=== PATIENT | male | born 1975 | race Caucasian/White ===

== ENCOUNTER 2017-05-13 05:49 | Inpatient (IN) | payer MEDICAID ==
[~2017-05-13] VITALS: Ht 182.9 cm; Wt 110.7 kg
[2017-05-13] VITALS (7 sets, daily range): BP systolic 138–159; BP diastolic 71–87
[~2017-05-13 05:49] MED LIST: BENTYL GENERIC10 MG PO; CARVEDILOL 1212.5 MG PO; CORGARD 40MG TA40 MG PO; DILAUDID2 MG PO; FLEXERIL10 MG PO; FUROSEMIDE 20MG20 MG PO; HUMALOG MIX75/253 ML SC; INSULIN GL100 UNITS/ SC; JANUVIA50 MG PO; KEFLEX 500MG.500 MG PO; LACTULOSE10 GM/15 M PO; LEVAQUIN500 MG PO; METFORMIN HCL1000 MG PO; NYSTATIN SU60 ML/BOT PO; PANTOPRAZOLE SO40 MG PO; SPIRONOLACTONE50 MG PO; TIZANIDINE HCL 44 MG PO; XIFAXAN550 MG PO
--- NOTE | 2017-05-13 06:03 | Emergency Room Report ---
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 N Clinical Suspician of Infection? N Mental Status: 3 - Acutely Altered Sepsis Risk:Low Sepsis Risk Have you (or family members/close friends) recently traveled outside the [place]? N If Yes, where/when: Have you had exposure to infectious disease within the past month? N TB? Other? Specify: Source patient, RN notes reviewed, family, old records Exam Limitations no limitations Comment pt with known liver disease and with recent uk admit - pt with change in mental status with not responding to commands - no fever/rash or trauma Cardiac Chest Pain Chest pain indicative of cardiac No Timing/Duration this evening Severity moderate ALLERGIES Coded Allergies: codeine (11/08/16) cyclobenzaprine (From FLEXERIL) (11/08/16) Home Medications Reported Medications TIZANIDINE HCL (Tizanidine Hcl 4 Mg Tablet) 2 MG PO 1900 Furosemide (Furosemide) 20 MG PO DAILY PRN DIURETIC #30 TAB Rifaximin (Xifaxan) 550 MG PO BID METFORMIN HCL (Metformin 1000MG) 1,000 MG PO BID Pantoprazole Sodium (Pantoprazole 40MG) 40 MG PO BID Lactulose (Lactulose) 20 GM PO TID INSULIN NPL/INSULIN LISPRO (Humalog Mix 75-25 Kwikpen) 30 UNITS SC BID #30 Carvedilol (Carvedilol 12.5MG) 12.5 MG PO BID #60 Spironolactone (Spironolactone) 50 MG PO DAILY PRN DIURETIC #30 History Medical History General CAD? No Angina: No [place]: No Hypertension? Yes Hyperlipidemia? No CHF? No DVT? No PE? No COPD? No Asthma? No Anemia? No GERD? Yes Gastric ulcers? No GI Bleed? No Hernia? No Thyroid Problems? No Hypothyroidism? No CVA? No Seizures? No Diabetes? Yes Insulin Dependent: Yes Insulin Pump: No Home FSBS? Yes Renal Insuffiency? No End Stage Renal Disease? No UTI? No Stones? Yes BPH? Yes GB Disease: No Nephritic Syndrome? No Asplenia? No Hepatitis? No Sickle Cell Disease? No Arthritis? No Migraines? No Cataracts? No Glaucoma? No MRSA? No HIV? No TB? No Anxiety? Yes Depression? No Cancer? No More? Yes Additional hx: 1. NON ALCOHOLIC CIRRHOSIS OF LIVER 2. GUILLAUME 3. GILBERTS SYNDROME Immunization Hx DT/Tetanus 1-4 Years Ago Flu 2016-17FSN Pneumonia Received In Past Surgical Hx Previous Surgery?Y ESOPHAGIAL BANDING Family History Family Hx Diabetes Yes CAD No Hypertension Yes Hyperlipidemia No Cancer Yes TB No Social History Smoking Hx Smoker: Never Smoker Tobacco: No Type Cigarettes Packs/day N/A Alcohol Alcohol: No Drugs none Review of Systems All Other Systems Reviewed and Negative Constitutional see HPI, denies fever, weakness Eyes denies drainage ENT denies: ear discharge, epistaxis, throat pain. Respiratory denies cough, denies shortness of breath, denies wheezing Cardiovascular denies chest pain, denies palpitations, denies syncope Gastrointestinal denies abdominal pain, denies diarrhea, denies vomiting Genitourinary denies: dysuria, frequency, hesitancy, hematuria. Musculoskeletal denies back pain, denies joint pain, denies joint swelling, denies neck pain Skin denies rash Psychiatric/Neurological see HPI, denies headache, seizure, other Physical Exam Vital Signs Vital Signs Date Time Temp Pulse Resp B/P Pulse O2 O2 Flow FiO2 Ox Delivery Rate 05/13 0741 82 24 147/74 97 05/13 0648 80 24 143/66 97 05/13 0551 98.6 86 12 159/75 98 - WBC >12,000 or <4,000 or 10% bands? 2 or more SIRS Criteria Met? B/P:147/74 MAP:103 Creatinine >2.0? UA output<0.5ml/kg/hr for 2 hrs? Platelet count >100,000? Lactate >2.0mmol/1? INR >1.2 or PTT > than 60 sec? Evidence of Organ Dysfunction? Provider documented clinical suspician of infection? N Sepsis Criteria Count: 1 Sepsis Risk: Low Sepsis Risk General Appearance no apparent distress Eye Exam - bilateral eye PERRL, bilateral eye EOMI, bilateral eye icterus Ear, Nose, Throat dry mm and no evid of tongue biting Neck supple Respiratory Status No: respiratory distress. Lung Sounds bilateral: decreased breath sounds. Cardiovascular regular rate/rhythm, systolic murmur Peripheral Pulses Pulses normal Yes Gastrointestinal soft, no guarding, no rebound Extremities no calf tenderness, swelling Neurologic awake with no focal changes and no posturing. sl tremor Reflexes Reflexes normal No Mental status altered mental status Skin intact Medical Decision Making LABS/Meds/Orders Pt receiving controlled substance in ED? No Results/Orders Laboratory Tests 05/13/17 0640: Lactic Acid 3.2 H 05/13/17 0640: Ammonia 222 H 05/13/17 0555: Sodium 142, Potassium 4.1, Chloride 105, Carbon Dioxide 24, BUN 34 H, Creatinine 2.1 H, Estimated Creat Clear 69, Estimated GFR (MDRD) 35, Glucose 237 H, Calcium 9.3, Total Bilirubin 5.1 H, AST 61 H, ALT 33, Alkaline Phosphatase 166 H, Creatine Kinase 97, CK-MB (CK-2) Rel Index 0.5, CK and CKMB Interp < 0.5, Troponin I < 0.02, Total Protein 7.2, Albumin 3.3 L, Globulin 3.9 H, Albumin/Globulin Ratio 0.8 L, PT 13.0 H, INR 1.20 H, APTT 29.1, WBC 4.4 L, RBC 2.77 L, Hgb 10.4 L, Hct 30.6 L, MCV 110.2 H, RDW 17.7 H, Plt Count 125 L, MPV 8.4, Gran % 66.3, Gran # 2.9, Lymphocytes % 23.9, Monocytes % 6.4, Eosinophils % 3.1, Basophils % 0.4, Lymphocytes # 1.0, Monocytes # 0.3, Eosinophils # 0.1, Basophils # 0.0, PUBS MCHC 34.0, MCH 37.4 H Current Medication Orders Sig/Jarett Start time Last Medication Dose Route Stop Time Status Admin Sodium Chloride 1,000 ML .STK-MED ONE 05/13 731 DC IV Lactulose 60 GM ONCE ONE 05/13 730 DC 05/13 KS 05/13 07 0748 Sodium Chloride 1,000 ML .Q10H 05/13 715 AC IV 05/13 190 Sodium Chloride 10 ML PRN PRN 05/13 0715 AC IV 05/14 703 Sodium Chloride 1,000 ML .STK-MED ONE 05/13 707 DC IV Sodium Chloride 10 ML PRN PRN 05/13 06 AC IV 05/14 558 Orders Procedure Date/time Status DIET-NOTHING BY MOUTH 05/13 B Active Decision to admit 05/13 735 Active LACTIC ACID FOLLOW UP 05/13 720 Active CULTURE, BLOOD 05/13 702 Active LACTIC ACID 05/13 702 Complete FSBS REQUEST BY CARE AREA 05/13 605 Active ELECTROCARDIOGRAM REQUEST 05/[address] SCAN REQ 05/13 558 Active IV SALINE LOCK 05/13 558 Active PARTIAL THROMBOPLASTIN TIME 05/13 558 Complete PROTHROMBIN TIME 05/13 558 Complete COMPLETE METABOLIC PANEL 05/13 558 Complete CBC WITH AUTO DIFF 05/13 558 Complete CARDIAC ENZYMES 05/13 558 Complete AMMONIA 05/13 558 Complete CM/EKG 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 ST/Twave chgs XRAY/CT/US XRAY/CT/US 1 XRAY chest XR interpretation by reviewed by me Xray Results abnormal (cm) CT head CT interpretation by discussed w/radiologist Time results known: 623 CT Results normal/NAD XRAY/CT/US [address] interpretation by discussed w/radiologist Time results known: 811 CT Results normal/NAD Departure Departure Time of Disposition 08 Disposition DC/XFER from ER to [facility] Clinical Impression Primary Impression: Hepatic encephalopathy Secondary Impressions: Renal insufficiency Condition STABLE Referrals JOEY ARNDT (Family) discussed with dr costello ED Critical Care Critical Care Yes Time spent 75-104 min Vital system(s) involved: Metabolic Failure I was present at bedside for Coordinating pt's care, Interpreting EKGs/Strips , Reviewing lab results, Reviewing old records, Discussing pt condition, For re- examinations, Examining radiographs at 0813
[2017-05-13 06:12] LABS: LYMPH % 23.9 % (10-50)
[2017-05-13 06:18] LABS: HEMOGLOBIN 10.4 g/dL (14.1-18.0)
[2017-05-13 06:42] LABS: BUN 34 mg/dL (7-18); GFR (ESTIMATED) 35 ML/MIN (>60)
--- NOTE | 2017-05-13 07:27 | RADIOLOGY REPORT PS360 ---
CHEST-AP VIEW ONLY HISTORY: Shortness of breath sob ORDERING PHYSICIAN: Jamila Monreal MD PATIENT AGE: 42 years COMPARISON: 11/06/2016 FINDINGS: There are low lung volume with mild cardiomegaly. Mediastinum is also prominent but could be related to the supine AP technique no lobar consolidation or collapse is evident. IMPRESSION: Cardiomegaly with mild prominence of the mediastinum.
--- NOTE | 2017-05-13 07:29 | RADIOLOGY REPORT PS360 ---
CT HEAD W/O CONTRAST HISTORY: Unresponsive, altered mental status/memory loss/confusion or disorientation STROKE PROTOCOL ORDERING PHYSICIAN: Jamila Monreal MD PATIENT AGE: 42 years COMPARISON: None TECHNIQUE: Axial images obtained without contrast. Brain and bone windows reviewed. FINDINGS: No midline shift, mass effect, intracranial hemorrhage, hydrocephalus, or extra-axial fluid collection is evident. The calvarium has an unremarkable appearance. No mastoid effusion. The visualized paranasal sinuses are unremarkable. IMPRESSION: Negative CT head without contrast. No acute finding. There is no evidence of intracranial hemorrhage, focal mass, or acute territorial infarction. A negative CT does not exclude an acute CVA. A follow-up head CT or MRI is recommended if neurological symptoms persist
--- NOTE | 2017-05-13 13:09 | ACUTE CARE PROGRESS NOTE (QUA) ---
Progress Notes Subjective Date 05/13/17 Time 1258 Note 42 y.o. WM with liver failure, due to GUILLAUME. Patient of [facility]. No beds at , so admitted here. Treated with fluids and lactulose in ER with improvement in ammonia level. Patient is seen in ICU. He is responsive, but not really cogent. No family present. Objective Findings Laboratory Tests 05/13/17 1025: Lactic Acid 4.3 H 05/13/17 1025: Ammonia 130 H 05/13/17 1025: Sodium 145, Potassium 4.1, Chloride 107, Carbon Dioxide 22, BUN 32 H, Creatinine 1.9 H, Estimated Creat Clear 76, Estimated GFR (MDRD) 39, Glucose 176 H, Calcium 9.3, Total Bilirubin 6.6 H, AST 55 H, ALT 30, Alkaline Phosphatase 161 H, Total Protein 7.4, Albumin 3.4, Globulin 4.0 H, Albumin/ Globulin Ratio 0.9 L 05/13/17 0640: Lactic Acid 3.2 H 05/13/17 0640: Ammonia 222 H 05/13/17 0555: Sodium 142, Potassium 4.1, Chloride 105, Carbon Dioxide 24, BUN 34 H, Creatinine 2.1 H, Estimated Creat Clear 69, Estimated GFR (MDRD) 35, Glucose 237 H, Calcium 9.3, Total Bilirubin 5.1 H, AST 61 H, ALT 33, Alkaline Phosphatase 166 H, Creatine Kinase 97, CK-MB (CK-2) Rel Index 0.5, CK and CKMB Interp < 0.5, Troponin I < 0.02, Total Protein 7.2, Albumin 3.3 L, Globulin 3.9 H, Albumin/Globulin Ratio 0.8 L, PT 13.0 H, INR 1.20 H, APTT 29.1, WBC 4.4 L, RBC 2.77 L, Hgb 10.4 L, Hct 30.6 L, MCV 110.2 H, RDW 17.7 H, Plt Count 125 L, MPV 8.4, Gran % 66.3, Gran # 2.9, Lymphocytes % 23.9, Monocytes % 6.4, Eosinophils % 3.1, Basophils % 0.4, Lymphocytes # 1.0, Monocytes # 0.3, Eosinophils # 0.1, Basophils # 0.0, PUBS MCHC 34.0, MCH 37.4 H Microbiology 05/13 640 BLOOD: Anaerobic Blood Culture - RECD 05/13 640 BLOOD: Aerobic Blood Culture - RECD 05/13 640 BLOOD: Anaerobic Blood Culture - RECD 05/13 640 BLOOD: Aerobic Blood Culture - RECD Last VS-Temp:98.6 B/P:142/83 Pulse:91 Resp:20 SaO2:97 Last weight lbs:237 oz:0 K.503 Method:Floor Scales Exam General appearance: awake, no acute distress Eyes: scleral icterus ENT: mucous membranes moist Cardiovascular: regular rate & rhythm Respiratory: clear to auscultation ABD: soft, no tenderness (ascites is likely) Extremities: edema (trace) Assessment/Plan Problem List 1. Cirrhosis 2. Diabetes mellitus Status: Chronic 3. GUILLAUME (nonalcoholic steatohepatitis) Status: Chronic 4. Chronic liver failure Status: Chronic 5. Hepatic encephalopathy 6. Ascites Patient condition Guarded Plan: see orders. GI consult. Transfer when possible. This inpt stay is expected to cross 2 MNs from start of care No at 1308
--- NOTE | 2017-05-13 18:00 | HISTORY AND PHYSICAL REPORT ---
History and Physical (FCA) Date of admission: 05/13/17 Chief complaint: Altered mental status History: History of Present Illness: Mr Washington is a 42 y.o. WM with liver failure, due to GUILLAUME. Patient of [facility] and is on the transplant list. Is follwed by the clinic q 4-6 weeks. No beds were available at , so he was admitted here. Family MD is Dr. Zaldivar in [place]. Patient was discharged from [facility] about 3 days ago. He was doing well. Last night he became poorly responsive and was picking at the air. She checked his BS which was in the 200's and then called EMS who brought him to [facility] ER. He was treated with fluids and lactulose in ER with improvement in ammonia level. At time of this exam patient is coherent and answers all questions appropritely. and son are at bedside. He is hungry. He denies pain and SOB. He stated several times during the exam that he will not go to . His last admission was a bad experience. His bowels are moving in response to the lactulose. His states he normally takes 40mg qid. Past Medical History: Medical History: CAD? No Angina: No [place]: No Hypertension? Yes Hyperlipidemia? No CHF? No DVT? No PE? No COPD? No Asthma? No Anemia? No GERD? Yes Gastric ulcers? No GI Bleed? No Hernia? No Thyroid Problems? No Hypothyroidism? No CVA? No Seizures? No Diabetes? Yes Insulin Dependent: Yes Insulin Pump: No Home FSBS? Yes Renal Insuffiency? No UTI? No Stones? Yes BPH? Yes GB Disease: No Nephritic Syndrome? No Asplenia? No Hepatitis? No Sickle Cell Disease? No Arthritis? No Migraines? No Cataracts? No Glaucoma? No MRSA? No HIV? No TB? No Anxiety? Yes Depression? No Cancer? No More? Yes Additional hx: 1. NON ALCOHOLIC CIRRHOSIS OF LIVER 2. GUILLAUME 3. GILBERTS SYNDROME Surgical history: Previous Surgery?Y ESOPHAGIAL BANDING Medications: Reported Medications TIZANIDINE HCL (Tizanidine Hcl 4 Mg Tablet) 2 MG PO 1900 Furosemide (Furosemide) 20 MG PO DAILY PRN DIURETIC #30 TAB Rifaximin (Xifaxan) 550 MG PO BID METFORMIN HCL (Metformin 1000MG) 1,000 MG PO BID Pantoprazole Sodium (Pantoprazole 40MG) 40 MG PO BID Lactulose (Lactulose) 20 GM PO TID INSULIN NPL/INSULIN LISPRO (Humalog Mix 75-25 Kwikpen) 30 UNITS SC BID #30 Carvedilol (Carvedilol 12.5MG) 12.5 MG PO BID #60 Spironolactone (Spironolactone) 50 MG PO DAILY PRN DIURETIC #30 Allergies: Coded Allergies: codeine (11/08/16) cyclobenzaprine (From FLEXERIL) (11/08/16) Family History: Family history: Postive for: DM, HTN, cancer. Social History: Smoking Hx Tobacco: No Smoker: Never Smoker Type: N/A Packs/day: N/A Are you exposed to second hand No Alcohol: Alcohol: No Hx of Drug Use: Drug Use? No Patien't marital status is: Patient's support system is: excellent Review of Systems: ENT No: ear ache, mouth pain, sore throat. Cardiovascular No: chest pain, edema, palpitations. Respiratory No: shortness of air, hemoptysis, non-productive, productive cough (sputum), wheezing. GI No: GERD, abdominal pain, constipation, diarrhea, hematemeis, hematochezia, melena, nausea, vomitting. (male) No: frequency, hematuria. Neurological Positive for: confusion. No: headache, seizure, syncope. Musculoskeletal No: extremity pain, joint pain. Additional information: leg weakness at times Physical Exam: Vital signs: 1ST Vital Signs Result Date Time Pulse Ox 98 05/13 551 B/P 159/75 05/13 551 Temp 98.6 05/13 551 Pulse 86 05/13 551 Resp 12 05/13 551 O2 Delivery ROOM AIR 05/13 1308 Exam: General appearance: alert, no acute distress, shakes when in sitting position Eyes: anicteric, pupils reactive to light ENT: mucous membranes moist, pharynx normal Neck: non-tender, carotid bruit (versus radiating murmur), lymphadenopathy ( absent), thyroid (normal) Cardiovascular: regular rate & rhythm, murmur Respiratory: clear to auscultation (bilat anterior and posterior) ABD: non-distended, soft, bowel sounds present Extremities: no peripheral edema, pedal pulses (present), no calf tenderness Neuro: alert, oriented, speech is slow Lab data: Labs: Laboratory Tests 05/13/17 1025: Lactic Acid 4.3 H 05/13/17 1025: Ammonia 130 H 05/13/17 1025: Sodium 145, Potassium 4.1, Chloride 107, Carbon Dioxide 22, BUN 32 H, Creatinine 1.9 H, Estimated Creat Clear 76, Estimated GFR (MDRD) 39, Glucose 176 H, Calcium 9.3, Total Bilirubin 6.6 H, AST 55 H, ALT 30, Alkaline Phosphatase 161 H, Total Protein 7.4, Albumin 3.4, Globulin 4.0 H, Albumin/ Globulin Ratio 0.9 L 05/13/17 06: Lactic Acid 3.2 H 05/13/1740: Ammonia 222 H 05/13/17 0555: Sodium 142, Potassium 4.1, Chloride 105, Carbon Dioxide 24, BUN 34 H, Creatinine 2.1 H, Estimated Creat Clear 69, Estimated GFR (MDRD) 35, Glucose 237 H, Calcium 9.3, Total Bilirubin 5.1 H, AST 61 H, ALT 33, Alkaline Phosphatase 166 H, Creatine Kinase 97, CK-MB (CK-2) Rel Index 0.5, CK and CKMB Interp < 0.5, Troponin I < 0.02, Total Protein 7.2, Albumin 3.3 L, Globulin 3.9 H, Albumin/Globulin Ratio 0.8 L, PT 13.0 H, INR 1.20 H, APTT 29.1, WBC 4.4 L, RBC 2.77 L, Hgb 10.4 L, Hct 30.6 L, MCV 110.2 H, RDW 17.7 H, Plt Count 125 L, MPV 8.4, Gran % 66.3, Gran # 2.9, Lymphocytes % 23.9, Monocytes % 6.4, Eosinophils % 3.1, Basophils % 0.4, Lymphocytes # 1.0, Monocytes # 0.3, Eosinophils # 0.1, Basophils # 0.0, PUBS MCHC 34.0, MCH 37.4 H Microbiology 05/13 640 BLOOD: Anaerobic Blood Culture - RECD 05/13 640 BLOOD: Aerobic Blood Culture - RECD 05/13 640 BLOOD: Anaerobic Blood Culture - RECD 05/13 640 BLOOD: Aerobic Blood Culture - RECD Radiology results: Results: 05/13/17 CXR IMPRESSION: Cardiomegaly with mild prominence of the mediastinum. 05/13/17 CT of head IMPRESSION: Negative CT head without contrast. No acute finding. There is no evidence of intracranial hemorrhage, focal mass, or acute territorial infarction. A negative CT does not exclude an acute CVA. A follow-up head CT or MRI is recommended if neurological symptoms persist Diagnosis(es): 1. Cirrhosis 2. Diabetes mellitus Status: Chronic 3. GUILLAUME (nonalcoholic steatohepatitis) Status: Chronic 4. Chronic liver failure Status: Chronic 5. Hepatic encephalopathy 6. Ascites Plan: lactulose and monitor ammonia level at 1800
[2017-05-13] MEDS ORDERED: GABAPENTIN 600600 MG PO (18:56)
--- NOTE | 2017-05-13 22:28 | RADIOLOGY REPORT PS360 ---
PROCEDURE: 2-D M-mode and color Doppler study INDICATIONS FOR THE TEST: Chest pain COPD Heart Murmur Tobacco Smoking Palpitations Fatigue Syncope Edema Hypertension Diabetes Mellitus Rheumatic Fever SOB BERRIOS Obesity Hyperlipidemia Family History HD Additional History CARDIOMEGALY, LIVER FAILURE PATIENT INFORMATION HEIGHT: 72 WEIGHT:246 GENDER: Male B/P:142/83 2-D/M-MODE INTERPRETATION: 2-D MEASUREMENTS OBSERVED VALUES IN CMS Right Ventricular Dimension (RVDd) 3.1 Interventricular Septum (Thickness)(IVsd) 1.0 Left Ventricular Internal Dimensions(LVIDd) 5.6 Left Ventricular Posterior Wall (Thickness)(LVPWd) 1.2 Aortic Root 3.1 Aortic Cusp Separation 1.7 Left Atrial Dimensions (LAD) 4.4 2D 1. Left atrium is mildly enlarged, left ventricle is normal size, the left ventricle wall thickness is upper limit of the normal, there is preserved left ventricular systolic function, visually estimated ejection fraction 55% with no obvious regional wall motion abnormality. There is abnormal septal motion. 2. The right atrium and right ventricle are moderately enlarged, contractility of the right ventricle is mildly reduced. 3. The aortic valve is minimally thickened and fibrosed. 4. The mitral and tricuspid valve are grossly normal. 5. The pulmonic valve is poorly visualized. 6. No significant pericardial effusion noted. DOPPLER INTERROGATION: Doppler interrogation of the aortic mitral and tricuspid valvular presence of mild mitral and tricuspid regurgitation, calculated right ventricular systolic pressure is 64 mmHg consistent with moderate pulmonary hypertension. Diastolic parameters are inconclusive. CONCLUSION: 1. Biatrial enlargement, normal left ventricular size, visually estimated ejection fraction 55%, with no obvious regional wall motion abnormality, there is abnormal septal motion. 2. Moderately enlarged right atrium and right ventricle, contractility of the right ventricle is mildly reduced. 3. Mild mitral and tricuspid regurgitation, calculated right ventricular systolic pressure 64 mmHg consistent with moderate pulmonary hypertension. 4. No significant pericardial effusion noted.
[2017-05-14] VITALS (7 sets, daily range): BP systolic 132–159; BP diastolic 72–92
[2017-05-14 07:00] LABS: HEMOGLOBIN 9.5 g/dL (14.1-18.0); LYMPH # 1.2 K/mm3 (0.7-4.5); LYMPH % 29.9 % (10-50)
--- NOTE | 2017-05-14 07:16 | PHARMACY CLINIC NOTE ---
Patient Demographics Patient Demographics Admission date: 05/13/17 Date: 05/14/17 Time: 0716 Allergies Coded Allergies: codeine (11/08/16) cyclobenzaprine (From FLEXERIL) (11/08/16) HEIGHT- FT: 6 IN: 0.00 K.699 VTE General Information Labs: Laboratory Tests 05/14 630 Hematology Hgb (14.1 - 18.0 g/dL) 9.5 L Hct (42.0 - 52.0 %) 27.3 L Plt Count (142 - 424 K/mm3) 128 L Disclaimer The following section includes nursing documentation that has been pulled in for pharmacy review. Patient's VTE score: 2 Patient's VTE Risk: VERY LOW RISK Clinical trial participant? No VTE prophylaxis NQF [id number] VTE prophylaxis ordered? Yes Type of prophylaxis/treatment: DANE at 0716
--- NOTE | 2017-05-14 08:03 | ACUTE CARE PROGRESS NOTE (QUA) ---
See Addendum Progress Notes Subjective Date 05/14/17 Time 0801 Note Doing well this AM; has been eating and drinking without problems; has been up to the bathroom and was steady on his feet; + stools; voiding QS; denies CP and SOB Objective Findings Laboratory Tests 05/14/17 0630: Ammonia 99 H 05/14/17 0630: Sodium 145, Potassium 3.8, Chloride 111 H, Carbon Dioxide 25, BUN 24 H, Creatinine 1.8 H, Estimated Creat Clear 84, Estimated GFR (MDRD) 41, Glucose 254 H, Calcium 8.6, Total Bilirubin 6.1 H, AST 42 H, ALT 24, Alkaline Phosphatase 138 H, Total Protein 6.5, Albumin 2.9 L, Globulin 3.6 H, Albumin/ Globulin Ratio 0.8 L, WBC 4.2 L, RBC 2.45 L, Hgb 9.5 L, Hct 27.3 L, MCV 111.1 H, RDW 17.6 H, Plt Count 128 L, MPV 8.0, Gran % 57.3, Gran # 2.4, Lymphocytes % 29.9, Monocytes % 8.7, Eosinophils % 3.9, Basophils % 0.3, Lymphocytes # 1.2, Monocytes # 0.4, Eosinophils # 0.2, Basophils # 0.0, PUBS MCHC 35.0, MCH 38.9 H 05/14/17 0612: POC Glucose 249 H 05/13/173: POC Glucose 373 *H 05/13/17 1815: Ammonia 122 H 05/13/17 1629: POC Glucose 326 *H 05/13/17 1025: Lactic Acid 4.3 H 05/13/17 1025: Ammonia 130 H 05/13/17 1025: Sodium 145, Potassium 4.1, Chloride 107, Carbon Dioxide 22, BUN 32 H, Creatinine 1.9 H, Estimated Creat Clear 76, Estimated GFR (MDRD) 39, Glucose 176 H, Calcium 9.3, Total Bilirubin 6.6 H, AST 55 H, ALT 30, Alkaline Phosphatase 161 H, Total Protein 7.4, Albumin 3.4, Globulin 4.0 H, Albumin/ Globulin Ratio 0.9 L Vital Signs Date Time Temp Pulse Resp B/P Pulse O2 O2 Flow FiO2 Ox Delivery Rate 05/14 0403 99.0 80 20 132/81 93 ROOM AIR 05/13 2355 98.8 93 18 138/77 95 ROOM AIR 05/13 2005 98.6 92 16 156/87 95 / 1954 98.6 92 16 156/87 95 ROOM AIR 05/13 1548 98.5 93 18 148/74 97 ROOM AIR / 1413 84 / 1413 98.5 84 18 148/71 09/ 1413 96 ROOM AIR / 1308 98.5 84 18 148/71 96 ROOM AIR 05/13 1223 98.6 91 20 142/83 97 / 0950 91 20 139/85 97 / 0832 91 24 123/98 97 Current Medications Insulin Human [rDNA origin] 0 .STK-MED ONE SC (DC) Insulin Human [rDNA origin] 0 .STK-MED ONE SC (DC) Sodium Chloride 1,000 ML .STK-MED ONE IV (DC) Carvedilol 12.5 MG BID PO Gabapentin 600 MG TID PO Lactulose 30 GM TID WY (CAN) Lactulose 30 GM TID PO Patient Own Medication 1 UNIT BID PO Gabapentin 0 .STK-MED ONE .ROUTE (DC) Diagnostic Test (Pha) 1 EACH W/MEALS&HS FS Insulin Human [rDNA origin] SEE ADMIN CRITERIA FOR LOW INTENSITY SS W/MEALS&HS SC Insulin Human [rDNA origin] 0 .STK-MED ONE SC (DC) Spironolactone 50 MG DAILY PO Sodium Chloride 1,000 ML .Q8H IV Lactulose 60 GM ONCE ONE W[place] (DC) Sodium Chloride 1,000 ML .Q10H IV (DC) Sodium Chloride 10 ML PRN PRN IV (DC) Sodium Chloride 10 ML PRN PRN IV (DC) 05/13 1500 05/13 2300 05/14 0700 Intake Total 1410 Output Total 450 Balance -450 1410 Intake, IV 1410 Output, Stool Output, Urine 450 Patient 246 lb Weight Last VS-Temp:99.0 B/P:132/81 Pulse:80 Resp:20 SaO2:93 ROOM AIR Last weight lbs:246 oz:4 K.699 Method:Bed Scales Exam General appearance: alert, active, no acute distress, well-developed, well- nourished, sits up in the bed without tremors this AM Cardiovascular: regular rate & rhythm Respiratory: clear to auscultation (bilat anterior and posterior) ABD: soft, no tenderness, bowel sounds present Extremities: no peripheral edema Neuro: alert, oriented Assessment/Plan Problem List 1. Cirrhosis 2. Diabetes mellitus Status: Chronic 3. GUILLAUME (nonalcoholic steatohepatitis) Status: Chronic 4. Chronic liver failure Status: Chronic 5. Hepatic encephalopathy 6. Ascites 7. Heart murmur 8. Renal insufficiency 9. Anemia Patient condition Improved Plan: home today This inpt stay is expected to cross 2 MNs from start of care No at 0835 at [phone]
[2017-05-15 00:03] VITALS: BP 183/95
[2017-05-15 03:05] VITALS: BP 156/90
[2017-05-15 04:00] VITALS: BP 163/76
[2017-05-15 06:46] LABS: LYMPH # 0.5 K/mm3 (0.7-4.5); LYMPH % 11.2 % (10-50)
[2017-05-15 07:13] LABS: HEMOGLOBIN 11.1 g/dL (14.1-18.0)
[2017-05-15 07:59] VITALS: BP 180/98
[2017-05-15 08:25] VITALS: BP 180/98
--- NOTE | 2017-05-15 08:34 | ACUTE CARE PROGRESS NOTE (QUA) ---
See Addendum Progress Notes Subjective Date 05/15/17 Time 0735 Note Pt sitting up in bed watching tv with family at bedside. He denies any pain and notes that he has been feeling great since diuresing after lasix dose yesterday, states "ready to go home." Eating well, voiding well, bowels moving normally. Objective Findings Last VS-Temp:97.9 B/P:180/98 Pulse:86 Resp:18 SaO2:95 ROOM AIR Last weight lbs:244 oz:1 K.706 Method:Bed Scales Laboratory Tests 05/15/17 0625: Ammonia 50 05/15/17 0625: Sodium 138, Potassium 5.1, Chloride 101, Carbon Dioxide 29, BUN 21 H, Creatinine 1.8 H, Estimated Creat Clear 83, Estimated GFR (MDRD) 41, Glucose 446 H, Calcium 9.6, Total Bilirubin 8.0 H, AST 50 H, ALT 26, Alkaline Phosphatase 165 H, Total Protein 7.2, Albumin 3.2 L, Globulin 4.0 H, Albumin/ Globulin Ratio 0.8 L, WBC 4.8, RBC 3.02 L, Hgb 11.1 L, Hct 32.9 L, MCV 109.0 H, RDW 16.4, Plt Count 141 L, MPV 9.0, Gran % 81.2 H, Gran # 3.9, Lymphocytes % 11.2, Monocytes % 6.9, Eosinophils % 0.5, Basophils % 0.1, Lymphocytes # 0.5 L, Monocytes # 0.3, Eosinophils # 0.0, Basophils # 0.0, PUBS MCHC 33.3, MCH 36.3 H 05/14/17 2117: POC Glucose 317 *H 05/14/17 1642: POC Glucose 389 *H 05/14/17 1120: POC Glucose 326 *H 05/13/17 Blood cultures: Preliminary: no growth. Exam General appearance: alert, awake, no acute distress Cardiovascular: regular rate & rhythm, normal peripheral pulses Respiratory: CTAB A&P ABD: non-distended, no rebound, soft, no tenderness, no guarding, no organomegaly, no palpable mass, bowel sounds present Extremities: moves all, warm, no calf tenderness, trace bilateral pedal ankle edema Neuro: alert, oriented, speech clear Reviewed: medications, vital signs, lab results, radiology report, nursing notes Assessment/Plan Problem List 1. Cirrhosis 2. Diabetes mellitus Status: Chronic 3. GUILLAUME (nonalcoholic steatohepatitis) Status: Chronic 4. Chronic liver failure Status: Chronic 5. Hepatic encephalopathy 6. Ascites 7. Heart murmur 8. Renal insufficiency 9. Anemia Patient condition Stable Plan: Hgb and BUN improved. Bilirubin increased. Further per Dr. Boyer. This inpt stay is expected to cross 2 MNs from start of care Yes at 0834 at 0961
[2017-05-15 10:18] VITALS: BP 180/98
--- NOTE | 2017-05-15 22:12 | DISCHARGE SUMMARY STANDARD ---
Discharge Summary (FCA2) Date of admission: 05/13/17 Date of discharge: 05/15/17 Problem List: 1. Cirrhosis 2. Diabetes mellitus 3. GUILLAUME (nonalcoholic steatohepatitis) 4. Chronic liver failure 5. Hepatic encephalopathy 6. Ascites 7. Heart murmur 8. Renal insufficiency 9. Anemia 10. CHF (congestive heart failure) History of present illness: Mr Washington is a 42 y.o. WM with liver failure, due to GUILLAUME. He is a patient of [facility] and is on the transplant list; he is follwed by the clinic q 4-6 weeks. No beds were available at , so he was admitted to [facility]; his family MD is Dr. Zaldivar in [place]. Patient was discharged from [facility] about 3 days ago. He was doing well. The night prior to admission he became poorly responsive and was picking at the air. She checked his BS which was in the 200's and then called EMS who brought him to [facility] ER. With evaluation the ammonium level was 222. He was treated with fluids and lactulose in the ER with improvement in ammonia level. At time of exam he was coherent and answered all questions appropritely. and son were at bedside. He was hungry. He denied pain and SOB. He stated several times during the exam that he would not go to . His bowels were moving in response to the lactulose. Exam on admission: Vital signs: 1ST Vital Signs Result Date Time Pulse Ox 98 05/13 0551 B/P 159/75 05/13 0551 Temp 98.6 05/13 0551 Pulse 86 05/13 0551 Resp 12 05/13 0551 O2 Delivery ROOM AIR 05/13 1308 Exam: General appearance: alert, no acute distress, shakes when in sitting position Eyes: anicteric, pupils reactive to light ENT: mucous membranes moist, pharynx normal Neck: non-tender, carotid bruit (versus radiating murmur), lymphadenopathy ( absent), thyroid (normal) Cardiovascular: regular rate & rhythm, murmur Respiratory: clear to auscultation (bilat anterior and posterior) ABD: non-distended, soft, bowel sounds present Extremities: no peripheral edema, pedal pulses (present), no calf tenderness Neuro: alert, oriented, speech is slow Hospital Course: With decreasing ammonia levels patient became alert and began to eat. He was able to ambulate. His bowels continued to move with the lactulose. LFT remained elevated. He developed peripheral edema which responded to IV Lasix. By 05/15/17 he was ready for discharge. Laboratory data this visit: 05/13/17 1025: Lactic Acid 4.3 H 05/13/17 1025: Ammonia 130 H 05/13/17 1025: Sodium 145, Potassium 4.1, Chloride 107, Carbon Dioxide 22, BUN 32 H, Creatinine 1.9 H, Estimated Creat Clear 76, Estimated GFR (MDRD) 39, Glucose 176 H, Calcium 9.3, Total Bilirubin 6.6 H, AST 55 H, ALT 30, Alkaline Phosphatase 161 H, Total Protein 7.4, Albumin 3.4, Globulin 4.0 H, Albumin/ Globulin Ratio 0.9 L 05/13/17 0640: Lactic Acid 3.2 H 05/13/17 0640: Ammonia 222 H 05/13/17 0555: Sodium 142, Potassium 4.1, Chloride 105, Carbon Dioxide 24, BUN 34 H, Creatinine 2.1 H, Estimated Creat Clear 69, Estimated GFR (MDRD) 35, Glucose 237 H, Calcium 9.3, Total Bilirubin 5.1 H, AST 61 H, ALT 33, Alkaline Phosphatase 166 H, Creatine Kinase 97, CK-MB (CK-2) Rel Index 0.5, CK and CKMB Interp < 0.5, Troponin I < 0.02, Total Protein 7.2, Albumin 3.3 L, Globulin 3.9 H, Albumin/Globulin Ratio 0.8 L, PT 13.0 H, INR 1.20 H, APTT 29.1, WBC 4.4 L, RBC 2.77 L, Hgb 10.4 L, Hct 30.6 L, MCV 110.2 H, RDW 17.7 H, Plt Count 125 L, MPV 8.4, Gran % 66.3, Gran # 2.9, Lymphocytes % 23.9, Monocytes % 6.4, Eosinophils % 3.1, Basophils % 0.4, Lymphocytes # 1.0, Monocytes # 0.3, Eosinophils # 0.1, Basophils # 0.0, PUBS MCHC 34.0, MCH 37.4 H 05/14/17 0630: Ammonia 99 H 05/14/17 0630: Sodium 145, Potassium 3.8, Chloride 111 H, Carbon Dioxide 25, BUN 24 H, Creatinine 1.8 H, Estimated Creat Clear 84, Estimated GFR (MDRD) 41, Glucose 254 H, Calcium 8.6, Total Bilirubin 6.1 H, AST 42 H, ALT 24, Alkaline Phosphatase 138 H, Total Protein 6.5, Albumin 2.9 L, Globulin 3.6 H, Albumin/ Globulin Ratio 0.8 L, WBC 4.2 L, RBC 2.45 L, Hgb 9.5 L, Hct 27.3 L, MCV 111.1 H, RDW 17.6 H, Plt Count 128 L, MPV 8.0, Gran % 57.3, Gran # 2.4, Lymphocytes % 29.9, Monocytes % 8.7, Eosinophils % 3.9, Basophils % 0.3, Lymphocytes # 1.2, Monocytes # 0.4, Eosinophils # 0.2, Basophils # 0.0, PUBS MCHC 35.0, MCH 38.9 H 05/14/17 0612: POC Glucose 249 H 05/13/17 2023: POC Glucose 373 *H 05/13/17 1815: Ammonia 122 H 05/13/17 1629: POC Glucose 326 *H 05/13/17 1025: Lactic Acid 4.3 H 05/13/17 1025: Ammonia 130 H 05/13/17 1025: Sodium 145, Potassium 4.1, Chloride 107, Carbon Dioxide 22, BUN 32 H, Creatinine 1.9 H, Estimated Creat Clear 76, Estimated GFR (MDRD) 39, Glucose 176 H, Calcium 9.3, Total Bilirubin 6.6 H, AST 55 H, ALT 30, Alkaline Phosphatase 161 H, Total Protein 7.4, Albumin 3.4, Globulin 4.0 H, Albumin/ Globulin Ratio 0.9 L 05/15/17 0625: Ammonia 50 05/15/17 0625: Sodium 138, Potassium 5.1, Chloride 101, Carbon Dioxide 29, BUN 21 H, Creatinine 1.8 H, Estimated Creat Clear 83, Estimated GFR (MDRD) 41, Glucose 446 H, Calcium 9.6, Total Bilirubin 8.0 H, AST 50 H, ALT 26, Alkaline Phosphatase 165 H, Total Protein 7.2, Albumin 3.2 L, Globulin 4.0 H, Albumin/ Globulin Ratio 0.8 L, WBC 4.8, RBC 3.02 L, Hgb 11.1 L, Hct 32.9 L, MCV 109.0 H, RDW 16.4, Plt Count 141 L, MPV 9.0, Gran % 81.2 H, Gran # 3.9, Lymphocytes % 11.2, Monocytes % 6.9, Eosinophils % 0.5, Basophils % 0.1, Lymphocytes # 0.5 L, Monocytes # 0.3, Eosinophils # 0.0, Basophils # 0.0, PUBS MCHC 33.3, MCH 36.3 H 05/14/17 2117: POC Glucose 317 *H 05/14/17 1642: POC Glucose 389 *H 05/14/17 1120: POC Glucose 326 *H Imagin05/13/17 CXR IMPRESSION: Cardiomegaly with mild prominence of the mediastinum. 05/13/17 CT of head IMPRESSION: Negative CT head without contrast. No acute finding. There is no evidence of intracranial hemorrhage, focal mass, or acute territorial infarction. A negative CT does not exclude an acute CVA. A follow-up head CT or MRI is recommended if neurological symptoms persist ECHO 05/13/17 CONCLUSION: 1. Biatrial enlargement, normal left ventricular size, visually estimated ejection fraction 55%, with no obvious regional wall motion abnormality, there is abnormal septal motion. 2. Moderately enlarged right atrium and right ventricle, contractility of the right ventricle is mildly reduced. 3. Mild mitral and tricuspid regurgitation, calculated right ventricular systolic pressure 64 mmHg consistent with moderate pulmonary hypertension. 4. No significant pericardial effusion noted. Discharge medications: Continue taking these medications: METFORMIN HCL (Metformin 1000MG) 1,000 MG TABLET 1,000 MILLIGRAM ORAL TWICE A DAY Pantoprazole Sodium (Pantoprazole 40MG) 40 MG TABLET.DR 40 MILLIGRAM ORAL TWICE A DAY Lactulose (Lactulose) 10 GM/15 ML SOLUTION 40 GRAM ORAL THREE TIMES A DAY Rifaximin (Xifaxan) 550 MG TABLET 550 MILLIGRAM ORAL TWICE A DAY INSULIN NPL/INSULIN LISPRO (Humalog Mix 75-25 Kwikpen) 100 UNIT/1 ML INSULN.PEN 30 UNITS Subcutaneous Injection TWICE A DAY Qty = 30 Carvedilol (Carvedilol 12.5MG) 12.5 MG TABLET 12.5 MILLIGRAM ORAL TWICE A DAY Qty = 60 Spironolactone (Spironolactone) 50 MG TABLET 50 MILLIGRAM ORAL DAILY as needed for DIURETIC Qty = 30 Furosemide (Furosemide) 20 MG TABLET 20 MILLIGRAM ORAL DAILY as needed for DIURETIC Qty = 30 TIZANIDINE HCL (Tizanidine Hcl 4 Mg Tablet) 4 MG TABLET 2 MILLIGRAM ORAL 1900 Instructions: PATIENT TAKE 1/2 TABLET OF 4 MG 2 HOURS BEFORE BEDTIME AND REMAINDER AT BEDTIME. Gabapentin (Gabapentin 600MG) 600 MG TABLET 600 MILLIGRAM ORAL THREE TIMES A DAY Disposition: Patient was discharged to home in stable and fair condition. Meds as per reconciliation sheet. Diet was to be low fat/cholesterol. Activity was to be limited. Follow-Up with Suzette Garay at [facility]. at [phone]
--- OUTSIDE RECORDS SUMMARY | 2017-06-14 12:18 | External Medical Summary Rpt | Continuity of Care Document ---
Author Author Organization Address Unknown Phone Unavailable Care Team Providers Care Gang Saw Operator Name Role Phone , Unavailable Unavailable EMS Current Medications Section EMS Allergies and Adverse Reactions EMS Past Medical History Medications Administered Section EMS Procedures Performed EMS Vital Signs EMS Patient Care Report Narrative EC-2 responded to [facility] for a transfer to [facility]. Upon arrival the nursing staff gave report on patient that he was on transplant list for liver transplant due to cirrhosis of the liver. Nursing staff stated patient asked to go to [facility]. Nursing staff stated patient had a 20 gauge IV in left wrist with saline running at 75 ml/hr. Nursing staff also stated patient did not need IV fluids but for patient to qualify for transfer they needed to run. Patient was assisted to the stretcher where he was placed, and secured for transport. Patient was taken to the ambulance and vital signs were obtained, monitored, and charted while in care of EMS crew. IV fluids were discontinued due to hypertension. Patient was transported non-emergency due to stable condition. Patient arrived at [facility] with no notable changes in condition. Patient was placed in bed and report was given to nursing staff. All signatures were obtained. EC-2 cleared the hospital and returned to service.
--- OUTSIDE RECORDS SUMMARY | 2017-06-14 12:18 | External Medical Summary Rpt | Continuity of Care Document ---
Author Author Organization Address Unknown Phone Unavailable Care Team Providers Care Attache Name Role Phone , Unavailable Unavailable EMS Current Medications Section EMS Allergies and Adverse Reactions EMS Past Medical History Medications Administered Section EMS Procedures Performed EMS Vital Signs EMS Patient Care Report Narrative EC-2 responded to [facility] for a transfer to [facility]. Upon arrival the nursing staff gave report on patient that he was on transplant list for liver transplant due to cirrhosis of the liver. Nursing staff stated patient asked to go to [facility]. Nursing staff stated patient had a 20 [...] due to stable condition. Patient arrived at [facility] with no notable changes in condition. Patient was placed in bed and report was given to nursing staff. All signatures were obtained. EC-2 cleared the hospital and returned to service.
--- OUTSIDE RECORDS SUMMARY | 2017-06-14 12:26 | External Medical Summary Rpt ---
Author Author , UNIQUE CALHOUN Address Unknown Phone [email or web address] Care Team Providers Care Coke Crane Operator Name Role Phone SIMONE CHICHI, SIMONE CHICHI Unavailable Unavailable ARNOLD, ARNOLD Unavailable Unavailable ARNOLD LAST, ARNOLD Unavailable Unavailable LAST EDUARDO LES, EDUARDO Unavailable Unavailable LES LAYTON, LAYTON Unavailable Unavailable AVALLONE, AVALLONE Unavailable Unavailable BEINEKE, BEINEKE Unavailable Unavailable PULIDO, PULIDO Unavailable Unavailable [facility] Unavailable Unavailable [facility], [facility] PH[facility]IAN Unavailable Unavailable PRACTICE L, [facility] Un[facility] Unavailable [facility] Unavailable Unavailable SERVICE, [facility] BRIAN, Unavailable Unavailable BRIAN MICHAEL EDGAR, MICHAEL Unavailable Unavailable EDGAR MICHAEL EDGAR IGN, Unavailable Unavailable MICHAEL EDGAR IGN [facility] Unavailable Unavailable INC, [facility] Unavailable Unavailable INC, [facility] CHANDEL, CHANDEL Unavailable Unavailable CHANDEL COLLINS, CHANDEL Unavailable Unavailable COLLINS CHESTNUT, CHESTNUT Unavailable Unavailable [facility] Unavailable Unavailable PHYSICIAN PRA, [facility], Unavailable Unavailable [facility] JOSE ANTONIO LUISA, JOSE ANTONIO LUISA Unavailable Unavailable GALLO LINDA, GALLO LINDA Unavailable Unavailable DAXA II THO, DAXA II Unavailable Unavailable THO ROBERTH, ROBERTH Unavailable Unavailable ANGELA DECALVO, Unavailable Unavailable ANGELA DECALVO DEPA RAY, DEPA RAY Unavailable Unavailable MEI, MEI Unavailable Unavailable ALONDRA, ALONDRA Unavailable Unavailable PAMELA, PAMELA Unavailable Unavailable BEARDEN, BEARDEN Unavailable Unavailable FREEMAN SET, FREEMAN SET Unavailable Unavailable GREEN, GREEN Unavailable Unavailable GREEN JAMIE, GREEN JAMIE Unavailable Unavailable LAYNE RHO, LAYNE Unavailable Unavailable RHO GUNDUMALLA, Unavailable Unavailable GUNDUMALLA G[facility]DUM[facility]A GOP, Unavailable Unavailable [facility] DIAZ ISIDRA, DIAZ Unavailable Unavailable ISIDRA ONEAL, ONEAL Unavailable Unavailable DAMIAN, DAMIAN Unavailable Unavailable DAMIAN LASHAWN, DAMIAN LASHAWN Un[facility] Un[facility], [facility] RELOCATION COUNSELOR, RELOCATION COUNSELOR Unavailable Unavailable SHAY III, SHAY Unavailable Unavailable III SHAY III MARY KATE, Unavailable Unavailable SHAY III MARY KATE [facility] Unavailable [facility], [facility], [facility] MATTHEW, MATTHEW Unavailable Unavailable [facility] NURSE Unavailable Unavailable PRACTITIONER GR, [facility] NURSE PRACTITIONER GR GOOD JERR[facility], Unavailable Unavailable [facility] BRANDAN PET, BRANDAN PET Unavailable Unavailable BENSON, BENSON Unavailable Unavailable [facility] Un[facility], [facility], Unavailable Unavailable [facility] JESSICA, JESSICA Unavailable Unavailable [facility] Un[facility] Unavailable [facility], [facility] DL, DL Unavailable Unavailable [facility], Unavailable Unavailable [facility] TREVON, TREVON Unavailable Unavailable LUBBERS WAL, LUBBERS Unavailable Unavailable WAL MARDINI, MARDINI Unavailable Unavailable MERHAR, MERHAR Unavailable Unavailable RHONDA, RHONDA Unavailable Unavailable MANCUSO, MANCUSO Unavailable Unavailable BURGOS, BURGOS Unavailable Unavailable BURGOS JENNIFER, BURGOS JENNIFER Unavailable Unavailable RONAN, RONAN Unavailable Unavailable LINDA CLEO PETERSON Unavailable Unavailable CONSULTING SRV, LINDA GALLO MD CONSULTING SRV [facility] Unavailable Unavailable EMS, [facility] Unavailable Unavailable EMS, [facility] EMS [facility] Unavailable Unavailable PHYSICIANS PLL[facility], [facility], Unavailable Unavailable PLLC, [facility], Unavailable Unavailable [facility], Unavailable Unavailable [facility] RICCI DUNN, Unavailable Unavailable RICCI DUNN MATIAS, MATIAS Unavailable Unavailable MATIAS MUH, MATIAS Unavailable Unavailable MUH BHANU, BHANU Unavailable Unavailable DARA, DARA Unavailable Unavailable DARA INA, DARA INA Unavailable Unavailable TURNER GRE, Unavailable Unavailable TURNER GRE BRASHER, BRASHER Unavailable Unavailable ROSENAU BELLA, ROSENAU Unavailable Unavailable BELLA NIESHA, NIESHA Unavailable Unavailable SCALF, SCALF Unavailable Unavailable SCALF MARILIN, SCALF MARILIN Unavailable Unavailable SHEDLOFSKY, Unavailable Unavailable [facility]LO[facility]KY WELLER KATHY, WELLER Unavailable Unavailable KATHY SOKAN, SOKAN Unavailable Unavailable SOKAN BAB, SOKAN BAB Unavailable Unavailable SOTINGEANU, Unavailable Unavailable [facility], [facility] Unavailable Unavailable PHYSICIAN SERVI, [facility] WEBBER, WEBBER Unavailable Unavailable WEBBER RAY, WEBBER Unavailable Unavailable RAY SWINEY PAT, SWINEY Unavailable Unavailable PAT FLORENCIO TER, FLORENCIO TER Unavailable Unavailable [facility] Unavailable Unavailable HOSPITALS, [facility], Unavailable Unavailable [facility] Unavailable [facility] BRENNAN MARY KATE, BRENNAN Unavailable Unavailable MARY KATE JIM REGINALD, JIM Unavailable Unavailable REGINALD ALANIS, ALANIS Unavailable Unavailable [facility] Unavailable Unavailable DEPT [facility], [facility] DE[facility] Unavailable Unavailable DEPT [facility], [facility] NICOLAS VALENZUELA Unavailable Unavailable ZAGUROVSKAYA, Unavailable Unavailable ZAGUROVSKAYA OLGA, OLGA Unavailable Unavailable Purpose Continuity of Care Document - 06-16-2014 through 2016 Problems Code Diagnosis DOS Provider Status K70.30 ALCOHOLIC 05-15-2017 CIRRHOSIS OF LIVER WITHOUT ASCITES K76.6 PORTAL 05-15-2017 HYPERTENSIO N R50.9 FEVER, 05-15-2017 UNSPECIFIED E11.9 TYPE 2 05-15-2017 DIABETES MELLITUS WITHOUT COMPLICATIO NS E80.4 GILBERT 05-15-2017 SYNDROME I10 ESSENTIAL 05-15-2017 (PRIMARY) HYPERTENSIO N R10.31 RIGHT LOWER 05-15-2017 [facility] PAIN 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 05-15-2017 (CURRENT) USE OF INSULIN Z79.84 RESIDENTIAL 05-15-2017 (CURRENT) USE OF ORAL HYPOGLYCEMI C DRUGS Z79.899 OTHER LONG 05-15-2017 TERM (CURRENT) DRUG THERAPY K37 UNSPECIFIED 05-09-2017 APPENDICITI S D539 NUTRITIONAL 05-08-2017 [facility] ANEMIA SERV UNSPECIFIED FOUNDATION D696 THROMBOCYTO 05-08-2017 [facility] PEN[place] [facility] UNSPECIFIED FOUNDATION R109 UNSPECIFIED 05-08-2017 [facility] ABDOMIN[facility] PAIN [facility] R140 ABDOMINAL 05-08-2017 [facility] DISTENSION [facility] GASEOUS [facility] K7581 NONALCOHOLI 05-06-2017 [facility] C N EMERG[facility]Y STEATOHEPAT PHYS ITIS E11.65 TYPE 2 05-05-2017 DIABETES MELLITUS WITH HYPERGLYCEM IA G89.29 OTHER 05-05-2017 CHRONIC PAIN K74.60 UNSPECIFIED 08-28-2017 CIRRHOSIS OF LIVER R10.2 PELVIC AND 05-05-2017 PERINEAL PAIN R10.9 UNSPECIFIED 05-05-2017 ABDOMINAL PAIN Z88.8 ALLERGY 05-05-2017 STATUS TO OTHER DRUGS, MEDICAMENTS AND BIOLOGICAL SUBSTANCES STATUS R1031 RIGHT LOWER 04-30-2017 [facility] N EMERGENCY PAIN PHYS D63.1 ANEMIA IN 03-31-2017 CHRONIC KIDNEY DISEASE E11.22 TYPE 2 03-31-2017 DIABETES MELLITUS WITH DIABETIC CHRONIC KIDNEY DISEASE G89.4 CHRONIC 03-31-2017 PAIN SYNDROME I12.9 HYPERTENSIV 03-31-2017 E CHRONIC KIDNEY DISEASE WITH STAGE 1 THROUGH STAGE 4 CHRONIC KIDNEY DISEASE, OR UNSPECIFIED CHRONIC KIDNEY DISEASE N18.9 CHRONIC 03-31-2017 KIDNEY DISEASE, UNSPECIFIED R10.13 EPIGASTRIC 03-31-2017 PAIN Z88.6 ALLERGY 03-31-2017 STATUS TO ANALGESIC AGENT STATUS D63.8 ANEMIA IN 03-31-2017 OTHER CHRONIC DISEASES CLASSIFIED ELSEWHERE K76.0 FATTY 03-31-2017 (CHANGE OF) LIVER, NOT ELSEWHERE CLASSIFIED K80.20 CALCULUS OF 03-31-2017 GALLBLADDER WITHOUT CHOLECYSTIT IS WITHOUT OBSTRUCTION M89.9 DISORDER OF 03-31-2017 BONE, UNSPECIFIED R10.819 ABDOMINAL 03-31-2017 TENDERNESS, UNSPECIFIED SITE E119 TYPE 2 03-31-2017 [facility] DIABETES N PHYSICIAN MELLITUS SERVI WITHOUT COMPLICATIO NS E804 GILBERT 03-31-2017 [facility] SYNDROME N PHYSICIAN SERVI K7290 HEPATIC 03-31-2017 [facility] FAILURE N PHYSICIAN UNSPECIFIED SERVI WITHOUT COMA G8929 OTHER 03-28-2017 [facility] N400 BENIGN 03-28-2017 [facility] HYPERPLASIA [facility]ALS WO LW URIN TRACT SX E1140 TYPE 2 DM 03-06-2017 [facility] INC NEUROPATHY UNSPECIFIED E118 TYPE 2 03-06-2017 [facility] DIABETES BRACE MELLITUS PROSTH INC W/UNS COMPLICATIO NS K74.69 OTHER 03-04-2017 CIRRHOSIS OF LIVER M54.5 LOW BACK 03-04-2017 PAIN R79.89 OTHER 03-04-2017 SPECIFIED ABNORMAL FINDINGS OF BLOOD CHEMISTRY K8590 ACUTE 03-02-2017 [facility] PANCREATITI N EMERGENCY S WO PHYS NECROSIS/IN FECTION UNSPEC R1011 RIGHT UPPER 03-02-2017 [facility] [place] [facility] PAIN K72.90 HEPATIC 06-12-2017 FAILURE, UNSPECIFIED WITHOUT COMA K75.81 NONALCOHOLI 02-17-2017 C STEATOHEPAT ITIS (GUILLAUME) R51 HEADACHE 02-17-2017 Z91.19 PATIENT'S 02-17-2017 NONCOMPLIAN CE WITH OTHER MEDICAL TREATMENT AND REGIMEN I10 ESSENTIAL 02-14-2017 HOSPITAL PRIMARY MEDICINE HYPERTENSIO SERVICES O N K7200 ACUTE AND 02-14-2017 HOSPITAL SUBACUTE MEDICINE HEPATIC SERVICES O FAILURE WITHOUT COMA R51 HEADACHE 02-14-2017 [facility] Z794 BOTTOM CRANE OPERATOR 02-14-2017 [facility] CURRENT USE [facility] Z7984 RESIDENTIAL 02-14-2017 [place] USE OF ORAL [facility] HYPOGLYCEMI C DRUGS Z9119 PATIENTS 02-14-2017 [place] NONCOMPLIAN [facility] CE W/OTH HOSPITAL MED TX & REGIMEN E11.40 Type 2 02-06-2017 diabetes mellitus with diabetic neuropathy, unspecified E66.9 Obesity, 02-06-2017 unspecified E87.6 Hypokalemia 02-06-2017 K92.0 Hematemesis 02-06-2017 K92.1 Melena 02-06-2017 N17.9 Acute 02-06-2017 kidney failure, unspecified N40.0 Benign 02-06-2017 prostatic hyperplasia without lower urinary tract symptoms Z76.82 Awaiting 02-06-2017 organ transplant status I11.9 HYPERTENSIV 01-31-2017 E HEART DISEASE WITHOUT HEART FAILURE D649 ANEMIA 01-31-2017 [facility] UNSPECIFIED SERV FOUNDATION K92.2 Gastrointes 01-30-2017 tinal hemorrhage, unspecified K922 GASTROINTES 01-30-2017 [facility] TINAL SERV HEMORRHAGE FOUNDATION UNSPECIFIED E1165 TYPE 2 01-29-2017 [place] DIABETES FAMILY MELLITUS [facility] HYPERGLYCEM [place] I66246 PAIN IN 01-29-2017 [facility] RIGHT FOOT [facility] [id number] PAIN IN 01-29-2017 [facility] LEFT FOOT [facility] M79.671 PAIN IN 01-28-2017 RIGHT FOOT M79.672 PAIN IN 01-28-2017 LEFT FOOT R60.0 LOCALIZED 01-28-2017 [facility] R600 LOCALIZED 01-26-2017 [facility] EDEMA N EMERGENCY PHYS R739 HYPERGLYCEM 01-26-2017 [facility] IA N EMERGENCY UNSPECIFIED PHYS D62 Acute 01-21-2017 posthemorrh agic anemia I16.0 Hypertensiv 01-21-2017 e urgency K21.0 Gastro-esop 01-21-2017 hageal reflux disease with esophagitis R40.2143 Coma scale, 01-21-2017 eyes open, spontaneous , at hospital admission R40.2253 Coma scale, 01-21-2017 best verbal response, oriented, at hospital admission R40.2363 Coma scale, 01-21-2017 best motor response, obeys commands, at hospital admission Z68.34 Body mass 01-21-2017 index (BMI) 34.0-34.9, adult D62 ACUTE 01-15-2017 [facility] POSTHEMORRH SERVICES AGIC ANEMIA K209 ESOPHAGITIS 01-15-2017 [facility] UNSPECIFIED K921 MELENA 01-15-2017 [facility] D509 IRON 01-12-2017 [facility] DEFICIENCY N PHYSICIAN ANEMIA SERVI UNSPECIFIED I160 HYPERTENSIV 01-12-2017 [facility] E URGENCY N PHYSICIAN SERVI K219 GASTRO-ESOP 01-12-2017 [facility] H REFLUX N PHYSICIAN DISEASE SERVI WITHOUT ESOPHAGITIS N179 ACUTE 01-12-2017 [facility] UNSPECIFIED Z7682 AWAITING 01-12-2017 [facility] STATUS Z79.2 RESIDENTIAL 12-31-2016 (CURRENT) USE OF ANTIBIOTICS X31987 EFFUSION 12-27-2016 [facility] RIGHT ANKLE N EMERGENCY PHYS T82302 EFFUSION 12-27-2016 [facility] LEFT ANKLE N EMERGENCY PHYS R06.00 DYSPNEA, 12-26-2016 UNSPECIFIED D64.9 Anemia, 12-23-2016 unspecified E87.1 Hypo-osmola 12-23-2016 lity and hyponatremi a N39.0 Urinary 12-23-2016 tract infection, site not specified N390 URINARY 12-20-2016 [facility] TRACT N EMERGENCY INFECTION PHYS SITE NOT SPECIFIED R0609 OTHER FORMS 12-20-2016 [facility] [place] OF [facility] RADIOLOGY R110 NAUSEA 12-20-2016 [facility] N EMERGENCY PHYS E80.6 Other 12-17-2016 disorders of bilirubin metabolism R11.0 Nausea 12-16-2016 R079 CHEST PAIN 12-16-2016 [facility] UNSPECIFIED SERV FOUNDATION R1084 GENERALIZED 12-16-2016 [facility] ABDOMINAL SERV PAIN FOUNDATION R9431 ABNORMAL 12-16-2016 [facility] ELECTROCARD SERV IOGRAM FOUNDATION D68.9 Coagulation 11-26-2016 defect, unspecified E83.39 Other 11-26-2016 disorders of phosphorus metabolism E83.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 11-26-2016 a E87.0 Hyperosmola 11-26-2016 lity and hypernatrem ia E87.4 Mixed 11-26-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 E87.5 Hyperkalemi 11-26-2016 a E87.70 Fluid 11-26-2016 overload, unspecified I45.81 Long QT 11-26-2016 syndrome I85.11 Secondary 11-26-2016 esophageal varices with bleeding J96.01 Acute 11-26-2016 respiratory failure with hypoxia J96.02 Acute 11-26-2016 respiratory failure with hypercapnia K31.89 Other 11-26-2016 diseases of stomach and duodenum R13.10 Dysphagia, 11-26-2016 unspecified R18.8 Other 11-26-2016 ascites R40.2110 Coma scale, 11-26-2016 eyes open, never, unspecified time R40.2113 Coma scale, 11-26-2016 eyes open, never, at hospital admission R40.2210 Coma scale, 11-26-2016 best verbal response, none, unspecified time R40.2213 Coma scale, 11-26-2016 best verbal response, none, at hospital admission R40.2310 Coma scale, 11-26-2016 best motor response, none, unspecified time R40.2353 Coma scale, 11-26-2016 best motor response, localizes pain, at hospital admission R49.0 Dysphonia 11-26-2016 R57.1 Hypovolemic 11-26-2016 shock Z68.41 Body mass 11-26-2016 index (BMI) 40.0-44.9, adult 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 I8501 ESOPHAGEAL 11-22-2016 [facility] VARICES [facility] WITH [facility]ATION BLEEDING R1310 DYSPHAGIA 11-22-2016 [facility] UNSPECIFIED SERV [facility] Z0189 ENCOUNTER 11-22-2016 [facility] OTHER SERV SPECIFIED [facility] SPECIAL EXAMINATION S K228 OTHER 11-21-2016 [facility] SPECIFIED SERV DISEASES OF FOUNDATION ESOPHAGUS R490 DYSPHONIA 11-21-2016 [facility] D95653H OTH FORGEN 11-20-2016 [facility] OBJ RESP SERV TRACT UNS FOUNDATION PART ASPHX INT ENC G9340 ENCEPHALOPA 11-18-2016 [facility] THY SERV UNSPECIFIED FOUNDATION I4581 LONG QT 11-18-2016 [facility] SYNDROME SERV [facility] I8500 ESOPHAGEAL 11-18-2016 [facility] VAR[facility] WITHOUT [facility] BLEEDING J90 PLEURAL 11-18-2016 [facility] EFFUSION [facility] NOT FOUNDATION ELSEWHERE CLASSIFIED J9601 ACUTE 11-18-2016 [facility] RESPIRATORY SERV FAILURE [facility] WITH HYPOXIA R918 OTHER 11-18-2016 [facility] NONSPECIFIC SERV ABNORMAL [facility] FINDING OF LUNG FIELD Z4682 ENCOUNTER 11-17-2016 [facility] FITTING & SERV ADJUST FOUNDATION NON-VASCULA R CATHETER I2119 ST 11-16-2016 [facility] ELEV[facility] MT INVOLV [facility]OUNDATION OTH CORONARY ART INF WALL R000 TACHYCARDIA 11-16-2016 [facility] UNSPECIFIED F[facility]ATION K2210 ULCER OF 11-14-2016 [facility] ESOPHAGUS SERV WITHOUT [facility]ATION BLEEDING E1169 TYPE 2 11-13-2016 S NURSE DIABETES PRACTITIONE MELLITUS R GR W/OTH SPEC COMPLICATIO N E8770 FLUID 11-13-2016 [facility] OVERLOAD SERV UNSPECIFIED FOUNDATION J9602 ACUTE 11-13-2016 [facility] RESPIRATORY SERV FAILURE FOUNDATION WITH HYPERCAPNIA J9811 ATELECTASIS 11-13-2016 [facility] D3337NO OTHER 11-13-2016 [facility] POSTPROCEDU SERV RAL SHOCK FOUNDATION SUBSEQUENT ENCOUNTER R0989 OTH SPEC SX 11-12-2016 [facility] & SIGNS SERV INVLV THE FOUNDATION CIRC & RESP SYS E806 OTHER 11-11-2016 [facility] DISORDERS SERV OF FOUNDATION BILIRUBIN METABOLISM E872 ACIDOSIS 11-11-2016 [facility] E876 HYPOKALEMIA 11-11-2016 [facility] I4891 UNSPECIFIED 11-11-2016 [facility] ATRIAL SERV FIBRILLATIO FOUNDATION N I959 HYPOTENSION 11-11-2016 S NURSE DIONICIOE UNSPECIFIED R GR J849 INTERSTITIA 11-11-2016 [facility] L PULMONARY SERV DISEASE FOUNDATION UNSPECIFIED J984 OTHER 11-11-2016 [place] [facility] DISORDERS [facility] OF LUNG FOUNDATION Z452 ENCOUNTER 11-09-2016 [facility] ADJUSTMENT& SERV MGMT FOUNDATION VASCULAR ACCESS DEVICE E875 HYPERKALEMI 11-08-2016 [facility] NURSE Javy CARLOS R GR I459 CONDUCTION 11-08-2016 [facility] DISORDER SERV UNSPECIFIED FOUNDATION K920 HEMATEMESIS 11-08-2016 [facility] K8020 CALCULUS GB 11-07-2016 [facility] W/O SERV CHOLECYSTIT FOUNDATION IS W/O OBSTRUCTION R188 OTHER 11-07-2016 [facility] ASCITES SERV FOUNDATION Z8719 PERSONAL 11-07-2016 [facility] HISTORY SERV OTHER FOUNDATION DISEASES DIGESTIVE SYSTEM R0602 SHORTNESS 11-06-2016 [place] [facility] R531 WEAKNESS 11-06-2016 [facility] M542 CERVICALGIA 10-21-2016 [facility] SERV [facility] M6281 MUSCLE 10-21-2016 [facility] WEAKNESS [facility] EMS R1030 LOWER 10-21-2016 [facility] ABDOMINAL SERV PAIN FOUNDATION UNSPECIFIED R05 COUGH 10-09-2016 [facility] J189 PNEUMONIA 09-22-2016 [place] UNSPECIFIED MEDICAL ORGANISM IMAGING ASS Z09 ENC F/U 09-22-2016 [place] EXAM AFTR MEDICAL CMPL TX OTH IMAGING ASS THAN MALIG NEOPLSM R509 FEVER 09-19-2016 [place] UNSPECIFIED [facility]ICAL IMAGING ASS H1133 CONJUNCTIVA 07-28-2016 [facility] L N EMERGENCY HEMORRHAGE PHYS BILATERAL R030 ELEVATED 07-28-2016 [facility] BLOOD-PRESS N EMERGENCY URE READING PHYS WITHOUT DX HTN R0789 OTHER CHEST 07-28-2016 [facility] PAIN N EMERGENCY PHYS M691WOK OTHER 07-28-2016 [facility] SPECIFIED RADIOLOGY INJURIES THORAX INITIAL ENC H1032 UNSPECIFIED 07-24-2016 [place] ACUTE FAMILY CONJUNCTIVI PHYSICIANS TIS LEFT [facility] EYE H1132 CONJUNCTIVA 07-22-2016 [facility] L N EMERGENCY HEMORRHAGE PHYS LEFT EYE S129WRM CONTUSION 07-22-2016 [facility] OF N EMERGENCY ABDOMINAL PHYS WALL INITIAL ENCOUNTER E8342 HYPOMAGNESE 07-01-2016 [facility] TONI N EMERGENCY PHYS G0430 ACUTE 07-01-2016 [facility] NECROTIZING N EMERGENCY PHYS HEMORRHAGIC ENCEPHALOPA THY UNS R1110 VOMITING 06-28-2016 [facility] UNSPECIFIED SERV FOUNDATION G4710 HYPERSOMNIA 06-11-2016 LINDA GALLO MD UNSPECIFIED CONSULTING SRV D490 NEOPLASM OF 06-07-2016 [facility] UNS SERV BEHAVIOR FOUNDATION DIGESTIVE SYSTEM K766 PORTAL 06-07-2016 [facility] HYPERTENSIO SERV N FOUNDATION R161 SPLENOMEGAL 06-07-2016 [facility] Y NOT SERV ELSEWHERE FOUNDATION CLASSIFIED G479 SLEEP 06-03-2016 [place] DISORDER [facility] R0683 SNORING 06-03-2016 [facility] R5383 OTHER 06-03-2016 [facility] F37293 PAIN IN 05-20-2016 [place] UNSPECIFIED FOOT & LIMB ANKLE CE R072 PRECORDIAL 05-16-2016 LINDA GALLO PAIN CONSULTING SRV G4733 OBSTRUCTIVE 05-02-2016 [place] SLEEP FAMILY APNEA ADULT PHYSICIANS PEDIATRIC [facility] [id number] TOX EFF OTH 04-08-2016 [facility] GASES N EMERGENCY FUMES & PHYS VAPORS ACC INITIAL ENC M545 LOW BACK 03-04-2016 [place] PAIN [facility] R112 NAUSEA WITH 03-04-2016 [facility] UNSPECIFIED R1033 PERIUMBILIC 02-28-2016 [facility] AL PAIN N EMERGENCY PHYS R5381 OTHER 01-29-2016 [facility] MALAISE N EMERGENCY PHYS R17 UNSPECIFIED 01-26-2016 [facility] L0390 CELLULITIS 01-08-2016 [facility] UNSPECIFIED [facility] PHYSICIANS [facility] M546 PAIN IN 11-10-2015 [facility] THORACIC N EMERGENCY SPINE PHYS B22472 MUSCLE 11-10-2015 [facility] SPASM OF N EMERGENCY BACK PHYS K6389 OTHER 09-05-2015 [facility] [place] SPECIFIED RADIOLOGY DISEASES OF INTESTINE B370 CANDIDAL 08-15-2015 [facility] STOMATITIS [facility] K222 ESOPHAGEAL 07-26-2015 [facility] OBSTRUCTION REGIONAL PHYSICIAN PRA K319 DISEASE OF 07-26-2015 [facility] DUODENUM GROUP PS UNSPECIFIED K449 DIAPHRAGMAT 07-26-2015 [facility] IC HERNIA ANESTHESIA W/O GROUP PS OBSTRUCTION OR GANGRENE 4660 ACUTE 06-07-2015 [facility] BRONCHITIS [facility] 42050 ABDOMINAL 06-07-2015 [facility] PAIN, FAMILY GENERALIZED PHYSICIANS [facility] 7242 LUMBAGO 06-01-2015 [facility] [place] [facility] 7862 COUGH 06-01-2015 [facility] [place] [facility] 17311 ABDOMINAL 06-01-2015 [facility] [place] PAIN RIGHT RADIOLOGY LOWER [facility] 40478 DIAB W/O 05-31-2015 [facility] COMP TYPE N EMERGENCY II/UNS NOT PHYS STATED [facility] 4019 UNSPECIFIED 05-31-2015 [place] ESSENTIAL [facility] HYPERTENSIO [facility]OSPITAL N 4549 ASYMPTOMATI 05-31-[facility] 5715 CIRRHOSIS 05-31-2015 [facility] WITHOUT HOSPITAL MENTION OF ALCOHOL 85113 OSTEOARTHRO 05-31-2015 [place] S UNSPEC COMM[facility]ITY WHETHER HOSPITAL GEN/LOC UNSPEC SITE 7213 LUMBOSACRAL 05-31-2015 [facility] N EMERGENCY SPONDYLOSIS PHYS WITHOUT MYELOPATHY 06788 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 [facility] 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 79751 OTHER 05-31-2015 [place] ASCITES [facility] V5867 LONG-TERM 05-31-2015 [facility] V5869 LONG-TERM 05-31-2015 [facility] (CURRENT) [facility] USE OF HOSPITAL OTHER MEDICATIONS 00757 NAUSEA WITH 05-26-2015 [place] VOMITING [facility] 03257 ABDOMINAL 05-26-2015 [facility] PAIN RIGHT N EMERGENCY UPPER PHYS [facility] 47056 ABDOMINAL 05-26-2015 [facility] PAIN, LEFT N EMERGENCY LOWER PHYS [facility] 76839 ABDOMINAL 05-26-2015 [facility] PAIN, N EMERGENCY EPIGASTRIC PHYS V145 PERSONAL 05-26-2015 [facility] HISTORY OF COMMUNITY ALLERGY TO HOSPITAL NARCOTIC AGENT 04679 ABDOMINAL 05-04-2015 [facility] UNSPECIFIED SITE 5718 OTHER 04-12-2015 [place] CHRONIC [facility] LIVER DISE[facility] 01915 UNSPEC 04-12-2015 [facility] IN[facility]UR[facility] LIVR N EMERGENCY W/O PHYS MENTION OPN WOUND IN CAV 78843 DIAB W/O 03-27-2015 [facility] MENTION FAMILY COMP TYPE PHYSICIANS II/UNS TYPE PLLC UNCNTRL 68264 DIVERTICULI 03-27-2015 [facility] TIS OF FAMILY COLON PHYSICIANS PLLC 5589 OTH&UNSPEC 03-20-2015 [facility] NONINFECTIO N PHYSICIAN US SERVI GASTROENTER ITIS&COLITI S 5723 PORTAL 03-16-2015 [facility] [place] HYPERTENSIO RADIOLOGY N 43343 ABDOMINAL 03-16-2015 [facility], N EMERGENCY PERIUMBILIC PHYS V146 PERSONAL 03-16-2015 [place] [facility] ANALGESIC AGENT 5289 OTHER&UNSPE 02-14-2015 [facility] CIFIED N EMERGENCY DISEASES PHYS THE ORAL SOFT TISSUES 5290 GLOSSITIS 02-14-2015 [facility] N EMERGENCY PHYS 2382 NEOPLASM OF 01-24-2015 [place] [facility] OF PHYSICIANS SKIN PLLC 4871 INFLUENZA 10-31-2014 [facility] WITH OTHER N PHYSICIAN RESPIRATORY SERVI MANIFESTATI ONS 40645 FEVER 10-31-2014 [facility] UNSPECIFIED N PHYSICIAN SERVI 486 PNEUMONIA, 10-30-2014 [facility] ORGANISM N EMERGENCY UNSPECIFIED PHYS 92410 OBESITY, 08-24-2014 [facility] NURSE UNSPECIFIED PRACTITIONE R GR V069 NEED PROPH 07-28-2014 [facility] W/UNSPEC [facility] DEPT COMB RESHMA VACCINE 78725 DISORDER OF 07-05-2014 [facility] [place] BONE AND RADIOLOGY CARTILAGE UNSPECIFIED 7948 NONSPECIFIC 07-05-2014 [facility] [place] ABNORMAL RADIOLOGY RESULTS LIVR FUNCTION STUDY 64991 DYSFUNCTION 06-29-2014 [facility]UBE 91525 SUBJECTIVE 06-29-2014 [place] TINNITUS PHYSICIAN PRACTICE L 34408 SENSORINEUR 06-29-2014 [facility] BILATERAL [id number] DIZZINESS 06-29-2014 [facility] L [id number] ESOPHAGEAL 06-27-2014 [facility] MENTION OF BLEEDING 3899 UNSPECIFIED 06-21-2014 [facility] L L03.90 CELLULITIS, UNSPECIFIED N28.9 DISORDER OF KIDNEY AND URETER, UNSPECIFIED Allergies, Adverse Reactions, Alerts Clinical Alert Notifications Alert Diabetes: no A1C in the last 6 months Diabetes: no eye exam in the last 365 days Diabetes: no influenza vaccine in the last 365 days Diabetes: no lipid panel in the last 365 days Member has >/= 10 ED visits within the past 365 days Member has >/= 3 hosp admit & >/= 1 ED visit in 365 days Medications Na ND Rx Da Fi Fi Am Da Di Ph RX Ph St me C No te ll ll ou ys ag ar # ys at rm s nt no ma ic us Or Da si cy ia de te s n re d WV 65 08 09 12 2 00 KE Ac OM 16 -2 -2 .0 00 NT ti ET 20 8- 9- 00 01 UC ve THOMPSON 52 20 20 05 [place] ZI 11 17 17 45 NE 0 86 CV S 25 PH AR MG MA CY TA BL LL ET C, DB A CV S PH AR MA CY #3 01 6 CA 00 09 09 60 30 00 KE Ac RV 37 -0 -2 .0 00 NT ti ED 83 1- 9- 00 01 UC ve IL 63 20 20 02 [place] OL 40 17 17 79 5 50 CV 25 S PH MG AR MA TA CY BL ET LL C, DB A CV S PH AR MA CY #3 01 6 ES 00 09 09 30 30 00 KE Ac OM 37 -0 -2 .0 00 NT ti EP 82 1- 9- 00 00 UC ve RA 35 20 20 98 [place] ZO 19 17 17 98 LE 3 26 CV S MA PH G AR DR [place] CY 40 LL MG C, CA DB P A CV S PH AR MA CY #3 01 6 NI 24 09 09 30 30 00 KE Ac FE 97 -0 -2 .0 05 NT ti DI 90 2- 9- 00 26 UC ve PI 01 20 20 29 [place] NE 00 17 17 71 1 72 CL ER IN IC 60 PH MG AR MA TA CY BL ET AM 68 09 09 30 30 00 KE Ac LO 18 -0 -2 .0 05 NT ti DI 00 1- 9- 00 26 UC ve PI 75 20 20 29 [place] NE 20 17 17 69 3 86 CL BE IN SY IC LA TE PH AR 10 MA CY MG TA B 69 08 09 4. 28 00 KE Ac T 45 -1 -0 00 00 NT ti D2 20 1- 1- 0 01 UC ve 15 20 20 05 [place] 1. 12 17 17 00 25 0 82 CV S MG PH AR (5 MA 0, CY 00 0 LL UN C, IT ) DB A CV S PH AR MA CY #3 01 6 HU 00 08 09 15 30 00 KE Ac MA 00 -0 -0 .0 00 NT ti LO 28 9- 1- 00 01 UC ve G 79 20 20 04 [place] MT 75 17 17 96 X 9 17 CV 75 S -2 PH 5 AR KW MA IK CY PE N LL C, DB A CV S PH AR MA CY #3 01 6 GA 69 08 09 18 30 00 KE Ac BA 09 -0 -0 0. 00 NT ti PE 70 2- 1- 00 01 UC ve NT 81 20 20 0 04 [place] IN 31 17 17 11 2 40 CV 10 S 0 PH MG AR MA CA CY PS UL LL E C, DB A CV S PH AR MA CY #3 01 6 BD 08 08 09 10 20 00 KE Ac 29 -0 -0 0. 00 NT ti UL 03 6- 1- 00 01 UC ve TR 20 20 20 0 04 [place] A- 10 17 17 14 FI 9 25 CV NE S PH PE AR N MA ND CY L 8M LL MX C, 31 G DB A CV S PH AR MA CY #3 01 6 FU 00 08 09 30 30 00 KE Ac RO 37 -0 -0 .0 00 NT ti SE 80 2- 1- 00 01 UC ve MT 21 20 20 03 [place] DE 61 17 17 15 0 39 CV 40 S PH MG AR MA TA CY BL ET LL C, DB A CV S PH AR MA CY #3 01 6 ES 00 08 09 30 30 00 KE Ac OM 37 -0 -0 .0 00 NT ti EP 82 1- 1- 00 00 UC ve RA 35 20 20 98 [place] ZO 19 17 17 98 LE 3 26 CV S MA PH G AR DR MA CY 40 LL MG C, CA DB P A CV S PH AR MA CY #3 01 6 AP 00 08 09 15 30 00 KE Ac ID 08 -0 -0 .0 00 NT ti RA 82 3- 1- 00 01 UC ve 50 20 20 03 [place] SO 20 17 17 30 LO [address] S AR PH AR 10 MA 0 CY UN IT LL S/ C, ML DB A CV S PH AR MA CY #3 01 6 CA 00 08 09 60 30 00 KE Ac RV 37 -0 -0 .0 00 NT ti ED 83 1- 1- 00 01 UC ve IL 63 20 20 02 [place] OL 40 17 17 79 5 50 CV 25 S PH MG AR MA TA CY BL ET LL C, DB A CV S PH AR MA CY #3 01 6 LA 00 07 08 40 [address] 60 -2 -2 00 05 NT ti UL 31 6- 5- .0 56 UC ve OS 37 20 20 00 06 KY E 85 17 17 04 10 9 44 CL IN GM IC /1 5 PH ML AR MA SO CY SHRAVAN TI ON ON 65 07 08 12 4 00 CV Ac DA 86 -2 -1 .0 00 S ti NS 20 3- 8- 00 00 PH ve ET 39 20 20 91 AR RO 01 17 17 48 MA N 0 68 CY OD T #6 4 33 MG 7 TA BL ET OX 68 07 08 16 2 00 CV Ac YC 46 -2 -1 .0 00 S ti OD 20 3- 8- 00 00 PH ve ON 20 20 20 91 AR E 40 17 17 48 MA HC 1 67 CY L 5 #6 MG 33 7 CA PS UL E XI 65 07 08 60 30 00 KE Ac FA 64 -1 -0 .0 00 NT ti XA 90 5- 4- 00 00 UC ve N 30 20 20 97 [place] 55 30 17 17 13 0 2 99 CV MG S PH TA AR BL MA ET CY LL C, DB A CV S PH AR MA CY #3 01 6 ME 68 07 08 60 30 00 KE Ac TF 38 -1 -0 .0 00 NT ti OR 20 5- 4- 00 01 UC ve MT 76 20 20 02 KY N 01 17 17 43 HC 0 90 CV L S 1, PH 00 AR 0 MA MG CY TA LL BL C, ET DB A CV S PH AR MA CY #3 01 6 69 07 08 4. 28 00 KE Ac T 45 -1 -0 00 00 NT ti D2 20 4- 4- 0 00 UC ve 15 20 20 99 [place] 1. 12 17 17 39 25 0 83 CV S MG PH AR (5 MA 0, CY 00 0 LL UN C, IT ) DB A CV S PH AR MA CY #3 01 6 CA 00 07 08 60 30 00 KE Ac RV 37 -0 -0 .0 00 NT ti ED 83 3- 4- 00 01 UC ve IL 63 20 20 02 [place] OL 40 17 17 79 5 50 CV 25 S PH MG AR MA TA CY BL ET LL C, DB A CV S PH AR MA CY #3 01 6 BD 08 07 08 10 20 00 KE Ac 29 -0 -0 0. 00 NT ti UL 03 7- 4- 00 01 UC ve TR 20 20 20 0 04 [place] A- 10 17 17 14 FI 9 25 CV NE S PH PE AR N MA ND CY L 8M LL MX C, 31 G DB A CV S PH AR MA CY #3 01 6 GA 69 07 08 18 30 00 KE Ac BA 09 -0 -0 0. 00 NT ti PE 70 5- 4- 00 01 UC ve NT 81 20 20 0 04 [place] IN 31 17 17 11 2 40 CV 10 S 0 PH MG AR MA CA CY PS UL LL E C, DB A CV S PH AR MA CY #3 01 6 TI 00 07 08 20 7 00 KE Ac ZA 37 -0 -0 .0 00 NT ti NI 80 5- 4- 00 00 UC ve DI 72 20 20 99 [place] NE 41 17 17 12 9 74 CV HC S L PH 4 AR MG MA CY TA BL LL ET C, DB A CV S PH AR MA CY #3 01 6 AP 00 07 08 15 30 00 KE Ac ID 08 -0 -0 .0 00 NT ti RA 82 5- 4- 00 01 UC ve 50 20 20 03 [place] SO 20 17 17 30 LO [address] S AR PH AR 10 MA 0 CY UN IT LL S/ C, ML DB A CV S PH AR MA CY #3 01 6 ES 00 07 08 30 30 00 KE Ac OM 37 -0 -0 .0 00 NT ti EP 82 3- 4- 00 00 UC ve RA 35 20 20 98 KY ZO 19 17 17 98 LE 3 26 CV S MA PH G AR DR MA CY 40 LL MG C, CA DB P A CV S PH AR JUANY CY #3 01 6 FU 00 06 07 30 30 00 KE Ac RO 37 -2 -2 .0 00 NT ti SE 80 9- 8- 00 01 UC ve MT 21 20 20 03 [place] DE 61 17 17 15 0 39 CV 40 S PH MG AR MA TA CY BL ET LL C, DB A CV S PH AR JUANY CY #3 01 6 BD 08 06 07 10 20 00 KE Ac 29 -2 -2 0. 00 NT ti UL 03 2- 1- 00 01 UC ve TR 20 20 20 0 03 [place] A- 11 17 17 83 FI 9 30 CV NE S PH PE AR N JUANY ND CY L 5M LL MX C, 31 G DB A CV S PH AR JUANY CY #3 01 6 ME 68 06 07 60 30 00 KE Ac TF 38 -1 -2 .0 00 NT ti OR 20 9- 1- 00 01 UC ve MT 76 20 20 02 KY N 01 17 17 43 HC 0 90 CV L S 1, PH 00 AR 0 MA MG CY TA LL BL C, ET DB A CV S PH AR JUANY CY #3 01 6 XI 65 06 07 60 30 00 KE Ac FA 64 -1 -0 .0 00 NT ti XA 90 8- 7- 00 00 UC ve N 30 20 20 97 [place] 55 30 17 17 13 0 2 99 CV MG S PH TA AR BL MA ET CY LL C, DB A CV S PH AR JUANY CY #3 01 6 ES 00 06 07 30 30 00 KE Ac OM 37 -0 -0 .0 00 NT ti EP 82 6- 7- 00 00 UC ve RA 35 20 20 98 [place] ZO 19 17 17 98 LE 3 26 CV S MA PH G AR DR JUANY CY 40 LL MG C, CA DB P A CV S PH AR JUANY CY #3 01 6 BD 08 06 07 10 20 00 KE Ac 29 -0 -0 0. 00 NT ti UL 03 6- 7- 00 01 UC ve TR 20 20 20 0 03 [place] A- 10 17 17 46 FI 9 44 CV NE S PH PE AR N JUANY ND CY L 8M LL MX C, 31 G DB A CV S PH AR JUANY CY #3 01 6 CA 00 06 07 60 30 00 KE Ac RV 37 -0 -0 .0 00 NT ti ED 83 6- 7- 00 01 UC ve IL 63 20 20 02 [place] OL 40 17 17 79 5 50 CV 25 S PH MG AR MA TA CY BL ET LL C, DB A CV S PH AR MA CY #3 01 6 69 06 07 4. 28 00 KE Ac T 45 -1 -0 00 00 NT ti D2 20 6- 7- 0 00 UC ve 15 20 20 99 [place] 1. 12 17 17 39 25 0 83 CV S MG PH AR (5 MA 0, CY 00 0 LL UN C, IT ) DB A CV S PH AR MA CY #3 01 6 TR 50 06 07 30 30 00 KE Ac AZ 11 -1 -0 .0 00 NT ti OD 10 8- 7- 00 01 UC ve ON 43 20 20 01 [place] E 30 17 17 67 50 1 54 CV S MG PH AR TA MA BL CY ET LL C, DB A CV S PH AR MA CY #3 01 6 AP 00 06 06 15 30 00 KE Ac ID 08 -0 -3 .0 00 NT ti RA 82 1- 0- 00 01 UC ve 50 20 20 03 [place] SO 20 17 17 30 LO [address] S AR PH AR 10 MA 0 CY UN IT LL S/ C, ML DB A CV S PH AR MA CY #3 01 6 GA 69 05 06 18 30 00 KE Ac BA 09 -2 -2 0. 00 NT ti PE 70 4- 3- 00 01 UC ve NT 81 20 20 0 03 [place] IN 31 17 17 15 2 38 CV 10 S 0 PH MG AR MA CA CY PS UL LL E C, DB A CV S PH AR MA CY #3 01 6 HU 00 05 06 30 30 00 KE Ac MA 00 -0 -2 .0 00 NT ti LO 28 4- 3- 00 00 UC ve G 79 20 20 97 [place] MT 75 17 17 10 X 9 96 CV 75 S -2 PH 5 AR KW MA IK CY PE N LL C, DB A CV S PH AR MA CY #3 01 6 FU 00 05 06 30 30 00 KE Ac RO 37 -2 -2 .0 00 NT ti SE 80 4- 3- 00 01 UC ve MT 21 20 20 03 [place] DE 61 17 17 15 0 39 CV 40 S PH MG AR MA TA CY BL ET LL C, DB A CV S PH AR MA CY #3 01 6 TI 00 05 06 20 7 00 KE Ac ZA 37 -2 -2 .0 00 NT ti NI 80 3- 3- 00 00 UC ve DI 72 20 20 99 [place] NE 41 17 17 12 9 74 CV HC S L PH 4 AR MG MA CY TA BL LL ET C, DB A CV S PH AR MA CY #3 01 6 ME 68 05 06 60 30 00 KE Ac TF 38 -2 -2 .0 00 NT ti OR 20 3- 3- 00 01 UC ve MT 76 20 20 02 [place] N 01 17 17 43 HC 0 90 CV L S 1, PH 00 AR 0 MA MG CY TA LL BL C, ET DB A CV S PH AR MA CY #3 01 6 MT 57 05 06 30 30 00 KE Ac RT 66 -1 -0 .0 00 NT ti AZ 40 9- 9- 00 01 UC ve AP 51 20 20 00 [place] IN 08 17 17 11 E 3 64 CV 7. S 5 PH MG AR MA TA CY BL ET LL C, DB A CV S PH AR MA CY #3 01 6 PE 10 05 06 40 1 00 KE Ac G 57 -1 -0 00 00 NT ti 33 20 7- 9- .0 01 UC ve 50 30 20 20 00 02 [place] -E 20 17 17 [address] S RO PH LY AR TE MA CY SO SHRAVAN LL TI C, ON DB A CV S PH AR MA CY #3 01 6 XI 65 05 06 60 30 00 KE Ac FA 64 -2 -0 .0 00 NT ti XA 90 0- 9- 00 00 UC ve N 30 20 20 97 [place] 55 30 17 17 13 0 2 99 CV MG S PH TA AR BL MA ET CY LL C, DB A CV S PH AR MA CY #3 01 6 69 05 06 4. 28 00 KE Ac T 45 -1 -0 00 00 NT ti D2 20 8- 9- 0 00 UC ve 15 20 20 99 [place] 1. 12 17 17 39 25 0 83 CV S MG PH AR (5 MA 0, CY 00 0 LL UN C, IT ) DB A CV S PH AR MA CY #3 01 6 TR 50 05 06 30 30 00 KE Ac AZ 11 -1 -0 .0 00 NT ti OD 10 9- 9- 00 01 UC ve ON 43 20 20 01 KY E 30 17 17 67 50 1 54 CV S MG PH AR TA MA BL CY ET LL C, DB A CV S PH AR MA CY #3 01 6 ES 00 05 06 30 30 00 KE Ac OM 37 -0 -0 .0 00 NT ti EP 82 8- 2- 00 00 UC ve RA 35 20 20 98 KY ZO 19 17 17 98 LE 3 26 CV S MA PH G AR DR MA CY 40 LL MG C, CA DB P A CV S PH AR MA CY #3 01 6 GA 69 05 06 90 30 00 KE Ac BA 09 -1 -0 .0 00 NT ti PE 70 1- 2- 00 01 UC ve NT 81 20 20 02 [place] IN 31 17 17 81 2 93 CV 10 S 0 PH MG AR MA CA CY PS UL LL E C, DB A CV S PH AR MA CY #3 01 6 CA 00 05 06 60 30 00 KE Ac RV 37 -1 -0 .0 00 NT ti ED 83 0- 2- 00 01 UC ve IL 63 20 20 02 [place] OL 40 17 17 79 5 50 CV 25 S PH MG AR MA TA CY BL ET LL C, DB A CV S PH AR MA CY #3 01 6 LA 50 05 06 27 [address] 38 -0 -0 00 00 NT ti UL 30 1- 2- .0 01 UC ve OS 77 20 20 00 02 [place] E 91 17 17 53 10 6 48 CV S GM PH /1 AR 5 MA ML CY SO LL SHRAVAN C, TI ON DB A CV S PH AR MA CY #3 01 6 ME 65 05 06 60 30 00 KE Ac TA 16 -0 -0 .0 00 NT ti XA 20 5- 2- 00 01 UC ve LO 55 20 20 02 [place] NE 31 17 17 55 0 77 CV 80 S 0 PH MG AR MA TA CY BL ET LL C, DB A CV S PH AR MA CY #3 01 6 XI 65 04 05 60 30 00 KE Ac FA 64 -2 -1 .0 00 NT ti XA 90 4- 9- 00 00 UC ve N 30 20 20 97 [place] 55 30 17 17 13 0 2 99 CV MG S PH TA AR BL MA ET CY LL C, DB A CV S PH AR MA CY #3 01 6 TI 00 04 05 20 7 00 KE Ac ZA 37 -2 -1 .0 00 NT ti NI 80 6- 9- 00 00 UC ve DI 72 20 20 99 [place] NE 41 17 17 12 9 74 CV HC S L PH 4 AR MG MA CY TA BL LL ET C, DB A CV S PH AR MA CY #3 01 6 TR 50 04 05 30 30 00 KE Ac AZ 11 -2 -1 .0 00 NT ti OD 10 3- 2- 00 01 UC ve ON 43 20 20 01 [place] E 30 17 17 67 50 1 54 CV S MG PH AR TA MA BL CY ET LL C, DB A CV S PH AR MA CY #3 01 6 DI 16 04 05 10 10 00 KE Ac CL 57 -2 -1 .0 00 NT ti OF 10 1- 2- 00 01 UC ve EN 20 20 20 02 KY AC 10 17 17 30 6 07 CV SO S D PH EC AR MA 75 CY MG LL C, TA B DB A CV S PH AR MA CY #3 01 6 MT 57 04 05 30 30 00 KE Ac RT 66 -2 -1 .0 00 NT ti AZ 40 3- 2- 00 01 UC ve AP 51 20 20 00 [place] IN 08 17 17 11 E 3 64 CV 7. S 5 PH MG AR MA TA CY BL ET LL C, DB A CV S PH AR MA CY #3 01 6 ME 68 04 05 60 30 00 KE Ac TF 38 -2 -1 .0 00 NT ti OR 20 3- 2- 00 00 UC ve MT 76 20 20 99 [place] N 01 17 17 49 HC 0 47 CV L S 1, PH 00 AR 0 MA MG CY TA LL BL C, ET DB A CV S PH AR MA CY #3 01 6 69 04 05 4. 28 00 KE Ac T 45 -2 -1 00 00 NT ti D2 20 1- 2- 0 00 UC ve 15 20 20 99 [place] 1. 12 17 17 39 25 0 83 CV S MG PH AR (5 MA 0, CY 00 0 LL UN C, IT ) DB A CV S PH AR MA CY #3 01 6 ES 00 04 05 30 30 00 KE Ac OM 37 -1 -0 .0 00 NT ti EP 82 2- 5- 00 00 UC ve RA 35 20 20 98 KY ZO 19 17 17 98 LE 3 26 CV S MA PH G AR DR MA CY 40 LL MG C, CA DB P A CV S PH AR MA CY #3 01 6 KILLIAN 53 04 05 20 10 00 KE Ac LF 74 -1 -0 .0 05 NT ti AM 60 1- 5- 00 26 UC ve ET 27 20 20 25 [place] HO 20 17 17 82 XA 1 30 CL ZO IN LE IC -T MP PH AR DS MA CY TA BL ET HY 00 04 04 30 [address] 55 -0 -2 .0 00 NT ti OX 50 4- 8- 00 01 UC ve YZ 30 20 20 00 [place] IN 20 17 17 28 E 2 83 CV PA S M PH 50 AR MA MG CY CA LL P C, DB A CV S PH AR MA CY #3 01 6 TI 00 04 04 20 7 00 KE Ac ZA 37 -0 -2 .0 00 NT ti NI 80 1- 1- 00 00 UC ve DI 72 20 20 99 [place] NE 41 17 17 12 9 74 CV HC S L PH 4 AR MG MA CY TA BL LL ET C, DB A CV S PH AR MA CY #3 01 6 TR 50 03 04 30 30 00 KE Ac AZ 11 -2 -2 .0 00 NT ti OD 10 8- 1- 00 01 UC ve ON 43 20 20 01 [place] E 30 17 17 67 50 1 54 CV S MG PH AR TA MA BL CY ET LL C, DB A CV S PH AR MA CY #3 01 6 HU 00 04 04 30 30 00 KE Ac MA 00 -0 -2 .0 00 NT ti LO 28 1- 1- 00 00 UC ve G 79 20 20 97 [place] MT 75 17 17 10 X 9 96 CV 75 S -2 PH 5 AR KW MA IK CY PE N LL C, DB A CV S PH AR MA CY #3 01 6 69 03 04 4. 28 00 KE Ac T 45 -2 -1 00 00 NT ti D2 20 6- 4- 0 00 UC ve 15 20 20 99 [place] 1. 12 17 17 39 25 0 83 CV S MG PH AR (5 MA 0, CY 00 0 LL UN C, IT ) DB A CV S PH AR MA CY #3 01 6 XI 65 03 04 60 30 00 KE Ac FA 64 -2 -1 .0 00 NT ti XA 90 2- 4- 00 00 UC ve N 30 20 20 97 [place] 55 30 17 17 13 0 2 99 CV MG S PH TA AR BL MA ET CY LL C, DB A CV S PH AR MA CY #3 01 6 MT 57 03 04 30 30 00 KE Ac RT 66 -2 -1 .0 00 NT ti AZ 40 6- 4- 00 01 UC ve AP 51 20 20 00 [place] IN 08 17 17 11 E 3 64 CV 7. S 5 PH MG AR MA TA CY BL ET LL C, DB A CV S PH AR MA CY #3 01 6 ME 68 03 04 60 30 00 KE Ac TF 38 -1 -0 .0 00 NT ti OR 20 7- 7- 00 00 UC ve MT 76 20 20 99 [place] N 01 17 17 49 HC 0 47 CV L S 1, PH 00 AR 0 MA MG CY TA LL BL C, ET DB A CV S PH AR MA CY #3 01 6 ES 00 03 04 60 30 00 KE Ac OM 09 -1 -0 .0 05 NT ti EP 36 7- 7- 00 26 UC ve RA 45 20 20 25 KY ZO 15 17 17 17 LE 6 09 CL IN MA IC G DR PH AR 40 MA CY MG CA P FU 00 03 04 30 30 00 KE Ac RO 05 -1 -0 .0 05 NT ti SE 44 7- 7- 00 26 UC ve MT 29 20 20 25 [place] DE 93 17 17 17 1 12 CL 40 IN IC MG PH TA AR BL MA ET CY SP 00 03 04 30 30 00 KE Ac IR 60 -1 -0 .0 05 NT ti ON 35 7- 7- 00 26 UC ve OL 76 20 20 25 KY AC 42 17 17 17 TO 1 11 CL NE IN IC 50 PH MG AR MA TA CY BL ET HY 00 02 03 30 [address] 55 -0 -1 .0 00 NT ti OX 50 7- 0- 00 01 UC ve YZ 30 20 20 00 [place] IN 20 17 17 28 E 2 83 CV PA S M PH 50 AR MA MG CY CA LL P C, DB A CV S PH AR MA CY #3 01 6 FU 00 02 03 30 30 00 KE Ac RO 37 -1 -1 .0 00 NT ti SE 80 1- 0- 00 00 UC ve MT 20 20 20 97 [place] DE 81 17 17 66 0 62 CV 20 S PH MG AR MA TA CY BL ET LL C, DB A CV S PH AR MA CY #3 01 6 SP 53 02 03 30 30 00 KE Ac IR 74 -1 -1 .0 00 NT ti ON 60 1- 0- 00 00 UC ve OL 51 20 20 97 [place] AC 40 17 17 66 TO 1 63 CV NE S PH 50 AR MA MG CY TA LL BL C, ET DB A CV S PH AR MA CY #3 01 6 ES 00 02 02 30 30 00 KE Ac OM 37 -0 -2 .0 00 NT ti EP 82 1- 4- 00 00 UC ve RA 35 20 20 98 [place] ZO 19 17 17 98 LE 3 26 CV S MA PH G AR DR MA CY 40 LL MG C, CA DB P A CV S PH AR MA CY #3 01 6 ME 00 02 02 45 15 00 KE Ac TO 09 0 -2 .0 00 NT ti CL 32 1- 4- 00 01 UC ve OP 20 20 20 00 [place] RA 30 17 17 11 MT 5 65 CV DE S PH 10 AR MA MG CY TA LL BL C, ET DB A CV S PH AR MA CY #3 01 6 MT 57 02 02 30 30 00 KE Ac RT 66 -0 -2 .0 00 NT ti AZ 40 1- 4- 00 01 UC ve AP 51 20 20 00 [place] IN 08 17 17 11 E 3 64 CV 7. S 5 PH MG AR MA TA CY BL ET LL C, DB A CV S PH AR MA CY #3 01 6 XI 65 01 02 60 30 00 KE Ac FA 64 -2 -1 .0 00 NT ti XA 90 3- 7- 00 00 UC ve N 30 20 20 97 [place] 55 30 17 17 13 0 2 99 CV MG S PH TA AR BL MA ET CY LL C, DB A CV S PH AR MA CY #3 01 6 SP 53 01 02 30 30 00 KE Ac IR 74 -1 -1 .0 00 NT ti ON 60 1- 0- 00 00 UC ve OL 51 20 20 97 [place] AC 40 17 17 66 TO 1 63 CV NE S PH 50 AR MA MG CY TA LL BL C, ET DB A CV S PH AR MA CY #3 01 6 FU 00 01 02 30 30 00 KE Ac RO 37 -1 -1 .0 00 NT ti SE 80 1- 0- 00 00 UC ve MT 20 20 20 97 [place] DE 81 17 17 66 0 62 CV 20 S PH MG AR MA TA CY BL ET LL C, DB A CV S PH AR MA CY #3 01 6 ME 68 01 02 60 30 00 KE Ac TF 38 -1 -1 .0 00 NT ti OR 20 0- 0- 00 00 UC ve MT 76 20 20 99 [place] N 01 17 17 49 HC 0 47 CV L S 1, PH 00 AR 0 MA MG CY TA LL BL C, ET DB A CV S PH AR MA CY #3 01 6 LE 65 01 02 5. 5 00 KE Ac VO 86 -1 -1 00 00 NT ti FL 20 5- 0- 0 00 UC ve OX 53 20 20 99 [place] AC 75 17 17 63 IN 0 91 CV S 50 PH 0 AR MG MA CY TA BL LL ET C, DB A CV S PH AR MA CY #3 01 6 69 01 02 4. 28 00 KE Ac T 45 -0 -0 00 00 NT ti D2 20 6- 3- 0 00 UC ve 15 20 20 99 [place] 1. 12 17 17 39 25 0 83 CV S MG PH AR (5 MA 0, CY 00 0 LL UN C, IT ) DB A CV S PH AR MA CY #3 01 6 TI 00 12 01 20 7 00 KE Ac ZA 37 -2 -2 .0 00 NT ti NI 80 7- 0- 00 00 UC ve DI 72 20 20 99 [place] NE 41 16 17 12 9 74 CV HC S L PH 4 AR MG MA CY TA BL LL ET C, DB A CV S PH AR MA CY #3 01 6 XI 65 12 01 60 30 00 KE Ac FA 64 -2 -2 .0 00 NT ti XA 90 6- 0- 00 00 UC ve N 30 20 20 97 [place] 55 30 16 17 13 0 2 99 CV MG S PH TA AR BL MA ET CY LL C, DB A CV S PH AR MA CY #3 01 6 HU 00 12 01 30 30 00 KE Ac MA 00 -2 -1 .0 00 NT ti LO 28 1- 3- 00 00 UC ve G 79 20 20 97 [place] MT 75 16 17 10 X 9 96 CV 75 S -2 PH 5 AR KW MA IK CY PE N LL C, DB A CV S PH AR MA CY #3 01 6 ES 00 12 01 30 30 00 KE Ac OM 37 -2 -1 .0 00 NT ti EP 82 1- 3- 00 00 UC ve RA 35 20 20 98 [place] ZO 19 16 17 98 LE 3 26 CV S MA PH G AR DR MA CY 40 LL MG C, CA DB P A CV S PH AR MA CY #3 01 6 LE 65 12 01 7. 7 00 KE Ac VO 86 -1 -1 00 00 NT ti FL 20 9- 3- 0 00 UC ve OX 53 20 20 98 [place] AC 75 16 17 92 IN 0 02 CV S 50 PH 0 AR MG MA CY TA BL LL ET C, DB A CV S PH AR MA CY #3 01 6 TI 00 12 01 20 7 00 KE Ac ZA 37 -1 -0 .0 00 NT ti NI 80 2- 9- 00 00 UC ve DI 72 20 20 96 [place] NE 41 16 17 05 9 40 CV HC S L PH 4 AR MG MA CY TA BL LL ET C, DB A CV S PH AR MA CY #3 01 6 Immunization Name Date Rout CVX Reac Dose Comm Prov Is Faci e tion ent ider Refu lity Give sed n HEPA 11-2 52 [facility] No [facility] 0-20 O O VACC 14 DIST DIST INE RICT RICT ADUL T [facility] DOSE FOR DEPT DEPT RESHMA RESHMA INTR AMUS CULA R USE HEPB 11-2 43 [facility] No [facility] 0-20 O O VACC 14 DIST DIST INE RICT RICT ADUL T 3 [facility] DOSE DEPT DEPT SCHE RESHMA RESHMA DULE FOR IM USE Vital Signs 11-08-2016 05:05 Name Value Interpretat Reference Comment ion Range Glucose 456 mg/dL 74-99 Bld-mCnc 11-08-2016 02:53 Name Value Interpretat Reference Comment ion Range Glucose 419 mg/dL 74-99 Bld-mCnc Results Labs Lab Lab Date Result Refere Interp Status Commen Order Detail nces retati t Range on Hgb A1c MFr Bld (05-08-2017 05:53) Hgb A1c 6.7 % 4.7-6.0 complet MFr 017 ed Bld 05:53 Path Rev Bld -Imp (05-08-2017 02:25) Path [id number] complet Rev Bld 017 04 ed -Imp 02:25 refer to patholo gy laborat ory SCT COPATH COPATH report to follow L Bacteria Ur Cult (05-08-2017 01:09) Bacteri [id number] complet a XXX 017 06 No ed Anaerob 01:09 growth e+Aerob (qualif e Cult ier value) SCT NG1 NO GROWTH DAY 1. L CC XXX NOTAP complet VC-aCnc 017 NOT ed 01:09 APPLICA BLE L Bacteria XXX Anaerobe+Aerobe Cult (05-07-2017 23:23) Bacteri [id number] complet a XXX 017 06 No ed Anaerob 23:23 growth e+Aerob (qualif e Cult ier value) SCT NGB6 NO GROWTH DAY 5. L Phosphate SerPl-mCnc (05-07-2017 23:23) Phospha 3.8 2.5-4.5 complet te 017 mg/dL ed SerPl-m 23:23 Cnc Magnesium SerPl-mCnc (05-07-2017 23:23) Magnesi 08-30-2 2.2 1.9-2.4 complet um 017 mg/dL ed SerPl-m 23:23 Cnc Lactate Bld-sCnc (05-07-2017 23:23) Lactate 2.2 complet 017 mmol/L ed Bld-sCn 23:23 c Hgb A1c MFr Bld (05-07-2017 23:23) Hgb A1c 6.8 % 4.7-6.0 complet MFr 017 ed Bld 23:23 Hgb A1c MFr Bld (04-29-2017 07:19) Hgb A1c 6.0 % 4.7-6.0 complet MFr 017 ed Bld 07:19 Lactate Bld-sCnc (04-02-2017 05:54) Lactate 1.9 complet 017 mmol/L ed Bld-sCn 05:54 c Magnesium SerPl-mCnc (04-02-2017 05:54) Magnesi 1.7 1.9-2.4 complet um 017 mg/dL ed SerPl-m 05:54 Cnc Magnesium SerPl-mCnc (04-01-2017 04:12) Magnesi 1.6 1.9-2.4 complet um 017 mg/dL ed SerPl-m 04:12 Cnc Lactate Bld-sCnc (04-01-2017 04:12) Lactate 2.8 complet 017 mmol/L ed Bld-sCn 04:12 c Lactate Bld-sCnc (03-31-2017 23:10) Lactate 4.1 complet 017 mmol/L ed Bld-sCn 23:10 c Lipase SerPl-cCnc (03-31-2017 20:02) Lipase 37 U/L 19-63 complet SerPl-c 017 ed Cnc 20:02 Lactate Bld-sCnc (03-31-2017 20:02) Lactate 8.1 complet 017 mmol/L ed Bld-sCn 20:02 c Lipase SerPl-cCnc (03-28-2017 17:12) Lipase 45 U/L -63 complet SerPl-c 017 ed Cnc 17:12 Phosphate SerPl-mCnc (01-14-2017 02:39) Phospha 3.9 2.5-4.5 complet te 017 mg/dL ed SerPl-m 02:39 Cnc Magnesium SerPl-mCnc (01-14-2017 02:39) Magnesi 1.8 1.9-2.4 complet um 017 mg/dL ed SerPl-m 02:39 Cnc MDRO Wnd (01-12-2017 03:50) Bacteri [id number] complet a XXX 017 00 not ed Anaerob 03:50 isolate e+Aerob d e Cult (qualif ier value) SCT NMDR NO MULTI DRUG RESISTA NT ORGANIS MS ISOLATE D L CC XXX NOTAP complet VC-aCnc 017 NOT ed 03:50 APPLICA BLE L Lipase SerPl-cCnc (01-12-2017 00:13) Lipase 56 U/L 19-63 complet SerPl-c 017 ed Cnc 00:13 Lactate Bld-sCnc (01-12-2017 00:13) Lactate 4.2 complet 017 mmol/L ed Bld-sCn 00:13 c Osmolality SerPl (12-17-2016 05:18) Osmolal 300 275-295 complet ity 017 mOsm/kg ed SerPl 05:18 Bacteria Ur Cult (12-16-2016 23:56) Bacteri [id number] complet a XXX 017 1 ed Anaerob 23:56 Staphyl e+Aerob ococcus e Cult epiderm idis (organi sm) SCT SEPI STAPHYL OCOCCUS EPIDERM IDIS L CC XXX NOTAP complet VC-aCnc 017 NOT ed 23:56 APPLICA BLE L Phosphate SerPl-mCnc (11-20-2016 03:42) Phospha 2.8 2.5-4.5 complet te 017 mg/dL ed SerPl-m 03:42 Cnc Magnesium SerPl-mCnc (11-20-2016 03:42) Magnesi 1.5 1.9-2.4 complet um 017 mg/dL ed SerPl-m 03:42 Cnc MDRO Wnd (11-18-2016 10:50) CC XXX NOTAP complet VC-aCnc 017 NOT ed 10:50 APPLICA BLE L Bacteri [id number] complet a XXX 017 06 No ed Anaerob 10:50 growth e+Aerob (qualif e Cult ier value) SCT NG1 NO GROWTH DAY 1. L Phosphate SerPl-mCnc (11-18-2016 04:00) Phospha 3.3 2.5-4.5 complet te 017 mg/dL ed SerPl-m 04:00 Cnc Magnesium SerPl-mCnc (11-18-2016 04:00) Magnesi 1.9 1.9-2.4 complet um 017 mg/dL ed SerPl-m 04:00 Cnc Ca-I SerPl ISE-sCnc (11-18-2016 04:00) Ca-I 4.7 4.6-5.1 complet SerPl 017 mg/dL ed ISE-sCn 04:00 c Phosphate SerPl-mCnc (11-17-2016 03:15) Phospha 4.0 2.5-4.5 complet te 017 mg/dL ed SerPl-m 03:15 Cnc Magnesium SerPl-mCnc (11-17-2016 03:15) Magnesi 1.8 1.9-2.4 complet um 017 mg/dL ed SerPl-m 03:15 Cnc Phosphate SerPl-mCnc (11-16-2016 16:06) Phospha 3.6 2.5-4.5 complet te 017 mg/dL ed SerPl-m 16:06 Cnc Magnesium SerPl-mCnc (11-16-2016 16:06) Magnesi 1.8 1.9-2.4 complet um 017 mg/dL ed SerPl-m 16:06 Cnc Ca-I SerPl ISE-sCnc (11-16-2016 16:06) Ca-I 4.6 4.6-5.1 complet SerPl 017 mg/dL ed ISE-sCn 16:06 c Phosphate SerPl-mCnc (11-16-2016 02:24) Phospha 2.4 2.5-4.5 complet te 017 mg/dL ed SerPl-m 02:24 Cnc Magnesium SerPl-mCnc (11-16-2016 02:24) Magnesi 1.8 1.9-2.4 complet um 017 mg/dL ed SerPl-m 02:24 Cnc Phosphate SerPl-mCnc (11-14-2016 02:11) Phospha 3.2 2.5-4.5 complet te 017 mg/dL ed SerPl-m 02:11 Cnc Magnesium SerPl-mCnc (11-14-2016 02:11) Magnesi 1.8 1.9-2.4 complet um 017 mg/dL ed SerPl-m 02:11 Cnc Phosphate SerPl-mCnc (11-13-2016 02:12) Phospha 3.1 2.5-4.5 complet te 017 mg/dL ed SerPl-m 02:12 Cnc Magnesium SerPl-mCnc (11-13-2016 02:12) Magnesi 1.7 1.9-2.4 complet um 017 mg/dL ed SerPl-m 02:12 Cnc Phosphate SerPl-mCnc (11-12-2016 10:15) Phospha 3.3 2.5-4.5 complet te 017 mg/dL ed SerPl-m 10:15 Cnc Magnesium SerPl-mCnc (11-12-2016 10:15) Magnesi 1.9 1.9-2.4 complet um 017 mg/dL ed SerPl-m 10:15 Cnc Ca-I SerPl ISE-sCnc (11-12-2016 02:09) Ca-I 4.2 4.6-5.1 complet SerPl 017 mg/dL ed ISE-sCn 02:09 c Lactate Bld-sCnc (11-12-2016 02:09) Lactate 2.3 complet 017 mmol/L ed Bld-sCn 02:09 c Phosphate SerPl-mCnc (11-12-2016 02:09) Phospha 3.7 2.5-4.5 complet te 017 mg/dL ed SerPl-m 02:09 Cnc Magnesium SerPl-mCnc (11-12-2016 02:09) Magnesi 1.5 1.9-2.4 complet um 017 mg/dL ed SerPl-m 02:09 Cnc MDRO Wnd (11-11-2016 17:16) Bacteri [id number] complet a XXX 017 00 not ed Anaerob 17:16 isolate e+Aerob d e Cult (qualif ier value) SCT NMDR NO MULTI DRUG RESISTA NT ORGANIS MS ISOLATE D L CC XXX NOTAP complet VC-aCnc 017 NOT ed 17:16 APPLICA BLE L Lactate Bld-sCnc (11-11-2016 15:50) Lactate 3.5 complet 017 mmol/L ed Bld-sCn 15:50 c Ca-I SerPl ISE-sCnc (11-11-2016 11:21) Ca-I 4.2 4.6-5.1 complet SerPl 017 mg/dL ed ISE-sCn 11:21 c Bilirub Direct SerPl-mCnc (11-11-2016 02:16) Bilirub 2.9 0.0-0.2 complet Direct 017 mg/dL ed 02:16 SerPl-m Cnc Lactate Bld-sCnc (11-10-2016 10:28) Lactate 1.5 complet 017 mmol/L ed Bld-sCn 10:28 c Lactate Bld-sCnc (11-10-2016 05:43) Lactate 1.7 complet 017 mmol/L ed Bld-sCn 05:43 c Magnesium SerPl-mCnc (11-10-2016 02:04) Magnesi 1.6 1.9-2.4 complet um 017 mg/dL ed SerPl-m 02:04 Cnc Lactate Bld-sCnc (11-10-2016 02:04) Lactate 1.6 complet 017 mmol/L ed Bld-sCn 02:04 c Phosphate SerPl-mCnc (11-10-2016 02:04) Phospha 2.6 2.5-4.5 complet te 017 mg/dL ed SerPl-m 02:04 Cnc Lactate Bld-sCnc (11-10-2016 01:41) Lactate TCON complet 017 Multipl ed Bld-sCn 01:41 e SCM c orders. Tests consoli dated. L mmol/L Lactate Bld-sCnc (11-09-2016 21:24) Lactate 03-04-2 1.8 complet 017 mmol/L ed Bld-sCn 21:24 c Lactate Bld-sCnc (11-09-2016 18:05) Lactate -04-2 2.1 complet 017 mmol/L ed Bld-sCn 18:05 c Lactate Bld-sCnc (11-09-2016 13:59) Lactate -04-2 2.2 complet 017 mmol/L ed Bld-sCn 13:59 c Lactate Bld-sCnc (11-09-2016 10:36) Lactate -04-2 2.3 complet 017 mmol/L ed Bld-sCn 10:36 c Lactate Bld-sCnc (11-09-2016 10:36) Lactate 11-09- TCON complet 017 Multipl ed Bld-sCn 10:36 e SCM c orders. Tests consoli dated. L mmol/L Lactate Bld-sCnc (11-09-2016 06:35) Lactate -04-2 2.6 complet 017 mmol/L ed Bld-sCn 06:35 c Lactate Bld-sCnc (11-09-2016 01:58) Lactate 03-04-2 2.4 complet 017 mmol/L ed Bld-sCn 01:58 c Lactate Bld-sCnc (11-08-2016 22:53) Lactate 11-08-2 4.0 complet 017 mmol/L ed Bld-sCn 22:53 c Lactate Bld-sCnc (11-08-2016 18:52) Lactate 11-08-2 6.1 complet 017 mmol/L ed Bld-sCn 18:52 c Lactate Bld-sCnc (11-08-2016 14:07) Lactate 8.2 complet 017 mmol/L ed Bld-sCn 14:07 c Ketones SerPl-mCnc (11-08-2016 14:07) Ketones NEG NEGATIV complet 017 NEGATIV E ed SerPl-m 14:07 E L Cnc MDRO Wnd (11-08-2016 13:15) Bacteri [id number] complet a XXX 017 00 not ed Anaerob 13:15 isolate e+Aerob d e Cult (qualif ier value) SCT NMDR NO MULTI DRUG RESISTA NT ORGANIS MS ISOLATE D L CC XXX NOTAP complet VC-aCnc 017 NOT ed 13:15 APPLICA BLE L CK SerPl-cCnc (11-08-2016 12:21) CK 113 U/L 49-320 complet SerPl-c 017 ed Cnc 12:21 Phosphate SerPl-mCnc (11-08-2016 09:20) Phospha 4.6 2.5-4.5 complet te 017 mg/dL ed SerPl-m 09:20 Cnc Magnesium SerPl-mCnc (11-08-2016 09:20) Magnesi 1.9 1.9-2.4 complet um 017 mg/dL ed SerPl-m 09:20 Cnc Lactate Bld-sCnc (11-08-2016 07:33) Lactate 9.5 complet 017 mmol/L ed Bld-sCn 07:33 c Ca-I SerPl ISE-sCnc (11-08-2016 07:33) Ca-I 4.6 4.6-5.1 complet SerPl 017 mg/dL ed ISE-sCn 07:33 c Bacteria Ur Cult (11-08-2016 05:05) Bacteri [id number] complet a XXX 017 06 No ed Anaerob 05:05 growth e+Aerob (qualif e Cult ier value) SCT NG1 NO GROWTH DAY 1. L CC XXX NOTAP complet VC-aCnc 017 NOT ed 05:05 APPLICA BLE L Bilirub SerPl-mCnc (11-08-2016 05:05) Bilirub 6.9 0.2-1.1 complet 017 mg/dL ed SerPl-m 05:05 Cnc Phosphate SerPl-mCnc (11-08-2016 05:05) Phospha 3.9 2.5-4.5 complet te 017 mg/dL ed SerPl-m 05:05 Cnc Magnesium SerPl-mCnc (11-08-2016 05:05) Magnesi 2.0 1.9-2.4 complet um 017 mg/dL ed SerPl-m 05:05 Cnc Sodium BldA-sCnc (11-08-2016 05:05) Sodium 134 136-145 complet BldA-sC 017 mmol/L ed nc 05:05 Potassium Bld-sCnc (11-08-2016 05:05) Potassi 7.0 3.7-4.8 complet um 017 mmol/L ed Bld-sCn 05:05 c Ca-I Bld-mCnc (11-08-2016 05:05) Ca-I 4.5 4.6-5.1 complet Bld-mCn 017 mg/dL ed c 05:05 Hct VFr Bld (11-08-2016 05:05) Hct VFr 33.5 % 40-51 complet Bld 017 ed 05:05 Bacteria XXX Anaerobe+Aerobe Cult (11-08-2016 05:05) Bacteri [id number] complet a XXX 017 06 No ed Anaerob 05:05 growth e+Aerob (qualif e Cult ier value) SCT NGB6 NO GROWTH DAY 5. L Bacteria Bro [place] Aerobe Cult (11-08-2016 04:42) Bacteri [id number] complet a XXX 017 06 No ed Anaerob 04:42 growth e+Aerob (qualif e Cult ier value) SCT NG2 NO GROWTH DAY 2. L Potassium Bld-sCnc (11-08-2016 02:53) Potassi 7.3 3.7-4.8 complet um 017 mmol/L ed Bld-sCn 02:53 c Sodium BldA-sCnc (11-08-2016 02:53) Sodium 135 136-145 complet BldA-sC 017 mmol/L ed nc 02:53 Lactate Bld-sCnc (11-08-2016 02:53) Lactate 10.7 complet 017 mmol/L ed Bld-sCn 02:53 c Ca-I Bld-mCnc (11-08-2016 02:53) Ca-I 3.0 4.6-5.1 complet Bld-mCn 017 mg/dL ed c 02:53 Hct VFr Bld (11-08-2016 02:53) Hct VFr 29.7 % 40-51 complet Bld 017 ed 02:53 Lactate Bld-sCnc (11-08-2016 02:50) Lactate [facility] LAB complet 017 ERROR ed Bld-sCn 02:50 L c mmol/L Magnesium SerPl-mCnc (11-08-2016 01:51) Magnesi 1.3 1.9-2.4 complet um 017 mg/dL ed SerPl-m 01:51 Cnc Bacteria Fld Aerobe Cult (11-06-2016 15:10) Bacteri [id number] complet a XXX 017 06 No ed Anaerob 15:10 growth e+Aerob (qualif e Cult ier value) SCT NG4 NO GROWTH DAY 4. L CC XXX NOTAP complet VC-aCnc 017 NOT ed 15:10 APPLICA BLE L Procedures Procedure DOS Code Location Performer Comment RADEX 63568 [place] ABDOMEN 1 7 MEDICAL SERV ANTEROPOS FOUNDATIO TERIOR N VIEW BLOOD 97342 [place] MATTHEW SMEAR 7 MEDICAL PERIPHERA SERV L INTERP FOUNDATIO PHYS N W/WRIT REPORT INITIAL 43319 [place] [address] CLARISSA [facility] CARE/DAY PHYSICIAN ELADIO 70 SERVI MINUTES THERAPEUT 46208 [place] [facility] IC 7 [facility] PROPHYLAC E E TIC/DX [facility] INJECTION SUBQ/IM COMPREHEN 03551 [facility] SIVE 7 [facility] METABOLIC E E PANEL [facility] URNLS DIP 66357 [facility] 7 [facility]CAR HEALTHCAR STICK/TAB E E LET RGNT [facility] AUTO W/O MICROSCOP Y ONDANSETR Q0162 [facility] ON 1 MG 7 [facility] ORL NOT E E EXCEED 48 [facility] HR DOSE REG BLOOD 44606 [facility] COUNT 7 [facility] HEALTHCAR COMPLETE E [place] [address] [facility] LIPASE 7 HEALTHCAR HEALTHCAR E E [facility] DIAB ONLY A5500 [facility] FIT CSTM 7 [facility]ACE PREP&SPL PROSTH PROSTH SHOE MX INC INC DNSITY INSRT FOR DIAB A5513 [facility] ONLY MX 7 BRACE BRACE DNSITY PROSTH PROSTH INSRT INC INC CSTM MOLD CSTM EA OBSERVATI 46052 [facility] ON/INPATI 7 MEDICINE [facility] ENT SERVICES HOSPITAL O [place] [address] [place] [address] [place] ABDOMEN & 7 RADIOLOGY III PELVIS W/O CONTRAST MATERIAL COMPREHEN 19912 DILEEP SORTOON SIVE [address] [place] [address] HOSPITAL PANEL BLOOD 14055 [facility] [place] COUNT [address] [place] [address] HOSPITAL AUTOMATED PROTHROMB 54486 [facility] IN TIME 7 [facility] [place] [address] DILEEP SORTOON AMMONIA [address] [place] [address] PROTHROMB 65470 DILE[facility] [place] IN TIME 7 [facility] OBSERVATI 09549 [facility] ON CARE 7 MEDICINE DISCHARGE SERVICES O MANAGEMEN T GLUC BLD 07867 DILE[facility] S[place] GLUC MNTR [address] [place] [address] CLEARED FDA SPEC HOME USE GLUC BLD 73646 DILE[facility] GLUC MNTR [address] [place] [address] HOSPITAL CLEARED FDA SPEC HOME USE COMPREHEN 56969 DI[facility] [address] [address] H[facility]PITAL PANEL PROTHROMB 90798 [facility]LE[facility] [place] IN TIME 7 [facility] BLOOD 34865 MAC[place]IO[place] COUNT [address] [place] [address] HOSPITAL AUTO&AUTO DIFRNTL WBC THROMBOPL 12133 DILEEP SORTO[place] ASTIN [address] [place] [address] HOSPITAL PARTIAL PLASMA/[place] [address] DILEEP SORTOON AMMONIA [address] [place] [address] [place] [address] DILEEP SORTOON AMMONIA [address] [place] [address] [place] [address] DILEEP FALK LIPASE [address] [place] [address] BLOOD 88192 MACARIOON MACARIOON COUNT [address] [place] [address] HOSPITAL AUTO&AUTO DIFRNTL WBC PROTHROMB 04143 DILEEP FALK IN TIME 7 [facility] COMPREHEN [address] HOSPITAL PANEL URNLS DIP 09996 DILEEP FALK [address] [place] [address] HOSPITAL LET REAGENT AUTO MICROSCOP Y INITIAL 34340 [facility] 7 MEDICINE ON SERVICES CARE/DAY O 70 MINUTES BLD BANK 87794 [place] PHYS SVCS 7 MEDICAL DIFFC SERV CROSS FOUNDATIO MATCH&/EV N AL REP ANES 71475 [place] UPPER GI 7 MEDICAL ENDOSCOPY SERVICES PROXIMAL TO DUODENUM ESOPHAGOG 94094 [place] SUZAN KEMPODMIKED 7 MEDICAL ENOSCOPY SERV TRANSORAL FOUNDATIO N DIAGNOSTI C INITIAL [address]147 [place] [address] CLARISSA ADRIAN CARE/DAY PHYSICIAN DECALVO 70 SERVI MINUTES BLD BANK 40317 [place] PHYS SVCS 7 MEDICAL DIFFC SERV CROSS FOUNDATIO MATCH&/EV N AL REP BLOOD 03570 DI[facility]EP FALK [address] HOSPITAL AUTOMATED COMPREHEN [address] [address] HOSPITAL PANEL RADIOLOGI 63464 [place] OLGA C EXAM 7 RADIOLOGY CHEST 2 VIEWS FRONTAL&L ATERAL DUP-SCAN 87605 [place] ROBERTH ARTL TIMOTHY 7 MEDICAL ABDL/PEL/ SERV SCROT&/RP FOUNDATIO R ORGN N COM RADIOLOGI 14894 [place] MERHAR C EXAM 7 MEDICAL CHEST 2 SERV VIEWS FOUNDATIO FRONTAL&L N ATERAL ECG 73812 [place] NIESHA ROUTINE 7 MEDICAL ECG SERV W/LEAST FOUNDATIO 12 LDS N I&R ONLY DUP-SCAN 45125 [place] LAWANDA ARTL TIMOTHY 7 MEDICAL ABDL/PEL/ SERV SCROT&/RP FOUNDATIO R ORGN N [facility] 90279 [place] DISCHARGE 7 MEDICAL DAY SERV MANAGEMEN FOUNDATIO T > 30 N MIN SBSQ 30953 [place] [facility] 7 MEDICAL CARE/DAY SERV 35 FOUNDATIO MINUTES N SWALLOWIN 58705 [place] DL G FUNCJ 7 MEDICAL W/CINERAD SERV IOGRAPY/V FOUNDATIO IDRADIOG N SBSQ 38412 [place] [facility] 7 MEDICAL CARE/DAY SERV 25 FOUNDATIO MINUTES N SBSQ 52480 [facility] 7 MEDICAL CARE/DAY SERV 25 FOUNDATIO MINUTES N RADIOLOGI 53239 [place] LAYLA C 7 MEDICAL AYA EXAMINATI SERV ON CHEST FOUNDATIO SINGLE N VIEW FRONTAL ECG 68558 [place] BENSON ROUTINE 7 MEDICAL ECG SERV W/LEAST FOUNDATIO 12 LDS N I&R ONLY RADIOLOGI 16164 [place] ALANIS C 7 MEDICAL EXAMINATI SERV ON CHEST FOUNDATIO SINGLE N VIEW FRONTAL RADIOLOGI 60897 [place] ALANIS C 7 MEDICAL EXAMINATI SERV ON CHEST FOUNDATIO SINGLE N VIEW FRONTAL ECG 34995 [place] DAMIAN ROUTINE 7 MEDICAL ECG SERV W/LEAST FOUNDATIO 12 LDS N I&R ONLY CRITICAL 55588 [place] ALONDRA CARE 7 MEDICAL ILL/INJUR SERV ED FOUNDATIO PATIENT N INIT 30-74 MIN CRITICAL 83668 [place] AL[place] CARE 7 MEDICAL ILL/INJUR SERV ED FOUNDATIO PATIENT N INIT 30-74 MIN RADIOLOGI 66175 [place] TREVON C 7 MEDICAL EXAMINATI SERV ON CHEST FOUNDATIO SINGLE N VIEW FRONTAL RADIOLOGI 76960 [place] ONEAL C 7 MEDICAL EXAMINATI SERV ON CHEST FOUNDATIO SINGLE N VIEW FRONTAL ESOPHAGOG 54251 [place] ESTHERMAGED ASTRODUOD 7 MEDICAL Y ENOSCOPY SERV TRANSORAL FOUNDATIO N DIAGNOSTI C RADEX 27990 [place] DL ABDOMEN 1 7 MEDICAL SERV ANTEROPOS FOUNDATIO TERIOR N VIEW COLONOSCO 65559 [place] ESTHERLOFSAj PY FLX DX 7 MEDICAL Y W/COLLJ SERV SPEC WHEN FOUNDATIO PFRMD N CRITICAL 85167 [place] ALONDRA CARE 7 MEDICAL ILL/INJUR SERV ED FOUNDATIO PATIENT N INIT 30-74 MIN CRITICAL 81744 [place] ALONDRA CARE 7 MEDICAL ILL/INJUR SERV ED FOUNDATIO PATIENT N INIT 30-74 MIN SBSQ 74564 [facility] 7 NURSE CARE/DAY PRACTITIO 25 NER GR MINUTES DUP-SCAN 02654 [place] JESSICA ARTL TIMOTHY 7 MEDICAL ABDL/PEL/ SERV SCROT&/RP FOUNDATIO R ORGN N COM RADEX 64910 [place] DL ABDOMEN 1 7 MEDICAL SERV ANTEROPOS FOUNDATIO TERIOR N VIEW RADIOLOGI 15083 [place] TREVON C 7 MEDICAL EXAMINATI SERV ON CHEST FOUNDATIO SINGLE N VIEW FRONTAL RADIOLOGI 46131 [place] TREVON C 7 MEDICAL EXAMINATI SERV ON CHEST FOUNDATIO SINGLE N VIEW FRONTAL CRITICAL 70533 [place] ALONDRA CARE 7 MEDICAL ILL/INJUR SERV ED FOUNDATIO PATIENT N INIT 30-74 MIN CRITICAL 18201 [place] ALONDRA CARE 7 MEDICAL ILL/INJUR SERV ED FOUNDATIO PATIENT N INIT 30-74 MIN RADIOLOGI 08823 [place] ONEAL C 7 MEDICAL EXAMINATI SERV ON CHEST FOUNDATIO SINGLE N VIEW FRONTAL ECG 30709 [place] BENSON ROUTINE 7 MEDICAL ECG SERV W/LEAST FOUNDATIO 12 LDS N I&R ONLY SBSQ 16257 [facility] 7 NURSE CARE/DAY PRACTITIO 35 NER GR MINUTES RADIOLOGI 37697 [place] RONAN C 7 MEDICAL EXAMINATI SERV ON CHEST FOUNDATIO SINGLE N VIEW FRONTAL RADIOLOGI 36190 [place] RONAN C 7 MEDICAL EXAMINATI SERV ON CHEST FOUNDATIO SINGLE N VIEW FRONTAL RADEX 72267 [place] JESSICA ABDOMEN 1 7 MEDICAL SERV ANTEROPOS FOUNDATIO TERIOR N VIEW ECG 84556 [place] BENSON ROUTINE 7 MEDICAL ECG SERV W/LEAST FOUNDATIO 12 LDS N I&R ONLY RADIOLOGI 95801 [place] WYNNE C 7 MEDICAL MONA EXAMINATI SERV ON CHEST FOUNDATIO SINGLE N VIEW FRONTAL SERVICES 02801 AC QUINTERO PROVIDED 7 PHYSICIAN U BTW 10 S, PLLC PM&8 AM AT 24-HR FACI BLD BANK 97786 [place] PHYS SVCS 7 MEDICAL AUTHJ SERV DEVIJ FOUNDATIO STANDARD N REPRT GROUND A0425 [facility] MILEAGE 7 AMBULANCE AMBULANCE PER SERVICE SERVICE STATUTE MILE INITIAL 89196 [facility] INPATIENT 7 NURSE CONSULT PRACTITBRIELLE ARROYO/MATTIE VALDOVINOS GR PT 80 MIN AMB A0427 [facility] SERVICE 7 AMBULANCE AMBULANCE ALS SERVICE SERVICE EMERGENCY TRANSPORT LEVEL 1 AMB A0427 [facility] SERVICE 7 AMBULANCE AMBULANCE ALS SERVICE SERVICE EMERGENCY TRANSPORT LEVEL 1 [facility]25 [facility] PER SERVICE SERVICE STATUTE MILE AMBULANCE A0429 [facility] SERVICE 7 AMBULANCE AMBULANCE BLS SERVICE SERVICE EMERGENCY TRANSPORT GROUND A0425 [facility]ANCE [facility]UL[facility] PER SERVICE SERVICE STATUTE MILE SERVICES 29877 [facility] PROVIDED 7 PHYSICIAN U BTW 10 S, PLLC PM&8 AM AT 24-HR FACI RADIOLOGI 71296 [place] EXAM 7 MEDICAL CHEST 2 IMAGING VIEWS ASS FRONTAL&L ATERAL CRITICAL 48437 [facility] CARE 7 PHYSICIAN U ILL/INJUR S, PLLC ED PATIENT INIT 30-74 MIN GROUND A0425 [facility] MILEAGE 7 [facility] PER [facility] STATUTE EMS EMS MILE OBSERVATI 54050 [facility] ON CARE 7 MEDICINE A DISCHARGE SERVICES O MANAGEMEN T INITIAL 24429 [facility] OBSERVATI 7 MEDICINE A ON SERVICES CARE/DAY O 70 MINUTES RADIOLOGI 97528 [facility] SCALF C EXAM 7 RADIOLOGY CHEST 2 VIEWS FRONTAL&L ATERAL RADIOLOGI 16242 YUNIOR FIGUEROA C EXAM 7 MEDICAL CHEST 2 IMAGING VIEWS ASS FRONTAL&L ATERAL RADIOLOGI 55988 [place] C EXAM 7 MEDICAL CHEST 2 IMAGING VIEWS ASS FRONTAL&L ATERAL GROUND A0425 [facility] PER SERVICE SERVICE STATUTE MILE AMB A0427 [facility] SERVICE 7 AMBULANCE AMBULANCE ALS SERVICE SERVICE EMERGENCY TRANSPORT LEVEL 1 RADEX 10619 [place] SCALF MARILIN RIBS 6 RADIOLOGY UNILATERA L 2 VIEWS COLLECTIO 79337 DILE[facility] FALK N VENOUS 6 [facility] VENIPUNCT URE COMPREHEN 17235 DILEEP FALK SIVE [address] [facility] PANEL PROTHROMB 91711 DILEEP FALK IN TIME 6 [facility] BLOOD 43980 DILEEP FALK COUNT 6 [facility] AUTOMATED RADEX 67223 [place] RIBS UNI 6 RADIOLOGY RHO W/POSTERO ANT [place] MIN[address] [place] [address] [place] ABDOMEN & 6 RADIOLOGY RHO PELVIS W/O CONTRAST MATERIAL RADEX 02208 [facility] MATIAS RIBS 6 CLARISSA UNILATERA EMERGENCY L 2 VIEWS PHYS RADIOLOGI 72163 [facility] MATIAS C 6 CLARISSA EXAMINATI EMERGENCY ON CHEST PHYS SINGLE VIEW FRONTAL RADIOLOGI 64411 [place] C 6 RADIOLOGY RHO EXAMINATI ON CHEST SINGLE VIEW FRONTAL ECG 08209 [facility] ARNOLD ROUTINE 6 CLARISSA LAST ECG EMERGENCY W/LEAST PHYS 12 LDS I&R ONLY ECG 66930 MD DAMIAN LASHAWN ROUTINE 6 MEDICAL ECG SERV W/LEAST FOUNDATIO 12 LDS N I&R ONLY RADIOLOGI 28509 [place] DAGO HOGAN C EXAM 6 MEDICAL MARY KATE CHEST 2 SERV VIEWS FOUNDATIO FRONTAL&L N ATERAL HEMOGLOBI 60241 [facility] JIM N 6 NURSE REGINALD GLYCOSYLA PRACTITIO DANE A1C NER GR POLYSOM 68638 LINDA GALLO GALLO LINDA 6/>YRS 6 MD SLEEP 4/> CONSULTIN ADDL G SRV SYBIL ATTND MRI 34601 [place] JENNIFER ABDOMEN 6 MEDICAL W/O & SERV W/CONTRAS FOUNDATIO T N MATERIAL POLYSOM 49556 DILEEP SORTOON 6/>YRS 6 [facility] SLE[facility] 4/> HOSPITAL HOSPITAL ADDL SYBIL ATTND COMPREHEN [address] F[address] [facility] PANEL COLLECTIO 04249 [facility] FALK N VENOUS 6 [facility] VENIPUNCT URE BLOOD 76614 [facility] COUNT 6 [facility] AUTOMATED PROTHROMB 14242 DILEEP FALK IN TIME 6 [facility] ECHO 27346 LINDA GALLO GALLO LINDA TTHRC R-T 6 2D CONSULTIN W/WOM-MOD G SRV E COMPL SPEC&COLR D COLLECTIO 55073 MANUEL ARNDT JAMIE N VENOUS 6 FAMILY BLOOD PHYSICIAN VENIPUNCT S PLLC URE COMPREHEN [address] SIVE 6 [facility] PANEL INITIAL 12954 [facility] OBSERVATI 6 CLARISSA ISIDRA ON PHYSICIAN CARE/DAY SERVI 30 MINUTES RADIOLOGI 85759 [facility]AY C 6 RADIOLOGY III MARY KATE EXAMINATI ON CHEST SINGLE VIEW FRONTAL RADIOLOGI 11550 [facility] C 6 CLARISSA PAT EXAMINATI EMERGENCY ON CHEST PHYS SINGLE VIEW FRONTAL RADIOLOGI 61835 [facility] SCALF MARILIN C EXAM 6 RADIOLOGY CHEST 2 VIEWS FRONTAL&L ATERAL ECG 97898 [facility] ROUTINE 6 CLARISSA PAT ECG EMERGENCY W/LEAST PHYS 12 LDS I&R ONLY COLLECTIO 80316 [facility] N VENOUS 6 Y Y BLOOD [facility] VENIPUNCT URE HEPATITIS 05440 [facility] B SURF 6 [facility] 45194 [facility] HEALTH 6 Y Y PANEL [facility] BLOOD 73942 [facility] COUNT 6 Y Y RETICULOC [facility] YTES AUTO 1/> CELL ISACC ANTINUCLE 45606 [facility] AR 6 Y Y ANTIBODIE [facility] [place] [address] [facility] IRON 6 [place] [address] [facility] FREE 6 Y [place] [facility] [place] [address] [facility] HAPTOGLOB 6 Y Y IN [facility] QUANTITAT NAIF CERULOPLA 38948 [facility] SMIN 6 [place] [address] [facility] FOLIC 6 Y Y ACID RBC [facility] [place] [address] [facility] FERRITIN 6 Y Y [facility] IMMUNOASS 21675 [facility] AY 6 Y Y ANALYTE [facility] QUAL/SEMI QUAL MULTIPLE STEP COLD 76679 [facility] AGGLUTINI 6 Y Y N TITER [facility] HEPATITIS 45451 [facility] A 6 Y Y ANTIBODY [facility] [place] [address] [facility] GAMMAGLOB 6 Y Y ULIN IGA [facility] IGD IGG IGM EACH LACTATE 93069 [facility] DEHYDROGE 6 Y Y NASE [place] [facility] [address] [place] SCALF MARILIN ABDOMEN & 5 RADIOLOGY PELVIS W/CONTRAS T MATERIAL ESOPHAGOG 04172 DAYNA TURNER ASTRODUOD [address] [place] [address] GRE ENOSCOPY PHYSICIAN TRANSORAL PRA DIAGNOSTI C ANES 93260 [place] UPPER GI 5 ANESTHESI ENDOSCOPY A GROUP PROXIMAL PS TO DUODENUM GLUC BLD 37919 [facility] GLUC MNTR [address] [place] [address] CLEARED FDA SPEC HOME USE HI OSM Q9963 DILEEP FALK CONTRST [address] [place] [address] 350-399 MG/ML IODINE CONC ML URNLS DIP 97843 [facility] [address] STICK/TAB HOSPITAL HOSPITAL LET REAGENT AUTO MICROSCOP Y COMPREHEN 18944 [facility] F[facility] SIVE [address] [place] [address] HOSPITAL PANEL ONDANSETR Q0162 [facility] ON [address] [place] [address] OR NOT HOSPITAL HOSPITAL EXCEED 48 HR DOSE REG RADEX 26422 [place] SPINE 5 RADIOLOGY RHO LUMBOSACR AL 2/[address] [place] [address] [place] ABDOMEN & 5 RADIOLOGY RHO PELVIS W/O CONTRAST MATERIAL RADIOLOGI 88283 [place] C 5 RADIOLOGY RHO EXAMINATI ON CHEST SINGLE VIEW FRONTAL IAADIADOO 14320 DILEEP SORTOON 5 [facility] [address] DILEEP FALK AMYLASE 5 [facility] [place] [address] DILEEP FALK LIPASE 5 [facility] BLOOD 96908 DILEEP FALK COUNT [address] [place] [address] HOSPITAL AUTO&AUTO DIFRNTL WBC COLLECTIO 83663 DILEEP FALK N VENOUS 5 [facility] VENIPUNCT URE COLLECTIO 92719 DILEEP FALK N VENOUS 5 [facility] VENIPUNCT URE COMPREHEN 50954 DILEEP FALK SIVE [address] [place] [address] HOSPITAL PANEL URNLS DIP 24044 DILEEP FALK [address] [place] [address] STICK/TAB HOSPITAL HOSPITAL LET REAGENT AUTO MICROSCOP Y INJECTION J1885 DILEEP FALK [address] [place] [address] [facility] TROMETHAM INE PER 15 [place] BLOOD 80004 DILEEP FALK COUNT [address] [place] [address] HOSPITAL AUTO&[place] [address] DILEEP FALK LIPASE [address] [place] [address] [place] [address] [facility] LIPASE 5 Y Y HOSPITAL HOSPITAL INJECTION J2405 [facility] 5 Y Y [facility] HOSPITAL ON HCL PER 1 [place] [address] [facility] LACTATE 5 Y Y HOSPITAL HOSPITAL BLOOD 38122 UNIVERS UNIVERSIT COUNT 5 Y Y [facility] HOSPITAL AUTO&[place] [address] UN[facility] UN[facility] ABDOMINAL 5 Y Y [facility]PITAL TIME W/IMAGE DOCUMENTA TION COMPREHEN 47360 [facility] PANEL THER 22293 UN[facility] PROPH/DX 5 Y Y NJX IV HOSPITAL HOSPITAL PUSH SINGLE/1S T SBST/[place] [address] DILEEP FALK ABDOMINAL [address] [place] [address] REAL [facility] HOSPITAL TIME W/[place] [address] [facility] [place] ABDOMINAL 5 RADIOLOGY RHO REAL TIME W/IMAGE LIMITED INJECTION J1170 [facility] [address] JEANNINE UP TO 4 MG INJECTION J2405 [facility] [address]ALO[address] ON HCL PER 1 MG HOSPITAL [address] [facility] DISCHARGE 5 CLARISSA EDGAR IGN DAY PHYSICIAN MANAGEMEN SERVI T 30 MIN/< SBSQ 20198 [facility] 5 CL[place]ISSA HUG CARE/DAY PHYSICIAN 25 SERVI MINUTES SBSQ [address] [place] [address] CL[place]IS[place] HUG CARE/DAY PHYSICIAN 35 SERVI MINUTES INITIAL 75878 [facility] 5 CLARISSA A GOP CARE/DAY PHYSIC[place] [address] [place] [address] [facility] [place] ABDOMEN & 5 RADIOLOGY RAY PELVIS W/O CONTRAST MATERIAL COLLECTIO 66037 MANUEL GREEN JAMIE N VENOUS 5 FAMILY BLOOD PHYSICIAN VENIPUNCT S PLLC URE COMPREHEN [address] SIVE 5 GROUP GROUP METABOLIC [facility] PANEL HEMOGLOBI [address] N 5 GROUP GROUP GLYCOSYLA LABS [facility] DANE A1C CYANOCOBA [address] NAHOMI 5 GROUP GROUP VITAMIN LABS [facility] B-12 BLOOD [address] COUNT 5 GROUP GROUP COMPLETE LABS [facility] AUTO&[place] [address] DILEEP FALK LIPASE [address] [place] [address] GLUC BLD 83669 DILEEP FALK GLUC MNTR 5 [facility] CLEARED FDA SPEC HOME USE COMPREHEN 79477 DILEEP FALK SIVE [address] [place] [address] PANEL COLLECTIO 50657 DILEEP FALK N VENOUS [address] [place] [address] VENIPUNCT URE PRESSURIZ 08272 DILEEP FALK ED/NONPRE [address] [place] [address] HOSPITAL INHALATIO N TREATMENT INITIAL 59060 [facility] OBSERVATI 5 CLARISSA EDGAR IGN ON PHYSICIAN CARE/DAY SERVI 70 MINUTES COMPREHEN 18735 [facility] SIVE 5 [facility] PANEL GLUC BLD 61227 [facility] GLUC MNTR 5 [facility] CLEARED FDA SPEC HOME USE BLOOD 11186 [place] [facility] PET COUNT 5 [facility] [id number] [facility] OBSERVATI [address] [place] [address] ON HOSPITAL HOSPITAL SERVICE PER HOUR NATRIURET 10632 [facility] IC [address] [place] [address] PEPTIDE [facility] [place] [address] [facility]IPASE [address] [place] [address] [place] [address] [facility] AMYLASE [address] [place] [address] HOSPITAL IAADIADOO [address] [facility] GLUC BLD [address] [facility] GLUC MNTR 5 [facility]PITAL CLEARED FDA SPEC HOME USE CULTURE 92571 [facility] BACTERIAL [address] [place] [address] BLOOD [facility] AEROBIC W/ID ISOLATES IAADIADOO [id number] [facility] CCUS GROUP A GENERAL [address] HOSPITAL URNLS DIP [address] [facility] HOSPITAL LET REAGENT AUTO MICROSCOP Y NONINVASI 25940 [facility] VE [address] [place] [address] [facility] HOSPITAL OXIMETRY SINGLE DETER RADIOLOGI 42782 [facility] C EXAM [address] [place] [address] CHEST 2 HOSPITAL HOSPITAL VIEWS FRONTAL&L ATERAL HEMOGLOBI 64688 [facility] JOSE ANTONIO LUISA N 4 NURSE PETER VELA A1C NER GR IM ADM 34345 [facility] PRQ ID 4 DISTRICT DISTRICT SUBQ/IM HLTH DEPT HLTH DEPT NJXS EA RESHMA RESHMA VACCINE HEPA 80763 [facility] VACCINE 4 [facility] DISTRICT ADULT HLTH DEPT HLTH DEPT DOSE FOR RESHMA RESHMA INTRAMUSC ULAR USE IM ADM 48898 [facility] PRQ ID 4 DISTRICT DISTRICT SUBQ/IM HLTH DEPT HLTH DEPT NJXS 1 RESHMA RESHMA VACCINE HEPB 70145 [facility] VACCINE 4 DISTRICT DISTRICT ADULT 3 HLTH DEPT HLTH DEPT DOSE RESHMA RESHMA SCHEDULE FOR IM USE RADEX 485[address] [facility] [place] ABDOMEN 4 RADIOLOGY RHO COMPL W/DCBTS&/ ERC VIEWS DXA BONE 04289 [place] DENSITY 4 [facility] STUDY 1/> HOSPITAL [place] [address] [place] ABDOMINAL 4 [facility]PITAL TIME W/IMAGE DOCUMENTA TION COMPRE 98367 [place] [facility] SET AUDIOMETR 4 PHYSICIAN Y PRACTICE THRESHOLD L EVAL SP RECOGNIJ TYMPANOME 76624 [place] [facility] TRY 4 PHYSICIAN PRACTICE L HEPATITIS 84975 [facility] B SURF 4 Y Y ANTIBODY [facility] HBSAB PROTHROMB 90563 [facility] IN TIME Y Y [facility] HEPATITIS 24207 [facility] A 4 Y Y ANTIBODY [facility] HAAB Encounters Encounter Start End Date Code Location Performer Type Date EMERGENCY 98505 [facility] [place] [facility] 7 7 [place] VISIT EMERGENCY HIGH PHYS SEVERITY& THREAT FUN EMERGENCY 78645 [facility] 7 7 [place] DEPARTMEN EMERGENCY T VISIT PHYS HIGH/URGE NT SEVERITY EMERGENCY 43038 [facility] DARA DEPT 7 7 MEDICAL VISIT SERV HIGH FOUNDATIO SEVERITY& N THREAT [facility] 7 7 [facility] EMERGENCY 89433 MD KERRIE 7 7 MEDICAL M DEPARTMEN SERV T VISIT FOUNDATIO HIGH/URGE N NT SEVERITY EMERGENCY 26280 [facility] 7 7 [place] VISIT EMERGENCY HIGH PHYS SEVERITY& THREAT [facility] [place] 16796 [facility] [place] [facility] 7 7 [facility] EMERGENCY 40183 [place] [facility] 7 7 [facility] VISIT HOSPITAL HIGH SEVERITY& THREAT FUNJ EMERGENCY 82983 [facility] 7 7 MEDICAL VISIT SERV HIGH FOUNDATIO SEVERITY& N THREAT FUNJ OFFICE 61701 [facility] 7 7 FAMILY T VISIT PHYSICIAN 15 S PLLC MINUTES EMERGENCY 78996 [facility] 7 7 [place] DEPARTMEN EMERGENCY T VISIT PHYS HIGH/URGE NT SEVERITY HOSPITAL - 7 7 [facility] EMERGENCY 31682 [facility] 7 7 MEDICAL VISIT SERV HIGH FOUNDATIO SEVERITY& N THREAT [facility] [place] [facility] 15511 [facility] 7 7 [place] DEPARTMEN EMERGENCY T VISIT PHYS HIGH/URGE NT SEVERITY EMERGENCY 26427 [facility] 7 7 [place] VISIT EMERGENCY HIGH PHYS SEVERITY& THREAT FUNJ EMERGENCY 00561 [facility] PHYSICIAN U VISIT S, PLLC HIGH SEVERITY& THREAT FUNJ OFFICE 14006 [facility] 7 7 MEDICAL ION SERV NEW/ESTAB FOUNDATIO PATIENT N 80 MIN EMERGENCY 11053 [facility] ROSEN[facility] 7 7 MEDICAL DEPARTMEN SERV T VISIT FOUNDATIO MODERATE N SEVERITY EMERGENCY 89591 [facility] 7 7 [place] VISIT EMERGENCY HIGH PHYS SEVERITY& THREAT FUNJ EMERGENCY 58320 [facility] 6 6 [place] DEPARTMEN EMERGENCY T VISIT PHYS HIGH/URGE NT SEVERITY EMERGENCY 90413 [facility] 6 6 [place] PAT DEPARTMEN EMERGENCY T VISIT PHYS HIGH/URGE NT SEVERITY [facility] [place] [facility] 6 6 [facility] 64014 MANUEL AYALA [facility] 6 6 FAMILY T VISIT PHYSICIAN 15 S PLLC MINUTES EMERGENCY 87843 [facility] DEPT 6 6 [place] VISIT EMERGENCY HIGH PHYS SEVERITY& THREAT FUNCJ EMERGENCY 35643 [facility] DEPT 6 6 [place] LAST VISIT EMERGENCY HIGH PHYS SEVERITY& THREAT FUNCJ EMERGENCY [address] 6 6 MEDICAL DEPARTMEN SERV T VISIT FOUNDATIO LOW/MODER N SEVERITY OFFICE 69891 [facility] 6 6 NURSE REGINALD T VISIT PRACTITIO 25 NER GR MINUTES EMERGENCY 23706 [facility] 6 6 [place] PAT DEPARTMEN EMERGENCY T VISIT PHYS HIGH/URGE NT SEVERITY [facility] [place] [facility] 6 6 [facility] 52239 [facility] 6 6 FOOT & T NEW 30 ANKLE CE MINUTES OFFICE 25114 [facility] 6 6 FAMILY T VISIT PHYSICIAN 15 S PLLC MINUTES EMERGENCY 41437 [facility] IDAMOND [facility] 6 6 MEDICAL DEPARTMEN SERV T VISIT FOUNDATIO MODERATE N SEVERITY EMERGENCY 96667 [facility] DE[facility] 6 6 [place] KATHY VISIT EMERGENCY HIGH PHYS SEVERITY& THREAT FUNCJ OFFICE 57087 [facility] 6 6 FAMILY T VISIT PHYSICIAN 25 S PLLC MINUTES EMERGENCY 84174 [facility] DEPT 6 6 [place] PAT VISIT EMERGENCY HIGH PHYS SEVERITY& THREAT FUNCJ EMERGENCY 46120 [facility] DE[facility] 6 6 [place] KATHY VISIT EMERGENCY HIGH PHYS SEVERITY& THREAT FUNCJ OFFICE 76553 [facility] 6 6 Y OF RTHY JERRY T VISIT MCFARLANUCK 15 HOSPI MINUTES OFFICE 58889 MANUEL ARNDT JAMIE [facility] 6 6 FAMILY T VISIT PHYSICIAN 15 S PLLC MINUTES EMERGENCY 97921 [facility] 6 6 [place] PAT DEPARTMEN EMERGENCY T VISIT PHYS HIGH/URGE NT SEVERITY [facility]PITAL [facility] - 6 6 Y [facility] T OFFICE 91274 [facility] 5 5 FAMILY T VISIT PHYSICIAN 15 S PLLC MINUTES OFFICE 83308 MANUEL AYALA [facility] 5 5 FAMILY T VISIT PHYSICIAN 25 S PLLC MINUTES OFFICE 49422 MANUEL AYALA [facility] 5 5 FAMILY T VISIT PHYSICIAN 15 S PLLC MINUTES [facility] 5 [facility] EMERGENC[facility] 81299 [place] 5 5 [facility] T VISIT HIGH/URGE NT SEVERITY EMERGENCY 15464 [facility] 5 [place] COLLINS VISIT EMERGENCY HIGH PHYS SEVERITY& THREAT FUNCJ EMERGENCY 50864 [place] 5 5 [facility] T VISIT HIGH/URGE NT SEVERITY [facility] 5 5 [facility] - 5 5 [facility] T EMERGENCY 03035 [facility] 5 5 [facility] SERV T VISIT FOUNDATIO MODERATE N SEVERITY EMERGENCY 53289 [facility] 5 5 [facility] T VISIT HIGH/URGE NT SEVERITY [facility] 5 5 [facility] 64008 MANUEL YRIS AYALA [facility] 5 5 FAMILY T VISIT PHYSICIAN 25 S PLLC MINUTES EMERGENCY 39397 [place] 5 5 [facility] T VISIT MODERATE SEVERITY [facility] [place] - 5 5 [facility] T EMERGENCY 00494 [facility] 5 5 [place] DEPARTMEN EMERGENCY T VISIT PHYS HIGH/URGE NT SEVERITY OFFICE 36497 MANUEL GREEN JAMIE OUTPATIEN 5 5 FAMILY T VISIT PHYSICIAN 15 S PLLC MINUTES [facility]OSP[facility] [place] - 5 5 [facility] INPATIENT [facility]OSPITAL EMERGENCY 41292 [facility] DEPT 5 5 [place] COLLINS VISIT EMERGENCY HIGH PHYS SEVERITY& THREAT FUN OFFICE 71445 [facility] GREEN [facility] OUTPATI[facility] 5 5 FAMILY T VISIT PHYSICIAN 15 S PLLC MINUTES EMERGENCY 72954 [facility] 5 5 [place] PAT DEPARTMEN EMERGENCY T VISIT PHYS HIGH/URGE NT SEVERITY EMERGENCY 30097 [place] 5 5 [facility] T VISIT MODERATE SEVERITY [facility] [place] - 5 5 [facility] 63814 MANUEL RODRIGUEZF OUTPATIEN 5 5 FAMILY T VISIT PHYSICIAN 15 S PLLC MINUTES EMERGENCY 01418 [facility] DEPT 5 5 [place] THO VISIT EMERGENCY HIGH PHYS SEVERITY& THREAT [facility] [place] - 5 5 [facility] 32084 [facility] JOSE ANTONIO LUISA OUTPATIEN 4 4 NURSE T NEW 45 PRACTITIO MINUTES NER GR OFFICE 35688 [facility] GREEN JAMIE OUTPATI[facility] 4 4 FAMILY T VISIT PHYSICIAN 15 S PLLC MINUTES OFFICE 16818 MAN[facility] GREEN JAMIE OUTPATI[facility] 4 4 FAMILY T VISIT PHYSICIAN 25 S PLLC MINUTES EMERGENCY 63738 [facility] DE[facility] 4 4 [place] MUH VISIT EMERGENCY HIGH PHYSI SEVERITY& THREAT [facility] DILEEP - 4 4 [facility] 58872 [facility] 4 PHYSICIAN LES T VISIT PRACTICE 15 L MINUTES OFFICE 18366 [facility] 4 4 MEDICAL BELLA T VISIT SERV 25 FOUNDATIO MINUTES [facility] UNIVERS[facility] - 4 4 [facility] T OFFICE 95591 DILEEP CL[facility] 4 4 PHYSICIAN KALI ION PRACTICE NEW/ESTAB L PATIENT 40 MIN OFFICE 08420 MANUEL AYALA OUTPATI 4 4 FAMILY T VISIT PHYSICIAN 15 S PLLC MINUTES
--- OUTSIDE RECORDS SUMMARY | 2017-06-14 12:26 | External Medical Summary Rpt ---
Author Author , UNIQUE CALHOUN Address Unknown Phone [email or web address] Team Providers Care Pattern Cleaner Name Role Phone SIMONE CHICHI, SIMONE CHICHI Unavailable Unavailable ARNOLD, ARNOLD Unavailable Unavailable ARNOLD LAST, ARNOLD Unavailable Unavailable LAST EDUARDO LES, EDUARDO Unavailable Unavailable LES LAYTON, LAYTON Unavailable Unavailable AVALLONE, AVALLONE Unavailable Unavailable BEINEKE, BEINEKE Unavailable Unavailable PULIDO, PULIDO Unavailable Unavailable [facility] Unavailable Unavailable HOSP[facility], [facility] PH[facility]IAN Unavailable Unavailable PRACTICE L, [place] [facility], [facility] Unavailable Unavailable [facility] Unavailable Unavailable SERVICE, [facility] BRIAN, Unavailable Unavailable BRIAN MICHAEL EDGAR, MICHAEL Unavailable Unavailable EDGAR MICHAEL EDGAR IGN, Unavailable Unavailable MICHAEL EDGAR IGN [facility] Unavailable Unavailable INC, [facility] Unavailable Unavailable INC, [facility] CHANDEL, CHANDEL Unavailable Unavailable CHANDEL COLLINS, CHANDEL Unavailable Unavailable COLLINS CHESTNUT, CHESTNUT Unavailable Unavailable [facility] Unavailable Unavailable PHYSICIAN PRA, [facility], Unavailable Unavailable [...] Unavailable SERVICES O, [facility] O CLAIMS COORDINATOR, CLAIMS COORDINATOR Unavailable Unavailable SHAY III, SHAY Unavailable Unavailable III SHAY III MARY KATE, Unavailable Unavailable SHAY III MARY KATE [facility] Unavailable GROUP PS, [facility] Un[facility] Unavailable [facility], [facility] MATTHEW, MATTHEW Unavailable Unavailable [facility] N[facility] Unavailable Unavailable PRACTITIONER GR, [facility] PRACTITIONER GR GOOD JERRY, Unavailable Unavailable [facility] BRANDAN PET, BRANDAN PET Unavailable Unavailable BENSON, BENSON Unavailable Unavailable [facility] Unavailable [facility], [facility], Unavailable Unavailable [facility] JESSICA, JESSICA Unavailable Unavailable [place] [...] CONSULTING SRV, LINDA GALLO MD CONSULTING SRV [facility] Unavailable Unavailable EMS, [facility] Unavailable [facility]available EMS[facility] Unavailable Unavailable [facility], [facility], Unavailable Unavailable PLLC, [facility], Unavailable Unavailable [facility] [...] Unavailable [facility] Unavailable Unavailable [facility], [facility] Unavailable Unavailable PHYSICIAN SERVI, [facility] WEBBER, WEBBER Unavailable Unavailable WEBBER RAY, WEBBER Unavailable Unavailable RAY SWINEY PAT, SWINEY Unavailable Unavailable PAT FLORENCIO TER, FLORENCIO TER Unavailable Unavailable [facility] Unavailable Unavailable HOSPITALS, [facility], Unavailable Un[facility] BRENNAN MARY KATE, BRENNAN Unavailable Unavailable MARY KATE JIM REGINALD, JIM Unavailable Unavailable REGINALD ALANIS, ALANIS Unavailable Unavailable [facility] Unavailable Unavailable DEPT [facility], [facility] DEPT [facility] Unavailable Unavailable DEPT RESHMA, [facility] DEPT [facility] NICOLAS VALENZUELA Unavailable Unavailable ZAGUROVSKAYA, [...] R10.31 RIGHT LOWER 05-15-2017 [facility] PAIN 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 (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) 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 OF INSULIN Z79.84 [facility] 05-15-2017 (CURRENT) USE OF ORAL HYPOGLYCEMI C DRUGS Z79.899 OTHER LONG 05-15-2017 TERM (CURRENT) DRUG THERAPY K37 UNSPECIFIED 05-09-2017 APPENDICITI S D539 NUTRITIONAL 05-08-2017 [facility] U[facility]PECIFIED [facility] D696 THROMBOCYTO [...] O FAILURE WITHOUT COMA R51 HEADACHE 02-14-2017 [facility] Z794 ASTRONAUT MISSION SPECIALIST 02-14-2017 [place] CURRENT USE [facility] Z7984 CHCF 02-14-2017 [place] USE OF ORAL [facility] HYPOGLYCEMI C DRUGS Z9119 PATIENTS 02-14-2017 [place] NONCOMPLIAN [facility] CE W/OTH HOSPITAL MED TX & REGIMEN [...] DISEASE WITHOUT HEART FAILURE D649 ANEMIA 01-31-2017 [facility] UNSPECIFIED SERV [facility] K92.2 Gastrointes 01-30-2017 tinal hemorrhage, unspecified K922 GASTROINTES 01-30-2017 [facility] TINAL [facility] HEMORRHAGE [facility] UNSPECIFIED E1165 TYPE 2 01-29-2017 [place] DIABETES FAMILY MELLITUS PHYSICIANS WITH [facility] HYPERGLYCEM [place] I38241 PAIN IN 01-29-2017 [place] RIGHT FOOT FAMILY PHYSICIANS [facility] W33656 PAIN IN 01-29-2017 [place] LEFT FOOT FAMILY PHYSICIANS [facility] M79.671 PAIN IN 01-28-2017 RIGHT FOOT M79.672 [...] index (BMI) 34.0-34.9, adult D62 ACUTE 01-15-2017 [facility] POSTHEMORRH SERVICES AGIC ANEMIA K209 ESOPHAGITIS 01-15-2017 [facility] UNSPECIFIED K921 MELENA 01-15-2017 [facility] D509 IRON 01-12-2017 [facility] DEFICIENCY N PHYSICIAN ANEMIA SERVI UNSPECIFIED I160 HYPERTENSIV 01-12-2017 [facility] E URGENCY N PHYSICIAN SERVI K219 GASTRO-ESOP 01-12-2017 [facility] H REFLUX N PHYSICIAN DISEASE SERVI WITHOUT ESOPHAGITIS N179 ACUTE 01-12-2017 [facility] UNSPECIFIED Z7682 AWAITING 01-12-2017 [facility] STATUS Z79.2 [facility] 12-31-2016 (CURRENT) USE OF ANTIBIOTICS Q39299 EFFUSION 12-27-2016 [facility] RIGHT ANKLE N EMERGENCY PHYS Q38864 EFFUSION 12-27-2016 [facility] LEFT ANKLE N EMERGENCY [...] R11.0 Nausea 12-16-2016 R079 CHEST PAIN 12-16-2016 [facility] UNSPECIFIED [facility] R1084 GENERALIZED 12-16-2016 [facility] ABDOMINAL SERV PAIN [facility] R9431 ABNORMAL 12-16-2016 [facility] ELECTROCARD SERV IOGRAM [facility] D68.9 Coagulation [...] R490 DYSPHONIA 11-21-2016 [facility] [id number] OTH FORGEN 11-20-2016 [facility] OBJ RESP SERV TRACT UNS [facility]OUND[facility] PART ASPHX INT ENC G9340 ENCEPHALOPA 11-18-2016 [facility] THY SERV UNSPECIFIED F[facility]ATION I4581 LONG QT 11-18-2016 [facility] SYNDROME [facility] I8500 ESOPHAGEAL 11-18-2016 [facility] VARICES [facility] WITHOUT [facility] BLEEDING J90 PLEURAL 11-18-2016 [facility] EFFUSION [facility] NOT [facility] ELSEWHERE CLASSIFIED J9601 ACUTE 11-18-2016 [facility]PIRATORY SERV FAILURE [facility] WITH HYPOXIA R918 OTHER 11-18-2016 [place] [facility] NONSPECIFIC SERV ABNORMAL [facility] FINDING OF LUNG FIELD Z4682 ENCOUNTER 11-17-2016 [facility] FITTING & SERV ADJUST [facility] NON-VASCULA R CATHETER I2119 ST 11-16-2016 [place] [facility] E[facility] SERV AL INVOLV [facility]ATION OTH CORONARY ART INF WALL R000 TACHYCARDIA 11-16-2016 [facility] UNSPECIFIED [facility]ATION K2210 ULCER OF 11-14-2016 [place] [facility] ESOPHAGUS SERV WITHOUT [facility] BLEEDING E1169 TYPE 2 11-13-2016 S NURSE DIABETES PRACTITIONE MELLITUS R GR W/OTH SPEC COMPLICATIO N E8770 FLUID 11-13-2016 [place] [facility] OVERLOAD [facility] UNSPECIFIED FOUNDATION J9602 ACUTE 11-13-2016 [facility] RESPIRATORY SERV FAILURE [facility]OUND[facility] WITH HYPERCAPNIA J9811 ATELECTASIS 11-13-2016 [facility] A1286IQ OTHER 11-13-2016 [facility] POSTPROCEDU SERV RAL SHOCK FOUNDATION SUBSEQUENT ENCOUNTER R0989 OTH SPEC SX 11-12-2016 [facility] & SIGNS SERV INVLV THE FOUNDATION CIRC & RESP SYS E806 OTHER 11-11-2016 [facility] DISORDERS SERV OF [facility]OUND[facility] BILIRUBIN METABOLISM E872 ACIDOSIS 11-11-2016 [facility] E876 HYPOKALEMIA 11-11-2016 [facility] I4891 UNSPECIFIED 11-11-2016 [facility] ATRIAL SERV FIBRILLATIO FOUNDATION N I959 HYPOTENSION 11-11-2016 S NURSE DIONICIOE UNSPECIFIED R GR J849 INTERSTITIA 11-11-2016 [facility] L PULMONARY SERV DISEASE FOUNDATION UNSPECIFIED J984 OTHER 11-11-2016 [place] [facility] DISORDERS [facility] OF LUNG FOUNDATION Z452 ENCOUNTER 11-09-2016 [facility] ADJUSTMENT& SERV MGMT [facility] VASCULAR ACCESS DEVICE E875 HYPERKALEMI 11-08-2016 [facility] Javy CARLOS R GR I459 CONDUCTION 11-08-2016 [facility] DISORDER SERV UNSPECIFIED FOUNDATION K920 HEMATEMESIS 11-08-2016 [facility]ANS, [facility] K8020 CALCULUS GB 11-07-2016 [facility] W/O SERV CHOLECYSTIT FOUNDATION IS W/O OBSTRUCTION R188 OTHER 11-07-2016 [facility] ASCITES SERV [facility] Z8719 PERSONAL 11-07-2016 [facility] HISTORY SERV OTHER FOUNDATION DISEASES DIGESTIVE SYSTEM R0602 SHORTNESS 11-06-2016 [place] [facility] R531 WEAKNESS 11-06-2016 [facility], [facility] M542 CERVICALGIA 10-21-2016 [facility] M6281 MUSCLE 10-21-2016 [facility] WEAKNESS [facility] EMS R1030 LOWER 10-21-2016 [facility] ABDOMINAL SERV PAIN [facility]OUNDATION UNSPECIFIED R05 COUGH 10-09-2016 [facility] J189 PNEUMONIA 09-22-2016 [place] UNSPECIFIED MEDICAL ORGANISM IMAGING ASS Z09 ENC F/U 09-22-2016 [place] EXAM AFTR MEDICAL CMPL TX OTH IMAGING ASS THAN MALIG NEOPLSM R509 FEVER 09-19-2016 [place] UNSPECIFIED [facility]ICAL IMAGING ASS H1133 CONJUNCTIVA 07-28-2016 [facility] L N EMERGENCY HEMORRHAGE PHYS BILATERAL R030 ELEVATED 07-28-2016 [facility] BLOOD-PRESS N EMERGENCY URE READING PHYS WITHOUT DX HTN R0789 OTHER CHEST 07-28-2016 [facility] PAIN N EMERGENCY PHYS O631BVE OTHER 07-28-2016 [facility] SPECIFIED RADIOLOGY INJURIES THORAX INITIAL ENC H1032 UNSPECIFIED 07-24-2016 [place] ACUTE FAMILY CONJUNCTIVI PHYSICIANS TIS LEFT [facility] EYE H1132 CONJUNCTIVA 07-22-2016 [facility] L N EMERGENCY HEMORRHAGE PHYS LEFT EYE W259PNW CONTUSION 07-22-2016 [facility] OF N EMERGENCY ABDOMINAL PHYS WALL INITIAL ENCOUNTER E8342 HYPOMAGNESE 07-01-2016 [facility] TONI N EMERGENCY PHYS G0430 ACUTE 07-01-2016 [facility] NECROTIZING N EMERGENCY PHYS HEMORRHAGIC ENCEPHALOPA THY UNS R1110 VOMITING 06-28-2016 [facility] UNSPECIFIED SERV F[facility]ATION G4710 HYPERSOMNIA 06-11-2016 LINDA GALLO MD UNSPECIFIED CONSULTING SRV D490 NEOPLASM OF 06-07-2016 [facility] UNS SERV BEHAVIOR FOUNDATION DIGESTIVE SYSTEM K766 PORTAL 06-07-2016 [facility] HYPERTENSIO SERV N FOUNDATION R161 SPLENOMEGAL 06-07-2016 [facility] Y NOT SERV ELSEWHERE FOUNDATION CLASSIFIED G479 SLEEP 06-03-2016 [place] DISORDER [facility] R0683 SNORING 06-03-2016 [facility] R5383 OTHER 06-03-2016 [facility] J87781 PAIN IN 05-20-2016 [place] UNSPECIFIED FOOT & LIMB ANKLE CE R072 PRECORDIAL 05-16-2016 LINDA GALLO PAIN CONSULTING SRV G4733 OBSTRUCTIVE 05-02-2016 [place] SLEEP FAMILY APNEA ADULT PHYSICIANS PEDIATRIC [facility] [id number] TOX EFF OTH 04-08-2016 [facility] GASES N EMERGENCY FUMES & PHYS VAPORS ACC INITIAL ENC M545 LOW BACK 03-04-2016 [place] PAIN FAMILY PHYSICIANS [facility] R112 NAUSEA WITH 03-04-2016 [facility] UNSPECIFIED R1033 PERIUMBILIC 02-28-2016 [facility] AL PAIN N EMERGENCY PHYS R5381 OTHER 01-29-2016 [facility] MALAISE N EMERGENCY PHYS R17 UNSPECIFIED 01-26-2016 [facility] L0390 CELLULITIS 01-08-2016 [place] UNSPECIFIED FAMILY PHYSICIANS [facility] M546 PAIN IN 11-10-2015 [facility] THORACIC N EMERGENCY SPINE PHYS Q25686 MUSCLE 11-10-2015 [facility] SPASM OF N EMERGENCY BACK PHYS K6389 OTHER 09-05-2015 [facility] [place] SPECIFIED RADIOLOGY DISEASES OF INTESTINE B370 CANDIDAL 08-15-2015 [place] STOMATITIS FAMILY PHYSICIANS [facility] K222 ESOPHAGEAL 07-26-2015 [facility] OBSTRUCTION REGIONAL PHYSICIAN PRA K319 DISEASE OF 07-26-2015 [facility] STOMACH AND ANESTHESIA DUODENUM GROUP PS UNSPECIFIED K449 DIAPHRAGMAT 07-26-2015 [facility] IC HERNIA ANESTHESIA W/O GROUP PS OBSTRUCTION OR GANGRENE 4660 ACUTE 06-07-2015 [place] BRONCHITIS FAMILY PHYSICIANS [facility] 94639 ABDOMINAL 06-07-2015 [place] PAIN, FAMILY GENERALIZED PHYSICIANS [facility] 7242 LUMBAGO 06-01-2015 [facility] 7862 COUGH 06-01-2015 [facility] 97423 ABDOMINAL 06-01-2015 [facility] [place] PAIN RIGHT RADIOLOGY LOWER QUADRANT 45832 DIAB W/O 05-31-2015 [facility] COMP TYPE N EMERGENCY II/UNS NOT PHYS STATED UNCNTRL 4019 UNSPECIFIED 05-31-2015 [place] ESSENTIAL [facility] HYPERTENSIO HOSPITAL N 4549 ASYMPTOMATI 05-31-2015 [facility] 5715 CIRRHOSIS 05-31-2015 [facility]IVER [facility] WITHOUT HOSPITAL MENTION OF ALCOHOL 37134 OSTEOARTHRO 05-31-2015 [place] S UNSPEC COMMUNITY WHETHER HOSPITAL GEN/LOC UNSPEC SITE 7213 LUMBOSACRAL 05-31-2015 [facility] N EMERGENCY SPONDYLOSIS PHYS WITHOUT MYELOPATHY 12334 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 [facility] 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 31065 OTHER 05-31-2015 [place] ASCITES [facility] V5867 LONG-TERM 05-31-2015 [place] USE OF COMMUNITY INSULIN HOSPITAL V5869 LONG-TERM 05-31-2015 [place] (CURRENT) COMMUNITY USE OF HOSPITAL OTHER MEDICATIONS 34007 NAUSEA WITH 05-26-2015 [place] VOMITING [facility] 94372 ABDOMINAL 05-26-2015 [facility] PAIN RIGHT N EMERGENCY UPPER PHYS QUAD[facility]ANT 54114 ABDOMINAL 05-26-2015 [facility] PAIN, LEFT N EMERGENCY LOWER PHYS QUADRANT 79151 ABDOMINAL 05-26-2015 [facility] PAIN, N EMERGENCY EPIGASTRIC PHYS V145 PERSONAL 05-26-2015 [place] HISTORY OF COMMUNITY ALLERGY TO HOSPITAL NARCOTIC AGENT 88924 ABDOMINAL 05-04-2015 [facility] UNSPECIFIED SITE 5718 OTHER 04-12-2015 [place] CHRONIC [facility] C LIVER DISEASE 87468 UNSPEC 04-12-2015 [facility] INJURY LIVR N EMERGENCY W/O PHYS MENTION OPN WOUND IN CAV 16121 DIAB W/O 03-27-2015 [place] MENTION FAMILY COMP TYPE PHYSICIANS II/UNS TYPE PLLC UNCN[facility]L 50311 DIVERTICULI 03-27-2015 [place] TIS OF FAMILY COLON PHYSICIANS PLLC 5589 OTH&UNSPEC 03-20-2015 [facility] NONINFECTIO N PHYSICIAN US SERVI GASTROENTER ITIS&COLITI S 5723 PORTAL 03-16-2015 [facility] [place] HYPERTENSIO RADIOLOGY N 12878 ABDOMINAL 03-16-2015 [facility] PAIN, N EMERGENCY PERIUMBILIC PHYS V146 PERSONAL 03-16-2015 [place] HISTORY OF COMMUNITY ALLERGY TO HOSPITAL ANALGESIC AGENT 5289 OTHER&UNSPE 02-14-2015 [facility] CIFIED N EMERGENCY DISEASES PHYS THE ORAL SOFT TISSUES 5290 GLOSSITIS 02-14-2015 [facility] N EMERGENCY PHYS 2382 NEOPLASM OF 01-24-2015 [place] UNCERTAIN FAMILY BEHAVIOR OF PHYSICIANS SKIN PLLC 4871 INFLUENZA 10-31-2014 [facility] WITH OTHER N PHYSICIAN RESPIRATORY SERVI MANIFESTATI ONS 17387 FEVER 10-31-2014 [facility] UNSPECIFIED N PHYSICIAN SERVI 486 PNEUMONIA, 10-30-2014 [facility] ORGANISM N EMERGENCY UNSPECIFIED PHYS 53862 OBESITY, 08-24-2014 [facility] NURSE UNSPECIFIED PRACTITIONE R GR V069 NEED PROPH 07-28-2014 [facility] W/UNSPEC [facility] DEPT COMB RESHMA VACCINE 93053 DISORDER OF 07-05-2014 [facility] [place] BONE AND RADIOLOGY CARTILAGE UNSPECIFIED 7948 NONSPECIFIC 07-05-2014 [facility] [place] ABNORMAL RADIOLOGY RESULTS LIVR FUNCTION STUDY 94688 DYSFUNCTION 06-29-2014 [facility] EUSTACHIAN PRACT[facility] L TUBE 74380 SUBJECTIVE 06-29-2014 [place] TINNITUS PHYSICIAN PRACTICE L 35534 SENSORINEUR 06-29-2014 [facility] AL HEARING PHYSICIAN LOSS PRACTICE L BILATERAL 7804 DIZZINESS 06-29-2014 [facility] AND PHYS[facility]IAN GIDDINESS PRACTICE L 4561 ESOPHAGEAL 06-27-2014 [place] [facility] VARICES SERV WITHOUT FOUNDATION MENTION OF BLEEDING 3899 UNSPECIFIED 06-21-2014 [facility] HEARING PHYSICIAN LOSS PRACTICE L L03.90 CELLULITIS, [...] ia de te s n re d [place] 65 08 09 12 2 00 KE [...] ve G 79 20 20 04 [place] AL 75 17 17 96 X 9 17 [...] 80 2- 1- 00 01 UC ve AL 21 20 20 03 [place] DE 61 [...] 20 5- 4- 00 01 UC ve AL 76 20 20 02 [place] N 01 [...] 80 9- 8- 00 01 UC ve AL 21 20 20 03 [place] DE 61 [...] 20 9- 1- 00 01 UC ve AL 76 20 20 02 [place] N 01 [...] ve G 79 20 20 97 [place] AL 75 17 17 10 X 9 96 CV 75 S -2 PH 5 AR KW MA IK CY PE N LL C, DB A CV S PH AR MA CY #3 01 6 FU 00 05 06 30 30 00 KE Ac RO 37 -2 -2 .0 00 NT ti SE 80 4- 3- 00 01 UC ve AL 21 20 20 03 [place] DE 61 [...] 20 3- 3- 00 01 UC ve AL 76 20 20 02 [place] N 01 17 17 43 HC 0 90 CV L S 1, PH 00 AR 0 MA MG CY TA LL BL C, ET DB A CV S PH AR MA CY #3 01 6 AL 57 05 06 30 30 00 KE [...] PH AR MA CY #3 01 6 AL 57 04 05 30 30 00 KE [...] 20 3- 2- 00 00 UC ve AL 76 20 20 99 [place] N 01 [...] ve G 79 20 20 97 [place] AL 75 17 17 10 X 9 96 [...] PH AR MA CY #3 01 6 AL 57 03 04 30 30 00 KE [...] 20 7- 7- 00 00 UC ve AL 76 20 20 99 [place] N 01 [...] 44 7- 7- 00 26 UC ve AL 29 20 20 25 [place] DE 93 [...] 80 1- 0- 00 00 UC ve AL 20 20 20 97 [place] DE 81 [...] 00 [place] RA 30 17 17 11 AL 5 65 CV DE S PH 10 AR MA MG CY TA LL BL C, ET DB A CV S PH AR MA CY #3 01 6 AL 57 02 02 30 30 00 KE [...] 80 1- 0- 00 00 UC ve AL 20 20 20 97 [place] DE 81 17 17 66 0 62 CV 20 S PH MG AR MA TA CY BL ET LL C, DB A CV S PH AR MA CY #3 01 6 ME 68 01 02 60 30 00 KE Ac TF 38 -1 -1 .0 00 NT ti OR 20 0- 0- 00 00 UC ve AL 76 20 20 99 [place] N 01 [...] ve G 79 20 20 97 [place] AL 75 16 17 10 X 9 96 [...] Path Rev Bld -Imp (05-08-2017 02:25) Path [id number] complet Rev Bld 017 04 ed -Imp 02:25 refer to patholo gy laborat ory SCT COPATH COPATH report to follow L Bacteria Ur Cult (05-08-2017 01:09) Bacteri [id number] complet a XXX 017 06 No ed Anaerob 01:09 growth e+Aerob (qualif e Cult ier value) SCT NG1 NO GROWTH DAY 1. L CC XXX NOTAP complet VC-aCnc 017 NOT ed 01:09 APPLICA BLE L Bacteria XXX Anaerobe+Aerobe Cult (05-07-2017 23:23) Bacteri [id number] complet a XXX 017 06 No ed [...] 02:39 Cnc MDRO Wnd (01-12-2017 03:50) Bacteri [id number] complet a XXX 017 00 not ed [...] 05:18 Bacteria Ur Cult (12-16-2016 23:56) Bacteri [id number] complet a XXX 017 1 ed Anaerob [...] NOT ed 10:50 APPLICA BLE L Bacteri [id number] complet a XXX 017 06 No ed [...] 02:09 Cnc MDRO Wnd (11-11-2016 17:16) Bacteri [id number] complet a XXX 017 00 not ed [...] L Cnc MDRO Wnd (11-08-2016 13:15) Bacteri [id number] complet a XXX 017 00 not ed [...] c Bacteria Ur Cult (11-08-2016 05:05) Bacteri [id number] complet a XXX 017 06 No ed [...] Bacteria XXX Anaerobe+Aerobe Cult (11-08-2016 05:05) Bacteri [id number] complet a XXX 017 06 No ed Anaerob 05:05 growth e+Aerob (qualif e Cult ier value) SCT NGB6 NO GROWTH DAY 5. L Bacteria Bro [place] Aerobe Cult (11-08-2016 04:42) Bacteri [id number] complet a XXX 017 06 No ed [...] Bacteria Fld Aerobe Cult (11-06-2016 15:10) Bacteri [id number] complet a XXX 017 06 No ed Anaerob 15:10 growth e+Aerob (qualif e Cult ier value) SCT NG4 NO GROWTH DAY 4. L CC XXX NOTAP complet VC-aCnc 017 NOT ed 15:10 APPLICA BLE L Procedures Procedure DOS Code Location Performer Comment RADEX 93634 [place] B[place] ABDOMEN 1 7 MEDICAL SERV ANTEROPOS FOUNDATIO TERIOR N VIEW BLOOD 47749 [place] MATTHEW SMEAR 7 MEDICAL PERIPHERA SERV L INTERP FOUNDATIO PHYS N W/WRIT REPORT INITIAL [address] [place] [address] [facility] CARE/DAY PHYSICIAN ELADIO 70 SERVI MINUTES THERAPEUT 59458 [facility] IC 7 HEALTHCAR HEALTHCAR PROPHYLAC E E TIC/DX [facility] INJECTION SUBQ/IM COMPREHEN 84202 [facility] SIVE 7 [facility]ALTHCAR HEALTHCAR METABOLIC E E PANEL [facility] URNLS DIP 87059 [facility] UK 7 HEALTHCAR HEALTHCAR STICK/TAB E E LET RGNT [facility] AUTO W/O MICROSCOP Y ONDANSETR Q0162 [facility] ON 1 MG 7 HEALTHCAR HEALTHCAR ORL NOT E E EXCEED 48 [facility] HR DOSE REG BLOOD 16160 [facility] COUNT 7 HEALTHCAR HEALTHCAR COMPLETE E E AUTOMATED [facility] [place] [address] [facility] LIPASE 7 HEALTHCAR HEALTHCAR E E [facility] DIAB ONLY A5500 [facility] CENTRAL FIT CSTM 7 BRACE BRACE PREP&SPL PROSTH PROSTH SHOE MX INC INC DNSITY INSRT FOR DIAB A5513 [facility] CENTRAL ONLY MX 7 [facility]ACE DNSITY PROSTH PROSTH INSRT INC INC CSTM MOLD CSTM EA OBSERVATI 66299 [facility] ON/INPATI 7 MEDICINE [facility] E[facility] SERVICES HOSPITAL O [place] [address] [place] [address] [facility] [place] SHAY ABDOMEN & 7 RADIOLOGY III PELVIS W/O CONTRAST MATERIAL COMPREHEN 96130 [facility]LEEP [facility] SIVE [address] [place] [address] HOSPITAL PANEL BLOOD 47816 [facility]LE[facility] COUNT [address] [place] [address] HOSPITAL AUTOMATED PROTHROMB 22676 [facility] IN TIME 7 [facility] [address] DILEEP [facility] AMMONIA [address] [place] [address] PROTHROMB 52022 DILEEP [facility] IN TIME 7 [facility] OBSERVATI 42628 [facility] ON CARE 7 MEDICINE DISCHARGE SERVICES O MANAGEMEN T GLUC BLD 88528 DILEEP [facility] GLUC MNTR [address] [place] [address] CLEARED FDA SPEC HOME USE GLUC BLD 51110 DILEEP [facility] GLUC MNTR [address] [place] [address] HOSPITAL CLEARED FDA SPEC HOME USE COMPREHEN 83733 [address] [address] HOSPITAL PANEL PROTHROMB 45674 DILEEP [facility] IN TIME 7 [facility] BLOOD 13394 [place] COUNT [address] [place] [address] HOSPITAL AUTO&AUTO DIFRNTL WBC THROMBOPL 96289 DILEEP SORTOON ASTIN [address] [place] [address] HOSPITAL PARTIAL PLASMA/[place] [address] DILEEP SORTOON AMMONIA [address] [place] [address] [place] [address] DILEEP SORTOON AMMONIA [address] [place] [address] [place] [address] DILEEP FALK LIPASE [address] [place] [address] BLOOD 23724 [facility] COUNT [address] [place] [address] HOSPITAL AUTO&AUTO DIFRNTL WBC PROTHROMB 25051 DILEEP FALK IN TIME 7 [facility] COMPREHEN [address] [facility] PANEL URNLS DIP 72754 DILEEP FALK [address] [place] [address] HOSPITAL LET REAGENT AUTO MICROSCOP Y INITIAL 25976 [facility] 7 MEDICINE ON SERVICES CARE/DAY O 70 MINUTES BLD BANK 81386 [place] [facility] 7 MEDICAL DIFFC SERV CROSS FOUNDATIO MATCH&/EV N AL REP ANES 57116 [place] UPPER GI 7 MEDICAL ENDOSCOPY SERVICES PROXIMAL TO DUODENUM ESOPHAGOG 23432 [place] KEMPODMIKED 7 MEDICAL ENOSCOPY SERV TRANSORAL FOUNDATIO N DIAGNOSTI C INITIAL [address]254 [place] [address] [facility] ADRIAN CARE/DAY PHYSICIAN DECALVO 70 SERVI MINUTES BLD BANK 75084 [place] [facility] 7 MEDICAL DIFFC SERV CROSS FOUNDATIO MATCH&/EV N AL REP BLOOD [address] [address]ALK [address] [facility] AUTOMATED COMPREHEN [address] [address] [facility]PITAL PANEL RADIOLOGI 313[address] CNTR[place] C EXAM 7 RADIOLOGY CHEST 2 VIEWS FRONTAL&L ATERAL DUP-SCAN 61122 [place] [facility]ER[facility] ARTL TIMOTHY 7 MEDICAL ABDL/PEL/ SERV SCROT&/RP FOUNDATIO R ORGN N COM RADIOLOGI 28395 [place] MERHAR C EXAM 7 MEDICAL CHEST 2 SERV VIEWS FOUNDATIO FRONTAL&L N ATERAL ECG 73399 [place] NIESHA ROUTINE 7 MEDICAL ECG SERV W/LEAST FOUNDATIO 12 LDS N I&R ONLY DUP-SCAN 40627 [place] LAWANDA ARTL TIMOTHY 7 MEDICAL ABDL/PEL/ SERV SCROT&/RP FOUNDATIO R ORGN N [facility] [address] [place] DISCHARGE 7 MEDICAL DAY SERV MANAGEMEN FOUNDATIO T > 30 N MIN SBSQ 78353 [place] [facility] 7 MEDICAL CARE/DAY SERV 35 FOUNDATIO MINUTES N SWALLOWIN 16996 [place] DL G FUNCJ 7 MEDICAL W/CINERAD SERV IOGRAPY/V FOUNDATIO IDRADIOG N SBSQ 78426 [place] [facility] 7 MEDICAL CARE/DAY SERV 25 FOUNDATIO MINUTES N SBSQ 43672 [place] [facility] 7 MEDICAL CARE/DAY SERV 25 FOUNDATIO MINUTES N RADIOLOGI 66022 [place] LAYLA C 7 MEDICAL AYA EXAMINATI SERV ON CHEST FOUNDATIO SINGLE N VIEW FRONTAL ECG 96157 [place] BENSON ROUTINE 7 MEDICAL ECG SERV W/LEAST FOUNDATIO 12 LDS N I&R ONLY RADIOLOGI 93981 [place] ALANIS C 7 MEDICAL EXAMINATI SERV ON CHEST FOUNDATIO SINGLE N VIEW FRONTAL RADIOLOGI 68178 [place] ALANIS C 7 MEDICAL EXAMINATI SERV ON CHEST FOUNDATIO SINGLE N VIEW FRONTAL ECG 12289 [place] DAMIAN ROUTINE 7 MEDICAL ECG SERV W/LEAST FOUNDATIO 12 LDS N I&R ONLY CRITICAL 07590 [place] ALONDRA CARE 7 MEDICAL ILL/INJUR SERV ED FOUNDATIO PATIENT N INIT 30-74 MIN CRITICAL 86535 [place] ALONDRA CARE 7 MEDICAL ILL/INJUR SERV ED FOUNDATIO PATIENT N INIT 30-74 MIN RADIOLOGI 66562 [place] TREVON C 7 MEDICAL EXAMINATI SERV ON CHEST FOUNDATIO SINGLE N VIEW FRONTAL RADIOLOGI 48093 [place] ONEAL C 7 MEDICAL EXAMINATI SERV ON CHEST FOUNDATIO SINGLE N VIEW FRONTAL ESOPHAGOG 53781 [place] ESTHERMAGED ASTRODUOD 7 MEDICAL Y ENOSCOPY SERV TRANSORAL FOUNDATIO N DIAGNOSTI C RADEX 50344 [place] DL ABDOMEN 1 7 MEDICAL SERV ANTEROPOS FOUNDATIO TERIOR N VIEW COLONOSCO 41175 [place] ESTHERLOFSAj PY FLX DX 7 MEDICAL Y W/COLLJ SERV SPEC WHEN FOUNDATIO PFRMD N CRITICAL 13497 [place] ALONDRA CARE 7 MEDICAL ILL/INJUR SERV ED FOUNDATIO PATIENT N INIT 30-74 MIN CRITICAL 83695 [place] ALONDRA CARE 7 MEDICAL ILL/INJUR SERV ED FOUNDATIO PATIENT N INIT 30-74 MIN SBSQ [address] [facility] 7 NURSE CARE/DAY PRACTITIO 25 NER GR MINUTES DUP-SCAN 91768 [place] JESSICA ARTL TIMOTHY 7 MEDICAL ABDL/PEL/ SERV SCROT&/RP FOUNDATIO R ORGN N COM RADEX 63948 [place] DL ABDOMEN 1 7 MEDICAL SERV ANTEROPOS FOUNDATIO TERIOR N VIEW RADIOLOGI 49450 [place] TREVON C 7 MEDICAL EXAMINATI SERV ON CHEST FOUNDATIO SINGLE N VIEW FRONTAL RADIOLOGI 20102 [place] TREVON C 7 MEDICAL EXAMINATI SERV ON CHEST FOUNDATIO SINGLE N VIEW FRONTAL CRITICAL 72690 [place] ALONDRA CARE 7 MEDICAL ILL/INJUR SERV ED FOUNDATIO PATIENT N INIT 30-74 MIN CRITICAL 76787 [place] ALONDRA CARE 7 MEDICAL ILL/INJUR SERV ED FOUNDATIO PATIENT N INIT 30-74 MIN RADIOLOGI 63222 [place] ONEAL C 7 MEDICAL EXAMINATI SERV ON CHEST FOUNDATIO SINGLE N VIEW FRONTAL ECG 21246 [place] BENSON ROUTINE 7 MEDICAL ECG SERV W/LEAST FOUNDATIO 12 LDS N I&R ONLY SBSQ 96050 [facility] 7 NURSE CARE/DAY PRACTITIO 35 NER GR MINUTES RADIOLOGI 52188 [place] RONAN C 7 MEDICAL EXAMINATI SERV ON CHEST FOUNDATIO SINGLE N VIEW FRONTAL RADIOLOGI 55021 [place] RONAN C 7 MEDICAL EXAMINATI SERV ON CHEST FOUNDATIO SINGLE N VIEW FRONTAL RADEX 79938 [place] JESSICA ABDOMEN 1 7 MEDICAL SERV ANTEROPOS FOUNDATIO TERIOR N VIEW ECG 03211 [place] BENSON ROUTINE 7 MEDICAL ECG SERV W/LEAST FOUNDATIO 12 LDS N I&R ONLY RADIOLOGI 89814 [place] WYNNE C 7 MEDICAL MONA EXAMINATI SERV ON CHEST FOUNDATIO SINGLE N VIEW FRONTAL SERVICES 89736 AC QUINTERO PROVIDED 7 PHYSICIAN U BTW 10 S, PLLC PM&8 AM AT 24-HR FACI BLD BANK 49558 [place] NICOLAS PHYS SVCS 7 MEDICAL AUTHJ SERV DEVIJ FOUNDATIO STANDARD N REPRT GROUND A0425 [facility] MILEAGE 7 AMBULANCE AMBULANCE PER SERVICE SERVICE STATUTE MILE INITIAL 73119 [facility] BHANU INPATIENT 7 NURSE CONSULT PRACTITBRIELLE ARROYO/MATTIE VALDOVINOS GR PT 80 MIN AMB A0427 [facility] SERVICE 7 AMBULANCE AMBULANCE ALS SERVICE SERVICE EMERGENCY TRANSPORT LEVEL 1 AMB A0427 [facility] SERVICE 7 AMBULANCE AMBULANCE ALS SERVICE SERVICE EMERGENCY TRANSPORT LEVEL 1 GROUND A0425 [facility] AM[facility]ULANCE PER SERVICE SERVICE STATUTE MILE AMBULANCE A0429 [facility] SERVICE 7 AMBULANCE AMBULANCE BLS SERVICE SERVICE EMERGENCY TRANSPORT GROUND A0425 [facility] 7 AMBULANCE AMBULANCE PER SERVICE SERVICE STATUTE MILE SERVICES 89331 [facility] PROVIDED 7 PHYSICIAN U BTW 10 S, PLLC PM&8 AM AT 24-HR FACI RADIOLOGI 99216 [place] [facility] EXAM 7 MEDICAL CHEST 2 IMAGING VIEWS ASS FRONTAL&L ATERAL CRITICAL 13194 [facility] CARE 7 PHYSICIAN U ILL/INJUR S, PLLC ED PATIENT INIT 30-74 MIN GROUND A0425 [facility] MILEAGE 7 [facility] PER [facility] STAT[facility] EMS EMS MILE OBSERVATI 18784 [facility] ON CARE 7 MEDICINE A DISCHARGE SERVICES O MANAGEMEN T INITIAL 42304 [facility] OBSERVATI 7 MEDICINE A ON SERVICES CARE/DAY O 70 MINUTES RADIOLOGI 87410 [facility] [place] SCALF C EXAM 7 RADIOLOGY CHEST 2 VIEWS FRONTAL&L ATERAL RADIOLOGI 10320 YUNIOR FIGUEROA C EXAM 7 MEDICAL CHEST 2 IMAGING VIEWS ASS FRONTAL&L ATERAL RADIOLOGI 47457 [place] [facility] C EXAM 7 MEDICAL CHEST 2 IMAGING VIEWS ASS FRONTAL&L ATERAL GROUND A0425 [facility] AMBULANCE AMBULANCE PER SERVICE SERVICE STATUTE MILE AMB A0427 [facility] SERVICE 7 AMBULANCE AMBULANCE ALS SERVICE SERVICE EMERGENCY TRANSPORT LEVEL 1 RADEX 72653 [facility] [place] SCALF MARILIN RIBS 6 RADIOLOGY UNILATERA L 2 VIEWS COLLECTIO 33604 DILEEP FALK N VENOUS 6 [facility] VENIPUNCT URE COMPREHEN 84189 DILEEP FALK SIVE 6 [facility] PANEL PROTHROMB 30511 DILEEP FALK IN TIME 6 [facility] BLOOD 45102 DILEEP FALK COUNT 6 [facility] AUTOMATED RADEX 47458 [facility] [place] RIBS UNI 6 RADIOLOGY RHO W/POSTERO ANT [place] MINIMUM [address] [place] [address] [facility] [place] ABDOMEN & 6 RADIOLOGY RHO PELVIS W/O CONTRAST MATERIAL RADEX 69338 [facility] MATIAS RIBS 6 CLARISSA UNILATERA EMERGENCY L 2 VIEWS PHYS RADIOLOGI 65261 [facility] MATIAS C 6 CLARISSA EXAMINATI EMERGENCY ON CHEST PHYS SINGLE VIEW FRONTAL RADIOLOGI 22788 [facility] [place] LAYNE C 6 RADIOLOGY RHO EXAMINATI ON CHEST SINGLE VIEW FRONTAL ECG 96825 [facility] ARNOLD ROUTINE 6 CLARISSA LAST ECG EMERGENCY W/LEAST PHYS 12 LDS I&R ONLY ECG 71298 RI DAMIAN LASHAWN ROUTINE 6 MEDICAL ECG SERV W/LEAST FOUNDATIO 12 LDS N I&R ONLY RADIOLOGI 88144 [place] DAGO HOGAN C EXAM 6 MEDICAL MARY KATE CHEST 2 SERV VIEWS FOUNDATIO FRONTAL&L N ATERAL HEMOGLOBI 91390 KMS[facility] JIM N 6 NURSE REGINALD GLYCOSYLA PRACTITIO DANE A1C NER GR POLYSOM 31310 LINDA GALLO GALLO LINDA 6/>YRS 6 MD SLEEP 4/> CONSULTIN ADDL G SRV SYBIL ATTND MRI 16077 [place] BURGOS JENNIFER ABDOMEN 6 MEDICAL W/O & SERV W/CONTRAS FOUNDATIO T N MATERIAL POLYSOM 41846 DILEEP SORTOON 6/>YRS 6 [facility] SLEEP 4/> HOSPITAL HOSPITAL ADDL SYBIL ATTND COMPREHEN 83315 DILEEP FALK SIVE 6 [facility] PANEL COLLECTIO 02403 [facility] FALK N VENOUS 6 [facility] VENIPUNCT URE BLOOD 32918 [facility] 6 [facility] AUTOMATED PROTHROMB 29492 DILEEP FALK IN TIME 6 [facility] ECHO 23273 LINDA GALLO GALLO LINDA TTHRC R-T 6 2D CONSULTIN W/WOM-MOD G SRV E COMPL SPEC&COLR D COLLECTIO 06230 MANUEL ARNDT JAMIE N VENOUS 6 FAMILY BLOOD PHYSICIAN VENIPUNCT S PLLC URE COMPREHEN [address] SIVE 6 [facility] PANEL INITIAL 62095 [facility] OBSERVATI 6 CL[place]ISSA ISIDRA ON PHYSICIAN CARE/DAY SERVI 30 MINUTES RADIOLOGI 72195 [facility] [place] SHAY C 6 RADIOLOGY III MARY KATE EXAMINATI ON CHEST SINGLE VIEW FRONTAL RADIOLOGI 34116 [facility] SW[facility] C 6 CLARIS[place] PAT EXAMINATI EMERGENCY ON CHEST PHYS SINGLE VIEW FRONTAL RADIOLOGI 11279 [facility] [place] SCALF MARILIN C EXAM 6 RADIOLOGY CHEST 2 VIEWS FRONTAL&L ATERAL ECG 47794 [facility] SWINE[facility] ROUTINE 6 CLARISSA PAT ECG EMERGENCY W/LEAST PHYS 12 LDS I&R ONLY COLLECTIO 92121 [facility] UNIVERS N VENOUS 6 Y Y BLOOD [facility] VENIPUNCT URE HEPATITIS 27954 [facility] B SURF 6 [facility] HBSAB GENERAL 51695 [facility] HEALTH 6 Y Y PANEL [facility] BLOOD 69403 [facility] COUNT 6 Y Y RETICULOC [facility] YTES AUTO 1/> CELL ISACC ANTINUCLE 69836 [facility] AR 6 Y Y ANTIBODIE [facility] [place] [address] [facility] IRON 6 [place] [address] [facility] FREE 6 Y Y [facility] [place] [address] [facility] HAPTOGLOB 6 Y Y IN [facility] QUANTITAT NAIF CERULOPLA 08760 [facility] SMIN 6 [place] [address] [facility] FOLIC 6 Y Y ACID RBC [facility] [place] [address] [facility] FERRITIN 6 Y Y [facility] IMMUNOASS 61382 [facility] AY 6 Y Y ANALYTE [facility] QUAL/SEMI QUAL MULTIPLE STEP COLD 71741 [facility] AGGLUTINI 6 Y Y N TITER [facility] HEPATITIS 53904 [facility] A 6 Y Y ANTIBODY [facility] [place] [address] [facility] GAMMAGLOB 6 Y Y ULIN IGA [facility] IGD IGG IGM EACH LACTATE 59194 [facility] DEHYDROGE 6 Y Y [place] [address] [facility] SCALF MARILIN ABDOMEN & 5 RADIOLOGY PELVIS W/CONTRAS T MATERIAL ESOPHAGOG 26741 DAYNA TURENR ASTRODUOD [address] [place] [address] GRE ENOSCOPY PHYSICIAN TRANSORAL PRA DIAGNOSTI C ANES 75493 [place] UPPER GI 5 ANESTHESI ENDOSCOPY A GROUP PROXIMAL PS TO DUODENUM GLUC BLD 46492 [facility] GALOMETROPOLITAN [facility] CENTERJOCELYNN GLUC MNTR [address] [place] [address] CLEARED FDA SPEC HOME USE HI OSM Q9963 DILEEP FALK CONTRST [address] [place] [address] 350-399 MG/ML IODINE CONC ML URNLS DIP 23357 [facility]NN [address]ALO[address] [facility] HOSPITAL LET REAGENT AUTO MICROSCOP Y COMPREHEN 85133 [facility] FALK SIVE [address] [place] [address] HOSPITAL PANEL ONDANSETR Q0162 [facility]OM[facility]ROPOL[facility] CENTERJOCELYNN ON [address] [place] [address] OR NOT HOSPITAL HOSPITAL EXCEED 48 HR DOSE REG RADEX 62306 [facility] [place] SPINE 5 RADIOLOGY RHO LUMBOSACR AL 2/[address] [place] [address] [facility] [place] ABDOMEN & 5 RADIOLOGY RHO PELVIS W/O CONTRAST MATERIAL RADIOLOGI 56686 [facility] [place]AY[place] C 5 RADIOLOGY RHO EXAMINATI ON CHEST SINGLE VIEW FRONTAL IAADIADOO 65742 DILEEP SORTOON 5 [facility] [address] DILEEP FALK AMYLASE 5 [facility] [place] [address] DILEEP FALK LIPASE 5 [facility] BLOOD 27399 DILEEP FALK COUNT [address] [place] [address] HOSPITAL AUTO&AUTO DIFRNTL WBC COLLECTIO 72606 DILEEP FALK N VENOUS 5 [facility] VENIPUNCT URE COLLECTIO 35552 DILEEP FALK N VENOUS 5 [facility] VENIPUNCT URE COMPREHEN 92344 DILEEP FALK SIVE [address] [place] [address] HOSPITAL PANEL URNLS DIP 66752 DILEEP FALK [address] [place] [address] [facility] HOSPITAL LET REAGENT AUTO MICROSCOP Y INJECTION J1885 DILEEP FALK [address] [place] [address] [facility] TROMETHAM INE PER 15 MG BLOOD 93588 DILEEP FALK COUNT [address] [place] [address] HOSPITAL AUTO&[place] [address] DILEEP FALK LIPASE [address] [place] [address] [place] [address] [facility] LIPASE 5 Y Y HOSPITAL HOSPITAL INJECTION J2405 [facility] 5 Y Y [facility] ON HCL PER 1 [place] [address] [facility] LACTATE 5 Y Y HOSPITAL HOSPITAL BLOOD 93555 [facility] COUNT 5 Y Y COMPLETE HOSPITAL HOSPITAL AUTO&[place] [address] [facility] ABDOMINAL 5 Y Y REAL HOSPITAL HOSPITAL TIME W/IMAGE DOCUMENTA TION COMPREHEN 33250 [facility] PANEL THER 31085 [facility] PROPH/DX 5 Y Y NJX IV HOSPITAL HOSPITAL PUSH SINGLE/1S T SBST/[place] [address] DILEEP FALK ABDOMINAL [address] [place] [address] REAL [facility]PITAL HOSPITAL TIME W/[place] [address] [facility] [place] ABDOMINAL 5 RADIOLOGY RHO REAL TIME W/IMAGE LIMITED INJECTION J1170 [facility] [address]ALO[address] JEANNINE UP TO 4 MG INJECTION J2405 [facility] GALO[address] ON HCL PER 1 MG HOSPITAL 90879 [facility] DISCHARGE 5 CLARISSA EDGAR IGN DAY PHYSICIAN MANAGEMEN SERVI T 30 MIN/< SBSQ 27353 [facility] 5 CLARISSA HUG CARE/DAY PHYSICIAN 25 SERVI MINUTES SBSQ 73151 [place] [address] CL[place] HUG CARE/DAY PHYSICIAN 35 SERVI MINUTES INITIAL 01649 [facility] 5 CLARISSA A GOP CARE/DAY PHYSICIAN [address] [place] [address] [facility] [place] WEBBER ABDOMEN & 5 RADIOLOGY RAY PELVIS W/O CONTRAST MATERIAL COLLECTIO 32145 MANUEL GREEN JAMIE N VENOUS 5 FAMILY BLOOD PHYSICIAN VENIPUNCT S PLLC URE COMPREHEN [address] SIVE 5 [facility] [place] [facility] PANEL HEMOGLOBI [address] N 5 GROUP GROUP GLYCOSYLA [facility] [place] [facility] [place] DANE A1C CYANOCOBA [address]124 [address] NAHOMI 5 GROUP GROUP VITAMIN [facility] [place] [facility] [place] B-12 BLOOD 68606 [address] COUNT 5 GROUP GROUP COMPLETE [facility] [place] [facility] AUTO&[place] [address] DILEEP FALK LIPASE [address] [place] [address] GLUC BLD 03231 DILEEP FALK GLUC MNTR 5 [facility] CLEARED FDA SPEC HOME USE COMPREHEN 98344 DILEPE FALK SIVE [address] [place] [address] PANEL COLLECTIO 26928 DILEEP FALK N VENOUS [address] [place] [address] VENIPUNCT URE PRESSURIZ 70856 DILEEP FALK ED/NONPRE [address] [place] [address] HOSPITAL INHALATIO N TREATMENT INITIAL 47609 [facility] OBSERVATI 5 CLARISSA EDGAR IGN ON PHYSICIAN CARE/DAY SERVI 70 MINUTES COMPREHEN 94705 [facility] SIVE 5 [facility] PANEL GLUC BLD 55350 [facility] GLUC MNTR 5 [facility] CLEARED FDA SPEC HOME USE BLOOD 94917 [place] [facility] PET COUNT 5 [facility] [id number] [facility] OBSERVATI [address] [place] [address] ON HOSPITAL HOSPITAL SERVICE PER HOUR NATRIURET 90906 [facility] IC [address] [place] [address] [facility] [place] [address] [facility] LIPASE [address] [place] [address] [place] [address] [facility] AMYLASE [address] [place] [address] HOSPITAL IAADIADOO [address] [facility] GLUC BLD 76048 [facility] GLUC MNTR 5 [facility] CLEARED FDA SPEC HOME USE CULTURE 13766 [facility] BACTERIAL [address] [place] [address] BLOOD [facility] HOSPITAL AEROBIC W/ID ISOLATES IAADIADOO [address] [facility] CCUS GROUP A GENERAL [address] HOSPITAL URNLS DIP [address] [facility] HOSPITAL LET REAGENT AUTO MICROSCOP Y NONINVASI 76540 [facility] VE [address] [place] [address] E[facility]ULSE [facility] HOSPITAL OXIMETRY SINGLE DETER RADIOLOGI 56594 [facility] C EXAM [address] [place] [address] CHEST 2 HOSPITAL HOSPITAL VIEWS FRONTAL&L ATERAL HEMOGLOBI 63808 [facility] JOSE ANTONIO LUISA N 4 NURSE PETER VELA A1C NER GR IM ADM 59745 [facility] PRQ ID 4 [facility] DISTRICT SUBQ/IM HLTH DEPT HLTH DEPT NJXS EA RESHMA RESHMA VACCINE HEPA 82105 [facility] VACCINE 4 [facility] DISTRICT ADULT HLTH DEPT HLTH DEPT DOSE FOR RESHMA RESHMA INTRAMUSC ULAR USE IM ADM 59072 [facility] PRQ ID 4 DISTRICT DISTRICT SUBQ/IM HLTH DEPT HLTH DEPT NJXS 1 RESHMA RESHMA VACCINE HEPB 60817 [facility] VACCINE 4 [facility] DISTRICT ADULT 3 HLTH DEPT HLTH DEPT DOSE RESHMA RESHMA SCHEDULE FOR IM USE RADEX 49370 [facility] [place] ABDOMEN 4 RADIOLOGY RHO COMPL W/DCBTS&/ ERC VIEWS DXA BONE 01802 [facility] DENSITY 4 [facility] STUDY 1/> [place]OSP[place] [address] [facility] [facility] ABDOMINAL 4 [facility] HOSPITAL TIME W/IMAGE DOCUMENTA TION COMPRE 01580 [facility] SET AUDIOMETR 4 PHYSICIAN Y PRACTICE THRESHOLD L EVAL SP RECOGNIJ TYMPANOME 27208 [facility] SET TRY 4 PHYSICIAN PRACTICE L HEPATITIS 78833 [facility] B SURF 4 Y Y ANTIBODY [facility] HBSAB PROTHROMB 36215 [facility] IN TIME Y Y [facility]OSPITAL [facility] HEPATITIS 57004 [facility] A 4 Y Y ANTIBODY [facility] HAAB Encounters Encounter Start End Date Code Location Performer Type Date EMERGENCY 18540 [facility] DEPT 7 7 CL[place] VISIT EMERGENCY HIGH PHYS SEVERITY& THREAT FUN EMERGENCY 10426 [facility] 7 7 CLARISSA DEPARTMEN EMERGENCY T VISIT PHYS HIGH/URGE NT SEVERITY EMERGENCY 04305 [facility] DEPT 7 7 MEDICAL VISIT SERV HIGH FOUNDATIO SEVERITY& N THREAT [facility] - 7 7 [facility] EMERG[facility] 95235 [facility] KERRIE 7 7 MEDICAL M DEPARTMEN SERV T VISIT FOUNDATIO HIGH/URGE N NT SEVERITY EMERGENCY 27064 [facility] DEPT 7 7 CL[place]IS[place] VISIT EMERGENCY HIGH PHYS SEVERITY& THREAT [facility] [place] [address] 7 [facility] [place] - 7 7 [facility] T EMERGENCY 47649 [place] DEPT 7 7 [facility]ITY VISIT HOSPITAL HIGH SEVERITY& THREAT FUNJ EMERGENCY 99436 [facility] 7 7 MEDICAL VISIT SERV HIGH FOUNDATIO SEVERITY& N THREAT FUNJ OFFICE 82541 [facility] 7 7 FAMILY T VISIT PHYSICIAN 15 S PLLC MINUTES EMERGENCY 48623 [facility] 7 7 CLARISSA DEPARTMEN EMERGENCY T VISIT PHYS HIGH/URGE NT SEVERITY HOSPITAL - 7 7 [facility] EMERGENCY 63461 [facility] 7 7 MEDICAL VISIT SERV HIGH FOUNDATIO SEVERITY& N THREAT [facility] [place] - 7 7 [facility] EMERGENCY 87332 [facility] 7 7 CLARISSA DEPARTMEN EMERGENCY T VISIT PHYS HIGH/URGE NT SEVERITY EMERGENCY 30699 [facility] 7 7 CLARISSA VISIT EMERGENCY HIGH PHYS SEVERITY& THREAT FUNJ EMERGENCY 68194 [facility] 7 PHYSICIAN U VISIT S, PLLC HIGH SEVERITY& THREAT FUNJ OFFICE 63905 [facility] CLAIMS COORDINATOR CONSULTAT 7 7 MEDICAL ION SERV NEW/ESTAB FOUNDATIO PATIENT N 80 MIN EMERGENCY 36391 [facility] ROSENBAUM 7 7 MEDICAL DEPARTMEN SERV T VISIT FOUNDATIO MODERATE N SEVERITY EMERGENCY 85546 [facility] JOSEFAKAN DEPT 7 7 [place] VISIT EMERGENCY HIGH PHYS SEVERITY& THREAT FUNJ EMERGENCY 20925 [facility] 6 6 CLARISSA DEPARTMEN EMERGENCY T VISIT PHYS HIGH/URGE NT SEVERITY EMERGENCY 20265 [facility] 6 6 CLARISSA PAT DEPARTMEN EMERGENCY T VISIT PHYS HIGH/URGE NT SEVERITY [facility]OSPITAL [place] - 6 6 [facility] T OFFICE [address] [facility] 6 6 FAMILY T VISIT PHYSICIAN 15 S PLLC MINUTES EMERGENCY 31422 [facility] MATIAS DEPT 6 6 CL[place]ISSA VISIT EMERGENCY HIGH PHYS SEVERITY& THREAT FUNCJ EMERGENCY 05537 [facility] ARNOLD DEPT 6 6 CLARISSA LAST VISIT EMERGENCY HIGH PHYS SEVERITY& THREAT FUNCJ EMERGENCY [address] 6 6 MEDICAL DEPARTMEN SERV T VISIT FOUNDATIO LOW/MODER N SEVERITY OFFICE 14030 [facility] 6 6 NURSE REGINALD T VISIT PRACTITIO 25 NER GR MINUTES EMERGENCY 17430 [facility] 6 6 CLARISSA PAT DEPARTMEN EMERGENCY T VISIT PHYS HIGH/URGE NT SEVERITY [facility]OSPITAL [facility] 6 6 [facility] T HOSPITAL [place] - 6 6 [facility] T OFFICE 90287 [facility] 6 6 FOOT & T NEW 30 ANKLE CE MINUTES OFFICE 56573 MANUEL ARNDT [facility] [place] [facility] 6 6 FAMILY T VISIT PHYSICIAN 15 S PLLC MINUTES EMERGENCY 12441 [facility] DIAMOND INA 6 6 MEDICAL DEPARTMEN SERV T VISIT FOUNDATIO MODERATE N SEVERITY EMERGENCY 67869 [facility] DEPT 6 6 CLARISSA KATHY VISIT EMERGENCY HIGH PHYS SEVERITY& THREAT FUNCJ OFFICE 97156 [facility]EL [facility] DEPARTMENT 6 6 FAMILY T VISIT PHYSICIAN 25 S PLLC MINUTES EMERGENCY 60522 [facility] DEPT 6 6 CLARISSA PAT VISIT EMERGENCY HIGH PHYS SEVERITY& THREAT FUNCJ EMERGENCY 51314 [facility] DEPT 6 6 CLARISSA KATHY VISIT EMERGENCY HIGH PHYS SEVERITY& THREAT FUNCJ OFFICE 23342 [facility] 6 6 Y OF RTHY JERRY T VISIT MATH[place] 15 HOSPI MINUTES OFFICE [address] [facility] 6 6 FAMILY T VISIT PHYSICIAN 15 S PLLC MINUTES EMERGENCY 28721 [facility] 6 6 CLARISSA PAT DEPARTMEN EMERGENCY T VISIT PHYS HIGH/URGE NT SEVERITY HOSPITAL [facility] - 6 6 [facility] 30025 [facility] FAMILY T VISIT PHYSICIAN 15 S PLLC MINUTES OFFICE [address] [facility] 5 5 FAMILY T VISIT PHYSICIAN 25 S PLLC MINUTES OFFICE [address] [facility] 5 5 FAMILY T VISIT PHYSICIAN 15 S PLLC MINUTES [facility] 5 [facility] T EMERGENCY 18336 [place] 5 5 [facility] T VISIT HIGH/URGE NT SEVERITY EMERGENCY 04441 [facility] 5 5 CLARISSA COLLINS VISIT EMERGENCY HIGH PHYS SEVERITY& THREAT FUNCJ EMERGENCY 33744 [place] 5 5 [facility] T VISIT HIGH/URGE NT SEVERITY [facility] 5 5 [facility] T HOSPITAL UNIVERSIT [facility] 5 5 [facility] T EMERGENCY 61428 [facility] 5 5 [facility] SERV T VISIT FOUNDATIO MODERATE N SEVERITY EMERGENCY 89686 [facility] 5 5 [facility] T VISIT [facility]IGH/URGE NT SEVERITY [facility] - 5 5 [facility] T OFFICE [address] [facility] 5 5 FAMILY T VISIT PHYSICIAN 25 S PLLC MINUTES EMERGENCY 09986 [place] 5 5 [facility] HOSPITAL T VISIT MODERATE SEVERITY [facility] [place] - 5 5 [facility] T EMERGENCY 16296 [facility] B[facility] 5 5 CLARISSA DEPARTMEN EMERGENCY T VISIT PHYS HIGH/URGE NT SEVERITY OFFICE 64093 MANUEL GREEN JAMIE OUTPATIEN 5 5 FAMILY T VISIT PHYSICIAN 15 S PLLC MINUTES HOSPITAL [place] - 5 5 [facility] EMERGENCY 07132 [facility] 5 5 CLARISSA COLLINS VISIT EMERGENCY HIGH PHYS SEVERITY& THREAT FUN OFFICE 14864 MANUEL GREEN JAMIE OUTPATIEN 5 5 FAMILY T VISIT PHYSICIAN 15 S PLLC MINUTES EMERGENCY 59075 [facility] 5 5 CLARISSA PAT DEPARTMEN EMERGENCY T VISIT PHYS HIGH/URGE NT SEVERITY EMERGENCY 67848 [place] 5 5 [facility] HOSPITAL T VISIT MODERATE SEVERITY [facility] [place] - 5 5 [facility] T OFFICE 83500 MANUEL RODRIGUEZF OUTPATIEN 5 5 FAMILY T VISIT PHYSICIAN 15 S PLLC MINUTES EMERGENCY 99117 [facility] DEPT 5 5 CLARISSA THO VISIT EMERGENCY HIGH PHYS SEVERITY& THREAT [facility] [place] - 5 5 [facility] T OFFICE 68411 [facility] JOSE ANTONIO LUISA OUTPATIEN 4 4 NURSE T NEW 45 PRACTITIO MINUTES NER GR OFFICE 86951 MANUEL GREEN JAMIE OUTPATIEN 4 4 FAMILY T VISIT PHYSICIAN 15 S PLLC MINUTES OFFICE 31796 MANUEL GREEN JAMIE OUTPATIEN 4 4 FAMILY T VISIT PHYSICIAN 25 S PLLC MINUTES EMERGENCY 95924 [facility] DEPT 4 4 CLARISSA MUH VISIT EMERGENCY HIGH PHYSI SEVERITY& THREAT [facility] DILEEP - 4 4 [facility] T OFFICE [id number] [facility] PHYSICIAN LES T VISIT PRACTICE 15 L MINUTES OFFICE [id number] [facility] [place] 4 4 MEDICAL BELLA T VISIT SERV 25 FOUNDATIO MINUTES [facility] - 4 4 [facility] T OFFICE [id number] DILEEP [facility] CONSULTAT 4 4 PHYSICIAN KALI ION PRACTICE NEW/ESTAB L PATIENT 40 MIN OFFICE [id number] MANUEL AYALA OUTPATI 4 4 FAMILY T VISIT PHYSICIAN 15 S PLLC MINUTES
--- OUTSIDE RECORDS SUMMARY | 2017-06-14 12:34 | External Medical Summary Rpt ---
Author Author , UNIQUE CALHOUN Address Unknown Phone [email or web address] Providers Care Buckle Attaching Machine Operator Name Role Phone SIMONE CADET, SIMONE CHICHI Unavailable Unavailable ARNOLD, ARNOLD Unavailable Unavailable ARNOLD LAST, ARNOLD Unavailable Unavailable LAST EDUARDO LES, EDUARDO Unavailable Unavailable LES LAYTON, LAYTON Unavailable Unavailable AVALLONE, AVALLONE Unavailable Unavailable BEINEKE, BEINEKE Unavailable Unavailable PULIDO, PULIDO Unavailable Unavailable [facility] Unavailable Unavailable [facility], [facility] PHYSICIAN Unavailable Unavailable PRACTICE L, [facility], [facility] Unavailable Unavailable [facility] Unavailable Unavailable SERVICE, [facility] MICHAEL EDGAR, MICHAEL Unavailable Unavailable EDGAR MICHAEL EDGAR IGN, Unavailable Unavailable MICHAEL EDGAR IGN CELLAROSI - YORBA Unavailable Unavailable PAT, CELLAROSI - YORBA PAT [facility] Unavailable Unavailable INC, [facility] Unavailable Unavailable INC, [facility] CHANDEL, CHANDEL Unavailable Unavailable CHANDEL COLLINS, CHANDEL Unavailable Unavailable COLLINS CHESTNUT, CHESTNUT Unavailable Unavailable [facility] Unavailable Unavailable PHYSICIAN PRA, [facility], Unavailable [...] Unavailable SERVICES O, [facility] BANKING OFFICER, BANKING OFFICER Unavailable Unavailable SHAY III, SHAY Unavailable Unavailable III SHAY III MARY KATE, Unavailable Unavailable SHAY III MARY KATE [facility] Un[facility] Unavailable GROUP PS, [facility] Unavailable Unavailable [facility], [facility] MATTHEW, MATTHEW Unavailable Unavailable [facility] N[facility]SE Unavailable Unavailable PRACTITIONER GR, [facility] PRACTITIONER GR [facility], Unavailable Unavailable [facility] BRANDAN PET, BRANDAN PET Unavailable Unavailable BENSON, BENSON Unavailable Unavailable [facility], Unavailable [facility]available [facility] JESSICA, JESSICA Unavailable Unavailable [place] [...] CONSULTING SRV, LINDA GALLO MD CONSULTING SRV [facility] Unavailable Unavailable EMS, [facility] Unavailable [facility]available EMS, [facility] EMS [facility] Unavailable [facility]available PH[facility]IC[facility]ANS PLL[facility], [facility]ANS [facility], Unavailable Unavailable PLLC, [facility], [facility], Unavailable Unavailable [facility] [...] Unavailable [facility] Un[facility] Unavailable Unavailable PHYSICIAN SERVI, [facility] WEBBER, WEBBER Unavailable Unavailable WEBBER RAY, WEBBER Unavailable Unavailable RAY SWINEY PAT, SWINEY Unavailable Unavailable PAT FLORENCIO TER, FLORENCIO TER Unavailable Unavailable [facility] Unavailable Unavailable HOSPITALS, [facility], Unavailable Unavailable [facility] Unavailable [facility], [facility] BRENNAN MARY KATE, BRENNAN Unavailable Unavailable MARY KATE JIM REGINALD, JIM Unavailable Unavailable REGINALD ALANIS, ALANIS Unavailable Unavailable [facility] Unavailable Unavailable DEPT RES[facility], [facility] Unavailable Unavailable [facility], [facility] NICOLAS VALENZUELA Unavailable Unavailable INDUINDU GIMENEZ Unavailable Unavailable ZAGUROVSKAYA, Unavailable Unavailable ZAGUROVSKAYA OLGA, OLGA Unavailable Unavailable Purpose Continuity of Care Document - 06-16-2014 through 2016 Problems Code Diagnosis DOS Provider Status D539 NUTRITIONAL 05-08-2017 [facility]PEC[facility] D696 THROMBOCYTO 05-08-2017 [facility] PENIA [facility] UNSPECIFIED FOUNDATION R109 UNSPECIFIED 05-08-2017 [facility] ABDOM[facility]AL SERV PAIN [facility] R140 ABDOMINAL 05-08-2017 [facility] DISTENSION SERV GASEOUS F[facility]ATION K7581 NONALCOHOLI 05-06-2017 [facility] C N EMERGENCY STEATOHEPAT PHYS ITIS R1031 RIGHT LOWER 04-30-2017 [facility] QUADRANT N EMERGENCY PAIN PHYS E119 TYPE 2 03-31-2017 [facility] DIABETES N [...] BRACE MELLITUS PROSTH INC W/UNS COMPLICATIO NS K8590 ACUTE 03-02-2017 [facility] PANCREATITI N EMERGENCY S WO PHYS NECROSIS/IN FECTION UNSPEC R1011 RIGHT UPPER 03-02-2017 [facility] PAIN I10 ESSENTIAL 02-14-2017 [facility] PRIMARY MEDICINE HYPERTENSIO SERVICES O N K7200 ACUTE AND 02-14-2017 [facility]OSPITAL SUBACUTE MEDICINE HEPATIC SERVICES O FAILURE WITHOUT COMA R51 HEADACHE 02-14-2017 [facility] Z794 FPC 02-14-2017 [facility] CURRENT USE [facility] Z7984 FPC 02-14-2017 [facility] USE OF ORAL [facility] HYPOGLYCEMI C DRUGS Z9119 PATIENTS 02-14-2017 [facility] NONCOMPLIAN [facility] CE W/OTH HOSPITAL MED TX & REGIMEN D649 ANEMIA 01-31-2017 [facility] UNSPECIFIED SERV [facility]OUNDATION K922 GASTROINTES 01-30-2017 [facility] TINAL SERV HEMORRHAGE FOUNDATION UNSPECIFIED E1165 TYPE 2 01-29-2017 [facility] DIABETES FAMILY MELLITUS PHYSICIANS WITH PLLC HYPERGLYCEM IA G98427 PAIN IN 01-29-2017 [facility] RIGHT FOOT [facility]ILY PH[facility] PLL[facility] U56408 PAIN IN 01-29-2017 [facility] LEFT FOOT [facility] PH[facility]IC[facility]ANS PLLC R600 LOCALIZED 01-26-2017 [facility] EDEMA N EMERGENCY PHYS R739 HYPERGLYCEM 01-26-2017 [facility] IA N EMERGENCY UNSPECIFIED PHYS D62 ACUTE 01-15-2017 [facility] POSTHEMORRH SERVICES AGIC ANEMIA K209 ESOPHAGITIS 01-15-2017 [facility] UNSPECIFIED K921 MELENA 01-15-2017 [facility] D509 IRON 01-12-2017 [facility] DEFICIENCY N PHYSICIAN ANEMIA SERVI UNSPECIFIED I160 HYPERTENSIV 01-12-2017 [facility] E URGENCY N PHYSICIAN SERVI K219 GASTRO-ESOP 01-12-2017 [facility] H REFLUX N PHYSICIAN DISEASE SERVI WITHOUT ESOPHAGITIS N179 ACUTE 01-12-2017 [facility] UNSPECIFIED Z7682 AWAITING 01-12-2017 [facility] STATUS R61931 EFFUSION 12-27-2016 [facility] RIGHT ANKLE N EMERGENCY PHYS I52571 EFFUSION 12-27-2016 [facility] LEFT ANKLE N EMERGENCY PHYS N390 URINARY 12-20-2016 [facility] TRACT N EMERGENCY INFECTION PHYS SITE NOT SPECIFIED R0609 OTHER FORMS 12-20-2016 [facility] [place] OF DYSPNEA RADIOLOGY R110 NAUSEA 12-20-2016 [facility] N EMERGENCY PHYS R079 CHEST PAIN 12-16-2016 [facility] U[facility]PECIF[facility] SERV [facility] R1084 GENERALIZED 12-16-2016 [facility] ABDOMINAL SERV PAIN [facility] R9431 ABNORMAL 12-16-2016 [facility] ELECTROCARD SERV IOGRAM FOUNDATION I8501 ESOPHAGEAL 11-22-2016 [facility] VARICES [facility] WITH [facility]ATION BLEEDING R1310 DYSPHAGIA 11-22-2016 [facility] UNSPEC[facility] SERV [facility] Z0189 ENCOUNTER 11-22-2016 [facility] OTHER SERV SPECIFIED [facility] SPECIAL EXAMINATION S K228 OTHER 11-21-2016 [facility] SPECIFIED SERV DISEASES OF FOUNDATION ESOPHAGUS R490 DYSPHONIA 11-21-2016 [facility] Q84637V OTH FORGEN 11-20-2016 [facility] OBJ RESP SERV TRACT UNS [facility] PART ASPHX INT ENC G9340 ENCEPHALOPA 11-18-2016 [facility] THY SERV UNSPECIFIED FOUNDATION I4581 LONG QT 11-18-2016 [facility] SYNDROME SERV [facility] I8500 ESOPHAGEAL 11-18-2016 [facility] WITHOUT [facility] BLEEDING J90 PLEURAL 11-18-2016 [facility] EFFUSION [facility] NOT FOUNDATION ELSEWHERE CLASSIFIED J9601 ACUTE 11-18-2016 [facility]PIRAT[facility] SERV FAILURE [facility] WITH HYPOXIA R918 OTHER 11-18-2016 [facility] NONSPECIFIC SERV ABNORMAL [facility] FINDING OF LUNG FIELD Z4682 ENCOUNTER 11-17-2016 [facility] FITTING & SERV ADJUST FOUNDATION NON-VASCULA R CATHETER I2119 ST 11-16-2016 [facility] ELEVATION SERV NV INVOLV [facility]OUNDATION OTH CORONARY ART INF WALL R000 TACHYCARDIA 11-16-2016 [facility] UNSPECIFIED [facility] K2210 ULCER OF 11-14-2016 [facility] ESOPHAGUS SERV WITHOUT FOUNDATION BLEEDING E1169 TYPE 2 11-13-2016 S NURSE DIABETES PRACTITIONE MELLITUS R GR W/OTH SPEC COMPLICATIO N E8770 FLUID 11-13-2016 [facility] OVERLOAD SERV UNSPECIFIED FOUNDATION J9602 ACUTE 11-13-2016 [facility]AT[facility] SERV FAILURE [facility] WITH HYPERCAPNIA J9811 ATELECTASIS 11-13-2016 [facility] R6120BQ OTHER 11-13-2016 [facility] POSTPROCEDU SERV RAL SHOCK FOUNDATION SUBSEQUENT ENCOUNTER R0989 OTH SPEC SX 11-12-2016 [facility] & SIGNS SERV INVLV THE FOUNDATION CIRC & RESP SYS E806 OTHER 11-11-2016 [facility] DISORDERS SERV OF [facility] BILIRUBIN METABOLISM E872 ACIDOSIS 11-11-2016 [facility] E876 HYPOKALEMIA 11-11-2016 [facility] I4891 UNSPECIFIED 11-11-2016 [facility] ATRIAL [facility] FIBRILLATIO FOUNDATION N I959 HYPOTENSION 11-11-2016 [facility] NURSE PRACTITIONE UNSPECIFIED R GR J849 INTERSTITIA 11-11-2016 [facility] L PULMONARY SERV DISEASE FOUNDATION UNSPECIFIED J984 OTHER 11-11-2016 [facility] DISORDERS SERV OF LUNG FOUNDATION Z452 ENCOUNTER 11-09-2016 [facility] ADJUSTMENT& SERV MGMT FOUNDATION VASCULAR ACCESS DEVICE E875 HYPERKALEMI 11-08-2016 S NURSE Javy Whitney GR I459 CONDUCTION 11-08-2016 [facility] DISORDER SERV UNSPECIFIED FOUNDATION K920 HEMATEMESIS 11-08-2016 [facility] K8020 CALCULUS GB 11-07-2016 [facility] W/O SERV CHOLECYSTIT FOUNDATION IS W/O OBSTRUCTION R188 OTHER 11-07-2016 [facility] ASCITES SERV [facility] Z8719 PERSONAL 11-07-2016 [facility] HISTORY SERV OTHER FOUNDATION DISEASES DIGESTIVE SYSTEM R0602 SHORTNESS 11-06-2016 [facility] R531 WEAKNESS 11-06-2016 [facility] M542 CERVICALGIA 10-21-2016 [facility] M6281 MUSCLE 10-21-2016 [facility] R1030 LOWER 10-21-2016 [facility] ABDOMINAL SERV PAIN FOUNDATION UNSPECIFIED R05 COUGH 10-09-2016 [facility] J189 PNEUMONIA 09-22-2016 [place] U[facility]PEC[facility]IED MED[facility] ORGANISM IMAGING ASS Z09 ENC F/U 09-22-2016 [place] EXAM AFTR MEDICAL CMPL TX OTH IMAGING ASS THAN MALIG NEOPLSM R509 FEVER 09-19-2016 [place] [facility]PEC[facility]ING ASS H1133 CONJUNCTIVA 07-28-2016 [facility] HEM[facility]RHAGE PHYS BILATERAL R030 ELEVATED 07-28-2016 [facility] BLOOD-PRESS N EMERGENCY URE READING PHYS WITHOUT DX HTN R0789 OTHER CHEST 07-28-2016 [facility] N EMERGENCY PHYS A075DCV OTHER 07-28-2016 [facility] SPECIFIED RADIOLOGY INJURIES THORAX INITIAL ENC H1032 UNSPECIFIED 07-24-2016 [facility] FAMILY CONJUNCTIVI PHYSICIANS TIS LEFT [facility] EYE H1132 CONJUNCTIVA 07-22-2016 [facility] L N EMERGENCY HEMORRHAGE PHYS LEFT EYE A883OMH CONTUSION 07-22-2016 [facility] OF N EMERGENCY ABDOMINAL PHYS WALL INITIAL ENCOUNTER E8342 HYPOMAGNESE 07-01-2016 [facility] TONI N EMERGENCY PHYS G0430 ACUTE 07-01-2016 [facility] NECROTIZING N EMERGENCY PHYS HEMORRHAGIC ENCEPHALOPA THY UNS R1110 VOMITING 06-28-2016 [facility] UNSPECIFIED SERV FOUNDATION G4710 HYPERSOMNIA 06-11-2016 LINDA GALLO MD UNSPECIFIED CONSULTING SRV D490 NEOPLASM OF 06-07-2016 [facility] UNS SERV BEHAVIOR FOUNDATION DIGESTIVE SYSTEM K766 PORTAL 06-07-2016 [facility] HYPERTENSIO SERV N FOUNDATION R161 SPLENOMEGAL 06-07-2016 [place] [facility] Y NOT SERV ELSEWHERE [facility]OUNDATION CLASSIFIED G479 SLEEP 06-03-[address] [facility] DISORDER [facility] R0683 SNORING 06-03-2016 [facility] R5383 OTHER 06-03-2016 [facility] Y97882 PAIN IN 05-20-2016 [place] UNSPECIFIED FOOT & LIMB ANKLE CE R072 PRECORDIAL 05-16-2016 LINDA JOSHI MD CONSULTING SRV G4733 OBSTRUCTIVE 05-02-2016 [facility] SLEEP FAMILY APNEA ADULT PHYSICIANS PEDIATRIC PLL V34747F TOX EFF OTH 04-08-2016 [facility] GASES N EMERGENCY FUMES & PHYS VAPORS ACC INITIAL ENC M545 LOW BACK 03-04-2016 [facility] PAIN FAMILY PHYSICIANS PLL R112 NAUSEA WITH 03-04-2016 [facility] UNSPECIFIED R1033 PERIUMBILIC 02-28-2016 [facility] AL PAIN N EMERGENCY PHYS R5381 OTHER 01-29-2016 [facility] MALAISE N EMERGENCY PHYS R17 UNSPECIFIED 01-26-2016 [facility] HOSPI L0390 CELLULITIS 01-08-2016 [facility] UNSPECIFIED FAMILY PHYSICIANS PLLC M546 PAIN IN 11-10-2015 [facility] THORACIC N EMERGENCY SPINE PHYS O24446 MUSCLE 11-10-2015 [facility] SPASM OF N EMERGENCY BACK PHYS K6389 OTHER 09-05-2015 [facility] [place] SPECIFIED RADIOLOGY DISEASES OF INTESTINE B370 CANDIDAL 08-15-2015 [facility] STOMATITIS FAMILY PHYSICIANS PLL K222 ESOPHAGEAL 07-26-2015 [facility] OBSTRUCTION REGIONAL PHYSICIAN PRA K319 DISEASE OF 07-26-2015 [place] [facility] PS UNSPECIFIED K449 DIAPHRAGMAT 07-26-2015 [place] [facility] HERNIA ANESTHESIA W/O GROUP PS OBSTRUCTION OR GANGRENE 4660 ACUTE 06-07-2015 [facility] BRONCHITIS [facility] 67158 ABDOMINAL 06-07-2015 [facility] PAIN, FAMILY GENERALIZED PHYSICIANS PLLC 7242 LUMBAGO 06-01-2015 [facility] 7862 COUGH 06-01-2015 [facility] 29872 ABDOMINAL 06-01-2015 [facility] [place] PAIN RIGHT RADIOLOGY LOWER [facility] 65020 DIAB W/O 05-31-2015 [facility] COMP TYPE N EMERGENCY II/UNS NOT PHYS STATED [facility] 4019 UNSPECIFIED 05-31-2015 [facility] N 4549 ASYMPTOMATI 05-31-2015 [facility] C VARICOSE [facility] 5715 CIRRHOSIS 05-31-[address] 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 86852 OTHER 05-31-2015 [facility] ASCITES [facility] V5867 LONG-TERM 05-31-2015 [facility] USE [facility] V5869 LONG-TERM 05-31-2015 [facility] (CURRENT) [facility] USE OF HOSPITAL OTHER MEDICATIONS 78648 NAUSEA WITH 05-26-2015 [facility] VOMITING [facility] 46058 ABDOMINAL 05-26-2015 [facility] PA[facility] RIGHT N EMERGENCY UPPER PHYS [facility] 70108 ABDOMINAL 05-26-2015 [facility] PA[facility], LEFT N EMERGENCY LOWER PHYS [facility] 16529 ABDOMINAL 05-26-2015 [facility] PA[facility], N EMERGENCY EPIGASTRIC PHYS V145 PERSONAL 05-26-2015 [place] HISTORY OF COMMUNITY ALLERGY TO HOSPITAL NARCOTIC AGENT 28525 ABDOMINAL 05-04-2015 [facility] UNSPECIFIED SITE 5718 OTHER 04-12-2015 [facility] CHRONIC [facility] NONALCOHOLI HOSPITAL C LIVER DISEASE 72840 UNSPEC 04-12-2015 [facility] INJURY LIVR N EMERGENCY W/O PHYS MENTION OPN WOUND IN CAV 25862 DIAB W/O 03-27-2015 [facility] MENTION FAMILY COMP TYPE PHYSICIANS II/UNS TYPE PLLC [facility] 30907 DIVERTICULI 03-27-2015 [facility] TIS OF FAMILY COLON PHYSICIANS PLLC 5589 OTH&UNSPEC 03-20-2015 [facility] NONINFECTIO N PHYSICIAN US SERVI GASTROENTER ITIS&COLITI S 5723 PORTAL 03-16-2015 [facility] [place] HYPERTENSIO RADIOLOGY N 43315 ABDOMINAL 03-16-2015 [facility] PAIN, N EMERGENCY PERIUMBILIC PHYS V146 PERSONAL 03-16-2015 [place] [facility]ISTORY OF COMM[facility]ITY ALLERGY TO HOSPITAL ANALGESIC AGENT 5289 OTHER&UNSPE 02-14-2015 [facility] CIFIED N EMERGENCY DISEASES PHYS THE ORAL SOFT TISSUES 5290 GLOSSITIS 02-14-2015 [facility] N EMERGENCY PHYS 2382 NEOPLASM OF 01-24-2015 [facility] UNCERTAIN FAMILY BEHAVIOR OF PHYSICIANS SKIN PLLC 4871 INFLUENZA 10-31-2014 [facility] WITH OTHER N PHYSICIAN RESPIRATORY SERVI MANIFESTATI ONS 10200 FEVER 10-31-2014 [facility] UNSPECIFIED N PHYSICIAN SERVI 486 PNEUMONIA, 10-30-2014 [facility] ORGANISM N EMERGENCY UNSPECIFIED PHYS 57355 OBESITY, 08-24-2014 [facility] NURSE UNSPECIFIED PRACTITIONE R GR V069 NEED PROPH 07-28-2014 [facility] W/UNSPEC [facility] DEPT COMB RESHMA VACCINE 07934 DISORDER OF 07-05-2014 [facility] [place] BONE AND RADIOLOGY CARTILAGE UNSPECIFIED 7948 NONSPECIFIC 07-05-2014 [facility] [place] ABNORMAL RADIOLOGY RESULTS LIVR FUNCTION STUDY 37526 DYSFUNCTION 06-29-2014 [place] OF PHYSICIAN EUSTACHIAN PRACTICE L TUBE 81384 SUBJECTIVE 06-29-2014 [place] TINNITUS PHYSICIAN PRACTICE L 60392 SENSORINEUR 06-29-2014 [place] AL HEARING PHYSICIAN LOSS PRACTICE L BILATERAL 7804 DIZZINESS 06-29-2014 [place] AND PHYSICIAN GIDDINESS PRACTICE L 4561 ESOPHAGEAL 06-27-2014 [place] [facility] VARICES SERV WITHOUT FOUNDATION MENTION OF BLEEDING 3899 UNSPECIFIED 06-21-2014 [place] HEARING PHYSICIAN LOSS PRACTICE L Medications Na ND Rx Da Fi Fi Am Da Di Ph RX Ph St me C No te ll ll ou ys ag ar # ys at rm s nt no ma ic us Or Da si cy ia de te s n re d ES 00 09 09 30 30 00 [...] PH AR MA CY #3 01 6 MN 65 08 09 12 2 00 KE [...] AR 10 MA CY MG TA B ES 00 08 09 30 30 00 [...] PH AR JUANY CY #3 01 6 AP 00 08 [...] ML DB A CV S PH AR JUANY CY #3 01 6 69 08 09 4. 28 00 KE [...] ve G 79 20 20 04 [place] NV 75 17 17 96 X 9 17 [...] 80 2- 1- 00 01 UC ve NV 21 20 20 03 [place] DE 61 [...] MG 33 7 CA PS UL E CA 00 07 08 60 30 00 [...] MA CY #3 01 6 XI 65 07 08 60 30 00 [...] 20 5- 4- 00 01 UC ve NV 76 20 20 02 [place] N 01 [...] MA CY #3 01 6 FU 00 06 07 30 30 00 KE Ac RO 37 -2 -2 .0 00 NT ti SE 80 9- 8- 00 01 UC ve NV 21 20 20 03 [place] DE 61 17 17 15 0 39 CV 40 S PH MG AR MA TA CY BL ET LL C, DB A CV S PH AR MA CY #3 01 6 BD 08 06 07 10 20 00 KE Ac 29 -2 -2 0. 00 NT ti UL 03 2- 1- 00 01 UC ve TR 20 20 20 0 03 [place] A- 11 17 17 83 FI 9 30 CV NE S PH PE AR N MA ND CY L 5M LL MX C, 31 G DB A CV S PH AR JUANY CY #3 01 6 ME 68 06 07 60 30 00 KE Ac TF 38 -1 -2 .0 00 NT ti OR 20 9- 1- 01 UC ve NV 76 20 20 02 [place] N 01 17 17 43 HC 0 90 CV L S 1, PH 00 AR 0 MA MG CY TA LL BL C, ET DB A CV S PH AR MA CY #3 01 6 ES 00 06 [...] MA CY #3 01 6 BD 08 06 [...] MA CY #3 01 6 CA 00 06 [...] MA CY #3 01 6 XI 65 06 [...] 20 3- 3- 00 01 UC ve NV 76 20 20 02 [place] N 01 [...] ve G 79 20 20 97 [place] NV 75 17 17 10 X 9 96 CV 75 S -2 PH 5 AR KW MA IK CY PE N LL C, DB A CV S PH AR MA CY #3 01 6 FU 00 05 06 30 30 00 KE Ac RO 37 -2 -2 .0 00 NT ti SE 80 4- 3- 00 01 UC ve NV 21 20 20 03 [place] DE 61 [...] PH AR MA CY #3 01 6 NV 57 05 06 30 30 00 KE [...] PH AR JUANY CY #3 01 6 DI 16 04 [...] PH AR MA CY #3 01 6 NV 57 04 05 30 30 00 KE [...] JUANY CY #3 01 6 ME 68 04 05 60 30 00 KE Ac TF 38 -2 -1 .0 00 NT ti OR 20 3- 2- 00 00 UC ve NV 76 20 20 99 [place] N 01 17 17 49 HC 0 47 CV L S 1, PH 00 AR 0 MA MG CY TA LL BL C, ET DB A CV S PH AR JUANY CY #3 01 6 69 04 05 4. 28 00 KE Ac T 45 -2 -1 00 00 NT ti D2 20 1- 2- 0 00 UC ve 15 20 20 99 [place] 1. 12 17 17 39 25 0 83 CV S MG PH AR (5 MA 0, CY 00 0 LL UN C, IT ) DB A CV S PH AR JUANY CY #3 01 6 ES 00 04 [...] ve G 79 20 20 97 [place] NV 75 17 17 10 X 9 96 [...] PH AR MA CY #3 01 6 NV 57 03 04 30 30 00 KE [...] 20 7- 7- 00 00 UC ve NV 76 20 20 99 [place] N 01 17 17 49 HC 0 47 CV L S 1, PH 00 AR 0 MA MG CY TA LL BL C, ET DB A CV S PH AR MA CY #3 01 6 ES 00 03 04 60 30 00 KE Ac OM 09 -1 -0 .0 05 NT ti EP 36 7- 7- 26 UC ve RA 45 20 20 25 KY ZO 15 17 17 17 LE 6 09 CL IN MA IC G DR PH AR 40 MA CY MG CA P FU 00 03 04 30 30 00 KE Ac RO 05 -1 -0 .0 05 NT ti SE 44 7- 7- 26 UC ve NV 29 20 20 25 [place] DE 93 17 17 17 1 12 CL 40 IN IC MG PH TA AR BL MA ET CY SP 00 03 04 30 30 00 KE Ac IR 60 -1 -0 .0 05 NT ti ON 35 26 UC ve OL 76 20 20 [...] 80 1- 0- 00 00 UC ve NV 20 20 20 97 [place] DE 81 17 17 66 0 62 CV 20 S PH MG AR MA TA CY BL ET LL C, DB A CV S PH AR MA CY #3 01 6 SP 53 02 03 30 30 00 KE Ac IR 74 -1 -1 .0 00 NT ti ON 60 1- 0- 00 UC ve OL 51 20 20 [...] 45 15 00 KE Ac TO 09 -0 -2 .0 00 NT ti CL 32 1- 4- 00 01 UC ve OP 20 20 20 00 [place] RA 30 17 17 11 NV 5 65 CV DE S PH 10 AR MA MG CY TA LL BL C, ET DB A CV S PH AR MA CY #3 01 6 NV 57 02 02 30 30 00 KE [...] 80 1- 0- 00 00 UC ve NV 20 20 20 97 [place] DE 81 17 17 66 0 62 CV 20 S PH MG AR MA TA CY BL ET LL C, DB A CV S PH AR MA CY #3 01 6 ME 68 01 02 60 30 00 KE Ac TF 38 -1 -1 .0 00 NT ti OR 20 0- 0- 00 00 UC ve NV 76 20 20 99 [place] N 01 [...] ) DB A CV S PH AR JUANY CY #3 01 6 TI 00 12 [...] PH AR JUANY CY #3 01 6 HU 00 12 01 30 30 00 KE Ac MA 00 -2 -1 .0 00 NT ti LO 28 1- 3- 00 00 UC ve G 79 20 20 97 [place] NV 75 16 17 10 X 9 96 CV 75 S -2 PH 5 AR KW MA IK CY PE N LL C, DB A CV S PH AR JUANY CY #3 01 6 ES 00 12 [...] PH AR JUANY CY #3 01 6 TI 00 12 [...] ent ider Refu lity Give sed n HEPB 11-2 43 [facility] 0-20 O O VACC 14 DIST DIST INE RICT RICT ADUL T 3 [facility] DOSE DEPT DEPT SCHE RESHMA RESHMA DULE FOR IM USE HEPA 11-2 52 [facility] 0-20 O O VACC 14 DIST DIST INE RICT RICT ADUL T HLTH HLTH DOSE FOR DEPT DEPT RESHMA RESHMA INTR AMUS CULA R USE Procedures Procedure DOS Code Location Performer Comment RADEX 18308 [place] BURGOS ABDOMEN 1 7 MEDICAL SERV ANTEROPOS FOUNDATIO TERIOR N VIEW BLOOD 07032 [place] MATTHEW SMEAR 7 MEDICAL PERIPHERA SERV L INTERP FOUNDATIO PHYS N W/WRIT REPORT INITIAL [address] CARE/DAY PHYSICIAN CIARAALAL 70 SERVI MINUTES ONDANSETR Q0162 [facility] ON 1 MG 7 [facility]ALTHCAR HEALTHCAR ORL NOT E E EXCEED 48 [facility] HR DOSE REG THERAPEUT 55285 [facility] IC 7 HE[facility] HEALTH[facility] PROPHYLAC E E TIC/DX [facility] INJECTION SUBQ/IM COMPREHEN 32651 [facility] SIVE 7 [facility] METABOLIC E E PANEL [facility] URNLS DIP 51513 [facility] 7 [facility]ALTHCAR HEALTHCAR STICK/TAB E E LET RGNT [facility] AUTO W/O MICROSCOP Y BLOOD 45526 [facility] COUNT 7 HEALTHCAR HEALTHCAR COMPLETE E E AUTOMATED [facility] [place] [address] [facility] LIPASE 7 HEALTHCAR HEALTHCAR E E [facility] FOR DIAB A5513 [facility] ONLY MX 7 BRACE BRACE DNSITY PROSTH PROSTH INSRT INC INC CSTM MOLD CSTM EA DIAB ONLY A5500 [facility] FIT CSTM 7 [facility]ACE BRACE PREP&SPL PROSTH PROSTH SHOE MX INC INC DNSITY INSRT OBSERVATI [address] [facility] ON/INPATI 7 MEDICINE [facility] O [place] [address] [place] [address] [place] ABDOMEN & 7 RADIOLOGY III PELVIS W/O CONTRAST MATERIAL PROTHROMB 40703 DILEEP FALK IN TIME 7 [facility] BLOOD 74722 DILEEP FALK COUNT [address] [place] [address] HOSPITAL AUTOMATED COMPREHEN [address]1540 DI[address] FALK [address] HOSPITAL PANEL PROTHROMB 00991 DILEEP FALK IN TIME 7 [facility] [place] [address] DILEEP SORTOON AMMONIA 7 [facility] GLUC BLD 26970 DILEEP SORTOON GLUC MNTR 7 [facility] CLEARED FDA SPEC HOME USE OBSERVATI 33051 [facility] ON CARE 7 MEDICINE DISCHARGE SERVICES O MANAGEMEN T GLUC BLD 43035 DILEEP FALK GLUC MNTR 7 [facility] CLEARED FDA SPEC HOME USE THROMBOPL 94545 DILEEP FALK ASTIN [address] [place] [address] HOSPITAL PARTIAL PLASMA/[place] [address] DILEEP FALK AMMONIA [address] [place] [address] HOSPITAL PROTHROMB 58846 DILEEP FALK IN TIME 7 [facility] COMPREHEN [address] [address] HOSPITAL PANEL BLOOD [address] [address] HOSPITAL AUTO&AUTO DIFRNTL WBC BLOOD 46403 DILEEP FALK COUNT [address] [place] [address] HOSPITAL AUTO&AUTO DIFRNTL WBC COMPREHEN [address] [address]ALK [address] HOSPITAL PANEL PROTHROMB 79335 DILEEP FALK IN TIME [address] [place] [address] [place] [address] DILEEP FALK LIPASE [address] [place] [address] INITIAL 51989 [facility] OBSERVATI 7 MEDICINE ON SERVICES CARE/DAY O [address] [place] [address] DILEEP FALK AMMONIA [address] [place] [address] URNLS DIP [address] [place] [address] STICK/TAB HOSPITAL HOSPITAL LET REAGENT AUTO MICROSCOP Y BLD BANK [address] [facility] PHYS SVCS 7 MEDICAL DIFFC SERV CROSS FOUNDATIO MATCH&/EV N AL REP ESOPHAGOG 41077 [place] SUZAN KEMPBULMAROUOD 7 MEDICAL ENOSCOPY SERV TRANSORAL FOUNDATIO N DIAGNOSTI C ANES 79293 [place] UPPER GI 7 MEDICAL ENDOSCOPY SERVICES PROXIMAL TO DUODENUM INITIAL 83406 [place] [address] CLARISSA ADRIAN CARE/DAY PHYSICIAN CIARAALAL 70 SERVI MINUTES BLD BANK 73556 [place] NICOLAS PHYS SVCS 7 MEDICAL DIFFC SERV CROSS FOUNDATIO MATCH&/EV N AL REP COMPREHEN 28557 [facility] SIVE [address] [place] [address] PANEL BLOOD 59077 [facility] COUNT [address] [place] [address] AUTOMATED RADIOLOGI 88159 [facility] [place] OLGA C EXAM 7 RADIOLOGY CHEST 2 VIEWS FRONTAL&L ATERAL DUP-SCAN 06132 [place] ROBERTH ARTL TIMOTHY 7 MEDICAL ABDL/PEL/ SERV SCROT&/RP FOUNDATIO R ORGN N COM RADIOLOGI 49172 [place] MERHAR C EXAM 7 MEDICAL CHEST 2 SERV VIEWS FOUNDATIO FRONTAL&L N ATERAL ECG 26803 [place] NIESHA ROUTINE 7 MEDICAL ECG SERV W/LEAST FOUNDATIO 12 LDS N I&R ONLY HOSPITAL 79112 [place] AV[place] DISCHARGE 7 MEDICAL DAY SERV MANAGEMEN FOUNDATIO T > 30 N MIN DUP-SCAN 28265 [place] WEBBER ARTL TIMOTHY 7 MEDICAL ABDL/PEL/ SERV SCROT&/RP FOUNDATIO R ORGN N COM SBSQ 24678 [place] [facility] 7 MEDICAL CARE/DAY SERV 35 FOUNDATIO MINUTES N SWALLOWIN 36559 [place] DL Moon FUNCJ 7 MEDICAL W/CINERAD SERV IOGRAPY/V FOUNDATIO IDRADIOG N SBSQ 31668 [place] [address] MEDICAL CARE/DAY SERV 25 FOUNDATIO MINUTES N SBSQ 71986 [facility] 7 MEDICAL CARE/DAY SERV 25 FOUNDATIO MINUTES N ECG 81656 [place] [facility] ROUTINE 7 MEDICAL ECG SERV W/LEAST FOUNDATIO 12 LDS N I&R ONLY RADIOLOGI 06943 [place] LAYLA C 7 MEDICAL AYA EXAMINATI SERV ON CHEST FOUNDATIO SINGLE N VIEW FRONTAL RADIOLOGI 91463 [place] ALANIS C 7 MEDICAL EXAMINATI SERV ON CHEST FOUNDATIO SINGLE N VIEW FRONTAL CRITICAL 16119 [place] ALONDRA CARE 7 MEDICAL ILL/INJUR SERV ED FOUNDATIO PATIENT N INIT 30-74 MIN ECG 12763 [place] DAMIAN ROUTINE 7 MEDICAL ECG SERV W/LEAST FOUNDATIO 12 LDS N I&R ONLY RADIOLOGI 12973 [place] ALANIS C 7 MEDICAL EXAMINATI SERV ON CHEST FOUNDATIO SINGLE N VIEW FRONTAL CRITICAL 62988 [place] [facility]ARE 7 MEDICAL ILL/INJUR SERV ED FOUNDATIO PATIENT N INIT 30-74 MIN RADIOLOGI 61964 [place] TREVON C 7 MEDICAL EXAMINATI SERV ON CHEST FOUNDATIO SINGLE N VIEW FRONTAL RADIOLOGI 59213 [place] ONEAL C 7 MEDICAL EXAMINATI SERV ON CHEST FOUNDATIO SINGLE N VIEW FRONTAL CRITICAL 17514 [place] ALONDRA CARE 7 MEDICAL ILL/INJUR SERV ED FOUNDATIO PATIENT N INIT 30-74 MIN COLONOSCO 31018 [place] ANNELIESE PY FLX DX 7 MEDICAL Y W/COLLJ SERV SPEC WHEN FOUNDATIO PFRMD N ESOPHAGOG 14485 [place] ANNELIESE ASTRODUOD 7 MEDICAL Y ENOSCOPY SERV TRANSORAL FOUNDATIO N DIAGNOSTI C RADEX 83901 [place] DL ABDOMEN 1 7 MEDICAL SERV ANTEROPOS FOUNDATIO TERIOR N VIEW RADEX 03817 [place] DL ABDOMEN 1 7 MEDICAL SERV ANTEROPOS FOUNDATIO TERIOR N VIEW DUP-SCAN 17030 [place] JESSICA ARTL TIMOTHY 7 MEDICAL ABDL/PEL/ SERV SCROT&/RP FOUNDATIO R ORGN N COM SBSQ 82406 [facility] 7 NURSE CARE/DAY PRACTITIO 25 NER GR MINUTES CRITICAL 92783 [place] ALONDRA CARE 7 MEDICAL ILL/INJUR SERV ED FOUNDATIO PATIENT N INIT 30-74 MIN RADIOLOGI 53884 [place] TREVON C 7 MEDICAL EXAMINATI SERV ON CHEST FOUNDATIO SINGLE N VIEW FRONTAL CRITICAL 64881 [place] AL[facility]DR[facility]ARE 7 MEDICAL ILL/INJUR SERV ED FOUNDATIO PATIENT N INIT 30-74 MIN RADIOLOGI 26414 [place] INDU C 7 MEDICAL EXAMINATI SERV ON CHEST FOUNDATIO SINGLE N VIEW FRONTAL RADIOLOGI 19679 [place] ONEAL C 7 MEDICAL EXAMINATI SERV ON CHEST FOUNDATIO SINGLE N VIEW FRONTAL CRITICAL 06530 [place] ALONDR[facility] CARE 7 MEDICAL ILL/INJUR SERV ED FOUNDATIO PATIENT N INIT 30-74 MIN ECG 42735 [place] BENSON ROUTINE 7 MEDICAL ECG SERV W/LEAST FOUNDATIO 12 LDS N I&R ONLY SBSQ 76483 [facility] 7 NURSE CARE/DAY PRACTITIO 35 NER GR MINUTES RADIOLOGI 34977 [place] RONAN C 7 MEDICAL EXAMINATI SERV ON CHEST FOUNDATIO SINGLE N VIEW FRONTAL RADIOLOGI 66421 [place] RONAN C 7 MEDICAL EXAMINATI SERV ON CHEST FOUNDATIO SINGLE N VIEW FRONTAL RADEX 12334 [place] JESSICA ABDOMEN 1 7 MEDICAL SERV ANTEROPOS FOUNDATIO TERIOR N VIEW BLD BANK 51854 [place] NICOLAS PHYS SVCS 7 MEDICAL AUTHJ SERV DEVIJ FOUNDATIO STANDARD N REPRT SERVICES 49468 [facility] 7 PHYSICIAN U BTW 10 S, PLLC PM&8 AM AT 24-HR FACI ECG 72990 [place] BENSON ROUTINE 7 MEDICAL ECG SERV W/LEAST FOUNDATIO 12 LDS N I&R ONLY RADIOLOGI 34991 [place] WYNNE C 7 MEDICAL MONA EXAMINATI SERV ON CHEST FOUNDATIO SINGLE N VIEW FRONTAL AMB A0427 [facility] SERVICE 7 AMBULANCE AMBULANCE ALS SERVICE SERVICE EMERGENCY TRANSPORT LEVEL 1 GROUND A0425 [facility] MILEAGE 7 AMBULANCE AMBULANCE PER SERVICE SERVICE STATUTE MILE INITIAL 68150 [facility] BHANU INPATIENT 7 NURSE CONSULT PRACTITIO NEW/ESTAB NER GR PT 80 MIN GROUND A0425 [facility] MILEAGE 7 AMBULANCE AMBULANCE PER SERVICE SERVICE STATUTE MILE AMB A0427 [facility] SERVICE 7 AMBULANCE AMBULANCE ALS SERVICE SERVICE EMERGENCY TRANSPORT LEVEL 1 CRITICAL 32985 [facility] CARE 7 PHYSICIAN U ILL/INJUR S, PLLC ED PATIENT INIT 30-74 MIN GROUND A0425 [facility]ULANCE AMBULANCE PER SERVICE SERVICE STATUTE MILE AMBULANCE A0429 [facility] SERVICE 7 AMBULANCE AMBULANCE BLS SERVICE SERVICE EMERGENCY TRANSPORT RADIOLOGI 49865 [place] [facility] C EXAM 7 MEDICAL CHEST 2 IMAGING VIEWS ASS FRONTAL&L ATERAL SERVICES 94281 [facility] PROVIDED 7 PHYSICIAN U BTW 10 S, PLLC PM&8 AM AT 24-HR FACI GROUND A0425 [facility] MILEAGE 7 [facility] PER [facility] STATUTE EMS EMS MILE OBSERVATI 59110 [facility] ON CARE 7 MEDICINE A DISCHARGE SERVICES O MANAGEMEN T INITIAL 89425 [facility] OBSERVATI 7 MEDICINE A ON SERVICES CARE/DAY O 70 MINUTES RADIOLOGI 60283 [facility] [place] SCALF C EXAM 7 RADIOLOGY CHEST 2 VIEWS FRONTAL&L ATERAL RADIOLOGI 42273 [facility] FIG[facility] C EXAM 7 MEDICAL CHEST 2 IMAGING VIEWS ASS FRONTAL&L ATERAL AMB A0427 [facility] SERVICE 7 AMBULANCE AMBULANCE ALS SERVICE SERVICE EMERGENCY TRANSPORT LEVEL 1 RADIOLOGI 58468 [place] [facility] EXAM 7 MEDICAL CHEST 2 IMAGING VIEWS ASS FRONTAL&L ATERAL GROUND A0425 [facility] MILEAGE 7 AMBULANCE AMBULANCE PER SERVICE SERVICE STATUTE MILE RADEX 89416 [facility] [place] SCALF MARILIN RIBS 6 RADIOLOGY UNILATERA L 2 VIEWS COLLECTIO 59769 DILEEP SORTOON N VENOUS 6 [facility] VENIPUNCT URE PROTHROMB 63306 DILEEP MACARIOJOCELYNN IN TIME 6 [facility] BLOOD 73630 DILEEP FALK COUNT 6 [facility] AUTOMATED COMPREHEN 72920 DILEEP FALK SIVE 6 [facility] PANEL RADEX 95336 [facility] [place] RIBS UNI 6 RADIOLOGY RHO W/POSTERO ANT CH MINIMUM [address] [place] [address] [place] [place] ABDOMEN & 6 RADIOLOGY RHO PELVIS W/O CONTRAST MATERIAL RADIOLOGI 70619 [facility] MATIAS C 6 CLARISSA EXAMINATI EMERGENCY ON CHEST PHYS SINGLE VIEW FRONTAL RADEX 23368 [facility] MATIAS RIBS 6 CLARISSA UNILATERA EMERGENCY L 2 VIEWS PHYS RADIOLOGI 28097 [facility] [place]AY[place] C 6 RADIOLOGY RHO EXAMINATI ON CHEST SINGLE VIEW FRONTAL ECG 23108 [facility] ARNOLD ROUTINE 6 CLARISSA LAST ECG EMERGENCY W/LEAST PHYS 12 LDS I&R ONLY ECG 87281 [place] DAMIAN LASHAWN ROUTINE 6 MEDICAL ECG SERV W/LEAST FOUNDATIO 12 LDS N I&R ONLY RADIOLOGI 55061 [place] BRENNAN C EXAM 6 MEDICAL MARY KATE CHEST 2 SERV VIEWS FOUNDATIO FRONTAL&L N ATERAL HEMOGLOBI 04366 [facility]MS[facility] JIM N 6 N[address] REGINALD TERAA PRACTITIO DANE A1C NER GR POLYSOM 19266 LINDA GALLO GALLO LINDA 6/>YRS 6 MD SLEEP 4/> CONSULTIN ADDL G SRV SYBIL ATTND MRI 59420 [place] JENNIFER ABDOMEN 6 MEDICAL W/O & SERV W/CONTRAS FOUNDATIO T N MATERIAL POLYSOM 63731 DILEEP FALK 6/>YRS 6 [facility] SLEEP 4/> HOSPITAL HOSPITAL ADDL SYBIL ATTND COLLECTIO 38476 DILEEP FALK N VENOUS 6 [facility] HOSPITAL VENIPUNCT URE PROTHROMB 38602 DILEEP FALK IN TIME 6 [facility] COMPREHEN 90249 DILEEP FALK SIVE 6 [facility] PANEL BLOOD 82489 DILEEP FALK COUNT 6 [facility] AUTOMATED ECHO 13340 LINDA GALLO GALLO LINDA TTHRC R-T 6 2D CONSULTIN W/WOM-MOD G SRV E COMPL SPEC&COLR D COMPREHEN [address] SIVE 6 GROUP GROUP [facility] PANEL COLLECTIO 22787 MANUEL GREEN JAMIE N VENOUS 6 FAMILY BLOOD PHYSICIAN VENIPUNCT S PLLC URE INITIAL 48663 [facility] DIAZ OBSERVATI 6 CLARISSA ISIRDA ON PHYSICIAN CARE/DAY SERVI 30 MINUTES RADIOLOGI 27285 [facility] [place] SHAY C 6 RADIOLOGY III MARY KATE EXAMINATI ON CHEST SINGLE VIEW FRONTAL RADIOLOGI 94817 [facility] SWINEY C 6 CLARISSA PAT EXAMINATI EMERGENCY ON CHEST PHYS SINGLE VIEW FRONTAL ECG 72135 [facility] SWINEY ROUTINE 6 CLARISSA PAT ECG EMERGENCY W/LEAST PHYS 12 LDS I&R ONLY RADIOLOGI 17142 [facility] [place] SCALF MARILIN C EXAM 6 RADIOLOGY CHEST 2 VIEWS FRONTAL&L ATERAL GENERAL [address] [facility] 6 Y [place] [address] [facility] GAMMAGLOB 6 Y Y ULIN [facility] IGD IGG IGM EACH ANTINUCLE 34204 [facility] 6 Y Y ANTIBODIE [facility] S COLLINS LACTATE 79537 [facility] DEHYDROGE 6 Y Y NASE [facility] HEPATITIS 30119 [facility] B SURF 6 Y Y ANT[place] [address] [facility] HAPTOGLOB 6 Y Y IN [facility] QUANTITAT NAIF COLLECTIO 25854 [facility] N VENOUS 6 Y Y BLOOD [facility] VENIPUNCT URE COLD 54633 [facility] AGGLUTINI 6 Y Y N TITER [facility] BLOOD 54337 [facility] COUNT 6 Y Y RETICULOC [facility] YTES AUTO 1/> [place] [address] [facility] FERRITIN 6 Y Y [facility] IMMUNOASS 54825 [facility] AY 6 Y Y ANALYTE [facility] QUAL/SEMI QUAL MULTIPLE STEP HEPATITIS 95000 [facility] A 6 Y Y [facility] HAAB CERULOPLA 54716 [facility] SMIN 6 [place] [address] [facility] FOLIC 6 Y [place] [address] [facility] IRON 6 [place] [address] [facility] FREE [address] [place] [address] [place] SCAL[place] MARILIN ABDOMEN & 5 RADIOLOGY PELVIS W/CONTRAS T MATERIAL ESOPHAGOG 23825 DAYNA TURNER ASTRODUOD [address] [place] [address] ENOSCOPY PHYSICIAN TRANSORAL PRA DIAGNOSTI C ANES 50317 [place] DEPA RAY UPPER GI 5 ANESTHESI ENDOSCOPY A GROUP PROXIMAL PS TO DUODENUM ONDANSETR Q0162 MACARIOJOCELYNN DILEEP ON 1 MG 5 [facility] ORSA[facility]TE [facility] EXCEED 48 HR DOSE REG GLUC BLD [address] [facility] DILEEP GLUC MNTR [address] [place] [address] CLEARED FDA SPEC HOME USE HI OSM Q[address] [facility] DILEEP CONTRST [address] [place] [address] HOSPITAL 350-399 MG/[place] [address] [facility]'S[facility]NN [facility] A[facility] & 5 [facility] PELVIS [facility]PITAL W/O CONTRAST MATERIAL URNLS DIP [address] [facility] IRAJ[address] [facility] HOSPITAL LET REAGENT AUTO MICROSCOP Y RADIOLOGI [address] [facility]'S[facility]NN FALK C [address] [place] [address] EXAMINATI [facility] HOSPITAL [place] [address] [facility] [facility]OCELYNN AMYLASE [address] [place] [address] HOSPITAL IAADIADOO [address] [facility] [address] [facility]'S[facility] DILEEP LIPASE [address] [place] [address] BLOOD [address] [facility] IRAJFABBY COUNT [address] [place] [address] AUTO&AUTO DIFRNTL WBC COMPREHEN [address] [facility] MACARIOJOCELYNN SIVE [address] [place] [address] METABOLIC [facility] HOSPITAL PANEL RADEX 05369 TRACY DILEEP SPINE 5 [facility] HOSPITAL AL 2/3 VIEWS COLLECTIO 62427 DILEEP FALK N VENOUS 5 [facility] HOSPITAL VENIPUNCT URE COLLECTIO [address] [facility]NN FALK N VENOUS 5 [facility] HOSPITAL VENIPUNCT URE COMPREHEN 03172 DILEEP FALK SIVE 5 [facility] PANEL BLOOD 79737 [facility] FALK COUNT 5 [facility] H[facility] AUTO&[place] [address] [facility] LIPASE [address] [place] [address] HOSPITAL INJECTION [id number] [address] KETOROLAC [facility] HOSPITAL TROMETHAM INE PER 15 MG URNLS DIP [address] [facility] [place] [address] [facility] ABDOMINAL 5 Y Y [facility] HOSPITAL TIME W/[place] [address] [facility] LIPASE 5 Y Y [facility] HOSPITAL BLOOD 45316 [facility] COUNT 5 Y Y [facility] HOSPITAL AUTO&AUTO DIFRNTL WBC COMPREHEN 21670 [facility] SIVE 5 Y Y [facility] HOSPITAL PANEL INJECTION J2405 [facility] 5 Y Y [place] DISPENSARY ON HCL PER 1 [place] [address] [facility] LACTATE 5 Y Y HOSPITAL HOSPITAL THER 28091 [facility] PROPH/DX 5 Y Y NJX IV [facility] HOSPITAL PUSH SINGLE/1S T SBST/[place] [address] [place] [place] ABDOMINAL 5 RADIOLOGY RHO REAL TIME W/[place] [address] [facility] TRACY ABDOMINAL 5 [facility] TIME W/IMAGE DOCUMENTA TION INJECTION J[address] HOSPITAL JEANNINE UP TO 4 MG INJECTION J2405 [address] ON HCL PER 1 MG HOSPITAL [address] [facility] DISCHARGE 5 CLARISSA EDGAR IGN DAY PHYSICIAN MANAGEMEN SERVI T 30 MIN/< SBSQ 84042 [facility] 5 CLARISSA HUG CARE/DAY PHYSICIAN 25 SERVI MINUTES SBSQ 37658 [facility] 5 CLARISSA HUG CARE/DAY PHYSICIAN 35 SERVI MINUTES INITIAL 41169 [facility] 5 CLARISSA A GOP CARE/DAY PHYSIC[place] [address] [place] [address] [facility] [place] ABDOMEN & 5 RADIOLOGY RAY PELVIS W/O CONTRAST MATERIAL HEMOGLOBI [address] N 5 GROUP GROUP GLYCOSYLA [facility] DANE A1C CYANOCOBA [address] NAHOMI 5 GROUP GROUP VITAMIN [facility]S [facility] B-12 COMPREHEN [address]17 [address] SIVE 5 GROUP GROUP MET[facility] PANEL COLLECTIO 62664 MANUEL GREEN JAMIE N VENOUS 5 FAMILY BLOOD PHYSICIAN VENIPUNCT S PLLC URE BLOOD 89225 PATH PATH COUNT 5 GROUP GROUP COMPLETE LAB[facility] AUTO&[place] [address] DILEEP FALK LIPASE [address] [place] [address] COLLECTIO 65359 DILEEP DILEEP N VENOUS [address] [place] [address] VENIPUNCT URE COMPREHEN [address] [facility]'SJ[facility]NN [address] PANEL GLUC BLD 28548 DILEEP SORTOON GLUC MNTR [address] [place] [address] CLEARED FDA SPEC HOME USE GLUC BLD [address] [facility] MACARIOON GLUC MNTR [address] [place] [address] CLEARED FDA SPEC HOME USE PRESSURIZ 55266 IRAJFABBY DILEEP ED/NONPRE [address] [place] [address] HOSPITAL INHALATIO N TREATMENT INITIAL 42967 [facility] OBSERVATI 5 CLARISSA EDGAR IGN ON PHYSICIAN CARE/DAY SERVI 70 MINUTES BLOOD 23614 DILEEP GIPSON PET COUNT [address] [place] [address] AUTOMATED COMPREHEN 69576 [facility] GALO[address] [place] [address] [facility] LIPASE [address] [place] [address] HOSPITAL IAADIADOO [address] [facility] [address] [facility] AMYLASE [address] [place] [address] HOSPITAL [id number] [facility] OBSERVATI [address] [place] [address] ON HOSPITAL HOSPITAL SERVICE PER HOUR NONINVASI 89520 [facility] VE [address] [place] [address] [facility] HOSPITAL OXIMETRY SINGLE DETER CULTURE 90974 [facility] BACTERIAL [address] [place] [address] BLOOD [facility] HOSPITAL AEROBIC W/ID ISOLATES IAADIADOO [address] [facility] CCUS GROUP A GLUC BLD 73828 [facility] GLUC MNTR [address] [place] [address] HOSPITAL CLEARED FDA SPEC HOME USE NATRIURET 66135 [facility] IC [address] [place] [address] HOSPITAL GENERAL [address] HOSPITAL URNLS DIP [address] [facility] HOSPITAL LET REAGENT AUTO MICROSCOP Y RADIOLOGI 47232 [facility] [place] C EXAM 5 RADIOLOGY RHO CHEST 2 VIEWS FRONTAL&L ATERAL HEMOGLOBI 36706 [facility] JOSE ANTONIO LUISA N 4 NURSE PETER VELA A1C NER GR IM ADM 77939 [facility] PRQ ID 4 DISTRICT DISTRICT SUBQ/IM HLTH DEPT HLTH DEPT NJXS EA RESHMA RESHMA VACCINE HEPB 80441 [facility] VACCINE 4 [facility] DISTRICT ADULT 3 HLTH DEPT HLTH DEPT DOSE RESHMA RESHMA SCHEDULE FOR IM USE HEPA 50400 [facility] VACCINE 4 [facility] DISTRICT ADULT HLTH DEPT HLTH DEPT DOSE FOR RESHMA RESHMA INTRAMUSC ULAR USE IM ADM 98865 [facility] PRQ ID 4 DISTRICT DISTRICT SUBQ/IM HLTH DEPT HLTH DEPT NJXS 1 RESHMA RESHMA VACCINE RADEX 53376 [facility] [place] ABDOMEN 4 RADIOLOGY RHO COMPL W/DCBTS&/ ERC VIEWS DXA BONE 58433 [facility] [place] DENSITY 4 RADIOLOGY RHO STUDY 1/> [place] [address] [facility] [place] ABDOMINAL 4 RADIOLOGY RHO REAL TIME W/IMAGE DOCUMENTA TION COMPRE 72009 [facility] AUDIOMETR 4 PHYSICIAN Y PRACTICE THRESHOLD L EVAL SP RECOGNIJ TYMPANOME 30542 [facility] TRY 4 PHYSICIAN PRACTICE L HEPATITIS 73798 [facility] SURF Y Y [facility] HBSAB PROTHROMB 34083 [facility] IN TIME Y Y [facility] HEPATITIS 86811 [facility] Y [facility] HAAB Encounters Encounter Start End Date Code Location Performer Type Date EMERGENCY [address] [facility] DEPT 7 7 CLARISSA VISIT EMERGENCY HIGH PHYS SEVERITY& THREAT [facility] EMERGENCY [address] [facility] 7 7 CLARISSA DEPARTMEN EMERGENCY T VISIT PHYS HIGH/URGE NT SEVERITY EMERGENCY 94791 [facility] DEPT 7 7 MEDICAL VISIT SERV HIGH FOUNDATIO SEVERITY& N THREAT [facility] - 7 7 [facility] OUTPATIEN E T HOSPITALS EMERGENCY 87350 7 7 [facility]ALTHCAR DEPARTMEN E T VISIT HOSPITALS HIGH/URGE NT SEVERITY EMERGENCY 57233 [facility] DEPT 7 7 CLARISSA VISIT EMERGENCY HIGH PHYS SEVERITY& THREAT [facility] EMERGENCY 83700 [facility] DEPT 7 7 COMMUNITY VISIT HOSPITAL HIGH SEVERITY& THREAT [facility] 7 [facility] T EMERGENCY 20358 [facility] DE[facility] 7 7 MEDICAL VISIT SERV HIGH FOUNDATIO SEVERITY& N THREAT FUNCJ OFFICE 34771 [facility] OUT[facility] 7 7 FAMILY T VISIT PHYSICIAN 15 S PLLC MINUTES EMERGENCY 11896 [facility] 7 7 CLARISSA DEPARTMEN EMERGENCY T VISIT PHYS HIGH/URGE NT SEVERITY [facility] - 7 7 [facility] INPATIENT E HOSPITALS EMERGENCY 96245 [facility] DEPT 7 7 MEDICAL VISIT SERV HIGH FOUNDATIO SEVERITY& N THREAT [facility] [address] [facility] T EMERGENCY [address] [facility] 7 7 CLARISSA DEPARTMEN EMERGENCY T VISIT PHYS HIGH/URGE NT SEVERITY EMERGENCY 83064 [facility] 7 [place] VISIT EMERGENCY HIGH PHYS SEVERITY& THREAT FUNJ EMERGENCY 41433 [facility] 7 7 PHYSICIAN U VISIT S, PLLC HIGH SEVERITY& THREAT FUNCJ OFFICE 76813 [facility] OFFICER CONSULTAT 7 7 MEDICAL ION SERV NEW/ESTAB FOUNDATIO PATIENT N 80 MIN EMERGENCY 28078 [facility] 7 7 MEDICAL DEPARTMEN SERV T VISIT FOUNDATIO MODERATE N SEVERITY EMERGENCY 58250 [facility] DEPT 7 7 [place] VISIT EMERGENCY HIGH PHYS SEVERITY& THREAT FUNJ EMERGENCY 76662 [facility] 6 6 [place] DEPARTMEN EMERGENCY T VISIT PHYS HIGH/URGE NT SEVERITY EMERGENCY 16204 [facility] 6 6 [place] PAT DEPARTMEN EMERGENCY T VISIT PHYS HIGH/URGE NT SEVERITY [facility] [address] [facility] T OFFICE 71393 [facility] 6 6 FAMILY T VISIT PHYSICIAN 15 S PLLC MINUTES EMERGENCY 86301 [facility] MATIAS DEPT 6 6 [place] VISIT EMERGENCY HIGH PHYS SEVERITY& THREAT FUNJ EMERGENCY 30075 [facility] DEPT 6 6 [place] LAST VISIT EMERGENCY HIGH PHYS SEVERITY& THREAT FUNCJ EMERGENCY [address] [place] [address] 6 6 MEDICAL DEPARTMEN SERV T VISIT FOUNDATIO LOW/MODER N SEVERITY OFFICE 81860 [facility] 6 6 NURSE REGINALD T VISIT PRACTITIO 25 NER GR MINUTES EMERGENCY 96483 [facility] 6 6 [place] PAT DEPARTMEN EMERGENCY T VISIT PHYS HIGH/URGE NT SEVERITY [facility] 6 [facility] - [address] [facility] T OFFICE 78529 [facility] 6 6 FOOT & T NEW 30 ANKLE CE MINUTES OFFICE 89172 [facility] ARNDT [facility] 6 6 FAMILY T VISIT PHYSICIAN 15 S PLLC MINUTES EMERGENCY 27318 [facility] 6 6 MEDICAL DEPARTMEN SERV T VISIT FOUNDATIO MODERATE N SEVERITY EMERGENCY 07480 [facility] DEPT 6 6 [place] KATHY VISIT EMERGENCY HIGH PHYS SEVERITY& THREAT FUNCJ OFFICE 48374 [facility]EL GREEN JAMIE OUTPATIEN 6 6 FAMILY T VISIT PHYSICIAN 25 S PLLC MINUTES EMERGENCY 94465 [facility] DEPT 6 6 [place] PAT VISIT EMERGENCY HIGH PHYS SEVERITY& THREAT FUNCJ EMERGENCY 14538 [facility] DEPT 6 6 [place] KATHY VISIT EMERGENCY HIGH PHYS SEVERITY& THREAT FUNCJ OFFICE 82078 [facility] 6 6 Y OF RTHY JERRY T VISIT [place] 15 HOSPI MINUTES OFFICE 83187 MANUEL ARNDT JAMIE OUTPATIEN 6 6 FAMILY T VISIT PHYSICIAN 15 S PLLC MINUTES EMERGENCY 29775 [facility] 6 6 [place] PAT DEPARTMEN EMERGENCY T VISIT PHYS HIGH/URGE NT SEVERITY [facility]OSPITAL [facility] - 6 6 [facility] T OFFICE 44878 [facility] 5 FAMILY T VISIT PHYSICIAN 15 S PLLC MINUTES OFFICE 63293 [facility] 5 5 FAMILY T VISIT PHYSICIAN 25 S PLLC MINUTES OFFICE 67282 [facility] 5 5 FAMILY T VISIT PHYSICIAN 15 S PLLC MINUTES [facility] [place] [facility] [address] [facility] T EMERGENCY [address] [facility] DEPT 5 5 CLARISSA COLLINS VISIT EMERGENCY HIGH PHYS SEVERITY& THREAT FUNCJ EMERGENCY 58514 [place] 5 5 [facility] T VISIT HIGH/URGE NT SEVERITY EMERGENCY 81418 [facility] 5 5 CLARISSA - YORBA DEPARTMEN EMERGENCY PAT T VISIT PHYS HIGH/URGE NT SEVERITY [facility] [place] [facility] [address] [facility] T EMERGENCY 28537 [facility] 5 [facility] FOUNDATIO MODERATE N SEVERITY [facility] - 5 5 [facility] T EMERGENCY 55157 [facility] 5 5 [facility] T VISIT HIGH/URGE NT SEVERITY [facility] [place] [facility] [address] [facility] T OFFICE 27624 [facility] [place] [facility] FAMILY T VISIT PHYSICIAN 25 S PLLC MINUTES EMERGENCY [id number] [place] 5 5 [facility] T VISIT MODERATE SEVERITY EMERGENCY 23843 [facility] 5 5 CLARISSA DEPARTMEN EMERGENCY T VISIT PHYS HIGH/URGE NT SEVERITY [facility] [place] [facility] [address] [facility] T OFFICE 90733 MANUEL AYALA OUTPATIEN 5 5 FAMILY T VISIT PHYSICIAN 15 S PLLC MINUTES [facility] [place] - 5 5 [facility] EMERGENCY [address] [facility] DEPT 5 5 CLARISSA COLLINS VISIT EMERGENCY HIGH PHYS SEVERITY& THREAT FUNCJ OFFICE 23340 MANUEL AYALA OUTPATIEN 5 5 FAMILY T VISIT PHYSICIAN 15 S PLLC MINUTES [facility] [place] [facility] [address] [facility] T EMERGENCY 45649 [facility] 5 5 CLARISSA PAT DEPARTMEN EMERGENCY T VISIT PHYS HIGH/URGE NT SEVERITY EMERGENCY [address] [facility] 5 5 [facility] T VISIT MODERATE SEVERITY OFFICE 41140 MANUEL AYALA OUTPATIEN 5 5 FAMILY T VISIT PHYSICIAN 15 S PLLC MINUTES EMERGENCY 89980 [facility] II DEPT 5 5 CL[place]IS[place] THO VISIT EMERGENCY HIGH PHYS SEVERITY& THREAT [facility] [place] [facility] [address] [facility] T OFFICE 27492 [facility] 4 NURSE T NEW 45 PRACTITIO MINUTES [facility] GR OFFICE 97761 MANUEL AYALA OUTPATIEN 4 4 FAMILY T VISIT PHYSICIAN 15 S PLLC MINUTES OFFICE 17506 MANUEL AYALA OUTPATIEN 4 4 FAMILY T VISIT PHYSICIAN 25 S PLLC MINUTES EMERGENCY 91570 [facility] DEPT 4 4 CLARIS[place] MUH VISIT EMERGENCY HIGH PHYSI SEVERITY& THREAT [facility] [place] - [address] [facility] T OFFICE [id number] DILEEP [facility] 4 4 PHYSICIAN LES T VISIT PRACTICE 15 L MINUTES [facility]OSP[facility] - 4 4 [facility] T OFFICE 00114 [facility] OUTPATIEN 4 4 [facility] T VISIT SERV 25 FOUNDATIO MINUTES N OFFICE 29545 DILEEP [facility] CONS[facility]AT 4 4 PHYSICIAN LES ION PRACTICE NEW/ESTAB L PATIENT 40 MIN OFFICE 10074 MANUEL AYALA OUTPATIEN 4 4 FAMILY T VISIT PHYSICIAN 15 S PLLC MINUTES
--- OUTSIDE RECORDS SUMMARY | 2017-06-14 12:34 | External Medical Summary Rpt ---
Author Author , UNIQUE CALHOUN Address Unknown Phone [email or web address] Decor Care Team Providers Care Community Board Member Name Role Phone SIMONE CADET, SIMONE CHICHI Unavailable Unavailable ARNOLD, ARNOLD Unavailable Unavailable ARNOLD LAST, ARNOLD Unavailable Unavailable LAST EDUARDO LES, EDUARDO Unavailable Unavailable LES LAYTON, LAYTON Unavailable Unavailable AVALLONE, AVALLONE Unavailable Unavailable BEINEKE, BEINEKE Unavailable Unavailable PULIDO, PULIDO Unavailable Unavailable [facility] Unavailable Unavailable [facility], [facility] PHYSICIAN Unavailable Unavailable PRACTICE L, [facility], [facility] Unavailable Unavailable [facility] Unavailable Unavailable SERVICE, [facility] MICHAEL EDGAR, MICHAEL Unavailable Unavailable [...] Unavailable [facility] Unavailable Unavailable PHYSICIAN PRA, [facility] PHYSICIAN PRA [facility], Unavailable Unavailable [...] Unavailable SERVICES O, [facility]IC[facility] O IC DESIGNER GATE ARRAYS, IC DESIGNER GATE ARRAYS Unavailable Unavailable SHAY III, SHAY Unavailable Unavailable III SHAY III MARY KATE, Unavailable Unavailable SHAY III MARY KATE [facility] Un[facility] Unavailable GROUP PS, [facility] Unavailable Unavailable [facility], [facility] MATTHEW, MATTHEW Unavailable Unavailable [facility] N[facility] Unavailable Unavailable PRACTITIONER GR, [facility] N[facility] PRACTITIONER GR GOOD JERRY, Unavailable Unavailable GOOD JERRY BRANDAN PET, BRANDAN PET Unavailable Unavailable BENSON, BENSON Unavailable Unavailable [facility] Unavailable [facility], [facility], Unavailable Unavailable [facility] JESSICA, JESSICA Unavailable Unavailable [place] [...] CONSULTING SRV, LINDA GALLO MD CONSULTING SRV [facility] Unavailable Unavailable EMS, [facility] EMS [facility] Unavailable Unavailable EMS, [facility] EMS [facility] Unavailable Unavailable PHYSICIANS PLL[facility], [facility]ICIANS [facility], Unavailable Unavailable PLLC, [facility], Unavailable Unavailable [facility] [...] [facility] Unavailable Unavailable PHYSICIAN SERVI, REPLAC[facility] BY [facility] WEBBER, WEBBER Unavailable Unavailable WEBBER RAY, WEBBER Unavailable Unavailable RAY SWINEY PAT, SWINEY Unavailable Unavailable PAT FLORENCIO TER, FLORENCIO TER Unavailable Unavailable [facility] Unavailable Unavailable HOSPITALS, [facility], Unavailable Unavailable [facility] Unavailable [facility], [facility] BRENNAN MARY KATE, BRENNAN Unavailable Unavailable MARY KATE JIM REGINALD, JIM Unavailable Unavailable REGINALD ALANIS, ALANIS Unavailable Unavailable [facility] Unavailable Unavailable DEPT RESHMA, [facility] Unavailable Unavailable [facility], [facility] NICOLAS VALENZUELA Unavailable Unavailable INUDINDU GIMENEZ Unavailable Unavailable ZAGUROVSKAYA, Unavailable Unavailable ZAGUROVSKAYA OLGA, OLGA Unavailable Unavailable Purpose Continuity of Care Document - 06-16-2014 through 2016 Problems Code Diagnosis DOS Provider Status D539 NUTRITIONAL 05-08-2017 [facility]PEC[facility]IED [facility] D696 THROMBOCYTO 05-08-2017 [facility] PENIA [facility] UNSPECIFIED [facility]ATION R109 UNSPECIFIED 05-08-2017 [facility] ABDOMINAL SERV PAIN [facility] R140 ABDOMINAL 05-08-2017 [facility] DISTENSION SERV GASEOUS [facility] K7581 NONALCOHOLI [...] O FAILURE WITHOUT COMA R51 HEADACHE 02-14-2017 [facility] Z794 LONG-TERM 02-14-2017 [facility] CURRENT USE [facility] Z7984 LONG-TERM 02-14-2017 [facility] USE OF ORAL [facility] HYPOGLYCEMI C DRUGS Z9119 PATIENTS 02-14-2017 [facility]IAN [facility] CE W/OTH HOSPITAL MED TX & REGIMEN D649 ANEMIA 01-31-2017 [facility] UNSPECIFIED SERV [facility] K922 GASTROINTES 01-30-2017 [facility] TINAL SERV HEMORRHAGE FOUNDATION UNSPECIFIED E1165 TYPE 2 01-29-2017 [place] DIABETES [facility]ILY MELLITUS PHYSICIANS WITH PLLC HYPERGLYCEM [place] N94198 PAIN IN 01-29-2017 [facility] RIGHT FOOT [facility]ILY [facility]C B71086 PAIN IN 01-29-2017 [facility] LEFT FOOT [facility] PLLC R600 LOCALIZED 01-26-2017 [facility] EDEMA N EMERGENCY PHYS R739 HYPERGLYCEM 01-26-2017 [facility] IA N EMERGENCY UNSPECIFIED PHYS D62 ACUTE 01-15-2017 [facility] POSTHEMORRH SERVICES AGIC ANEMIA K209 ESOPHAGITIS [...] AWAITING 01-12-2017 [facility] STATUS V57360 EFFUSION 12-27-2016 [facility] RIGHT ANKLE N EMERGENCY PHYS Q80907 EFFUSION 12-27-2016 [facility] LEFT ANKLE N EMERGENCY PHYS N390 URINARY 12-20-2016 [facility] TRACT N EMERGENCY INFECTION PHYS SITE NOT SPECIFIED R0609 OTHER FORMS 12-20-2016 [facility] [place] OF DYSPNEA RADIOLOGY R110 NAUSEA 12-20-2016 [facility] N EMERGENCY PHYS R079 CHEST PAIN 12-16-2016 [facility] U[facility]PECIF[facility] SERV [facility] R1084 GENERALIZED 12-16-2016 [facility] ABDOMINAL SERV PAIN [facility] R9431 ABNORMAL 12-16-2016 [facility] ELECTROCARD SERV IOGRAM FOUNDATION I8501 ESOPHAGEAL 11-22-2016 [facility] VARICES [facility] WITH [facility] BLEEDING R1310 DYSPHAGIA 11-22-2016 [facility] UNSPECIFIED SERV [facility] Z0189 ENCOUNTER 11-22-2016 [facility] OTHER SERV SPECIFIED [facility]OUND[facility] SPECIAL EXAMINATION S K228 OTHER 11-21-2016 [facility] SPECIFIED SERV DISEASES OF FOUNDATION ESOPHAGUS R490 DYSPHONIA 11-21-2016 [facility] K50948W OTH FORGEN 11-20-2016 [place] [facility] OBJ RESP [...] FINDING OF LUNG FIELD Z4682 ENCOUNTER 11-17-2016 [facility] FITTING & SERV ADJUST [facility] NON-VASCULA R CATHETER I2119 ST 11-16-2016 [place] [facility] E[facility] SERV WI INVOLV [facility]OUNDATION OTH CORONARY ART INF WALL [...] J9811 ATELECTASIS 11-13-2016 [facility] B1306XT OTHER 11-13-2016 [place] [facility] POSTPROCEDU SERV RAL [...] PRACTITIONE UNSPECIFIED R GR J849 INTERSTITIA 11-11-2016 [facility] L PULMONARY SERV DISEASE FOUNDATION UNSPECIFIED J984 OTHER 11-11-2016 [facility] DISORDERS SERV OF LUNG FOUNDATION Z452 ENCOUNTER 11-09-2016 [facility] ADJUSTMENT& SERV MGMT [facility] VASCULAR ACCESS DEVICE E875 HYPERKALEMI 11-08-2016 S NURSE Javy Whitney GR I459 CONDUCTION 11-08-2016 [facility] DISORDER SERV UNSPECIFIED FOUNDATION K920 HEMATEMESIS 11-08-2016 AC LOPEZ, [facility] K8020 CALCULUS GB 11-07-2016 [facility] W/O SERV CHOLECYSTIT FOUNDATION IS W/O OBSTRUCTION R188 OTHER 11-07-2016 [facility] ASCITES SERV [facility] Z8719 PERSONAL 11-07-2016 [facility] HISTORY SERV OTHER FOUNDATION DISEASES DIGESTIVE SYSTEM R0602 SHORTNESS 11-06-2016 [facility] R531 WEAKNESS 11-06-2016 AC LOPEZ, [facility] M542 CERVICALGIA 10-21-2016 [facility] M6281 MUSCLE 10-21-2016 [place] WE[facility] R1030 LOWER 10-21-2016 [facility] ABDOMINAL SERV PAIN [facility]OUND[facility] UNSPECIFIED R05 COUGH 10-09-2016 [facility] J189 PNEUMONIA 09-22-2016 [place] U[facility]PECIFIED MEDICAL ORGANISM IMAGING ASS Z09 ENC F/U 09-22-2016 [facility] EXAM AFTR MEDICAL CMPL TX OTH IMAGING ASS THAN MALIG NEOPLSM R509 FEVER 09-19-2016 [place] [facility]PEC[facility]IED [facility] IM[facility]ING ASS H1133 CONJUNCTIVA 07-28-2016 [facility] HEMORRHAGE PHYS BILATERAL R030 ELEVATED 07-28-2016 [facility] BLOOD-PRESS N EMERGENCY URE READING PHYS WITHOUT DX HTN R0789 OTHER CHEST 07-28-2016 [facility] N EMERGENCY PHYS E974QJB OTHER 07-28-2016 [facility] SPECIFIED RADIOLOGY INJURIES THORAX INITIAL ENC H1032 UNSPECIFIED 07-24-2016 [facility] FAMILY CONJUNCTIVI PHYSICIANS TIS LEFT [facility] EYE H1132 CONJUNCTIVA 07-22-2016 [facility] L N EMERGENCY HEMORRHAGE PHYS LEFT EYE U920DGB CONTUSION 07-22-2016 [facility] OF N EMERGENCY ABDOMINAL PHYS WALL INITIAL ENCOUNTER E8342 HYPOMAGNESE 07-01-2016 [facility] TONI N EMERGENCY PHYS G0430 ACUTE 07-01-2016 [facility] NECROTIZING N EMERGENCY PHYS HEMORRHAGIC ENCEPHALOPA THY UNS R1110 VOMITING 06-28-2016 [facility] UNSPECIFIED SERV FOUNDATION G4710 HYPERSOMNIA 06-11-2016 LINDA GALLO MD UNSPECIFIED CONSULTING SRV D490 NEOPLASM OF 06-07-2016 [place] [facility] UNS SERV BEHAVIOR FOUNDATION DIGESTIVE SYSTEM K766 PORTAL 06-07-2016 [place] [facility] HYPERTENSIO SERV N FOUNDATION R161 SPLENOMEGAL 06-07-2016 [place] [facility] Y NOT SERV ELSEWHERE FOUNDATION CLASSIFIED G479 SLEEP 06-03-2016 [facility] R0683 SNORING 06-03-2016 [facility] R5383 OTHER 06-03-2016 [facility] O60724 PAIN IN 05-20-2016 [place] UNSPECIFIED FOOT & LIMB ANKLE CE R072 PRECORDIAL 05-16-2016 LINDA JOSHI MD CONSULTING SRV G4733 OBSTRUCTIVE 05-02-2016 [facility] SLEEP [facility]ILY [facility]ULT [facility]IC[facility]ANS PEDIATRIC PLL Q04852H TOX EFF OTH 04-08-2016 [facility] GASES N EMERGENCY FUMES & PHYS VAPORS ACC INITIAL ENC M545 LOW BACK 03-04-2016 [facility] PAIN FAMILY PHYSICIANS PLL R112 NAUSEA WITH 03-04-2016 [facility] UNSPECIFIED R1033 PERIUMBILIC 02-28-2016 [facility] AL PAIN N EMERGENCY PHYS R5381 OTHER 01-29-2016 [facility] MALAISE N EMERGENCY PHYS R17 UNSPECIFIED 01-26-2016 [facility] HOSPI L0390 CELLULITIS 01-08-2016 [facility] UNSPECIFIED FAMILY PHYSICIANS PLLC M546 PAIN IN 11-10-2015 [facility] THORACIC N EMERGENCY SPINE PHYS X81485 MUSCLE 11-10-2015 [facility] SPASM OF N EMERGENCY BACK PHYS K6389 OTHER 09-05-2015 [facility] [place] SPECIFIED RADIOLOGY DISEASES OF INTESTINE B370 CANDIDAL 08-15-2015 [facility] STOMATITIS FAMILY PHYSICIANS PLL K222 ESOPHAGEAL 07-26-2015 [facility] OBSTRUCTION REGIONAL PHYSICIAN PRA K319 DISEASE OF 07-26-2015 [facility] DUODENUM GROUP PS UNSPECIFIED K449 DIAPHRAGMAT 07-26-2015 [facility] HERNIA ANESTHESIA W/O GROUP PS OBSTRUCTION OR GANGRENE 4660 ACUTE 06-07-2015 [facility] BRONCHITIS [facility] 68591 ABDOMINAL 06-07-2015 [facility] PAIN, FAMILY GENERALIZED PHYSICIANS PLLC 7242 LUMBAGO 06-01-2015 [facility] [place] [facility] 7862 COUGH 06-01-2015 [facility] 58497 ABDOMINAL 06-01-2015 [facility] [place] PAIN RIGHT RADIOLOGY LOWER QUADRANT 58532 DIAB W/O 05-31-2015 [facility] COMP TYPE N EMERGENCY II/UNS NOT PHYS STATED UN[facility]L 4019 UNSPECIFIED 05-31-2015 [facility] N 4549 ASYMPTOMATI 05-31-2015 [facility] C [facility] 5715 CIRRHOSIS 05-31-2015 [facility] WITHOUT [facility]OSPITAL MENTION OF ALCOHOL 41783 OSTEOARTHRO 05-31-2015 [facility] S UNSPEC COMMUNITY WHETHER HOSPITAL GEN/LOC UNSPEC SITE 7213 LUMBOSACRAL 05-31-2015 [facility] N EMERGENCY SPONDYLOSIS PHYS WITHOUT MYELOPATHY 31753 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 [facility] 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 25593 OTHER 05-31-2015 [facility] ASCITES [facility] V5867 LONG-TERM 05-31-2015 [facility] V5869 LONG-TERM 05-31-2015 [facility] (CURRENT[facility] CRITICAL ACCESS [facility]OSPITAL USE OF HOSPITAL OTHER MEDICATIONS 54570 NAUSEA WITH 05-26-2015 [facility] VOMITING [facility] 09469 ABDOMINAL 05-26-2015 [facility] PA[facility] RIGHT N EMERGENCY UPPER PHYS QUADRANT 11025 ABDOMINAL 05-26-2015 [facility] PAIN, LEFT N EMERGENCY LOWER PHYS QUADRANT 69969 ABDOMINAL 05-26-2015 [facility] PAIN, N EMERGENCY EPIGASTRIC PHYS V145 PERSONAL 05-26-2015 [facility]ISTORY OF COMMUNITY ALLERGY TO HOSPITAL NARCOTIC AGENT 85308 ABDOMINAL 05-04-2015 [facility] UNSPECIFIED SITE 5718 OTHER 04-12-2015 [facility] C LIVER DISEASE 44072 UNSPEC 04-12-2015 [facility] INJURY LIVR N EMERGENCY W/O PHYS MENTION OPN WOUND IN CAV 01183 DIAB W/O 03-27-2015 [facility] MENTION FAMILY COMP TYPE PHYSICIANS II/UNS TYPE PLLC UNCN[facility]L 17390 DIVERTICULI 03-27-2015 [facility] TIS OF FAMILY COLON PHYSICIANS PLLC 5589 OTH&UNSPEC 03-20-2015 [facility] NONINFECTIO N PHYSICIAN US SERVI GASTROENTER ITIS&COLITI S 5723 PORTAL 03-16-2015 [facility] [place] HYPERTENSIO RADIOLOGY N 64584 ABDOMINAL 03-16-2015 [facility] PAIN, N EMERGENCY PERIUMBILIC PHYS V146 PERSONAL 03-16-2015 [facility] [facility]ITY ALLERGY TO [facility]OSPITAL ANALGESIC AGENT 5289 OTHER&UNSPE 02-14-2015 [facility] CIFIED N EMERGENCY DISEASES PHYS THE ORAL SOFT TISSUES 5290 GLOSSITIS 02-14-2015 [facility] N EMERGENCY PHYS 2382 NEOPLASM OF 01-24-2015 [place] UNCERTAIN FAMILY BEHAVIOR OF PHYSICIANS SKIN PLLC 4871 INFLUENZA 10-31-2014 [facility] WITH OTHER N PHYSICIAN RESPIRATORY SERVI MANIFESTATI ONS 31824 FEVER 10-31-2014 [facility] UNSPECIFIED N PHYSICIAN SERVI 486 PNEUMONIA, 10-30-2014 [facility] ORGANISM N EMERGENCY UNSPECIFIED PHYS 88952 OBESITY, 08-24-2014 [facility] NURSE UNSPECIFIED PRACTITIONE R GR V069 NEED PROPH 07-28-2014 [facility] W/UNSPEC [facility] DE[facility] COMB RESHMA VACCINE 20957 DISORDER OF 07-05-2014 [facility] [place] BONE AND RADIOLOGY CARTILAGE UNSPECIFIED 7948 NONSPECIFIC 07-05-2014 [facility] [place] ABNORMAL RADIOLOGY RESULTS LIVR FUNCTION STUDY 04267 DYSFUNCTION 06-29-2014 [place] OF PHYSICIAN EUSTACHIAN PRACTICE L TUBE 17104 SUBJECTIVE 06-29-2014 [facility] TINNITUS PHYSICIAN PRACTICE L 89006 SENSORINEUR 06-29-2014 [place] AL HEARING PHYSICIAN LOSS [...] PH AR MA CY #3 01 6 TN 65 08 09 12 2 00 KE [...] ve G 79 20 20 04 [place] WI 75 17 17 96 X 9 17 [...] 80 2- 1- 00 01 UC ve WI 21 20 20 03 [place] DE 61 [...] 20 5- 4- 00 01 UC ve WI 76 20 20 02 [place] N 01 [...] 80 9- 8- 00 01 UC ve [place] 21 20 20 03 [place] DE 61 [...] OR 20 9- 1- 01 UC ve WI 76 20 20 02 [place] N 01 [...] 20 3- 3- 00 01 UC ve WI 76 20 20 02 [place] N 01 [...] ve G 79 20 20 97 [place] WI 75 17 17 10 X 9 96 CV 75 S -2 PH 5 AR KW MA IK CY PE N LL C, DB A CV S PH AR MA CY #3 01 6 FU 00 05 06 30 30 00 KE Ac RO 37 -2 -2 .0 00 NT ti SE 80 4- 3- 00 01 UC ve WI 21 20 20 03 [place] DE 61 [...] PH AR MA CY #3 01 6 WI 57 05 06 30 30 00 KE [...] PH AR MA CY #3 01 6 WI 57 04 05 30 30 00 KE [...] 20 3- 2- 00 00 UC ve WI 76 20 20 99 KY N 01 [...] ve G 79 20 20 97 [place] WI 75 17 17 10 X 9 96 [...] PH AR MA CY #3 01 6 WI 57 03 04 30 30 00 KE [...] 20 7- 7- 00 00 UC ve WI 76 20 20 99 [place] N 01 [...] SE 44 7- 7- 26 UC ve WI 29 20 20 25 [place] DE 93 [...] 80 1- 0- 00 00 UC ve WI 20 20 20 97 [place] DE 81 [...] 00 [place] RA 30 17 17 11 WI 5 65 CV DE S PH 10 AR MA MG CY TA LL BL C, ET DB A CV S PH AR MA CY #3 01 6 WI 57 02 02 30 30 00 KE [...] 80 1- 0- 00 00 UC ve WI 20 20 20 97 [place] DE 81 17 17 66 0 62 CV 20 S PH MG AR MA TA CY BL ET LL C, DB A CV S PH AR MA CY #3 01 6 ME 68 01 02 60 30 00 KE Ac TF 38 -1 -1 .0 00 NT ti OR 20 0- 0- 00 00 UC ve WI 76 20 20 99 [place] N 01 [...] ve G 79 20 20 97 [place] WI 75 16 17 10 X 9 96 [...] Procedure DOS Code Location Performer Comment RADEX 21416 [place] ABDOMEN 1 7 MEDICAL SERV ANTEROPOS FOUNDATIO TERIOR N VIEW BLOOD 49171 [place] MATTHEW SMEAR 7 MEDICAL PERIPHERA SERV L INTERP FOUNDATIO PHYS N W/WRIT REPORT INITIAL [address] CARE/DAY PHYSICIAN CIARAALAL 70 SERVI MINUTES ONDANSETR Q0162 [place] [facility] ON 1 MG 7 HEALTHCAR HEALTHCAR ORL NOT E E EXCEED 48 [facility] HR DOSE REG THERAPEUT 68597 UK IC 7 HEALTHCAR HEALTHCAR PROPHYLAC E E TIC/DX [facility] INJECTION SUBQ/IM COMPREHEN 39778 [facility] UK SIVE 7 HEALTHCAR HEALTHCAR METABOLIC E E PANEL [facility] URNLS DIP 14579 UK 7 HEALTHCAR HEALTHCAR STICK/TAB E E LET RGNT [facility] AUTO W/O MICROSCOP Y BLOOD 88164 [facility] COUNT 7 HEALTHCAR HEALTHCAR COMPLETE E E AUTOMATED [place] [address] UK UK LIPASE 7 HEALTHCAR HEALTHCAR E E [facility] FOR DIAB A5513 [facility] CENTRAL ONLY MX 7 BRACE BRACE DNSITY PROSTH PROSTH INSRT INC INC CSTM MOLD CSTM EA DIAB ONLY A5500 [facility] CENTRAL FIT CSTM 7 BRACE BRACE PREP&SPL PROSTH PROSTH SHOE MX INC INC DNSITY INSRT OBSERVATI 03728 [facility] ON/INPATI 7 MEDICINE [facility] O [place] [address] [place] [address] [facility] [place] SHAY ABDOMEN & 7 RADIOLOGY III PELVIS W/O CONTRAST MATERIAL PROTHROMB 83022 DILEEP FALK IN TIME 7 [facility] HOSPITAL BLOOD 61954 DILEEP FALK COUNT [address] [place] [address] HOSPITAL AUTOMATED COMPREHEN [address]96 [address]EP [address]ALK [address] HOSPITAL PANEL PROTHROMB 19263 DILEEP FALK IN TIME 7 [facility] [place] [address] DILEEP SORTOON AMMONIA 7 [facility] H[facility]PITAL GLUC BLD 15498 DILEEP SORTOON GLUC MNTR 7 [facility] CLEARED FDA SPEC HOME USE OBSERVATI 33743 [facility] ON CARE 7 MEDICINE DISCHARGE SERVICES O MANAGEMEN T GLUC BLD 90094 DILEEP FALK GLUC MNTR 7 [facility] CLEARED FDA SPEC HOME USE THROMBOPL 61092 DILEEP FALK ASTIN [address] [place] [address] HOSPITAL PARTIAL PLASMA/[place] [address] DILEEP FALK AMMONIA [address] [place] [address] HOSPITAL PROTHROMB 23355 DILEEP FALK IN TIME 7 [facility] HOSPITAL COMPREHEN [address] HOSPITAL PANEL BLOOD [address] HOSPITAL AUTO&AUTO DIFRNTL WBC BLOOD 14535 DILEEP FALK COUNT [address] [place] [address] HOSPITAL AUTO&AUTO DIFRNTL WBC COMPREHEN [address]16 [address] HOSPITAL PANEL PROTHROMB 96758 DILEEP FALK IN TIME [address] [place] [address] [place] [address] DILEEP FALK LIPASE [address] [place] [address] INITIAL 85861 [facility] OBSERVATI 7 MEDICINE ON SERVICES CARE/DAY O [address] [place] [address] DILEEP FALK AMMONIA [address] [place] [address] URNLS DIP 24876 DILEEP FALK [address] [place] [address] STICK/TAB HOSPITAL HOSPITAL LET REAGENT AUTO MICROSCOP Y BLD BANK 44300 [facility] VALENZUELA PHYS SVCS 7 MEDICAL DIFFC SERV CROSS FOUNDATIO MATCH&/EV N AL REP ESOPHAGOG 23418 [place] SUZAN KEMPBULMAROUOD 7 MEDICAL ENOSCOPY SERV TRANSORAL FOUNDATIO N DIAGNOSTI C ANES 28927 [place] UPPER GI 7 MEDICAL ENDOSCOPY SERVICES PROXIMAL TO DUODENUM INITIAL [address] [place] [address] CLARISSA ADRIAN CARE/DAY PHYSICIAN CIARAALAL 70 SERVI MINUTES BLD BANK 82684 [place] NICOLAS PHYS SVCS 7 MEDICAL DIFFC SERV CROSS FOUNDATIO MATCH&/EV N AL REP COMPREHEN 49024 [facility] SIVE [address] [place] [address] PANEL BLOOD 21003 [facility] COUNT [address] [place] [address] AUTOMATED RADIOLOGI 81081 [facility] [place] OLGA C EXAM 7 RADIOLOGY CHEST 2 VIEWS FRONTAL&L ATERAL DUP-SCAN 71019 [place] ROBERTH ARTL TIMOTHY 7 MEDICAL ABDL/PEL/ SERV SCROT&/RP FOUNDATIO R ORGN N COM RADIOLOGI 40974 [place] MERHAR C EXAM 7 MEDICAL CHEST 2 SERV VIEWS FOUNDATIO FRONTAL&L N ATERAL ECG 37007 [place] NIESHA ROUTINE 7 MEDICAL ECG SERV W/LEAST FOUNDATIO 12 LDS N I&R ONLY HOSPITAL 82560 [place] AVALLONE DISCHARGE 7 MEDICAL DAY SERV MANAGEMEN FOUNDATIO T > 30 N MIN DUP-SCAN 56039 [place] WEBBER ARTL TIMOTHY 7 MEDICAL ABDL/PEL/ SERV SCROT&/RP FOUNDATIO R ORGN N COM SBSQ 09330 [place] [facility] 7 MEDICAL CARE/DAY SERV 35 FOUNDATIO MINUTES N SWALLOWIN 62232 [place] DL Moon FUNCJ 7 MEDICAL W/CINERAD SERV IOGRAPY/V FOUNDATIO IDRADIOG N SBSQ 25360 [place] [address] MEDICAL CARE/DAY SERV 25 FOUNDATIO MINUTES N SBSQ 49943 [facility] 7 MEDICAL CARE/DAY SERV 25 FOUNDATIO MINUTES N ECG 07069 [place] BENSON ROUTINE 7 MEDICAL ECG SERV W/LEAST FOUNDATIO 12 LDS N I&R ONLY RADIOLOGI 95595 [place] LAYLA C 7 MEDICAL AYA EXAMINATI SERV ON CHEST FOUNDATIO SINGLE N VIEW FRONTAL RADIOLOGI 29676 [place] ALANIS C 7 MEDICAL EXAMINATI SERV ON CHEST FOUNDATIO SINGLE N VIEW FRONTAL CRITICAL 31721 [place] ALONDRA CARE 7 MEDICAL ILL/INJUR SERV ED FOUNDATIO PATIENT N INIT 30-74 MIN ECG 91395 [place] DAMIAN ROUTINE 7 MEDICAL ECG SERV W/LEAST FOUNDATIO 12 LDS N I&R ONLY RADIOLOGI 00256 [place] ALANIS C 7 MEDICAL EXAMINATI SERV ON CHEST FOUNDATIO SINGLE N VIEW FRONTAL CRITICAL 43297 [place] ALONDRA CARE 7 MEDICAL ILL/INJUR SERV ED FOUNDATIO PATIENT N INIT 30-74 MIN RADIOLOGI 56253 [place] TREVON C 7 MEDICAL EXAMINATI SERV ON CHEST FOUNDATIO SINGLE N VIEW FRONTAL RADIOLOGI 58637 [place] ONEAL C 7 MEDICAL EXAMINATI SERV ON CHEST FOUNDATIO SINGLE N VIEW FRONTAL CRITICAL 26228 [place] AL[facility]DR[facility] CARE 7 MEDICAL ILL/INJUR SERV ED FOUNDATIO PATIENT N INIT 30-74 MIN COLONOSCO 77320 [place] ANNELIESE PY FLX DX 7 MEDICAL Y W/COLLJ SERV SPEC WHEN FOUNDATIO PFRMD N ESOPHAGOG 72267 [place] ANNELIESE ASTRODUOD 7 MEDICAL Y ENOSCOPY SERV TRANSORAL FOUNDATIO N DIAGNOSTI C RADEX 30100 [place] DL ABDOMEN 1 7 MEDICAL SERV ANTEROPOS FOUNDATIO TERIOR N VIEW RADEX 96151 [place] DL ABDOMEN 1 7 MEDICAL SERV ANTEROPOS FOUNDATIO TERIOR N VIEW DUP-SCAN 74215 [place] JESSICA ARTL TIMOTHY 7 MEDICAL ABDL/PEL/ SERV SCROT&/RP FOUNDATIO R ORGN N COM SBSQ 64598 [facility] 7 NURSE CARE/DAY PRACTITIO 25 NER GR MINUTES CRITICAL 70860 [place] ALONDRA CARE 7 MEDICAL ILL/INJUR SERV ED FOUNDATIO PATIENT N INIT 30-74 MIN RADIOLOGI 29127 [place] TREVON C 7 MEDICAL EXAMINATI SERV ON CHEST FOUNDATIO SINGLE N VIEW FRONTAL CRITICAL 17249 [place] [facility] 7 MEDICAL ILL/INJUR SERV ED FOUNDATIO PATIENT N INIT 30-74 MIN RADIOLOGI 48158 [place] INDU C 7 MEDICAL EXAMINATI SERV ON CHEST FOUNDATIO SINGLE N VIEW FRONTAL RADIOLOGI 11061 [place] ONEAL C 7 MEDICAL EXAMINATI SERV ON CHEST FOUNDATIO SINGLE N VIEW FRONTAL CRITICAL 51520 [place] [facility] 7 MEDICAL ILL/INJUR SERV ED FOUNDATIO PATIENT N INIT 30-74 MIN ECG 94159 [place] [facility] 7 MEDICAL ECG SERV W/LEAST FOUNDATIO 12 LDS N I&R ONLY SBSQ 64809 [facility] 7 NURSE CARE/DAY PRACTITIO 35 NER GR MINUTES RADIOLOGI 14587 [place] C 7 MEDICAL EXAMINATI SERV ON CHEST FOUNDATIO SINGLE N VIEW FRONTAL RADIOLOGI 14908 [place] 7 MEDICAL EXAMINATI SERV ON CHEST FOUNDATIO SINGLE N VIEW FRONTAL RADEX 53134 [place] JESSICA ABDOMEN 1 7 MEDICAL SERV ANTEROPOS FOUNDATIO TERIOR N VIEW BLD BANK 82813 [place] [facility] 7 MEDICAL AUTHJ SERV DEVIJ FOUNDATIO STANDARD N REPRT SERVICES 85534 [facility] 7 PHYSICIAN U BTW 10 S, PLLC PM&8 AM AT 24-HR FACI ECG 83055 [place] [facility] 7 MEDICAL ECG SERV W/LEAST FOUNDATIO 12 LDS N I&R ONLY RADIOLOGI 90263 [place] WYNNE C 7 MEDICAL MONA EXAMINATI SERV ON CHEST FOUNDATIO SINGLE N VIEW FRONTAL AMB A0427 [facility] 7 AMBULANCE AMBULANCE ALS SERVICE SERVICE EMERGENCY TRANSPORT LEVEL 1 GROUND A0425 [facility] 7 AMBULANCE AMBULANCE PER SERVICE SERVICE STATUTE MILE INITIAL 03451 [facility] INPATIENT 7 NURSE CONSULT PRACTITIO NEW/ESTAB NER GR PT 80 MIN GROUND A0425 [facility] 7 AMBULANCE AMBULANCE PER SERVICE SERVICE STATUTE MILE AMB A0427 [facility] 7 AMBULANCE AMBULANCE ALS SERVICE SERVICE EMERGENCY TRANSPORT LEVEL 1 CRITICAL 92456 [facility] CARE 7 PHYSICIAN U ILL/INJUR S, PLLC ED PATIENT INIT 30-74 MIN GROUND A0425 [facility] PER SERVICE SERVICE STATUTE MILE AMBULANCE A0429 [facility] 7 AMBULANCE AMBULANCE BLS SERVICE SERVICE EMERGENCY TRANSPORT RADIOLOGI 47726 [facility] EXAM 7 MEDICAL CHEST 2 IMAGING VIEWS ASS FRONTAL&L ATERAL SERVICES 22820 [facility] PROVIDED 7 PHYSICIAN U BTW 10 S, PLLC PM&8 AM AT 24-HR FACI GROUND A0425 [facility]LE[facility] 7 [facility] STATUTE EMS EMS MILE OBSERVATI 69881 [facility] ON CARE 7 MEDICINE A DISCHARGE SERVICES O MANAGEMEN T INITIAL 39615 [facility] OBSERVATI 7 MEDICINE A ON SERVICES CARE/DAY O 70 MINUTES RADIOLOGI 81841 [facility] [place] SCALF C EXAM 7 RADIOLOGY CHEST 2 VIEWS FRONTAL&L ATERAL RADIOLOGI 57314 [facility] EXAM 7 MEDICAL CHEST 2 IMAGING VIEWS ASS FRONTAL&L ATERAL AMB A0427 [facility]ICE 7 AMBULANCE AMBULANCE ALS SERVICE SERVICE EMERGENCY TRANSPORT LEVEL 1 RADIOLOGI 03918 [facility] C EXAM 7 MEDICAL CHEST 2 IMAGING VIEWS ASS FRONTAL&L ATERAL GROUND A0425 [facility] MILEAGE 7 AMBULANCE AMBULANCE PER SERVICE SERVICE STATUTE MILE RADEX 44657 [facility] [place] SCALF MARILIN RIBS 6 RADIOLOGY UNILATERA L 2 VIEWS COLLECTIO 64789 DILEEP SORTOON N VENOUS 6 [facility] VENIPUNCT URE PROTHROMB 94342 DILEEP MACARIOJOCELYNN IN TIME 6 [facility] BLOOD 47912 DILEEP FALK COUNT [address] [facility] AUTOMATED COMPREHEN 88521 DILEEP FALK SIVE 6 [facility] PANEL RADEX 35737 [facility] [place] RIBS UNI 6 RADIOLOGY RHO W/POSTERO ANT [place] MINIM[address] [place] [address] [facility] [place] ABDOMEN & 6 RADIOLOGY RHO PELVIS W/O CONTRAST MATERIAL RADIOLOGI 04774 [facility] MATIAS C 6 CL[place]ISSA EXAMINATI EMERGENCY ON CHEST PHYS SINGLE VIEW FRONTAL RADEX 05246 [facility] MATIAS RIBS 6 [place] UNILATERA EMERGENCY L 2 VIEWS PHYS RADIOLOGI 49172 [facility] [place] C 6 RADIOLOGY RHO EXAMINATI ON CHEST SINGLE VIEW FRONTAL ECG 23798 [facility] ARNOLD ROUTINE 6 CLARISSA LAST ECG EMERGENCY W/LEAST PHYS 12 LDS I&R ONLY ECG 68587 [place] DAMIAN LASHAWN ROUTINE 6 MEDICAL ECG SERV W/LEAST FOUNDATIO 12 LDS N I&R ONLY RADIOLOGI 06144 [place] BRENNAN C EXAM 6 MEDICAL MARY KATE CHEST 2 SERV VIEWS FOUNDATIO FRONTAL&L N ATERAL HEMOGLOBI 57807 KMSF JIM N [address] PRACTITIO D[address] A1C NER GR POLYSOM 60437 LINDA GALLO GALLO LINDA 6/>YRS 6 MD SLEEP 4/> CONSULTIN ADDL G SRV SYBIL ATTND MRI 36210 [place] BURG[facility] JENNIFER ABDOMEN 6 MEDICAL W/O & SERV W/CONTRAS FOUNDATIO T N MATERIAL POLYSOM 91882 DILEEP FALK 6/>YRS 6 [facility] SLEEP 4/> HOSPITAL HOSPITAL ADDL SYBIL ATTND COLLECTIO 35210 DILEEP FALK N VENOUS 6 [facility] HOSPITAL VENIPUNCT URE PROTHROMB 48275 DILEEP FALK IN TIME 6 [facility] COMPREHEN 56526 DILEEP FALK SIVE 6 [facility] PANEL BLOOD [address]61 DILEEP FALK COUNT [address] [facility] AUTOMATED ECHO 65682 LINDA GALLO GALLO LINDA TTHRC R-T 6 2D CONSULTIN W/WOM-MOD G SRV E COMPL SPEC&COLR D COMPREHEN [address] SIVE 6 GROUP [facility] PANEL COLLECTIO 85235 MANUEL GREEN JAMIE N VENOUS 6 FAMILY BLOOD PHYSICIAN VENIPUNCT S PLLC URE INITIAL 91001 [facility] DIAZ OBSERVATI 6 CLARISSA ISIDRA ON PHYSICIAN CARE/DAY SERVI 30 MINUTES RADIOLOGI 37097 [facility] [place] SHAY C 6 RADIOLOGY III MARY KATE EXAMINATI ON CHEST SINGLE VIEW FRONTAL RADIOLOGI 81171 [facility] SWINEY C 6 CL[place]IS[place] PAT EXAMINATI EMERGENCY ON CHEST PHYS SINGLE VIEW FRONTAL ECG 61646 [facility] SWINEY ROUTINE 6 CLARISSA PAT ECG EMERGENCY W/LEAST PHYS 12 LDS I&R ONLY RADIOLOGI 10394 [facility] [place] SCALF MARILIN C EXAM 6 RADIOLOGY CHEST 2 VIEWS FRONTAL&L ATERAL GENERAL 52187 [facility] 6 Y Y PANEL [facility] [place] [address] [facility] GAMMAGLOB [address] [facility] IGD IGG IGM EACH ANTINUCLE 31949 [facility] 6 Y Y ANTIBODIE [facility] S COLLINS LACTATE 73631 [facility] DEHYDROGE 6 Y Y NASE [facility] HEPATITIS 23287 [facility] B SURF 6 Y Y ANTIBODY [facility] [place] [address] [facility] HAPTOGLOB 6 Y Y IN [facility] QUANTITAT NAIF COLLECTIO 76214 [facility] N VENOUS 6 Y Y BLOOD [facility] VENIPUNCT URE COLD 01045 [facility] AGGLUTINI 6 Y Y N TITER [facility] BLOOD 68772 [facility] COUNT 6 Y Y RETICULOC [facility] YTES AUTO 1/> [place] [address] [facility] FERRITIN 6 Y Y [facility] IMMUNOASS 99765 [facility] AY 6 Y Y ANALYTE [facility] QUAL/SEMI QUAL MULTIPLE STEP HEPATITIS 59258 [facility] A 6 Y [facility] HAAB CERULOPLA 38892 [facility] UNIVERS SMIN 6 [place] [address] [facility] FOLIC 6 Y Y [place] [address] [facility] IRON 6 [place] [address] [facility] FREE 6 [place] [address] [facility] [place] MARILIN ABDOMEN & 5 RADIOLOGY PELVIS W/CONTRAS T MATERIAL ESOPHAGOG 56333 DAYNA TURNER ASTRODUOD [address] [place] [address] ENOSCOPY PHYSICIAN TRANSORAL PRA DIAGNOSTI C ANES 80360 [place] DEPA RAY UPPER GI 5 ANESTHESI ENDOSCOPY A GROUP PROXIMAL PS TO DUODENUM ONDANSETR Q0162 MACARIOJOCELYNN DILEEP ON [address] [facility] ORGENERAL [facility] HOSPITAL EXCEED 48 HR DOSE REG GLUC BLD 29012 [facility] DILEEP GLUC MNTR [address] [place] [address] CLEARED FDA SPEC HOME USE HI OSM Q9963 [facility] DILEEP CONTRST [address] [place] [address] HOSPITAL [phone] MG/[place] [address] [facility]ITAL[facility] ABDOMEN & 5 [facility] PELVIS [facility] W/O CONTRAST MATERIAL URNLS DIP 34628 [facility] IRAJ[address] [facility] HOSPITAL LET REAGENT AUTO MICROSCOP Y RADIOLOGI 57827 [facility] FALK C [address] [place] [address] EXAMINATI [facility] HOSPITAL [place] [address] [facility] AMYLASE [address] [place] [address] HOSPITAL IAADIADOO [address] [facility] [address] [facility] DILEEP LIPASE [address] [place] [address] BLOOD 69500 [facility] IRAJFABBY COUNT [address] [place] [address] AUTO&AUTO DIFRNTL WBC COMPREHEN 13938 [facility] MACARIOJOCELYNN SIVE [address] [place] [address] METABOLIC [facility] PANEL RADEX 80376 [facility] DILEEP SPINE 5 [facility] AL 2/3 VIEWS COLLECTIO 27798 DILEEP FALK N VENOUS 5 [facility] HOSPITAL VENIPUNCT URE COLLECTIO 19009 [facility] FALK N VENOUS 5 [facility] HOSPITAL VENIPUNCT URE COMPREHEN 55479 DILEEP FALK SIVE 5 [facility] PANEL BLOOD 27873 [facility] FALK COUNT 5 [facility] AUTO&[place] [address] [facility] LIPASE [address] [place] [address] HOSPITAL INJECTION [id number] [address] KETOROLAC [facility]PITAL TROMETHAM INE PER 15 MG URNLS DIP [address] [facility] [address] [facility] ABDOMINAL 5 Y Y [facility] TIME W/[place] [address] [facility] LIPASE 5 Y Y [facility]PITAL BLOOD 50117 [facility] COUNT 5 Y Y [facility] AUTO&AUTO DIFRNTL WBC COMPREHEN 51939 [facility] UNIVERS SIVE 5 Y Y [facility]OSPITAL PANEL INJECTION J2405 [facility] 5 Y Y [facility] ON HCL PER 1 [place] [address] [facility] LACTATE 5 Y Y HOSPITAL HOSPITAL THER 13471 [facility] PROPH/DX 5 Y Y NJX IV [facility] PUSH SINGLE/1S T SBST/[place] [address] [facility] [place] ABDOMINAL 5 RADIOLOGY RHO REAL TIME W/[place] [address] [facility] [place] ABDOMINAL 5 [facility] HOSPITAL TIME W/IMAGE DOCUMENTA TION INJECTION J[address] HOSPITAL JEANNINE UP TO 4 MG INJECTION J2405 [address] ON HCL PER 1 MG HOSPITAL [address] [facility] DISCHARGE 5 CLARISSA EDGAR IGN DAY PHYSICIAN MANAGEMEN SERVI T 30 MIN/< SBSQ 39935 [facility] 5 CLARISSA HUG CARE/DAY PHYSICIAN 25 SERVI MINUTES SBSQ 29003 [facility] 5 CL[place]ISSA HUG CARE/DAY PHYSICIAN 35 SERVI MINUTES INITIAL 14839 [facility] 5 CLARISSA A GOP CARE/DAY PHYSIC[place] [address] [place] [address] [facility] [place] WE[place] ABDOMEN & 5 RADIOLOGY RAY PELVIS W/O CONTRAST MATERIAL HEMOGLOBI [address] N 5 GROUP GROUP GLYCOSYLA [facility] DANE A1C CYANOCOBA [address] NAHOMI 5 GROUP GROUP VITAMIN [facility]S [facility] B-12 COMPREHEN [address] SIVE 5 GROUP GROUP [facility] PANEL COLLECTIO 72526 MANUEL GREEN JAMIE N VENOUS 5 FAMILY BLOOD PHYSICIAN VENIPUNCT S PLLC URE BLOOD 96219 PATH PATH COUNT 5 GROUP GROUP COMPLETE LABS [facility] AUTO&[place] [address] DILEEP FALK LIPASE [address] [place] [address] COLLECTIO 34214 DILEEP DILEEP N VENOUS [address] [place] [address] VENIPUNCT URE COMPREHEN 65931 [facility] [address] PANEL GLUC BLD 94071 DILEEP SORTOON GLUC MNTR [address] [place] [address] CLEARED FDA SPEC HOME USE GLUC BLD 35492 [facility] MACARIOON GLUC MNTR [address] [place] [address] CLEARED FDA SPEC HOME USE PRESSURIZ 08105 IRAJFABBY DILEEP ED/NONPRE [address] [place] [address] HOSPITAL INHALATIO N TREATMENT INITIAL 95044 [facility] OBSERVATI 5 CLARISSA EDGAR IGN ON PHYSICIAN CARE/DAY SERVI 70 MINUTES BLOOD 72745 DILEEP GIPSON PET COUNT [address] [place] [address] AUTOMATED COMPREHEN 89690 [facility] G[address] [place] [address] [facility] LIPASE [address] [place] [address] HOSPITAL IAADIADOO [address] [facility] [address] [facility] AMYLASE [address] [place] [address] HOSPITAL [id number] [facility] OBSERVATI [address] [place] [address] ON HOSPITAL HOSPITAL SERVICE PER HOUR NONINVASI 56517 [facility] VE [address] [place] [address] EAR[facility]PULSE HOSPITAL HOSPITAL OXIMETRY SINGLE DETER CULTURE 99574 [facility] BACTERIAL [address] [place] [address] BLOOD [facility]PITAL AEROBIC W/ID ISOLATES IAADIADOO [address] [facility] CCUS GROUP A GLUC BLD 31140 [facility] GLUC MNTR [address] [place] [address] HOSPITAL CLEARED FDA SPEC HOME USE NATRIURET 76202 [facility] IC [address] [place] [address] HOSPITAL GENERAL [address] HOSPITAL URNLS DIP [address] [facility] HOSPITAL LET REAGENT AUTO MICROSCOP Y RADIOLOGI 85261 [facility] [place] C EXAM 5 RADIOLOGY RHO CHEST 2 VIEWS FRONTAL&L ATERAL HEMOGLOBI 31251 KMS[facility] JOSE ANTONIO LUISA N 4 NURSE PETER VELA A1C NER GR IM ADM 39002 [facility] PRQ ID 4 [facility] DISTRICT SUBQ/IM HLTH DEPT HLTH DEPT NJXS EA RESHMA RESHMA VACCINE HEPB 28469 [facility] VACCINE 4 [facility] ADULT 3 HLTH DEPT HLTH DEPT DOSE RESHMA RESHMA SCHEDULE FOR IM USE HEPA 09041 [facility] VACCINE 4 [facility] DISTRICT ADULT HLTH DEPT HLTH DEPT DOSE FOR RESHMA RESHMA INTRAMUSC ULAR USE IM ADM 34923 [facility] PRQ ID 4 DISTRICT DISTRICT SUBQ/IM HLTH DEPT HLTH DEPT NJXS 1 RESHMA RESHMA VACCINE RADEX 85636 [facility] [place] ABDOMEN 4 RADIOLOGY RHO COMPL W/DCBTS&/ ERC VIEWS DXA BONE 04927 [facility] [place] DENSITY 4 RADIOLOGY RHO STUDY 1/> [place] [address] [facility] [place] ABDOMINAL 4 RADIOLOGY RHO REAL TIME W/IMAGE DOCUMENTA TION COMPRE 11461 [facility] AUDIOMETR 4 PHYSICIAN Y PRACTICE THRESHOLD L EVAL SP RECOGNIJ TYMPANOME 33502 [place] [facility] TRY 4 PHYSICIAN PRACTICE L HEPATITIS 19495 [facility] SURF Y Y ANTIBODY [facility] HBSAB PROTHROMB 24119 [facility] IN TIME Y Y [facility] HEPATITIS 03564 [facility] Y Y ANTIBODY [facility] HAAB Encounters Encounter Start End Date Code Location Performer Type Date EMERGENCY 44648 [facility] 7 7 CL[place] VISIT EMERGENCY HIGH PHYS SEVERITY& THREAT [facility] EMERGENCY 49951 [facility] 7 7 CLARISSA DEPARTMEN EMERGENCY T VISIT PHYS HIGH/URGE NT SEVERITY EMERGENCY 09654 [facility]PT 7 7 MEDICAL VISIT SERV HIGH FOUNDATIO SEVERITY& N THREAT [facility] - 7 7 [facility] OUTPATIEN E T HOSPITALS EMERGENCY 36956 7 7 [facility] DEPARTMEN E T VISIT HOSPITALS HIGH/URGE NT SEVERITY EMERGENCY 83617 [facility] DEPT 7 7 CLARISSA VISIT EMERGENCY HIGH PHYS SEVERITY& THREAT [facility] 7 [facility] T EMERGENCY 03773 [facility] 7 7 COMMUNITY VISIT HOSPITAL HIGH SEVERITY& THREAT [facility] 7 [facility] T EMERGENCY 81383 [facility] DE[facility] 7 7 MEDICAL VISIT SERV HIGH FOUNDATIO SEVERITY& N THREAT FUNCJ OFFICE 77234 [facility] OUT[facility] 7 7 FAMILY T VISIT PHYSICIAN 15 S PLLC MINUTES EMERGENCY 89564 [facility] 7 7 CLARISSA DEPARTMEN EMERGENCY T VISIT PHYS HIGH/URGE NT SEVERITY [facility]OS[facility] - 7 7 [facility] INPATIENT E HOSPITALS EMERGENCY 58431 [facility] DIAM[facility] DEPT 7 7 MEDICAL VISIT SERV HIGH FOUNDATIO SEVERITY& N THREAT [facility] [address] [facility] T EMERGENCY 40786 [facility] 7 7 CLARISSA DEPARTMEN EMERGENCY T VISIT PHYS HIGH/URGE NT SEVERITY EMERGENCY 17122 [facility] 7 7 CL[place]ISSA VISIT EMERGENCY HIGH PHYS SEVERITY& THREAT FUNJ EMERGENCY 16132 [facility] 7 7 PHYSICIAN U VISIT S, PLLC HIGH SEVERITY& THREAT FUNCJ OFFICE 63714 [facility] IC [facility] 7 7 MEDICAL ION SERV NEW/ESTAB FOUNDATIO PATIENT N 80 MIN EMERGENCY 53965 [facility] ROSENBAUM 7 7 MEDICAL DEPARTMEN SERV T VISIT FOUNDATIO MODERATE N SEVERITY EMERGENCY 65097 [facility] GEREMIAS DEPT 7 7 CLARISSA VISIT EMERGENCY HIGH PHYS SEVERITY& THREAT FUNJ EMERGENCY 84591 [facility] 6 6 CLARISSA DEPARTMEN EMERGENCY T VISIT PHYS HIGH/URGE NT SEVERITY EMERGENCY 59377 [facility] 6 6 CLARISSA PAT DEPARTMEN EMERGENCY T VISIT PHYS HIGH/URGE NT SEVERITY HOSPITAL [facility] [address] [facility] T OFFICE 52663 [facility] 6 6 FAMILY T VISIT PHYSICIAN 15 S PLLC MINUTES EMERGENCY 24618 [facility] MATIAS DEPT 6 6 CLARISSA VISIT EMERGENCY HIGH PHYS SEVERITY& THREAT FUNJ EMERGENCY 03290 [facility] DEPT 6 6 CLARISSA LAST VISIT EMERGENCY HIGH PHYS SEVERITY& THREAT FUNCJ EMERGENCY [address] 6 6 MEDICAL DEPARTMEN SERV T VISIT FOUNDATIO LOW/MODER N SEVERITY OFFICE 33460 KMSAndria FERNANDEZ [facility] 6 6 NURSE REGINALD T VISIT PRACTITIO 25 NER GR MINUTES EMERGENCY 08365 [facility] 6 6 CLARISSA PAT DEPARTMEN EMERGENCY T VISIT PHYS HIGH/URGE NT SEVERITY [facility]OS[facility]ITAL [facility] 6 [facility] [address] [facility] T OFFICE 90536 [facility] 6 6 FOOT & T NEW 30 ANKLE CE MINUTES OFFICE 20374 MANUEL ARNDT JAMIE [facility] 6 6 FAMILY T VISIT PHYSICIAN 15 S PLLC MINUTES EMERGENCY 81702 [facility] D[facility] INA 6 6 MEDICAL DEPARTMEN SERV T VISIT FOUNDATIO MODERATE N SEVERITY EMERGENCY 22443 [facility] DEPT 6 6 CLARISSA KATHY VISIT EMERGENCY HIGH PHYS SEVERITY& THREAT FUNCJ OFFICE 31845 MANUEL GREEN JAMIE OUTPATIEN 6 6 FAMILY T VISIT PHYSICIAN 25 S PLLC MINUTES EMERGENCY 37246 [facility] DEPT 6 6 CLARISSA PAT VISIT EMERGENCY HIGH PHYS SEVERITY& THREAT FUNCJ EMERGENCY 99179 [facility] DEPT 6 6 CLARISSA KATHY VISIT EMERGENCY HIGH PHYS SEVERITY& THREAT FUNCJ OFFICE 30991 [facility] 6 6 Y OF RTHY JERRY T VISIT [place] 15 HOSPI MINUTES OFFICE 98121 MANUEL ARNDT JAMIE OUTPATIEN 6 6 FAMILY T VISIT PHYSICIAN 15 S PLLC MINUTES EMERGENCY 46219 [facility] 6 6 CLARISSA PAT DEPARTMEN EMERGENCY T VISIT PHYS HIGH/URGE NT SEVERITY HOSPITAL [facility] - [address] [facility] T OFFICE 82352 [facility]EL [facility]A [facility] 5 5 FAMILY T VISIT PHYSICIAN 15 S PLLC MINUTES OFFICE 50686 [facility] 5 5 FAMILY T VISIT PHYSICIAN 25 S PLLC MINUTES OFFICE 39939 [facility] 5 5 FAMILY T VISIT PHYSICIAN 15 S PLLC MINUTES [facility]OSP[facility] [place] [facility] [address] [facility] T EMERGENCY 07975 [facility] DEPT 5 5 CLARISSA COLLINS VISIT EMERGENCY HIGH PHYS SEVERITY& THREAT FUNCJ EMERGENCY 71691 [place] 5 5 [facility] T VISIT HIGH/URGE NT SEVERITY EMERGENCY 04983 [facility] 5 5 CLARISSA - YORBA DEPARTMEN EMERGENCY PAT T VISIT PHYS HIGH/URGE NT SEVERITY [facility] [place] [facility] [address] [facility] T EMERGENCY 85401 [facility] 5 5 [facility] T VISIT FOUNDATIO MODERATE N SEVERITY [facility]OSPITAL [facility] - [address] [facility] T EMERGENCY 59155 [facility] 5 5 [facility] T VISIT HIGH/URGE NT SEVERITY [facility] [place] [facility] [address] [facility] T OFFICE 34426 MANUEL RODRIGUEZF [facility] 5 5 FAMILY T VISIT PHYSICIAN 25 S PLLC MINUTES EMERGENCY 97853 [place] 5 5 [facility] T VISIT MODERATE SEVERITY EMERGENCY 44821 [facility] 5 5 CLARISSA DEPARTMEN EMERGENCY T VISIT PHYS HIGH/URGE NT SEVERITY [facility] [place] [facility] [address] [facility] T OFFICE 06983 MANUEL AYALA OUTPATIEN 5 5 FAMILY T VISIT PHYSICIAN 15 S PLLC MINUTES [facility] [place] - 5 5 [facility] INPATIENT HOSPITAL EMERGENCY 84183 [facility] DEPT 5 5 CLARISSA COLLINS VISIT EMERGENCY HIGH PHYS SEVERITY& THREAT FUNCJ OFFICE 91176 MANUEL AYALA OUTPATIEN 5 5 FAMILY T VISIT PHYSICIAN 15 S PLLC MINUTES [facility]OS[facility] [place] [facility] [address] [facility] T EMERGENCY 74425 [facility] 5 5 CLARISSA PAT DEPARTMEN EMERGENCY T VISIT PHYS HIGH/URGE NT SEVERITY EMERGENCY 05006 [facility] 5 5 [facility] T VISIT MODERATE SEVERITY OFFICE 47933 MANUEL AYALA OUTPATIEN 5 5 FAMILY T VISIT PHYSICIAN 15 S PLLC MINUTES EMERGENCY 51438 [facility] II DEPT 5 5 CLARISSA THO VISIT EMERGENCY HIGH PHYS SEVERITY& THREAT [facility] [place] - [address] [facility] T OFFICE 16058 KMS JOSE ANTONIO MORAN [facility] 4 4 NURSE T NEW 45 PRACTITIO MINUTES [facility] GR OFF[facility] 58195 MANUEL AYALA OUTPATIEN 4 4 FAMILY T VISIT PHYSICIAN 15 S PLLC MINUTES OFFICE 96528 MANUEL AYALA OUTPATIEN 4 4 FAMILY T VISIT PHYSICIAN 25 S PLLC MINUTES EMERGENCY 90075 [facility] MATIAS DEPT 4 4 CLARISSA MUH VISIT EMERGENCY HIGH PHYSI SEVERITY& THREAT [facility] [place] - [address] [facility] T OFFICE [id number] [facility] [place] 4 4 PHYSICIAN LES T VISIT PRACTICE 15 L MINUTES [facility]OSPITAL [facility] - [address] [facility] T OFFICE 13582 [facility] OUTPATIEN 4 4 MEDICAL [facility]LL[facility] T VISIT SERV 25 FOUNDATIO MINUTES N OFFICE [id number] DILEEP [facility] 4 4 PHYSICIAN LES ION PRACTICE NEW/ESTAB L PATIENT 40 MIN OFFICE [id number] MANUEL AYALA OUTPATIEN 4 4 FAMILY T VISIT PHYSICIAN 15 S PLLC MINUTES
--- OUTSIDE RECORDS SUMMARY | 2017-06-14 12:36 | External Medical Summary Rpt ---
Author Author , UNIQUE CALHOUN Address Unknown Phone [email or web address] Immunization Name Date Rout CVX Reac Dose Comm Prov Is Faci e tion ent ider Refu lity Give sed n Hep 11-2 52 999 Hist H149 No H149 A, 0-20 oric adul 14 al t Info rmat ion - Sour ce Unsp ecif ied Hep 11-2 43 999 Hist H149 No H149 B, 0-20 oric adul 14 al t Info rmat ion - Sour ce Unsp ecif ied Hep 05-1 43 999 Hist H109 No H109 B, 9-20 oric adul 00 al t Info rmat ion - Sour ce Unsp ecif ied Hep 12-1 42 999 Hist H109 No H109 B, 3-19 oric adol 99 al Info High rmat Ris ion - Sour ce Unsp ecif ied Hep 10-2 43 999 Hist H109 No H109 B, 2-19 oric adul 99 al t Info rmat ion - Sour ce Unsp ecif ied
--- OUTSIDE RECORDS SUMMARY | 2017-06-14 12:36 | External Medical Summary Rpt ---
Author Author , UNIQUE CALHOUN Address Unknown Phone Immunization Name Date Rout CVX Reac Dose [...]
--- OUTSIDE RECORDS SUMMARY | 2017-06-14 12:48 | External Medical Summary Rpt ---
Author Author , UNIQUE CALHOUN Address Unknown Phone [email or web address] Care Team Providers Care Cell Cleaner Name Role Phone SIMONE CHICHI, SIMONE CHICHI Unavailable Unavailable ARNOLD, ARNOLD Unavailable Unavailable ARNOLD LAST, ARNOLD Unavailable Unavailable LAST EDUARDO LES, EDUARDO Unavailable Unavailable LES LAYTON, LAYTON Unavailable Unavailable AVALLONE, AVALLONE Unavailable Unavailable BEINEKE, BEINEKE Unavailable Unavailable PULIDO, PULIDO Unavailable Unavailable [facility] Unavailable Unavailable HOSPITAL, [facility] PHYSICIAN Unavailable Unavailable PRACTICE L, [facility], [facility] Unavailable Unavailable [facility] Unavailable Unavailable SERVICE, [facility] MICHAEL EDGAR, MICHAEL Unavailable [...] Unavailable [facility] Unavailable Unavailable PHYSICIAN PRA, [facility], Unavailable Unavailable [facility] JOSE ANTONIO LUISA, JOSE ANTONIO LUISA Unavailable Unavailable GALLO LINDA, GALLO LINDA Unavailable Unavailable DAXA II THO, DAXA II Unavailable Unavailable THO ROBERTH, ROBERTH Unavailable Unavailable ANGELA DECALVO, Unavailable Unavailable ANGELA DECALVO DEPA RAY, DEPA RAY Unavailable Unavailable MEI, MEI Unavailable Unavailable ALONDRA, ALONDRA Unavailable Unavailable PAMELA, PAMELA Unavailable Unavailable BEARDEN, BEARDEN Unavailable Unavailable FREEMAN SET, RFEEMAN SET Unavailable Unavailable GREEN, GREEN Unavailable Unavailable GREEN JAMIE, GREEN JAMIE Unavailable Unavailable LAYNE RHO, LAYNE Unavailable Unavailable RHO GUNDUMALLA, Unavailable Unavailable G[facility]DUM[facility]A G[facility]UM[facility] GOP, Unavailable Unavailable [facility] DIAZ ISIDRA, DIAZ Unavailable Unavailable ISIDRA ONEAL, ONEAL Unavailable Unavailable DAMIAN, DAMIAN Unavailable Unavailable DAMIAN LASHAWN, DAMIAN LASHAWN Un[facility] Un[facility] SERVICES O, [facility] EXTRUSION DIE COORDINATOR, EXTRUSION DIE COORDINATOR Unavailable Unavailable SHAY III, SHAY Unavailable Unavailable III SHAY III MARY KATE, Unavailable Unavailable SHAY III MARY KATE [facility] Un[facility] Unavailable [facility], [facility] MATTHEW, MATTHEW Unavailable Unavailable [facility] N[facility] Unavailable Unavailable PRACTITIONER GR, [facility] N[facility] PRACTITIONER GR GOOD JERRY, Unavailable Unavailable [facility] BRANDAN PET, BRANDAN PET Unavailable Unavailable BENSON, BENSON Unavailable Unavailable [facility] Un[facility], Unavailable Unavailable [facility] JESSICA, JESSICA Unavailable Unavailable [place] [...] Unavailable Unavailable RONAN, RONAN Unavailable Unavailable LINDA GALLO MD Unavailable Unavailable CONSULTING SRV, LINDA GALLO MD CONSULTING SRV [facility] Unavailable Unavailable EMS, [facility] Unavailable Unavailable EMS, [facility] Unavailable [facility]available PH[facility]ANS PLL[facility], [facility], Unavailable Unavailable PLLC, [facility], Unavailable Unavailable [facility], Unavailable Unavailable [facility] RICCI DUNN, Unavailable Unavailable RICCI DUNN [...] SOKAN BAB Unavailable Unavailable SOTINGEANU, Unavailable [facility]available [facility] Unavailable Unavailable EMERGENCY PHYS, [facility] EMERGENCY PHYS [facility] Unavailable Unavailable PHYSICIAN SERVI, [facility] PHYSICIAN SERVI WEBBER, WEBBER Unavailable Unavailable WEBBER RAY, WEBBER Unavailable Unavailable RAY SWINEY PAT, SWINEY Unavailable Unavailable PAT FLORENCIO TER, FLORENCIO TER Unavailable Unavailable [facility] Unavailable Unavailable HOSPITALS, [facility], Unavailable Unavailable [facility] Unavailable Un[facility] BRENNAN MARY KATE, BRENNAN Unavailable Unavailable MARY KATE JIM REGINALD, JIM Unavailable Unavailable REGINALD ALANIS, ALANIS Unavailable Unavailable [facility] Unavailable Unavailable DEPT RES[facility], [facility] Unavailable Unavailable DEPT RES[facility]MA, [facility] NICOLAS NICOLAS Unavailable Unavailable INDU, INDU Unavailable Unavailable ZAGUROVSKAYA, Unavailable Unavailable ZAGUROVSKAYA OLGA, OLGA Unavailable Unavailable Purpose Continuity of Care Document - 06-16-2014 through 2016 Problems Code Diagnosis DOS Provider Status K76.6 PORTAL 05-15-2017 HYPERTENSIO N R10.31 RIGHT LOWER 05-15-2017 [facility] PAIN R50.9 FEVER, 05-15-2017 UNSPECIFIED Z79.4 CORRECTION 05-15-2017 (CURRENT) USE OF INSULIN E80.4 GILBERT 05-15-2017 SYNDROME K70.30 ALCOHOLIC 05-15-2017 CIRRHOSIS OF LIVER WITHOUT ASCITES Z79.899 OTHER LONG 05-15-2017 TERM (CURRENT) DRUG THERAPY E11.9 TYPE 2 05-15-2017 DIABETES MELLITUS WITHOUT COMPLICATIO NS I10 ESSENTIAL 05-15-2017 (PRIMARY) HYPERTENSIO N Z79.84 CORRECTION 05-15-2017 (CURRENT) USE OF ORAL HYPOGLYCEMI C DRUGS K37 UNSPECIFIED 05-09-2017 APPENDICITI S D539 NUTRITIONAL 05-08-2017 [facility] UNSPEC[facility]IED [facility] D696 THROMBOCYTO 05-08-2017 [facility] PEN[place] [facility] UNSPECIFIED [facility]ATION R109 UNSPECIFIED 05-08-2017 [facility]BDOM[facility] PAIN [facility] R140 ABDOMINAL 05-08-2017 [facility] GASEOUS [facility] K7581 NONALCOHOLI 05-06-2017 [facility] C N EMERGENCY STEATOHEPAT PHYS ITIS E11.65 TYPE 2 05-05-2017 DIABETES MELLITUS WITH HYPERGLYCEM IA G89.29 OTHER 05-05-2017 CHRONIC PAIN K74.60 UNSPECIFIED 05-05-2017 CIRRHOSIS OF LIVER R10.2 PELVIC AND 05-05-2017 [...] KIDNEY DISEASE, OR UNSPECIFIED CHRONIC KIDNEY DISEASE K76.0 FATTY 03-31-2017 (CHANGE OF) LIVER, NOT ELSEWHERE CLASSIFIED N18.9 CHRONIC 03-31-2017 KIDNEY DISEASE, UNSPECIFIED R10.13 EPIGASTRIC 03-31-2017 PAIN D63.8 ANEMIA IN 03-31-2017 OTHER CHRONIC DISEASES CLASSIFIED ELSEWHERE K80.20 CALCULUS OF 03-31-2017 GALLBLADDER WITHOUT CHOLECYSTIT IS WITHOUT OBSTRUCTION M89.9 DISORDER OF 03-31-2017 BONE, UNSPECIFIED R10.819 ABDOMINAL 03-31-2017 TENDERNESS, UNSPECIFIED SITE Z88.6 ALLERGY 03-31-2017 STATUS TO ANALGESIC AGENT STATUS E119 TYPE 2 03-31-2017 [facility] DIABETES N PHYSICIAN MELLITUS SERVI WITHOUT COMPLICATIO NS E804 RAKESHBERT 03-31-2017 [facility] SYNDROME N PHYSICIAN SERVI K7290 [...] [facility] PAIN K72.90 HEPATIC 02-17-2017 FAILURE, UNSPECIFIED WITHOUT COMA K75.81 NONALCOHOLI 02-17-2017 C STEATOHEPAT ITIS (GUILLAUME) R51 HEADACHE 02-17-2017 Z91.19 PATIENT'S 02-17-2017 NONCOMPLIAN CE WITH OTHER MEDICAL TREATMENT AND REGIMEN I10 ESSENTIAL 02-14-2017 HOSPITAL PRIMARY MEDICINE HYPERTENSIO SERVICES O N K7200 ACUTE AND 02-14-2017 HOSPITAL SUBACUTE MEDICINE HEPATIC SERVICES O FAILURE WITHOUT COMA R51 HEADACHE 02-14-2017 [facility] 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 [facility] 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 USE [facility] INSULIN [facility] Z7984 CORRECTION 02-14-2017 [facility] USE OF [facility] HYPOGLYCEMI C DRUGS Z9119 PATIENTS 02-14-2017 [facility] NONCOMPLIAN [facility] CE W/OTH HOSPITAL MED TX & REGIMEN I11.9 HYPERTENSIV 01-31-2017 E HEART DISEASE WITHOUT HEART FAILURE K92.0 HEMATEMESIS 01-31-2017 D649 ANEMIA 01-31-2017 [place] [facility] K922 GASTROINTES 01-30-2017 [facility] TINAL [facility] HEMORRHAGE [facility] UNSPECIFIED E1165 TYPE 2 01-29-2017 [facility] DIABETES [facility]ILY MELLITUS PHYSICIANS WITH [facility] [place]GLYC[place] O69017 PAIN IN 01-29-2017 [facility] RIGHT FOOT FAMILY PHYSICIANS [facility] H46689 PAIN IN 01-29-2017 [facility] LEFT FOOT FAMILY PHYSICIANS [facility] M79.671 PAIN IN 01-28-2017 RIGHT FOOT M79.672 PAIN IN 01-28-2017 LEFT FOOT R60.0 LOCALIZED 01-28-2017 [facility] R600 LOCALIZED 01-26-2017 [facility] EDEMA N EMERGENCY PHYS R739 HYPERGLYCEM 01-26-2017 [facility] IA N EMERGENCY UNSPECIFIED PHYS D62 ACUTE 01-15-2017 [facility] AGIC ANEMIA K209 ESOPHAGITIS 01-15-2017 [facility] UNSPECIFIED K921 MELENA 01-15-2017 [facility] D509 IRON 01-12-2017 [facility] DEFICIENCY N PHYSICIAN ANEMIA SERVI UNSPECIFIED I160 HYPERTENSIV 01-12-2017 [facility] E URGENCY N PHYSICIAN SERVI K219 GASTRO-ESOP 01-12-2017 [facility] H REFLUX N PHYSICIAN DISEASE SERVI WITHOUT ESOPHAGITIS N179 ACUTE 01-12-2017 [facility] UNSPECIFIED Z7682 AWAITING 01-12-2017 [facility] STATUS Z79.2 CORRECTION 12-31-2016 (CURRENT) USE OF ANTIBIOTICS T19718 EFFUSION 12-27-2016 [facility] RIGHT ANKLE N EMERGENCY PHYS Z35009 EFFUSION 12-27-2016 [facility] LEFT ANKLE N EMERGENCY PHYS R06.00 DYSPNEA, 12-26-2016 UNSPECIFIED N390 URINARY 12-20-2016 [facility] TRACT N EMERGENCY INFECTION PHYS SITE NOT SPECIFIED R0609 OTHER FORMS 12-20-2016 [facility] [place] [facility] [place] RADIOLOGY R110 NAUSEA 12-20-2016 [facility] N EMERGENCY PHYS R079 CHEST PAIN 12-16-2016 [facility] R1084 GENERALIZED 12-16-2016 [facility] ABDOMINAL SERV PAIN [facility] R9431 ABNORMAL 12-16-2016 [facility] ELECTROCARD SERV IOGRAM [facility] I8501 ESOPHAGEAL 11-22-2016 [facility] VARICES [facility] WITH [facility] BLEEDING R1310 DYSPHAGIA 11-22-2016 [facility]PEC[facility] Z0189 ENCOUNTER 11-22-2016 [facility] OTHER SERV SPECIFIED [facility] SPECIAL EXAMINATION S K228 OTHER 11-21-2016 [facility] SPECIFIED SERV DISEASES OF FOUNDATION ESOPHAGUS R490 DYSPHONIA 11-21-2016 [facility] R03311A OTH FORGEN 11-20-2016 [place] [facility] OBJ RESP [...] FINDING OF LUNG FIELD Z4682 ENCOUNTER 11-17-2016 [facility] SERV ADJUST [facility] NON-VASCULA R CATHETER I2119 ST 11-16-2016 [facility] ELEV[place] [facility] SC INVOLV [facility]ATION OTH CORONARY ART INF WALL R000 TACHYCARDIA 11-16-2016 [facility] UNSPECIFIED [facility] K2210 ULCER OF 11-14-2016 [place] [facility] ESOPHAGUS SERV WITHOUT [facility] BLEEDING E1169 TYPE 2 11-13-2016 [facility] NURSE DIABETES PRACTITIONE MELLITUS R GR W/OTH SPEC COMPLICATIO N E8770 FLUID 11-13-2016 [facility] OVERLOAD [facility] UNSPECIFIED [facility]ATION J9602 ACUTE 11-13-2016 [facility]AT[facility] FAILURE [facility] WITH HYPERCAPNIA J9811 ATELECTASIS 11-13-2016 [facility] L7059KW OTHER 11-13-2016 [facility] POSTPROCEDU SERV RAL SHOCK [facility] SUBSEQUENT ENCOUNTER R0989 OTH SPEC SX 11-12-2016 [facility] & SIGNS SERV INVLV THE [facility]OUND[facility] CIRC & RESP SYS E806 OTHER 11-11-2016 [place] [facility] DISORDERS [facility] OF [facility] BILIRUBIN METABOLISM E872 ACIDOSIS 11-11-2016 [facility] E876 HYPOKALEMIA 11-11-2016 [facility] I4891 UNSPECIFIED 11-11-2016 [facility] ATRIAL [facility] FIBRILLATIO FOUNDATION N I959 HYPOTENSION 11-11-2016 S NURSE PRACTITIONCorrie UNSPECIFIED R GR J849 INTERSTITIA 11-11-2016 [facility] L PULMONARY SERV DISEASE [facility] UNSPECIFIED J984 OTHER 11-11-2016 [facility] DISORDERS [facility] OF LUNG [facility] Z452 ENCOUNTER 11-09-2016 [facility] ADJUSTMENT& SERV MGMT [facility] VASCULAR ACCESS DEVICE E875 HYPERKALEMI 11-08-2016 [facility] NURSE Javy CARLOS R GR I459 CONDUCTION 11-08-2016 [place] [facility] DISORDER [facility] UNSPECIFIED [facility]ATION K920 HEMATEMESIS 11-08-2016 [facility] K8020 CALCULUS GB 11-07-2016 [facility] W/O SERV CHOLECYSTIT [facility] IS W/O OBSTRUCTION R188 OTHER 11-07-2016 [facility] ASCITES [facility] Z8719 PERSONAL 11-07-2016 [place] [facility] H[facility]ORY [facility] OTHER [facility] DISEASES DIGESTIVE SYSTEM R0602 SHORTNESS 11-06-2016 [facility] R531 WEAKNESS 11-06-2016 [facility] M542 CERVICALGIA 10-21-2016 [facility] M6281 MUSCLE 10-21-2016 [facility] R1030 LOWER 10-21-2016 [place] [facility] ABDOMINAL SERV PAIN [facility] UNSPECIFIED R05 COUGH 10-09-2016 [facility] J189 PNEUMONIA 09-22-2016 [place] UNSPECIFIED MEDICAL ORGANISM IMAGING ASS Z09 ENC F/U 09-22-2016 [place] EXAM AFTR MEDICAL CMPL TX OTH IMAGING ASS THAN MALIG NEOPLSM R509 FEVER 09-19-2016 [place] U[facility]PECIFIED [facility] IMAGING ASS H1133 CONJUNCTIVA 07-28-2016 [facility] L N EMERGENCY HEMORRHAGE PHYS BILATERAL R030 ELEVATED 07-28-2016 [facility] BLOOD-PRESS N EMERGENCY URE READING PHYS WITHOUT DX HTN R0789 OTHER CHEST 07-28-2016 [facility] PAIN N EMERGENCY PHYS W568LIC OTHER 07-28-2016 [facility] [place] SPECIFIED RADIOLOGY INJURIES THORAX INITIAL ENC H1032 UNSPECIFIED 07-24-2016 [facility] ACUTE FAMILY CONJUNCTIVI PHYSICIANS TIS LEFT PLL EYE H1132 CONJUNCTIVA 07-22-2016 [facility] L N EMERGENCY HEMORRHAGE PHYS LEFT EYE F706FZZ CONTUSION 07-22-2016 [facility] OF N EMERGENCY ABDOMINAL PHYS WALL INITIAL ENCOUNTER E8342 HYPOMAGNESE 07-01-2016 [facility] [place] N EMERGENCY PHYS G0430 ACUTE 07-01-2016 [facility] NECROTIZING N EMERGENCY PHYS HEMORRHAGIC ENCEPHALOPA THY UNS R1110 VOMITING 06-28-2016 [place] [facility]PEC[facility] G4710 HYPERSOMNIA 06-11-2016 LINDA GALLO MD UNSPECIFIED CONSULTING SRV D490 NEOPLASM OF 06-07-2016 [facility] UNS SERV BEHAVIOR [facility] DIGESTIVE SYSTEM K766 PORTAL 06-07-2016 [facility] HYPERTENSIO SERV N [facility]OUNDATION R161 SPLENOMEGAL 06-07-2016 [place] [facility] Y NOT SERV ELSEWHERE [facility] CLASSIFIED G479 SLEEP 06-03-2016 [place] DISORDER [facility] UNSPECIFIED HOSPITAL R0683 SNORING 06-03-2016 [facility] R5383 OTHER 06-03-2016 [facility] B17623 PAIN IN 05-20-2016 [place] UNSPECIFIED FOOT & LIMB ANKLE CE R072 PRECORDIAL 05-16-2016 LINDA JOSHI MD CONSULTING SRV G4733 OBSTRUCTIVE 05-02-2016 [facility] SLEEP [facility]ILY [facility] M38038I TOX EFF OTH 04-08-2016 [facility] GASES N EMERGENCY FUMES & PHYS VAPORS ACC INITIAL ENC M545 LOW BACK 03-04-2016 [facility] PAIN [facility] R112 NAUSEA WITH 03-04-2016 [facility] UNSPECIFIED R1033 PERIUMBILIC 02-28-2016 [facility] AL PAIN N EMERGENCY PHYS R5381 OTHER 01-29-2016 [facility] MALAISE N EMERGENCY PHYS R17 UNSPECIFIED 01-26-2016 [facility] ALICE HOSPI L0390 CELLULITIS 01-08-2016 [facility] UNSPECIFIED [facility]ILY PHYSICIANS PLL[facility] M546 PAIN IN 11-10-2015 [facility] THORACIC N EMERGENCY SPINE PHYS S72595 MUSCLE 11-10-2015 [facility] SPASM OF N EMERGENCY BACK PHYS K6389 OTHER 09-05-2015 [facility] [place] SPECIFIED RADIOLOGY DISEASES OF INTESTINE B370 CANDIDAL 08-15-2015 [facility] STOMATITIS [facility] K222 ESOPHAGEAL 07-26-2015 [facility] OBSTRUCTION REGIONAL PHYSICIAN PRA K319 DISEASE OF 07-26-2015 [place] [facility] DUODENUM GROUP PS UNSPECIFIED K449 DIAPHRAGMAT 07-26-2015 [place] [facility] ANESTHESIA W/O GROUP PS OBSTRUCTION OR GANGRENE 4660 ACUTE 06-07-2015 [facility] BRONCHITIS FAMILY PHYSICIANS [facility] 11342 ABDOMINAL 06-07-2015 [facility] PAIN, FAMILY GENERALIZED PHYSICIANS [facility] 7242 LUMBAGO 06-01-2015 [facility] 7862 COUGH 06-01-2015 [facility] 69129 ABDOMINAL 06-01-2015 [facility] [place] PAIN RIGHT RADIOLOGY LOWER QUADRANT 52633 DIAB W/O 05-31-2015 [facility] COMP TYPE N EMERGENCY II/UNS NOT PHYS STATED UNCNTRL 4019 UNSPECIFIED 05-31-2015 [facility] ESSENTIAL [facility] HYPERTENSIO [facility] N 4549 ASYMPTOMATI 05-31-2015 [facility] C VARICOSE [facility]INS [facility] 5715 CIRRHOSIS 05-31-2015 [facility]IVER [facility] WITHOUT HOSPITAL MENTION OF ALCOHOL 75671 OSTEOARTHRO 05-31-2015 [facility] S UNSPEC [facility] GEN/LOC UNSPEC SITE 7213 LUMBOSACRAL 05-31-2015 [facility] N EMERGENCY SPONDYLOSIS PHYS WITHOUT MYELOPATHY 02933 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 [facility] 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 46578 OTHER 05-31-2015 [facility] ASCITES [facility] V5867 LONG-TERM 05-31-2015 [facility] USE OF [facility]OSP[facility] V5869 LONG-TERM 05-31-2015 [facility] USE OF HOSPITAL OTHER MEDICATIONS 51459 NAUSEA WITH 05-26-2015 [facility] VOMITING [facility] 50416 ABDOMINAL 05-26-2015 [facility] PA[facility] RIGHT N EMERGENCY UPPER PHYS QUAD[facility]ANT 00042 ABDOMINAL 05-26-2015 [facility] PAIN, LEFT N EMERGENCY LOWER PHYS QUAD[facility]ANT 92450 ABDOMINAL 05-26-2015 [facility] PAIN, N EMERGENCY EPIGASTRIC PHYS V145 PERSONAL 05-26-2015 [facility] HISTORY OF COMMUNITY ALLERGY TO HOSPITAL NARCOTIC AGENT 04824 ABDOMINAL 05-04-2015 [facility] UNSPECIFIED SITE 5718 OTHER 04-12-2015 [facility] CHRONIC [facility] C LIVER DISEASE 94936 UNSPEC 04-12-2015 [facility] INJURY LIVR N EMERGENCY W/O PHYS MENTION OPN WOUND IN CAV 22782 DIAB W/O 03-27-2015 [facility] MENTION FAMILY COMP TYPE PHYSICIANS II/UNS TYPE PLLC UNCNTRL 68985 DIVERTICULI 03-27-2015 [facility] TIS OF FAMILY COLON PHYSICIANS PLLC 5589 OTH&UNSPEC 03-20-2015 [facility] NONINFECTIO N PHYSICIAN US SERVI GASTROENTER ITIS&COLITI S 5723 PORTAL 03-16-2015 [facility] [place] HYPERTENSIO RADIOLOGY N 22519 ABDOMINAL 03-16-2015 [facility] PERIUMBILIC PHYS V146 PERSONAL 03-16-2015 [place] HISTORY OF COMMUNITY ALLERGY TO HOSPITAL ANALGESIC AGENT 5289 OTHER&UNSPE 02-14-2015 [facility] CIFIED N EMERGENCY DISEASES PHYS THE ORAL SOFT TISSUES 5290 GLOSSITIS 02-14-2015 [facility] N EMERGENCY PHYS 2382 NEOPLASM OF 01-24-2015 [facility] UNCERTAIN FAMILY BEHAVIOR OF PHYSICIANS SKIN PLLC 4871 INFLUENZA 10-31-2014 [facility] WITH OTHER N PHYSICIAN RESPIRATORY SERVI MANIFESTATI ONS 30416 FEVER 10-31-2014 [facility] UNSPECIFIED N PHYSICIAN SERVI 486 PNEUMONIA, 10-30-2014 [facility] ORGANISM N EMERGENCY UNSPECIFIED PHYS 33429 OBESITY, 08-24-2014 [facility] NURSE UNSPECIFIED PRACTITIONE R GR V069 NEED PROPH 07-28-2014 [facility] VACCINATION DISTRICT W/UNSPEC [facility] DEPT COMB RESHMA VACCINE 32451 DISORDER OF 07-05-2014 [facility] [place] BONE AND RADIOLOGY CARTILAGE UNSPECIFIED 7948 NONSPECIFIC 07-05-2014 [facility] [place] ABNORMAL RADIOLOGY RESULTS LIVR FUNCTION STUDY 96568 DYSFUNCTION 06-29-2014 [place] OF PHYSICIAN EUSTACHIAN PRACTICE L TUBE 68434 SUBJECTIVE 06-29-2014 [place] TINNITUS PHYSICIAN PRACTICE L 93248 SENSORINEUR 06-29-2014 [place] AL HEARING PHYSICIAN LOSS PRACTICE L BILATERAL 7804 DIZZINESS 06-29-2014 [place] AND PHYSICIAN GIDDINESS PRACTICE L 4561 ESOPHAGEAL 06-27-2014 [place] [facility] VARICES SERV WITHOUT FOUNDATION MENTION OF BLEEDING 3899 UNSPECIFIED 06-21-2014 [place] HEARING PHYSICIAN LOSS PRACTICE L Allergies, Adverse Reactions, Alerts Clinical Alert Notifications [...] -2 .0 00 NT ti EP 82 00 UC ve RA 35 20 20 98 [place] ZO 19 17 17 98 LE 3 26 CV S MA PH G AR DR [place] CY 40 LL MG C, CA DB P A CV S PH AR JUANY CY #3 01 6 [place] 65 08 09 12 2 00 KE Ac OM 16 -2 -2 .0 00 NT ti ET 20 01 UC ve THOMPSON 52 20 20 05 [place] ZI 11 17 17 45 NE 0 86 CV S 25 PH AR MG MA CY TA BL LL ET C, DB A CV S PH AR JUANY CY #3 01 6 CA 00 09 09 60 30 00 KE Ac RV 37 -0 -2 .0 00 NT ti ED 83 01 UC ve IL 63 20 20 02 [place] OL 40 17 17 79 5 50 CV 25 S PH MG AR MA TA CY BL ET LL C, DB A CV S PH AR JUANY CY #3 01 6 NI 24 09 09 30 30 00 KE Ac FE 97 -0 -2 .0 05 NT ti DI 90 26 UC ve PI 01 20 20 29 [place] NE 00 17 17 71 1 72 CL ER IN IC 60 PH MG AR MA TA CY BL ET AM 68 09 09 30 30 00 KE Ac LO 18 -0 -2 .0 05 NT ti DI 00 26 UC ve PI 75 20 20 29 [place] NE 20 17 17 69 3 86 CL BE IN SY IC LA TE PH AR 10 MA CY MG TA B ES 00 08 09 30 30 00 KE Ac OM 37 -0 -0 .0 00 NT ti EP 82 00 UC ve RA 35 20 20 [...] AR MA CY #3 01 6 69 08 09 [...] ve G 79 20 20 04 [place] SC 75 17 17 96 X 9 17 [...] 80 2- 1- 00 01 UC ve SC 21 20 20 03 [place] DE 61 [...] JUANY CY #3 01 6 ME 68 07 08 60 30 00 KE Ac TF 38 -1 -0 .0 00 NT ti OR 20 5- 4- 00 01 UC ve SC 76 20 20 02 [place] N 01 17 17 43 HC 0 90 CV L S 1, PH 00 AR 0 MA MG CY TA LL BL C, ET DB A CV S PH AR JUANY CY #3 01 6 69 07 08 [...] JUANY CY #3 01 6 AP 00 07 [...] 80 9- 8- 00 01 UC ve SC 21 20 20 03 [place] DE 61 [...] MA CY #3 01 6 ME 68 06 07 60 30 00 KE Ac TF 38 -1 -2 .0 00 NT ti OR 20 9- 1- 00 01 UC ve SC 76 20 20 02 [place] N 01 [...] AR JUANY CY #3 01 6 69 06 07 [...] 20 3- 3- 00 01 UC ve SC 76 20 20 02 [place] N 01 [...] ve G 79 20 20 97 [place] SC 75 17 17 10 X 9 96 CV 75 S -2 PH 5 AR KW MA IK CY PE N LL C, DB A CV S PH AR MA CY #3 01 6 FU 00 05 06 30 30 00 KE Ac RO 37 -2 -2 .0 00 NT ti SE 80 4- 3- 00 01 UC ve SC 21 20 20 03 [place] DE 61 [...] PH AR MA CY #3 01 6 SC 57 05 06 30 30 00 KE [...] PH AR MA CY #3 01 6 SC 57 04 05 30 30 00 KE [...] 20 3- 2- 00 00 UC ve SC 76 20 20 99 [place] N 01 [...] PH AR JUANY CY #3 01 6 KILLIAN 53 04 [...] JUANY CY #3 01 6 TI 00 04 [...] ve G 79 20 20 97 [place] SC 75 17 17 10 X 9 96 [...] JUANY CY #3 01 6 XI 65 03 [...] PH AR JUANY CY #3 01 6 SC 57 03 04 30 30 00 KE [...] JUANY CY #3 01 6 ME 68 03 04 60 30 00 KE Ac TF 38 -1 -0 .0 00 NT ti OR 20 7- 7- 00 00 UC ve SC 76 20 20 99 [place] N 01 17 17 49 HC 0 47 CV L S 1, PH 00 AR 0 MA MG CY TA LL BL C, ET DB A CV S PH AR JUANY CY #3 01 6 ES 00 03 [...] 44 7- 7- 00 26 UC ve SC 29 20 20 25 [place] DE 93 [...] 80 1- 0- 00 00 UC ve SC 20 20 20 97 [place] DE 81 [...] 00 [place] RA 30 17 17 11 SC 5 65 CV DE S PH 10 AR MA MG CY TA LL BL C, ET DB A CV S PH AR MA CY #3 01 6 SC 57 02 02 30 30 00 KE [...] 80 1- 0- 00 00 UC ve SC 20 20 20 97 [place] DE 81 17 17 66 0 62 CV 20 S PH MG AR MA TA CY BL ET LL C, DB A CV S PH AR JUANY CY #3 01 6 ME 68 01 02 60 30 00 KE Ac TF 38 -1 -1 .0 00 NT ti OR 20 0- 0- 00 00 UC ve SC 76 20 20 99 [place] N 01 17 17 49 HC 0 47 CV L S 1, PH 00 AR 0 MA MG CY TA LL BL C, ET DB A CV S PH AR JUANY CY #3 01 6 LE 65 01 [...] AR JUANY CY #3 01 6 69 01 02 [...] ve G 79 20 20 97 [place] SC 75 16 17 10 X 9 96 [...] RESHMA RESHMA INTR AMUS CULA R USE Vital Signs 11-08-2016 05:05 Name Value Interpretat Reference Comment ion Range Glucose 456 mg/dL 74-99 [facility] 11-08-2016 02:53 Name Value Interpretat Reference Comment ion Range Glucose 419 mg/dL 74-99 [facility] Results Labs Lab Lab Date Result Refere Interp Status Commen Order Detail nces retati t Range on Hgb A1c MFr Bld (05-08-2017 05:53) Hgb A1c 6.7 % 4.7-6.0 complet MFr 017 ed Bld 05:53 Path Rev Bld -Imp (05-08-2017 02:25) Path [id number] complet Rev Bld 017 04 ed -Imp 02:25 refer to patholo gy laborat ory SCT COPATH COPATH report to follow L Bacteria Ur Cult (05-08-2017 01:09) CC XXX NOTAP complet VC-aCnc 017 NOT ed 01:09 APPLICA BLE L Bacteri [id number] complet a XXX 017 06 No ed Anaerob 01:09 growth e+Aerob (qualif e Cult ier value) SCT NG1 NO GROWTH DAY 1. L Lactate Bld-sCnc (05-07-2017 23:23) Lactate 2.2 complet 017 mmol/L ed Bld-sCn 23:23 c Magnesium SerPl-mCnc (05-07-2017 23:23) Magnesi 2.2 1.9-2.4 complet um 017 mg/dL ed SerPl-m 23:23 Cnc Phosphate SerPl-mCnc (05-07-2017 23:23) Phospha 3.8 2.5-4.5 complet te 017 mg/dL ed SerPl-m 23:23 Cnc Hgb A1c MFr Bld (05-07-2017 23:23) Hgb A1c 6.8 % 4.7-6.0 complet MFr 017 ed Bld 23:23 Bacteria XXX Anaerobe+Aerobe Cult (05-07-2017 23:23) Bacteri [id number] complet a XXX 017 06 No ed Anaerob 23:23 growth e+Aerob (qualif e Cult ier value) SCT NGB6 NO GROWTH DAY 5. L Hgb A1c MFr Bld (04-29-2017 07:19) Hgb A1c 6.0 % 4.7-6.0 complet MFr 017 ed Bld 07:19 Lactate Bld-sCnc (04-02-2017 05:54) Lactate 1.9 complet 017 mmol/L ed Bld-sCn 05:54 c Magnesium SerPl-mCnc (04-02-2017 05:54) Magnesi 1.7 1.9-2.4 complet um 017 mg/dL ed SerPl-m 05:54 Cnc Lactate Bld-sCnc (04-01-2017 04:12) Lactate 2.8 complet 017 mmol/L ed Bld-sCn 04:12 c Magnesium SerPl-mCnc (04-01-2017 04:12) Magnesi 1.6 1.9-2.4 complet um 017 mg/dL ed SerPl-m 04:12 Cnc Lactate Bld-sCnc (03-31-2017 23:10) Lactate 4.1 complet 017 mmol/L ed Bld-sCn 23:10 c Lactate Bld-sCnc (03-31-2017 20:02) Lactate 8.1 complet 017 mmol/L ed Bld-sCn 20:02 c Lipase SerPl-cCnc (03-31-2017 20:02) Lipase 37 U/L 19-63 complet SerPl-c 017 ed Cnc 20:02 Lipase SerPl-cCnc (03-28-2017 17:12) Lipase 45 U/L 19-63 complet SerPl-c 017 ed Cnc 17:12 Magnesium SerPl-mCnc (01-14-2017 02:39) Magnesi 1.8 1.9-2.4 complet um 017 mg/dL ed SerPl-m 02:39 Cnc Phosphate SerPl-mCnc (01-14-2017 02:39) Phospha 3.9 2.5-4.5 complet te 017 mg/dL ed SerPl-m 02:39 Cnc MDRO Wnd (01-12-2017 03:50) CC XXX NOTAP complet VC-aCnc 017 NOT ed 03:50 APPLICA BLE L Bacteri [id number] complet a XXX 017 00 not ed Anaerob 03:50 isolate e+Aerob d e Cult (qualif ier value) SCT NMDR NO MULTI DRUG RESISTA NT ORGANIS MS ISOLATE D L Lactate Bld-sCnc (01-12-2017 00:13) Lactate 4.2 complet 017 mmol/L ed Bld-sCn 00:13 c Lipase SerPl-cCnc (01-12-2017 00:13) Lipase 56 U/L 19-63 complet SerPl-c 017 ed Cnc 00:13 Osmolality SerPl (12-17-2016 05:18) Osmolal 300 275-295 complet ity 017 mOsm/kg ed SerPl 05:18 Bacteria Ur Cult (12-16-2016 23:56) CC XXX NOTAP complet VC-aCnc 017 NOT ed 23:56 APPLICA BLE L Bacteri [id number] complet a XXX 017 1 ed Anaerob 23:56 Staphyl e+Aerob ococcus e Cult epiderm idis (organi sm) SCT SEPI STAPHYL OCOCCUS EPIDERM IDIS L Magnesium SerPl-mCnc (11-20-2016 03:42) Magnesi 1.5 1.9-2.4 complet um 017 mg/dL ed SerPl-m 03:42 Cnc Phosphate SerPl-mCnc (11-20-2016 03:42) Phospha 2.8 2.5-4.5 complet te 017 mg/dL ed SerPl-m 03:42 Cnc MDRO Wnd (11-18-2016 10:50) Bacteri [id number] complet a XXX 017 06 No ed Anaerob 10:50 growth e+Aerob (qualif e Cult ier value) SCT NG1 NO GROWTH DAY 1. L CC XXX NOTAP complet VC-aCnc 017 NOT ed 10:50 APPLICA BLE L Ca-I SerPl ISE-sCnc (11-18-2016 04:00) Ca-I 4.7 4.6-5.1 complet SerPl 017 mg/dL ed ISE-sCn 04:00 c Magnesium SerPl-mCnc (11-18-2016 04:00) Magnesi 1.9 1.9-2.4 complet um 017 mg/dL ed SerPl-m 04:00 Cnc Phosphate SerPl-mCnc (11-18-2016 04:00) Phospha 3.3 2.5-4.5 complet te 017 mg/dL ed SerPl-m 04:00 Cnc Magnesium SerPl-mCnc (11-17-2016 03:15) Magnesi 1.8 1.9-2.4 complet um 017 mg/dL ed SerPl-m 03:15 Cnc Phosphate SerPl-mCnc (11-17-2016 03:15) Phospha 4.0 2.5-4.5 complet te 017 mg/dL ed SerPl-m 03:15 Cnc Ca-I SerPl ISE-sCnc (11-16-2016 16:06) Ca-I 4.6 4.6-5.1 complet SerPl 017 mg/dL ed ISE-sCn 16:06 c Magnesium SerPl-mCnc (11-16-2016 16:06) Magnesi 1.8 1.9-2.4 complet um 017 mg/dL ed SerPl-m 16:06 Cnc Phosphate SerPl-mCnc (11-16-2016 16:06) Phospha 3.6 2.5-4.5 complet te 017 mg/dL ed SerPl-m 16:06 Cnc Magnesium SerPl-mCnc (11-16-2016 02:24) Magnesi 1.8 1.9-2.4 complet um 017 mg/dL ed SerPl-m 02:24 Cnc Phosphate SerPl-mCnc (11-16-2016 02:24) Phospha 2.4 2.5-4.5 complet te 017 mg/dL ed SerPl-m 02:24 Cnc Magnesium SerPl-mCnc (11-14-2016 02:11) Magnesi 1.8 1.9-2.4 complet um 017 mg/dL ed SerPl-m 02:11 Cnc Phosphate SerPl-mCnc (11-14-2016 02:11) Phospha 3.2 2.5-4.5 complet te 017 mg/dL ed SerPl-m 02:11 Cnc Magnesium SerPl-mCnc (11-13-2016 02:12) Magnesi 1.7 1.9-2.4 complet um 017 mg/dL ed SerPl-m 02:12 Cnc Phosphate SerPl-mCnc (11-13-2016 02:12) Phospha 03-08-2 3.1 2.5-4.5 complet te 017 mg/dL ed SerPl-m 02:12 Cnc Magnesium SerPl-mCnc (11-12-2016 10:15) Magnesi 1.9 1.9-2.4 complet um 017 mg/dL ed SerPl-m 10:15 Cnc Phosphate SerPl-mCnc (11-12-2016 10:15) Phospha 3.3 2.5-4.5 complet te 017 mg/dL ed SerPl-m 10:15 Cnc Lactate Bld-sCnc (11-12-2016 02:09) Lactate 2.3 complet 017 mmol/L ed Bld-sCn 02:09 c Ca-I SerPl ISE-sCnc (11-12-2016 02:09) Ca-I 4.2 4.6-5.1 complet SerPl 017 mg/dL ed ISE-sCn 02:09 c Magnesium SerPl-mCnc (11-12-2016 02:09) Magnesi 1.5 1.9-2.4 complet um 017 mg/dL ed SerPl-m 02:09 Cnc Phosphate SerPl-mCnc (11-12-2016 02:09) Phospha 3.7 2.5-4.5 complet te 017 mg/dL ed SerPl-m 02:09 Cnc MDRO Wnd (11-11-2016 17:16) CC XXX NOTAP complet VC-aCnc 017 NOT ed 17:16 APPLICA BLE L Bacteri [id number] complet a XXX 017 00 not ed Anaerob 17:16 isolate e+Aerob d e Cult (qualif ier value) SCT NMDR NO MULTI DRUG RESISTA NT ORGANIS MS ISOLATE D L Lactate Bld-sCnc (11-11-2016 15:50) Lactate 3.5 complet 017 mmol/L ed Bld-sCn 15:50 c Ca-I SerPl ISE-sCnc (11-11-2016 11:21) Ca-I 4.2 4.6-5.1 complet SerPl 017 mg/dL ed ISE-sCn 11:21 c Bilirub Direct SerPl-mCnc (11-11-2016 02:16) Bilirub 2.9 0.0-0.2 complet Direct 017 mg/dL ed 02:16 SerPl-m Cnc Lactate Bld-sCnc (11-10-2016 10:28) Lactate 11-10-2 1.5 complet 017 mmol/L ed Bld-sCn 10:28 c Lactate Bld-sCnc (11-10-2016 05:43) Lactate 11-10-2 1.7 complet 017 mmol/L ed Bld-sCn 05:43 c Lactate Bld-sCnc (11-10-2016 02:04) Lactate 11-10-2 1.6 complet 017 mmol/L ed Bld-sCn 02:04 c Magnesium SerPl-mCnc (11-10-2016 02:04) Magnesi 11-10- 1.6 1.9-2.4 complet um 017 mg/dL ed SerPl-m 02:04 Cnc Phosphate SerPl-mCnc (11-10-2016 02:04) Phospha 2.6 2.5-4.5 complet te 017 mg/dL ed SerPl-m 02:04 Cnc Lactate Bld-sCnc (11-10-2016 01:41) Lactate 11-10-2 TCON complet 017 Multipl ed Bld-sCn 01:41 e SCM c orders. Tests consoli dated. L mmol/L Lactate Bld-sCnc (11-09-2016 21:24) Lactate --2 1.8 complet 017 mmol/L ed Bld-sCn 21:24 c Lactate Bld-sCnc (11-09-2016 18:05) Lactate -04-2 2.1 complet 017 mmol/L ed Bld-sCn 18:05 c Lactate Bld-sCnc (11-09-2016 13:59) Lactate 03-04-2 2.2 complet 017 mmol/L ed Bld-sCn 13:59 c Lactate Bld-sCnc (11-09-2016 10:36) Lactate 03--2 TCON complet 017 Multipl ed Bld-sCn 10:36 e SCM c orders. Tests consoli dated. L mmol/L Lactate Bld-sCnc (11-09-2016 10:36) Lactate -04-2 2.3 complet 017 mmol/L ed Bld-sCn 10:36 c Lactate Bld-sCnc (11-09-2016 06:35) Lactate 11-09- 2.6 complet 017 mmol/L ed Bld-sCn 06:35 c Lactate Bld-sCnc (11-09-2016 01:58) Lactate 2.4 complet 017 mmol/L ed Bld-sCn 01:58 c Lactate Bld-sCnc (11-08-2016 22:53) Lactate 4.0 complet 017 mmol/L ed Bld-sCn 22:53 c Lactate Bld-sCnc (11-08-2016 18:52) Lactate 6.1 complet 017 mmol/L ed Bld-sCn 18:52 c Lactate Bld-sCnc (11-08-2016 14:07) Lactate 8.2 complet 017 mmol/L ed Bld-sCn 14:07 c Ketones SerPl-mCnc (11-08-2016 14:07) Ketones NEG NEGATIV complet 017 NEGATIV E ed SerPl-m 14:07 E L Cnc MDRO Wnd (11-08-2016 13:15) CC XXX NOTAP complet VC-aCnc 017 NOT ed 13:15 APPLICA BLE L Bacteri [id number] complet a XXX 017 00 not ed Anaerob 13:15 isolate e+Aerob d e Cult (qualif ier value) SCT NMDR NO MULTI DRUG RESISTA NT ORGANIS MS ISOLATE D L CK SerPl-cCnc (11-08-2016 12:21) CK 113 U/L 49-320 complet SerPl-c 017 ed Cnc 12:21 Magnesium SerPl-mCnc (11-08-2016 09:20) Magnesi 1.9 1.9-2.4 complet um 017 mg/dL ed SerPl-m 09:20 Cnc Phosphate SerPl-mCnc (11-08-2016 09:20) Phospha 4.6 2.5-4.5 complet te 017 mg/dL ed SerPl-m 09:20 Cnc Lactate Bld-sCnc (11-08-2016 07:33) Lactate 9.5 complet 017 mmol/L ed Bld-sCn 07:33 c Ca-I SerPl ISE-sCnc (11-08-2016 07:33) Ca-I 4.6 4.6-5.1 complet SerPl 017 mg/dL ed ISE-sCn 07:33 c Hct VFr Bld (11-08-2016 05:05) Hct VFr 33.5 % 40-51 complet Bld 017 ed 05:05 Ca-I Bld-mCnc (11-08-2016 05:05) Ca-I 4.5 4.6-5.1 complet Bld-mCn 017 mg/dL ed c 05:05 Potassium Bld-sCnc (11-08-2016 05:05) Potassi 7.0 3.7-4.8 complet um 017 mmol/L ed Bld-sCn 05:05 c Sodium BldA-sCnc (11-08-2016 05:05) Sodium 134 136-145 complet BldA-sC 017 mmol/L ed nc 05:05 Magnesium SerPl-mCnc (11-08-2016 05:05) Magnesi 2.0 1.9-2.4 complet um 017 mg/dL ed SerPl-m 05:05 Cnc Phosphate SerPl-mCnc (11-08-2016 05:05) Phospha 3.9 2.5-4.5 complet te 017 mg/dL ed SerPl-m 05:05 Cnc Bilirub SerPl-mCnc (11-08-2016 05:05) Bilirub 6.9 0.2-1.1 complet 017 mg/dL ed SerPl-m 05:05 Cnc Bacteria Ur Cult (11-08-2016 05:05) CC XXX NOTAP complet VC-aCnc 017 NOT ed 05:05 APPLICA BLE L Bacteri [id number] complet a XXX 017 06 No ed Anaerob 05:05 growth e+Aerob (qualif e Cult ier value) SCT NG1 NO GROWTH DAY 1. L Bacteria XXX Anaerobe+Aerobe Cult (11-08-2016 05:05) Bacteri [id number] complet a XXX 017 06 No ed Anaerob 05:05 growth e+Aerob (qualif e Cult ier value) SCT NGB6 NO GROWTH DAY 5. L Bacteria Bro [place] Aerobe Cult (11-08-2016 04:42) Bacteri [id number] complet a XXX 017 06 No ed Anaerob 04:42 growth e+Aerob (qualif e Cult ier value) SCT NG2 NO GROWTH DAY 2. L Hct VFr Bld (11-08-2016 02:53) Hct VFr 29.7 % 40-51 complet Bld 017 ed 02:53 Ca-I Bld-mCnc (11-08-2016 02:53) Ca-I 3.0 4.6-5.1 complet Bld-mCn 017 mg/dL ed c 02:53 Lactate Bld-sCnc (11-08-2016 02:53) Lactate 10.7 complet 017 mmol/L ed Bld-sCn 02:53 c Sodium BldA-sCnc (11-08-2016 02:53) Sodium 135 136-145 complet BldA-sC 017 mmol/L ed nc 02:53 Potassium Bld-sCnc (11-08-2016 02:53) Potassi 7.3 3.7-4.8 complet um 017 mmol/L ed Bld-sCn 02:53 c Lactate Bld-sCnc (11-08-2016 02:50) Lactate LER LAB complet 017 ERROR ed Bld-sCn 02:50 L c mmol/L Magnesium SerPl-mCnc (11-08-2016 01:51) Magnesi 1.3 1.9-2.4 complet um 017 mg/dL ed SerPl-m 01:51 Cnc Bacteria Fld Aerobe Cult (11-06-2016 15:10) CC XXX NOTAP complet VC-aCnc 017 NOT ed 15:10 APPLICA BLE L Bacteri [id number] complet a XXX 017 06 No ed Anaerob 15:10 growth e+Aerob (qualif e Cult ier value) SCT NG4 NO GROWTH DAY 4. L Procedures Procedure DOS Code Location Performer Comment BLOOD 475[address] [place] MATTHEW SMEAR 7 MEDICAL PERIPHERA SERV L INTERP FOUNDATIO PHYS N W/WRIT REPORT RADEX 84429 [place] BURGOS ABDOMEN 1 7 MEDICAL SERV ANTEROPOS FOUNDATIO TERIOR N VIEW INITIAL [address] [place] [address] CLARISSA ADRIAN CARE/DAY PHYSICIAN ELADIO 70 SERVI MINUTES ONDANSETR Q0162 [facility] ON 1 MG 7 [facility]ALTHCAR HEALTHCAR ORL NOT E E EXCEED 48 [facility] [place] [address] [facility] LIPASE 7 HEALTHCAR HEALTHCAR E E HOSPITALS [facility] BLOOD 01398 [facility] COUNT 7 HEALTHCAR HEALTHCAR COMPLETE E E AUTOMATED [facility] THERAPEUT 62690 [facility] IC 7 HEALTHCAR HEALTHCAR PROPHYLAC E E TIC/DX [facility] INJECTION SUBQ/IM COMPREHEN 22677 [facility] SIVE 7 HEALTHCAR HEALTHCAR METABOLIC E E PANEL [facility] URNLS DIP 59365 [facility] 7 HEALTHCAR HEALTHCAR STICK/TAB E E LET RGNT [facility] AUTO W/O MICROSCOP Y FOR DIAB A5513 [facility] ONLY MX 7 [facility] DNSITY PROSTH PROSTH INSRT INC INC CSTM MOLD CSTM EA DIAB ONLY A5500 [facility] FIT CSTM 7 [facility] PREP&SPL PROSTH PROSTH SHOE MX INC INC DNSITY INSRT OBSERVATI 24891 [facility] ON/INPATI 7 [facility] [place] [address] [place] [address] [facility] SHAY ABDOMEN & 7 RADIOLOGY III PELVIS W/O CONTRAST MATERIAL PROTHROMB 48963 [facility] MAC[facility] IN TIME 7 [facility] BLOOD 95954 [place] COUNT 7 [facility] AUTOMATED COMPREHEN 05387 DILEEP FALK SIVE [address] [place] [address] HOSPITAL PANEL GLUC BLD 26470 DILEEP SORTOON GLUC MNTR 7 [facility] [place] [address] MAC[place] MACARIOON AMMONIA [address] [place] [address] PROTHROMB 75275 DILEEP FALK IN TIME 7 [facility] OBSERVATI 60077 [facility] ON CARE 7 MEDICINE DISCHARGE SERVICES O MANAGEMEN T PROTHROMB 37240 DILEEP FALK IN TIME 7 [facility] THROMBOPL 87759 DILEEP FALK ASTIN 7 [facility] HOSPITAL PARTIAL PLASMA/WH OLE BLOOD BLOOD 82614 DILEEP FALK COUNT 7 [facility] AUTO&AUTO DIFRNTL WBC GLUC BLD 72701 DILEEP FALK GLUC MNTR 7 [facility] CLEARED FDA SPEC HOME USE COMPREHEN [address] [place] [address] DILEEP FALK AMMONIA [address] [place] [address] BLOOD 84731 DILEEP FALK COUNT [address] [place] [address] HOSPITAL AUTO&[place] [address] DILEEP FALK AMMONIA [address] [place] [address] PROTHROMB 93554 DILEEP FALK IN TIME 7 [facility] [place] [address] DILEEP FALK LIPASE [address] [place] [address] URNLS DIP 53258 DILEEP [address]ALK [address] [place] [address] STICK[facility] HOSPITAL HOSPITAL LET REAGENT AUTO MICROSCOP Y COMPREHEN [address] [facility] PANEL INITIAL 72317 [facility] 7 MEDICINE ON SERVICES CARE/DAY O 70 MINUTES BLD BANK 82501 [place] [facility] PH[facility] 7 MEDICAL DIFFC SERV CROSS FOUNDATIO MATCH&/EV N AL REP ESOPHAGOG 00942 [place] SUZAN LYNN 7 MEDICAL ENOSCOPY SERV TRANSORAL FOUNDATIO N DIAGNOSTI C ANES 09567 [place] UPPER GI 7 MEDICAL ENDOSCOPY SERVICES PROXIMAL TO DUODENUM INITIAL [address] CARE/DAY PHYSICIAN DECALAL 70 SERVI MINUTES BLD BANK 46564 [place] [facility] 7 MEDICAL DIFFC SERV CROSS FOUNDATIO MATCH&/EV N AL REP BLOOD 76791 DILEEP FALK COUNT 7 [facility] AUTOMATED COMPREHEN 05852 DILEEP FALK SIVE 7 [facility] PANEL RADIOLOGI 84142 [facility] [place] OLGA C EXAM 7 RADIOLOGY CHEST 2 VIEWS FRONTAL&L ATERAL DUP-SCAN 56134 [place] ROBERTH ARTL TIMOTHY 7 MEDICAL ABDL/PEL/ SERV SCROT&/RP FOUNDATIO R ORGN N COM RADIOLOGI 73229 [place] MERHAR C EXAM 7 MEDICAL CHEST 2 SERV VIEWS FOUNDATIO FRONTAL&L N ATERAL ECG 81836 [place] NIESHA ROUTINE 7 MEDICAL ECG SERV W/LEAST FOUNDATIO 12 LDS N I&R ONLY DUP-SCAN 86663 [facility] WEBBER ARTL TIMOTHY 7 MEDICAL ABDL/PEL/ SERV SCROT&/RP FOUNDATIO R ORGN N [facility] [address] [place] [facility] 7 MEDICAL DAY SERV MANAGEMEN FOUNDATIO T > 30 N MIN SBSQ 27086 [place] [facility] 7 MEDICAL CARE/DAY SERV 35 FOUNDATIO MINUTES N SWALLOWIN 47542 [place] DL CRUZJ 7 MEDICAL W/CINERAD SERV IOGRAPY/V FOUNDATIO IDRADIOG N SBSQ 72667 [facility] 7 MEDICAL CARE/DAY SERV 25 FOUNDATIO MINUTES N SBSQ 71296 [facility] 7 MEDICAL CARE/DAY SERV 25 FOUNDATIO MINUTES N RADIOLOGI 27281 [place] LAYLA C 7 MEDICAL AYA EXAMINATI SERV ON CHEST FOUNDATIO SINGLE N VIEW FRONTAL ECG 31479 [place] BENSON ROUTINE 7 MEDICAL ECG SERV W/LEAST FOUNDATIO 12 LDS N I&R ONLY RADIOLOGI 92703 [place] ZEKE C 7 MEDICAL EXAMINATI SERV ON CHEST FOUNDATIO SINGLE N VIEW FRONTAL RADIOLOGI 37531 [place] ZEKE C 7 MEDICAL EXAMINATI SERV ON CHEST FOUNDATIO SINGLE N VIEW FRONTAL ECG 75896 [place] DAMIAN ROUTINE 7 MEDICAL ECG SERV W/LEAST FOUNDATIO 12 LDS N I&R ONLY CRITICAL 53335 [place] ALONDRA CARE 7 MEDICAL ILL/INJUR SERV ED FOUNDATIO PATIENT N INIT 30-74 MIN CRITICAL 83181 [place] AL[facility] CARE 7 MEDICAL ILL/INJUR SERV ED FOUNDATIO PATIENT N INIT 30-74 MIN RADIOLOGI 45595 [place] TREVON C 7 MEDICAL EXAMINATI SERV ON CHEST FOUNDATIO SINGLE N VIEW FRONTAL RADIOLOGI 22581 [place] ONEAL C 7 MEDICAL EXAMINATI SERV ON CHEST FOUNDATIO SINGLE N VIEW FRONTAL RADEX 29741 [place] DL ABDOMEN 1 7 MEDICAL SERV ANTEROPOS FOUNDATIO TERIOR N VIEW CRITICAL 82442 [place] ALONDRA CARE 7 MEDICAL ILL/INJUR SERV ED FOUNDATIO PATIENT N INIT 30-74 MIN COLONOSCO 12535 [place] ESTHEREANK PY FLX DX 7 MEDICAL Y W/COLLJ SERV SPEC WHEN FOUNDATIO PFRMD N ESOPHAGOG 19548 [place] SHEDLOFSK ASTRODUOD 7 MEDICAL Y ENOSCOPY SERV TRANSORAL FOUNDATIO N DIAGNOSTI C SBSQ 37057 [facility] 7 NURSE CARE/DAY PRACTITIO 25 NER GR MINUTES CRITICAL 78766 [place] ALONDRA CARE 7 MEDICAL ILL/INJUR SERV ED FOUNDATIO PATIENT N INIT 30-74 MIN RADEX 96889 [place] DL ABDOMEN 1 7 MEDICAL SERV ANTEROPOS FOUNDATIO TERIOR N VIEW RADIOLOGI 09794 [place] TREVON C 7 MEDICAL EXAMINATI SERV ON CHEST FOUNDATIO SINGLE N VIEW FRONTAL DUP-SCAN 83272 [place] JESSICA ARTL TIMOTHY 7 MEDICAL ABDL/PEL/ SERV SCROT&/RP FOUNDATIO R ORGN N COM RADIOLOGI 50598 [place] INDU C 7 MEDICAL EXAMINATI SERV ON CHEST FOUNDATIO SINGLE N VIEW FRONTAL CRITICAL 67894 [place] ALONDRA CARE 7 MEDICAL ILL/INJUR SERV ED FOUNDATIO PATIENT N INIT 30-74 MIN CRITICAL 43129 [place] ALONDR[facility] CARE 7 MEDICAL ILL/INJUR SERV ED FOUNDATIO PATIENT N INIT 30-74 MIN RADIOLOGI 86523 [place] ONEAL C 7 MEDICAL EXAMINATI SERV ON CHEST FOUNDATIO SINGLE N VIEW FRONTAL SBSQ 87613 [facility] 7 NURSE CARE/DAY PRACTITIO 35 NER GR MINUTES ECG 02240 [place] BENSON ROUTINE 7 MEDICAL ECG SERV W/LEAST FOUNDATIO 12 LDS N I&R ONLY RADIOLOGI 74055 [place] RONAN C 7 MEDICAL EXAMINATI SERV ON CHEST FOUNDATIO SINGLE N VIEW FRONTAL RADIOLOGI 21053 [place] RONAN C 7 MEDICAL EXAMINATI SERV ON CHEST FOUNDATIO SINGLE N VIEW FRONTAL RADEX 20398 [place] JESSICA ABDOMEN 1 7 MEDICAL SERV ANTEROPOS FOUNDATIO TERIOR N VIEW RADIOLOGI 43876 [place] WYNNE C 7 MEDICAL MONA EXAMINATI SERV ON CHEST FOUNDATIO SINGLE N VIEW FRONTAL INITIAL 27502 [facility] INPATIENT 7 NURSE CONSULT PRACTITIO NEW/ESTAB NER GR PT 80 MIN ECG 53789 [place] BENSON ROUTINE 7 MEDICAL ECG SERV W/LEAST FOUNDATIO 12 LDS N I&R ONLY AMB A0427 [facility] SERVICE 7 AMBULANCE AMBULANCE ALS SERVICE SERVICE EMERGENCY TRANSPORT LEVEL 1 GROUND A0425 [facility] 7 AMBULANCE AMBULANCE PER SERVICE SERVICE STATUTE MILE SERVICES 46475 [facility] PROVIDED 7 PHYSICIAN U BTW 10 S, PLLC PM&8 AM AT 24-HR FACI BLD [facility] 16073 [place] [facility] 7 MEDICAL AUTHJ SERV DEVIJ FOUNDATIO STANDARD N REPRT AMB A0427 [facility] SERVICE 7 AMBULANCE AMBULANCE ALS SERVICE SERVICE EMERGENCY TRANSPORT LEVEL 1 GROUND A0425 [facility] 7 AMBULANCE AMBULANCE PER SERVICE SERVICE STATUTE MILE AMBULANCE A0429 [facility] SERVICE 7 AMBULANCE AMBULANCE BLS SERVICE SERVICE EMERGENCY TRANSPORT RADIOLOGI 17312 [facility] P[facility] C EXAM 7 MEDICAL CHEST 2 IMAGING VIEWS ASS FRONTAL&L ATERAL GROUND A0425 [facility] 7 AMBULANCE AMBULANCE PER SERVICE SERVICE STATUTE MILE CRITICAL 04997 [facility] 7 PHYSICIAN U ILL/INJUR S, PLLC ED PATIENT INIT 30-74 MIN SERVICES 48680 [facility] PROVIDED 7 PHYSICIAN U BTW 10 S, PLLC PM&8 AM AT 24-HR FACI GROUND A0425 [facility] MILEAGE 7 IRAJURBON DILEEP PER [facility] STATUTE EMS EMS MILE OBSERVATI 70831 [facility] ON CARE 7 MEDICINE A DISCHARGE SERVICES O MANAGEMEN T INITIAL 85945 [facility] OBSERVATI 7 MEDICINE A ON SERVICES CARE/DAY O 70 MINUTES RADIOLOGI 65697 [facility] [place] SCALF C EXAM 7 RADIOLOGY CHEST 2 VIEWS FRONTAL&L ATERAL RADIOLOGI 62220 [place] BE[place] C EXAM 7 MEDICAL CHEST 2 IMAGING VIEWS ASS FRONTAL&L ATERAL RADIOLOGI 77353 [place] C EXAM 7 MEDICAL CHEST 2 IMAGING VIEWS ASS FRONTAL&L ATERAL GROUND A0425 [facility] MILEAGE 7 AMBULANCE AMBULANCE PER SERVICE SERVICE STATUTE MILE AMB A0427 [facility] SERVICE 7 AMBULANCE AMBULANCE ALS SERVICE SERVICE EMERGENCY TRANSPORT LEVEL 1 RADEX 97202 [facility] [place] SCALF MARILIN RIBS 6 RADIOLOGY UNILATERA L 2 VIEWS COMPREHEN 98818 DILEEP FALK SIVE 6 [facility] PANEL PROTHROMB 73481 DILEEP FALK IN TIME 6 [facility] BLOOD 53314 DILEEP FALK COUNT 6 [facility] AUTOMATED COLLECTIO 53483 DILEEP FALK N VENOUS 6 [facility] VENIPUNCT URE RADEX 63529 [facility] [place] RIBS UNI 6 RADIOLOGY RHO W/POSTERO ANT CH MIN[place] [address] [place] [address] [facility] ABDOMEN & 6 RADIOLOGY RHO PELVIS W/O CONTRAST MATERIAL RADEX 94675 [facility] RIBS 6 CL[place] UNILATERA EMERGENCY L 2 VIEWS PHYS RADIOLOGI 26339 [facility] C 6 CLARISSA EXAMINATI EMERGENCY ON CHEST PHYS SINGLE VIEW FRONTAL RADIOLOGI 86143 [facility] [place]AYNE C 6 RADIOLOGY RHO EXAMINATI ON CHEST SING[place] FRONTAL ECG 98619 [facility] ARNOLD ROUTINE 6 CLARISSA LAST ECG EMERGENCY W/LEAST PHYS 12 LDS I&R ONLY ECG 24613 BENSON STUARTO ROUTINE 6 MEDICAL ECG SERV W/LEAST FOUNDATIO 12 LDS N I&R ONLY RADIOLOGI 85620 [place] BRENNAN C EXAM 6 MEDICAL MARY KATE CHEST 2 SERV VIEWS FOUNDATIO FRONTAL&L N ATERAL HEMOGLOBI 65373 S JIM N [address] RE[address] D[address] A1C NER GR POLYSOM 16678 LINDA GALLO GALLO LINDA 6/>YRS 6 MD SLEEP 4/> CONSULTIN ADDL G SRV SYBIL ATTND MRI 36334 [place] BUR[place] JENNIFER ABDOMEN 6 MEDICAL W/O & SERV W/CONTRAS FOUNDATIO T N MATERIAL POLYSOM 95885 [place] BOUR[place] 6/>YRS 6 [facility] SLEEP 4/> [facility] ADDL SYBIL ATTND COMPREHEN 69097 [place] MAC[place]IR[place] SIVE 6 [facility] PANEL COLLECTIO 18207 [place] N VENOUS 6 [facility] VENIPUNCT URE BLOOD 99589 [place] COUNT 6 [facility] AUTOMATED PROTHROMB 46608 [place] IN TIME 6 [facility] ECHO 47708 LINDA GALLO GALLO LINDA TTHRC R-T 6 2D CONSULTIN W/WOM-MOD G SRV E COMPL SPEC&COLR D COMPREHEN [address] SIVE 6 [facility] PANEL COLLECTIO 27773 MANUEL ARNDT JAMIE N VENOUS 6 FAMILY BLOOD PHYSICIAN VENIPUNCT S PLLC URE INITIAL 28000 [facility] DIAZ OBSERVATI 6 CLARISSA ISIDRA ON PHYSICIAN CARE/DAY SERVI 30 MINUTES RADIOLOGI 97973 [facility] BENSON SHAY C 6 RADIOLOGY III MARY KATE EXAMINATI ON CHEST SING[place] FRONTAL ECG 00112 [facility] SWINE[facility] ROUTINE 6 CLARISSA PAT ECG EMERGENCY W/LEAST PHYS 12 LDS I&R ONLY RADIOLOGI 44313 [facility] [place] SCALF MARILIN C EXAM 6 RADIOLOGY CHEST 2 VIEWS FRONTAL&L ATERAL RADIOLOGI 70272 [facility] SWINE[facility] C 6 CLARISSA PAT EXAMINATI EMERGENCY ON CHEST PHYS SING[place] FRONTAL GENERAL 45579 [facility] HEALTH 6 Y [place] [address] [facility] HAPTOGLOB 6 Y Y IN [facility] [place] [address] [facility] FERRITIN 6 Y Y [facility] IMMUNOASS 62103 [facility] AY 6 Y Y ANALYTE [facility] QUAL/SEMI QUAL MULTIPLE STEP BLOOD 45995 [facility] COUNT 6 Y Y RETICULOC [facility] YTES AUTO 1/> CELL ISACC HEPATITIS 09383 [facility] B SURF 6 Y [facility] HBSAB ANTINUCLE 79774 [facility] AR 6 Y Y ANTIBODIE [facility] S COLLINS COLLECTIO 19800 [facility] N VENOUS 6 Y Y BLOOD [facility] VENIPUNCT URE CERULOPLA 12890 [facility] SMIN 6 Y Y [facility] [place] [address] [facility] FOLIC 6 Y Y ACID RBC [facility] [place] [address] [facility] IRON 6 Y Y [facility] LACTATE 04197 [facility] DEHYDROGE 6 Y Y NASE LDH [facility] [place] [address] [facility] GAMMAGLOB 6 Y Y ULIN IGA [facility] IGD IGG IGM EACH HEPATITIS 83624 [facility] A 6 Y Y ANTIBODY [facility] HAAB COLD 91531 [facility] AGGLUTINI 6 Y Y N TITER [facility] [place] [address] [facility] FREE 6 Y Y THYROXINE [facility] [place] [address] [facility] [place] SCAL[place] MARILIN ABDOMEN & 5 RADIOLOGY PELVIS W/CONTRAS T MATERIAL ESOPHAGOG 22812 DAYNA TURNER ASTRODUOD 5 [facility] ENOSCOPY PHYSICIAN TRANSORAL PRA DIAGNOSTI C ANES 82420 [place] UPPER GI 5 ANESTHESI ENDOSCOPY A GROUP PROXIMAL PS TO DUODENUM ONDANSETR Q0162 [facility] F[facility] ON 1 MG 5 [facility] EXCEED 48 HR DOSE REG RADIOLOGI 61694 [facility] [address] [place] [address] [facility] [place] [address] [facility] LIPASE [address] [place] [address] HOSPITAL URNLS DIP [address] [facility] LET REAGENT AUTO MICROSCOP Y IAADIADOO [address] [place] [address] [facility] AMYLASE [address] [place] [address] HOSPITAL COMPREHEN [address] HOSPITAL PANEL GLUC BLD 83097 [facility] GLUC MNTR [address] [place] [address] CLEARED FDA SPEC HOME USE BLOOD 94646 [place] [address] [facility] AUTO&AUTO DIFRNTL WBC HI OSM Q9963 [facility] CONTRST [address] [place] [address] HOSPITAL [phone] MG/ML IODINE CONC ML RADEX 26079 [facility] SPINE [address] [place] [address] HOSPITAL AL 2/[address] [place] [address] [facility] ABDOMEN & [address] [place] [address] PELVIS [facility] W/O CONTRAST MATERIAL COLLECTIO 75938 [facility] N VENOUS [address] [place] [address] HOSPITAL VENIPUNCT URE COLLECTIO 00482 [facility] N VENOUS [address] [place] [address] HOSPITAL VENIPUNCT URE BLOOD 50485 [facility] [place] [address] [facility] AUTO&AUTO DIFRNTL WBC COMPREHEN 28372 [facility] [address] [place] [address] HOSPITAL PANEL URNLS DIP [address] [facility] HOSPITAL LET [place] [address] [facility] [place] LIPASE [address] [place] [address] HOSPITAL INJECTION [id number] [address] [facility]AC [facility] TROMETHAM INE PER 15 MG INJECTION J2405 [facility] 5 Y Y SYMMES HOSPITAL ON HCL PER 1 [place] [address] [facility] LIPASE 5 [place] [address] [facility] ABDOMINAL 5 Y Y REAL [facility] HOSPITAL TIME W/IMAGE DOCUMENTA TION COMPREHEN 68406 [facility] SIVE 5 Y Y [facility] HOSPITAL PANEL BLOOD 71139 [facility] COUNT 5 Y Y [facility] AUTO&[place] [address] [facility] LACTATE 5 Y Y [facility] THER 36388 [facility] PROPH/DX 5 Y Y NJX [facility] HOSPITAL PUSH SINGLE/1S T SBST/[place] [address] [facility] ABDOMINAL [address] [place] [address] HOSPITAL TIME W/[place] [address] [facility] [place] ABDOMINAL 5 RADIOLOGY RHO REAL TIME W/IMAGE LIMITED INJECTION [id number] JEANNINE UP TO 4 MG INJECTION J2405 [address] ON HCL PER 1 MG HOSPITAL 12311 [facility] MICHAEL DISCHARGE 5 CL[place]ISSA EDGAR IGN DAY PHYSICIAN MANAGEMEN SERVI T 30 MIN/< SBSQ 18437 [facility] 5 CL[place]IS[place] HUG CARE/DAY PHYSICIAN 25 SERVI MINUTES SBSQ 83881 [facility] 5 CL[place]IS[place] HUG CARE/DAY PHYSICIAN 35 SERVI MINUTES INITIAL 25394 [facility] 5 CL[place]IS[place] A GOP CARE/DAY PHYSICIAN [address] [place] [address] [facility] [place] [facility] ABDOMEN & 5 RADIOLOGY RAY PELVIS W/O CONTRAST MATERIAL CYANOCOBA [address] NAHOMI 5 GROUP GROUP [facility] B-12 COMPREHEN 58769 [address] SIVE 5 GROUP GROUP METABOLIC [facility] PANEL COLLECTIO 09338 MANUEL GREEN JAMIE N VENOUS 5 FAMILY BLOOD PHYSICIAN VENIPUNCT S PLLC URE HEMOGLOBI 20011 [address] N 5 GROUP GROUP GLYCOSYLA [facility] DANE A1C BLOOD 74990 PATH PATH COUNT 5 GROUP GROUP COMPLETE [facility] AUTO&AUTO DIFRNTL WBC GLUC BLD 95064 DILEEP SORTOON GLUC MNTR [address] [place] [address] CLEARED FDA SPEC HOME USE COLLECTIO 85526 DILEEP FALK N VENOUS [address] [place] [address] VENIPUNCT URE COMPREHEN 81468 [facility] SIVE [address] [place] [address] [place] [address] DILEEP GALOANTWANJOCELYNN LIPASE [address] [place] [address] HOSPITAL COMPREHEN 54353 [facility] DILEEP [address] HOSPITAL PANEL BLOOD 25930 DILEEP GIPSON PET COUNT [address] [place] [address] AUTOMATED GLUC BLD 15419 DILEEP FALK GLUC MNTR [address] [place] [address] CLEARED FDA SPEC HOME USE INITIAL 40313 [facility] 5 CLARISSA HERNÁNDEZ IGN ON PHYSICIAN CARE/DAY SERVI 70 MINUTES PRESSURIZ 33759 MAACRIOJOCELYNN MACARIOJOCELYNN ED/NONPRE [address] [place] [address] HOSPITAL INHALATIO N TREATMENT NONINVASI 97310 [facility] FALK VE [address] [place] [address]/[facility] OXIMETRY SINGLE DETER RADIOLOGI 80532 [facility] [place] C EXAM 5 RADIOLOGY RHO CHEST 2 VIEWS FRONTAL&L ATERAL GLUC BLD 05036 DILEEP SORTOON GLUC MNTR [address] [place] [address] CLEARED FDA SPEC HOME USE NATRIURET 29140 IRAJFABBY MACARIOJOCELYNN IC [address] [place] [address] [place] [address] DILEEP MACARIOON AMYLASE [address] [place] [address] BLOOD [facility] HOSPITAL AEROBIC W/ID ISOLATES [id number] [facility] CC[facility] [id number] ON HOSPITAL HOSPITAL SERVICE PER HOUR IAADIADOO [id number] [facility] [address] [facility] LIPASE [address] [place] [address] URNLS DIP [address] [facility] HOSPITAL LET REAGENT AUTO MICROSCOP Y GENERAL [address] HEMOGLOBI [address] [place] ANTONIO MORAN N 4 NURSE PETER VELA A1C NER GR IM ADM 65172 [facility] PRQ ID 4 [facility] DISTRICT SUBQ/IM HLTH DEPT HLTH DEPT NJXS 1 RESHMA RESHMA VACCINE IM ADM 47347 [facility] PRQ ID 4 [facility] DISTRICT SUBQ/IM HLTH DEPT HLTH DEPT NJXS EA RESHMA RESHMA VACCINE HEPB 27041 [facility] VACCINE [facility] ADULT 3 HLTH DEPT HLTH DEPT DOSE RESHMA RESHMA SCHEDULE FOR IM USE HEPA 11738 [facility] VACCINE 4 [facility] ADULT HLTH DEPT HLTH DEPT DOSE FOR RESHMA RESHMA INTRAMUSC ULAR USE RADEX 39466 [facility] [place] ABDOMEN 4 RADIOLOGY RHO COMPL W/DCBTS&/ [place] [address] [facility] [place] ABDOMINAL 4 RADIOLOGY RHO REAL TIME W/IMAGE DOCUMENTA TION DXA BONE 12676 [facility] [place] [facility] DENSITY 4 RADIOLOGY RHO STUDY 1/> SITES AXIAL SKEL COMPRE 60682 DILEEP FREEMAN SET AUDIOMETR 4 PHYSICIAN Y PRACTICE THRESHOLD L EVAL SP RECOGNIJ TYMPANOME 65528 MACARIOON FREEMAN SET TRY 4 PHYSICIAN PRACTICE L HEPATITIS 03257 UNIVERSIT UNIVERSIT A 4 Y Y [facility] 48727 [facility] SURF 4 Y Y [facility] HBSAB PROTHROMB 75214 [facility] IN TIME 4 Y Y HOSPITAL HOSPITAL Encounters Encounter Start End Date Code Location Performer Type Date EMERGENCY [address] [facility] DE[facility] 7 7 [place] VISIT EMERGENCY HIGH PHYS SEVERITY& THREAT FUNJ EMERGENCY 91301 [facility] 7 7 [place]ISSA DEPARTMEN EMERGENCY T VISIT PHYS HIGH/URGE NT SEVERITY EMERGENCY 86012 [place] [facility] 7 7 MEDICAL VISIT SERV HIGH FOUNDATIO SEVERITY& N THREAT FUN EMERGENCY 20924 7 7 [facility]ALTH[facility] DEPARTMEN E T VISIT HOSPITALS HIGH/URGE NT SEVERITY [facility] - 7 7 [facility] OUTPATIEN E T HOSPITALS EMERGENCY 00877 [facility] 7 7 [place] VISIT EMERGENCY HIGH PHYS SEVERITY& THREAT [facility] - 7 7 [facility] EMERGENCY 62619 [facility] HIGH SEVERITY& THREAT [facility] T EMERGENCY 35398 [facility] DE[facility] 7 7 MEDICAL VISIT SERV HIGH FOUNDATIO SEVERITY& N THREAT [facility] OFF[facility] 70568 [facility] 7 7 FAMILY T VISIT PHYSICIAN 15 S PLLC MINUTES EMERGENCY 60100 [facility] 7 7 CLARISSA DEPARTMEN EMERGENCY T VISIT PHYS HIGH/URGE NT SEVERITY HOSPITAL - 7 7 [facility] INPATIENT E HOSPITALS EMERGENCY 48453 [place] [facility] 7 7 MEDICAL VISIT SERV HIGH FOUNDATIO SEVERITY& N THREAT [facility] 7 7 [facility] EMERGENCY 40313 [facility] 7 7 CLARISSA DEPARTMEN EMERGENCY T VISIT PHYS HIGH/URGE NT SEVERITY EMERGENCY 20415 [facility] DE[facility] 7 7 [place]IS[place] VISIT EMERGENCY HIGH PHYS SEVERITY& THREAT FUNCJ EMERGENCY 19740 [facility] 7 PHYSICIAN U VISIT S, PLLC HIGH SEVERITY& THREAT FUNCJ OFFICE 40721 [facility] EXTRUSION DIE COORDINATOR CONSULTAT 7 7 MEDICAL ION SERV NEW/ESTAB FOUNDATIO PATIENT N 80 MIN EMERGENCY 46943 [facility] 7 7 MEDICAL DEPARTMEN SERV T VISIT FOUNDATIO MODERATE N SEVERITY EMERGENCY 67818 [facility] DEPT 7 7 [place] VISIT EMERGENCY HIGH PHYS SEVERITY& THREAT FUNCJ EMERGENCY 18462 [facility] 6 6 CLARISSA DEPARTMEN EMERGENCY T VISIT PHYS HIGH/URGE NT SEVERITY EMERGENCY 59220 [facility] 6 6 CLARISSA PAT DEPARTMEN EMERGENCY T VISIT PHYS HIGH/URGE NT SEVERITY HOSPITAL [place] [address] 6 [facility] T OFFICE 59540 [facility] 6 6 FAMILY T VISIT PHYSICIAN 15 S PLLC MINUTES EMERGENCY 75015 [facility] MATIAS DEPT 6 6 [place] VISIT EMERGENCY HIGH PHYS SEVERITY& THREAT FUNCJ EMERGENCY 27849 [facility] ARNOLD DEPT 6 6 CLARISSA LAST VISIT EMERGENCY HIGH PHYS SEVERITY& THREAT FUNCJ EMERGENCY [address] 6 6 MEDICAL DEPARTMEN SERV T VISIT FOUNDATIO LOW/MODER N SEVERITY OFFICE 05668 [facility] 6 6 NURSE REGINALD T VISIT PRACTITIO 25 NER GR MINUTES EMERGENCY 12611 [facility] 6 6 CLARISSA PAT DEPARTMEN EMERGENCY T VISIT PHYS HIGH/URGE NT SEVERITY [facility] [place] - 6 6 [facility] 6 [facility] OFFICE 61247 [facility] 6 6 FOOT & T NEW 30 ANKLE CE MINUTES OFFICE 89226 MANUEL AYALA [facility] 6 6 FAMILY T VISIT PHYSICIAN 15 S PLLC MINUTES EMERGENCY 81777 [facility] DIAMOND INA 6 6 MEDICAL DEPARTMEN SERV T VISIT FOUNDATIO MODERATE N SEVERITY EMERGENCY 98576 [facility] DE[facility] 6 6 CLARISSA KATHY VISIT EMERGENCY HIGH PHYS SEVERITY& THREAT FUNCJ OFFICE [address] [facility] 6 6 FAMILY T VISIT PHYSICIAN 25 S PLLC MINUTES EMERGENCY 06551 [facility] DEPT 6 6 CLARISSA PAT VISIT EMERGENCY HIGH PHYS SEVERITY& THREAT FUNCJ EMERGENCY 58719 [facility] DEPT 6 6 CL[place]IS[place] KATHY VISIT EMERGENCY HIGH PHYS SEVERITY& THREAT FUNCJ OFFICE 88497 [facility] 6 6 Y OF RTHY JERRY T VISIT [place] 15 HOSPI MINUTES OFFICE [address] [facility] 6 6 FAMILY T VISIT PHYSICIAN 15 S PLLC MINUTES EMERGENCY 81994 [facility] 6 6 CLARISSA PAT DEPARTMEN EMERGENCY T VISIT PHYS HIGH/URGE NT SEVERITY [facility] 44400 MANUEL AYALA OUTPATIEN 5 5 FAMILY T VISIT PHYSICIAN 15 S PLLC MINUTES OFFICE 70826 MANUEL AYALA OUTPATIEN 5 5 FAMILY T VISIT PHYSICIAN 25 S PLLC MINUTES OFFICE 11337 MANUEL AYALA OUTPATIEN 5 5 FAMILY T VISIT PHYSICIAN 15 S PLLC MINUTES EMERGENCY 38193 [place] 5 5 [facility] HOSPITAL T VISIT HIGH/URGE NT SEVERITY EMERGENCY 67731 [facility] DEPT 5 5 CLARISSA COLLINS VISIT EMERGENCY HIGH PHYS SEVERITY& THREAT [facility] [place] - 5 5 [facility] [place] - 5 5 [facility] T EMERGENCY 77194 [facility] CELLAR[facility] 5 5 CLARISSA - [facility] EMERGENCY PAT T VISIT PHYS HIGH/URGE NT SEVERITY HOSPITAL [facility] - 5 5 [facility] T EMERGENCY 71256 [facility] 5 5 [facility] SERV T VISIT FOUNDATIO MODERATE N SEVERITY EMERGENCY 57804 UNIVERSIT 5 5 [facility] T VISIT HIGH/URGE NT SEVERITY [facility] 5 [facility] T OFFICE 60407 [facility] 5 5 FAMILY T VISIT PHYSICIAN 25 S PLLC MINUTES EMERGENCY 97544 [facility] 5 5 [facility] T VISIT PHYS HIGH/URGE NT SEVERITY [facility] [place] - 5 5 [facility] T EMERGENCY 88141 [place] 5 5 [facility] T VISIT MODERATE SEVERITY OFFICE 15027 [facility] 5 5 FAMILY T VISIT PHYSICIAN 15 S PLLC MINUTES EMERGENCY 78548 [facility] DEPT 5 5 CLARISSA COLLINS VISIT EMERGENCY HIGH PHYS SEVERITY& THREAT [facility] [place] - 5 5 [facility] OFFICE 12253 [facility] 5 5 FAMILY T VISIT PHYSICIAN 15 S PLLC MINUTES EMERGENCY 93574 [place] 5 5 [facility] H[facility]PITAL T VISIT MODERATE SEVERITY EMERGENCY 39381 [facility] 5 5 CLARISSA PAT DEPARTMEN EMERGENCY T VISIT PHYS HIGH/URGE NT SEVERITY [facility] 5 5 [facility] T OFFICE 98188 MANUEL AYALA OUTPATIEN 5 5 FAMILY T VISIT PHYSICIAN 15 S PLLC MINUTES [facility] - 5 5 [facility] T EMERGENCY 50413 [facility] 5 5 CLARISSA THO VISIT EMERGENCY HIGH PHYS SEVERITY& THREAT FUNCJ OFFICE 92360 [facility] ANTONIO MORAN OUTPATIEN 4 4 NURSE T NEW 45 PRACTITIO MINUTES NER GR OFFICE 76457 MANUEL AYALA OUTPATIEN 4 4 FAMILY T VISIT PHYSICIAN 15 S PLLC MINUTES OFFICE 38689 MANUEL YRIS AYALA OUTPATIEN 4 4 FAMILY T VISIT PHYSICIAN 25 S PLLC MINUTES EMERGENCY 30702 [facility] MATIAS DEPT 4 4 CLARISSA MUH VISIT EMERGENCY HIGH PHYSI SEVERITY& THREAT [facility] 4 [facility] T OFFICE 74300 DILEEP CLARK OUTPATIEN 4 4 PHYSICIAN LES T VISIT PRACTICE 15 L MINUTES OFFICE [address] [facility] 4 4 MEDICAL BELLA T VISIT SERV 25 FOUNDATIO MINUTES HOSPITAL UNIVERSIT - 4 4 [facility] T OFFICE 98339 DILEEP CLARK CONSULTAT 4 4 PHYSICIAN LES ION PRACTICE NEW/ESTAB L PATIENT 40 MIN OFFICE 13074 MANUEL YRIS AYALA OUTPATIEN 4 4 FAMILY T VISIT PHYSICIAN 15 S PLLC MINUTES
--- OUTSIDE RECORDS SUMMARY | 2017-06-14 12:48 | External Medical Summary Rpt ---
Author Author , UNIQUE CALHOUN Address Unknown Phone [email or web address] Care Team Providers Care [employer] Name Role Phone SIMONE CHICHI, SIMONE CHICHI Unavailable Unavailable ARNOLD, ARNOLD Unavailable Unavailable ARNOLD LAST, ARNOLD Unavailable Unavailable LAST EDUARDO LES, EDUARDO Unavailable Unavailable LES LAYTON, LAYTON Unavailable Unavailable AVALLONE, AVALLONE Unavailable Unavailable BEINEKE, BEINEKE Unavailable Unavailable PULIDO, PULIDO Unavailable Unavailable [facility] Unavailable Unavailable HOSPITAL, [facility] PHYSICIAN Unavailable Unavailable PRACTICE L, [facility] ILSA, [facility] Unavailable Unavailable [facility] Unavailable Unavailable SERVICE, [facility] MICHAEL EDGAR, MICHAEL Unavailable [...] PRA [facility], Unavailable Unavailable [facility] JOSE ANTONIO LUISA, JOSE ANTONIO LUISA [...] Unavailable SERVICES O, [facility] O WEATHER OBSERVER, WEATHER OBSERVER Unavailable Unavailable SHAY III, SHAY Unavailable Unavailable [...] Unavailable [facility], Unavailable [...] BURGOS, BURGOS Unavailable Unavailable BURGOS JENNIFER, BURGOS EJNNIFER Unavailable Unavailable RONAN, RONAN Unavailable Unavailable LINDA GALLO MD Unavailable Unavailable CONSULTING SRV, LINDA GALLO MD CONSULTING SRV [facility] Unavailable Unavailable EMS, [facility] Unavailable Unavailable EMS, [facility] Unavailable Unavailable PH[facility]ANS [facility], [facility], Unavailable Unavailable PLLC, [facility], [facility], Unavailable Unavailable [facility] [employer] [facility], Unavailable Unavailable [facility] RICCI DUNN, Unavailable Unavailable RICCI DUNN [...] SOKAN BAB Unavailable Unavailable SOTINGEANU, Unavailable [facility]available [facility] Unavailable Unavailable EMERGENCY PHYS, [facility] Unavailable Unavailable PHYSICIAN SERVI, [facility] WEBBER, WEBBER Unavailable Unavailable WEBBER RAY, WEBBER Unavailable Unavailable RAY SWINEY PAT, SWINEY Unavailable Unavailable PAT FLORENCIO TER, FLORENCIO TER Unavailable Unavailable [facility] Unavailable Unavailable HOSPITALS, [facility], Unavailable Unavailable [facility] Unavailable [facility]available [place] [facility] BRENNAN MARY KATE, BRENNAN Unavailable Unavailable MARY KATE JIM REGINALD, JIM Unavailable Unavailable REGINALD ALANIS, ALANIS Unavailable Unavailable [facility] Unavailable Unavailable DEPT RES[facility], [facility] Unavailable Unavailable DEPT RES[facility], [facility] NICOLAS NICOLAS Unavailable Unavailable INDU, INDU Unavailable Unavailable ZAGUROVSKAYA, Unavailable Unavailable ZAGUROVSKAYA OLGA, OLGA Unavailable Unavailable Purpose Continuity of Care Document - 06-16-2014 through 2016 Problems Code Diagnosis DOS Provider Status K76.6 PORTAL 05-15-2017 HYPERTENSIO N R10.31 RIGHT LOWER 05-15-2017 QUADRANT PAIN R50.9 FEVER, 05-15-2017 UNSPECIFIED Z79.4 FCI 05-15-2017 (CURRENT) USE OF INSULIN E80.4 GILBERT 05-15-2017 SYNDROME K70.30 ALCOHOLIC 05-15-2017 CIRRHOSIS OF LIVER WITHOUT ASCITES Z79.899 OTHER LONG 05-15-2017 TERM (CURRENT) DRUG THERAPY E11.9 TYPE 2 05-15-2017 DIABETES MELLITUS WITHOUT COMPLICATIO NS I10 ESSENTIAL 05-15-2017 (PRIMARY) HYPERTENSIO N Z79.84 FCI 05-15-2017 (CURRENT) USE OF ORAL HYPOGLYCEMI C [...] FAILURE WITHOUT COMA R51 HEADACHE 02-14-2017 [facility] Z794 SECONDS HANDLER 02-14-2017 [facility] CURRENT USE [facility] INSULIN [facility] Z7984 FCI 02-14-2017 [facility] USE OF ORAL [facility] HYPOGLYCEMI C DRUGS Z9119 PATIENTS 02-14-2017 [facility] NONCOMPLIAN [facility] CE W/OTH HOSPITAL MED TX & REGIMEN I11.9 HYPERTENSIV 01-31-2017 E HEART DISEASE WITHOUT HEART FAILURE K92.0 HEMATEMESIS 01-31-2017 D649 ANEMIA 01-31-2017 [facility] UNSPECIFIED SERV [facility] K922 GASTROINTES 01-30-2017 [facility] TINAL SERV HEMORRHAGE [facility]OUND[facility] UNSPECIFIED E1165 TYPE 2 01-29-2017 [facility] DIABETES [facility] MELL[facility]US PH[facility]IANS WITH [facility] [place] K98843 PAIN IN 01-29-2017 [facility] RIGHT FOOT FAMILY PHYSICIANS [facility] L83527 PAIN IN 01-29-2017 [facility] LEFT FOOT [facility] PH[facility] M79.671 PAIN IN 01-28-2017 RIGHT FOOT M79.672 PAIN IN 01-28-2017 LEFT FOOT R60.0 LOCALIZED 01-28-2017 [facility] R600 LOCALIZED 01-26-2017 [facility] EDEMA N EMERGENCY PHYS R739 HYPERGLYCEM 01-26-2017 [facility] IA N EMERGENCY UNSPECIFIED PHYS D62 ACUTE 01-15-2017 [facility] POSTHEMORRH SERVICES AGIC ANEMIA K209 ESOPHAGITIS 01-15-2017 [facility] UNSPECIFIED K921 MELENA 01-15-2017 [facility] D509 IRON 01-12-2017 [facility] DEFICIENCY N PHYSICIAN ANEMIA SERVI UNSPECIFIED I160 HYPERTENSIV 01-12-2017 [facility] E URGENCY N PHYSICIAN SERVI K219 GASTRO-ESOP 01-12-2017 [facility] H REFLUX N PHYSICIAN DISEASE SERVI WITHOUT ESOPHAGITIS N179 ACUTE 01-12-2017 [facility] UNSPECIFIED Z7682 AWAITING 01-12-2017 [facility] STATUS Z79.2 FCI 12-31-2016 (CURRENT) USE OF ANTIBIOTICS E28632 EFFUSION 12-27-2016 [facility] RIGHT ANKLE N EMERGENCY PHYS W57879 EFFUSION 12-27-2016 [facility] LEFT ANKLE N EMERGENCY [...] R490 DYSPHONIA 11-21-2016 [facility] M18531O OTH FORGEN 11-20-2016 [place] [facility] OBJ RESP [...] I2119 ST 11-16-2016 [facility] E[facility] SERV MA INVOLV [facility] OTH CORONARY ART INF WALL R000 TACHYCARDIA 11-16-2016 [facility] UNSPECIFIED [facility] K2210 ULCER OF 11-14-2016 [place] [facility] ESOPHAGUS SERV WITHOUT [facility] BLEEDING E1169 TYPE 2 11-13-2016 [facility] NURSE DIABETES PRACTITIONE MELLITUS R GR W/OTH SPEC COMPLICATIO N E8770 FLUID 11-13-2016 [place] [facility] OVERLOAD SERV UNSPECIFIED FOUNDATION J9602 ACUTE 11-13-2016 [facility] RESPIRATORY SERV FAILURE [facility]OUND[facility] WITH HYPERCAPNIA J9811 ATELECTASIS 11-13-2016 [facility] I2926ZN OTHER 11-13-2016 [facility] POSTPROCEDU SERV RAL SHOCK [facility] SUBSEQUENT ENCOUNTER R0989 OTH SPEC SX 11-12-2016 [facility] & SIGNS SERV INVLV THE FOUNDATION CIRC & RESP SYS E806 OTHER 11-11-2016 [facility] DISORDERS SERV OF FOUNDATION BILIRUBIN METABOLISM E872 ACIDOSIS 11-11-2016 [facility] E876 HYPOKALEMIA 11-11-2016 [facility] I4891 UNSPECIFIED 11-11-2016 [facility] ATRIAL SERV FIBRILLATIO FOUNDATION N I959 HYPOTENSION 11-11-2016 S NURSE PRACTITIONCorrie UNSPECIFIED R GR J849 INTERSTITIA 11-11-2016 [facility] L PULMONARY SERV DISEASE FOUNDATION UNSPECIFIED J984 OTHER 11-11-2016 [facility] DISORDERS SERV OF LUNG FOUNDATION Z452 ENCOUNTER 11-09-2016 [facility] ADJUSTMENT& SERV MGMT FOUNDATION VASCULAR ACCESS DEVICE E875 HYPERKALEMI 11-08-2016 [facility] NURSE Javy CARLOS R GR I459 CONDUCTION 11-08-2016 [facility] DISORDER SERV UNSPECIFIED FOUNDATION K920 HEMATEMESIS 11-08-2016 [facility] K8020 CALCULUS GB 11-07-2016 [facility] W/O SERV CHOLECYSTIT FOUNDATION IS W/O OBSTRUCTION R188 OTHER 11-07-2016 [facility] ASCITES SERV [facility] Z8719 PERSONAL 11-07-2016 [facility] HISTORY SERV OTHER FOUNDATION DISEASES DIGESTIVE SYSTEM R0602 SHORTNESS 11-06-2016 [facility] R531 WEAKNESS 11-06-2016 [facility] M542 CERVICALGIA 10-21-2016 [facility] M6281 MUSCLE 10-21-2016 [facility] WEAKNESS [facility] EMS R1030 LOWER 10-21-2016 [facility] ABDOMINAL SERV PAIN FOUNDATION UNSPECIFIED R05 COUGH 10-09-2016 [facility] J189 PNEUMONIA 09-22-2016 [place] UNSPECIFIED MEDICAL ORGANISM IMAGING ASS Z09 ENC F/U 09-22-2016 [place] EXAM AFTR MEDICAL CMPL TX OTH IMAGING ASS THAN MALIG NEOPLSM R509 FEVER 09-19-2016 [place] UNSPECIFIED MEDICAL IMAGING ASS H1133 CONJUNCTIVA 07-28-2016 [facility] L N EMERGENCY HEMORRHAGE PHYS BILATERAL R030 ELEVATED 07-28-2016 [facility] BLOOD-PRESS N EMERGENCY URE READING PHYS WITHOUT DX HTN R0789 OTHER CHEST 07-28-2016 [facility] PAIN N EMERGENCY PHYS N490OIT OTHER 07-28-2016 [facility] [place] SPECIFIED RADIOLOGY INJURIES THORAX INITIAL ENC H1032 UNSPECIFIED 07-24-2016 [facility] ACUTE FAMILY CONJUNCTIVI PHYSICIANS TIS LEFT PLL EYE H1132 CONJUNCTIVA 07-22-2016 [facility] L N EMERGENCY HEMORRHAGE PHYS LEFT EYE L821MPI CONTUSION 07-22-2016 [facility] OF N EMERGENCY ABDOMINAL PHYS WALL INITIAL ENCOUNTER E8342 HYPOMAGNESE 07-01-2016 [facility] [place] N EMERGENCY PHYS G0430 ACUTE 07-01-2016 [facility] NECROTIZING N EMERGENCY PHYS HEMORRHAGIC ENCEPHALOPA THY UNS R1110 VOMITING 06-28-2016 [facility] UNSPECIFIED SERV [facility] G4710 HYPERSOMNIA 06-11-2016 LINDA GALLO MD UNSPECIFIED CONSULTING SRV D490 NEOPLASM OF 06-07-2016 [facility] UNS SERV BEHAVIOR FOUNDATION DIGESTIVE SYSTEM K766 PORTAL 06-07-2016 [facility] HYPERTENSIO SERV N FOUNDATION R161 SPLENOMEGAL 06-07-2016 [facility] Y NOT SERV ELSEWHERE FOUNDATION CLASSIFIED G479 SLEEP 06-03-2016 [place] DISORDER [facility] UNSPECIFIED HOSPITAL R0683 SNORING 06-03-2016 [facility] R5383 OTHER 06-03-2016 [facility] A95954 PAIN IN 05-20-2016 [place] UNSPECIFIED FOOT & LIMB ANKLE CE R072 PRECORDIAL 05-16-2016 LINDA JOSHI MD CONSULTING SRV G4733 OBSTRUCTIVE 05-02-2016 [facility] SLEEP [facility]ILY [facility] F71017R TOX EFF OTH 04-08-2016 [facility] GASES N EMERGENCY FUMES & PHYS VAPORS ACC INITIAL ENC M545 LOW BACK 03-04-2016 [facility] PAIN [facility] R112 NAUSEA WITH 03-04-2016 [facility] UNSPECIFIED R1033 PERIUMBILIC 02-28-2016 [facility] AL PAIN N EMERGENCY PHYS R5381 OTHER 01-29-2016 [facility] MALAISE N EMERGENCY PHYS R17 UNSPECIFIED 01-26-2016 [facility] HOSPI L0390 CELLULITIS 01-08-2016 [facility] UNSPECIFIED [facility] M546 PAIN IN 11-10-2015 [facility] THORACIC N EMERGENCY SPINE PHYS D88279 MUSCLE 11-10-2015 [facility] SPASM OF N EMERGENCY BACK PHYS K6389 OTHER 09-05-2015 [facility] [place] SPECIFIED RADIOLOGY DISEASES OF INTESTINE B370 CANDIDAL 08-15-2015 [facility] STOMATITIS [facility] K222 ESOPHAGEAL 07-26-2015 [facility] OBSTRUCTION REGIONAL PHYSICIAN PRA K319 DISEASE OF 07-26-2015 [place] STOMACH AND ANESTHESIA DUODENUM GROUP PS UNSPECIFIED K449 DIAPHRAGMAT 07-26-2015 [place] IC HERNIA ANESTHESIA W/O GROUP PS OBSTRUCTION OR GANGRENE 4660 ACUTE 06-07-2015 [facility] BRONCHITIS FAMILY PHYSICIANS [facility] 40403 ABDOMINAL 06-07-2015 [facility] PAIN, FAMILY GENERALIZED PHYSICIANS [facility] 7242 LUMBAGO 06-01-2015 [facility] 7862 COUGH 06-01-2015 [facility] 03300 ABDOMINAL 06-01-2015 [facility] [place] PAIN RIGHT RADIOLOGY LOWER QUADRANT 03466 DIAB W/O 05-31-2015 [facility] COMP TYPE N EMERGENCY II/UNS NOT PHYS STATED [facility] 4019 UNSPECIFIED 05-31-2015 [facility] ESSENTIAL [facility] HYPERTENSIO [facility] N 4549 ASYMPTOMATI 05-31-2015 [facility] C VARICOSE [facility] 5715 CIRRHOSIS 05-31-2015 [facility] WITHOUT HOSPITAL MENTION OF ALCOHOL 73155 OSTEOARTHRO 05-31-2015 [facility] S UNSPEC [facility] GEN/LOC UNSPEC SITE 7213 LUMBOSACRAL 05-31-2015 [facility] N EMERGENCY SPONDYLOSIS PHYS WITHOUT MYELOPATHY 15389 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 [facility] 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 71992 OTHER 05-31-2015 [facility] ASCITES [facility] V5867 LONG-TERM 05-31-2015 [facility] USE OF [facility] V5869 LONG-TERM 05-31-2015 [facility] USE OF HOSPITAL OTHER MEDICATIONS 20206 NAUSEA WITH 05-26-2015 [facility] VOMITING [facility] 31845 ABDOMINAL 05-26-2015 [facility] PAIN RIGHT N EMERGENCY UPPER PHYS QUADRANT 50658 ABDOMINAL 05-26-2015 [facility] PAIN, LEFT N EMERGENCY LOWER PHYS QUADRANT 20598 ABDOMINAL 05-26-2015 [facility] PAIN, N EMERGENCY EPIGASTRIC PHYS V145 PERSONAL 05-26-2015 [facility] HISTORY OF COMMUNITY ALLERGY TO HOSPITAL NARCOTIC AGENT 11765 ABDOMINAL 05-04-2015 [facility] UNSPECIFIED SITE 5718 OTHER 04-12-2015 [facility]RONIC [facility] C LIVER DISEASE 34986 UNSPEC 04-12-2015 [facility] INJURY LIVR N EMERGENCY W/O PHYS MENTION OPN WOUND IN CAV 04713 DIAB W/O 03-27-2015 [facility] MENTION FAMILY COMP TYPE PHYSICIANS II/UNS TYPE PLLC UN[facility]L 21166 DIVERTICULI 03-27-2015 [facility] TIS OF FAMILY COLON PHYSICIANS PLLC 5589 OTH&UNSPEC 03-20-2015 [facility] NONINFECTIO N PHYSICIAN US SERVI GASTROENTER ITIS&COLITI S 5723 PORTAL 03-16-2015 [facility] [place] HYPERTENSIO RADIOLOGY N 16103 ABDOMINAL 03-16-2015 [facility] PERIUMBILIC PHYS V146 PERSONAL 03-16-2015 [place] HISTORY OF COMMUNITY ALLERGY TO HOSPITAL ANALGESIC AGENT 5289 OTHER&UNSPE 02-14-2015 [facility] CIFIED N EMERGENCY DISEASES PHYS THE ORAL SOFT TISSUES 5290 GLOSSITIS 02-14-2015 [facility] N EMERGENCY PHYS 2382 NEOPLASM OF 01-24-2015 [facility]ERT[facility]ILY [facility] OF PHYSICIANS SKIN PLLC 4871 INFLUENZA 10-31-2014 [facility] WITH OTHER N PHYSICIAN RESPIRATORY SERVI MANIFESTATI ONS 25890 FEVER 10-31-2014 [facility] UNSPECIFIED N PHYSICIAN SERVI 486 PNEUMONIA, 10-30-2014 [facility] ORGANISM N EMERGENCY UNSPECIFIED PHYS 81103 OBESITY, 08-24-2014 [facility] NURSE UNSPECIFIED PRACTITIONE R GR V069 NEED PROPH 07-28-2014 [facility] VACCINATION DISTRICT W/UNSPEC [facility] DEPT COMB RESHMA VACCINE 46978 DISORDER OF 07-05-2014 [facility] [place] BONE AND RADIOLOGY CARTILAGE UNSPECIFIED 7948 NONSPECIFIC 07-05-2014 [facility] [place] ABNORMAL RADIOLOGY RESULTS LIVR FUNCTION STUDY 82027 DYSFUNCTION 06-29-2014 [place] OF PHYSICIAN EUSTACHIAN PRACTICE L TUBE 02148 SUBJECTIVE 06-29-2014 [place] TINNITUS PHYSICIAN PRACTICE L 76762 SENSORINEUR 06-29-2014 [place] [facility] HEARING PHYSICIAN LOSS [...] PH AR JUANY CY #3 01 6 TN 65 08 [...] ve G 79 20 20 04 [place] MA 75 17 17 96 X 9 17 [...] 80 2- 1- 00 01 UC ve MA 21 20 20 03 [place] DE 61 [...] 20 5- 4- 00 01 UC ve MA 76 20 20 02 [place] N 01 [...] 80 9- 8- 00 01 UC ve [place] 21 20 20 03 [place] DE 61 [...] 20 9- 1- 00 01 UC ve [place] 76 20 20 02 [place] N 01 [...] 20 3- 3- 00 01 UC ve MA 76 20 20 02 [place] N 01 [...] ve G 79 20 20 97 [place] MA 75 17 17 10 X 9 96 CV 75 S -2 PH 5 AR KW MA IK CY PE N LL C, DB A CV S PH AR MA CY #3 01 6 FU 00 05 06 30 30 00 KE Ac RO 37 -2 -2 .0 00 NT ti SE 80 4- 3- 00 01 UC ve MA 21 20 20 03 [place] DE 61 [...] PH AR MA CY #3 01 6 MA 57 05 06 30 30 00 KE [...] PH AR MA CY #3 01 6 MA 57 04 05 30 30 00 KE [...] 20 3- 2- 00 00 UC ve MA 76 20 20 99 [place] N 01 [...] ve G 79 20 20 97 [place] MA 75 17 17 10 X 9 96 [...] PH AR JUANY CY #3 01 6 MA 57 03 04 30 30 00 KE [...] 20 7- 7- 00 00 UC ve MA 76 20 20 99 [place] N 01 [...] 44 7- 7- 00 26 UC ve MA 29 20 20 25 [place] DE 93 [...] 80 1- 0- 00 00 UC ve MA 20 20 20 97 [place] DE 81 [...] 00 [place] RA 30 17 17 11 MA 5 65 CV DE S PH 10 AR MA MG CY TA LL BL C, ET DB A CV S PH AR MA CY #3 01 6 MA 57 02 02 30 30 00 KE [...] 80 1- 0- 00 00 UC ve MA 20 20 20 97 [place] DE 81 17 17 66 0 62 CV 20 S PH MG AR MA TA CY BL ET LL C, DB A CV S PH AR JUANY CY #3 01 6 ME 68 01 02 60 30 00 KE Ac TF 38 -1 -1 .0 00 NT ti OR 20 0- 0- 00 00 UC ve MA 76 20 20 99 [place] N 01 [...] ve G 79 20 20 97 [place] MA 75 16 17 10 X 9 96 [...] Comment ion Range Glucose 456 mg/dL 74-99 [facility] 11-08-2016 02:53 Name Value Interpretat Reference Comment ion Range Glucose 419 mg/dL 74-99 [facility] Results Labs Lab Lab Date Result Refere Interp Status Commen Order Detail nces retati t Range on Hgb A1c MFr Bld (05-08-2017 05:53) Hgb A1c 6.7 % 4.7-6.0 complet MFr 017 ed Bld 05:53 Path Rev Bld -Imp (05-08-2017 02:25) Path [id number] complet Rev Bld 017 04 ed -Imp 02:25 refer to patholo gy laborat ory SCT COPATH COPATH report to follow L Bacteria Ur Cult (05-08-2017 01:09) CC XXX NOTAP complet VC-aCnc 017 NOT ed 01:09 APPLICA BLE L Bacteri [id number] complet a XXX 017 06 No ed [...] Bacteria XXX Anaerobe+Aerobe Cult (05-07-2017 23:23) Bacteri [id number] complet a XXX 017 06 No ed [...] NOT ed 03:50 APPLICA BLE L Bacteri [id number] complet a XXX 017 00 not ed [...] NOT ed 23:56 APPLICA BLE L Bacteri [id number] complet a XXX 017 1 ed Anaerob 23:56 Staphyl e+Aerob ococcus e Cult epiderm idis (organi sm) SCT SEPI STAPHYL OCOCCUS EPIDERM IDIS L Magnesium SerPl-mCnc (11-20-2016 03:42) Magnesi 1.5 1.9-2.4 complet um 017 mg/dL ed SerPl-m 03:42 Cnc Phosphate SerPl-mCnc (11-20-2016 03:42) Phospha 2.8 2.5-4.5 complet te 017 mg/dL ed SerPl-m 03:42 Cnc MDRO Wnd (11-18-2016 10:50) Bacteri [id number] complet a XXX 017 06 No ed [...] NOT ed 17:16 APPLICA BLE L Bacteri [id number] complet a XXX 017 00 not ed [...] NOT ed 13:15 APPLICA BLE L Bacteri [id number] complet a XXX 017 00 not ed [...] NOT ed 05:05 APPLICA BLE L Bacteri [id number] complet a XXX 017 06 No ed Anaerob 05:05 growth e+Aerob (qualif e Cult ier value) SCT NG1 NO GROWTH DAY 1. L Bacteria XXX Anaerobe+Aerobe Cult (11-08-2016 05:05) Bacteri [id number] complet a XXX 017 06 No ed Anaerob 05:05 growth e+Aerob (qualif e Cult ier value) SCT NGB6 NO GROWTH DAY 5. L Bacteria Bro Ellsworth Aerobe Cult (11-08-2016 04:42) Bacteri [id number] complet a XXX 017 06 No ed [...] NOT ed 15:10 APPLICA BLE L Bacteri [id number] complet a XXX 017 06 No ed Anaerob 15:10 growth e+Aerob (qualif e Cult ier value) SCT NG4 NO GROWTH DAY 4. L Procedures Procedure DOS Code Location Performer Comment BLOOD 87945 [place] MATTHEW SMEAR 7 MEDICAL PERIPHERA SERV L INTERP FOUNDATIO PHYS N W/WRIT REPORT RADEX 36871 [place] ABDOMEN 1 7 MEDICAL SERV ANTEROPOS FOUNDATIO TERIOR N VIEW INITIAL [address] [place] [address] CLARISSA ADRIAN CARE/DAY PHYSICIAN ELADIO 70 SERVI MINUTES ONDANSETR Q0162 [facility] ON 1 MG 7 HEALTHCAR HEALTHCAR ORL NOT E E EXCEED 48 [facility] [place] [address] [facility] LIPASE 7 [facility]ALTHCAR HEALTHCAR E E HOSPITALS [facility] BLOOD 92434 [facility] COUNT 7 HEALTHCAR HEALTHCAR COMPLETE E E AUTOMATED [facility] THERAPEUT 62858 [facility] IC 7 HEALTHCAR HEALTHCAR PROPHYLAC E E TIC/DX [facility] INJECTION SUBQ/IM COMPREHEN 76904 [facility] SIVE 7 [facility] METABOLIC E E PANEL [facility] URNLS DIP 39312 [facility] 7 [facility] STICK/TAB E E LET RGNT [facility] AUTO W/O MICROSCOP Y FOR DIAB A5513 [facility] ONLY MX 7 [facility]ACE [facility]ACE DNSITY PROSTH PROSTH INSRT INC INC CSTM MOLD CSTM EA DIAB ONLY A5500 [facility] FIT CSTM 7 [facility] PREP&SPL PROSTH PROSTH SHOE MX INC INC DNSITY INSRT OBSERVATI 72403 [facility] ON/INPATI 7 [facility] O [place] [address] [place] [address] [facility] [place] SHAY ABDOMEN & 7 RADIOLOGY III PELVIS W/O CONTRAST MATERIAL PROTHROMB 29554 [facility] MAC[facility]IOON IN TIME 7 [facility] BLOOD 98681 [facility] MACARIOON COUNT 7 [facility] AUTOMATED COMPREHEN 60888 DILEEP FALK SIVE [address] [place] [address] HOSPITAL PANEL GLUC BLD 31300 DILEEP SORTOON GLUC MNTR 7 [facility] [place] [address] MACARIOON MACARIOON AMMONIA [address] [place] [address] PROTHROMB 65627 DILEEP FALK IN TIME 7 [facility] OBSERVATI 42862 [facility] ON CARE 7 MEDICINE DISCHARGE SERVICES O MANAGEMEN T PROTHROMB 99894 DILEEP FALK IN TIME 7 [facility] THROMBOPL 80730 DILEEP FALK ASTIN 7 [facility] PARTIAL PLASMA/WH OLE BLOOD BLOOD 79731 DILEEP FALK COUNT 7 [facility] HOSPITAL AUTO&AUTO DIFRNTL WBC GLUC BLD 51045 DILEEP FALK GLUC MNTR 7 [facility] CLEARED FDA SPEC HOME USE COMPREHEN 74[address] [place] [address] DILEEP FALK AMMONIA [address] [place] [address] BLOOD 29179 DILEEP FALK COUNT [address] [place] [address] HOSPITAL AUTO&[place] [address] DILEEP FALK AMMONIA [address] [place] [address] PROTHROMB 30699 DILEEP FALK IN TIME 7 [facility] [place] [place] [address] DILEEP FALK LIPASE [address] [place] [address] URNLS DIP 88772 DILEEP [address]ALK [address] [place] [address] STICK/TAB HOSPITAL HOSPITAL LET REAGENT AUTO MICROSCOP Y COMPREHEN 46009 DILEEP [address]ALK [address] HOSPITAL PANEL INITIAL 80[address] [facility] 7 MEDICINE ON SERVICES CARE/DAY O 70 MINUTES BLD BANK 797[address] [place] PHYS SVCS 7 MEDICAL DIFFC SERV CROSS FOUNDATIO MATCH&/EV N AL REP ESOPHAGOG 10276 [place] SUZAN LYNN 7 MEDICAL ENOSCOPY SERV TRANSORAL FOUNDATIO N DIAGNOSTI C ANES 25846 [place] [facility] 7 MEDICAL ENDOSCOPY SERVICES PROXIMAL TO DUODENUM INITIAL [id number] CARE/DAY PHYSICIAN DECALAL 70 SERVI MINUTES BLD BANK 48689 [place] [facility] 7 MEDICAL DIFFC SERV CROSS FOUNDATIO MATCH&/EV N AL REP BLOOD 25592 DILEEP FALK COUNT 7 [facility] COMPREHEN 41873 DILEEP FALK SIVE 7 [facility] PANEL RADIOLOGI 71011 [facility] [place] C EXAM 7 RADIOLOGY CHEST 2 VIEWS FRONTAL&L ATERAL DUP-SCAN 31144 [place] [facility] ART[facility] 7 MEDICAL ABDL/PEL/ SERV SCROT&/RP FOUNDATIO R ORGN N COM RADIOLOGI 24954 [place] MERHAR C EXAM 7 MEDICAL CHEST 2 SERV VIEWS FOUNDATIO FRONTAL&L N ATERAL ECG 10621 [place] [facility] ROUTINE 7 MEDICAL ECG SERV W/LEAST FOUNDATIO 12 LDS N I&R ONLY DUP-SCAN 85694 [facility] 7 MEDICAL ABDL/PEL/ SERV SCROT&/RP FOUNDATIO R ORGN N [facility] [address]143 [place] [facility] 7 MEDICAL DAY SERV MANAGEMEN FOUNDATIO T > 30 N MIN SBSQ 75161 [place] [facility] 7 MEDICAL CARE/DAY SERV 35 FOUNDATIO MINUTES N SWALLOWIN 51946 [place] CRUZJ 7 MEDICAL W/CINERAD SERV IOGRAPY/V FOUNDATIO IDRADIOG N SBSQ 51590 [facility] 7 MEDICAL CARE/DAY SERV 25 FOUNDATIO MINUTES N SBSQ 99373 [facility] 7 MEDICAL CARE/DAY SERV 25 FOUNDATIO MINUTES N RADIOLOGI 22359 [place] [facility]AY[facility] C 7 MEDICAL AYA EXAMINATI SERV ON CHEST FOUNDATIO SINGLE N VIEW FRONTAL ECG 83449 [place] [facility] ROUTINE 7 MEDICAL ECG SERV W/LEAST FOUNDATIO 12 LDS N I&R ONLY RADIOLOGI 14952 [place] ZEKE C 7 MEDICAL EXAMINATI SERV ON CHEST FOUNDATIO SINGLE N VIEW FRONTAL RADIOLOGI 27407 [place] [facility] C 7 MEDICAL EXAMINATI SERV ON CHEST FOUNDATIO SINGLE N VIEW FRONTAL ECG 90565 [place] [facility] ROUTINE 7 MEDICAL ECG SERV W/LEAST FOUNDATIO 12 LDS N I&R ONLY CRITICAL 98830 [place] [facility] 7 MEDICAL ILL/INJUR SERV ED FOUNDATIO PATIENT N INIT 30-74 MIN CRITICAL 05468 [place] [facility] 7 MEDICAL ILL/INJUR SERV ED FOUNDATIO PATIENT N INIT 30-74 MIN RADIOLOGI 63184 [place] TREVON C 7 MEDICAL EXAMINATI SERV ON CHEST FOUNDATIO SINGLE N VIEW FRONTAL RADIOLOGI 27866 [place] ONEAL C 7 MEDICAL EXAMINATI SERV ON CHEST FOUNDATIO SINGLE N VIEW FRONTAL RADEX 85766 [place] DL ABDOMEN 1 7 MEDICAL SERV ANTEROPOS FOUNDATIO TERIOR N VIEW CRITICAL 68727 [place] [facility] 7 MEDICAL ILL/INJUR SERV ED FOUNDATIO PATIENT N INIT 30-74 MIN COLONOSCO 04223 [place] ESTHEREANK PY FLX DX 7 MEDICAL Y W/COLLJ SERV SPEC WHEN FOUNDATIO PFRMD N ESOPHAGOG 07118 [place] SHEDLOFS[facility] ASTRODUOD 7 MEDICAL Y ENOSCOPY SERV TRANSORAL FOUNDATIO N DIAGNOSTI C SBSQ 33118 [facility] 7 NURSE CARE/DAY PRACTITIO 25 NER GR MINUTES CRITICAL 63118 [place] [facility] 7 MEDICAL ILL/INJUR SERV ED FOUNDATIO PATIENT N INIT 30-74 MIN RADEX 19040 [place] DL ABDOMEN 1 7 MEDICAL SERV ANTEROPOS FOUNDATIO TERIOR N VIEW RADIOLOGI 09995 [place] TREVON C 7 MEDICAL EXAMINATI SERV ON CHEST FOUNDATIO SINGLE N VIEW FRONTAL DUP-SCAN 94252 [place] JESSICA ARTL TIMOTHY 7 MEDICAL ABDL/PEL/ SERV SCROT&/RP FOUNDATIO R ORGN N COM RADIOLOGI 25284 [place] INDU C 7 MEDICAL EXAMINATI SERV ON CHEST FOUNDATIO SINGLE N VIEW FRONTAL CRITICAL 90673 [place] ALONDRA CARE 7 MEDICAL ILL/INJUR SERV ED FOUNDATIO PATIENT N INIT 30-74 MIN CRITICAL 29517 [place] [facility] CARE 7 MEDICAL ILL/INJUR SERV ED FOUNDATIO PATIENT N INIT 30-74 MIN RADIOLOGI 72874 [place] ONEAL C 7 MEDICAL EXAMINATI SERV ON CHEST FOUNDATIO SINGLE N VIEW FRONTAL SBSQ 82632 [facility] 7 NURSE CARE/DAY PRACTITIO 35 NER GR MINUTES ECG 37107 [place] BENSON ROUTINE 7 MEDICAL ECG SERV W/LEAST FOUNDATIO 12 LDS N I&R ONLY RADIOLOGI 60988 [place] RONAN C 7 MEDICAL EXAMINATI SERV ON CHEST FOUNDATIO SINGLE N VIEW FRONTAL RADIOLOGI 54964 [place] RONAN C 7 MEDICAL EXAMINATI SERV ON CHEST FOUNDATIO SINGLE N VIEW FRONTAL RADEX 64032 [place] JESSICA ABDOMEN 1 7 MEDICAL SERV ANTEROPOS FOUNDATIO TERIOR N VIEW RADIOLOGI 86706 [place] WYNNE C 7 MEDICAL MONA EXAMINATI SERV ON CHEST FOUNDATIO SINGLE N VIEW FRONTAL INITIAL 73347 [facility] INPATIENT 7 NURSE CONSULT PRACTITIO NEW/ESTAB NER GR PT 80 MIN ECG 53325 [place] BENSON ROUTINE 7 MEDICAL ECG SERV W/LEAST FOUNDATIO 12 LDS N I&R ONLY AMB A0427 [facility] SERVICE 7 AMBULANCE AMBULANCE ALS SERVICE SERVICE EMERGENCY TRANSPORT LEVEL 1 GROUND A0425 [facility] P[facility] MILEAGE 7 AMBULANCE AMBULANCE PER SERVICE SERVICE STATUTE MILE SERVICES 43923 [facility] PROVIDED 7 PHYSICIAN U BTW 10 S, PLLC PM&8 AM AT 24-HR FACI BLD [facility] 12872 [place] NICOLAS PHYS SVCS 7 MEDICAL AUTHJ SERV DEVIJ FOUNDATIO STANDARD N REPRT AMB A0427 [facility] SERVICE 7 AMBULANCE AMBULANCE ALS SERVICE SERVICE EMERGENCY TRANSPORT LEVEL 1 GROUND A0425 [facility] PERR[facility] MILEAGE 7 AMBULANCE AMBULANCE PER SERVICE SERVICE STATUTE MILE AMBULANCE A0429 [facility] SERVICE 7 AMBULANCE AMBULANCE BLS SERVICE SERVICE EMERGENCY TRANSPORT RADIOLOGI 07236 YUNIOR PULIDO C EXAM 7 MEDICAL CHEST 2 IMAGING VIEWS ASS FRONTAL&L ATERAL GROUND A0425 [facility] PERRY MILEAGE 7 AMBULANCE AMBULANCE PER SERVICE SERVICE STATUTE MILE CRITICAL 19299 [facility] 7 PHYSICIAN U ILL/INJUR S, PLLC ED PATIENT INIT 30-74 MIN SERVICES 97614 AC QUINTERO PROVIDED 7 PHYSICIAN U BTW 10 S, PLLC PM&8 AM AT 24-HR FACI GROUND A0425 [facility] MILEAGE 7 IRAJURBON DILEEP PER [facility] STATUTE EMS EMS MILE OBSERVATI 76445 [facility] ON CARE 7 MEDICINE A DISCHARGE SERVICES O MANAGEMEN T INITIAL 52711 [facility] OBSERVATI 7 MEDICINE A ON SERVICES CARE/DAY O 70 MINUTES RADIOLOGI 21841 CNTR [place] SCALF C EXAM 7 RADIOLOGY CHEST 2 VIEWS FRONTAL&L ATERAL RADIOLOGI 06004 [place] BEINEKE C EXAM 7 MEDICAL CHEST 2 IMAGING VIEWS ASS FRONTAL&L ATERAL RADIOLOGI 36504 [place] PULIDO C EXAM 7 MEDICAL CHEST 2 IMAGING VIEWS ASS FRONTAL&L ATERAL GROUND A0425 [facility] MILEAGE 7 AMBULANCE AMBULANCE PER SERVICE SERVICE STATUTE MILE AMB A0427 [facility] SERVICE 7 AMBULANCE AMBULANCE ALS SERVICE SERVICE EMERGENCY TRANSPORT LEVEL 1 RADEX 70370 [facility] [place] SCALF MARILIN RIBS 6 RADIOLOGY UNILATERA L 2 VIEWS COMPREHEN 40341 DILEEP FALK SIVE 6 [facility] PANEL PROTHROMB 06381 DILEEP FALK IN TIME 6 [facility] BLOOD 37383 DILEEP FALK COUNT 6 [facility] AUTOMATED COLLECTIO 46066 DILEEP FALK N VENOUS 6 [facility] VENIPUNCT URE RADEX 54887 [facility] [place] RIBS UNI 6 RADIOLOGY RHO W/POSTERO ANT [place] MINIM[address] [place] [address] [facility] [place] ABDOMEN & 6 RADIOLOGY RHO PELVIS W/O CONTRAST MATERIAL RADEX 52440 [facility] RIBS 6 [place] UNILATERA EMERGENCY L 2 VIEWS PHYS RADIOLOGI 97336 [facility] MATIAS C 6 CL[place]ISSA EXAMINATI EMERGENCY ON CHEST PHYS SINGLE VIEW FRONTAL RADIOLOGI 80802 [facility] [place] LAYNE C 6 RADIOLOGY RHO EXAMINATI ON CHEST SINGLE VIEW FRONTAL ECG 14306 [facility] ARNOLD ROUTINE 6 CLARISSA LAST ECG EMERGENCY W/LEAST PHYS 12 LDS I&R ONLY ECG 23769 B[facility] STUARTO ROUTINE 6 MEDICAL ECG SERV W/LEAST FOUNDATIO 12 LDS N I&R ONLY RADIOLOGI 13697 MS BRENNAN C EXAM 6 MEDICAL MARY KATE CHEST 2 SERV VIEWS FOUNDATIO FRONTAL&L N ATERAL HEMOGLOBI 07263 S JIM N [address] PRACTITIO D[address] A1C NER GR POLYSOM 86491 LINDA GALLO GALLO LINDA 6/>YRS 6 MD SLEEP 4/> CONSULTIN ADDL G SRV SYBIL ATTND MRI 92850 [place] BURG[place] JENNIFER ABDOMEN 6 MEDICAL W/O & SERV W/CONTRAS FOUNDATIO T N MATERIAL POLYSOM 56681 [facility] [facility] 6/>YRS 6 [facility] SLEEP 4/> HOSPITAL HOSPITAL ADDL SYBIL ATTND COMPREHEN 05298 [place] MACARIOON SIVE 6 [facility] PANEL COLLECTIO 55591 [place] [facility] N VENOUS 6 [facility] VENIPUNCT URE BLOOD 25447 [place] COUNT 6 [facility] AUTOMATED PROTHROMB 90550 [place] IN TIME 6 [facility] ECHO 36164 LINDA GALLO GALLO LINDA TTHRC R-T 6 2D CONSULTIN W/WOM-MOD G SRV E COMPL SPEC&COLR D COMPREHEN [address] SIVE 6 [facility] PANEL COLLECTIO 59315 MANUEL ARNDT JAMIE N VENOUS 6 FAMILY BLOOD PHYSICIAN VENIPUNCT S PLLC URE INITIAL 61226 [facility] DIAZ OBSERVATI 6 CLARISSA ISIDRA ON PHYSICIAN CARE/DAY SERVI 30 MINUTES RADIOLOGI 39264 CN[facility] BENSON SHAY C 6 RADIOLOGY III MARY KATE EXAMINATI ON CHEST SINGLE VIEW FRONTAL ECG 57075 [facility] SWINEY ROUTINE 6 CLARISSA PAT ECG EMERGENCY W/LEAST PHYS 12 LDS I&R ONLY RADIOLOGI 08811 [facility] [place] SCALF MARILIN C EXAM 6 RADIOLOGY CHEST 2 VIEWS FRONTAL&L ATERAL RADIOLOGI 35091 [facility] SWINEY C 6 CLARISSA PAT EXAMINATI EMERGENCY ON CHEST PHYS SINGLE VIEW FRONTAL GENERAL 21450 [facility] HEALTH 6 Y [place] [address] [facility] HAPTOGLOB 6 Y Y IN HOSPITAL [facility] [place] [address] [facility] FERRITIN 6 Y Y HOSPITAL [facility] IMMUNOASS 87286 [facility] AY 6 Y Y ANALYTE [facility] QUAL/SEMI QUAL MULTIPLE STEP BLOOD 93922 [facility] COUNT 6 Y Y RETICULOC [facility] YTES AUTO 1/> CELL ISACC HEPATITIS 19345 [facility] B SURF 6 [facility] HBSAB ANTINUCLE 10479 [facility] AR 6 Y Y ANTIBODIE [facility] S COLLINS COLLECTIO 55044 [facility] N VENOUS 6 Y Y BLOOD [facility] VENIPUNCT URE CERULOPLA 79007 [facility] SMIN 6 Y Y [facility] [place] [place] [address] [facility] FOLIC 6 Y Y ACID RBC [facility] [place] [address] [facility] IRON 6 Y Y HOSPITAL [facility] LACTATE 39131 [facility] DEHYDROGE 6 Y Y NASE LDH [facility] [place] [place] [address] [facility] GAMMAGLOB 6 Y Y ULIN IGA [facility] IGD IGG IGM EACH HEPATITIS 24903 [facility] A 6 Y Y ANTIBODY [facility] HAAB COLD 38439 [facility] AGGLUTINI 6 Y Y N TITER [facility] [place] [place] [address] [facility] FREE 6 Y Y THYROXINE [facility] [place] [address] [facility] SCALF MARILIN ABDOMEN & 5 RADIOLOGY PELVIS W/CONTRAS T MATERIAL ESOPHAGOG 05123 DAYNA TURNER ASTRODUOD 5 [facility] ENOSCOPY PHYSICIAN TRANSORAL PRA DIAGNOSTI C ANES 97189 [place] DEPA RAY UPPER GI 5 ANESTHESI ENDOSCOPY A GROUP PROXIMAL PS TO DUODENUM ONDANSETR Q0162 [facility] FALK ON 1 MG 5 [facility] EXCEED 48 HR DOSE REG RADIOLOGI 68380 [facility] C [address] [place] [address] [facility] HOSPITAL [place] [address] [facility] LIPASE [address] [place] [address] HOSPITAL URNLS DIP [address] [facility] HOSPITAL LET REAGENT AUTO MICROSCOP Y IAADIADOO [address] [place] [address] [facility] AMYLASE [address] [place] [address] HOSPITAL COMPREHEN [address] HOSPITAL PANEL GLUC BLD 19934 [facility] GLUC MNTR [address] [place] [address] CLEARED FDA SPEC HOME USE BLOOD [address] HOSPITAL AUTO&AUTO DIFRNTL WBC HI OSM Q9963 [facility] CONTRST [address] [place] [address] HOSPITAL [phone] MG/ML IODINE CONC ML RADEX 04458 [facility] SPINE [address] [place] [address] HOSPITAL AL 2/[address] [place] [address] [facility] ABDOMEN & [address] [place] [address] PELVIS [facility] HOSPITAL W/O CONTRAST MATERIAL COLLECTIO 76753 [facility] N VENOUS [address] [place] [address] HOSPITAL VENIPUNCT URE COLLECTIO 14212 [facility] N VENOUS [address] [place] [address] HOSPITAL VENIPUNCT URE BLOOD [address] HOSPITAL AUTO&AUTO DIFRNTL WBC COMPREHEN 04038 [facility] [address] [place] [address] HOSPITAL PANEL URNLS DIP [address] [facility] HOSP[facility] [place] [address] [facility] LIPASE [address] [place] [address] HOSPITAL INJECTION [id number] [address] KETOROLAC [facility] HOSPITAL TROMETHAM INE PER 15 MG INJECTION J2405 [facility] 5 Y Y [facility] ON HCL PER 1 [place] [address] [facility] LIPASE [place] [address] [facility] ABDOMINAL 5 Y Y REAL [facility] HOSPITAL TIME W/IMAGE DOCUMENTA TION COMPREHEN 99652 [facility] SIVE 5 Y Y [facility]OSP[facility] PANEL BLOOD 39032 [facility] COUNT 5 Y Y [facility] AUTO&[place] [address] [facility] LACTATE 5 Y Y [facility] HOSPITAL THER 41604 [facility] PROPH/DX 5 Y Y NJX [facility] PUSH SINGLE/1S T SBST/[place] [address] [facility] ABDOMINAL [address] [place] [address] HOSPITAL TIME W/[place] [address] [facility] [place] ABDOMINAL 5 RADIOLOGY RHO REAL TIME W/IMAGE LIMITED INJECTION [id number] JEANNINE UP TO 4 MG INJECTION J2405 [address] ON HCL PER 1 MG HOSPITAL [address] [facility] MICHAEL DISCHARGE 5 CLARISSA EDGAR IGN DAY PHYSICIAN MANAGEMEN SERVI T 30 MIN/< SBSQ 70555 [facility] 5 CLARISSA HUG CARE/DAY PHYSICIAN 25 SERVI MINUTES SBSQ 80661 [facility] 5 CLARISSA HUG CARE/DAY PHYSICIAN 35 SERVI MINUTES INITIAL 01457 [facility] 5 CLARISSA A GOP CARE/DAY PHYSIC[place] [address] [place] [address] [facility] [place] WEBBER ABDOMEN & 5 RADIOLOGY RAY PELVIS W/O CONTRAST MATERIAL CYANOCOBA [address] NAHOMI 5 GROUP GROUP VITAMIN [facility] B-12 COMPREHEN [address] SIVE 5 [facility] PANEL COLLECTIO 80913 MANUEL GREEN JAMIE N VENOUS 5 FAMILY BLOOD PHYSICIAN VENIPUNCT S PLLC URE HEMOGLOBI [address] N 5 GROUP GROUP GLYCOSYLA [facility] DANE A1C BLOOD 88677 [address] COUNT 5 GROUP GROUP COMPLETE [facility] AUTO&AUTO DIFRNTL WBC GLUC BLD 92906 DILEEP SORTOON GLUC MNTR [address] [place] [address] CLEARED FDA SPEC HOME USE COLLECTIO 78598 DILEEP FALK N VENOUS [address] [place] [address] VENIPUNCT URE COMPREHEN 51404 [facility] SIVE [address] [place] [address] [place] [address] DILEEP GALOANTWANJOCELYNN LIPASE [address] [place] [address] HOSPITAL COMPREHEN 64821 [facility] DILEEP [address] HOSPITAL PANEL BLOOD 20981 DILEEP GIPSON PET COUNT [address] [place] [address] AUTOMATED GLUC BLD 15890 DILEEP FALK GLUC MNTR [address] [place] [address] CLEARED FDA SPEC HOME USE INITIAL 12955 [facility] 5 CLARISSA HERNÁNDEZ IGN ON PHYSICIAN CARE/DAY SERVI 70 MINUTES PRESSURIZ 56322 MACARIOJOCELYNN MACARIOJOCELYNN ED/NONPRE [address] [place] [address] HOSPITAL INHALATIO N TREATMENT NONINVASI 92741 [facility] FALK VE [address] [place] [address]/[facility] OXIMETRY SINGLE DETER RADIOLOGI 58602 [facility] [place] C EXAM 5 RADIOLOGY RHO CHEST 2 VIEWS FRONTAL&L ATERAL GLUC BLD 04995 DILEEP SORTOON GLUC MNTR [address] [place] [address] CLEARED FDA SPEC HOME USE NATRIURET 85564 IRAJFABBY MACARIOJOCELYNN IC [address] [place] [address] [place] [address] DILEEP MACARIOON AMYLASE [address] [place] [address] BLOOD [facility] HOSPITAL AEROBIC W/ID ISOLATES IAADIADOO [address] [facility] CCUS GROUP A HOSPITAL [id number] ON HOSPITAL HOSPITAL SERVICE PER HOUR IAADIADOO [address] [facility] [address] [facility] LIPASE [address] [place] [address] URNLS DIP [address] [facility] HOSPITAL LET REAGENT AUTO MICROSCOP Y GENERAL [address] HEMOGLOBI [address] SF JOSE ANTONIO MORAN N 4 NURSE PETER VELA A1C NER GR IM ADM 35902 [facility] PRQ ID 4 [facility] DISTRICT SUBQ/IM HLTH DEPT HLTH DEPT NJXS 1 RESHMA RESHMA VACCINE IM ADM 82582 [facility] PRQ ID 4 [facility] DISTRICT SUBQ/IM HLTH DEPT HLTH DEPT NJXS EA RESHMA RESHMA VACCINE HEPB 87685 [facility] VACCINE [facility] ADULT 3 HLTH DEPT HLTH DEPT DOSE RESHMA RESHMA SCHEDULE FOR IM USE HEPA 45052 [facility] VACCINE 4 [facility] ADULT HLTH DEPT HLTH DEPT DOSE FOR RESHMA RESHMA INTRAMUSC ULAR USE RADEX 70291 [facility] [place] ABDOMEN 4 RADIOLOGY RHO COMPL W/DCBTS&/ [place] [address] [facility] [place] ABDOMINAL 4 RADIOLOGY RHO REAL TIME W/IMAGE DOCUMENTA TION DXA BONE 58870 [facility] [place] DENSITY 4 RADIOLOGY RHO STUDY 1/> SITES AXIAL SKEL COMPRE 16188 DILEEP FREEMAN SET AUDIOMETR 4 PHYSICIAN Y PRACTICE THRESHOLD L EVAL SP RECOGNIJ TYMPANOME 25653 MAC[facility] FREEMAN SET TRY 4 PHYSICIAN PRACTICE L HEPATITIS 23620 [facility] 4 Y Y [facility] HEPATITIS 91345 [facility] SURF 4 Y Y [facility] HBSAB PROTHROMB 45047 [facility] IN TIME 4 Y Y HOSPITAL HOSPITAL Encounters Encounter Start End Date Code Location Performer Type Date EMERGENCY [address] [facility] DE[facility] 7 7 CLARISSA VISIT EMERGENCY HIGH PHYS SEVERITY& THREAT FUNJ EMERGENCY 69927 [facility] 7 7 CLARISSA DEPARTMEN EMERGENCY T VISIT PHYS HIGH/URGE NT SEVERITY EMERGENCY 94888 [place] [facility] DEPT 7 7 MEDICAL VISIT SERV HIGH FOUNDATIO SEVERITY& N THREAT FUN EMERGENCY 05979 7 7 HEALTHCAR DEPARTMEN E T VISIT HOSPITALS HIGH/URGE NT SEVERITY [facility]OSPITAL [facility] - 7 7 [facility] OUTPATIEN E T HOSPITALS EMERGENCY 10477 [facility] DEPT 7 7 CLARISSA VISIT EMERGENCY HIGH PHYS SEVERITY& THREAT [facility] OCALA - 7 7 [facility] 74686 [facility] HIGH SEVERITY& THREAT [facility] OCALA - 7 7 [facility] T EMERGENCY 11947 [facility] DE[facility] 7 7 MEDICAL VISIT SERV HIGH FOUNDATIO SEVERITY& N THREAT [facility] OFFICE 42029 [facility] 7 7 FAMILY T VISIT PHYSICIAN 15 S PLLC MINUTES EMERGENCY 55290 [facility] 7 7 CLARISSA DEPARTMEN EMERGENCY T VISIT PHYS HIGH/URGE NT SEVERITY HOSPITAL - 7 7 [facility]ALTHCAR INPATIENT E HOSPITALS EMERGENCY 49187 [place] [facility] DE[facility] 7 7 MEDICAL VISIT SERV HIGH FOUNDATIO SEVERITY& N THREAT [facility] 7 [facility] T EMERGENCY 19040 [facility] 7 7 CLARISSA DEPARTMEN EMERGENCY T VISIT PHYS HIGH/URGE NT SEVERITY EMERGENCY 50966 [facility] DEPT 7 7 CLARISSA VISIT EMERGENCY HIGH PHYS SEVERITY& THREAT FUNCJ EMERGENCY 34045 [facility] 7 7 PHYSICIAN U VISIT S, PLLC HIGH SEVERITY& THREAT FUNCJ OFFICE 52788 [facility] CONSULTAT 7 7 MEDICAL ION SERV NEW/ESTAB FOUNDATIO PATIENT N 80 MIN EMERGENCY 49088 [facility] ROSEN[facility] 7 7 MEDICAL DEPARTMEN SERV T VISIT FOUNDATIO MODERATE N SEVERITY EMERGENCY 75709 [facility] DEPT 7 7 CLARISSA VISIT EMERGENCY HIGH PHYS SEVERITY& THREAT FUNCJ EMERGENCY 71395 [facility] 6 6 CLARISSA DEPARTMEN EMERGENCY T VISIT PHYS HIGH/URGE NT SEVERITY EMERGENCY 78031 [facility] 6 6 CLARISSA PAT DEPARTMEN EMERGENCY T VISIT PHYS HIGH/URGE NT SEVERITY [facility] [place] [address] 6 [facility] T OFFICE 63571 [facility] 6 6 FAMILY T VISIT PHYSICIAN 15 S PLLC MINUTES EMERGENCY 18681 [facility] MATIAS DEPT 6 6 CLARISSA VISIT EMERGENCY HIGH PHYS SEVERITY& THREAT FUNCJ EMERGENCY 62964 [facility] ARNOLD DEPT 6 6 CLARISSA LAST VISIT EMERGENCY HIGH PHYS SEVERITY& THREAT FUNCJ EMERGENCY [address] 6 6 MEDICAL DEPARTMEN SERV T VISIT FOUNDATIO LOW/MODER N SEVERITY OFFICE 30995 [facility] 6 6 NURSE REGINALD T VISIT PRACTITIO 25 NER GR MINUTES EMERGENCY 69397 [facility] 6 6 CLARISSA PAT DEPARTMEN EMERGENCY T VISIT PHYS HIGH/URGE NT SEVERITY [facility]OSP[facility] [place] - 6 6 [facility] T [facility] 6 [facility] T OFFICE 81287 [facility] 6 6 FOOT & T NEW 30 ANKLE CE MINUTES OFFICE 62175 MAN[facility] 6 6 FAMILY T VISIT PHYSICIAN 15 S PLLC MINUTES EMERGENCY 70294 [facility] DIAMOND INA 6 6 MEDICAL DEPARTMEN SERV T VISIT FOUNDATIO MODERATE N SEVERITY EMERGENCY 36289 [facility] DEPT 6 6 CLARISSA KATHY VISIT EMERGENCY HIGH PHYS SEVERITY& THREAT FUNCJ OFFICE 31774 MANUEL AYALA [facility] 6 6 FAMILY T VISIT PHYSICIAN 25 S PLLC MINUTES EMERGENCY 27508 [facility] DEPT 6 6 CLARISSA PAT VISIT EMERGENCY HIGH PHYS SEVERITY& THREAT FUNCJ EMERGENCY 02242 [facility] DEPT 6 6 CLARISSA KATHY VISIT EMERGENCY HIGH PHYS SEVERITY& THREAT FUNCJ OFFICE [address] [facility] 6 6 Y OF RTHY JERRY T VISIT ILLINO[place] 15 HOSPI MINUTES OFFICE 68747 MANUEL AYALA [facility] 6 6 FAMILY T VISIT PHYSICIAN 15 S PLLC MINUTES EMERGENCY 36272 [facility] 6 6 CLARISSA PAT DEPARTMEN EMERGENCY T VISIT PHYS HIGH/URGE NT SEVERITY [facility]OSPITAL [facility] - 6 6 [facility] T OFFICE 45450 MANUEL AYALA OUTPATIEN 5 5 FAMILY T VISIT PHYSICIAN 15 S PLLC MINUTES OFFICE 57556 [facility] AYALA OUTPATIEN 5 5 FAMILY T VISIT PHYSICIAN 25 S PLLC MINUTES OFFICE 61849 MANUEL AYALA OUTPATIEN 5 5 FAMILY T VISIT PHYSICIAN 15 S PLLC MINUTES EMERGENCY 70626 [place] 5 5 COMMUNITY DEPARTMEN HOSPITAL T VISIT HIGH/URGE NT SEVERITY EMERGENCY 28605 [facility] DEPT 5 5 CLARISSA COLLINS VISIT EMERGENCY HIGH PHYS SEVERITY& THREAT [facility] [place] - 5 5 [facility] [place] - 5 5 [facility] T EMERGENCY 19742 [facility] CELL[facility] 5 5 CLARISSA - YORBA [facility] EMERGENCY PAT T VISIT PHYS HIGH/URGE NT SEVERITY HOSPITAL [facility] - 5 5 [facility] T EMERGENCY 63970 [facility] 5 5 [facility] T VISIT FOUNDATIO MODERATE N SEVERITY EMERGENCY 55631 UNIVERSIT 5 5 [facility] T VISIT HIGH/URGE NT SEVERITY [facility] T OFFICE 34699 [facility] FAMILY T VISIT PHYSICIAN 25 S PLLC MINUTES EMERGENCY 47939 [facility] 5 5 [facility] PHYS HIGH/URGE NT SEVERITY [facility]OSP[facility] [place] - 5 5 [facility] T EMERGENCY 43360 [place] 5 5 [facility] T VISIT MODERATE SEVERITY OFFICE 36143 [facility]EL [facility] 5 FAMILY T VISIT PHYSICIAN 15 S PLLC MINUTES EMERGENCY 42908 [facility] DEPT 5 5 CLARISSA COLLINS VISIT EMERGENCY HIGH PHYS SEVERITY& THREAT [facility] [place] - [address] [facility] OFFICE 82270 [facility]ILY T VISIT PHYSICIAN 15 S PLLC MINUTES EMERGENCY 81890 [place] 5 5 [facility] T VISIT MODERATE SEVERITY EMERGENCY 99254 [facility] 5 5 CLARISSA PAT DEPARTMEN EMERGENCY T VISIT PHYS HIGH/URGE NT SEVERITY [facility] T OFFICE 60548 MANUEL AYALA OUTPATIEN 5 5 FAMILY T VISIT PHYSICIAN 15 S PLLC MINUTES [facility] OCAL[facility] - 5 5 [facility] T EMERGENCY 74042 [facility] CLARISSA THO VISIT EMERGENCY HIGH PHYS SEVERITY& THREAT FUNCJ OFFICE 11854 [facility] JOSE ANTONIO MORAN OUTPATIEN 4 4 NURSE T NEW 45 PRACTITIO MINUTES NER GR OFFICE 78811 MANUEL AYALA OUTPATIEN 4 4 FAMILY T VISIT PHYSICIAN 15 S PLLC MINUTES OFFICE 99942 MANUEL YRIS AYALA OUTPATIEN 4 4 FAMILY T VISIT PHYSICIAN 25 S PLLC MINUTES EMERGENCY 58531 [facility] MATIAS DEPT 4 4 CLARISSA MUH VISIT EMERGENCY HIGH PHYSI SEVERITY& [facility] T OFFICE 62692 DILEEP CLARK OUTPATIEN 4 4 PHYSICIAN LES T VISIT PRACTICE 15 L MINUTES OFFICE 34048 [facility] 4 4 MEDICAL BELLA T VISIT SERV 25 FOUNDATIO MINUTES HOSPITAL UNIVERSIT - 4 4 [facility] T OFFICE 46902 DILEEP CLARK CONSULTAT 4 4 PHYSICIAN LES ION PRACTICE NEW/ESTAB L PATIENT 40 MIN OFFICE 93591 MANUEL YRIS AYALA OUTPATIEN 4 4 FAMILY T VISIT PHYSICIAN 15 S PLLC MINUTES
--- OUTSIDE RECORDS SUMMARY | 2017-06-14 12:56 | External Medical Summary Rpt ---
Author Author , UNIQUE CALHOUN Address Unknown Phone [email or web address] Care Team Providers Care Hydrogen Treater Name Role Phone SIMONE CADET, SIMONE CHICHI Unavailable Unavailable ARNOLD, ARNOLD Unavailable Unavailable ARNOLD LAST, ARNOLD Unavailable Unavailable LAST EDUARDO LES, EDUARDO Unavailable Unavailable LES LAYTON, LAYTON Unavailable Unavailable AVALLONE, AVALLONE Unavailable Unavailable BEINEKE, BEINEKE Unavailable Unavailable PULIDO, PULIDO Unavailable Unavailable [facility] Unavailable Unavailable [facility], [facility] PHYSICIAN Unavailable Unavailable PRACTICE L, [facility], [facility] Unavailable Unavailable [facility] Unavailable Unavailable SERVICE, [facility] MICHAEL EDGAR, MICHAEL Unavailable Unavailable [...] Unavailable [facility] Unavailable Unavailable PHYSICIAN PRA, [facility] PHYSICIAN [facility], Unavailable [...] Unavailable SERVICES O, [facility] O [facility], [facility] Unavailable Unavailable SHAY III, SHAY Unavailable Unavailable III SHAY III MARY KATE, Unavailable Unavailable SHAY III MARY KATE [facility] Unavailable Unavailable GROUP PS, [facility] Unavailable Unavailable [facility], [facility] MATTHEW, MATTHEW Unavailable Unavailable [facility] NURSE Unavailable Unavailable PRACTITIONER GR, [facility] NURSE PRACTITIONER GR GOOD JERRY, Unavailable Unavailable GOOD JERRY BRANDAN PET, BRANDAN PET Unavailable Unavailable BENSON, BENSON Unavailable Unavailable [facility] Unavailable [facility], [facility], Unavailable Unavailable [facility] JESSICA, JESSICA Unavailable Unavailable [place] [...] CONSULTING SRV, LINDA GALLO MD CONSULTING SRV [facility] Unavailable Unavailable EMS, [facility] Unavailable Unavailable EMS, [facility] Unavailable Unavailable PHYSICIANS PLL[facility], [facility] PHYSICIANS [facility], Unavailable Unavailable PLLC, [facility], [facility], [...] [facility] Unavailable Unavailable PHYSICIAN SERVI, [facility] WEBBER, WEBBER Unavailable Unavailable WEBBER RAY, WEBBER Unavailable Unavailable RAY SWINEY PAT, SWINEY Unavailable Unavailable PAT FLORENCIO TER, FLORENCIO TER Unavailable Unavailable [facility] Unavailable Unavailable HOSPITALS, [facility], Unavailable Unavailable [facility] Unavailable [facility] BRENNAN MARY KATE, BRENNAN Unavailable Unavailable MARY KATE JIM REGINALD, JIM Unavailable Unavailable REGINALD ALANIS, ALANIS Unavailable Unavailable [facility] Unavailable Unavailable DEPT RESHMA, [facility] Unavailable Unavailable [facility], [facility] NICOLAS VALENZUELA Unavailable Unavailable INDUINDU GIMENEZ Unavailable Unavailable ZAGUROVSKAYA, Unavailable Unavailable ZAGUROVSKAYA OLGA, OLGA Unavailable Unavailable Purpose Continuity of Care Document - 06-16-2014 through 2016 Problems Code Diagnosis DOS Provider Status D539 NUTRITIONAL 05-08-2017 [facility]PEC[facility] D696 THROMBOCYTO 05-08-2017 [facility] PENIA [facility] UNSPECIFIED FOUNDATION R109 UNSPECIFIED 05-08-2017 [facility] ABDOMINAL SERV PAIN [facility]OUND[facility] R140 ABDOMINAL 05-08-2017 [facility] DISTENSION SERV GASEOUS FOUNDATION K7581 NONALCOHOLI [...] O FAILURE WITHOUT COMA R51 HEADACHE 02-14-2017 [facility] Z794 SNF 02-14-2017 [facility] CURRENT USE [facility] Z7984 SNF 02-14-2017 [facility] USE OF ORAL [facility] HYPOGLYCEMI C DRUGS Z9119 PATIENTS 02-14-2017 [facility] NONCOMPLIAN [facility] CE W/OTH HOSPITAL MED TX & REGIMEN D649 ANEMIA 01-31-2017 [facility] UNSPECIFIED SERV [facility]OUNDATION K922 GASTROINTES 01-30-2017 [facility] TINAL SERV HEMORRHAGE FOUNDATION UNSPECIFIED E1165 TYPE 2 01-29-2017 [facility] DIABETES [facility] MELLITUS PHYSICIANS WITH PLLC HYPERGLYCEM IA I49742 PAIN IN 01-29-2017 [facility] RIGHT FOOT [facility]ILY PH[facility] PLLC D21394 PAIN IN 01-29-2017 [facility] LEFT FOOT [facility] PH[facility] PLLC R600 LOCALIZED 01-26-2017 [facility] EDEMA N EMERGENCY PHYS R739 HYPERGLYCEM 01-26-2017 [facility] IA N EMERGENCY UNSPECIFIED PHYS D62 ACUTE 01-15-2017 [facility] POSTHEMORRH SERVICES AGIC ANEMIA K209 ESOPHAGITIS [...] AWAITING 01-12-2017 [facility] STATUS Z93408 EFFUSION 12-27-2016 [facility] RIGHT ANKLE N EMERGENCY PHYS I84870 EFFUSION 12-27-2016 [facility] LEFT ANKLE N EMERGENCY PHYS N390 URINARY 12-20-2016 [facility] TRACT N EMERGENCY INFECTION PHYS SITE NOT SPECIFIED R0609 OTHER FORMS 12-20-2016 [facility] [place] OF DYSPNEA RADIOLOGY R110 NAUSEA 12-20-2016 [facility] N EMERGENCY PHYS R079 CHEST PAIN 12-16-2016 [facility] UNSPECIFIED SERV [facility] R1084 GENERALIZED 12-16-2016 [facility] ABDOMINAL SERV PAIN [facility] R9431 ABNORMAL 12-16-2016 [facility] ELECTROCARD SERV IOGRAM FOUNDATION I8501 ESOPHAGEAL 11-22-2016 [facility] VARICES [facility] WITH [facility] BLEEDING R1310 DYSPHAGIA 11-22-2016 [facility] UNSPECIFIED SERV [facility] Z0189 ENCOUNTER 11-22-2016 [facility] OTHER SERV SPECIFIED [facility] SPECIAL EXAMINATION S K228 OTHER 11-21-2016 [facility] SPECIFIED SERV DISEASES OF FOUNDATION ESOPHAGUS R490 DYSPHONIA 11-21-2016 [facility] H46856W OTH FORGEN 11-20-2016 [place] [facility] OBJ RESP [...] FINDING OF LUNG FIELD Z4682 ENCOUNTER 11-17-2016 [facility] FITTING & SERV ADJUST [facility]OUND[facility] NON-VASCULA R CATHETER I2119 ST 11-16-2016 [place] [facility] E[facility] SERV HI INVOLV [facility]OUNDATION OTH CORONARY ART INF WALL [...] J9811 ATELECTASIS 11-13-2016 [facility] F0506EU OTHER 11-13-2016 [place] [facility] POSTPROCEDU SERV RAL [...] PRACTITIONE UNSPECIFIED R GR J849 INTERSTITIA 11-11-2016 [facility] L PULMONARY SERV DISEASE FOUNDATION UNSPECIFIED J984 OTHER 11-11-2016 [facility] DISORDERS SERV OF LUNG FOUNDATION Z452 ENCOUNTER 11-09-2016 [facility] ADJUSTMENT& SERV MGMT FOUNDATION VASCULAR ACCESS DEVICE E875 HYPERKALEMI 11-08-2016 S NURSE Javy Whitney GR I459 CONDUCTION 11-08-2016 [facility] DISORDER SERV UNSPECIFIED FOUNDATION K920 HEMATEMESIS 11-08-2016 AC LOPEZ, [facility] K8020 CALCULUS GB 11-07-2016 [facility] W/O SERV CHOLECYSTIT FOUNDATION IS W/O OBSTRUCTION R188 OTHER 11-07-2016 [facility] ASCITES SERV [facility]ATION Z8719 PERSONAL 11-07-2016 [facility] HISTORY SERV OTHER FOUNDATION DISEASES DIGESTIVE SYSTEM R0602 SHORTNESS 11-06-2016 [facility] R531 WEAKNESS 11-06-2016 AC LOPEZ, [facility] M542 CERVICALGIA 10-21-2016 [facility] SERV [facility] M6281 MUSCLE 10-21-2016 [facility] WEAKNESS [facility] EMS R1030 LOWER 10-21-2016 [facility] ABDOMINAL SERV PAIN FOUNDATION UNSPECIFIED R05 COUGH 10-09-2016 [facility] J189 PNEUMONIA 09-22-2016 [place] UNSPECIFIED MEDICAL ORGANISM IMAGING ASS Z09 ENC F/U 09-22-2016 [facility] EXAM AFTR MEDICAL CMPL TX OTH IMAGING ASS THAN MALIG NEOPLSM R509 FEVER 09-19-2016 [place] UNSPECIFIED [facility]ICAL IMAGING ASS H1133 CONJUNCTIVA 07-28-2016 [facility] HEMORRHAGE PHYS BILATERAL R030 ELEVATED 07-28-2016 [facility] BLOOD-PRESS N EMERGENCY URE READING PHYS WITHOUT DX HTN R0789 OTHER CHEST 07-28-2016 [facility]IN N EMERGENCY PHYS S046QZK OTHER 07-28-2016 [facility] SPECIFIED RADIOLOGY INJURIES THORAX INITIAL ENC H1032 UNSPECIFIED 07-24-2016 [facility] FAMILY CONJUNCTIVI PHYSICIANS TIS LEFT [facility] EYE H1132 CONJUNCTIVA 07-22-2016 [facility] L N EMERGENCY HEMORRHAGE PHYS LEFT EYE Q977OIP CONTUSION 07-22-2016 [facility] OF N EMERGENCY ABDOMINAL PHYS WALL INITIAL ENCOUNTER E8342 HYPOMAGNESE 07-01-2016 [facility] TONI N EMERGENCY PHYS G0430 ACUTE 07-01-2016 [facility] NECROTIZING N EMERGENCY PHYS HEMORRHAGIC ENCEPHALOPA THY UNS R1110 VOMITING 06-28-2016 [facility] UNSPECIFIED SERV FOUNDATION G4710 HYPERSOMNIA 06-11-2016 LINDA GALLO MD UNSPECIFIED CONSULTING SRV D490 NEOPLASM OF 06-07-2016 [place] [facility] UNS SERV BEHAVIOR FOUNDATION DIGESTIVE SYSTEM K766 PORTAL 06-07-2016 [place] [facility] HYPERTENSIO SERV N FOUNDATION R161 SPLENOMEGAL 06-07-2016 [place] [facility] Y NOT SERV ELSEWHERE [facility]OUNDATION CLASSIFIED G479 SLEEP 06-03-[facility] R0683 SNORING 06-03-2016 [facility] R5383 OTHER 06-03-2016 [facility] U50330 PAIN IN 05-20-2016 [place] UNSPECIFIED FOOT & LIMB ANKLE CE R072 PRECORDIAL 05-16-2016 LINDA JOSHI MD CONSULTING SRV G4733 OBSTRUCTIVE 05-02-2016 [facility] SLEEP [facility]ILY [facility]ULT [facility]YSIC[facility] PEDIATRIC PLL Q92185V TOX EFF OTH 04-08-2016 [facility] GASES N EMERGENCY FUMES & PHYS VAPORS ACC INITIAL ENC M545 LOW BACK 03-04-2016 [facility] PAIN [facility]ILY PHYSICIANS PLL R112 NAUSEA WITH 03-04-2016 [facility] UNSPECIFIED R1033 PERIUMBILIC 02-28-2016 [facility] AL PAIN N EMERGENCY PHYS R5381 OTHER 01-29-2016 [facility] MALAISE N EMERGENCY PHYS R17 UNSPECIFIED 01-26-2016 [facility] HOSPI L0390 CELLULITIS 01-08-2016 [facility] UNSPECIFIED FAMILY PHYSICIANS PLLC M546 PAIN IN 11-10-2015 [facility] THORACIC N EMERGENCY SPINE PHYS D11252 MUSCLE 11-10-2015 [facility] SPASM OF N EMERGENCY BACK PHYS K6389 OTHER 09-05-2015 [facility] [place] SPECIFIED RADIOLOGY DISEASES OF INTESTINE B370 CANDIDAL 08-15-2015 [facility] STOMATITIS FAMILY PHYSICIANS PLL K222 ESOPHAGEAL 07-26-2015 [facility] OBSTRUCTION REGIONAL PHYSICIAN PRA K319 DISEASE OF 07-26-2015 [facility] DUODENUM GROUP PS UNSPECIFIED K449 DIAPHRAGMAT 07-26-2015 [facility] IC HERNIA ANESTHESIA W/O GROUP PS OBSTRUCTION OR GANGRENE 4660 ACUTE 06-07-2015 [facility] BRONCHITIS [facility] 66064 ABDOMINAL 06-07-2015 [facility] PAIN, FAMILY GENERALIZED PHYSICIANS PLLC 7242 LUMBAGO 06-01-2015 [facility] [place] [facility] 7862 COUGH 06-01-2015 [facility] 01195 ABDOMINAL 06-01-2015 [facility] [place] PAIN RIGHT RADIOLOGY LOWER QUADRANT 59252 DIAB W/O 05-31-2015 [facility] COMP TYPE N EMERGENCY II/UNS NOT PHYS STATED [facility] 4019 UNSPECIFIED 05-31-2015 [facility] N 4549 ASYMPTOMATI 05-31-2015 [facility] C VARICOSE [facility] 5715 CIRRHOSIS 05-31-2015 [facility] MENTION OF ALCOHOL 89351 OSTEOARTHRO 05-31-2015 [facility] S UNSPEC COMMUNITY WHETHER HOSPITAL GEN/LOC UNSPEC SITE 7213 LUMBOSACRAL 05-31-2015 [facility] N EMERGENCY SPONDYLOSIS PHYS WITHOUT MYELOPATHY 38703 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 [facility] 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 59179 OTHER 05-31-2015 [facility] ASCITES [facility] V5867 LONG-TERM 05-31-2015 [facility] V5869 LONG-TERM 05-31-2015 [facility] (CURRENT) [facility] USE OF HOSPITAL OTHER MEDICATIONS 52523 NAUSEA WITH 05-26-2015 [facility] VOMITING [facility] 07448 ABDOMINAL 05-26-2015 [facility] PAIN RIGHT N EMERGENCY UPPER PHYS QUADRANT 76703 ABDOMINAL 05-26-2015 [facility] PAIN, LEFT N EMERGENCY LOWER PHYS QUADRANT 10738 ABDOMINAL 05-26-2015 [facility] PAIN, N EMERGENCY EPIGASTRIC PHYS V145 PERSONAL 05-26-2015 [facility] HISTORY OF COMMUNITY ALLERGY TO HOSPITAL NARCOTIC AGENT 92991 ABDOMINAL 05-04-2015 [facility] UNSPECIFIED SITE 5718 OTHER 04-12-2015 [facility] CHRONIC [facility] C LIVER DISEASE 35677 UNSPEC 04-12-2015 [facility] INJURY LIVR N EMERGENCY W/O PHYS MENTION OPN WOUND IN CAV 06551 DIAB W/O 03-27-2015 [facility] MENTION FAMILY COMP TYPE PHYSICIANS II/UNS TYPE PLLC [facility] 25650 DIVERTICULI 03-27-2015 [facility] TIS OF FAMILY COLON PHYSICIANS PLLC 5589 OTH&UNSPEC 03-20-2015 [facility] NONINFECTIO N PHYSICIAN US SERVI GASTROENTER ITIS&COLITI S 5723 PORTAL 03-16-2015 [facility] [place] HYPERTENSIO RADIOLOGY N 46299 ABDOMINAL 03-16-2015 [facility] PAIN, N EMERGENCY PERIUMBILIC PHYS V146 PERSONAL 03-16-2015 [place] [facility] ALLER[facility] TO [facility] ANALGESIC AGENT 5289 OTHER&UNSPE 02-14-2015 [facility] CIFIED N EMERGENCY DISEASES PHYS THE ORAL SOFT TISSUES 5290 GLOSSITIS 02-14-2015 [facility] N EMERGENCY PHYS 2382 NEOPLASM OF 01-24-2015 [facility] UNCERTAIN FAMILY BEHAVIOR OF PHYSICIANS SKIN PLLC 4871 INFLUENZA 10-31-2014 [facility] WITH OTHER N PHYSICIAN RESPIRATORY SERVI MANIFESTATI ONS 04347 FEVER 10-31-2014 [facility] UNSPECIFIED N PHYSICIAN SERVI 486 PNEUMONIA, 10-30-2014 [facility] ORGANISM N EMERGENCY UNSPECIFIED PHYS 05713 OBESITY, 08-24-2014 [facility] NURSE UNSPECIFIED PRACTITIONE R GR V069 NEED PROPH 07-28-2014 [facility] W/UNSPEC [facility] DEPT COMB RESHMA VACCINE 02347 DISORDER OF 07-05-2014 [facility] [place] BONE AND RADIOLOGY CARTILAGE UNSPECIFIED 7948 NONSPECIFIC 07-05-2014 [facility] [place] ABNORMAL RADIOLOGY RESULTS LIVR FUNCTION STUDY 49272 DYSFUNCTION 06-29-2014 [place] OF PHYSICIAN EUSTACHIAN PRACTICE L TUBE 39329 SUBJECTIVE 06-29-2014 [place] TINNITUS PHYSICIAN PRACTICE L 89518 SENSORINEUR 06-29-2014 [place] AL HEARING PHYSICIAN LOSS [...] PH AR MA CY #3 01 6 OK 65 08 09 12 2 00 KE [...] ve G 79 20 20 04 [place] HI 75 17 17 96 X 9 17 [...] 80 2- 1- 00 01 UC ve HI 21 20 20 03 [place] DE 61 [...] 20 5- 4- 00 01 UC ve HI 76 20 20 02 [place] N 01 [...] 80 9- 8- 00 01 UC ve HI 21 20 20 03 [place] DE 61 [...] OR 20 9- 1- 01 UC ve HI 76 20 20 02 [place] N 01 [...] 20 3- 3- 00 01 UC ve HI 76 20 20 02 [place] N 01 [...] ve G 79 20 20 97 [place] HI 75 17 17 10 X 9 96 CV 75 S -2 PH 5 AR KW MA IK CY PE N LL C, DB A CV S PH AR MA CY #3 01 6 FU 00 05 06 30 30 00 KE Ac RO 37 -2 -2 .0 00 NT ti SE 80 4- 3- 00 01 UC ve HI 21 20 20 03 [place] DE 61 [...] PH AR MA CY #3 01 6 HI 57 05 06 30 30 00 KE [...] PH AR MA CY #3 01 6 HI 57 04 05 30 30 00 KE [...] 20 3- 2- 00 00 UC ve HI 76 20 20 99 KY N 01 [...] ve G 79 20 20 97 [place] HI 75 17 17 10 X 9 96 [...] PH AR MA CY #3 01 6 HI 57 03 04 30 30 00 KE [...] 20 7- 7- 00 00 UC ve HI 76 20 20 99 KY N 01 [...] SE 44 7- 7- 26 UC ve HI 29 20 20 25 [place] DE 93 [...] 80 1- 0- 00 00 UC ve HI 20 20 20 97 [place] DE 81 [...] 00 [place] RA 30 17 17 11 HI 5 65 CV DE S PH 10 AR MA MG CY TA LL BL C, ET DB A CV S PH AR MA CY #3 01 6 HI 57 02 02 30 30 00 KE [...] 80 1- 0- 00 00 UC ve HI 20 20 20 97 [place] DE 81 17 17 66 0 62 CV 20 S PH MG AR MA TA CY BL ET LL C, DB A CV S PH AR MA CY #3 01 6 ME 68 01 02 60 30 00 KE Ac TF 38 -1 -1 .0 00 NT ti OR 20 0- 0- 00 00 UC ve HI 76 20 20 99 [place] N 01 [...] ve G 79 20 20 97 [place] HI 75 16 17 10 X 9 96 [...] SCHE RESHMA RESHMA DULE FOR IM USE Procedures Procedure DOS Code Location Performer Comment RADEX 89693 [place] BURG[place] ABDOMEN 1 7 MEDICAL SERV ANTEROPOS FOUNDATIO TERIOR N VIEW BLOOD 95668 [place] MATTHEW SMEAR 7 MEDICAL PERIPHERA SERV L INTERP FOUNDATIO PHYS N W/WRIT REPORT INITIAL [address] [place] [address] [facility] CARE/DAY PHYSICIAN DECALVO 70 SERVI MINUTES COMPREHEN 93361 [place] [facility] SIVE 7 [facility] HEALTHCAR METABOLIC E E PANEL [facility] THERAPEUT 59584 [place] [facility] IC 7 HEALTHCAR HEALTHCAR PROPHYLAC E E TIC/DX [facility] INJECTION SUBQ/IM ONDANSETR Q0162 [facility] ON 1 MG 7 HEALTHCAR HEALTHCAR ORL NOT E E EXCEED 48 [facility] [place] [address] [facility] LIPASE 7 HEALTHCAR HEALTHCAR E E [facility] BLOOD 09761 [place] COUNT 7 HEALTHCAR HEALTHCAR COMPLETE E E AUTOMATED [facility] URNLS DIP 36167 [facility] 7 HEALTHCAR HEALTHCAR STICK/TAB E E LET RGNT [facility] AUTO W/O MICROSCOP Y FOR DIAB A5513 [facility] ONLY MX 7 BRACE BRACE DNSITY PROSTH PROSTH INSRT INC INC CSTM MOLD CSTM EA DIAB ONLY A5500 [facility] FIT CSTM 7 BRACE BRACE PREP&SPL PROSTH PROSTH SHOE MX INC INC DNSITY INSRT OBSERVATI 11240 [facility] ON/INPATI 7 MEDICINE EDGAR ENT [facility] O [place] [address] [place] [address] [facility]ENSON DAY ABDOMEN & 7 RADIOLOGY III PELVIS W/O CONTRAST MATERIAL COMPREHEN [address] [facility] PANEL PROTHROMB 10441 DILEEP FALK IN TIME 7 [facility] BLOOD 74332 DILEEP FALK COUNT [address] [place] [address] [place] [address] DILEEP FALK AMMONIA [address] [place] [address] HOSPITAL PROTHROMB 80171 DILEEP SORTOON IN TIME 7 [facility] GLUC BLD 52290 DILEEP SORTOON GLUC MNTR 7 [facility] CLEARED FDA SPEC HOME USE OBSERVATI 02340 [facility] ON CARE 7 MEDICINE DISCHARGE SERVICES O MANAGEMEN T COMPREHEN [address] HOSPITAL PANEL GLUC BLD 97266 DILEEP FALK GLUC MNTR 7 [facility] CLEARED FDA SPEC HOME USE THROMBOPL 28566 DLIEEP FALK ASTIN [address] [place] [address] HOSPITAL PARTIAL PLASMA/WH OLE BLOOD PROTHROMB 29763 DILEEP FALK IN TIME 7 [facility] BLOOD [address] HOSPITAL AUTO&[place] [address] DILEEP FALK AMMONIA [address] [place] [address] [place] [address] DILEEP FALK AMMONIA [address] [place] [address] HOSPITAL BLOOD 67967 DILEEP FALK COUNT [address] [place] [address] HOSPITAL AUTO&AUTO DIFRNTL WBC PROTHROMB 21944 DILEEP FALK IN TIME 7 [facility] [place] [address] DILEEP FALK LIPASE [address] [place] [address] HOSPITAL URNLS DIP 42801 DILEEP FALK [address] [place] [address] [facility] HOSPITAL LET REAGENT AUTO MICROSCOP Y COMPREHEN 09[address] HOSPITAL PANEL INITIAL 39333 [facility] OBSERVATI 7 MEDICINE ON SERVICES CARE/DAY O 70 MINUTES BLD BANK 26026 [facility] VALENZUELA PHYS SVCS 7 MEDICAL DIFFC SERV CROSS FOUNDATIO MATCH&/EV N AL REP ESOPHAGOG 42540 [place] SUZAN KEMPLILIAND 7 MEDICAL ENOSCOPY SERV TRANSORAL FOUNDATIO N DIAGNOSTI C ANES 38440 [place] UPPER GI 7 MEDICAL ENDOSCOPY SERVICES PROXIMAL TO DUODENUM INITIAL 98868 [facility] 7 CLARISSA ADRIAN CARE/DAY PHYSICIAN DECALVO 70 SERVI MINUTES BLD BANK 16153 [place] NICOLAS PHYS SVCS 7 MEDICAL DIFFC SERV CROSS FOUNDATIO MATCH&/EV N AL REP BLOOD 29597 [facility] COUNT [address] [place] [address] AUTOMATED COMPREHEN 59956 [facility] SIVE [address] [place] [address] PANEL RADIOLOGI 81754 [facility] [place] OLGA C EXAM 7 RADIOLOGY CHEST 2 VIEWS FRONTAL&L ATERAL DUP-SCAN 51549 [place] ROBERTH ARTL TIMOTHY 7 MEDICAL ABDL/PEL/ SERV SCROT&/RP FOUNDATIO R ORGN N COM RADIOLOGI 90795 [place] MERHAR C EXAM 7 MEDICAL CHEST 2 SERV VIEWS FOUNDATIO FRONTAL&L N ATERAL ECG 46339 [place] NIESHA ROUTINE 7 MEDICAL ECG SERV W/LEAST FOUNDATIO 12 LDS N I&R ONLY DUP-SCAN 00830 [place] WEBBER ARTL TIMOTHY 7 MEDICAL ABDL/PEL/ SERV SCROT&/RP FOUNDATIO R ORGN N [facility] 28278 [place] AVALLONE DISCHARGE 7 MEDICAL DAY SERV MANAGEMEN FOUNDATIO T > 30 N MIN SBSQ 56718 [facility] 7 MEDICAL CARE/DAY SERV 35 FOUNDATIO MINUTES N SWALLOWIN 01487 [place] DL BYNUMCJ 7 MEDICAL W/CINERAD SERV IOGRAPY/V FOUNDATIO IDRADIOG N SBSQ 20296 [place] [address] MEDICAL CARE/DAY SERV 25 FOUNDATIO MINUTES N SBSQ 37425 [place] [address] MEDICAL CARE/DAY SERV 25 FOUNDATIO MINUTES N RADIOLOGI 93665 [place] LAYLA C 7 MEDICAL AYA EXAMINATI SERV ON CHEST FOUNDATIO SINGLE N VIEW FRONTAL ECG 61620 [place] BENSON ROUTINE 7 MEDICAL ECG SERV W/LEAST FOUNDATIO 12 LDS N I&R ONLY RADIOLOGI 29424 [place] ALANIS C 7 MEDICAL EXAMINATI SERV ON CHEST FOUNDATIO SINGLE N VIEW FRONTAL RADIOLOGI 14432 [place] ALANIS C 7 MEDICAL EXAMINATI SERV ON CHEST FOUNDATIO SINGLE N VIEW FRONTAL CRITICAL 81201 [place] ALONDRA CARE 7 MEDICAL ILL/INJUR SERV ED FOUNDATIO PATIENT N INIT 30-74 MIN ECG 44832 [place] DAMIAN ROUTINE 7 MEDICAL ECG SERV W/LEAST FOUNDATIO 12 LDS N I&R ONLY CRITICAL 77491 [place] ALONDRA CARE 7 MEDICAL ILL/INJUR SERV ED FOUNDATIO PATIENT N INIT 30-74 MIN RADIOLOGI 89082 [place] TREVON C 7 MEDICAL EXAMINATI SERV ON CHEST FOUNDATIO SINGLE N VIEW FRONTAL RADIOLOGI 88512 [place] ONEAL C 7 MEDICAL EXAMINATI SERV ON CHEST FOUNDATIO SINGLE N VIEW FRONTAL RADEX 99267 [place] DL ABDOMEN 1 7 MEDICAL SERV ANTEROPOS FOUNDATIO TERIOR N VIEW CRITICAL 88278 [place] AL[facility] CARE 7 MEDICAL ILL/INJUR SERV ED FOUNDATIO PATIENT N INIT 30-74 MIN COLONOSCO 56175 [place] SHEDLOFSK PY FLX DX 7 MEDICAL Y W/COLLJ SERV SPEC WHEN FOUNDATIO PFRMD N ESOPHAGOG 97035 [place] SHEDLOFSK ASTRODUOD 7 MEDICAL Y ENOSCOPY SERV TRANSORAL FOUNDATIO N DIAGNOSTI C CRITICAL 86721 [place] AL[facility]DR[facility] CARE 7 MEDICAL ILL/INJUR SERV ED FOUNDATIO PATIENT N INIT 30-74 MIN SBSQ 14788 [facility] 7 NURSE CARE/DAY PRACTITIO 25 NER GR MINUTES DUP-SCAN 76948 [place] JESSICA ARTL TIMOTHY 7 MEDICAL ABDL/PEL/ SERV SCROT&/RP FOUNDATIO R ORGN N COM RADEX 47142 [place] DL ABDOMEN 1 7 MEDICAL SERV ANTEROPOS FOUNDATIO TERIOR N VIEW RADIOLOGI 40461 [place] TREVON C 7 MEDICAL EXAMINATI SERV ON CHEST FOUNDATIO SINGLE N VIEW FRONTAL RADIOLOGI 70725 [place] INDU C 7 MEDICAL EXAMINATI SERV ON CHEST FOUNDATIO SINGLE N VIEW FRONTAL CRITICAL 36406 [place] [facility] 7 MEDICAL ILL/INJUR SERV ED FOUNDATIO PATIENT N INIT 30-74 MIN CRITICAL 74720 [place] [facility] 7 MEDICAL ILL/INJUR SERV ED FOUNDATIO PATIENT N INIT 30-74 MIN ECG 24103 [place] [facility] ROUTINE 7 MEDICAL ECG SERV W/LEAST FOUNDATIO 12 LDS N I&R ONLY RADIOLOGI 57854 [place] ONEAL C 7 MEDICAL EXAMINATI SERV ON CHEST FOUNDATIO SINGLE N VIEW FRONTAL SBSQ 56069 [facility] 7 NURSE CARE/DAY PRACTITIO 35 NER GR MINUTES RADIOLOGI 18283 [place]ON[place] C 7 MEDICAL EXAMINATI SERV ON CHEST FOUNDATIO SINGLE N VIEW FRONTAL RADEX 14240 [place] JESSICA ABDOMEN 1 7 MEDICAL SERV ANTEROPOS FOUNDATIO TERIOR N VIEW RADIOLOGI 70506 [place] C 7 MEDICAL EXAMINATI SERV ON CHEST FOUNDATIO SINGLE N VIEW FRONTAL RADIOLOGI 08873 [place] WYNNE C 7 MEDICAL MONA EXAMINATI SERV ON CHEST FOUNDATIO SINGLE N VIEW FRONTAL INITIAL 53222 [facility]U INPATIENT 7 NURSE CONSULT PRACTITIO NEW/ESTAB NER GR PT 80 MIN SERVICES 28218 [facility] 7 PHYSICIAN U BTW 10 S, PLLC PM&8 AM AT 24-HR FACI AMB A0427 [place] [facility] 7 AMBULANCE AMBULANCE ALS SERVICE SERVICE EMERGENCY TRANSPORT LEVEL 1 BLD BANK 44948 [facility] 7 MEDICAL AUTHJ SERV DEVIJ FOUNDATIO STANDARD N REPRT ECG 61956 [place] [facility] ROUTINE 7 MEDICAL ECG SERV W/LEAST FOUNDATIO 12 LDS N I&R ONLY GROUND A0425 [place] 7 AMBULANCE AMBULANCE PER SERVICE SERVICE STATUTE MILE GROUND A0425 [facility] MILEAGE 7 AMBULANCE AMBULANCE PER SERVICE SERVICE STATUTE MILE AMB A0427 [place] [facility] 7 AMBULANCE AMBULANCE ALS SERVICE SERVICE EMERGENCY TRANSPORT LEVEL 1 CRITICAL 39914 [facility] CARE 7 PHYSICIAN U ILL/INJUR S, PLLC ED PATIENT INIT 30-74 MIN GROUND A0425 [place] [facility] 7 AMBULANCE AMBULANCE PER SERVICE SERVICE STATUTE MILE AMBULANCE A0429 [facility] SERVICE 7 AMBULANCE AMBULANCE BLS SERVICE SERVICE EMERGENCY TRANSPORT RADIOLOGI 79034 [facility] EXAM 7 MEDICAL CHEST 2 IMAGING VIEWS ASS FRONTAL&L ATERAL SERVICES 69452 [facility] PROVIDED 7 PHYSICIAN U BTW 10 S, PLLC PM&8 AM AT 24-HR FACI GROUND A0425 [facility] MILEAGE 7 [facility] PER [facility] STATUTE EMS EMS MILE OBSERVATI 23465 [facility] ON CARE 7 MEDICINE A DISCHARGE SERVICES O MANAGEMEN T INITIAL 65448 [facility] OBSERVATI 7 MEDICINE A ON SERVICES CARE/DAY O 70 MINUTES RADIOLOGI 05771 [facility] [place] SCALF C EXAM 7 RADIOLOGY CHEST 2 VIEWS FRONTAL&L ATERAL RADIOLOGI 41675 [facility] [place] C EXAM 7 MEDICAL CHEST 2 IMAGING VIEWS ASS FRONTAL&L ATERAL GROUND A0425 [facility] MILEAGE 7 AMBULANCE AMBULANCE PER SERVICE SERVICE STATUTE MILE RADIOLOGI 63902 [facility] P[facility] C EXAM 7 MEDICAL CHEST 2 IMAGING VIEWS ASS FRONTAL&L ATERAL AMB A0427 [facility]Y SERVICE 7 AMBULANCE AMBULANCE ALS SERVICE SERVICE EMERGENCY TRANSPORT LEVEL 1 RADEX 16993 [facility] [place] SCALF MARILIN RIBS 6 RADIOLOGY UNILATERA L 2 VIEWS COLLECTIO 80993 [facility] N VENOUS 6 [facility] VENIPUNCT URE COMPREHEN 51202 [facility] SIVE 6 [facility] BLOOD 19421 [facility] AUTOMATED PROTHROMB 59313 DILEEP [place] IN TIME 6 [facility] RADEX 11932 [facility] [place] RIBS UNI 6 RADIOLOGY RHO W/POSTERO ANT [place] MINIMUM [address] [place] [address] [facility] [place] ABDOMEN & 6 RADIOLOGY RHO PELVIS W/O CONTRAST MATERIAL RADEX 15893 [facility] RIBS 6 CLARISSA UNILATERA EMERGENCY L 2 VIEWS PHYS RADIOLOGI 51909 [facility] C 6 CLARISSA EXAMINATI EMERGENCY ON CHEST PHYS SINGLE VIEW FRONTAL RADIOLOGI 72947 [facility] [place] C 6 RADIOLOGY RHO EXAMINATI ON CHEST SINGLE VIEW FRONTAL ECG 46297 [facility] ARNOLD ROUTINE 6 CLARISSA LAST ECG EMERGENCY W/LEAST PHYS 12 LDS I&R ONLY ECG 56026 ND DAMIAN LASHAWN ROUTINE 6 MEDICAL ECG SERV W/LEAST FOUNDATIO 12 LDS N I&R ONLY RADIOLOGI 87142 [place] BRENNAN C EXAM 6 MEDICAL MARY KATE CHEST 2 SERV VIEWS FOUNDATIO FRONTAL&L N ATERAL HEMOGLOBI 21045 KMSF JIM N 6 [address]AA PRACTITIO DANE A1C NER GR POLYSOM 76624 LINDA GALLO GALLO LINDA 6/>YRS 6 MD SLEEP 4/> CONSULTIN ADDL G SRV SYBIL ATTND MRI 66812 [place] B[place] JENNIFER ABDOMEN 6 MEDICAL W/O & SERV W/CONTRAS FOUNDATIO T N MATERIAL POLYSOM 86684 MACARIOON MACARIOON 6/>YRS 6 [facility] SLE[facility] 4/> HOSPITAL HOSPITAL ADDL SYBIL ATTND PROTHROMB 20936 DILEEP [place] IN TIME 6 [facility] BLOOD 24078 DILEEP [place] COUNT 6 [facility] AUTOMATED COLLECTIO 34473 DI[facility] N VENOUS 6 [facility] VENIPUNCT URE COMPREHEN 92900 DILEEP FALK SIVE 6 [facility] PANEL ECHO 57698 LINDA GALLO GALLO LINDA TTHRC R-T 6 2D CONSULTIN W/WOM-MOD G SRV E COMPL SPEC&COLR D COMPREHEN [address] SIVE 6 [facility] PANEL COLLECTIO 24231 MANUEL GREEN JAMIE N VENOUS 6 FAMILY BLOOD PHYSICIAN VENIPUNCT S PLLC URE INITIAL 21501 [facility] DIAZ OBSERVATI 6 CLARISSA ISIDRA ON PHYSICIAN CARE/DAY SERVI 30 MINUTES RADIOLOGI 73486 [facility] [place] SHAY C 6 RADIOLOGY III MARY KATE EXAMINATI ON CHEST SINGLE VIEW FRONTAL RADIOLOGI 82909 [facility] SWINEY C 6 CLARISSA PAT EXAMINATI EMERGENCY ON CHEST PHYS SINGLE VIEW FRONTAL ECG 05050 [facility] SWINEY ROUTINE 6 CLARISSA PAT ECG EMERGENCY W/LEAST PHYS 12 LDS I&R ONLY RADIOLOGI 48086 [facility] [place] SCALF MARILIN C EXAM 6 RADIOLOGY CHEST 2 VIEWS FRONTAL&L ATERAL GENERAL 37850 [facility] 6 Y Y PANEL [facility] ANTINUCLE 43525 [facility] AR 6 Y Y ANTIBODIE [facility] S COLLINS HEPATITIS 83565 [facility] B SURF 6 Y Y ANTIBODY [facility] [place] [address] [facility] FERRITIN 6 Y Y [facility] COLLECTIO 82212 [facility] N VENOUS 6 Y Y BLOOD [facility] VENIPUNCT URE COLD 22930 [facility] AGGLUTINI 6 Y Y N [facility] HEPATITIS 62440 [facility] A 6 Y Y ANTIBODY [facility] HAAB BLOOD 52045 [facility] COUNT 6 Y Y RETICULOC [facility] YTES AUTO 1/> [place] [address] [facility] HAPTOGLOB 6 Y Y IN [facility] [place] [address] [facility] GAMMAGLOB 6 Y Y ULIN [facility] IGD IGG IGM EACH LACTATE 93836 [facility] DEHYDROGE 6 Y Y NASE [facility] IMMUNOASS 33369 UNIVERSIT UNIVERSIT AY 6 Y Y [facility]PITAL QUAL/SEMI QUAL MULTIPLE STEP CERULOPLA 43324 [facility] UNIVERSIT SMIN 6 [place] [address] [facility] FOLIC 6 Y Y ACID RBC [facility] [place] [address] [facility] IRON 6 [place] [address] [facility] UNIVERS FREE 6 Y Y THYROXINE [facility] [place] [address] [facility] [place] SCALF MARILIN ABDOMEN & 5 RADIOLOGY PELVIS W/CONTRAS T MATERIAL ANES 34930 [place] [facility] RAY UPPER GI 5 ANESTHESI ENDOSCOPY A GROUP PROXIMAL PS TO DUODENUM ESOPHAGOG 54458 DAYNA TURNER ASTRODUOD [address] [place] [address] ENOSCOPY PHYSICIAN [place] [address] [facility] FALK AMYLASE [address] [place] [address] GLUC BLD 47832 [facility] GLUC MNTR [address] [place] [address] [place] [address] [facility] FALK LIPASE [address] [place] [address] URNLS DIP 66523 [facility] [address]ALO[address] [facility] H[facility]PITAL LET REAGENT AUTO MICROSCOP Y HI OSM Q9963 DILEEP FALK CONTRST [address] [place] [address] [phone] MG/ML IODINE CONC ML IAADIADOO 49561 DILEEP FALK [address] [place] [address] HOSPITAL BLOOD 28046 DILEEP FALK COUNT [address] [place] [address] AUTO&AUTO DIFRNTL WBC ONDANSETR Q0162 DILEEP FALK ON [address] [place] [address] OR NOT HOSPITAL HOSPITAL EXCEED 48 HR DOSE REG RADEX 60832 DILEEP FALK SPINE [address] [place] [address] [facility] [place] [address] DILEEP FALK ABDOMEN & 5 [facility] PELVIS [facility] W/O CONTRAST MATERIAL RADIOLOGI 89725 MACARIOJOCELYNN MACARIOJOCELYNN C [address] [place] [address] [facility] CHEST SINGLE VIEW FRONTAL COMPREHEN 09784 DILEEP FALK SIVE 5 [facility]PITAL PANEL COLLECTIO 43672 DILEEP FALK N VENOUS 5 [facility]PITAL VENIPUNCT URE COLLECTIO 79436 [facility] FALK N VENOUS 5 [facility] HOSPITAL VENIPUNCT URE COMPREHEN 01721 DILEEP REMYE 5 [facility]PITAL PANEL BLOOD 29166 DILEEP FALK COUNT 5 [facility] AUTO&AUTO DIFRNTL WBC INJECTION J[address] [facility] TROMETHAM INE PER 15 MG URNLS DIP [address] [facility] HOSPITAL [place] [address] [facility] LIPASE [address] [place] [address] [place] [address] [facility] LIPASE 5 [place] [address] [facility] ABDOMINAL 5 Y Y REAL [facility] HOSPITAL TIME W/IMAGE DOCUMENTA TION BLOOD 03999 [facility] UN[facility] COUNT [address] [facility] AUTO&AUTO DIFRNTL WBC INJECTION J2405 [facility] UNIVERS 5 Y Y [facility] ON HCL PER 1 [place] [address] [facility] LACTATE 5 Y Y HOSPITAL HOSPITAL COMPREHEN 61546 [facility] 5 Y Y [facility] PANEL THER 04676 UNIVERS UNIVERS PROPH/DX 5 Y Y NJX IV HOSPITAL HOSPITAL PUSH SINGLE/1S T SBST/[place] [address] [facility] [place] ABDOMINAL 5 RADIOLOGY RHO REAL TIME W/[place] [address] [facility] ABDOMINAL [address] [place] [address] HOSPITAL TIME W/IMAGE DOCUMENTA TION INJECTION J11[address] HOSPITAL JEANNINE UP TO 4 MG INJECTION J2405 [address] ON HCL PER 1 MG HOSPITAL 04011 [facility] DISCHARGE 5 CLARISSA EDGAR IGN DAY PHYSICIAN MANAGEMEN SERVI T 30 MIN/< SBSQ 27634 [place] 5 CL[place]ISSA HUG CARE/DAY PHYSICIAN 25 SERVI MINUTES SBSQ 72174 [place] 5 CLARISSA HUG CARE/DAY PHYSICIAN 35 SERVI MINUTES INITIAL 02545 [facility] 5 CLARISSA A GOP CARE/DAY PHYSICIAN [address] [place] [address] [facility] [place] WEBBER ABDOMEN & 5 RADIOLOGY RAY PELVIS W/O CONTRAST MATERIAL COLLECTIO 05740 MANUEL GREEN JAMIE N VENOUS 5 FAMILY BLOOD PHYSICIAN VENIPUNCT S PLLC URE COMPREHEN [address] SIVE 5 GROUP GROUP [facility] [employer] [facility] PANEL CYANOCOBA 93264 [address] PATH NAHOMI 5 GROUP GROUP VITAMIN LAB[facility] [employer] [facility] [employer] B-12 BLOOD [address] COUNT 5 GROUP GROUP COMPLETE [facility] [employer] [facility] AUTO&AUTO DIFRNTL WBC HEMOGLOBI [address] N 5 GROUP GROUP GLYCOSYLA LABS [employer] [place] [address] MACARIOJOCELYNN DILEEP LIPASE [address] [place] [address] GLUC BLD 84886 [facility] MACARIOJOCELYNN GLUC MNTR [address] [place] [address] CLEARED FDA SPEC HOME USE COMPREHEN [address] HOSPITAL PANEL COLLECTIO 88376 DILEEP FALK N VENOUS [address] [place] [address] VENIPUNCT URE INITIAL 83220 [facility] OBSERVATI 5 CLARISSA HERNÁNDEZ IGN ON PHYSICIAN CARE/DAY SERVI 70 MINUTES COMPREHEN 03734 [facility] [address] PANEL PRESSURIZ 49887 [facility] MACARIOJOCELYNN ED/NONPRE [address] [place] [address] INHALATIO N TREATMENT GLUC BLD 84213 [facility] FALK GLUC MNTR [address] [place] [address] CLEARED FDA SPEC HOME USE BLOOD 17527 DILEEP GIPSON PET COUNT [address] [place] [address] AUTOMATED IAADIADOO [address] [facility] NATRIURET [address] [facility] IC [address] [place] [address] [place] [address] [facility] LIPASE [address] [place] [address] URNLS DIP [address] [facility] HOSPITAL LET REAGENT AUTO MICROSCOP Y GLUC BLD 17961 [facility] GLUC MNTR [address] [place] [address] HOSPITAL CLEARED FDA SPEC HOME USE CULTURE 25328 [facility] BACTERIAL [address] [place] [address] BLOOD [facility] AEROBIC W/ID ISOLATES IAADIADOO [address] [facility] [place] [address] [facility] AMYLASE [address] [place] [address] HOSPITAL NONINVASI 50331 [facility] VE [address] [place] [address] E[facility]PULSE [facility]PITAL HOSPITAL OXIMETRY SINGLE DETER RADIOLOGI 13456 [facility] [place] C EXAM 5 RADIOLOGY RHO CHEST 2 VIEWS FRONTAL&L ATERAL GENERAL [address] [facility] G0378 [facility] OBSERVATI [address] [place] [address] HOSPITAL HOSPITAL SERVICE PER HOUR HEMOGLOBI 36915 KMSF JOSE ANTONIO LUISA N 4 NURSE PETER VELA A1C NER GR IM ADM 42758 [facility] PR[facility] ID 4 [facility] SUBQ/IM HLTH DEPT HLTH DEPT NJXS EA RESHMA RESHMA VACCINE IM ADM 99438 [facility] PRQ ID 4 [facility] DISTRICT SUBQ/IM HLTH DEPT HLTH DEPT NJXS 1 RESHMA RESHMA VACCINE HEPB 88376 [facility] VACCINE 4 [facility] ADULT 3 HLTH DEPT HLTH DEPT DOSE RESHMA RESHMA SCHEDULE FOR IM USE HEPA 80112 [facility] VACCINE 4 [facility] DISTRICT ADULT HLTH DEPT HLTH DEPT DOSE FOR RESHMA RESHMA INTRAMUSC ULAR USE RADEX 82992 [facility] [place] ABDOMEN 4 RADIOLOGY RHO COMPL W/DCBTS&/ ERC VIEWS DXA BONE 34003 [facility] [place] DENSITY 4 RADIOLOGY RHO STUDY 1/> [place] [address] [facility] [place] ABDOMINAL 4 RADIOLOGY RHO REAL TIME W/IMAGE DOCUMENTA TION COMPRE 64117 [place] [facility] SET AUDIOMETR 4 PHYSICIAN Y PRACTICE THRESHOLD L EVAL SP RECOGNIJ TYMPANOME 38340 [place] [facility] SET TRY 4 PHYSICIAN PRACTICE L HEPATITIS 38544 [facility] Y Y ANTIBODY [facility] HBSAB HEPATITIS [facility]339 [facility] Y Y ANTIBODY [facility] HAAB PROTHROMB 07969 [facility] IN TIME Y Y HOSPITAL HOSPITAL Encounters Encounter Start End Date Code Location Performer Type Date EMERGENCY 12130 [facility] DEPT 7 7 CLARIS[place] VISIT EMERGENCY HIGH PHYS SEVERITY& THREAT FUN EMERGENCY 54616 [facility] 7 7 CLARISSA DEPARTMEN EMERGENCY T VISIT PHYS HIGH/URGE NT SEVERITY EMERGENCY 45389 [facility] DEPT 7 7 MEDICAL VISIT SERV HIGH FOUNDATIO SEVERITY& N THREAT [facility] - 7 7 [facility] OUTPATIEN E T HOSPITALS EMERGENCY 96108 7 7 [facility] DEPARTMEN E T VISIT HOSPITALS HIGH/URGE NT SEVERITY EMERGENCY 45674 [facility] DEPT 7 7 CLARISSA VISIT EMERGENCY HIGH PHYS SEVERITY& THREAT [facility] [place] - 7 7 [facility] [place] [facility] 7 7 [facility] T EMERGENCY 01367 [place] DE[facility] 7 7 [facility]OSPITAL HIGH SEVERITY& THREAT FUN EMERGENCY 13628 [facility] 7 7 MEDICAL VISIT SERV HIGH FOUNDATIO SEVERITY& N THREAT FUNCJ OFFICE 95058 [facility] OUT[facility] 7 7 FAMILY T VISIT PHYSICIAN 15 S PLLC MINUTES EMERGENCY 44872 [facility] 7 7 CLARISSA DEPARTMEN EMERGENCY T VISIT PHYS HIGH/URGE NT SEVERITY [facility]OSPITAL [facility] - 7 7 [facility] INPATIENT E HOSPITALS EMERGENCY 85434 [facility] DE[facility] 7 7 MEDICAL VISIT SERV HIGH FOUNDATIO SEVERITY& N THREAT [facility] EMERGENC[facility] 75242 [facility] 7 7 CLARISSA DEPARTMEN EMERGENCY T VISIT PHYS HIGH/URGE NT SEVERITY EMERGENCY 87994 [facility] 7 7 CLARISSA VISIT EMERGENCY HIGH PHYS SEVERITY& THREAT FUNJ EMERGENCY 69267 [facility] DEPT 7 7 PHYSICIAN U VISIT S, PLLC HIGH SEVERITY& THREAT FUNCJ OFFICE 13685 [facility] 7 7 MEDICAL ION SERV NEW/ESTAB FOUNDATIO PATIENT N 80 MIN EMERGENCY 87110 [facility] 7 7 MEDICAL DEPARTMEN SERV T VISIT FOUNDATIO MODERATE N SEVERITY EMERGENCY 59389 [facility] GEREMI[facility] DEPT 7 7 CLARIS[place] VISIT EMERGENCY HIGH PHYS SEVERITY& THREAT FUNJ EMERGENCY 99725 [facility] 6 6 CLARISSA DEPARTMEN EMERGENCY T VISIT PHYS HIGH/URGE NT SEVERITY EMERGENCY 85108 [facility] 6 6 CLARISSA PAT DEPARTMEN EMERGENCY T VISIT PHYS HIGH/URGE NT SEVERITY [facility] T OFFICE 49714 [facility] 6 6 FAMILY T VISIT PHYSICIAN 15 S PLLC MINUTES EMERGENCY 67808 [facility] MATIAS DEPT 6 6 CL[place]ISSA VISIT EMERGENCY HIGH PHYS SEVERITY& THREAT FUNJ EMERGENCY 46366 [facility] DEPT 6 6 CLARISSA LAST VISIT EMERGENCY HIGH PHYS SEVERITY& THREAT FUNCJ EMERGENCY [address] 6 6 MEDICAL DEPARTMEN SERV T VISIT FOUNDATIO LOW/MODER N SEVERITY OFFICE 72199 KMSAndria FERNANDEZ [facility] 6 6 NURSE REGINALD T VISIT PRACTITIO 25 NER GR MINUTES EMERGENCY 48270 [facility] 6 6 CLARISSA PAT DEPARTMEN EMERGENCY T VISIT PHYS HIGH/URGE NT SEVERITY [facility] 6 [facility] [place] - 6 6 [facility] OFFICE 62881 [facility] 6 6 FOOT & T NEW 30 ANKLE CE MINUTES OFFICE 73281 MANUEL ARNDT JAMIE [facility] 6 6 FAMILY T VISIT PHYSICIAN 15 S PLLC MINUTES EMERGENCY 29597 [facility] DARA INA 6 6 MEDICAL DEPARTMEN SERV T VISIT FOUNDATIO MODERATE N SEVERITY EMERGENCY 25769 [facility] DEPT 6 6 CLARISSA KATHY VISIT EMERGENCY HIGH PHYS SEVERITY& THREAT FUNCJ OFFICE 00781 MANUEL GREEN JAMIE OUTPATIEN 6 6 FAMILY T VISIT PHYSICIAN 25 S PLLC MINUTES EMERGENCY 90184 [facility] DEPT 6 6 CLARISSA PAT VISIT EMERGENCY HIGH PHYS SEVERITY& THREAT FUNCJ EMERGENCY 26158 [facility] DEPT 6 6 CLARISSA KATHY VISIT EMERGENCY HIGH PHYS SEVERITY& THREAT FUNCJ OFFICE 23854 [facility] 6 6 Y OF RTHY JERRY T VISIT [place] 15 HOSPI MINUTES OFFICE 46151 MANUEL ARNDT JAMIE OUTPATIEN 6 6 FAMILY T VISIT PHYSICIAN 15 S PLLC MINUTES EMERGENCY 71146 [facility] 6 6 CLARISSA PAT DEPARTMEN EMERGENCY T VISIT PHYS HIGH/URGE NT SEVERITY HOSPITAL [facility] - 6 6 [facility] T OFFICE 22434 MANUEL AYALA OUTPATIEN 5 5 FAMILY T VISIT PHYSICIAN 15 S PLLC MINUTES OFFICE 25318 MANUEL GREEN JAMIE OUTPATIEN 5 5 FAMILY T VISIT PHYSICIAN 25 S PLLC MINUTES OFFICE 28920 MANUEL AYALA OUTPATIEN 5 5 FAMILY T VISIT PHYSICIAN 15 S PLLC MINUTES EMERGENCY 11211 [facility] DEPT 5 5 CLARISSA COLLINS VISIT EMERGENCY HIGH PHYS SEVERITY& THREAT FUNCJ EMERGENCY 22639 [place] 5 5 [facility] T VISIT HIGH/URGE NT SEVERITY [facility]OSPITAL [place] - 5 5 [facility] T EMERGENCY 81190 [facility] 5 5 CLARISSA - [facility] EMERGENCY PAT T VISIT PHYS HIGH/URGE NT SEVERITY [facility]OSPITAL [place] - 5 5 [facility] T EMERGENCY 05550 [facility] 5 5 [facility] T VISIT HIGH/URGE NT SEVERITY HOSPITAL [facility] - 5 5 [facility] T EMERGENCY 74331 [facility] 5 5 MEDICAL [facility] SERV T VISIT FOUNDATIO MODERATE N SEVERITY [facility]OSPITAL [place] - 5 5 [facility] T OFFICE 52097 MANUEL AYALA OUTPATIEN 5 5 FAMILY T VISIT PHYSICIAN 25 S PLLC MINUTES EMERGENCY 02495 [place] 5 5 [facility] T VISIT MODERATE SEVERITY [facility]OSP[facility] [place] - 5 5 [facility] T EMERGENCY 94839 [facility] 5 5 [facility] T VISIT PHYS HIGH/URGE NT SEVERITY OFFICE 57790 MANUEL AYALA OUTPATIEN 5 5 FAMILY T VISIT PHYSICIAN 15 S PLLC MINUTES [facility] 5 [facility] INPATIENT HOSPITAL EMERGENCY 83353 [facility] DEPT 5 5 CLARISSA COLLINS VISIT EMERGENCY HIGH PHYS SEVERITY& THREAT FUNCJ OFFICE 80353 MANUEL AYALA OUTPATIEN 5 5 FAMILY T VISIT PHYSICIAN 15 S PLLC MINUTES EMERGENCY 31462 [facility] 5 5 CLARISSA [facility] DEPARTMEN EMERGENCY T VISIT PHYS HIGH/URGE NT SEVERITY [facility] 5 [facility] T EMERGENCY 30709 [place] 5 5 [facility] T VISIT MODERATE SEVERITY OFFICE 28282 MANUEL YRIS AYALA OUTPATIEN 5 5 FAMILY T VISIT PHYSICIAN 15 S PLLC MINUTES [facility] 5 5 [facility] T EMERGENCY 40346 [facility] II DEPT 5 5 CLARISSA THO VISIT EMERGENCY HIGH PHYS SEVERITY& THREAT FUNCJ OFFICE 08986 [facility] JOSE ANTONIO MORAN OUTPATIEN 4 4 NURSE T NEW 45 PRACTITIO MINUTES [facility] OFFICE 68424 MANUEL AYALA OUTPATIEN 4 4 FAMILY T VISIT PHYSICIAN 15 S PLLC MINUTES OFFICE 59357 MANUEL AYALA OUTPATIEN 4 4 FAMILY T VISIT PHYSICIAN 25 S PLLC MINUTES EMERGENCY 20580 [facility] MATIAS DEPT 4 4 CLARISSA MUH VISIT EMERGENCY HIGH PHYSI SEVERITY& THREAT FUN HOSP[facility] 4 [facility] OFFICE 44972 [facility] OUTPATI[facility] 4 4 PHYSICIAN LES T VISIT PRACTICE 15 L MINUTES OFFICE 37037 [facility] OUTPATIEN 4 4 MEDICAL BELLA T VISIT SERV 25 FOUNDATIO MINUTES [facility] UNIVERSIT - 4 4 Y [facility] T OFFICE 86556 DILEEP CLARK CONSULTAT 4 4 PHYSICIAN LES ION PRACTICE NEW/ESTAB L PATIENT 40 MIN OFFICE 21405 MANUEL AYALA [facility] 4 4 FAMILY T VISIT PHYSICIAN 15 S PLLC MINUTES
--- OUTSIDE RECORDS SUMMARY | 2017-06-14 12:56 | External Medical Summary Rpt ---
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 Name Role Phone SIMONE CADET, SIMONE CHICHI Unavailable Unavailable ARNOLD, ARNOLD Unavailable Unavailable ARNOLD LAST, ARNOLD Unavailable Unavailable LAST EDUARDO LES, EDUARDO Unavailable Unavailable LES LAYTON, LAYTON Unavailable Unavailable AVALLONE, AVALLONE Unavailable Unavailable BEINEKE, BEINEKE Unavailable Unavailable PULIDO, PULIDO Unavailable Unavailable [facility] Unavailable Unavailable [facility], [facility] PHYSICIAN Unavailable Unavailable PRACTICE L, [place] [facility], [facility] Unavailable Unavailable [facility] Unavailable Unavailable SERVICE, [facility] MICHAEL EDGAR, MICHAEL Unavailable Unavailable [...] [facility] Unavailable Unavailable PHYSICIAN PRA, [facility] PHYSICIAN PR[facility], Unavailable Unavailable [...] Unavailable SERVICES O, [facility] O BAND DIRECTOR, BAND DIRECTOR Unavailable Unavailable SHAY III, SHAY Unavailable Unavailable III SHAY III MARY KATE, Unavailable Unavailable SHAY III MARY KATE [facility] Un[facility] Unavailable GROUP PS, [facility], [facility] MATTHEW, MATTHEW Unavailable Unavailable [facility] Unavailable Unavailable PRACTITIONER GR, [facility] N[facility] PRACTITIONER GR [facility], Unavailable Unavailable [facility] BRANDAN PET, BRANDAN PET Unavailable Unavailable BENSON, BENSON Unavailable Unavailable [facility], Unavailable Unavailable [facility] JESSICA, JESSICA Unavailable Unavailable [place] [...] CONSULTING SRV, LINDA GALLO MD CONSULTING SRV [facility] Unavailable Unavailable EMS, [facility] Unavailable Unavailable EMS[facility] EMS [facility] Unavailable Unavailable PHYSICIANS PLL[facility], [facility] PHYSICIANS [facility], Unavailable Unavailable PLLC, [facility], [facility], [...] [facility] Unavailable Unavailable PHYSICIAN SERVI, [facility] WEBBER, WEBBER Unavailable Unavailable WEBBER RAY, WEBBER Unavailable Unavailable RAY SWINEY PAT, SWINEY Unavailable Unavailable PAT FLORENCIO TER, FLORENCIO TER Unavailable Unavailable [facility] Unavailable Unavailable HOSPITALS, [facility], Unavailable Unavailable [facility] Unavailable [facility], [facility] BRENNAN MARY KATE, BRENNAN Unavailable Unavailable MARY KATE JIM REGINALD, JIM Unavailable Unavailable REGINALD ALANIS, ALANIS Unavailable Unavailable [facility] Unavailable Unavailable DEPT RESHMA, [facility] Unavailable Unavailable [facility], [facility] NICOLAS VALENZUELA Unavailable Unavailable IN[facility] [...] O FAILURE WITHOUT COMA R51 HEADACHE 02-14-2017 [facility] Z794 LONG-TERM 02-14-2017 [place] CURRENT USE [facility] Z7984 LONG-TERM 02-14-2017 [place] USE OF ORAL [facility] HYPOGLYCEMI C DRUGS Z9119 PATIENTS 02-14-2017 [place] NONCOMPLIAN [facility] CE W/OTH HOSPITAL MED TX & REGIMEN D649 ANEMIA 01-31-2017 [facility] UNSPECIFIED SERV [facility] K922 GASTROINTES 01-30-2017 [place] [facility] TINAL SERV HEMORRHAGE [facility]OUND[facility] UNSPECIFIED E1165 TYPE 2 01-29-2017 [facility] DIABETES [facility]ILY MELLITUS PHYSICIANS WITH PLL[place] HYPER[place]YCEM [place] V26091 PAIN IN 01-29-2017 [facility] RIGHT FOOT [facility]ILY [facility] [id number] PAIN IN 01-29-2017 [facility] LEFT FOOT FAMILY [...] AWAITING 01-12-2017 [facility] STATUS [id number] EFFUSION 12-27-2016 [facility] RIGHT ANKLE N EMERGENCY PHYS O68639 EFFUSION 12-27-2016 [facility] LEFT ANKLE N EMERGENCY [...] R490 DYSPHONIA 11-21-2016 [facility] [id number] OTH FORGEN 11-20-2016 [place] [facility] OBJ RESP [...] I2119 ST 11-16-2016 [place] [facility] E[facility] [place] INVOLV [facility] OTH CORONARY ART INF WALL [...] J9811 ATELECTASIS 11-13-2016 [facility] [id number] OTHER 11-13-2016 [place] [facility] POSTPROCEDU SERV RAL [...] UNSPECIFIED FOUNDATION K920 HEMATEMESIS 11-08-2016 AC LOPEZ, [facility] K8020 CALCULUS GB 11-07-2016 [facility] W/O SERV CHOLECYSTIT FOUNDATION IS W/O OBSTRUCTION R188 OTHER 11-07-2016 [facility] ASCITES SERV [facility] Z8719 PERSONAL 11-07-2016 [place] [facility] HISTORY SERV OTHER FOUNDATION DISEASES DIGESTIVE SYSTEM R0602 SHORTNESS 11-06-2016 [facility] R531 WEAKNESS 11-06-2016 AC LOPEZ, [facility] M542 CERVICALGIA 10-21-2016 [facility] M6281 MUSCLE 10-21-2016 [facility] WEAKNESS [facility] EMS R1030 LOWER 10-21-2016 [place] [facility] ABDOMINAL SERV PAIN [facility]OUND[facility] UNSPECIFIED R05 COUGH 10-09-2016 [facility] J189 PNEUMONIA 09-22-2016 [place] UNSPECIFIED MEDICAL ORGANISM IMAGING ASS Z09 ENC F/U 09-22-2016 [place] EXAM AFTR MEDICAL CMPL TX OTH IMAGING ASS THAN MALIG NEOPLSM R509 FEVER 09-19-2016 [place] U[facility]PECIFIED [facility]ICAL IMAGING ASS H1133 CONJUNCTIVA 07-28-2016 [facility] HEMORRHAGE PHYS BILATERAL R030 ELEVATED 07-28-2016 [facility] BLOOD-PRESS N EMERGENCY URE READING PHYS WITHOUT DX HTN R0789 OTHER CHEST 07-28-2016 [facility] PAIN N EMERGENCY PHYS [id number] OTHER 07-28-2016 [facility] [place] SPECIFIED RADIOLOGY INJURIES THORAX INITIAL ENC H1032 UNSPECIFIED 07-24-2016 [facility] CONJUNCTIVI PHYSICIANS TIS LEFT [facility] EYE H1132 CONJUNCTIVA 07-22-2016 [facility] L N EMERGENCY HEMORRHAGE PHYS LEFT EYE M670GET CONTUSION 07-22-2016 [facility] [...] SERV ELSEWHERE FOUNDATION CLASSIFIED G479 SLEEP 06-03-2016 [facility] R0683 SNORING 06-03-2016 [facility] R5383 OTHER 06-03-2016 [facility] H13781 PAIN IN 05-20-2016 [place] UNSPECIFIED FOOT & LIMB ANKLE CE R072 PRECORDIAL 05-16-2016 LINDA JOSHI MD CONSULTING SRV G4733 OBSTRUCTIVE 05-02-2016 [facility] SLEEP [facility]ILY [facility] PEDIATRIC PLL [id number] TOX EFF OTH 04-08-2016 [facility] GASES N EMERGENCY FUMES & PHYS VAPORS ACC INITIAL ENC M545 LOW BACK 03-04-2016 [facility] PAIN FAMILY PHYSICIANS PLL R112 NAUSEA WITH 03-04-2016 [facility] UNSPECIFIED R1033 PERIUMBILIC 02-28-2016 [facility] AL PAIN N EMERGENCY PHYS R5381 OTHER 01-29-2016 [facility] MALAISE N EMERGENCY PHYS R17 UNSPECIFIED 01-26-2016 [facility] HOSPI L0390 CELLULITIS 01-08-2016 [facility] UNSPECIFIED FAMILY PHYSICIANS PLLC M546 PAIN IN 11-10-2015 [facility] THORACIC N EMERGENCY SPINE PHYS X12771 MUSCLE 11-10-2015 [facility] SPASM OF N EMERGENCY BACK PHYS K6389 OTHER 09-05-2015 [facility] [place] SPECIFIED RADIOLOGY DISEASES OF INTESTINE B370 CANDIDAL 08-15-2015 [facility] STOMATITIS FAMILY PHYSICIANS PLL K222 ESOPHAGEAL 07-26-2015 [facility] OBSTRUCTION REGIONAL PHYSICIAN PRA K319 DISEASE OF 07-26-2015 [facility] DUODENUM GROUP PS UNSPECIFIED K449 DIAPHRAGMAT 07-26-2015 [place] [facility] HERNIA ANESTHESIA W/O GROUP PS OBSTRUCTION OR GANGRENE 4660 ACUTE 06-07-2015 [facility] BRONCHITIS [facility] 25339 ABDOMINAL 06-07-2015 [facility] PAIN, FAMILY GENERALIZED PHYSICIANS PLLC 7242 LUMBAGO 06-01-2015 [facility] 7862 COUGH 06-01-2015 [facility] [place] [facility] 80461 ABDOMINAL 06-01-2015 [facility] [place] PAIN RIGHT RADIOLOGY LOWER QUADRANT 01544 DIAB W/O 05-31-2015 [facility] COMP TYPE N EMERGENCY II/UNS NOT PHYS STATED UNCNTRL 4019 UNSPECIFIED 05-31-2015 [place] [facility] N 4549 ASYMPTOMATI 05-31-2015 [place] C VARICOSE [facility] 5715 CIRRHOSIS 05-31-2015 [facility] MENTION OF ALCOHOL 88315 OSTEOARTHRO 05-31-2015 [place] S UNSPEC COMMUNITY WHETHER HOSPITAL GEN/LOC UNSPEC SITE 7213 LUMBOSACRAL 05-31-2015 [facility] N EMERGENCY SPONDYLOSIS PHYS WITHOUT MYELOPATHY 13063 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 [facility] 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 76046 OTHER 05-31-2015 [place] ASCITES [facility] V5867 LONG-TERM 05-31-2015 [place] [facility] V5869 LONG-TERM 05-31-2015 [place] (CURRENT) [facility] USE OF HOSPITAL OTHER MEDICATIONS 43479 NAUSEA WITH 05-26-2015 [place] VOMITING [facility] 13966 ABDOMINAL 05-26-2015 [facility] PAIN RIGHT N EMERGENCY UPPER PHYS QUADRANT 85948 ABDOMINAL 05-26-2015 [facility] PAIN, LEFT N EMERGENCY LOWER PHYS QUADRANT 06163 ABDOMINAL 05-26-2015 [facility] PAIN, N EMERGENCY EPIGASTRIC PHYS V145 PERSONAL 05-26-2015 [place] HISTORY OF COMMUNITY ALLERGY TO HOSPITAL NARCOTIC AGENT 30367 ABDOMINAL 05-04-2015 [facility] UNSPECIFIED SITE 5718 OTHER 04-12-2015 [place] CHRONIC [facility] C LIVER DISEASE 88658 UNSPEC 04-12-2015 [facility] INJURY LIVR N EMERGENCY W/O PHYS MENTION OPN WOUND IN CAV 06059 DIAB W/O 03-27-2015 [facility] MENTION FAMILY COMP TYPE PHYSICIANS II/UNS TYPE PLLC UNCNTRL 79530 DIVERTICULI 03-27-2015 [facility] TIS OF FAMILY COLON PHYSICIANS PLLC 5589 OTH&UNSPEC 03-20-2015 [facility] NONINFECTIO N PHYSICIAN US SERVI GASTROENTER ITIS&COLITI S 5723 PORTAL 03-16-2015 [facility] [place] HYPERTENSIO RADIOLOGY N 42952 ABDOMINAL 03-16-2015 [facility] PAIN, N EMERGENCY PERIUMBILIC PHYS V146 PERSONAL 03-16-2015 [place] HISTORY OF COMMUNITY ALLERGY TO HOSPITAL ANALGESIC AGENT 5289 OTHER&UNSPE 02-14-2015 [facility] CIFIED N EMERGENCY DISEASES PHYS THE ORAL SOFT TISSUES 5290 GLOSSITIS 02-14-2015 [facility] N EMERGENCY PHYS 2382 NEOPLASM OF 01-24-2015 [facility] UNCERTAIN FAMILY BEHAVIOR OF PHYSICIANS SKIN PLLC 4871 INFLUENZA 10-31-2014 [facility] WITH OTHER N PHYSICIAN RESPIRATORY SERVI MANIFESTATI ONS 01648 FEVER 10-31-2014 [facility] UNSPECIFIED N PHYSICIAN SERVI 486 PNEUMONIA, 10-30-2014 [facility] ORGANISM N EMERGENCY UNSPECIFIED PHYS 18312 OBESITY, 08-24-2014 [facility] NURSE UNSPECIFIED PRACTITIONE R GR V069 NEED PROPH 07-28-2014 [facility] DE[facility] COMB RESHMA VACCINE 15280 DISORDER OF 07-05-2014 [facility] [place] BONE AND RADIOLOGY CARTILAGE UNSPECIFIED 7948 NONSPECIFIC 07-05-2014 [facility] [place] ABNORMAL RADIOLOGY RESULTS LIVR FUNCTION STUDY 23507 DYSFUNCTION 06-29-2014 [place] OF PHYSICIAN EUSTACHIAN PRACTICE L TUBE 58946 SUBJECTIVE 06-29-2014 [place] TINNITUS PHYSICIAN PRACTICE L 82241 SENSORINEUR 06-29-2014 [place] AL HEARING PHYSICIAN LOSS [...] PH AR MA CY #3 01 6 ND 65 08 09 12 2 00 KE [...] ve G 79 20 20 04 [place] 75 17 17 96 X 9 17 [...] 80 2- 1- 00 01 UC ve [place] 21 20 20 03 [place] DE 61 [...] 20 5- 4- 00 01 UC ve [place] 76 20 20 02 [place] N 01 [...] 80 9- 8- 00 01 UC ve [place] 21 20 20 03 [place] DE 61 [...] OR 20 9- 1- 01 [facility] ve [place] 76 20 20 02 [place] N 01 [...] 20 3- 3- 00 01 UC ve [place] 76 20 20 02 [place] N 01 [...] ve G 79 20 20 97 [place] 75 17 17 10 X 9 96 CV 75 S -2 PH 5 AR KW MA IK CY PE N LL C, DB A CV S PH AR MA CY #3 01 6 FU 00 05 06 30 30 00 KE Ac RO 37 -2 -2 .0 00 NT ti SE 80 4- 3- 00 01 UC ve [place] 21 20 20 03 [place] DE 61 [...] PH AR MA CY #3 01 6 [place] 57 05 06 30 30 00 KE [...] PH AR MA CY #3 01 6 [place] 57 04 05 30 30 00 KE [...] 20 3- 2- 00 00 UC ve [place] 76 20 20 99 [place] N 01 [...] ve G 79 20 20 97 [place] 75 17 17 10 X 9 96 [...] PH AR MA CY #3 01 6 [place] 57 03 04 30 30 00 KE [...] 20 7- 7- 00 00 UC ve [place] 76 20 20 99 [place] N 01 [...] SE 44 7- 7- 26 [place] ve [place] 29 20 20 25 [place] DE 93 [...] 80 1- 0- 00 00 UC ve [place] 20 20 20 97 [place] DE 81 [...] 00 KY RA 30 17 17 11 KY 5 65 CV DE S PH 10 AR MA MG CY TA LL BL C, ET DB A CV S PH AR MA CY #3 01 6 [place] 57 02 02 30 30 00 KE [...] 80 1- 0- 00 00 UC ve [place] 20 20 20 97 [place] DE 81 17 17 66 0 62 CV 20 S PH MG AR MA TA CY BL ET LL C, DB A CV S PH AR MA CY #3 01 6 ME 68 01 02 60 30 00 KE Ac TF 38 -1 -1 .0 00 NT ti OR 20 0- 0- 00 00 UC ve [place] 76 20 20 99 [place] N 01 [...] ve G 79 20 20 97 [place] 75 16 17 10 X 9 96 [...] Procedure DOS Code Location Performer Comment RADEX 73321 [place] ABDOMEN 1 7 MEDICAL SERV ANTEROPOS FOUNDATIO TERIOR N VIEW BLOOD 85675 [place] MATTHEW SMEAR 7 MEDICAL PERIPHERA SERV L INTERP FOUNDATIO PHYS N W/WRIT REPORT INITIAL [address] [place] [address] [facility] CARE/DAY PHYSICIAN DECALVO 70 SERVI MINUTES COMPREHEN 12199 [place] [facility] SIVE 7 HEALTHCAR HEALTHCAR METABOLIC E E PANEL [facility] THERAPEUT 36049 [place] [facility] IC 7 HEALTHCAR HEALTHCAR PROPHYLAC E E TIC/DX [facility] INJECTION SUBQ/IM ONDANSETR Q0162 [facility] ON 1 MG 7 HEALTHCAR HEALTHCAR ORL NOT E E EXCEED 48 [facility] [place] [place] [address] [facility] LIPASE 7 HEALTHCAR HEALTHCAR E E [facility] BLOOD 93289 [place] COUNT 7 HEALTHCAR HEALTHCAR COMPLETE E E AUTOMATED [facility] URNLS DIP 90279 [place] 7 HEALTHCAR HEALTHCAR STICK/TAB E E LET RGNT [facility] AUTO W/O MICROSCOP Y FOR DIAB A5513 [facility]ENTRAL ONLY MX 7 BRACE BRACE DNSITY PROSTH PROSTH INSRT INC INC CSTM MOLD CSTM EA DIAB ONLY A5500 [facility] FIT CSTM 7 [facility]ACE BRACE PREP&SPL PROSTH PROSTH SHOE MX INC INC DNSITY INSRT OBSERVATI 81551 [facility] ON/INPATI 7 MEDICINE EDGAR [facility] O C[place] [address] [place] [address] [facility] BENSON DAY ABDOMEN & 7 RADIOLOGY III PELVIS W/O CONTRAST MATERIAL COMPREHEN [address] [facility] PANEL PROTHROMB 76308 DILEEP FALK IN TIME 7 [facility] BLOOD 73144 DILEEP FALK COUNT [address] [place] [address] [place] [address] DILEEP FALK AMMONIA [address] [place] [address] HOSPITAL PROTHROMB 37602 DILEEP SORTOON IN TIME 7 [facility] GLUC BLD 63804 DILEEP SORTOON GLUC MNTR 7 [facility] CLEARED FDA SPEC HOME USE OBSERVATI 63483 [facility] ON CARE 7 MEDICINE DISCHARGE SERVICES O MANAGEMEN T COMPREHEN [address] [facility] PANEL GLUC BLD 38761 DILEEP FALK GLUC MNTR 7 [facility] CLEARED FDA SPEC HOME USE THROMBOPL 74737 DILEEP FALK ASTIN [address] [place] [address] HOSPITAL PARTIAL PLASMA/WH OLE BLOOD PROTHROMB 32128 DILEEP FALK IN TIME 7 [facility] BLOOD [address] HOSPITAL AUTO&[place] [address] DILEEP FALK AMMONIA [address] [place] [address] [place] [address] DILEEP FALK AMMONIA [address] [place] [address] HOSPITAL BLOOD 33462 [facility] COUNT [address] [place] [address] HOSPITAL AUTO&AUTO DIFRNTL WBC PROTHROMB 24496 DILEEP FALK IN TIME 7 [facility] [place] [address] DILEEP FALK LIPASE [address] [place] [address] HOSPITAL URNLS DIP [address] [place] [address] STICK/TAB HOSPITAL HOSPITAL LET REAGENT AUTO MICROSCOP Y COMPREHEN [address]LE[address] [facility] PANEL INITIAL 18640 [facility] OBSERVATI 7 MEDICINE ON SERVICES CARE/DAY O 70 MINUTES BLD BANK 34772 [facility] VALENZUELA PHYS SVCS 7 MEDICAL DIFFC SERV CROSS FOUNDATIO MATCH&/EV N AL REP ESOPHAGOG 22356 [place] SUZAN KEMPLILIAND 7 MEDICAL ENOSCOPY SERV TRANSORAL FOUNDATIO N DIAGNOSTI C ANES 38383 [place] UPPER GI 7 MEDICAL ENDOSCOPY SERVICES PROXIMAL TO DUODENUM INITIAL 90217 [facility] 7 CLARISSA ADRIAN CARE/DAY PHYSICIAN DECALVO 70 SERVI MINUTES BLD BANK 61770 [place] NICOLAS PHYS SVCS 7 MEDICAL DIFFC SERV CROSS FOUNDATIO MATCH&/EV N AL REP BLOOD 25468 [facility] COUNT [address] [place] [address] AUTOMATED COMPREHEN 46873 [facility] SIVE [address] [place] [address] PANEL RADIOLOGI 67039 [facility] [place] OLGA C EXAM 7 RADIOLOGY CHEST 2 VIEWS FRONTAL&L ATERAL DUP-SCAN 15489 [place] ROBERTH ARTL TIMOTHY 7 MEDICAL ABDL/PEL/ SERV SCROT&/RP FOUNDATIO R ORGN N COM RADIOLOGI 25085 [place] MERHAR C EXAM 7 MEDICAL CHEST 2 SERV VIEWS FOUNDATIO FRONTAL&L N ATERAL ECG 55993 [place] NIESHA ROUTINE 7 MEDICAL ECG SERV W/LEAST FOUNDATIO 12 LDS N I&R ONLY DUP-SCAN 76050 [place] WEBBER ARTL TIMOTHY 7 MEDICAL ABDL/PEL/ SERV SCROT&/RP FOUNDATIO R ORGN N [facility] 97477 [place] AVALLONE DISCHARGE 7 MEDICAL DAY SERV MANAGEMEN FOUNDATIO T > 30 N MIN SBSQ 43662 [place] [facility] 7 MEDICAL CARE/DAY SERV 35 FOUNDATIO MINUTES N SWALLOWIN 92194 [place] DL BYNUMCJ 7 MEDICAL W/CINERAD SERV IOGRAPY/V FOUNDATIO IDRADIOG N SBSQ [address] [place] [address] MEDICAL CARE/DAY SERV 25 FOUNDATIO MINUTES N SBSQ [address]6839 [place] [address] MEDICAL CARE/DAY SERV 25 FOUNDATIO MINUTES N RADIOLOGI 47263 [place] LAYLA C 7 MEDICAL AYA EXAMINATI SERV ON CHEST FOUNDATIO SINGLE N VIEW FRONTAL ECG 75291 [place] BENSON ROUTINE 7 MEDICAL ECG SERV W/LEAST FOUNDATIO 12 LDS N I&R ONLY RADIOLOGI 41661 [place] LAANIS C 7 MEDICAL EXAMINATI SERV ON CHEST FOUNDATIO SINGLE N VIEW FRONTAL RADIOLOGI 11886 [place] ALANIS C 7 MEDICAL EXAMINATI SERV ON CHEST FOUNDATIO SINGLE N VIEW FRONTAL CRITICAL 90765 [place] ALONDRA CARE 7 MEDICAL ILL/INJUR SERV ED FOUNDATIO PATIENT N INIT 30-74 MIN ECG 14837 [place] DAMIAN ROUTINE 7 MEDICAL ECG SERV W/LEAST FOUNDATIO 12 LDS N I&R ONLY CRITICAL 82285 [place] ALONDRA CARE 7 MEDICAL ILL/INJUR SERV ED FOUNDATIO PATIENT N INIT 30-74 MIN RADIOLOGI 66547 [place] TREVON C 7 MEDICAL EXAMINATI SERV ON CHEST FOUNDATIO SINGLE N VIEW FRONTAL RADIOLOGI 89339 [place] ONEAL C 7 MEDICAL EXAMINATI SERV ON CHEST FOUNDATIO SINGLE N VIEW FRONTAL RADEX 70285 [place] DL ABDOMEN 1 7 MEDICAL SERV ANTEROPOS FOUNDATIO TERIOR N VIEW CRITICAL 19725 [place] ALONDRA CARE 7 MEDICAL ILL/INJUR SERV ED FOUNDATIO PATIENT N INIT 30-74 MIN COLONOSCO 32286 [place] SHEDLOFSK PY FLX DX 7 MEDICAL Y W/COLLJ SERV SPEC WHEN FOUNDATIO PFRMD N ESOPHAGOG 97246 [place] SHEDLOFSK ASTRODUOD 7 MEDICAL Y ENOSCOPY SERV TRANSORAL FOUNDATIO N DIAGNOSTI C CRITICAL 68244 [place] ALONDRA CARE 7 MEDICAL ILL/INJUR SERV ED FOUNDATIO PATIENT N INIT 30-[address] [facility] 7 NURSE CARE/DAY PRACTITIO 25 NER GR MINUTES DUP-SCAN 89839 [place] JESSICA ARTL TIMOTHY 7 MEDICAL ABDL/PEL/ SERV SCROT&/RP FOUNDATIO R ORGN N COM RADEX 79697 [place] DL ABDOMEN 1 7 MEDICAL SERV ANTEROPOS FOUNDATIO TERIOR N VIEW RADIOLOGI 65858 [place] TREVON C 7 MEDICAL EXAMINATI SERV ON CHEST FOUNDATIO SINGLE N VIEW FRONTAL RADIOLOGI 68219 [place] INDU C 7 MEDICAL EXAMINATI SERV ON CHEST FOUNDATIO SINGLE N VIEW FRONTAL CRITICAL 54456 [place] ALONDRA CARE 7 MEDICAL ILL/INJUR SERV ED FOUNDATIO PATIENT N INIT 30-74 MIN CRITICAL 69802 [place] ALONDRA CARE 7 MEDICAL ILL/INJUR SERV ED FOUNDATIO PATIENT N INIT 30-74 MIN ECG 21562 [place] BENSON ROUTINE 7 MEDICAL ECG SERV W/LEAST FOUNDATIO 12 LDS N I&R ONLY RADIOLOGI 66445 [place] ONEAL C 7 MEDICAL EXAMINATI SERV ON CHEST FOUNDATIO SINGLE N VIEW FRONTAL SBSQ 52159 [facility] 7 NURSE CARE/DAY PRACTITIO 35 NER GR MINUTES RADIOLOGI 88751 [place] RONAN C 7 MEDICAL EXAMINATI SERV ON CHEST FOUNDATIO SINGLE N VIEW FRONTAL RADEX 83721 [place] JESSICA ABDOMEN 1 7 MEDICAL SERV ANTEROPOS FOUNDATIO TERIOR N VIEW RADIOLOGI 28777 [place] RONAN C 7 MEDICAL EXAMINATI SERV ON CHEST FOUNDATIO SINGLE N VIEW FRONTAL RADIOLOGI 20708 [place] WYNNE C 7 MEDICAL MONA EXAMINATI SERV ON CHEST FOUNDATIO SINGLE N VIEW FRONTAL INITIAL 70380 [facility] INPATIENT 7 NURSE CONSULT PRACTITIO NEW/ESTAB NER GR PT 80 MIN SERVICES 24393 [facility] PROVIDED 7 PHYSICIAN U BTW 10 S, PLLC PM&8 AM AT 24-HR FACI AMB A0427 [facility]ICE 7 AMBULANCE AMBULANCE ALS SERVICE SERVICE EMERGENCY TRANSPORT LEVEL 1 BLD BANK 23596 [facility] 7 MEDICAL AUTHJ SERV DEVIJ FOUNDATIO STANDARD N REPRT ECG 33715 [place] BEN[place] ROUTINE 7 MEDICAL ECG SERV W/LEAST FOUNDATIO 12 LDS N I&R ONLY GROUND A0425 [facility] MILEAGE 7 AMBULANCE AMBULANCE PER SERVICE SERVICE STATUTE MILE GROUND A0425 [facility] MILEAGE 7 AMBULANCE AMBULANCE PER SERVICE SERVICE STATUTE MILE AMB A0427 [facility] 7 AMBULANCE AMBULANCE ALS SERVICE SERVICE EMERGENCY TRANSPORT LEVEL [address] [facility] CARE 7 PHYSICIAN U ILL/INJUR S, PLLC ED PATIENT INIT 30-74 MIN GROUND A0425 [facility] MILEAGE 7 AMBULANCE AMBULANCE PER SERVICE SERVICE STATUTE MILE AMBULANCE A0429 [facility] SERVICE 7 AMBULANCE AMBULANCE BLS SERVICE SERVICE EMERGENCY TRANSPORT RADIOLOGI 82172 [place] [facility] C EXAM 7 MEDICAL CHEST 2 IMAGING VIEWS ASS FRONTAL&L ATERAL SERVICES 75879 [facility] PROVIDED 7 PHYSICIAN U BTW 10 S, PLLC PM&8 AM AT 24-HR FACI GROUND A0425 [facility] MILEAGE 7 [facility] PER [facility] STATUTE EMS EMS MILE OBSERVATI 14149 [facility] ON CARE 7 MEDICINE A DISCHARGE SERVICES O MANAGEMEN T INITIAL 72206 [facility] OBSERVATI 7 MEDICINE A ON SERVICES CARE/DAY O 70 MINUTES RADIOLOGI 79119 [facility] [place] C EXAM 7 RADIOLOGY CHEST 2 VIEWS FRONTAL&L ATERAL [facility]OLOGI 24238 [facility] 7 MEDICAL CHEST 2 IMAGING VIEWS ASS FRONTAL&L ATERAL GROUND A0425 [facility] MILEAGE 7 AMBULANCE AMBULANCE PER SERVICE SERVICE STATUTE MILE RADIOLOGI 02511 [facility] 7 MEDICAL CHEST 2 IMAGING VIEWS ASS FRONTAL&L ATERAL AMB A0427 [facility] SERVICE 7 AMBULANCE AMBULANCE ALS SERVICE SERVICE EMERGENCY TRANSPORT LEVEL 1 RADEX 62767 [facility] [place] RIBS 6 RADIOLOGY UNILATERA L 2 VIEWS COLLECTIO 42898 [facility] N VENOUS 6 [facility] VENIPUNCT URE COMPREHEN 43109 [facility] SIVE [address] [facility] PANEL BLOOD 05552 [facility] AUT[facility] PROTHROMB 03745 DILEEP S[place]TOON IN TIME 6 [facility] RADEX 97486 [facility] [place] RIBS UNI 6 RADIOLOGY RHO W/POSTERO ANT [place] MINIM[place] [address] [place] [address] [facility] [place] ABDOMEN & 6 RADIOLOGY RHO PELVIS W/O CONTRAST MATERIAL RADEX 50617 [facility] 6 [facility] UN[place]ATERA EMERGENCY L 2 VIEWS PHYS RADIOLOGI 14141 [facility] C 6 [place] EXAMINATI EMERGENCY ON CHEST PHYS [place] FRONTAL RADIOLOGI 38602 [facility] [place] C 6 RADIOLOGY RHO EXAMINATI ON CHEST SING[place] FRONTAL ECG 01457 [facility] ARNOLD ROUTINE 6 CL[place]ISSA LAST ECG EMERGENCY W/LEAST PHYS 12 LDS I&R ONLY ECG 03940 [facility] LASHAWN ROUTINE 6 MEDICAL ECG SERV W/LEAST FOUNDATIO 12 LDS N I&R ONLY RADIOLOGI 79687 [place] C EXAM 6 MEDICAL MARY [place] CHEST 2 SERV VIEWS FOUNDATIO FRONTAL&L N ATERAL HEMOGLOBI 54190 [facility] JIM N [address] RE[address] A1C NER GR POLYSOM 85934 LINDA GALLO GALLO LINDA 6/>YRS 6 MD SLEEP 4/> CONSULTIN ADDL G SRV SYBIL ATTND MRI 77845 [place] JENNIFER ABDOMEN 6 MEDICAL W/O & SERV W/CONTRAS FOUNDATIO T N MATERIAL POLYSOM 91165 MACARIO[facility] MACARIOON 6/>YRS 6 [facility] SLEEP 4/> [facility] ADDL SYBIL ATTND PROTHROMB 90245 DILEEP S[place]TOON IN TIME 6 [facility] BLOOD 77716 [facility] COUNT [facility] COL[facility] 89018 DILEEP [place] N VENOUS 6 [facility] VENIPUNCT URE COMPREHEN [address] F[address] SIVE [address] [facility] PANEL ECHO 35803 LINDA GALLO GALLO LINDA TTHRC R-T 6 2D CONSULTIN W/WOM-MOD G SRV E COMPL SPEC&COLR D COMPREHEN 86732 PATH PATH SIVE 6 GROUP [facility] PANEL COLLECTIO 02452 MANUEL GREEN JAMIE N VENOUS 6 FAMILY BLOOD PHYSICIAN VENIPUNCT S PLLC URE INITIAL 90321 [facility] DIAZ OBSERVATI 6 CLARISSA ISIDRA ON PHYSICIAN CARE/DAY SERVI 30 MINUTES RADIOLOGI 92324 [facility] [place] SHAY C 6 RADIOLOGY III MARY KATE EXAMINATI ON CHEST SINGLE VIEW FRONTAL RADIOLOGI 65074 [facility] SWINEY C 6 CLARISSA PAT EXAMINATI EMERGENCY ON CHEST PHYS SINGLE VIEW FRONTAL ECG 47317 [facility] SWINEY ROUTINE 6 CLARISSA PAT ECG EMERGENCY W/LEAST PHYS 12 LDS I&R ONLY RADIOLOGI 35528 [facility] [place] SCALF MARILIN C EXAM 6 RADIOLOGY CHEST 2 VIEWS FRONTAL&L ATERAL GENERAL 21696 [facility] 6 Y Y PANEL [facility] ANTINUCLE 38357 [facility] AR 6 Y Y ANTIBODIE [facility] S COLLINS HEPATITIS 72423 [facility] B SURF 6 Y Y ANTIBODY [facility] [place] [address] [facility] FERRITIN 6 Y Y [facility] COLLECTIO 66129 [facility] N VENOUS 6 Y Y BLOOD [facility] VENIPUNCT URE COLD 57218 [facility] AGGLUTINI 6 Y Y N TITER HOSPITAL [facility] HEPATITIS 38317 [facility] A 6 Y Y ANTIBODY [facility] HAAB BLOOD 19614 [facility] COUNT 6 Y Y RETICULOC [facility] YTES AUTO 1/> [place] [address] [facility] HAPTOGLOB 6 Y Y IN [facility] [place] [address] [facility] GAMMAGLOB 6 Y Y ULIN [facility] IGD IGG IGM EACH LACTATE 16023 [facility] DEHYDROGE 6 Y Y NASE [facility] IMMUNOASS 72598 [facility] AY 6 Y [facility] QUAL/SEMI QUAL MULTIPLE STEP CERULOPLA 75607 [facility] UNIVERSIT SMIN 6 [place] [address] [facility] FOLIC 6 Y Y ACID RBC [facility] [place] [address] [facility] IRON 6 [place] [address] [facility] UNIVERS FREE 6 Y Y THYROXINE [facility] [place] [address] [facility] [place] SCALF MARILIN ABDOMEN & 5 RADIOLOGY PELVIS W/CONTRAS T MATERIAL ANES 03682 [place] DEPA RAY UPPER GI 5 ANESTHESI ENDOSCOPY A GROUP PROXIMAL PS TO DUODENUM ESOPHAGOG 19074 DAYNA TURNER ASTRODUOD [address] [place] [address] ENOSCOPY PHYSICIAN [place] [address] [facility] FALK AMYLASE [address] [place] [address] GLUC BLD 50441 [facility] GLUC MNTR [address] [place] [address] [place] [address] [facility] FALK LIPASE [address] [place] [address] URNLS DIP 21357 [facility] [address] [facility] HOSPITAL LET REAGENT AUTO MICROSCOP Y HI OSM Q9963 DILEEP FALK CONTRST [address] [place] [address] [phone] MG/ML IODINE CONC ML IAADIADOO 06968 DILEEP FALK [address] [place] [address] HOSPITAL BLOOD 13223 DILEEP FALK COUNT [address] [place] [address] AUTO&AUTO DIFRNTL WBC ONDANSETR Q0162 DILEEP FALK ON [address] [place] [address] OR NOT HOSPITAL HOSPITAL EXCEED 48 HR DOSE REG RADEX 68649 DILEEP FALK SPINE [address] [place] [address] [facility] AL 2/[address] [place] [address] DILEEP FALK ABDOMEN & 5 [facility] PELVIS [facility] HOSPITAL W/O CONTRAST MATERIAL RADIOLOGI 57598 MACARIOJOCELYNN MACARIOJOCELYNN C [address] [place] [address] [facility] ON CHEST SINGLE VIEW FRONTAL COMPREHEN 03431 DILEEP FALK SIVE [address] [facility] HOSPITAL PANEL COLLECTIO 47503 DILEEP FALK N VENOUS [address] [facility] HOSPITAL VENIPUNCT URE COLLECTIO 97739 [facility] F[facility] N VENOUS [address] [facility] HOSPITAL VENIPUNCT URE COMPREHEN 57308 DILEEP REMYE [address] [facility] HOSPITAL PANEL BLOOD 77739 DILEEP FALK COUNT 5 [facility] AUTO&AUTO DIFRNTL WBC INJECTION [id number] K[facility]OL[facility] HOSPITAL TROMETHAM INE PER 15 MG URNLS DIP [address] [facility] HOSPITAL [place] [address] [facility] LIPASE [address] [place] [address] [place] [address] [facility] LIPASE 5 [place] [address] [facility] ABDOMINAL 5 Y Y REAL HOSPITAL HOSPITAL TIME W/IMAGE DOCUMENTA TION BLOOD 59573 [facility] COUNT 5 Y Y [facility] AUTO&AUTO DIFRNTL WBC INJECTION J2405 [facility] 5 Y Y [facility] ON HCL PER 1 [place] [address] [facility] LACTATE 5 Y Y HOSPITAL HOSPITAL COMPREHEN 02715 [facility] 5 Y Y [facility] HOSPITAL PANEL THER 76542 [facility] PROPH/DX 5 Y Y NJX IV HOSPITAL HOSPITAL PUSH SINGLE/1S T SBST/[place] [address] [facility] [place] ABDOMINAL 5 RADIOLOGY RHO REAL TIME W/[place] [address] [facility] ABDOMINAL [address] [place] [address] HOSPITAL TIME W/IMAGE DOCUMENTA TION INJECTION J[address] HOSPITAL JEANNINE UP TO 4 MG INJECTION J2405 [address] ON HCL PER 1 MG HOSPITAL 28663 [facility] DISCHARGE 5 CLARISSA EDGAR IGN DAY PHYSICIAN MANAGEMEN SERVI T 30 MIN/< SBSQ 85950 [facility] 5 CLARISSA HUG CARE/DAY PHYSICIAN 25 SERVI MINUTES SBSQ 46092 [facility] 5 CLARISSA HUG CARE/DAY PHYSICIAN 35 SERVI MINUTES INITIAL 72389 [facility] 5 CLARISSA A GOP CARE/DAY PHYSIC[place] [address] [place] [address] [facility] [place] WEBBER ABDOMEN & 5 RADIOLOGY RAY PELVIS W/O CONTRAST MATERIAL COLLECTIO 55478 MANUEL GREEN JAMIE N VENOUS 5 FAMILY BLOOD PHYSICIAN VENIPUNCT S PLLC URE COMPREHEN [address] SIVE 5 [facility] PANEL CYANOCOBA [address] NAHOMI 5 GROUP GROUP VITAMIN LABS [facility] B-12 BLOOD 25583 [address] PATH COUNT 5 GROUP GROUP COMPLETE [facility] AUTO&AUTO DIFRNTL WBC HEMOGLOBI 75289 [address] N 5 GROUP GROUP GLYCOSYLA LABS [facility] [place] [address] MACARIOJOCELYNN DILEEP LIPASE [address] [place] [address] GLUC BLD 40636 [facility] MACARIOJOCELYNN GLUC MNTR [address] [place] [address] CLEARED FDA SPEC HOME USE COMPREHEN [address] HOSPITAL PANEL COLLECTIO 58276 DILEEP FALK N VENOUS [address] [place] [address] VENIPUNCT URE INITIAL 53495 [facility] OBSERVATI 5 CLARISSA HERNÁNDEZ IGN ON PHYSICIAN CARE/DAY SERVI 70 MINUTES COMPREHEN 76313 [facility] [address] PANEL PRESSURIZ 82048 [facility] MACARIOJOCELYNN ED/NONPRE [address] [place] [address] INHALATIO N TREATMENT GLUC BLD 31409 [facility] FALK GLUC MNTR [address] [place] [address] CLEARED FDA SPEC HOME USE BLOOD 20452 DILEEP GIPSON PET COUNT [address] [place] [address] AUTOMATED IAADIADOO [address] [facility] NATRIURET [address] [facility] IC [address] [place] [address] [place] [address] [facility] LIPASE [address] [place] [address] URNLS DIP [address] [facility] HOSPITAL LET REAGENT AUTO MICROSCOP Y GLUC BLD 05120 [facility] GLUC MNTR [address] [place] [address] HOSPITAL CLEARED FDA SPEC HOME USE CULTURE 07155 [facility] BACTERIAL [address] [place] [address] BLOOD [facility] HOSPITAL AEROBIC W/ID ISOLATES IAADIADOO [address] [facility] [place] [address] [facility] AMYLASE [address] [place] [address] HOSPITAL NONINVASI 97830 [facility] VE [address] [place] [address] EAR[facility]PULSE HOSPITAL HOSPITAL OXIMETRY SINGLE DETER RADIOLOGI 37393 [facility] [place] C EXAM 5 RADIOLOGY RHO CHEST 2 VIEWS FRONTAL&L ATERAL GENERAL [address] HOSPITAL G0378 [facility] OBSERVATI [address] [place] [address] HOSPITAL HOSPITAL SERVICE PER HOUR HEMOGLOBI 82012 [facility] JOSE ANTONIO LUISA N 4 NURSE PETER VELA A1C NER GR IM ADM 99636 [facility] PR[facility] ID 4 [facility] SUBQ/IM HLTH DEPT HLTH DEPT NJXS EA RESHMA RESHMA VACCINE IM ADM 68201 [facility] PRQ ID 4 [facility] SUBQ/IM HLTH DEPT HLTH DEPT NJXS 1 RESHMA RESHMA VACCINE HEPB 95032 [facility] VACCINE [facility] ADULT 3 HLTH DEPT HLTH DEPT DOSE RESHMA RESHMA SCHEDULE FOR IM USE HEPA 58222 [facility] VACCINE 4 [facility] ADULT HLTH DEPT HLTH DEPT DOSE FOR RESHMA RESHMA INTRAMUSC ULAR USE RADEX 53933 [facility] [place] ABDOMEN 4 RADIOLOGY RHO COMPL W/DCBTS&/ ERC VIEWS DXA BONE 52151 [facility] [place] DENSITY 4 RADIOLOGY RHO STUDY 1/> [place] [address] [facility] [place] ABDOMINAL 4 RADIOLOGY RHO REAL TIME W/IMAGE DOCUMENTA TION COMPRE 79094 [place] [facility] AUDIOMETR 4 PHYSICIAN Y PRACTICE THRESHOLD L EVAL SP RECOGNIJ TYMPANOME 99589 [place] [facility] TRY 4 PHYSICIAN PRACTICE L HEPATITIS 61972 [facility] Y Y ANTIBODY [facility] HBSAB HEPATITIS 55612 [facility] Y Y ANTIBODY [facility] HAAB PROTHROMB 34499 [facility] IN TIME Y Y HOSPITAL HOSPITAL Encounters Encounter Start End Date Code Location Performer Type Date EMERGENCY 90915 [facility] DE[facility] 7 7 CLARISSA VISIT EMERGENCY HIGH PHYS SEVERITY& THREAT FUN EMERGENCY 39943 [facility] 7 7 CLARISSA DEPARTMEN EMERGENCY T VISIT PHYS HIGH/URGE NT SEVERITY EMERGENCY 16066 [facility] DEPT 7 7 MEDICAL VISIT SERV HIGH FOUNDATIO SEVERITY& N THREAT PENDING SALE TO [facility] - 7 7 [facility] OUTPATIEN E T HOSPITALS EMERGENCY 18110 7 7 [facility] DEPARTMEN E T VISIT HOSPITALS HIGH/URGE NT SEVERITY EMERGENCY 22054 [facility] DEPT 7 7 CLARISSA VISIT EMERGENCY HIGH PHYS SEVERITY& THREAT PENDING [facility]ALE TO [facility] [place] [facility] 7 7 [facility] [place] [facility] 7 7 [facility] T EMERGENCY 51414 [place] [facility] 7 7 COMM[facility]ITY VISIT HOSPITAL HIGH SEVERITY& THREAT FUN EMERGENCY 94910 [facility] 7 7 MEDICAL VISIT SERV HIGH FOUNDATIO SEVERITY& N THREAT FUNCJ OFFICE [address] [facility] OUTPATIEN 7 7 FAMILY T VISIT PHYSICIAN 15 S PLLC MINUTES EMERGENCY 99817 [facility] 7 7 CLARISSA DEPARTMEN EMERGENCY T VISIT PHYS HIGH/URGE NT SEVERITY [facility]OSPITAL [facility] - 7 7 [facility] INPATIENT E HOSPITALS EMERGENCY 74649 [facility] DI[facility] DEPT 7 7 MEDICAL VISIT SERV HIGH FOUNDATIO SEVERITY& N THREAT FUN HOS[facility] 7 [facility] T EMERGENCY 37923 [facility] 7 7 CLARISSA DEPARTMEN EMERGENCY T VISIT PHYS HIGH/URGE NT SEVERITY EMERGENCY 37725 [facility] 7 7 CLARISSA VISIT EMERGENCY HIGH PHYS SEVERITY& THREAT FUNJ EMERGENCY 35682 [facility] DEPT 7 7 PHYSICIAN U VISIT S, PLLC HIGH SEVERITY& THREAT FUNCJ OFFICE 48960 [facility] BAND DIRECTOR CONSULTAT 7 7 MEDICAL ION SERV NEW/ESTAB FOUNDATIO PATIENT N 80 MIN EMERGENCY 37005 [facility] ROSEN[facility] 7 7 MEDICAL DEPARTMEN SERV T VISIT FOUNDATIO MODERATE N SEVERITY EMERGENCY 93276 [facility] GEREMIAS DEPT 7 7 CLARISSA VISIT EMERGENCY HIGH PHYS SEVERITY& THREAT FUNJ EMERGENCY 82916 [facility] 6 6 CLARISSA DEPARTMEN EMERGENCY T VISIT PHYS HIGH/URGE NT SEVERITY EMERGENCY 36785 [facility] 6 6 CLARISSA PAT DEPARTMEN EMERGENCY T VISIT PHYS HIGH/URGE NT SEVERITY [facility] T OFFICE 51851 [facility] 6 6 FAMILY T VISIT PHYSICIAN 15 S PLLC MINUTES EMERGENCY 29282 [facility] MATIAS DEPT 6 6 CLARISSA VISIT EMERGENCY HIGH PHYS SEVERITY& THREAT FUNJ EMERGENCY 48986 [facility] 6 6 CLARISSA LAST VISIT EMERGENCY HIGH PHYS SEVERITY& THREAT FUNCJ EMERGENCY [address] 6 6 MEDICAL DEPARTMEN SERV T VISIT FOUNDATIO LOW/MODER N SEVERITY OFFICE 34238 KMSAndria FERNANDEZ [facility] 6 6 NURSE REGINALD T VISIT PRACTITIO 25 NER GR MINUTES EMERGENCY 05975 [facility] 6 6 CLARISSA PAT DEPARTMEN EMERGENCY T VISIT PHYS HIGH/URGE NT SEVERITY [facility] [address] [facility] [place] 6 6 [facility] T OFFICE 52334 [facility] 6 6 FOOT & T NEW 30 ANKLE CE MINUTES OFFICE 63321 MANUEL ARNDT JAMIE [facility] 6 6 FAMILY T VISIT PHYSICIAN 15 S PLLC MINUTES EMERGENCY 15373 [facility] DARA INA 6 6 MEDICAL DEPARTMEN SERV T VISIT FOUNDATIO MODERATE N SEVERITY EMERGENCY 27473 [facility] DE[facility] 6 6 CLARISSA KATHY VISIT EMERGENCY HIGH PHYS SEVERITY& THREAT FUNCJ OFFICE 09701 MANUEL GREEN JAMIE OUTPATIEN 6 6 FAMILY T VISIT PHYSICIAN 25 S PLLC MINUTES EMERGENCY 36682 [facility] DEPT 6 6 CLARISSA PAT VISIT EMERGENCY HIGH PHYS SEVERITY& THREAT FUNCJ EMERGENCY 51194 [facility] DEPT 6 6 CLARISSA KATHY VISIT EMERGENCY HIGH PHYS SEVERITY& THREAT FUNCJ OFFICE 82639 [facility] 6 6 Y OF RTHY JERRY T VISIT [place] 15 HOSPI MINUTES OFFICE 67621 MANUEL ARNDT JAMIE OUTPATIEN 6 6 FAMILY T VISIT PHYSICIAN 15 S PLLC MINUTES EMERGENCY 31217 [facility] 6 6 CLARISSA PAT DEPARTMEN EMERGENCY T VISIT PHYS HIGH/URGE NT SEVERITY HOSPITAL [facility] - 6 6 Y [facility] OFF[facility] 99339 MANUEL AYALA OUTPATIEN 5 5 FAMILY T VISIT PHYSICIAN 15 S PLLC MINUTES OFFICE 47090 MANUEL GREEN JAMIE OUTPATIEN 5 5 FAMILY T VISIT PHYSICIAN 25 S PLLC MINUTES OFFICE 49811 MANUEL AYALA OUTPATIEN 5 5 FAMILY T VISIT PHYSICIAN 15 S PLLC MINUTES EMERGENCY 27317 [facility] DEPT 5 5 CLARISSA COLLINS VISIT EMERGENCY HIGH PHYS SEVERITY& THREAT FUNCJ EMERGENCY 79278 [place] 5 5 [facility] T VISIT HIGH/URGE NT SEVERITY HOSPITAL [place] - 5 5 [facility] T EMERGENCY 27097 [facility] 5 5 CLARISSA - [facility] EMERGENCY PAT T VISIT PHYS HIGH/URGE NT SEVERITY HOSPITAL [place] - 5 5 [facility] T EMERGENCY 99612 [facility] 5 5 [facility] T VISIT HIGH/URGE NT SEVERITY HOSPITAL [facility] - 5 5 [facility] T EMERGENCY 36466 [facility] 5 5 [facility] SERV T VISIT FOUNDATIO MODERATE N SEVERITY [facility]OSPITAL [place] - 5 5 [facility] T OFFICE 47791 MANUEL AYALA OUTPATIEN 5 5 FAMILY T VISIT PHYSICIAN 25 S PLLC MINUTES EMERGENCY 90894 [place] 5 5 [facility] T VISIT MODERATE SEVERITY [facility]OSPITAL [place] - 5 5 [facility] T EMERGENCY 05866 [facility] 5 5 [facility] T VISIT PHYS HIGH/URGE NT SEVERITY OFFICE 88020 MANUEL AYALA OUTPATIEN 5 5 FAMILY T VISIT PHYSICIAN 15 S PLLC MINUTES [facility]OS[facility] 5 [facility] INPATIENT [facility]OSPITAL EMERGENCY 96015 [facility] DEPT 5 5 CLARISSA COLLINS VISIT EMERGENCY HIGH PHYS SEVERITY& THREAT FUNCJ OFFICE 73653 MANUEL AYALA OUTPATIEN 5 5 FAMILY T VISIT PHYSICIAN 15 S PLLC MINUTES EMERGENCY 22623 [facility] 5 5 CLARISSA [facility] DEPARTMEN EMERGENCY T VISIT PHYS HIGH/URGE NT SEVERITY [facility] 5 5 [facility] T EMERGENCY 10218 [place] 5 5 [facility] T VISIT MODERATE SEVERITY OFFICE 91801 MANUEL YRIS AYALA OUTPATIEN 5 5 FAMILY T VISIT PHYSICIAN 15 S PLLC MINUTES [facility] 5 5 [facility] T EMERGENCY 21039 [facility] II DEPT 5 5 CLARISSA THO VISIT EMERGENCY HIGH PHYS SEVERITY& THREAT FUNCJ OFFICE 98705 [facility] JOSE ANTONIO [facility]ORAN OUTPATIEN 4 4 NURSE T NEW [address] [facility] OFFICE 72873 MANUEL AYALA OUTPATIEN 4 4 FAMILY T VISIT PHYSICIAN 15 S PLLC MINUTES OFFICE 96703 MANUEL AYALA OUTPATIEN 4 4 FAMILY T VISIT PHYSICIAN 25 S PLLC MINUTES EMERGENCY 92164 [facility] MATIAS DEPT 4 4 CLARISSA MUH VISIT EMERGENCY HIGH PHYSI SEVERITY& THREAT FUN HOSPITAL [facility] 4 4 [facility] T OFFICE 52216 [facility] OUTPATIEN 4 4 PHYSICIAN LES T VISIT PRACTICE 15 L MINUTES OFFICE 79044 [facility] OUTPATIEN 4 4 MEDICAL BELLA T VISIT SERV 25 FOUNDATIO MINUTES [facility] UNIVERSIT - 4 4 [facility] OFF[facility] 44600 DILEEP CLARK CONSULTAT 4 4 PHYSICIAN LES ION PRACTICE NEW/ESTAB L PATIENT 40 MIN OFFICE 26528 MANUEL AYALA [facility] 4 4 FAMILY T VISIT PHYSICIAN 15 S PLLC MINUTES
--- OUTSIDE RECORDS SUMMARY | 2017-06-14 12:58 | External Medical Summary Rpt ---
Author Author , UNIQUE CALHOUN Address Unknown Phone [email or web address] Immunization Name Date Rout CVX Reac Dose [...]
--- OUTSIDE RECORDS SUMMARY | 2017-06-14 12:58 | External Medical Summary Rpt ---
Author Author , UNIQUE CALHOUN Address Unknown Phone [email or web address] Immunization Name Date Rout CVX Reac Dose [...]
--- OUTSIDE RECORDS SUMMARY | 2017-06-14 12:59 | External Medical Summary Rpt ---
Author Author SADESHAM[employer], [employer] Organization [employer] Address Unknown Phone Unavailable Results Glucose [Mass/volume] in Capillary blood by Glucometer Observa Value Referen Units Interpr Notes Date tion ce etation Range Glucose 70 - 110 mg/dl High No Sep 7 [Mass/vol alert informati 2017 6:30 ume] in on in AM Capillary source blood by data Glucomete r Ammonia [Mass/volume] in Unspecified specimen Observa Value Referen Units Interpr Notes Date tion ce etation Range Ammonia 19 - 54 umoL/L Normal No Sep 7 [Mass/vol informati 2017 6:25 ume] in on in AM Unspecifi source ed data specimen CBC W Auto Differential panel in Blood Observa Value Referen Units Interpr Notes Date tion ce etation Range Basophils 0 - 0.2 K/MM3 Normal No Sep 7 informati 2017 6:25 [#/volume on in AM ] in source Blood by data Automated count Basophils 0.1 - 2.0 % Normal No Sep 7 /100 informati 2017 6:25 leukocyte on in AM s in source Blood by data Automated count Eosinophi 0.0 - 0.4 K/mm3 Normal No Sep 7 ls informati 2017 6:25 [#/volume on in AM ] in source Blood by data Automated count Eosinophi 0.1 - % Normal No Sep 7 ls/100 12.0 informati 2017 6:25 leukocyte on in AM s in source Blood by data Automated count Granulocy 1.3 - 8.0 K/mm3 Normal No Sep 7 favio informati 2017 6:25 [#/volume on in AM ] in source Blood by data Automated count Granulocy 37.0 - % High No Sep 7 favio/100 80.0 informati 2017 6:25 leukocyte on in AM s in source Blood by data Automated count Hematocri 42.0 - % Low No Sep 7 t [Volume 52.0 informati 2017 6:25 on in AM Fraction] source of Blood data Hemoglobi 14.1 - g/dL Low No Sep 7 n 18.0 informati 2017 6:25 [Mass/vol on in AM ume] in source Blood data Lymphocyt 0.7 - 4.5 K/mm3 Low No Sep 7 es informati 2017 6:25 [#/volume on in AM ] in source Unspecifi data ed specimen by Automated count Lymphocyt 10 - 50 % Normal No Sep 7 es informati 2017 6:25 [#/volume on in AM ] in source Unspecifi data ed specimen by Automated count Erythrocy 27 - 31.2 pg High No Sep 7 te mean informati 2017 6:25 corpuscul on in AM ar source hemoglobi data n [Entitic mass] Erythrocy 31.8 - g/dl Normal No Sep 7 te mean 35.4 informati 2017 6:25 corpuscul on in AM ar source hemoglobi data n concentra tion [Mass/vol ume] by Automated count Erythrocy 82.2 - fl High No Sep 7 te mean 97.8 informati 2017 6:25 corpuscul on in AM ar volume source [Entitic data volume] by Automated count Monocytes 0.1 - 1.0 K/mm3 Normal No Sep 7 informati 2017 6:25 [#/volume on in AM ] in source Blood by data Automated count Monocytes 1.7 - 9.3 % Normal No Sep 7 /100 informati 2017 6:25 leukocyte on in AM s in source Blood by data Automated count Platelet 7.4 - fl Normal No Sep 7 mean 10.4 informati 2017 6:25 volume on in AM [Entitic source volume] data in Blood by Automated count Platelets 142 - 424 K/mm3 Low No Sep 7 informati 2017 6:25 [#/volume on in AM ] in source Blood data Erythrocy 4.6 - 6.2 M/mm3 Low No Sep 7 favio informati 2017 6:25 [#/volume on in AM ] in source Amniotic data fluid Erythrocy 11.5 - % Normal No Sep 7 te 17.5 informati 2017 6:25 distribut on in AM ion width source [Entitic data volume] by Automated count Leukocyte 4.8 - K/MM3 Normal No Sep 7 s 10.8 informati 2017 6:25 [#/volume on in AM ] in source Blood data Comprehensive metabolic 2000 panel in Serum or Plasma Observa Value Referen Units Interpr Notes Date tion ce etation Range Albumin/G 1.1 - 1.8 No Low No Sep 7 lobulin informati informati 2017 6:25 [Mass on in on in AM ratio] in source source Serum or data data Plasma Albumin 3.4 - 5.0 gm/dL Low No Sep 7 [Mass/vol informati 2017 6:25 ume] in on in AM Serum or source Plasma data Alkaline 46 - 116 U/L High No Sep 7 phosphata informati 2017 6:25 se on in AM [Enzymati source c data activity/ volume] in Serum or Plasma Bilirubin 0.2 - 1.0 mg/dL High No Sep 7 .total informati 2017 6:25 [Mass/vol on in AM ume] in source Serum or data Plasma Urea 7 - 18 mg/dL High No Sep 7 nitrogen informati 2017 6:25 [Mass/vol on in AM ume] in source Serum or data Plasma Calcium 8.5 - mg/dL Normal No Sep 7 [Mass/vol 10.1 informati 2017 6:25 ume] in on in AM Serum or source Plasma data Chloride 98 - 107 mmoL/L Normal No Sep 7 [Moles/vo informati 2017 6:25 lume] in on in AM Serum or source Plasma data Carbon 21.0 - mmoL/L Normal No Sep 7 dioxide, 32.0 informati 2017 6:25 total on in AM [Moles/vo source lume] in data Serum or Plasma Creatinin 0.70 - mg/dL High No Sep 7 e 1.30 informati 2017 6:25 [Mass/vol on in AM ume] in source Serum or data Plasma Creatinin 50 - 200 ML/MIN Normal No Sep 7 e renal informati 2017 6:25 clearance on in AM source predicted data by Cockcroft -Gault formula Estimated >60 ML/MIN No REFERENCE Sep 7 informati RANGE: 2017 6:25 glomerula on in >60 AM r source ML/MIN/1. filtratio data 73 SQUARE n rate METERSIf (GF this patient is -A merican, then multiply theresult by 1.210. Globulin 1.3 - 3.2 gm/dL High No Sep 7 [Mass/vol informati 2017 6:25 ume] in on in AM Serum source data Glucose 74 - 106 mg/dL High Sep 7 [Mass/vol 2017 6:25 ume] in CRITICAL AM Serum or RESULTS Plasma RESU LTS CALLED TO: DEEPTI 05/15/17 0701 [address] Richard Potassium 3.5 - 5.1 mmoL/L Normal No Sep 7 informati 2017 6:25 [Moles/vo on in AM lume] in source Serum or data Plasma Sodium 136 - 145 mmoL/L Normal No Sep 7 [Moles/vo informati 2017 6:25 lume] in on in AM Serum or source Plasma data Aspartate 15 - 37 U/L High No Sep 7 informati 2017 6:25 aminotran on in AM sferase source [Enzymati data c activity/ volume] in Serum or Plasma Alanine 12 - 78 U/L Normal No Sep 7 aminotran informati 2017 6:25 sferase on in AM [Enzymati source c data activity/ volume] in Serum or Plasma Protein 6.4 - 8.2 gm/dL Normal No Sep 7 [Mass/vol informati 2017 6:25 ume] in on in AM Serum or source Plasma data Glucose [Mass/volume] in Capillary blood by Glucometer Observa Value Referen Units Interpr Notes Date tion ce etation Range Glucose 70 - 110 mg/dl High No Sep 6 [Mass/vol alert informati 2017 9:17 ume] in on in PM Capillary source blood by data Glucomete r Glucose [Mass/volume] in Capillary blood by Glucometer Observa Value Referen Units Interpr Notes Date tion ce etation Range Glucose 70 - 110 mg/dl High No Sep 6 [Mass/vol alert informati 2017 4:42 ume] in on in PM Capillary source blood by data Glucomete r Glucose [Mass/volume] in Capillary blood by Glucometer Observa Value Referen Units Interpr Notes Date tion ce etation Range Glucose 70 - 110 mg/dl High No Sep 6 [Mass/vol alert informati 2016 ume] in on in 11:20 AM Capillary source blood by data Glucomete r Comprehensive metabolic 2000 panel in Serum or Plasma Observa Value Referen Units Interpr Notes Date tion ce etation Range Albumin/G 1.1 - 1.8 No Low No Sep 6 lobulin informati informati 2017 6:30 [Mass on in on in AM ratio] in source source Serum or data data Plasma Albumin 3.4 - 5.0 gm/dL Low No Sep 6 [Mass/vol informati 2017 6:30 ume] in on in AM Serum or source Plasma data Alkaline 46 - 116 U/L High No Sep 6 phosphata informati 2017 6:30 se on in AM [Enzymati source c data activity/ volume] in Serum or Plasma Bilirubin 0.2 - 1.0 mg/dL High No Sep 6 .total informati 2017 6:30 [Mass/vol on in AM ume] in source Serum or data Plasma Urea 7 - 18 mg/dL High No Sep 6 nitrogen informati 2017 6:30 [Mass/vol on in AM ume] in source Serum or data Plasma Calcium 8.5 - mg/dL Normal No Sep 6 [Mass/vol 10.1 informati 2017 6:30 ume] in on in AM Serum or source Plasma data Chloride 98 - 107 mmoL/L High No Sep 6 [Moles/vo informati 2017 6:30 lume] in on in AM Serum or source Plasma data Carbon 21.0 - mmoL/L Normal No Sep 6 dioxide, 32.0 informati 2017 6:30 total on in AM [Moles/vo source lume] in data Serum or Plasma Creatinin 0.70 - mg/dL High No Sep 6 e 1.30 informati 2017 6:30 [Mass/vol on in AM ume] in source Serum or data Plasma Creatinin 50 - 200 ML/MIN Normal No Sep 6 e renal informati 2017 6:30 clearance on in AM source predicted data by Cockcroft -Gault formula Estimated >60 ML/MIN No REFERENCE Sep 6 informati RANGE: 2017 6:30 glomerula on in >60 AM r source ML/MIN/1. filtratio data 73 SQUARE n rate METERSIf (GF this patient is -A merican, then multiply theresult by 1.210. Globulin 1.3 - 3.2 gm/dL High No Sep 6 [Mass/vol informati 2017 6:30 ume] in on in AM Serum source data Glucose 74 - 106 mg/dL High No Sep 6 [Mass/vol informati 2017 6:30 ume] in on in AM Serum or source Plasma data Potassium 3.5 - 5.1 mmoL/L Normal No Sep 6 informati 2017 6:30 [Moles/vo on in AM lume] in source Serum or data Plasma Sodium 136 - 145 mmoL/L Normal No Sep 6 [Moles/vo informati 2017 6:30 lume] in on in AM Serum or source Plasma data Aspartate 15 - 37 U/L High No Sep 6 informati 2017 6:30 aminotran on in AM sferase source [Enzymati data c activity/ volume] in Serum or Plasma Alanine 12 - 78 U/L Normal No Sep 6 aminotran informati 2016 6:30 sferase on in AM [Enzymati source c data activity/ volume] in Serum or Plasma Protein 6.4 - 8.2 gm/dL Normal No Sep 6 [Mass/vol informati 2017 6:30 ume] in on in AM Serum or source Plasma data Ammonia [Mass/volume] in Unspecified specimen Observa Value Referen Units Interpr Notes Date tion ce etation Range Ammonia 19 - 54 umoL/L High No Sep 6 [Mass/vol informati 2017 6:30 ume] in on in AM Unspecifi source ed data specimen CBC W Auto Differential panel in Blood Observa Value Referen Units Interpr Notes Date tion ce etation Range Basophils 0 - 0.2 K/MM3 Normal No Sep 6 informati 2017 6:30 [#/volume on in AM ] in source Blood by data Automated count Basophils 0.1 - 2.0 % Normal No Sep 6 /100 informati 2017 6:30 leukocyte on in AM s in source Blood by data Automated count Eosinophi 0.0 - 0.4 K/mm3 Normal No Sep 6 ls informati 2016 6:30 [#/volume on in AM ] in source Blood by data Automated count Eosinophi 0.1 - % Normal No Sep 6 ls/100 12.0 informati 2017 6:30 leukocyte on in AM s in source Blood by data Automated count Granulocy 1.3 - 8.0 K/mm3 Normal No Sep 6 favio informati 2016 6:30 [#/volume on in AM ] in source Blood by data Automated count Granulocy 37.0 - % Normal No Sep 6 favio/100 80.0 informati 2016 6:30 leukocyte on in AM s in source Blood by data Automated count Hematocri 42.0 - % Low No Sep 6 t [Volume 52.0 informati 2016 6:30 on in AM Fraction] source of Blood data Hemoglobi 14.1 - g/dL Low No Sep 6 n 18.0 informati 2017 6:30 [Mass/vol on in AM ume] in source Blood data Lymphocyt 0.7 - 4.5 K/mm3 Normal No Sep 6 es informati 2017 6:30 [#/volume on in AM ] in source Unspecifi data ed specimen by Automated count Lymphocyt 10 - 50 % Normal No Sep 6 es informati 2017 6:30 [#/volume on in AM ] in source Unspecifi data ed specimen by Automated count Erythrocy 27 - 31.2 pg High No Sep 6 te mean informati 2017 6:30 corpuscul on in AM ar source hemoglobi data n [Entitic mass] Erythrocy 31.8 - g/dl Normal No Sep 6 te mean 35.4 informati 2017 6:30 corpuscul on in AM ar source hemoglobi data n concentra tion [Mass/vol ume] by Automated count Erythrocy 82.2 - fl High No Sep 6 te mean 97.8 informati 2017 6:30 corpuscul on in AM ar volume source [Entitic data volume] by Automated count Monocytes 0.1 - 1.0 K/mm3 Normal No Sep 6 informati 2017 6:30 [#/volume on in AM ] in source Blood by data Automated count Monocytes 1.7 - 9.3 % Normal No Sep 6 /100 informati 2017 6:30 leukocyte on in AM s in source Blood by data Automated count Platelet 7.4 - fl Normal No Sep 6 mean 10.4 informati 2017 6:30 volume on in AM [Entitic source volume] data in Blood by Automated count Platelets 142 - 424 K/mm3 Low No Sep 6 informati 2017 6:30 [#/volume on in AM ] in source Blood data Erythrocy 4.6 - 6.2 M/mm3 Low No Sep 6 favio informati 2017 6:30 [#/volume on in AM ] in source Amniotic data fluid Erythrocy 11.5 - % High No Sep 6 te 17.5 informati 2017 6:30 distribut on in AM ion width source [Entitic data volume] by Automated count Leukocyte 4.8 - K/MM3 Low No Sep 6 s 10.8 informati 2017 6:30 [#/volume on in AM ] in source Blood data Glucose [Mass/volume] in Capillary blood by Glucometer Observa Value Referen Units Interpr Notes Date tion ce etation Range Glucose 70 - 110 mg/dl High No Sep 6 [Mass/vol informati 2017 6:12 ume] in on in AM Capillary source blood by data Glucomete r Glucose [Mass/volume] in Capillary blood by Glucometer Observa Value Referen Units Interpr Notes Date tion ce etation Range Glucose 70 - 110 mg/dl High No Sep 5 [Mass/vol alert informati 2017 8:23 ume] in on in PM Capillary source blood by data Glucomete r Ammonia [Mass/volume] in Unspecified specimen Observa Value Referen Units Interpr Notes Date tion ce etation Range Ammonia 19 - 54 umoL/L High No Sep 5 [Mass/vol informati 2016 6:15 ume] in on in PM Unspecifi source ed data specimen Glucose [Mass/volume] in Capillary blood by Glucometer Observa Value Referen Units Interpr Notes Date tion ce etation Range Glucose 70 - 110 mg/dl High No Sep 5 [Mass/vol alert informati 2016 4:29 ume] in on in PM Capillary source blood by data Glucomete r Comprehensive metabolic 2000 panel in Serum or Plasma Observa Value Referen Units Interpr Notes Date tion ce etation Range Albumin/G 1.1 - 1.8 No Low No Sep 5 lobulin informati informati 2017 [Mass on in on in 10:25 AM ratio] in source source Serum or data data Plasma Albumin 3.4 - 5.0 gm/dL Normal No Sep 5 [Mass/vol informati 2017 ume] in on in 10:25 AM Serum or source Plasma data Alkaline 46 - 116 U/L High No Sep 5 phosphata informati 2017 se on in 10:25 AM [Enzymati source c data activity/ volume] in Serum or Plasma Bilirubin 0.2 - 1.0 mg/dL High No Sep 5 .total informati 2017 [Mass/vol on in 10:25 AM ume] in source Serum or data Plasma Urea 7 - 18 mg/dL High No Sep 5 nitrogen informati 2017 [Mass/vol on in 10:25 AM ume] in source Serum or data Plasma Calcium 8.5 - mg/dL Normal No Sep 5 [Mass/vol 10.1 informati 2017 ume] in on in 10:25 AM Serum or source Plasma data Chloride 98 - 107 mmoL/L Normal No Sep 5 [Moles/vo informati 2017 lume] in on in 10:25 AM Serum or source Plasma data Carbon 21.0 - mmoL/L Normal No Sep 5 dioxide, 32.0 informati 2017 total on in 10:25 AM [Moles/vo source lume] in data Serum or Plasma Creatinin 0.70 - mg/dL High No Sep 5 e 1.30 informati 2017 [Mass/vol on in 10:25 AM ume] in source Serum or data Plasma Creatinin 50 - 200 ML/MIN Normal No Sep 5 e renal informati 2017 clearance on in 10:25 AM source predicted data by Cockcroft -Gault formula Estimated >60 ML/MIN No REFERENCE Sep 5 informati RANGE: 2017 glomerula on in >60 10:25 AM r source ML/MIN/1. filtratio data 73 SQUARE n rate METERSIf (GF this patient is -A merican, then multiply theresult by 1.210. Globulin 1.3 - 3.2 gm/dL High No Sep 5 [Mass/vol informati 2017 ume] in on in 10:25 AM Serum source data Glucose 74 - 106 mg/dL High No Sep 5 [Mass/vol informati 2017 ume] in on in 10:25 AM Serum or source Plasma data Potassium 3.5 - 5.1 mmoL/L Normal No Sep 5 informati 2017 [Moles/vo on in 10:25 AM lume] in source Serum or data Plasma Sodium 136 - 145 mmoL/L Normal No Sep 5 [Moles/vo informati 2017 lume] in on in 10:25 AM Serum or source Plasma data Aspartate 15 - 37 U/L High No Sep 5 informati 2017 aminotran on in 10:25 AM sferase source [Enzymati data c activity/ volume] in Serum or Plasma Alanine 12 - 78 U/L Normal No Sep 5 aminotran informati 2017 sferase on in 10:25 AM [Enzymati source c data activity/ volume] in Serum or Plasma Protein 6.4 - 8.2 gm/dL Normal No Sep 5 [Mass/vol informati 2017 ume] in on in 10:25 AM Serum or source Plasma data Lactate [Moles/volume] in Blood Observa Value Referen Units Interpr Notes Date tion ce etation Range Lactate 0.4 - 2.0 mmol/L High Sep 5 [Moles/vo 2017 lume] in CRITICAL 10:25 AM Blood RESULTS CIPRIANOU LTS CALLED TO: YVONAnneNIKO 05/13/17 1050 Abdiel Arevalo elevated Lactic Acid is suggestiv e of sepsis and shouldbe repeated within 6 hours of initial testing. Ammonia [Mass/volume] in Unspecified specimen Observa Value Referen Units Interpr Notes Date tion ce etation Range Ammonia 19 - 54 umoL/L High No Sep 5 [Mass/vol informati 2017 ume] in on in 10:25 AM Unspecifi source ed data specimen Lactate [Moles/volume] in Blood Observa Value Referen Units Interpr Notes Date tion ce etation Range Lactate 0.4 - 2.0 mmol/L High An Sep 5 [Moles/vo elevated 2017 6:40 lume] in Lactic AM Blood Acid is suggestiv e of sepsis and shouldbe repeated within 6 hours of initial testing. Ammonia [Mass/volume] in Unspecified specimen Observa Value Referen Units Interpr Notes Date tion ce etation Range Ammonia 19 - 54 umoL/L High RECHECKED Sep 5 [Mass/vol AND 2017 6:40 ume] in VERIFIED AM Unspecifi ON TWO ed SPECIENS specimen INR in Blood by Coagulation assay Observa Value Referen Units Interpr Notes Date tion ce etation Range IS PATIENT ON ANTICOAGULANTS? N INR in 0.9 - 1.1 No High INDICATIO Sep 5 Blood by informati N 2016 5:55 Coagulati on in AM on assay source INR data RANGETHER APY FOR DVT, PE, ATRIAL FIB; 2.0 - 3.0PROPHY LAXIS FOR VTETHERAP Y FOR MECHANICA L HEART 2.5 - 3.5VALVE; PREVENTIO N OF SYSTEMICE MBOLISM SECONDARY TO AMI Prothromb 9.4 - SECONDS High No Sep 5 in time 11.8 informati 2017 5:55 (PT) in on in AM Platelet source poor data plasma by Coagulati on assay Activated partial thrombplastin time (aPTT) in Platelet poor plasma by Coagulation assay Observa Value Referen Units Interpr Notes Date tion ce etation Range IS PATIENT ON ANTICOAGULANTS? N Activated 23.6 - SECONDS Normal No Sep 5 partial 34.0 informati 2017 5:55 thrombpla on in AM stin time source (aPTT) data in Platelet poor plasma by Coagulati on assay CBC W Auto Differential panel in Blood Observa Value Referen Units Interpr Notes Date tion ce etation Range Basophils 0 - 0.2 K/MM3 Normal No Sep 5 informati 2016 5:55 [#/volume on in AM ] in source Blood by data Automated count Basophils 0.1 - 2.0 % Normal No Sep 5 /100 informati 2016 5:55 leukocyte on in AM s in source Blood by data Automated count Eosinophi 0.0 - 0.4 K/mm3 Normal No Sep 5 ls informati 2016 5:55 [#/volume on in AM ] in source Blood by data Automated count Eosinophi 0.1 - % Normal No Sep 5 ls/100 12.0 informati 2016 5:55 leukocyte on in AM s in source Blood by data Automated count Granulocy 1.3 - 8.0 K/mm3 Normal No Sep 5 favio informati 2016 5:55 [#/volume on in AM ] in source Blood by data Automated count Granulocy 37.0 - % Normal No Sep 5 favio/100 80.0 informati 2016 5:55 leukocyte on in AM s in source Blood by data Automated count Hematocri 42.0 - % Low No Sep 5 t [Volume 52.0 informati 2016 5:55 on in AM Fraction] source of Blood data Hemoglobi 14.1 - g/dL Low No Sep 5 n 18.0 informati 2016 5:55 [Mass/vol on in AM ume] in source Blood data Lymphocyt 0.7 - 4.5 K/mm3 Normal No Sep 5 es informati 2017 5:55 [#/volume on in AM ] in source Unspecifi data ed specimen by Automated count Lymphocyt 10 - 50 % Normal No Sep 5 es informati 2016 5:55 [#/volume on in AM ] in source Unspecifi data ed specimen by Automated count Erythrocy 27 - 31.2 pg High No Sep 5 te mean informati 2016 5:55 corpuscul on in AM ar source hemoglobi data n [Entitic mass] Erythrocy 31.8 - g/dl Normal No Sep 5 te mean 35.4 informati 2016 5:55 corpuscul on in AM ar source hemoglobi data n concentra tion [Mass/vol ume] by Automated count Erythrocy 82.2 - fl High No Sep 5 te mean 97.8 informati 2016 5:55 corpuscul on in AM ar volume source [Entitic data volume] by Automated count Monocytes 0.1 - 1.0 K/mm3 Normal No Sep 5 informati 2016 5:55 [#/volume on in AM ] in source Blood by data Automated count Monocytes 1.7 - 9.3 % Normal No Sep 5 /100 informati 2016 5:55 leukocyte on in AM s in source Blood by data Automated count Platelet 7.4 - fl Normal No Sep 5 mean 10.4 informati 2017 5:55 volume on in AM [Entitic source volume] data in Blood by Automated count Platelets 142 - 424 K/mm3 Low No Sep 5 informati 2016 5:55 [#/volume on in AM ] in source Blood data Erythrocy 4.6 - 6.2 M/mm3 Low No Sep 5 favio informati 2016 5:55 [#/volume on in AM ] in source Amniotic data fluid Erythrocy 11.5 - % High No Sep 5 te 17.5 informati 2016 5:55 distribut on in AM ion width source [Entitic data volume] by Automated count Leukocyte 4.8 - K/MM3 Low No Sep 5 s 10.8 informati 2016 5:55 [#/volume on in AM ] in source Blood data Glucose [Mass/volume] in Capillary blood by Glucometer Observa Value Referen Units Interpr Notes Date tion ce etation Range Glucose 70 - 110 mg/dl High No Sep 5 [Mass/vol informati 2016 5:52 ume] in on in AM Capillary source blood by data Glucomete r
--- OUTSIDE RECORDS SUMMARY | 2017-06-14 14:11 | External Medical Summary Rpt ---
Author Author , UNIQUE CALHOUN Address Unknown Phone [email or web address] Care Team Providers Care Customer Service Correspondence Clerk Name Role Phone SIMONE CHICHI, SIMONE CHICHI Unavailable Unavailable ARNOLD, ARNOLD Unavailable Unavailable ARNOLD LAST, ARNOLD Unavailable Unavailable LAST EDUARDO LES, EDUARDO Unavailable Unavailable LES LAYTON, LAYTON Unavailable Unavailable AVALLONE, AVALLONE Unavailable Unavailable BEINEKE, BEINEKE Unavailable Unavailable PULIDO, PULIDO Unavailable Unavailable [facility] Unavailable Unavailable [facility], [facility] PHYSICIAN Unavailable Unavailable PRACTICE L, [facility], [facility] Unavailable Unavailable [facility] Unavailable Unavailable SERVICE, [facility] BRIAN, Unavailable Unavailable BRIAN [...] Unavailable GALLO LINDA, GALLO LINDA Unavailable Unavailable ROBERTH, ROBERTH Unavailable Unavailable ANGELA DECALVO, Unavailable [...] Unavailable SERVICES O, [facility] CHANNEL CEMENTER, CHANNEL CEMENTER Unavailable Unavailable SHAY MOSES, SHAY Unavailable Unavailable III SHAY III MARY KATE, Unavailable Unavailable SHAY III MARY KATE [facility] Un[facility] Unavailable GROUP PS, [facility] Unavailable Unavailable [facility], [facility] MATTHEW, MATTHEW Unavailable Unavailable [facility] NURSE Unavailable Unavailable PRACTITIONER GR, [facility] NURSE PRACTITIONER GR GOOD JERRY, Unavailable Unavailable GOOD JERRY BRANDAN PET, BRANDAN PET Unavailable Unavailable BENSON, BENSON Unavailable Unavailable [facility], Unavailable Unavailable [facility] JESSICA, JESSICA Unavailable Unavailable [facility] Un[facility] Unavailable [facility], [facility] DL, DL Unavailable Unavailable [facility], Unavailable Unavailable [facility] TREVON, TREVON Unavailable Unavailable LUBBERS WAL, LUBBERS Unavailable Unavailable WAL MARDINI, MARDINI Unavailable Unavailable MERHAR, MERHAR Unavailable Unavailable RHONDA, RHONDA Unavailable Unavailable MNACUSO, MANCUSO Unavailable Unavailable BURGOS, BURGOS Unavailable Unavailable BURGOS JENNIFER, BURGOS JENNIFER Unavailable Unavailable RONAN, RONAN Unavailable Unavailable LINDA GALLO MD Unavailable Unavailable CONSULTING SRV, LINDA GALLO MD CONSULTING SRV [facility] Unavailable Unavailable EMS, [facility] EMS [facility] Unavailable [facility]available EMS, [facility] EMS [facility] Unavailable Unavailable PHYSICIANS [facility], [facility], Unavailable Unavailable PLL, [facility], Unavailable Unavailable [facility], Unavailable Unavailable [facility] WYNNE MONA, Unavailable Unavailable WYNNE MONA MATIAS, MATIAS Unavailable Unavailable MATIAS MUH, MATIAS [...] [facility] Unavailable Unavailable PHYSICIAN SERVI, [facility] WEBBER, WEBBER Unavailable Unavailable WEBBER RAY, WEBBER Unavailable Unavailable RAY SWINEY PAT, SWINEY Unavailable Unavailable PAT FLORENCIO TER, FLORENCIO TER Unavailable Unavailable [facility] Unavailable Unavailable [facility]ALS, [facility], Unavailable Unavailable [facility] Unavailable Unavailable [facility] BRENNAN MARY KATE, BRENNAN Unavailable Unavailable MARY KATE JIM REGINALD, JIM Unavailable Unavailable REGINALD ALANIS, ALANIS Unavailable Unavailable [facility] Unavailable Unavailable DEPT [facility], [facility] DE[facility] Unavailable Unavailable DEPT [facility], [facility] DEPT RESHMA NICOLAS VALENZUELA Unavailable Unavailable [...] O FAILURE WITHOUT COMA R51 HEADACHE 02-14-2017 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 E87.6 Hypokalemia 02-06-2017 I12.9 Hypertensiv 02-06-2017 e chronic kidney disease with stage 1 through stage 4 chronic kidney disease, or unspecified chronic kidney disease K74.60 Unspecified 02-06-2017 cirrhosis of liver K75.81 Nonalcoholi 02-06-2017 c steatohepat itis (GUILLAUME) K92.0 Hematemesis 02-06-2017 K92.1 Melena 02-06-2017 N17.9 Acute 02-06-2017 kidney failure, unspecified N18.9 Chronic 02-06-2017 kidney disease, unspecified N40.0 Benign 02-06-2017 prostatic hyperplasia without lower urinary tract symptoms Z76.82 Awaiting 02-06-2017 organ transplant status D649 ANEMIA 01-31-2017 [facility] K92.2 Gastrointes 01-30-2017 tinal hemorrhage, unspecified K922 GASTROINTES 01-30-2017 [facility]INAL [facility] HEMORRHAGE [facility] UNSPECIFIED E1165 TYPE 2 01-29-2017 [facility] DIABETES FAMILY MELLITUS PHYSICIANS WITH PLL[place] HYPER[place]YCEM [place] [id number] PAIN IN 01-29-2017 [facility] RIGHT FOOT [facility]ILY [facility] J47065 PAIN IN 01-29-2017 [facility] R600 LOCALIZED 01-26-2017 [facility] EDEMA N EMERGENCY PHYS R739 HYPERGLYCEM 01-26-2017 [facility] IA N EMERGENCY UNSPECIFIED PHYS D62 Acute 01-21-2017 posthemorrh agic anemia E11.65 Type 2 01-21-2017 diabetes mellitus with hyperglycem ia I16.0 Hypertensiv 01-21-2017 e urgency K21.0 Gastro-esop 01-21-2017 hageal reflux disease with esophagitis K72.90 Hepatic 01-21-2017 failure, unspecified without coma R40.2143 Coma scale, 01-21-2017 eyes open, spontaneous , at hospital admission R40.2253 Coma scale, 01-21-2017 best verbal response, oriented, at hospital admission R40.2363 Coma scale, 01-21-2017 best motor response, obeys commands, at hospital admission Z68.34 Body mass 01-21-2017 index (BMI) 34.0-34.9, adult D62 ACUTE 01-15-2017 [facility] AGIC ANEMIA K209 ESOPHAGITIS 01-15-2017 [facility] UNSPECIFIED K921 MELENA 01-15-2017 [facility] D509 IRON 01-12-2017 [facility] DEFICIENCY N PHYSICIAN ANEMIA SERVI UNSPECIFIED I160 HYPERTENSIV 01-12-2017 [facility] E URGENCY N PHYSICIAN SERVI K219 GASTRO-ESOP 01-12-2017 [facility] H REFLUX N PHYSICIAN DISEASE SERVI WITHOUT ESOPHAGITIS N179 ACUTE 01-12-2017 [facility] UNSPECIFIED Z7682 AWAITING 01-12-2017 [facility] STATUS B08182 EFFUSION 12-27-2016 [facility] RIGHT ANKLE N EMERGENCY PHYS M91645 EFFUSION 12-27-2016 [facility] LEFT ANKLE N EMERGENCY PHYS D64.9 Anemia, 12-23-2016 unspecified E87.1 Hypo-osmola 12-23-2016 lity and hyponatremi a I10 Essential 12-23-2016 (primary) hypertensio n K76.6 Portal 12-23-2016 hypertensio n K80.20 Calculus of 12-23-2016 gallbladder without cholecystit is without obstruction N39.0 Urinary 12-23-2016 tract infection, site not specified N390 URINARY 12-20-2016 [facility] TRACT N EMERGENCY INFECTION PHYS SITE NOT SPECIFIED R0609 OTHER FORMS 12-20-2016 [facility] [place] OF DYSPNEA RADIOLOGY R110 NAUSEA 12-20-2016 [facility] N EMERGENCY PHYS E80.6 Other 12-17-2016 disorders of bilirubin metabolism R11.0 Nausea 12-16-2016 R079 CHEST PAIN 12-16-2016 [facility] R1084 GENERALIZED 12-16-2016 [facility] ABDOMINAL [facility] PAIN [facility] R9431 ABNORMAL 12-16-2016 [facility] ELECTROCARD SERV IOGRAM [facility] D68.9 Coagulation [...] pain, at hospital admission R49.0 Dysphonia 11-26-2016 R50.9 Fever, 11-26-2016 unspecified R57.1 Hypovolemic 11-26-2016 shock Z68.41 Body mass 11-26-2016 index (BMI) 40.0-44.9, adult 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 I8501 ESOPHAGEAL 11-22-2016 [facility] BLEEDING R1310 DYSPHAGIA 11-22-2016 [facility] Z0189 ENCOUNTER 11-22-2016 [facility] OTHER [facility] SPECIFIED [facility] SPECIAL EXAMINATION S K228 OTHER 11-21-2016 [facility] SPECIFIED SERV DISEASES OF [facility] ESOPHAGUS R490 DYSPHONIA 11-21-2016 [facility] [id number] OTH FORGEN 11-20-2016 [facility] OBJ RESP [...] [facility] NON-VASCULA R CATHETER I2119 ST 11-16-2016 [facility] E[facility]ATION SERV AR INVOLV [facility] OT CORONARY ART INF WALL R000 TACHYCARDIA 11-16-2016 [...] J9811 ATELECTASIS 11-13-2016 [facility] O3456HH OTHER 11-13-2016 [facility] POSTPROCEDU SERV RAL [place] [facility] SUBSEQUENT ENCOUNTER R0989 OTH SPEC SX 11-12-2016 [facility] & SIGNS SERV INVLV THE [facility] CIRC & RESP SYS E11.9 Type 2 11-11-2016 diabetes mellitus without complicatio ns K74.69 Other 11-11-2016 cirrhosis of liver R10.9 Unspecified 11-11-2016 abdominal pain E806 OTHER 11-11-2016 [facility] DISORDERS SERV OF [facility] BILIRUBIN METABOLISM E872 ACIDOSIS 11-11-2016 [facility] E876 HYPOKALEMIA 11-11-2016 [facility] I4891 UNSPECIFIED 11-11-2016 [facility] ATRIAL [facility] FIBRILLATIO FOUNDATION N I959 HYPOTENSION 11-11-2016 S NURSE PRACTITIONE UNSPECIFIED R GR J849 INTERSTITIA 11-11-2016 [facility] L PULMONARY SERV DISEASE [facility] UNSPECIFIED J984 OTHER 11-11-2016 [facility] DISORD[facility] OF LUNG [facility] Z452 ENCOUNTER 11-09-2016 [facility] ADJUSTMENT& SERV MGMT [facility] VASCULAR ACCESS DEVICE E875 HYPERKALEMI 11-08-2016 [facility] NURSE Javy BREANNA Whitney GR I459 CONDUCTION 11-08-2016 [facility] DISORDER [facility] UNSPECIFIED FOUNDATION K920 HEMATEMESIS 11-08-2016 [facility] K8020 CALCULUS GB 11-07-2016 [facility] W/O SERV CHOLECYSTIT [facility] IS W/O OBSTRUCTION R188 OTHER 11-07-2016 [facility] ASCITES [facility] Z8719 PERSONAL 11-07-2016 [facility] HISTORY [facility] OTHER [facility] DISEASES DIGESTIVE SYSTEM R0602 SHORTNESS 11-06-2016 [facility] R531 WEAKNESS 11-06-2016 [facility] M542 CERVICALGIA 10-21-2016 [facility] M6281 MUSCLE 10-21-2016 [facility] EMS R1030 LOWER 10-21-2016 [facility] ABDOMINAL SERV PAIN [facility] UNSPECIFIED R05 COUGH 10-09-2016 [facility] RADIOLOGY J189 PNEUMONIA 09-22-2016 [facility] ORGANISM IMAGING ASS Z09 ENC F/U 09-22-2016 [place] EXAM AFTR MEDICAL CMPL TX OTH IMAGING ASS THAN MALIG NEOPLSM R509 FEVER 09-19-2016 [place] UNSPECIFIED MEDICAL IMAGING ASS H1133 CONJUNCTIVA 07-28-2016 [facility] HEMORRHAGE PHYS BILATERAL R030 ELEVATED 07-28-2016 [facility] BLOOD-PRESS N EMERGENCY URE READING PHYS WITHOUT DX HTN R0789 OTHER CHEST 07-28-2016 [facility] PAIN N EMERGENCY PHYS J523HOC OTHER 07-28-2016 [facility] [place] SPECIFIED RADIOLOGY INJURIES THORAX INITIAL ENC H1032 UNSPECIFIED 07-24-2016 [facility] CONJUNCTIVI PHYSICIANS TIS LEFT [facility] H1132 CONJUNCTIVA 07-22-2016 [facility] HEMORRHAGE PHYS LEFT EYE D630FSG CONTUSION 07-22-2016 [facility] OF N EMERGENCY ABDOMINAL PHYS WALL INITIAL ENCOUNTER E8342 HYPOMAGNESE 07-01-2016 [facility] TONI N EMERGENCY PHYS G0430 ACUTE 07-01-2016 [facility] NECROTIZING N EMERGENCY PHYS HEMORRHAGIC ENCEPHALOPA THY UNS R1110 VOMITING 06-28-2016 [facility] G4710 HYPERSOMNIA 06-11-2016 LINDA GALLO MD UNSPECIFIED CONSULTING SRV D490 NEOPLASM OF 06-07-2016 [facility] UNS SERV BEHAVIOR [facility] DIGESTIVE SYSTEM K766 PORTAL 06-07-2016 [facility] HYPERTENSIO SERV N [facility]OUNDATION R161 SPLENOMEGAL 06-07-2016 [place] [facility] [place] NOT SERV ELSEWHERE [facility] CLASSIFIED G479 SLEEP 06-03-2016 [facility] DISORDER [facility] R0683 SNORING 06-03-2016 [facility] R5383 OTHER 06-03-2016 [facility] A31392 PAIN IN 05-20-2016 [place] UNSPECIFIED FOOT & LIMB ANKLE CE R072 PRECORDIAL 05-16-2016 LINDA GALLO PAIN MD CONSULTING SRV G4733 OBSTRUCTIVE 05-02-2016 [facility] SLEEP FAMILY [facility] ADULT PHYSICIANS [facility]ATRIC [facility] V53479B TOX EFF OTH 04-08-2016 [facility] GASES N EMERGENCY FUMES & PHYS VAPORS ACC INITIAL ENC M545 LOW BACK 03-04-2016 [facility] PAIN FAMILY PHYSICIANS PLL R112 NAUSEA WITH 03-04-2016 [facility] UNSPECIFIED R1033 PERIUMBILIC 02-28-2016 [facility] AL PAIN N EMERGENCY PHYS R5381 OTHER 01-29-2016 [facility] MALAISE N EMERGENCY PHYS R17 UNSPECIFIED 01-26-2016 [facility] HOSPI L0390 CELLULITIS 01-08-2016 [facility] UNSPECIFIED FAMILY PHYSICIANS [facility] M546 PAIN IN 11-10-2015 [facility] THORACIC N EMERGENCY SPINE PHYS P72456 MUSCLE 11-10-2015 [facility] SPASM OF N EMERGENCY BACK PHYS K6389 OTHER 09-05-2015 [facility] [place] SPECIFIED RADIOLOGY DISEASES OF INTESTINE B370 CANDIDAL 08-15-2015 [facility] STOMATITIS FAMILY PH[facility]ICIANS [facility] K222 ESOPHAGEAL 07-26-2015 [facility] OBSTRUCTION REGIONAL PHYSICIAN PRA K319 DISEASE OF 07-26-2015 [facility]EN[facility] PS UNSPECIFIED K449 DIAPHRAGMAT 07-26-2015 [place] IC HERNIA ANESTHESIA W/O GROUP PS OBSTRUCTION OR GANGRENE 4660 ACUTE 06-07-2015 [facility] BRONCHITIS [facility]ANS PLLC 01760 ABDOMINAL 06-07-2015 [facility] PAIN, FAMILY GENERALIZED PHYSICIANS PLL 7242 LUMBAGO 06-01-2015 [facility] [place] RADI[facility] 7862 COUGH 06-01-2015 [facility] [place] [facility] 27273 ABDOMINAL 06-01-2015 [facility] [place] PAIN RIGHT RADIOLOGY LOWER QUADRANT 43878 DIAB W/O 05-31-2015 [facility] COMP TYPE N EMERGENCY II/UNS NOT PHYS STATED [facility] 4019 UNSPECIFIED 05-31-2015 [facility] HYPERTEN[facility]O HOSPITAL N 4549 ASYMPTOMATI 05-31-2015 [facility] C VARICOSE [facility] 5715 CIRRHOSIS 05-31-2015 [facility] OF LIVER COMMUNITY WITHOUT HOSPITAL MENTION OF ALCOHOL 37279 OSTEOARTHRO 05-31-2015 [facility] S UNSPEC COMMUNITY WHETHER HOSPITAL GEN/LOC UNSPEC SITE 7213 LUMBOSACRAL 05-31-2015 [facility] N EMERGENCY SPONDYLOSIS PHYS WITHOUT MYELOPATHY 66677 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 [facility] 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 59307 OTHER 05-31-2015 [facility] ASCITES [facility] V5867 LONG-TERM 05-31-2015 [facility] USE OF [facility] V5869 LONG-TERM 05-31-2015 [facility] (CURRENT) [facility] USE OF HOSPITAL OTHER MEDICATIONS 72365 NAUSEA WITH 05-26-2015 [facility] VOMITING [facility] 52806 ABDOMINAL 05-26-2015 [facility] PAIN RIGHT N EMERGENCY UPPER PHYS QUADRANT 38779 ABDOMINAL 05-26-2015 [facility] PAIN, LEFT N EMERGENCY LOWER PHYS QUADRANT 74077 ABDOMINAL 05-26-2015 [facility] PAIN, N EMERGENCY EPIGASTRIC PHYS V145 PERSONAL 05-26-2015 [place] [facility]ISTORY [facility] COMM[facility]ITY ALLERGY TO HOSPITAL NARCOTIC AGENT 36697 ABDOMINAL 05-04-2015 [facility] UNSPECIFIED SITE 5718 OTHER 04-12-2015 [facility] CHRONIC [facility] C LIVER DISEASE 51301 UNSPEC 04-12-2015 [facility] INJURY LIVR N EMERGENCY W/O PHYS MENTION OPN WOUND IN CAV 74166 DIAB W/O 03-27-2015 [facility] MENTION FAMILY COMP TYPE PHYSICIANS II/UNS TYPE PLLC UN[facility]L 52089 DIVERTICULI 03-27-2015 [facility] TIS OF FAMILY COLON PHYSICIANS PLLC 5589 OTH&UNSPEC 03-20-2015 [facility] NONINFECTIO N PHYSICIAN US SERVI GASTROENTER ITIS&COLITI S 5723 PORTAL 03-16-2015 [facility] [place] HYPERTENSIO RADIOLOGY N 97157 ABDOMINAL 03-16-2015 [facility] PAIN, N EMERGENCY PERIUMBILIC PHYS V146 PERSONAL 03-16-2015 [place] [facility]ITY ALLERGY TO HOSPITAL ANALGESIC AGENT 5289 OTHER&UNSPE 02-14-2015 [facility] CIFIED N EMERGENCY DISEASES PHYS THE ORAL SOFT TISSUES 5290 GLOSSITIS 02-14-2015 [facility] N EMERGENCY PHYS 2382 NEOPLASM OF 01-24-2015 [facility] UNCERTAIN FAMILY BEHAVIOR OF PHYSICIANS SKIN PLLC 4871 INFLUENZA 10-31-2014 [facility] WITH OTHER N PHYSICIAN RESPIRATORY SERVI MANIFESTATI ONS 88704 FEVER 10-31-2014 [facility] UNSPECIFIED N PHYSICIAN SERVI 486 PNEUMONIA, 10-30-2014 [facility] ORGANISM N EMERGENCY UNSPECIFIED PHYS 51664 OBESITY, 08-24-2014 [facility] NURSE UNSPECIFIED PRACTITIONE R GR V069 NEED PROPH 07-28-2014 [facility] VACC[facility]ATION [facility] W/UNSPEC [facility] DEPT COMB RESHMA VACCINE 42239 DISORDER OF 07-05-2014 [facility] [place] BONE AND RADIOLOGY CARTILAGE UNSPECIFIED 7948 NONSPECIFIC 07-05-2014 [facility] [place] ABNORMAL RADIOLOGY RESULTS LIVR FUNCTION STUDY 41497 DYSFUNCTION 06-29-2014 [place] OF PHYSICIAN EUSTACHIAN PRACTICE L TUBE 96361 SUBJECTIVE 06-29-2014 [place] TINNITUS PHYSICIAN PRACTICE L 93090 SENSORINEUR 06-29-2014 [place] AL HEARING PHYSICIAN LOSS PRACTICE L BILATERAL 7804 DIZZINESS 06-29-2014 [place] AND PHYSICIAN GIDDINESS PRACTICE L 4561 ESOPHAGEAL 06-27-2014 [place] [facility] VARICES SERV WITHOUT FOUNDATION MENTION OF BLEEDING 3899 UNSPECIFIED 06-21-2014 [facility] HEARING PHYSICIAN LOSS PRACTICE L Allergies, Adverse [...] ia de te s n re d CA 00 09 09 60 30 00 [...] PH AR MA CY #3 01 6 [place] 65 08 09 12 2 00 [...] 80 2- 1- 00 01 UC ve AR 21 20 20 03 [place] DE 61 [...] ve G 79 20 20 04 [place] AR 75 17 17 96 X 9 17 [...] MG 33 7 CA PS UL E ME 68 07 08 60 30 00 KE Ac TF 38 -1 -0 .0 00 NT ti OR 20 5- 4- 00 01 UC ve AR 76 20 20 02 [place] N 01 [...] JUANY CY #3 01 6 XI 65 07 [...] 80 9- 8- 00 01 UC ve AR 21 20 20 03 [place] DE 61 [...] 20 9- 1- 00 01 UC ve AR 76 20 20 02 [place] N 01 [...] PH AR JUANY CY #3 01 6 TR 50 06 [...] 80 4- 3- 00 01 UC ve AR 21 20 20 03 [place] DE 61 [...] 20 3- 3- 00 01 UC ve AR 76 20 20 02 [place] N 01 [...] ve G 79 20 20 97 [place] AR 75 17 17 10 X 9 96 CV 75 S -2 PH 5 AR KW MA IK CY PE N LL C, DB A CV S PH AR MA CY #3 01 6 AR 57 05 06 30 30 00 KE [...] PH AR MA CY #3 01 6 AR 57 04 05 30 30 00 KE [...] 20 3- 2- 00 00 UC ve AR 76 20 20 99 [place] N 01 [...] ve G 79 20 20 97 [place] AR 75 17 17 10 X 9 96 [...] PH AR MA CY #3 01 6 AR 57 03 04 30 30 00 KE [...] 20 7- 7- 00 00 UC ve AR 76 20 20 99 [place] N 01 [...] 44 7- 7- 00 26 UC ve AR 29 20 20 25 [place] DE 93 17 17 17 1 12 CL 40 IN IC MG PH TA AR BL MA ET CY SP 00 03 04 30 30 00 KE Ac IR 60 -1 -0 .0 05 NT ti ON 35 7- 7- 26 UC ve OL 76 20 20 25 [place] AC 42 17 17 17 TO 1 11 CL NE IN IC 50 PH MG AR MA TA CY BL ET FU 00 02 03 30 30 00 KE Ac RO 37 -1 -1 .0 00 NT ti SE 80 1- 0- 00 00 UC ve AR 20 20 20 97 [place] DE 81 [...] PH AR MA CY #3 01 6 HY 00 02 03 30 30 00 [...] 00 [place] RA 30 17 17 11 AR 5 65 CV DE S PH 10 AR MA MG CY TA LL BL C, ET DB A CV S PH AR MA CY #3 01 6 AR 57 02 02 30 30 00 KE [...] 80 1- 0- 00 00 UC ve AR 20 20 20 97 [place] DE 81 17 17 66 0 62 CV 20 S PH MG AR MA TA CY BL ET LL C, DB A CV S PH AR MA CY #3 01 6 ME 68 01 02 60 30 00 KE Ac TF 38 -1 -1 .0 00 NT ti OR 20 0- 0- 00 00 UC ve AR 76 20 20 99 [place] N 01 [...] ve G 79 20 20 97 [place] AR 75 16 17 10 X 9 96 [...] Comment ion Range Glucose 419 mg/dL 74-99 d-[facility] Results Labs Lab Lab Date Result Refere Interp Status Commen Order Detail nces retati t Range on Hgb A1c MFr Bld (05-08-2017 05:53) Hgb A1c 6.7 % 4.7-6.0 complet MFr 017 ed Bld 05:53 Path Rev Bld -Imp (05-08-2017 02:25) Path [id number] complet Rev Bld 017 04 ed -Imp 02:25 refer to patholo gy laborat ory SCT COPATH COPATH report to follow L Bacteria Ur Cult (05-08-2017 01:09) CC XXX NOTAP complet VC-aCnc 017 NOT ed 01:09 APPLICA BLE L Bacteri [id number] complet a XXX 017 06 No ed Anaerob 01:09 growth e+Aerob (qualif e Cult ier value) SCT NG1 NO GROWTH DAY 1. L Lactate Bld-sCnc (05-07-2017 23:23) Lactate 2.2 complet 017 mmol/L ed Bld-sCn 23:23 c Magnesium SerPl-nc (05-07-2017 23:23) Magnesi 2.2 1.9-2.4 complet um 017 mg/dL ed SerPl-m 23:23 Cnc Phosphate SerPl-mCnc (05-07-2017 23:23) Phospha 3.8 2.5-4.5 complet te 017 mg/dL ed SerPl-m 23:23 Cnc Hgb A1c MFr Bld (05-07-2017 23:23) Hgb A1c 6.8 % 4.7-6.0 complet MFr 017 ed Bld 23:23 Bacteria XXX Anaerobe+Aerobe Cult (05-07-2017 23:23) Bacteri [id number] complet a XXX 017 06 No ed [...] Lipase SerPl-cCnc (03-28-2017 17:12) Lipase 45 U/L complet SerPl-c 017 ed Cnc 17:12 Magnesium SerPl-mCnc (01-14-2017 02:39) Magnesi 1.8 1.9-2.4 complet um 017 mg/dL ed SerPl-m 02:39 Cnc Phosphate SerPl-mCnc (01-14-2017 02:39) Phospha 3.9 2.5-4.5 complet te 017 mg/dL ed SerPl-m 02:39 Cnc MDRO Wnd (01-12-2017 03:50) CC XXX NOTAP complet VC-aCnc 017 NOT ed 03:50 APPLICA BLE L Bacteri [id number] complet a XXX 017 00 not ed Anaerob 03:50 isolate e+Aerob d e Cult (qualif ier value) SCT NMDR NO MULTI DRUG RESISTA NT ORGANIS MS ISOLATE D L Lactate Bld-sCnc (01-12-2017 00:13) Lactate 4.2 complet 017 mmol/L ed Bld-sCn 00:13 c Lipase SerPl-cCnc (01-12-2017 00:13) Lipase 56 U/L complet SerPl-c 017 ed Cnc 00:13 Osmolality SerPl (12-17-2016 05:18) Osmolal 300 275-295 complet ity 017 mOsm/kg ed SerPl 05:18 Bacteria Ur Cult (12-16-2016 23:56) CC XXX NOTAP complet VC-aCnc 017 NOT ed 23:56 APPLICA BLE L Bacteri [id number] complet a XXX 017 1 ed Anaerob 23:56 Staphyl e+Aerob ococcus e Cult epiderm idis (organi sm) SCT SEPI STAPHYL OCOCCUS EPIDERM IDIS L Magnesium SerPl-mCnc (11-20-2016 03:42) Magnesi 1.5 1.9-2.4 complet um 017 mg/dL ed SerPl-m 03:42 Cnc Phosphate SerPl-mCnc (11-20-2016 03:42) Phospha 2.8 2.5-4.5 complet te 017 mg/dL ed SerPl-m 03:42 Cnc MDRO Wnd (11-18-2016 10:50) Bacteri [id number] complet a XXX 017 06 No ed [...] 02:12 Cnc Phosphate SerPl-mCnc (11-13-2016 02:12) Phospha 3.1 [...] NOT ed 17:16 APPLICA BLE L Bacteri [id number] complet a XXX 017 00 not ed [...] 05:43 c Lactate Bld-sCnc (11-10-2016 02:04) Lactate 1.6 complet 017 mmol/L ed Bld-sCn 02:04 c Magnesium SerPl-mCnc (11-10-2016 02:04) Magnesi 1.6 1.9-2.4 complet um 017 mg/dL ed SerPl-m 02:04 Cnc Phosphate SerPl-mCnc (11-10-2016 02:04) Phospha --2 2.6 2.5-4.5 complet te 017 mg/dL ed SerPl-m 02:04 Cnc Lactate Bld-sCnc (11-10-2016 01:41) Lactate 11-10-2 TCON complet 017 Multipl ed Bld-sCn 01:41 e SCM c orders. Tests consoli dated. L mmol/L Lactate Bld-sCnc (11-09-2016 21:24) Lactate 03-04-2 1.8 complet 017 mmol/L ed Bld-sCn 21:24 c Lactate Bld-sCnc (11-09-2016 18:05) Lactate 03-04-2 2.1 complet 017 mmol/L ed Bld-sCn 18:05 c Lactate Bld-sCnc (11-09-2016 13:59) Lactate 03-04-2 2.2 complet 017 mmol/L ed Bld-sCn 13:59 c Lactate Bld-sCnc (11-09-2016 10:36) Lactate --2 TCON complet 017 Multipl ed Bld-sCn 10:36 e SCM c orders. Tests consoli dated. L mmol/L Lactate Bld-sCnc (11-09-2016 10:36) Lactate 03-04-2 2.3 complet 017 mmol/L ed Bld-sCn 10:36 c Lactate Bld-sCnc (11-09-2016 06:35) Lactate 03-04-2 2.6 complet 017 mmol/L ed Bld-sCn 06:35 c Lactate Bld-sCnc (11-09-2016 01:58) Lactate 03-04-2 2.4 complet 017 mmol/L ed Bld-sCn 01:58 c Lactate Bld-sCnc (11-08-2016 22:53) Lactate 03-03-2 4.0 complet 017 mmol/L ed Bld-sCn 22:53 c Lactate Bld-sCnc (11-08-2016 18:52) Lactate 03-03-2 6.1 complet 017 mmol/L ed Bld-sCn 18:52 c Lactate Bld-sCnc (11-08-2016 14:07) Lactate 03-03-2 8.2 complet 017 mmol/L ed Bld-sCn 14:07 c Ketones SerPl-mCnc (11-08-2016 14:07) Ketones NEG NEGATIV complet 017 NEGATIV E ed SerPl-m 14:07 E L Cnc MDRO Wnd (11-08-2016 13:15) CC XXX NOTAP complet VC-aCnc 017 NOT ed 13:15 APPLICA BLE L Bacteri [id number] complet a XXX 017 00 not ed [...] NOT ed 05:05 APPLICA BLE L Bacteri [id number] complet a XXX 017 06 No ed Anaerob 05:05 growth e+Aerob (qualif e Cult ier value) SCT NG1 NO GROWTH DAY 1. L Bacteria XXX Anaerobe+Aerobe Cult (11-08-2016 05:05) Bacteri [id number] complet a XXX 017 06 No ed Anaerob 05:05 growth e+Aerob (qualif e Cult ier value) SCT NGB6 NO GROWTH DAY 5. L Bacteria Bro [facility] Aerobe Cult (11-08-2016 04:42) Bacteri [id number] complet a XXX 017 06 No ed [...] NOT ed 15:10 APPLICA BLE L Bacteri [id number] complet a XXX 017 06 No ed Anaerob 15:10 growth e+Aerob (qualif e Cult ier value) SCT NG4 NO GROWTH DAY 4. L Procedures Procedure DOS Code Location Performer Comment RADEX 43486 [place] ABDOMEN 1 7 MEDICAL SERV ANTEROPOS FOUNDATIO TERIOR N VIEW BLOOD 53755 [place] MATTHEW SMEAR 7 MEDICAL PERIPHERA SERV L INTERP FOUNDATIO PHYS N W/WRIT REPORT INITIAL [address]91 [place] [address] CLARISSA [facility] CARE/DAY PHYSICIAN CIARAALAL 70 SERVI MINUTES COMPREHEN 01776 [place] [facility] SIVE 7 [facility]ALTHCAR HEALTHCAR METABOLIC E E PANEL [facility] URNLS DIP 00768 [place] UK 7 HEALTHCAR HEALTHCAR STICK/TAB E E LET RGNT [facility] AUTO W/[place] [address] [place] LIPASE 7 HEALTHCAR HEALTHCAR E E [facility] BLOOD 86640 [place] [facility] COUNT 7 HEALTHCAR HEALTHCAR COMPLETE E E AUTOMATED [facility] ONDANSETR Q0162 [place] [facility] ON 1 MG 7 HEALTHCAR HEALTHCAR ORL NOT E E EXCEED 48 [facility] HR DOSE REG THERAPEUT 97336 [place] IC 7 HEALTHCAR HEALTHCAR PROPHYLAC E E TIC/DX HOSPITALS HOSPITALS INJECTION SUBQ/IM DIAB ONLY A5500 [facility] FIT CSTM 7 BRACE BRACE PREP&SPL PROSTH PROSTH SHOE MX INC INC DNSITY INSRT FOR DIAB A5513 [facility] ONLY MX 7 BRACE BRACE DNSITY PROSTH PROSTH INSRT INC INC CSTM MOLD CSTM EA OBSERVATI 14595 [facility] ON/INPATI 7 MEDICINE [facility] O C[place] [address] [place] [address] CN[facility] ABDOMEN & 7 RADIOLOGY III PELVIS W/O CONTRAST MATERIAL PROTHROMB 50766 DILEEP SORTOON IN TIME 7 [facility] BLOOD 09142 DILEEP FALK COUNT [address] [place] [address] HOSPITAL AUTOMATED COMPREHEN 82111 DILEEP FALK [address] [place] [address] DILEEP FALK AMMONIA [address] [place] [address] PROTHROMB 31876 DILEEP S[place]TOON IN TIME 7 [facility] GLUC BLD 73416 DILEEP SORTOON GLUC MNTR [address] [place] [address] HOSPITAL CLEARED FDA SPEC HOME USE OBSERVATI 29419 [facility] ON CARE 7 MEDICINE DISCHARGE SERVICES O MANAGEMEN T THROMBOPL 22872 DILEEP SORTOON ASTIN [address] [place] [address] PARTIAL PLASMA/WH OLE BLOOD GLUC BLD 28606 DILEEP SORTOON GLUC MNTR [address] [place] [address] HOSPITAL CLEARED FDA SPEC HOME USE BLOOD 72486 DILEEP FALK COUNT [address] [place] [address] HOSPITAL AUTO&[place] [address] DILEEP FALK AMMONIA [address] [place] [address] PROTHROMB 84995 DILEEP SORTOON IN TIME 7 [facility] COMPREHEN [address]34 DI[address]EP FALK [address] HOSPITAL PANEL COMPREHEN [address] [facility] PANEL URNLS DIP 12022 DILEEP FALK 7 [facility] HOSPITAL LET REAGENT AUTO MICROSCOP Y PROTHROMB 34748 DILEEP FALK IN TIME 7 [place] [address] DILEEP FALK AMMONIA 7 [facility] BLOOD 98856 DILEEP FALK COUNT 7 [facility] AUTO&AUTO DIFRNTL WBC INITIAL [address] [place] [address] MEDICINE ON SERVICES CARE/DAY O [address] [place] [address] DILEEP FALK LIPASE 7 [facility] BLD BANK 58485 [place] NICOLAS PHYS SVCS 7 MEDICAL DIFFC SERV CROSS FOUNDATIO MATCH&/EV N AL REP ESOPHAGOG 14918 [place] SUZAN ASTRODUOD 7 MEDICAL ENOSCOPY SERV TRANSORAL FOUNDATIO N DIAGNOSTI C ANES 52283 [place] ALMA UPPER GI 7 MEDICAL ENDOSCOPY SERVICES PROXIMAL TO DUODENUM INITIAL [address] CARE/DAY PHYSICIAN DECALVO 70 SERVI MINUTES BLD BANK 21821 [place] NICOLAS PHYS SVCS 7 MEDICAL DIFFC SERV CROSS FOUNDATIO MATCH&/EV N AL REP COMPREHEN 78622 DILEEP FALK SIVE 7 [facility] PANEL BLOOD 49631 DILEEP FALK COUNT 7 [facility] AUTOMATED RADIOLOGI 04561 CN[place]L [place] OLGA C EXAM 7 RADIOLOGY CHEST 2 VIEWS FRONTAL&L ATERAL DUP-SCAN 64905 [place] ROBERTH ARTL TIMOTHY 7 MEDICAL ABDL/PEL/ SERV SCROT&/RP FOUNDATIO R ORGN N COM ECG 35512 [place] NIESHA ROUTINE 7 MEDICAL ECG SERV W/LEAST FOUNDATIO 12 LDS N I&R ONLY RADIOLOGI 15564 [place] MERHAR C EXAM 7 MEDICAL CHEST 2 SERV VIEWS FOUNDATIO FRONTAL&L N ATERAL HOSPITAL 11751 [place] AVALLONE DISCHARGE 7 MEDICAL DAY SERV MANAGEMEN FOUNDATIO T > 30 N MIN DUP-SCAN 39769 [place] WEBBER ARTL TIMOTHY 7 MEDICAL ABDL/PEL/ SERV SCROT&/RP FOUNDATIO R ORGN N COM SBSQ 36090 [place] [facility] 7 MEDICAL CARE/DAY SERV 35 FOUNDATIO MINUTES N SWALLOWIN 28274 [place] DL G FUNCJ 7 MEDICAL W/CINERAD SERV IOGRAPY/V FOUNDATIO IDRADIOG N SBSQ 68888 [place] [facility] 7 MEDICAL CARE/DAY SERV 25 FOUNDATIO MINUTES N SBSQ 78199 [place] [facility] 7 MEDICAL CARE/DAY SERV 25 FOUNDATIO MINUTES N RADIOLOGI 47865 [place] LAYLA C 7 MEDICAL AYA EXAMINATI SERV ON CHEST FOUNDATIO SINGLE N VIEW FRONTAL ECG 00191 [place] BENSON ROUTINE 7 MEDICAL ECG SERV W/LEAST FOUNDATIO 12 LDS N I&R ONLY RADIOLOGI 84592 [place] ZEKE C 7 MEDICAL EXAMINATI SERV ON CHEST FOUNDATIO SINGLE N VIEW FRONTAL ECG 17012 [place] DAMIAN ROUTINE 7 MEDICAL ECG SERV W/LEAST FOUNDATIO 12 LDS N I&R ONLY RADIOLOGI 76664 [place] ALANIS C 7 MEDICAL EXAMINATI SERV ON CHEST FOUNDATIO SINGLE N VIEW FRONTAL CRITICAL 45217 [place] ALONDRA CARE 7 MEDICAL ILL/INJUR SERV ED FOUNDATIO PATIENT N INIT 30-74 MIN CRITICAL 11781 [place] ALONDRA CARE 7 MEDICAL ILL/INJUR SERV ED FOUNDATIO PATIENT N INIT 30-74 MIN RADIOLOGI 55630 [place] TREVON C 7 MEDICAL EXAMINATI SERV ON CHEST FOUNDATIO SINGLE N VIEW FRONTAL RADIOLOGI 02298 [place] ONEAL C 7 MEDICAL EXAMINATI SERV ON CHEST FOUNDATIO SINGLE N VIEW FRONTAL CRITICAL 35019 [place] ALONDRA CARE 7 MEDICAL ILL/INJUR SERV ED FOUNDATIO PATIENT N INIT 30-74 MIN RADEX 52664 [place] DL ABDOMEN 1 7 MEDICAL SERV ANTEROPOS FOUNDATIO TERIOR N VIEW COLONOSCO 95931 [place] SHEDLOFSK PY FLX DX 7 MEDICAL Y W/COLLJ SERV SPEC WHEN FOUNDATIO PFRMD N ESOPHAGOG 47977 [place] ESTHERLOMOEK ASTRODUOD 7 MEDICAL Y ENOSCOPY SERV TRANSORAL FOUNDATIO N DIAGNOSTI C RADEX 08763 [place] DL ABDOMEN 1 7 MEDICAL SERV ANTEROPOS FOUNDATIO TERIOR N VIEW CRITICAL 55961 [place] ALONDRA CARE 7 MEDICAL ILL/INJUR SERV ED FOUNDATIO PATIENT N INIT 30-74 MIN SBSQ 07508 [facility] 7 NURSE CARE/DAY PRACTITIO 25 NER GR MINUTES RADIOLOGI 36170 [place] TREVON C 7 MEDICAL EXAMINATI SERV ON CHEST FOUNDATIO SINGLE N VIEW FRONTAL DUP-SCAN 70730 [place] JESSICA ARTL TIMOTHY 7 MEDICAL ABDL/PEL/ SERV SCROT&/RP FOUNDATIO R ORGN N COM RADIOLOGI 21594 [place] TREVON C 7 MEDICAL EXAMINATI SERV ON CHEST FOUNDATIO SINGLE N VIEW FRONTAL CRITICAL 76124 [place] ALONDRA CARE 7 MEDICAL ILL/INJUR SERV ED FOUNDATIO PATIENT N INIT 30-74 MIN CRITICAL 17946 [place] ALONDRA CARE 7 MEDICAL ILL/INJUR SERV ED FOUNDATIO PATIENT N INIT 30-74 MIN RADIOLOGI 40925 [place] ONEAL C 7 MEDICAL EXAMINATI SERV ON CHEST FOUNDATIO SINGLE N VIEW FRONTAL SBSQ 44334 [facility] 7 NURSE CARE/DAY PRACTITIO 35 NER GR MINUTES ECG 22269 [place] BENSON ROUTINE 7 MEDICAL ECG SERV W/LEAST FOUNDATIO 12 LDS N I&R ONLY RADIOLOGI 99984 [place] RONAN C 7 MEDICAL EXAMINATI SERV ON CHEST FOUNDATIO SINGLE N VIEW FRONTAL RADIOLOGI 53291 [place] RONAN C 7 MEDICAL EXAMINATI SERV ON CHEST FOUNDATIO SINGLE N VIEW FRONTAL RADEX 58146 [place] JESSICA ABDOMEN 1 7 MEDICAL SERV ANTEROPOS FOUNDATIO TERIOR N VIEW ECG 41122 [place] BENSON ROUTINE 7 MEDICAL ECG SERV W/LEAST FOUNDATIO 12 LDS N I&R ONLY RADIOLOGI 11657 [place] WYNNE C 7 MEDICAL MONA EXAMINATI SERV ON CHEST FOUNDATIO SINGLE N VIEW FRONTAL AMB A0427 [facility] SERVICE 7 AMBULANCE AMBULANCE ALS SERVICE SERVICE EMERGENCY TRANSPORT LEVEL 1 INITIAL 92360 [facility] BHANU INPATIENT 7 NURSE CONSULT PRACTITIO CRUZ/MATTIE VALDOVINOS GR PT 80 MIN GROUND A0425 [facility] MILEAGE 7 AMBULANCE AMBULANCE PER SERVICE SERVICE STATUTE MILE D BANK 86940 [facility] VALENZUELA PHYS SVCS 7 MEDICAL AUTHJ SERV DEVIJ FOUNDATIO STANDARD N REPRT SERVICES 92774 [facility] PROVIDED 7 PHYSICIAN U BTW 10 S, PLLC PM&8 AM AT 24-HR FACI GROUND A0425 [facility] AMBULANCE PER SERVICE SERVICE STATUTE MILE AMB A0427 [facility] SERVICE 7 AMBULANCE AMBULANCE ALS SERVICE SERVICE EMERGENCY TRANSPORT LEVEL 1 CRITICAL 17656 [facility] CARE 7 PHYSICIAN U ILL/INJUR S, PLLC ED PATIENT INIT 30-74 MIN GROUND A0425 [facility] AMBULANCE AMBULANCE PER SERVICE SERVICE STATUTE MILE SERVICES 86758 [facility] PROVIDED 7 PHYSICIAN U BTW 10 S, PLLC PM&8 AM AT 24-HR FACI AMBULANCE A0429 [facility] SERVICE 7 AMBULANCE AMBULANCE [facility] SERVICE SERVICE EMERGENCY TRANSPORT RADIOLOGI 99679 [facility] EXAM 7 MEDICAL CHEST 2 IMAGING VIEWS ASS FRONTAL&L ATERAL GROUND A[address] [facility] MILEAGE 7 [facility] PER [facility] STATUTE EMS EMS MILE OBSERVATI 03789 [facility] ON CARE 7 MEDICINE A DISCHARGE SERVICES O MANAGEMEN T INITIAL 85627 [facility] OBSERVATI 7 MEDICINE A ON SERVICES CARE/DAY O 70 MINUTES RADIOLOGI 97687 [facility] [place] ANABELA C EXAM 7 RADIOLOGY CHEST 2 VIEWS FRONTAL&L ATERAL RADIOLOGI 77393 [facility] EXAM 7 MEDICAL CHEST 2 IMAGING VIEWS ASS FRONTAL&L ATERAL RADIOLOGI 41056 [place] [facility] C EXAM 7 MEDICAL CHEST 2 IMAGING VIEWS ASS FRONTAL&L ATERAL GROUND A0425 [facility] MILEAGE 7 AMBULANCE AMBULANCE PER SERVICE SERVICE [facility] A0427 [facility] SERVICE 7 AMBULANCE AMBULANCE ALS SERVICE SERVICE EMERGENCY TRANSPORT LEVEL 1 RADEX 85397 [facility] [place] SCALF MARILIN RIBS 6 RADIOLOGY UNILATERA L 2 VIEWS BLOOD 78391 DILEEP FALK COUNT 6 [facility] AUTOMATED PROTHROMB 51298 DILEEP FALK IN TIME 6 [facility] COLLECTIO 63133 [facility] FALK N VENOUS 6 [facility] VENIPUNCT URE COMPREHEN 04846 [facility] SIVE 6 [facility] PANEL RADEX 23651 [place] [place] LAYNE RIBS UNI 6 RADIOLOGY RHO W/POSTERO ANT [place] MINIM[address] [place] [address] [place] ABDOMEN & 6 RADIOLOGY RHO PELVIS W/O CONTRAST MATERIAL RADIOLOGI 03128 [facility] MATIAS C 6 CLARISSA EXAMINATI EMERGENCY ON CHEST PHYS SINGLE VIEW FRONTAL RADEX 80432 [facility] MATIAS RIBS 6 CLARISSA UNILATERA EMERGENCY L 2 VIEWS PHYS ECG 42108 [facility] ARNOLD ROUTINE 6 CLARISSA LAST ECG EMERGENCY W/LEAST PHYS 12 LDS I&R ONLY RADIOLOGI 95070 [facility] [place] LAYNE C 6 RADIOLOGY RHO EXAMINATI ON CHEST SINGLE VIEW FRONTAL ECG 50676 [place] DAMIAN LASHAWN ROUTINE 6 MEDICAL ECG SERV W/LEAST FOUNDATIO 12 LDS N I&R ONLY RADIOLOGI 48019 [place] DAGO HOGAN C EXAM 6 MEDICAL MARY KATE CHEST 2 SERV VIEWS FOUNDATIO FRONTAL&L N ATERAL HEMOGLOBI 41511 S JIM N 6 NURSE REGINALD GLYCOSYLA PRACTITIO DANE A1C NER GR POLYSOM 36835 LINDA GALLO GALLO LINDA 6/>YRS 6 MD SLEEP 4/> CONSULTIN ADDL G SRV SYBIL ATTND MRI 97201 [place] BURGOS JENNIFER ABDOMEN 6 MEDICAL W/O & SERV W/CONTRAS FOUNDATIO T N MATERIAL POLYSOM 80233 DILEEP FALK 6/>YRS 6 [facility] SLEEP 4/> HOSPITAL HOSPITAL ADDL SYBIL ATTND PROTHROMB 73422 DILEEP FALK IN TIME 6 [facility] BLOOD 74242 DILEEP FALK COUNT 6 [facility] AUTOMATED COMPREHEN 37279 DILEEP FALK SIVE 6 [facility] PANEL COLLECTIO 98932 DILEEP FALK N VENOUS 6 [facility] VENIPUNCT URE ECHO 32642 LINDA GALLO GALLO LINDA TTHRC R-T 6 2D CONSULTIN W/WOM-MOD G SRV E COMPL SPEC&COLR D COLLECTIO 72251 MANUEL ARNDT JAMIE N VENOUS 6 FAMILY BLOOD PHYSICIAN VENIPUNCT S PLLC URE COMPREHEN 39275 [address] PATH SIVE 6 [facility] PANEL INITIAL 60267 [facility] DIAZ OBSERVATI 6 CLARISSA ISIDRA ON PHYSICIAN CARE/DAY SERVI 30 MINUTES RADIOLOGI 84832 [facility] [place] SHAY C 6 RADIOLOGY III MARY KATE EXAMINATI ON CHEST SINGLE VIEW FRONTAL RADIOLOGI 73698 [facility] SWINEY C 6 CLARISSA PAT EXAMINATI EMERGENCY ON CHEST PHYS SINGLE VIEW FRONTAL ECG 34849 [facility] SWINEY ROUTINE 6 CLARISSA PAT ECG EMERGENCY W/LEAST PHYS 12 LDS I&R ONLY RADIOLOGI 53546 [facility] [place] SCALF MARILIN C EXAM 6 RADIOLOGY CHEST 2 VIEWS FRONTAL&[place] [address] [facility] UNIVERS FREE 6 Y Y THYROXINE [facility]OSPITAL CERULOPLA 64824 [facility] UNIVERS SMIN 6 [place] [address] [facility] FOLIC 6 Y Y ACID [place] [facility] [place] [address] [facility] IRON 6 Y Y HOSPITAL HOSPITAL LACTATE 51333 [facility] DEHYDROGE 6 Y Y NASE LDH [facility] BLOOD 62167 [facility] UNIVERS COUNT 6 Y Y RETICULOC [facility] YTES AUTO 1/> [place] [address] [facility] GAMMAGLOB 6 Y Y ULIN IGA [facility] IGD IGG IGM EACH COLLECTIO 48858 [facility] N VENOUS 6 Y Y BLOOD [facility] VENIPUNCT URE HEPATITIS 97840 [facility] B SURF 6 Y Y ANTIBODY [facility] HBSAB COLD 35108 [facility] AGGLUTINI 6 Y Y N TITER [facility]OSPITAL HEPATITIS 43597 [facility] A 6 Y Y ANTIBODY [facility] [place] [address] [facility] FERRITIN 6 Y Y [facility] IMMUNOASS 13962 [facility] AY 6 Y Y ANALYTE [facility] QUAL/SEMI QUAL MULTIPLE STEP GENERAL 55811 [facility] HEALTH 6 Y Y PANEL [facility] ANTINUCLE 42392 [facility] AR 6 Y Y ANTIBODIE [facility] [place] [address] [facility] HAPTOGLOB 6 Y Y IN [facility] [place] [address] [place] SCALF MARILIN ABDOMEN & 5 RADIOLOGY PELVIS W/CONTRAS T MATERIAL ESOPHAGOG 12772 DAYNA TURNER ASTRODUOD [address] [place] [address] GRE ENOSCOPY PHYSICIAN TRANSORAL PRA DIAGNOSTI C ANES 45155 [place] DEPA RAY UPPER GI 5 ANESTHESI ENDOSCOPY [place] [address] [place] LAYNE ABDOMEN & 5 RADIOLOGY RHO PELVIS W/O CONTRAST MATERIAL ONDANSETR Q0162 DILEEP FALK ON [address] [place] [address] [facility] EXCEED 48 HR DOSE REG RADIOLOGI 66594 [place] [place] LAYNE C 5 RADIOLOGY RHO EXAMINATI ON CHEST SINGLE VIEW FRONTAL IAADIADOO [address] [facility] COMPREHEN 24158 MACARIOJOCELYNN DILEEP SIVE [address] [place] [address] PANEL URNLS DIP 36129 [facility]ITAL[facility] MACARIO[address] STICK/TAB HOSPITAL HOSPITAL [place] [address] DILEEP FALK AMYLASE 5 [facility] RADEX 01414 [place] LYANE SPINE 5 RADIOLOGY RHO LUMBOSACR AL 2/3 VIEWS HI OSM Q9963 DILEEP FALK CONTRST [address] [facility] 350-399 MG/[place] [address] DILEEP FALK LIPASE 5 [facility] GLUC BLD 99885 DILEEP FALK GLUC MNTR 5 [facility] CLEARED FDA SPEC HOME USE BLOOD 53634 DILEEP FALK COUNT [address] [place] [address] AUTO&AUTO DIFRNTL WBC COLLECTIO 05066 DILEEP FALK N VENOUS [address] [place] [address] VENIPUNCT URE COLLECTIO 72418 [facility]ITAL[facility] GALOCHILDREN'[facility]OSPITAL[facility]OCELYNN N VENOUS [address] [place] [address] VENIPUNCT URE URNLS DIP 06543 [facility]NN FALK [address] [place] [address] STICK/TAB HOSPITAL HOSPITAL LET REAGENT AUTO MICROSCOP Y COMPREHEN 47767 [facility]NN FALK [address] [place] [address] DILEEP FALK LIPASE [address] [place] [address] BLOOD 16739 IVOR DILEEP COUNT [address] [place] [address] AUTO&AUTO DIFRNTL WBC INJECTION J1885 [facility] IRAJ[address] KETOROLAC [facility] HOSPITAL TROMETHAM INE PER 15 MG INJECTION J2405 [facility] 5 Y Y [facility] ON HCL PER 1 MG BLOOD 68426 [facility] UNIVERSIT COUNT 5 Y Y [facility] H[facility]PITAL AUTO&[place] [address] [facility] LIPASE 5 [place] [address] [facility] LACTATE 5 Y Y HOSPITAL HOSPITAL COMPREHEN 92514 [facility] 5 Y Y [facility] [place] [address] [facility] ABDOMINAL 5 Y Y REAL HOSPITAL HOSPITAL TIME W/IMAGE DOCUMENTA TION THER 17497 [facility] PROPH/DX 5 Y Y NJX IV [facility] HOSPITAL PUSH SINGLE/1S T SBST/[place] [address] [place] ABDOMINAL 5 RADIOLOGY RHO [place] TIME W/[place] [address] [facility] ABDOMINAL 5 [facility] TIME W/IMAGE DOCUMENTA TION INJECTION J[address] JEANNINE UP TO 4 MG INJECTION J2405 [address] ON HCL PER 1 MG HOSPITAL [address] [place] [address] CLARISSA EDGAR IGN DAY PHYSICIAN MANAGEMEN SERVI T 30 MIN/< SBSQ 93269 [place] [address] CLARISSA HUG CARE/DAY PHYSICIAN 25 SERVI MINUTES SBSQ 63821 [place] [address] CLARISSA HUG CARE/DAY PHYSICIAN 35 SERVI MINUTES INITIAL 56000 [place] [address] CLARISSA A GOP CARE/DAY PHYSICIAN [address] [place] [address] [place] WEBBER ABDOMEN & 5 RADIOLOGY RAY PELVIS W/O CONTRAST MATERIAL COLLECTIO 77948 MANUEL GREEN JAMIE N VENOUS 5 FAMILY BLOOD PHYSICIAN VENIPUNCT S PLL URE COMPREHEN [address] SIVE 5 GROUP GROUP METABOLIC LABS [facility] PANEL BLOOD [address] COUNT 5 GROUP GROUP COMPLETE LABS [facility] AUTO&AUTO DIFRNTL WBC HEMOGLOBI 54725 [address] N 5 GROUP GROUP GLYCOSYLA LABS [facility] LAB[facility] DANE A1C CYANOCOBA 69020 PATH PATH NAHOMI 5 GROUP GROUP VITAMIN LABS [facility] LAB[facility] B-12 [place] [address] DILEEP FALK LIPASE [address] [place] [address] GLUC BLD 75745 DILEEP FALK GLUC MNTR [address] [place] [address] CLEARED FDA SPEC HOME USE COMPREHEN 33092 DILEEP FALK SIVE [address] [place] [address] HOSPITAL PANEL COLLECTIO 50078 DILEEP MACARIOJOCELYNN N VENOUS [address] [place] [address] VENIPUNCT URE INITIAL 65943 [facility] 5 CLARISSA EDGAR IGN ON PHYSICIAN CARE/DAY SERVI 70 MINUTES COMPREHEN 17401 [facility] SIVE [address] [place] [address] HOSPITAL HOSPITAL PANEL GLUC BLD 69321 [facility] GLUC MNTR 5 [facility] CLEARED FDA SPEC HOME USE BLOOD 26136 IVOR BRANDAN PET COUNT 5 [facility] AUTOMATED PRESSURIZ 20760 [facility] ED/NONPRE [address] [place] [address] SSURIZED [facility] HOSPITAL INHALATIO N TREATMENT NONINVASI 52287 [facility] VE [address] [place] [address] E[facility]ULSE [facility] HOSPITAL OXIMETRY SINGLE DETER GENERAL [address] [place] [address] [facility] AMYLASE [address] [place] [address] HOSPITAL RADIOLOGI 96993 [facility] C EXAM [address] [place] [address] CHEST 2 [facility] HOSPITAL VIEWS FRONTAL&L ATERAL GLUC BLD 84296 [facility] GLUC MNTR 5 [facility] CLEARED FDA SPEC HOME USE NATRIURET 21848 [facility] IC [address] [place] [address] HOSPITAL HOSPITAL G0378 [facility] [address] ON HOSPITAL HOSPITAL SERVICE PER HOUR IAADIADOO [address] [facility] [address] [facility] LIPASE [address] [place] [address] HOSPITAL URNLS DIP [address] STICK[facility]TAB HOSPITAL HOSPITAL LET REAGENT AUTO MICROSCOP Y CULTURE 81195 [facility] BACTERIAL [address] [place] [address] BLOOD [facility] HOSPITAL AEROBIC W/ID ISOLATES IAADIADOO [address] [facility] CCUS GROUP A HEMOGLOBI 78492 [facility] JOSE ANTONIO LUISA N 4 NURSE PETER VELA A1C NER GR IM ADM 30254 [facility] PRQ ID 4 DISTRICT DISTRICT SUBQ/IM HLTH DEPT HLTH DEPT NJXS EA RESHMA RESHMA VACCINE HEPA 87656 [facility] VACCINE 4 [facility] DISTRICT ADULT HLTH DEPT HLTH DEPT DOSE FOR RESHMA RESHMA INTRAMUSC ULAR USE IM ADM 87101 [facility] PRQ ID 4 [facility] DISTRICT SUBQ/IM HLTH DEPT HLTH DEPT NJXS 1 RESHMA RESHMA VACCINE HEPB 00725 [facility] VACCINE 4 [facility] DISTRICT ADULT 3 HLTH DEPT HLTH DEPT DOSE RESHMA RESHMA SCHEDULE FOR IM USE RADEX 38931 [facility] [place] ABDOMEN 4 RADIOLOGY RHO COMPL W/DCBTS&/ ERC VIEWS DXA BONE 43728 [place] DENSITY 4 [facility] STUDY 1/> HOSP[place] [address] [place] ABDOMINAL 4 [facility] TIME W/IMAGE DOCUMENTA TION COMPRE 04236 [place] [facility] SET AUDIOMETR 4 PHYSICIAN Y PRACTICE THRESHOLD L EVAL SP RECOGNIJ TYMPANOME 50174 [place] [facility] SET TRY 4 PHYSICIAN PRACTICE L HEPATITIS 72070 [facility] Y Y ANTIBODY [facility] HEPATITIS 64[facility] Y Y ANTIBODY [facility] HAAB PROTHROMB 89184 [facility] IN TIME 4 Y Y HOSPITAL HOSPITAL Encounters Encounter Start End Date Code Location Performer Type Date EMERGENCY 17771 [facility] DEPT 7 7 [place] VISIT EMERGENCY HIGH PHYS SEVERITY& THREAT FUN EMERGENCY 49879 [facility]NOTE 3] 7 7 [place] DEPARTMEN EMERGENCY T VISIT PHYS HIGH/URGE NT SEVERITY EMERGENCY 80173 [facility] 7 7 MEDICAL VISIT SERV HIGH FOUNDATIO SEVERITY& N THREAT [facility] - 7 7 [facility]PATIEN [facility] T HOSPITALS EMERGENCY 76567 [facility] 7 7 MEDICAL M DEPARTMEN SERV T VISIT FOUNDATIO HIGH/URGE N NT SEVERITY EMERGENCY 49411 [facility] DEPT 7 7 [place] VISIT EMERGENCY HIGH PHYS SEVERITY& THREAT [facility] - 7 7 [facility] - 7 7 [facility] 26781 [facility] 7 [facility]OSPITAL HIGH SEVERITY& THREAT FUNJ EMERGENCY 36502 [facility] 7 7 MEDICAL VISIT SERV HIGH FOUNDATIO SEVERITY& N THREAT FUNJ OFFICE 07870 [facility] 7 7 FAMILY T VISIT PHYSICIAN 15 S PLLC MINUTES EMERGENCY 97091 [facility] 7 7 [facility] DEPARTMEN EMERGENCY T VISIT PHYS HIGH/URGE NT SEVERITY [facility] - 7 7 [facility]ALS EMERGENCY 72397 [facility] 7 7 MEDICAL VISIT SERV HIGH FOUNDATIO SEVERITY& N THREAT [facility] IV[facility] - 7 7 [facility] T EMERGENCY 91185 [facility]NOTE 3] 7 7 [place] DEPARTMEN EMERGENCY T VISIT PHYS HIGH/URGE NT SEVERITY EMERGENCY 11226 [facility] DEPT 7 7 [place] VISIT EMERGENCY HIGH PHYS SEVERITY& THREAT FUNJ EMERGENCY 33824 [facility] DEPT 7 7 PHYSICIAN U VISIT S, PLLC HIGH SEVERITY& THREAT FUNCJ OFFICE 00226 [facility] 7 7 MEDICAL ION SERV NEW/ESTAB FOUNDATIO PATIENT N 80 MIN EMERGENCY 89142 [facility] 7 7 MEDICAL DEPARTMEN SERV T VISIT FOUNDATIO MODERATE N SEVERITY EMERGENCY 51155 [facility] GEREMIAS DEPT 7 7 [place] VISIT EMERGENCY HIGH PHYS SEVERITY& THREAT FUNJ EMERGENCY 06201 [facility] CHESTNUT 6 6 [place] DEPARTMEN EMERGENCY T VISIT PHYS HIGH/URGE NT SEVERITY EMERGENCY 31473 [facility] SWINEY 6 6 [place] PAT DEPARTMEN EMERGENCY T VISIT PHYS HIGH/URGE NT SEVERITY [facility] T OFFICE 29234 MANUEL AYALA OUTPATIEN 6 6 FAMILY T VISIT PHYSICIAN 15 S PLLC MINUTES EMERGENCY 60162 [facility] MATIAS DEPT 6 6 [place] VISIT EMERGENCY HIGH PHYS SEVERITY& THREAT FUNCJ EMERGENCY 42283 [facility] ARNOLD DEPT 6 6 [place] LAST VISIT EMERGENCY HIGH PHYS SEVERITY& THREAT FUNCJ EMERGENCY [address] [place] [address] 6 6 MEDICAL DEPARTMEN SERV T VISIT FOUNDATIO LOW/MODER N SEVERITY OFFICE 29947 [facility] 6 6 NURSE REGINALD T VISIT PRACTITIO 25 NER GR MINUTES EMERGENCY 16821 [facility] 6 6 CLARISSA PAT DEPARTMEN EMERGENCY T VISIT PHYS HIGH/URGE NT SEVERITY [facility] 6 [facility] T OFFICE 93566 [facility] 6 6 FOOT & T NEW 30 ANKLE CE MINUTES OFFICE 87942 MANUEL AYALA OUTPATIEN 6 6 FAMILY T VISIT PHYSICIAN 15 S PLLC MINUTES EMERGENCY 12977 [facility] 6 6 MEDICAL DEPARTMEN SERV T VISIT FOUNDATIO MODERATE N SEVERITY EMERGENCY 34146 [facility] DEPT 6 6 CLARISSA KATHY VISIT EMERGENCY HIGH PHYS SEVERITY& THREAT FUNCJ OFFICE 87615 MANUEL AYALA OUTPATIEN 6 6 FAMILY T VISIT PHYSICIAN 25 S PLLC MINUTES EMERGENCY 45774 [facility] 6 6 CLARIS[place] PAT VISIT EMERGENCY HIGH PHYS SEVERITY& THREAT FUNCJ EMERGENCY 96360 [facility] DEPT 6 6 CLARISSA KATHY VISIT EMERGENCY HIGH PHYS SEVERITY& THREAT FUNCJ OFFICE 98536 [facility] 6 6 Y OF RTHY JERRY [facility]ES OFF[facility] 28680 MANUEL GREEN JAMIE OUTPATIEN 6 6 FAMILY T VISIT PHYSICIAN 15 S PLLC MINUTES EMERGENCY 72925 [facility] 6 6 CLARISSA PAT DEPARTMEN EMERGENCY T VISIT PHYS HIGH/URGE NT SEVERITY HOSPITAL [facility] - 6 6 Y [facility] T OFFICE 22939 [facility]UEL [facility] OUTPATIEN 5 5 FAMILY T VISIT PHYSICIAN 15 S PLLC MINUTES OFFICE 98935 [facility] FAMILY T VISIT PHYSICIAN 25 S PLLC MINUTES OFFICE 41535 [facility] FAMILY T VISIT PHYSICIAN 15 S PLLC MINUTES [facility] 5 [facility] T EMERGENCY 89621 [facility] 5 5 [facility] T VISIT HIGH/URGE NT SEVERITY EMERGENCY 52133 [facility] DEPT 5 5 CLARISSA COLLINS VISIT EMERGENCY HIGH PHYS SEVERITY& THREAT FUNCJ [facility] 5 [facility] T EMERGENCY 64133 [facility] 5 5 [facility] T VISIT HIGH/URGE NT SEVERITY HOSPITAL [facility] - 5 5 [facility] T EMERGENCY 75074 [facility] 5 5 [facility] SERV T VISIT FOUNDATIO MODERATE N SEVERITY EMERGENCY [address] [facility] T VISIT HIGH/URGE NT SEVERITY [facility] [place] - 5 5 [facility] T OFFICE 63660 MANUEL AYALA OUTPATIEN 5 5 FAMILY T VISIT PHYSICIAN 25 S PLLC MINUTES [facility] [place] - 5 5 [facility] T EMERGENCY 79105 [facility] BAB 5 5 CLARISSA DEPARTMEN EMERGENCY T VISIT PHYS HIGH/URGE NT SEVERITY EMERGENCY 14590 [place] 5 5 [facility] T VISIT MODERATE SEVERITY OFFICE 48341 MANUEL AYALA OUTPATIEN 5 5 FAMILY T VISIT PHYSICIAN 15 S PLLC MINUTES EMERGENCY 91027 [facility]] DEPT 5 5 CLARISSA COLLINS VISIT EMERGENCY HIGH PHYS SEVERITY& THREAT FUN [facility] [place] - 5 5 [facility] OFFICE 06652 MANUEL AYALA OUTPATIEN 5 5 FAMILY T VISIT PHYSICIAN 15 S PLLC MINUTES [facility] [place] - 5 5 [facility] T EMERGENCY 41909 [facility] 5 5 CLARISSA PAT DEPARTMEN EMERGENCY T VISIT PHYS HIGH/URGE NT SEVERITY EMERGENCY 58241 [place] 5 5 [facility] T VISIT MODERATE SEVERITY OFFICE 87096 MANUEL AYALA OUTPATIEN 5 5 FAMILY T VISIT PHYSICIAN 15 S PLLC MINUTES [facility] [place] - 5 5 [facility] T EMERGENCY 56238 [facility] HIGH SEVERITY& THREAT FUNJ OFFICE 69910 [facility] JO[facility] ANTONIO LUISA OUTPATIEN 4 4 NURSE T NEW 45 PRACTITIO MINUTES NER GR OFFICE 99327 MANUEL AYALA OUTPATIEN 4 4 FAMILY T VISIT PHYSICIAN 15 S PLLC MINUTES OFFICE 42318 MANUEL AYALA OUTPATIEN 4 4 FAMILY T VISIT PHYSICIAN 25 S PLLC MINUTES EMERGENCY 75722 [facility] DEPT 4 4 CLARISSA MU VISIT EMERGENCY HIGH PHYSI SEVERITY& THREAT [facility] T OFFICE 37918 [facility] PHYSICIAN LES T VISIT PRACTICE 15 L MINUTES [facility] 4 4 [facility] T OFFICE 48959 [facility] 4 4 MEDICAL BELLA T VISIT SERV 25 FOUNDATIO MINUTES N OFFICE 18114 DILEEP [facility] 4 4 PHYSICIAN KALI ION PRACTICE NEW/ESTAB L PATIENT 40 MIN OFFICE 78367 MANUEL AYALA OUTPATIEN 4 4 FAMILY T VISIT PHYSICIAN 15 S PLLC MINUTES
--- OUTSIDE RECORDS SUMMARY | 2017-06-14 14:11 | External Medical Summary Rpt ---
Author Author , UNIQUE CALHOUN Address Unknown Phone [email or web address] Providers Care Mental Health Program Specialist Name Role Phone SIMONE CHICHI, SIMONE CHICHI Unavailable Unavailable ARNOLD, ARNOLD Unavailable Unavailable ARNOLD LAST, ARNOLD Unavailable Unavailable LAST EDUARDO LES, EDUARDO Unavailable Unavailable LES LAYTON, LAYTON Unavailable Unavailable AVALLONE, AVALLONE Unavailable Unavailable BEINEKE, BEINEKE Unavailable Unavailable PULIDO, PULIDO Unavailable Unavailable [facility] Unavailable Unavailable HOSPITAL, [facility] PHYSICIAN Unavailable Unavailable PRACTICE L, [facility] [facility] Unavailable Unavailable [facility] Unavailable Unavailable SERVICE, [facility] BRIAN, Unavailable Unavailable BRIAN MICHAEL [...] Unavailable SERVICES O, [facility] CATTLE STICKER, CATTLE STICKER Unavailable Unavailable SHAY MOSES, SHAY Unavailable Unavailable III SHAY III MARY KATE, Unavailable Unavailable SHAY III MARY KATE [facility] Un[facility] Unavailable GROUP PS, [facility] Unavailable Unavailable [facility], [facility] MATTHEW, MATTHEW Unavailable Unavailable [...] CONSULTING SRV, LINDA GALLO MD CONSULTING SRV [facility] Unavailable Unavailable EMS, [facility] Unavailable Unavailable EMS, [facility] Unavailable Unavailable PHYSICIANS [facility], [facility], Unavailable Unavailable PLL, [facility], [facility], Unavailable Unavailable [...] Unavailable Unavailable SHEDLOFSKY, Unavailable Unavailable SHEDLOFSKY WELLER KTAHY, WELLER Unavailable Unavailable KATHY SOKAN, SOKAN Unavailable Unavailable SOKAN BAB, SOKAN BAB Unavailable Unavailable SOTINGEANU, Unavailable Unavailable [facility] Unavailable Unavailable PHYSICIAN SERVI, [facility]IAN SERVI WEBBER, WEBBER Unavailable Unavailable WEBBER RAY, WEBBER Unavailable Unavailable RAY SWINEY PAT, SWINEY Unavailable Unavailable PAT FLORENCIO TER, FLORENCIO TER Unavailable Unavailable [facility] Unavailable Unavailable [facility]PITALS, [facility], Unavailable Unavailable [facility] Unavailable Unavailable [facility] BRENNAN MARY KATE, BRENNAN Unavailable Unavailable MARY KATE JIM REGINALD, JIM Unavailable Unavailable REGINALD ALANIS, ALANIS Unavailable Unavailable [facility] Unavailable Unavailable DEPT [facility], [facility] Unavailable Unavailable DEPT [facility], [facility] DEPT RESHMA NICOLAS VALENZUELA Unavailable Unavailable ZAGUROVSKAYA, Unavailable Unavailable ZAGUROVSKAYA OLGA, OLGA Unavailable Unavailable Purpose Continuity of Care Document - 06-16-2014 through 2016 Problems Code Diagnosis DOS Provider Status D539 NUTRITIONAL 05-08-2017 [facility] UNSPECIFIED [facility]ATION D696 THROMBOCYTO 05-08-2017 [facility] PENIA [facility] UNSPECIFIED FOUNDATION R109 UNSPECIFIED 05-08-2017 [facility] ABDOMINAL SERV PAIN [facility]OUNDATION R140 ABDOMINAL 05-08-2017 [facility] DISTENSION SERV GASEOUS FOUNDATION K7581 NONALCOHOLI [...] O FAILURE WITHOUT COMA R51 HEADACHE 02-14-2017 [facility] Z794 DIRECTOR EQUIPMENT 02-14-2017 [place] CURRENT USE [facility] Z7984 DIRECTOR EQUIPMENT 02-14-2017 [place] USE OF ORAL [facility] HYPOGLYCEMI C DRUGS Z9119 PATIENTS 02-14-2017 [place] NONCOMPLIAN [facility] CE W/OTH HOSPITAL MED TX & [...] FAMILY MELLITUS PHYSICIANS [place] S19453 PAIN IN 01-29-2017 [facility] RIGHT [facility]OT [facility] C88657 PAIN IN 01-29-2017 [facility] LEFT FOOT [facility] R600 LOCALIZED 01-26-2017 [facility] [...] index (BMI) 34.0-34.9, adult D62 ACUTE 01-15-2017 [facility] POSTHEMORRH SERVICES AGIC ANEMIA K209 ESOPHAGITIS 01-15-2017 [facility] UNSPECIFIED K921 MELENA 01-15-2017 [facility] D509 IRON 01-12-2017 [facility] DEFICIENCY N PHYSICIAN ANEMIA SERVI UNSPECIFIED I160 HYPERTENSIV 01-12-2017 [facility] E URGENCY N PHYSICIAN SERVI K219 GASTRO-ESOP 01-12-2017 [facility] H REFLUX N PHYSICIAN DISEASE SERVI WITHOUT ESOPHAGITIS N179 ACUTE 01-12-2017 [facility] UNSPECIFIED Z7682 AWAITING 01-12-2017 [facility] STATUS M61356 EFFUSION 12-27-2016 [facility] RIGHT ANKLE N EMERGENCY PHYS F14678 EFFUSION 12-27-2016 [facility] LEFT ANKLE N EMERGENCY [...] R11.0 Nausea 12-16-2016 R079 CHEST PAIN 12-16-2016 [facility] UNSPECIFIED SERV FOUNDATION R1084 GENERALIZED 12-16-2016 [facility] ABDOMINAL SERV PAIN [facility]OUNDATION R9431 ABNORMAL 12-16-2016 [facility] ELECTROCARD SERV IOGRAM FOUNDATION D68.9 Coagulation [...] FOUNDATION SPECIAL EXAMINATION S K228 OTHER 11-21-2016 [facility] SPECIFIED SERV DISEASES OF FOUNDATION ESOPHAGUS R490 DYSPHONIA 11-21-2016 [facility] C67133P OTH FORGEN 11-20-2016 [place] [facility] OBJ RESP [...] FINDING OF LUNG FIELD Z4682 ENCOUNTER 11-17-2016 [facility] FITTING & SERV ADJUST FOUNDATION NON-VASCULA R CATHETER I2119 ST 11-16-2016 [facility] ELEVATION SERV OR INVOLV FOUNDATION OT CORONARY ART INF WALL [...] J9811 ATELECTASIS 11-13-2016 [facility] A0090PL OTHER 11-13-2016 [facility] POSTPROCEDU SERV RAL SHOCK FOUNDATION SUBSEQUENT ENCOUNTER R0989 OTH SPEC SX 11-12-2016 [facility] & SIGNS SERV INVLV THE FOUNDATION CIRC & RESP SYS E11.9 Type 2 11-11-2016 diabetes mellitus without complicatio ns K74.69 Other 11-11-2016 cirrhosis of liver R10.9 Unspecified 11-11-2016 abdominal pain E806 OTHER 11-11-2016 [facility] DISORDERS SERV OF FOUNDATION BILIRUBIN METABOLISM E872 ACIDOSIS 11-11-2016 [facility] E876 HYPOKALEMIA 11-11-2016 [facility] I4891 UNSPECIFIED 11-11-2016 [facility] ATRIAL SERV FIBRILLATIO FOUNDATION N I959 HYPOTENSION 11-11-2016 S NURSE PRACTITIONE UNSPECIFIED R GR J849 INTERSTITIA 11-11-2016 [facility] L PULMONARY SERV DISEASE FOUNDATION UNSPECIFIED J984 OTHER 11-11-2016 [facility] DISORDERS SERV OF LUNG FOUNDATION Z452 ENCOUNTER 11-09-2016 [facility] ADJUSTMENT& SERV MGMT FOUNDATION VASCULAR ACCESS DEVICE E875 HYPERKALEMI 11-08-2016 [facility] NURSE Javy BREANNA Whitney GR I459 CONDUCTION 11-08-2016 [facility] DISORDER SERV UNSPECIFIED FOUNDATION K920 HEMATEMESIS 11-08-2016 AC L[facility] K8020 CALCULUS GB 11-07-2016 [facility] W/O SERV CHOLECYSTIT FOUNDATION IS W/O OBSTRUCTION R188 OTHER 11-07-2016 [facility] ASCITES SERV FOUNDATION Z8719 PERSONAL 11-07-2016 [facility] HISTORY SERV OTHER FOUNDATION DISEASES DIGESTIVE SYSTEM R0602 SHORTNESS 11-06-2016 [facility] R531 WEAKNESS 11-06-2016 AC L[facility] M542 CERVICALGIA 10-21-2016 [facility] M6281 MUSCLE 10-21-2016 [facility] EMS R1030 LOWER 10-21-2016 [facility] ABDOMINAL SERV PAIN FOUNDATION UNSPECIFIED R05 COUGH 10-09-2016 [facility] [place] RADIOLOGY J189 PNEUMONIA 09-22-2016 [facility] UNSPECIFIED MEDICAL ORGANISM IMAGING ASS Z09 ENC F/U 09-22-2016 [place] EXAM AFTR MEDICAL CMPL TX OTH IMAGING ASS THAN MALIG NEOPLSM R509 FEVER 09-19-2016 [place] UNSPECIFIED [facility]ICAL IMAGING ASS H1133 CONJUNCTIVA 07-28-2016 [facility] HEMORRHAGE PHYS BILATERAL R030 ELEVATED 07-28-2016 [facility] BLOOD-PRESS N EMERGENCY URE READING PHYS WITHOUT DX HTN R0789 OTHER CHEST 07-28-2016 [facility] PAIN N EMERGENCY PHYS S045AUW OTHER 07-28-2016 [facility] [place] SPECIFIED RADIOLOGY INJURIES THORAX INITIAL ENC H1032 UNSPECIFIED 07-24-2016 [facility] CONJUNCTIVI PHYSICIANS TIS LEFT [facility] H1132 CONJUNCTIVA 07-22-2016 [facility] EMERGENCY HEMORRHAGE PHYS LEFT EYE S532DXV CONTUSION 07-22-2016 [facility] OF N EMERGENCY ABDOMINAL PHYS WALL INITIAL ENCOUNTER E8342 HYPOMAGNESE 07-01-2016 [facility] TONI N EMERGENCY PHYS G0430 ACUTE 07-01-2016 [facility] NECROTIZING N EMERGENCY PHYS HEMORRHAGIC ENCEPHALOPA THY UNS R1110 VOMITING 06-28-2016 [facility] UNSPECIFIED SERV FOUNDATION G4710 HYPERSOMNIA 06-11-2016 LINDA GALLO MD UNSPECIFIED CONSULTING SRV D490 NEOPLASM OF 06-07-2016 [facility] UNS SERV BEHAVIOR FOUNDATION DIGESTIVE SYSTEM K766 PORTAL 06-07-2016 [facility] HYPERTENSIO SERV N FOUNDATION R161 SPLENOMEGAL 06-07-2016 [place] [facility] Y NOT SERV ELSEWHERE FOUNDATION CLASSIFIED G479 SLEEP 06-03-2016 [place] DISORDER [facility] R0683 SNORING 06-03-2016 [facility] R5383 OTHER 06-03-2016 [facility] E76927 PAIN IN 05-20-2016 [place] UNSPECIFIED FOOT & LIMB ANKLE CE R072 PRECORDIAL 05-16-2016 LINDA GALLO PAIN MD CONSULTING SRV G4733 OBSTRUCTIVE 05-02-2016 [facility] SLEEP FAMILY APNEA ADULT PHYSICIANS PEDIATRIC [facility] D62989O TOX EFF OTH 04-08-2016 [facility] GASES N EMERGENCY FUMES & PHYS VAPORS ACC INITIAL ENC M545 LOW BACK 03-04-2016 [facility] PAIN FAMILY PHYSICIANS PLL R112 NAUSEA WITH 03-04-2016 [facility] UNSPECIFIED R1033 PERIUMBILIC 02-28-2016 [facility] AL PAIN N EMERGENCY PHYS R5381 OTHER 01-29-2016 [facility] MALAISE N EMERGENCY PHYS R17 UNSPECIFIED 01-26-2016 [facility] HOSPI L0390 CELLULITIS 01-08-2016 [facility] UNSPECIFIED FAMILY PHYSICIANS [facility] M546 PAIN IN 11-10-2015 [facility] THORACIC N EMERGENCY SPINE PHYS M31185 MUSCLE 11-10-2015 [facility] SPASM OF N EMERGENCY BACK PHYS K6389 OTHER 09-05-2015 [facility] [place] SPECIFIED RADIOLOGY DISEASES OF INTESTINE B370 CANDIDAL 08-15-2015 [facility] STOMATITIS FAMILY PHYSICIANS [facility] K222 ESOPHAGEAL 07-26-2015 [facility] OBSTRUCTION REGIONAL PHYSICIAN PRA K319 DISEASE OF 07-26-2015 [place] [facility] DUODENUM GROUP PS UNSPECIFIED K449 DIAPHRAGMAT 07-26-2015 [place] IC HERNIA ANESTHESIA W/O GROUP PS OBSTRUCTION OR GANGRENE 4660 ACUTE 06-07-2015 [facility] BRONCHITIS [facility] PLLC 65770 ABDOMINAL 06-07-2015 [facility] PAIN, FAMILY GENERALIZED PHYSICIANS PLL 7242 LUMBAGO 06-01-2015 [facility] [place] RADIOLOGY 7862 COUGH 06-01-2015 [facility] [place] RADI[facility] 65016 ABDOMINAL 06-01-2015 [facility] [place] PAIN RIGHT RADIOLOGY LOWER QUADRANT 95291 DIAB W/O 05-31-2015 [facility] COMP TYPE N EMERGENCY II/UNS NOT PHYS STATED UNCN[facility]L 4019 UNSPECIFIED 05-31-2015 [facility] N 4549 ASYMPTOMATI 05-31-2015 [place] C VARICOSE [facility] 5715 CIRRHOSIS 05-31-2015 [place] OF LIVER COMMUNITY WITHOUT HOSPITAL MENTION OF ALCOHOL 32515 OSTEOARTHRO 05-31-2015 [place] S UNSPEC COMMUNITY WHETHER HOSPITAL GEN/LOC UNSPEC SITE 7213 LUMBOSACRAL 05-31-2015 [facility] N EMERGENCY SPONDYLOSIS PHYS WITHOUT MYELOPATHY 74560 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 [facility] 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 04614 OTHER 05-31-2015 [place] ASCITES [facility] V5867 LONG-TERM 05-31-2015 [place] USE OF [facility] INSULIN HOSPITAL V5869 LONG-TERM 05-31-2015 [place] (CURRENT) [facility] USE OF HOSPITAL OTHER MEDICATIONS 22803 NAUSEA WITH 05-26-2015 [place] VOMITING [facility] 06805 ABDOMINAL 05-26-2015 [facility] PAIN RIGHT N EMERGENCY UPPER PHYS QUADRANT 81355 ABDOMINAL 05-26-2015 [facility] PAIN, LEFT N EMERGENCY LOWER PHYS QUADRANT 06755 ABDOMINAL 05-26-2015 [facility] PAIN, N EMERGENCY EPIGASTRIC PHYS V145 PERSONAL 05-26-2015 [place] HISTORY OF COMMUNITY ALLERGY TO HOSPITAL NARCOTIC AGENT 98819 ABDOMINAL 05-04-2015 [facility] UNSPECIFIED SITE 5718 OTHER 04-12-2015 [place] CHRONIC [facility] C LIVER DISEASE 70525 UNSPEC 04-12-2015 [facility] INJURY LIVR N EMERGENCY W/O PHYS MENTION OPN WOUND IN CAV 92600 DIAB W/O 03-27-2015 [facility] MENTION FAMILY COMP TYPE PHYSICIANS II/UNS TYPE PLLC UNCNTRL 02284 DIVERTICULI 03-27-2015 [facility] TIS OF FAMILY COLON PHYSICIANS PLLC 5589 OTH&UNSPEC 03-20-2015 [facility] NONINFECTIO N PHYSICIAN US SERVI GASTROENTER ITIS&COLITI S 5723 PORTAL 03-16-2015 [facility] [place] HYPERTENSIO RADIOLOGY N 16442 ABDOMINAL 03-16-2015 [facility] PAIN, N EMERGENCY PERIUMBILIC [...] OTHER N PHYSICIAN RESPIRATORY SERVI MANIFESTATI ONS 56077 FEVER 10-31-2014 [facility] UNSPECIFIED N PHYSICIAN SERVI 486 PNEUMONIA, 10-30-2014 [facility] ORGANISM N EMERGENCY UNSPECIFIED PHYS 53487 OBESITY, 08-24-2014 [facility] NURSE UNSPECIFIED PRACTITIONE R GR V069 NEED PROPH 07-28-2014 [facility] VACC[facility]ATION [facility] W/UNSPEC [facility] DEPT COMB RESHMA VACCINE 32464 DISORDER OF 07-05-2014 [facility] [place] BONE AND RADIOLOGY CARTILAGE UNSPECIFIED 7948 NONSPECIFIC 07-05-2014 [facility] [place] ABNORMAL RADIOLOGY RESULTS LIVR FUNCTION STUDY 54831 DYSFUNCTION 06-29-2014 [place] OF PHYSICIAN EUSTACHIAN PRACTICE L TUBE 88853 SUBJECTIVE 06-29-2014 [place] TINNITUS PHYSICIAN PRACTICE L 81310 SENSORINEUR 06-29-2014 [place] AL HEARING PHYSICIAN LOSS PRACTICE L BILATERAL 7804 DIZZINESS 06-29-2014 [place] AND PHYSICIAN GIDDINESS PRACTICE L 4561 ESOPHAGEAL 06-27-2014 [place] [facility] VARICES SERV WITHOUT FOUNDATION MENTION OF BLEEDING 3899 UNSPECIFIED 06-21-2014 [facility] HEARING PHYSICIAN LOSS PRACTICE L Allergies, Adverse [...] PH AR MA CY #3 01 6 [place] 65 08 09 12 2 00 KE [...] 80 2- 1- 00 01 UC ve OR 21 20 20 03 [place] DE 61 [...] ve G 79 20 20 04 [place] OR 75 17 17 96 X 9 17 [...] 20 5- 4- 00 01 UC ve OR 76 20 20 02 [place] N 01 [...] 80 9- 8- 00 01 UC ve OR 21 20 20 03 [place] DE 61 [...] 20 9- 1- 00 01 UC ve OR 76 20 20 02 [place] N 01 [...] 80 4- 3- 00 01 UC ve OR 21 20 20 03 [place] DE 61 [...] 20 3- 3- 00 01 UC ve OR 76 20 20 02 [place] N 01 [...] ve G 79 20 20 97 [place] OR 75 17 17 10 X 9 96 CV 75 S -2 PH 5 AR KW MA IK CY PE N LL C, DB A CV S PH AR MA CY #3 01 6 OR 57 05 06 30 30 00 KE [...] PH AR MA CY #3 01 6 OR 57 04 05 30 30 00 KE [...] 20 3- 2- 00 00 UC ve OR 76 20 20 99 [place] N 01 [...] ve G 79 20 20 97 [place] OR 75 17 17 10 X 9 96 [...] PH AR MA CY #3 01 6 OR 57 03 04 30 30 00 KE [...] 20 7- 7- 00 00 UC ve OR 76 20 20 99 [place] N 01 [...] 44 7- 7- 00 26 UC ve OR 29 20 20 25 [place] DE 93 [...] 80 1- 0- 00 00 UC ve OR 20 20 20 97 [place] DE 81 [...] 00 [place] RA 30 17 17 11 OR 5 65 CV DE S PH 10 AR MA MG CY TA LL BL C, ET DB A CV S PH AR MA CY #3 01 6 OR 57 02 02 30 30 00 KE [...] 80 1- 0- 00 00 UC ve OR 20 20 20 97 [place] DE 81 17 17 66 0 62 CV 20 S PH MG AR MA TA CY BL ET LL C, DB A CV S PH AR MA CY #3 01 6 ME 68 01 02 60 30 00 KE Ac TF 38 -1 -1 .0 00 NT ti OR 20 0- 0- 00 00 UC ve OR 76 20 20 99 [place] N 01 [...] ve G 79 20 20 97 [place] OR 75 16 17 10 X 9 96 [...] Comment ion Range Glucose 419 mg/dL 74-99 [facility] Results Labs Lab Lab Date Result Refere Interp Status Commen Order Detail nces retati t Range on Hgb A1c MFr Bld (05-08-2017 05:53) Hgb A1c 6.7 % 4.7-6.0 complet MFr 017 ed Bld 05:53 Path Rev Bld -Imp (05-08-2017 02:25) Path [id number] complet Rev Bld 017 04 ed -Imp 02:25 refer to patholo gy laborat ory SCT COPATH COPATH report to follow L Bacteria Ur Cult (05-08-2017 01:09) CC XXX NOTAP complet VC-aCnc 017 NOT ed 01:09 APPLICA BLE L Bacteri [id number] complet a XXX 017 06 No ed [...] Bacteria XXX Anaerobe+Aerobe Cult (05-07-2017 23:23) Bacteri [id number] complet a XXX 017 06 No ed [...] NOT ed 03:50 APPLICA BLE L Bacteri [id number] complet a XXX 017 00 not ed [...] NOT ed 23:56 APPLICA BLE L Bacteri [id number] complet a XXX 017 1 ed Anaerob 23:56 Staphyl e+Aerob ococcus e Cult epiderm idis (organi sm) SCT SEPI STAPHYL OCOCCUS EPIDERM IDIS L Magnesium SerPl-mCnc (11-20-2016 03:42) Magnesi 1.5 1.9-2.4 complet um 017 mg/dL ed SerPl-m 03:42 Cnc Phosphate SerPl-mCnc (11-20-2016 03:42) Phospha 2.8 2.5-4.5 complet te 017 mg/dL ed SerPl-m 03:42 Cnc MDRO Wnd (11-18-2016 10:50) Bacteri [id number] complet a XXX 017 06 No ed [...] NOT ed 17:16 APPLICA BLE L Bacteri [id number] complet a XXX 017 00 not ed [...] NOT ed 13:15 APPLICA BLE L Bacteri [id number] complet a XXX 017 00 not ed [...] NOT ed 05:05 APPLICA BLE L Bacteri [id number] complet a XXX 017 06 No ed Anaerob 05:05 growth e+Aerob (qualif e Cult ier value) SCT NG1 NO GROWTH DAY 1. L Bacteria XXX Anaerobe+Aerobe Cult (11-08-2016 05:05) Bacteri [id number] complet a XXX 017 06 No ed Anaerob 05:05 growth e+Aerob (qualif e Cult ier value) SCT NGB6 NO GROWTH DAY 5. L Bacteria Bro [place] Aerobe Cult (11-08-2016 04:42) Bacteri [id number] complet a XXX 017 06 No ed [...] NOT ed 15:10 APPLICA BLE L Bacteri [id number] complet a XXX 017 06 No ed Anaerob 15:10 growth e+Aerob (qualif e Cult ier value) SCT NG4 NO GROWTH DAY 4. L Procedures Procedure DOS Code Location Performer Comment RADEX 99182 [place] ABDOMEN 1 7 MEDICAL SERV ANTEROPOS FOUNDATIO TER[place] BLOOD 06598 [place] MATTHEW SMEAR 7 MEDICAL PERIPHERA SERV L INTERP FOUNDATIO PHYS N W/WRIT REPORT INITIAL [address] [place] [address] [facility] CARE/DAY PHYSICIAN CIARAALAL 70 SERVI MINUTES COMPREHEN 11469 [place] [facility] SIVE 7 HEALTHCAR HEALTHCAR METABOLIC E E PANEL [facility] URNLS DIP 15293 [place] UK 7 HEALTHCAR HEALTHCAR STICK/TAB E E LET RGNT [facility] AUTO W/[place] [address] [place] [facility] LIPASE 7 HEALTHCAR HEALTHCAR E E [facility] BLOOD 06404 [place] [facility] COUNT 7 HEALTHCAR HEALTHCAR COMPLETE E E AUTOMATED [facility] ONDANSETR Q0162 [place] [facility] ON 1 MG 7 HEALTHCAR HEALTHCAR ORL NOT E E EXCEED 48 [facility]OSPITALS HOSPITALS HR DOSE REG THERAPEUT 33390 UK IC 7 HEALTHCAR HEALTHCAR PROPHYLAC E E TIC/DX HOSPITALS HOSPITALS INJECTION SUBQ/IM DIAB ONLY A5500 [facility] FIT CSTM 7 BRACE BRACE PREP&SPL PROSTH PROSTH SHOE MX INC INC DNSITY INSRT FOR DIAB A5513 [facility] CENTRAL ONLY MX 7 BRACE BRACE DNSITY PROSTH PROSTH INSRT INC INC CSTM MOLD CSTM EA OBSERVATI 64234 [facility] ON/INPATI 7 MEDICINE [facility] O [place] [address] [place] [address] [facility] ABDOMEN & 7 RADIOLOGY III PELVIS W/O CONTRAST MATERIAL PROTHROMB 95881 DILEEP [place]TO[place] IN TIME 7 [facility] BLOOD 63724 DILEEP FALK COUNT [address] [place] [address] HOSPITAL AUTOMATED COMPREHEN 12[address]EP [address]ALK [address] [place] [place] [address] DILEEP FALK AMMONIA [address] [place] [address] PROTHROMB 33181 DI[address] IN TIME [address] [facility] HOSPITAL GLUC BLD 26240 DILEEP SORTO[place] GLUC MNTR [address] [place] [address] HOSPITAL CLEARED FDA SPEC HOME USE OBSERVATI 29554 [facility] ON CARE 7 MEDICINE DISCHARGE SERVICES O MANAGEMEN T THROMBOPL 17756 DILEEP SORTOON ASTIN [address] [place] [address] PARTIAL PLASMA/WH OLE BLOOD GLUC BLD 17901 DILEEP SORTOON GLUC MNTR [address] [place] [address] HOSPITAL CLEARED FDA SPEC HOME USE BLOOD 60581 DILEEP FALK COUNT [address] [place] [address] HOSPITAL AUTO&[place] [address] DILEEP FALK AMMONIA [address] [place] [address] PROTHROMB 17316 DILEEP [facility]ON IN TIME 7 [facility] COMPREHEN [address] HOSPITAL PANEL COMPREHEN [address] [facility] PANEL URNLS DIP 04081 DILEEP FALK 7 [facility]PITAL HOSPITAL LET REAGENT AUTO MICROSCOP Y PROTHROMB 35828 DILEEP FALK IN TIME [address] [place] [address] DILEEP FALK AMMONIA 7 [facility] BLOOD 18042 DILEEP FALK COUNT 7 [facility] AUTO&AUTO DIFRNTL WBC INITIAL [address] [place] [address] MEDICINE ON SERVICES CARE/DAY O [address] [place] [address] DILEEP FALK LIPASE 7 [facility] BLD BANK [address] [place] NICOLAS PHYS SVCS 7 MEDICAL DIFFC SERV CROSS FOUNDATIO MATCH&/EV N AL REP ESOPHAGOG 55148 [place] SUZAN ASTRODUOD 7 MEDICAL ENOSCOPY SERV TRANSORAL FOUNDATIO N DIAGNOSTI C ANES 64624 [place] U[place]ER GI 7 MEDICAL ENDOSCOPY SERVICES PROXIMAL TO DUODENUM INITIAL [address] CARE/DAY PHYSICIAN DECALVO 70 SERVI MINUTES BLD BANK [address]83 [place] NIC[place]AS PHYS SVCS 7 MEDICAL DIFFC SERV CROSS FOUNDATIO MATCH&/EV N AL REP COMPREHEN 98829 DILEEP FALK SIVE 7 [facility] PANEL BLOOD 12509 DILEEP FALK COUNT 7 [facility] AUTOMATED RADIOLOGI 41186 [facility] [place] OLGA C EXAM 7 RADIOLOGY CHEST 2 VIEWS FRONTAL&L ATERAL DUP-SCAN 58799 [place] ROBERTH ARTL TIMOTHY 7 MEDICAL ABDL/PEL/ SERV SCROT&/RP FOUNDATIO R ORGN N COM ECG 70622 [place] NIESHA ROUTINE 7 MEDICAL ECG SERV W/LEAST FOUNDATIO 12 LDS N I&R ONLY RADIOLOGI 51377 [place] MERHAR C EXAM 7 MEDICAL CHEST 2 SERV VIEWS FOUNDATIO FRONTAL&L N ATERAL HOSPITAL 44229 [place] DISCHARGE 7 MEDICAL DAY SERV MANAGEMEN FOUNDATIO T > 30 N MIN DUP-SCAN 08796 [place] WEBBER ARTL TIMOTHY 7 MEDICAL ABDL/PEL/ SERV SCROT&/RP FOUNDATIO R ORGN N COM SBSQ 65488 [place] [facility] 7 MEDICAL CARE/DAY SERV 35 FOUNDATIO MINUTES N SWALLOWIN 28730 [place] DL G FUNCJ 7 MEDICAL W/CINERAD SERV IOGRAPY/V FOUNDATIO IDRADIOG N SBSQ 95023 [place] [facility] 7 MEDICAL CARE/DAY SERV 25 FOUNDATIO MINUTES N SBSQ 11881 [place] [facility] 7 MEDICAL CARE/DAY SERV 25 FOUNDATIO MINUTES N RADIOLOGI 37973 [place] LAYLA C 7 MEDICAL AYA EXAMINATI SERV ON CHEST FOUNDATIO SINGLE N VIEW FRONTAL ECG 80403 [place] [facility] 7 MEDICAL ECG SERV W/LEAST FOUNDATIO 12 LDS N I&R ONLY RADIOLOGI 13750 [place] ZEKE C 7 MEDICAL EXAMINATI SERV ON CHEST FOUNDATIO SINGLE N VIEW FRONTAL ECG 43313 [place] DAM[facility] ROUTINE 7 MEDICAL ECG SERV W/LEAST FOUNDATIO 12 LDS N I&R ONLY RADIOLOGI 15450 [place] ALANIS C 7 MEDICAL EXAMINATI SERV ON CHEST FOUNDATIO SINGLE N VIEW FRONTAL CRITICAL 01773 [place] [facility] 7 MEDICAL ILL/INJUR SERV ED FOUNDATIO PATIENT N INIT 30-74 MIN CRITICAL 52788 [place] [facility] 7 MEDICAL ILL/INJUR SERV ED FOUNDATIO PATIENT N INIT 30-74 MIN RADIOLOGI 52992 [place] [facility]REV[facility] C 7 MEDICAL EXAMINATI SERV ON CHEST FOUNDATIO SINGLE N VIEW FRONTAL RADIOLOGI 94771 [place] ONEAL C 7 MEDICAL EXAMINATI SERV ON CHEST FOUNDATIO SINGLE N VIEW FRONTAL CRITICAL 80485 [place] [facility] 7 MEDICAL ILL/INJUR SERV ED FOUNDATIO PATIENT N INIT 30-74 MIN RADEX 08524 [place] LD ABDOMEN 1 7 MEDICAL SERV ANTEROPOS FOUNDATIO TERIOR N VIEW COLONOSCO 41834 [place] SHEDLOFSK PY FLX DX 7 MEDICAL Y W/COLLJ SERV SPEC WHEN FOUNDATIO PFRMD N ESOPHAGOG 74978 [place] ESTHERLOMOEK ASTRODUOD 7 MEDICAL Y ENOSCOPY SERV TRANSORAL FOUNDATIO N DIAGNOSTI C RADEX 10665 [place] DL ABDOMEN 1 7 MEDICAL SERV ANTEROPOS FOUNDATIO TERIOR N VIEW CRITICAL 35779 [place] [facility] 7 MEDICAL ILL/INJUR SERV ED FOUNDATIO PATIENT N INIT 30-74 MIN SBSQ 24432 [facility] 7 NURSE CARE/DAY PRACTITIO 25 NER GR MINUTES RADIOLOGI 44523 [place] T[facility] C 7 MEDICAL EXAMINATI SERV ON CHEST FOUNDATIO SINGLE N VIEW FRONTAL DUP-SCAN 33818 [place] JESSICA ARTL TIMOTHY 7 MEDICAL ABDL/PEL/ SERV SCROT&/RP FOUNDATIO R ORGN N COM RADIOLOGI 83295 [place] [facility]RE[facility] C 7 MEDICAL EXAMINATI SERV ON CHEST FOUNDATIO SINGLE N VIEW FRONTAL CRITICAL 84136 [place] [facility] 7 MEDICAL ILL/INJUR SERV ED FOUNDATIO PATIENT N INIT 30-74 MIN CRITICAL 91523 [place] [facility] 7 MEDICAL ILL/INJUR SERV ED FOUNDATIO PATIENT N INIT 30-74 MIN RADIOLOGI 14868 [place] [facility] C 7 MEDICAL EXAMINATI SERV ON CHEST FOUNDATIO SINGLE N VIEW FRONTAL SBSQ 85479 [facility] 7 NURSE CARE/DAY PRACTITIO 35 NER GR MINUTES ECG 12005 [place] [facility] 7 MEDICAL ECG SERV W/LEAST FOUNDATIO 12 LDS N I&R ONLY RADIOLOGI 73376 [place] RONAN C 7 MEDICAL EXAMINATI SERV ON CHEST FOUNDATIO SINGLE N VIEW FRONTAL RADIOLOGI 33574 [place] [facility] C 7 MEDICAL EXAMINATI SERV ON CHEST FOUNDATIO SINGLE N VIEW FRONTAL RADEX 20147 [place] JESSICA ABDOMEN 1 7 MEDICAL SERV ANTEROPOS FOUNDATIO TERIOR N VIEW ECG 37871 [place] ROUTINE 7 MEDICAL ECG SERV W/LEAST FOUNDATIO 12 LDS N I&R ONLY RADIOLOGI 58837 [place] WYNNE C 7 MEDICAL MONA EXAMINATI SERV ON CHEST FOUNDATIO SINGLE N VIEW FRONTAL AMB A0427 [facility] SERVICE 7 AMBULANCE AMBULANCE ALS SERVICE SERVICE EMERGENCY TRANSPORT LEVEL 1 INITIAL 73589 [facility] INPATIENT 7 NURSE CONSULT PRACTITIO CRUZ/MATTIE VALDOVINOS GR PT 80 MIN GROUND A0425 [facility] MILEAGE 7 AMBULANCE AMBULANCE PER SERVICE SERVICE STATUTE MILE D BANK 01656 [facility] VALENZUELA PHYS SVCS 7 MEDICAL AUTHJ SERV DEVIJ FOUNDATIO STANDARD N REPRT SERVICES 85848 [facility] PROVIDED 7 PHYSICIAN U BTW 10 S, PLLC PM&8 AM AT 24-HR FACI GROUND [facility]0425 [facility]UL[facility] PER SERVICE SERVICE STATUTE MILE AMB A0427 [facility] SERVICE 7 AMBULANCE AMBULANCE ALS SERVICE SERVICE EMERGENCY TRANSPORT LEVEL 1 CRITICAL 45956 [facility] CARE 7 PHYSICIAN U ILL/INJUR S, PLLC ED PATIENT INIT 30-[address] [facility] AMBULANCE PER SERVICE SERVICE STATUTE MILE SERVICES 31786 [facility] PROVIDED 7 PHYSICIAN U BTW 10 S, PLLC PM&8 AM AT 24-HR FACI AMBULANCE A0429 [facility] SERVICE 7 AMBULANCE AMBULANCE [facility] SERVICE SERVICE EMERGENCY TRANSPORT RADIOLOGI 71885 [facility] EXAM 7 MEDICAL CHEST 2 IMAGING VIEWS ASS FRONTAL&L ATERAL GROUND A0425 [facility] MILEAGE 7 [facility] PER [facility] STATUTE EMS EMS MILE OBSERVATI 69084 [facility] ON CARE 7 MEDICINE A DISCHARGE SERVICES O MANAGEMEN T INITIAL 41202 [facility] OBSERVATI 7 MEDICINE A ON SERVICES CARE/DAY O 70 MINUTES RADIOLOGI 05788 [facility] [place] ANABELA C EXAM 7 RADIOLOGY CHEST 2 VIEWS FRONTAL&L ATERAL RADIOLOGI 23208 [facility] EX[facility] 7 MEDICAL CHEST 2 IMAGING VIEWS ASS FRONTAL&L ATERAL RADIOLOGI 43400 [place] C EXAM 7 MEDICAL CHEST 2 IMAGING VIEWS ASS FRONTAL&L ATERAL GROUND A0425 [facility] MILEAGE 7 AMBULANCE AMBULANCE PER SERVICE SERVICE [facility] A0427 [facility] SERVICE 7 AMBULANCE AMBULANCE ALS SERVICE SERVICE EMERGENCY TRANSPORT LEVEL 1 RADEX 69190 [facility] [place] SCALF MARILIN RIBS 6 RADIOLOGY UNILATERA L 2 VIEWS BLOOD 18990 [facility] FALK COUNT 6 [facility] AUTOMATED PROTHROMB 41447 DILEEP FALK IN TIME 6 [facility] COLLECTIO 04464 [facility] F[facility] N VENOUS 6 [facility] VENIPUNCT URE COMPREHEN 95388 [facility] SIVE 6 [facility] PANEL RADEX 94100 [facility] [place] RIBS UNI 6 RADIOLOGY RHO W/POSTERO ANT CH MINIM[place] [address] [place] [address] [facility] [place] ABDOMEN & 6 RADIOLOGY RHO PELVIS W/O CONTRAST MATERIAL RADIOLOGI 58918 [facility] MATIAS C 6 CL[place] EXAMINATI EMERGENCY ON CHEST PHYS SINGLE VIEW FRONTAL RADEX 40979 [facility] MATIAS RIBS 6 [place] UNILATERA EMERGENCY L 2 VIEWS PHYS ECG 10947 [facility] ARNOLD ROUTINE 6 CL[place]IS[place] LAST ECG EMERGENCY W/LEAST PHYS 12 LDS I&R ONLY RADIOLOGI 62963 [facility] [place] C 6 RADIOLOGY RHO EXAMINATI ON CHEST SINGLE VIEW FRONTAL ECG 74332 [place] DAMIAN LASHAWN ROUTINE 6 MEDICAL ECG SERV W/LEAST FOUNDATIO 12 LDS N I&R ONLY RADIOLOGI 48959 [place] DAGO HOGAN C EXAM 6 MEDICAL MARY KATE CHEST 2 SERV VIEWS FOUNDATIO FRONTAL&L N ATERAL HEMOGLOBI 15918 S JIM N 6 NURSE REGINALD GLYCOSYLA PRACTITIO DANE A1C NER GR POLYSOM 01227 LINDA GALLO GALLO LINDA 6/>YRS 6 MD SLEEP 4/> CONSULTIN ADDL G SRV SYBIL ATTND MRI 16332 [place] [facility] JENNIFER ABDOMEN 6 MEDICAL W/O & SERV W/CONTRAS FOUNDATIO T N MATERIAL POLYSOM 62018 DILEEP FALK 6/>YRS 6 [facility] SLEEP 4/> HOSPITAL HOSPITAL ADDL SYBIL ATTND PROTHROMB 06627 [facility]ALK IN TIME 6 [facility] BLOOD 90687 DILEEP FALK COUNT 6 [facility] AUTOMATED COMPREHEN 63784 DILEEP FALK SIVE 6 [facility] PANEL COLLECTIO 11001 DILEEP FALK N VENOUS 6 [facility] VENIPUNCT URE ECHO 84578 LINDA GALLO GALLO LINDA TTHRC R-T 6 2D CONSULTIN W/WOM-MOD G SRV E COMPL SPEC&COLR D COLLECTIO 38490 MANUEL ARNDT JAMIE N VENOUS 6 FAMILY BLOOD PHYSICIAN VENIPUNCT S PLLC URE COMPREHEN 8[address]60 [address] SIVE 6 [facility] PANEL INITIAL 15569 [facility] DIAZ OBSERVATI 6 CL[place]ISSA ISIDRA ON PHYSICIAN CARE/DAY SERVI 30 MINUTES RADIOLOGI 85495 [facility] [place] SHAY C 6 RADIOLOGY III MARY KATE EXAMINATI ON CHEST SINGLE VIEW FRONTAL RADIOLOGI 42653 [facility] SWINEY C 6 CLARIS[place] PAT EXAMINATI EMERGENCY ON CHEST PHYS SINGLE VIEW FRONTAL ECG 20724 [facility] SWINEY ROUTINE 6 CL[place]IS[place] PAT ECG EMERGENCY W/LEAST PHYS 12 LDS I&R ONLY RADIOLOGI 46611 [facility] [place] SCALF MARILIN C EXAM 6 RADIOLOGY CHEST 2 VIEWS FRONTAL&[place] [address] [facility] UNIVERS FREE 6 Y Y THYROXINE [facility] CERULOPLA 28251 [facility] SMIN 6 [place] [address] [facility] FOLIC 6 Y Y ACID [place] [address] [facility] IRON 6 Y Y HOSPITAL HOSPITAL LACTATE 56273 [facility] DEHYDROGE 6 Y Y NASE LDH [facility] BLOOD 32176 [facility] UNIVERS COUNT 6 Y Y RETICULOC [facility] YTES AUTO 1/> [place] [address] [facility] GAMMAGLOB 6 Y Y ULIN IGA [facility] IGD IGG IGM EACH COLLECTIO 96387 [facility] N VENOUS 6 Y Y BLOOD [facility] VENIPUNCT URE HEPATITIS 86273 [facility] B SURF 6 Y Y ANTIBODY [facility] HBSAB COLD 19278 [facility] AGGLUTINI 6 Y Y N TITER [facility] HEPATITIS 07074 [facility] A 6 Y Y ANTIBODY [facility] [place] [address] [facility] FERRITIN [address] Y [address] [facility] IMMUNOASS 89517 [facility] AY 6 Y Y ANALYTE [facility] QUAL/SEMI QUAL MULTIPLE STEP GENERAL 63111 [facility] HEALTH 6 Y Y PANEL [facility] ANTINUCLE 65885 [facility] AR 6 Y Y ANTIBODIE [facility] [place] [address] [facility] HAPTOGLOB 6 Y Y IN [facility] [place] [address] [facility] [place] SCALF MARILIN ABDOMEN & 5 RADIOLOGY PELVIS W/CONTRAS T MATERIAL ESOPHAGOG 00480 DAYNA TURNER ASTRODUOD [address] [place] [address] GRE ENOSCOPY PHYSICIAN TRANSORAL PRA DIAGNOSTI C ANES 44687 [place] UPPER GI 5 ANESTHESI ENDOSCOPY [place] [address] [facility] [place] ABDOMEN & 5 RADIOLOGY RHO PELVIS W/O CONTRAST MATERIAL ONDANSETR Q0162 DILEEP FALK ON [address] [place] [address] [facility] EXCEED 48 HR DOSE REG RADIOLOGI 64285 [facility] [place] C 5 RADIOLOGY RHO EXAMINATI ON CHEST SINGLE VIEW FRONTAL IAADIADOO [address] [facility] COMPREHEN 86558 MACARIOJOCELYNN DILEEP SIVE [address] [place] [address] PANEL URNLS DIP 06806 [facility] MACARIO[address] [facility] HOSPITAL LET [place] [address] DILEEP FALK AMYLASE 5 [facility] RADEX 65862 [facility] [place] SPINE 5 RADIOLOGY RHO LUMBOSACR AL 2/3 VIEWS HI OSM Q9963 DILEEP FALK CONTRST 5 [facility] 350-399 MG/[place] [address] DILEEP FALK LIPASE 5 [facility] GLUC BLD 76891 DILEEP FALK GLUC MNTR [address] [facility] CLEARED FDA SPEC HOME USE BLOOD 83052 DILEEP FALK COUNT [address] [place] [address] AUTO&AUTO DIFRNTL WBC COLLECTIO 93686 DILEEP FALK N VENOUS [address] [place] [address] VENIPUNCT URE COLLECTIO 12618 [facility] N VENOUS [address] [place] [address] VENIPUNCT URE URNLS DIP 88163 [facility] FALK [address] [place] [address] [facility] HOSPITAL LET REAGENT AUTO MICROSCOP Y COMPREHEN 29294 [facility] FALK [address] [place] [address] DILEEP FALK LIPASE [address] [place] [address] BLOOD 32483 [place] DILEEP COUNT [address] [place] [address] AUTO&AUTO DIFRNTL WBC INJECTION J1885 [facility] IRAJ[address] KETOROLAC [facility] TROMETHAM INE PER 15 MG INJECTION J2405 [facility] 5 Y Y [facility] ON HCL PER 1 MG BLOOD 19053 [facility] COUNT 5 Y Y [facility] AUTO&[place] [address] [facility] LIPASE 5 [place] [address] [facility] LACTATE 5 Y Y HOSPITAL HOSPITAL COMPREHEN 02593 [facility] 5 Y Y [facility] [place] [address] [facility] ABDOMINAL 5 Y Y REAL HOSPITAL HOSPITAL TIME W/IMAGE DOCUMENTA TION THER 74087 [facility] PROPH/DX 5 Y Y NJX IV [facility] PUSH SINGLE/1S T SBST/[place] [address] [facility] [place] ABDOMINAL 5 RADIOLOGY RHO REAL TIME W/[place] [address] [facility] ABDOMINAL 5 [facility] TIME W/IMAGE DOCUMENTA TION INJECTION J[address] JEANNINE UP TO 4 MG INJECTION J2405 [address] ON HCL PER 1 MG HOSPITAL [address] [place] [address] CLARISSA EDGAR IGN DAY PHYSICIAN MANAGEMEN SERVI T 30 MIN/< SBSQ 95107 [place] [address] CL[place] HUG CARE/DAY PHYSICIAN 25 SERVI MINUTES SBSQ 68161 [place] [address] CL[place] HUG CARE/DAY PHYSICIAN 35 SERVI MINUTES INITIAL 80609 [place] [address] CLARISSA A GOP CARE/DAY PHYSICIAN [address] [place] [address] [facility] [place] WE[place] ABDOMEN & 5 RADIOLOGY RAY PELVIS W/O CONTRAST MATERIAL COLLECTIO 87452 MANUEL GREEN JAMIE N VENOUS 5 FAMILY BLOOD PHYSICIAN VENIPUNCT S PLL URE COMPREHEN [address] SIVE 5 [facility] PANEL BLOOD 71364 [address] COUNT 5 GROUP GROUP COMPLETE [facility] AUTO&AUTO DIFRNTL WBC HEMOGLOBI 50712 [address] PATH N 5 GROUP GROUP GLYCOSYLA [facility] DANE A1C CYANOCOBA [address] NAHOMI 5 GROUP GROUP VITAMIN [facility] B-12 [place] [address] DILEEP FALK LIPASE [address] [place] [address] GLUC BLD 14360 DILEEP FALK GLUC MNTR [address] [place] [address] CLEARED FDA SPEC HOME USE COMPREHEN 71487 DILEEP FALK SIVE [address] [place] [address] HOSPITAL PANEL COLLECTIO 93476 DILEEP MACARIOJOCELYNN N VENOUS [address] [place] [address] VENIPUNCT URE INITIAL 05831 [facility] 5 CLARISSA EDGAR IGN ON PHYSICIAN CARE/DAY SERVI 70 MINUTES COMPREHEN 27182 [facility] SIVE [address] [place] [address] HOSPITAL HOSPITAL PANEL GLUC BLD 90707 [facility] GLUC MNTR 5 [facility] CLEARED FDA SPEC HOME USE BLOOD 12354 [place] BRANDAN PET COUNT 5 [facility] AUTOMATED PRESSURIZ 00022 [facility] ED/NONPRE [address] [place] [address] SSURIZED [facility] INHALATIO N TREATMENT NONINVASI 46246 [facility] VE [address] [place] [address] [facility] HOSPITAL OXIMETRY SINGLE DETER GENERAL [address] [place] [address] [facility] AMYLASE [address] [place] [address] HOSPITAL RADIOLOGI 50393 [facility] C EXAM [address] [place] [address] CHEST 2 [facility] VIEWS FRONTAL&L ATERAL GLUC BLD 92107 [facility] GLUC MNTR 5 [facility] CLEARED FDA SPEC HOME USE NATRIURET 92552 [facility] IC [address] [place] [address] HOSPITAL HOSPITAL G0378 [facility] [address] [facility] HOSPITAL SERVICE PER HOUR IAADIADOO [address] [facility] [address] [facility] LIPASE [address] [place] [address] HOSPITAL URNLS DIP [address] [facility] HOSPITAL LET REAGENT AUTO MICROSCOP Y CULTURE 83922 [facility] BACTERIAL [address] [place] [address] BLOOD [facility] AEROBIC W/ID ISOLATES IAADIADOO [address] [facility] CCUS GROUP A HEMOGLOBI 12575 [facility] JOSE ANTONIO LUISA N 4 NURSE PEETR VELA A1C NER GR IM ADM 27756 [facility] PRQ ID 4 [facility] DISTRICT SUBQ/IM HLTH DEPT HLTH DEPT NJXS EA RESHMA RESHMA VACCINE HEPA 95106 [facility] VACCINE 4 [facility] ADULT HLTH DEPT HLTH DEPT DOSE FOR RESHMA RESHMA INTRAMUSC ULAR USE IM ADM 64432 [facility] PRQ ID [facility] SUBQ/IM HLTH DEPT HLTH DEPT NJXS 1 RESHMA RESHMA VACCINE HEPB 51127 [facility] 4 [facility] DISTRICT ADULT 3 HLTH DEPT HLTH DEPT DOSE RESHMA RESHMA SCHEDULE FOR IM USE RADEX 10077 [facility] [place] ABDOMEN 4 RADIOLOGY RHO COMPL W/DCBTS&/ ERC VIEWS DXA BONE 02321 [place] DENSITY 4 [facility] STUDY 1/> [place]OSP[place] [address] [place] ABDOMINAL 4 [facility] H[facility]PITAL TIME W/IMAGE DOCUMENTA TION COMPRE 07331 [place] [facility] SET AUDIOMETR 4 PHYSICIAN Y PRACTICE THRESHOLD L EVAL SP RECOGNIJ TYMPANOME 35942 [place] [facility] SET TRY 4 PHYSICIAN PRACTICE L HEPATITIS 57344 [facility] Y Y ANTIBODY [facility] HBSAB HEPATITIS 88021 [facility] 4 Y Y ANT[address]ODY [facility] HAAB PROTHROMB 12367 [facility] IN TIME 4 Y Y HOSPITAL HOSPITAL Encounters Encounter Start End Date Code Location Performer Type Date EMERGENCY 05037 [facility] DEPT 7 7 CLARIS[place] VISIT EMERGENCY HIGH PHYS SEVERITY& THREAT FUN EMERGENCY 32925 [facility] 7 7 CLARISSA DEPARTMEN EMERGENCY T VISIT PHYS HIGH/URGE NT SEVERITY EMERGENCY 73867 [facility] DEPT 7 7 MEDICAL VISIT SERV HIGH FOUNDATIO SEVERITY& N THREAT [facility] - 7 7 [facility] T HOSPITALS EMERGENCY 42137 [facility] 7 7 MEDICAL M DEPARTMEN SERV T VISIT FOUNDATIO HIGH/URGE N NT SEVERITY EMERGENCY 19183 [facility] DEPT 7 7 CLARISSA VISIT EMERGENCY HIGH PHYS SEVERITY& THREAT [facility] [place] - 7 7 [facility] [place] - 7 7 [facility] EMERGENCY 57538 [facility] 7 7 [facility] VISIT HOSPITAL HIGH SEVERITY& THREAT FUNJ EMERGENCY 51446 [facility] ME[facility] DEPT 7 7 MEDICAL VISIT SERV HIGH FOUNDATIO SEVERITY& N THREAT FUNJ OFFICE 57697 [facility] 7 7 FAMILY T VISIT PHYSICIAN 15 S PLLC MINUTES EMERGENCY 35919 [facility] 7 7 CLARISSA DEPARTMEN EMERGENCY T VISIT PHYS HIGH/URGE NT SEVERITY [facility] - 7 7 [facility] INPATIENT HOSPITALS EMERGENCY 25485 [facility] DIAMOND DEPT 7 7 MEDICAL VISIT SERV HIGH FOUNDATIO SEVERITY& N THREAT [facility] [place] - 7 7 [facility] T EMERGENCY 74350 [facility] 7 7 CLARISSA DEPARTMEN EMERGENCY T VISIT PHYS HIGH/URGE NT SEVERITY EMERGENCY 11712 [facility] DEPT 7 7 CL[place]IS[place] VISIT EMERGENCY HIGH PHYS SEVERITY& THREAT FUNJ EMERGENCY 47920 [facility] DE[facility] 7 7 PHYSICIAN U VISIT S, PLLC HIGH SEVERITY& THREAT FUNCJ OFFICE 68355 [facility] CATTLE [facility]ICKER [facility]AT 7 7 MEDICAL ION SERV NEW/ESTAB FOUNDATIO PATIENT N 80 MIN EMERGENCY 69533 [facility] 7 7 MEDICAL DEPARTMEN SERV T VISIT FOUNDATIO MODERATE N SEVERITY EMERGENCY 68682 [facility] GEREMIAS DEPT 7 7 CLARISSA VISIT EMERGENCY HIGH PHYS SEVERITY& THREAT FUNJ EMERGENCY 96090 [facility] CHESTNUT 6 6 CLARISSA DEPARTMEN EMERGENCY T VISIT PHYS HIGH/URGE NT SEVERITY EMERGENCY 03093 [facility] SWINEY 6 6 CLARISSA PAT DEPARTMEN EMERGENCY T VISIT PHYS HIGH/URGE NT SEVERITY [facility] OFFICE 57902 MANUEL AYALA OUTPATIEN 6 6 FAMILY T VISIT PHYSICIAN 15 S PLLC MINUTES EMERGENCY 93829 [facility] MATIAS DEPT 6 6 CL[place]IS[place] VISIT EMERGENCY HIGH PHYS SEVERITY& THREAT FUNCJ EMERGENCY 65731 [facility] ARNOLD DEPT 6 6 CLARISSA LAST VISIT EMERGENCY HIGH PHYS SEVERITY& THREAT FUNCJ EMERGENCY [address] 6 6 MEDICAL DEPARTMEN SERV T VISIT FOUNDATIO LOW/MODER N SEVERITY OFFICE 78620 [facility] 6 6 NURSE REGINALD T VISIT PRACTITIO 25 NER GR MINUTES EMERGENCY 90919 [facility] 6 6 CLARISSA PAT DEPARTMEN EMERGENCY T VISIT PHYS HIGH/URGE NT SEVERITY [facility] 6 [facility] T OFFICE 84783 [facility] 6 6 FOOT & T NEW 30 ANKLE CE MINUTES OFFICE 59152 MANUEL AYALA OUTPATIEN 6 6 FAMILY T VISIT PHYSICIAN 15 S PLLC MINUTES EMERGENCY 77032 [facility] DARA INA 6 6 MEDICAL DEPARTMEN SERV T VISIT FOUNDATIO MODERATE N SEVERITY EMERGENCY 32216 [facility] DEPT 6 6 CLARISSA KATHY VISIT EMERGENCY HIGH PHYS SEVERITY& THREAT FUNCJ OFFICE 70733 MANUEL AYALA OUTPATIEN 6 6 FAMILY T VISIT PHYSICIAN 25 S PLLC MINUTES EMERGENCY 79303 [facility] 6 6 CLARISSA PAT VISIT EMERGENCY HIGH PHYS SEVERITY& THREAT FUNCJ EMERGENCY 07711 [facility] DEPT 6 6 CLARISSA KATHY VISIT EMERGENCY HIGH PHYS SEVERITY& THREAT FUNCJ OFFICE 05967 [facility] 6 6 Y OF RTHY JERRY T [facility]OS[facility] MIN[facility]ES OFFICE 16157 MANUEL GREEN JAMIE OUTPATIEN 6 6 FAMILY T VISIT PHYSICIAN 15 S PLLC MINUTES EMERGENCY 11567 [facility] 6 6 CLARISSA PAT DEPARTMEN EMERGENCY T VISIT PHYS HIGH/URGE NT SEVERITY [facility] - 6 6 Y [facility] T OFFICE 10332 MANUEL GREEN [facility] OUTPATI[facility] 5 5 FAMILY T VISIT PHYSICIAN 15 S PLLC MINUTES OFFICE 57601 [facility] 5 5 FAMILY T VISIT PHYSICIAN 25 S PLLC MINUTES OFFICE 16516 MANUEL GREEN JAMIE [facility] 5 5 FAMILY T VISIT PHYSICIAN 15 S PLLC MINUTES [facility] 5 [facility] T EMERGENCY 30925 [place] 5 5 [facility] T VISIT HIGH/URGE NT SEVERITY EMERGENCY 00367 [facility] DEPT 5 5 CLARISSA COLLINS VISIT EMERGENCY HIGH PHYS SEVERITY& THREAT FUNCJ [facility] 5 5 [facility] T EMERGENCY 72974 [place] 5 5 [facility] HOSPITAL T VISIT HIGH/URGE NT SEVERITY [facility]OSPITAL [facility] - 5 5 [facility] T EMERGENCY 99679 [facility] 5 5 [facility] SERV T VISIT FOUNDATIO MODERATE N SEVERITY EMERGENCY 42678 [facility] 5 5 [facility] H[facility] T VISIT HIGH/URGE NT SEVERITY [facility] [place] - 5 5 [facility] T OFFICE 45558 MANUEL AYALA OUTPATIEN 5 5 FAMILY T VISIT PHYSICIAN 25 S PLLC MINUTES [facility]OSP[facility] [place] - 5 5 [facility] T EMERGENCY 54151 [facility] 5 5 CLARISSA DEPARTMEN EMERGENCY T VISIT PHYS HIGH/URGE NT SEVERITY EMERGENCY 80350 [place] 5 5 [facility] HOSPITAL T VISIT MODERATE SEVERITY OFFICE 39910 MANUEL AYALA OUTPATIEN 5 5 FAMILY T VISIT PHYSICIAN 15 S PLLC MINUTES EMERGENCY 67088 [facility] DEPT 5 5 [place] COLLINS VISIT EMERGENCY HIGH PHYS SEVERITY& THREAT FUN [facility] [place] - 5 5 [facility] INPATIENT HOSPITAL OFFICE 86418 MANUEL AYALA OUTPATIEN 5 5 FAMILY T VISIT PHYSICIAN 15 S PLLC MINUTES [facility] [place] - 5 5 [facility] T EMERGENCY 21681 [facility] 5 5 [place] PAT DEPARTMEN EMERGENCY T VISIT PHYS HIGH/URGE NT SEVERITY EMERGENCY 63069 [place] 5 5 [facility], [facility]1983 HOSPITAL T VISIT MODERATE SEVERITY OFFICE 94388 MANUEL AYALA OUTPATIEN 5 5 FAMILY T VISIT PHYSICIAN 15 S PLLC MINUTES [facility] [place] - 5 5 [facility] T [facility]ENCY 23843 [facility] HIGH SEVERITY& THREAT FUNJ OFFICE 65361 [facility] JOSE ANTONIO LUISA OUTPATIEN 4 4 NURSE T NEW 45 PRACTITIO MINUTES NER GR OFFICE 98587 MANUEL AYALA OUTPATIEN 4 4 FAMILY T VISIT PHYSICIAN 15 S PLLC MINUTES OFFICE 45480 MANUEL AYALA OUTPATIEN 4 4 FAMILY T VISIT PHYSICIAN 25 S PLLC MINUTES EMERGENCY 36114 [facility] DEPT 4 4 [place] MU VISIT EMERGENCY HIGH PHYSI SEVERITY& THREAT [facility] 86018 [facility] 4 4 PHYSICIAN LES T VISIT PRACTICE 15 L MINUTES [facility] UNIVERSIT - 4 4 [facility] T OFFICE 16903 [facility] 4 4 [facility] T VISIT SERV 25 FOUNDATIO MINUTES N OFFICE 21762 DI[facility]EP [facility] 4 4 PHYSICIAN KALI ION PRACTICE NEW/ESTAB L PATIENT 40 MIN OFFICE 83189 MANUEL AYALA OUTPATIEN 4 4 FAMILY T VISIT PHYSICIAN 15 S PLLC MINUTES
--- OUTSIDE RECORDS SUMMARY | 2017-06-14 14:18 | External Medical Summary Rpt ---
Author Author , UNIQUE CALHOUN Address Unknown Phone [email or web address] Care Team Providers Care Core Finisher Name Role Phone SIMONE CADET, SIMONE CHICHI Unavailable Unavailable ARNOLD, ARNOLD Unavailable Unavailable ARNOLD LAST, ARNOLD Unavailable Unavailable LAST EDUARDO LES, EDUARDO Unavailable Unavailable LES LAYTON, LAYTON Unavailable Unavailable AVALLONE, AVALLONE Unavailable Unavailable BEINEKE, BEINEKE Unavailable Unavailable PULIDO, PULIDO Unavailable Unavailable [facility] Unavailable Unavailable [facility], [facility] PHYSICIAN Unavailable Unavailable PRACTICE L, [place] [facility], [facility] Unavailable Unavailable [facility] AMBULANCE [...] Unavailable [facility] Unavailable Unavailable PHYSICIAN PRA, [facility] PHYSICIAN PRA [facility], Unavailable Unavailable [...] Unavailable SERVICES O, [facility] O SHIP UNLOADER, SHIP UNLOADER Unavailable Unavailable SHAY III, SHAY Unavailable Unavailable III SHAY III MARY KATE, Unavailable Unavailable SHAY III MARY KATE [facility] Un[facility] Unavailable GROUP PS, [facility] Un[facility] Un[facility], [facility] MATTHEW, MATTHEW Unavailable Unavailable [facility] NURSE Unavailable Unavailable PRACTITIONER GR, [facility] NURSE PRACTITIONER GR GOOD JERRY, Unavailable Unavailable [facility] BRANDAN PET, BRANDAN PET Unavailable Unavailable BENSON, BENSON Unavailable Unavailable [facility] Unavailable [facility], [facility], Unavailable Unavailable [facility] JESSICA, JESSICA Unavailable Unavailable [place] [...] Unavailable Unavailable EMS, [facility] Unavailable Unavailable PHYS[facility]ANS PLL[facility], [facility], Unavailable Unavailable PLLC, [facility], Unavailable Unavailable [...] [facility] Unavailable Unavailable PHYSICIAN SERVI, [facility] WEBBER, WEBBER Unavailable Unavailable WEBBER RAY, WEBBER Unavailable Unavailable RAY SWINEY PAT, SWINEY Unavailable Unavailable PAT FLORENCIO TER, FLORENCIO TER Unavailable Unavailable [facility] Unavailable Unavailable HOSPITALS, [facility], Unavailable Unavailable [facility] Unavailable [facility] BRENNAN MARY KATE, BRENNAN Unavailable Unavailable MARY KATE JIM REGINALD, JIM Unavailable Unavailable REGINALD ALANIS, ALANIS Unavailable Unavailable [facility] Unavailable Unavailable DEPT [facility], [facility] Un[facility] Un[facility] NICOLAS VALENZUELA Unavailable Unavailable INDUINDU GIMENEZ Unavailable Unavailable ZAGUROVSKAYA, Unavailable Unavailable ZAGUROVSKAYA OLGA, OLGA Unavailable Unavailable Purpose Continuity of Care Document - 06-16-2014 through 2016 Problems Code Diagnosis DOS Provider Status D539 NUTRITIONAL 05-08-2017 [facility]PEC[facility]IED [facility] D696 THROMBOCYTO 05-08-2017 [place] [facility] PENIA [facility] UNSPECIFIED [facility]OUNDATION R109 UNSPECIFIED 05-08-2017 [place] [facility] ABDOMINAL SERV PAIN [facility] R140 ABDOMINAL 05-08-2017 [place] [facility] DISTENSION SERV GASEOUS F[facility]ATION K7581 NONALCOHOLI [...] O FAILURE WITHOUT COMA R51 HEADACHE 02-14-2017 [facility] Z794 USP 02-14-2017 [place] CURRENT USE [facility] Z7984 USP 02-14-2017 [place] USE OF ORAL [facility] HYPOGLYCEMI C DRUGS Z9119 PATIENTS 02-14-2017 [place] NONCOMPLIAN [facility] CE W/OTH [facility] MED TX & REGIMEN D649 ANEMIA 01-31-2017 [place] [facility] UNSPECIFIED SERV [facility] K922 GASTROINTES 01-30-2017 [place] [facility] TINAL SERV HEMORRHAGE [facility]OUNDATION UNSPECIFIED E1165 TYPE 2 01-29-2017 [facility] DIABETES [facility] MELLITUS PHYSICIANS WITH PLLC HYPERGLYCEM IA G38300 PAIN IN 01-29-2017 [facility] RIGHT FOOT [facility] PLLC Z09126 PAIN IN 01-29-2017 [facility] LEFT FOOT [facility] PLLC R600 LOCALIZED 01-26-2017 [facility] EDEMA N EMERGENCY PHYS R739 HYPERGLYCEM 01-26-2017 [facility] IA N EMERGENCY UNSPECIFIED PHYS D62 ACUTE 01-15-2017 [place] [facility] POSTHEMORRH SERVICES AGIC ANEMIA K209 ESOPHAGITIS [...] AWAITING 01-12-2017 [facility] STATUS C54848 EFFUSION 12-27-2016 [facility] RIGHT ANKLE N EMERGENCY PHYS D86037 EFFUSION 12-27-2016 [facility] LEFT ANKLE N EMERGENCY PHYS N390 URINARY 12-20-2016 [facility] TRACT N EMERGENCY INFECTION PHYS SITE NOT SPECIFIED R0609 OTHER FORMS 12-20-2016 [facility] [place] OF DYSPNEA RADIOLOGY R110 NAUSEA 12-20-2016 [facility] N EMERGENCY PHYS R079 CHEST PAIN 12-16-2016 [place] [facility] UNSPECIFIED SERV [facility] R1084 GENERALIZED 12-16-2016 [place] [facility] ABDOMINAL SERV PAIN [facility] R9431 ABNORMAL 12-16-2016 [place] [facility] ELECTROCARD SERV IOGRAM FOUNDATION I8501 ESOPHAGEAL 11-22-2016 [place] [facility] VARICES SERV WITH [facility] BLEEDING R1310 DYSPHAGIA 11-22-2016 [place] [facility] UNSPECIFIED SERV [facility] Z0189 ENCOUNTER 11-22-2016 [place] [facility] OTHER SERV SPECIFIED [facility]OUNDATION SPECIAL EXAMINATION S K228 OTHER 11-21-2016 [place] [facility] SPECIFIED SERV DISEASES OF FOUNDATION ESOPHAGUS R490 DYSPHONIA 11-21-2016 [facility] F93136A OTH FORGEN 11-20-2016 [place] [facility] OBJ RESP [...] FINDING OF LUNG FIELD Z4682 ENCOUNTER 11-17-2016 [place] [facility] FITTING & SERV ADJUST [facility]OUND[facility] NON-VASCULA R CATHETER I2119 ST 11-16-2016 [place] [facility] ELEVATION SERV MN INVOLV FOUNDATION OTH CORONARY ART INF WALL [...] J9811 ATELECTASIS 11-13-2016 [facility] A1924KI OTHER 11-13-2016 [place] [facility] POSTPROCEDU SERV RAL [...] PRACTITIONE UNSPECIFIED R GR J849 INTERSTITIA 11-11-2016 [facility] L PULMONARY SERV DISEASE FOUNDATION UNSPECIFIED J984 OTHER 11-11-2016 [place] [facility] DISORDERS SERV OF LUNG FOUNDATION Z452 ENCOUNTER 11-09-2016 [place] [facility] ADJUSTMENT& SERV MGMT FOUNDATION VASCULAR ACCESS DEVICE E875 HYPERKALEMI 11-08-2016 S NURSE Javy Whitney GR I459 CONDUCTION 11-08-2016 [place] [facility] DISORDER SERV UNSPECIFIED FOUNDATION K920 HEMATEMESIS 11-08-2016 AC [facility], [facility] K8020 CALCULUS GB 11-07-2016 [place] [facility] W/O SERV CHOLECYSTIT FOUNDATION IS W/O OBSTRUCTION R188 OTHER 11-07-2016 [place] [facility] ASCITES SERV [facility] Z8719 PERSONAL 11-07-2016 [place] [facility] HISTORY SERV OTHER FOUNDATION DISEASES DIGESTIVE SYSTEM R0602 SHORTNESS 11-06-2016 [facility] R531 WEAKNESS 11-06-2016 [facility], [facility] M542 CERVICALGIA 10-21-2016 [facility] SERV [facility] M6281 MUSCLE 10-21-2016 [facility] WEAKNESS [facility] EMS R1030 LOWER 10-21-2016 [place] [facility] ABDOMINAL SERV PAIN FOUNDATION UNSPECIFIED R05 COUGH 10-09-2016 [facility] J189 PNEUMONIA 09-22-2016 [place] UNSPECIFIED MEDICAL ORGANISM IMAGING ASS Z09 ENC F/U 09-22-2016 [place] EXAM AFTR MEDICAL CMPL TX OTH IMAGING ASS THAN MALIG NEOPLSM R509 FEVER 09-19-2016 [place] UNSPECIFIED MEDICAL IMAGING ASS H1133 CONJUNCTIVA 07-28-2016 [facility] HEMORRHAGE PHYS BILATERAL R030 ELEVATED 07-28-2016 [facility] BLOOD-PRESS N EMERGENCY URE READING PHYS WITHOUT DX HTN R0789 OTHER CHEST 07-28-2016 [facility]IN N EMERGENCY PHYS L259KOW OTHER 07-28-2016 [facility] [place] SPECIFIED RADIOLOGY INJURIES THORAX INITIAL ENC H1032 UNSPECIFIED 07-24-2016 [facility] CONJUNCTIVI PHYSICIANS TIS LEFT [facility] EYE H1132 CONJUNCTIVA 07-22-2016 [facility] L N EMERGENCY HEMORRHAGE PHYS LEFT EYE G001LES CONTUSION 07-22-2016 [facility] OF N EMERGENCY ABDOMINAL PHYS WALL INITIAL ENCOUNTER E8342 HYPOMAGNESE 07-01-2016 [facility] TONI N EMERGENCY PHYS G0430 ACUTE 07-01-2016 [facility] NECROTIZING N EMERGENCY PHYS HEMORRHAGIC ENCEPHALOPA THY UNS R1110 VOMITING 06-28-2016 [place] [facility] UNSPECIFIED SERV FOUNDATION G4710 HYPERSOMNIA 06-11-2016 LINDA GALLO MD UNSPECIFIED CONSULTING SRV D490 NEOPLASM OF 06-07-2016 [place] [facility] UNS SERV BEHAVIOR FOUNDATION DIGESTIVE SYSTEM K766 PORTAL 06-07-2016 [place] [facility] HYPERTENSIO SERV N FOUNDATION R161 SPLENOMEGAL 06-07-2016 [place] [facility] Y NOT SERV ELSEWHERE [facility]OUNDATION CLASSIFIED G479 SLEEP 06-03-2016 [facility] R0683 SNORING 06-03-2016 [facility] R5383 OTHER 06-03-2016 [facility] C67992 PAIN IN 05-20-2016 [place] UNSPECIFIED FOOT & LIMB ANKLE CE R072 PRECORDIAL 05-16-2016 LINDA JOSIH MD CONSULTING SRV G4733 OBSTRUCTIVE 05-02-2016 [facility] SLEEP [facility]ILY [facility] ADULT [facility]YSIC[facility]ANS PEDIATRIC PLL Q45009F TOX EFF OTH 04-08-2016 [facility] GASES N EMERGENCY FUMES & PHYS VAPORS ACC INITIAL ENC M545 LOW BACK 03-04-2016 [facility] PAIN [facility]ILY PHYSICIANS PLL R112 NAUSEA WITH 03-04-2016 [facility] UNSPECIFIED R1033 PERIUMBILIC 02-28-2016 [facility] AL PAIN N EMERGENCY PHYS R5381 OTHER 01-29-2016 [facility] MALAISE N EMERGENCY PHYS R17 UNSPECIFIED 01-26-2016 [facility] HOSPI L0390 CELLULITIS 01-08-2016 [facility] UNSPECIFIED FAMILY PHYSICIANS PLLC M546 PAIN IN 11-10-2015 [facility] THORACIC N EMERGENCY SPINE PHYS G28562 MUSCLE 11-10-2015 [facility] SPASM OF N EMERGENCY BACK PHYS K6389 OTHER 09-05-2015 [facility] [place] SPECIFIED RADIOLOGY DISEASES OF INTESTINE B370 CANDIDAL 08-15-2015 [facility] STOMATITIS FAMILY PHYSICIANS PLL K222 ESOPHAGEAL 07-26-2015 [facility] OBSTRUCTION REGIONAL PHYSICIAN PRA K319 DISEASE OF 07-26-2015 [place] STOMACH AND ANESTHESIA DUODENUM GROUP PS UNSPECIFIED K449 DIAPHRAGMAT 07-26-2015 [place] IC HERNIA ANESTHESIA W/O GROUP PS OBSTRUCTION OR GANGRENE 4660 ACUTE 06-07-2015 [facility] BRONCHITIS [facility] 95653 ABDOMINAL 06-07-2015 [facility] PAIN, FAMILY GENERALIZED PHYSICIANS PLLC 7242 LUMBAGO 06-01-2015 [facility] [place] [facility] 7862 COUGH 06-01-2015 [facility] [place] [facility] 58879 ABDOMINAL 06-01-2015 [facility] [place] PAIN RIGHT RADIOLOGY LOWER QUADRANT 71694 DIAB W/O 05-31-2015 [facility] COMP TYPE N EMERGENCY II/UNS NOT PHYS STATED [facility] 4019 UNSPECIFIED 05-31-2015 [place] [facility] N 4549 ASYMPTOMATI 05-31-2015 [place] C VARICOSE [facility] 5715 CIRRHOSIS 05-31-2015 [facility]OS[facility]ITAL MENTION OF ALCOHOL 90306 OSTEOARTHRO 05-31-2015 [place] S UNSPEC COMMUNITY WHETHER HOSPITAL GEN/LOC UNSPEC SITE 7213 LUMBOSACRAL 05-31-2015 [facility] N EMERGENCY SPONDYLOSIS PHYS WITHOUT MYELOPATHY 70063 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 [facility] 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 53973 OTHER 05-31-2015 [place] ASCITES [facility] V5867 LONG-TERM 05-31-2015 [place] USE [facility] V5869 LONG-TERM 05-31-2015 [place] (CURRENT[facility] USE OF [facility]OSPITAL OTHER MEDICATIONS 33229 NAUSEA WITH 05-26-2015 [place] VOMITING [facility] 29163 ABDOMINAL 05-26-2015 [facility] PA[facility] RIGHT N EMERGENCY UPPER PHYS QUADRANT 00771 ABDOMINAL 05-26-2015 [facility] PAIN, LEFT N EMERGENCY LOWER PHYS QUADRANT 43273 ABDOMINAL 05-26-2015 [facility] PAIN, N EMERGENCY EPIGASTRIC PHYS V145 PERSONAL 05-26-2015 [place] [facility] COMM[facility]ITY ALLERGY TO HOSPITAL NARCOTIC AGENT 27456 ABDOMINAL 05-04-2015 [facility] UNSPECIFIED SITE 5718 OTHER 04-12-2015 [place] [facility]IC [facility] C LIVER DISEASE 55553 UNSPEC 04-12-2015 [facility] INJURY LIVR N EMERGENCY W/O PHYS MENTION OPN WOUND IN CAV 16106 DIAB W/O 03-27-2015 [facility] MENTION FAMILY COMP TYPE PHYSICIANS II/UNS TYPE PLLC [facility] 29406 DIVERTICULI 03-27-2015 [facility] TIS OF FAMILY COLON PHYSICIANS PLLC 5589 OTH&UNSPEC 03-20-2015 [facility] NONINFECTIO N PHYSICIAN US SERVI GASTROENTER ITIS&COLITI S 5723 PORTAL 03-16-2015 [facility] [place] HYPERTENSIO RADIOLOGY N 96265 ABDOMINAL 03-16-2015 [facility] PAIN, N EMERGENCY PERIUMBILIC PHYS V146 PERSONAL 03-16-2015 [place] [facility] ALLER[facility] TO [facility]OSP[facility] ANALGESIC AGENT 5289 OTHER&UNSPE 02-14-2015 [facility] CIFIED N EMERGENCY DISEASES PHYS THE ORAL SOFT TISSUES 5290 GLOSSITIS 02-14-2015 [facility] N EMERGENCY PHYS 2382 NEOPLASM OF 01-24-2015 [facility] OF PHYSICIANS SKIN PLLC 4871 INFLUENZA 10-31-2014 [facility] WITH OTHER N PHYSICIAN RESPIRATORY SERVI MANIFESTATI ONS 84605 FEVER 10-31-2014 [facility] UNSPECIFIED N PHYSICIAN SERVI 486 PNEUMONIA, 10-30-2014 [facility] ORGANISM N EMERGENCY UNSPECIFIED PHYS 21781 OBESITY, 08-24-2014 [facility] NURSE UNSPECIFIED PRACTITIONE R GR V069 NEED PROPH 07-28-2014 [facility] W/UNSPEC [facility] DEPT COMB RESHMA VACCINE 00541 DISORDER OF 07-05-2014 [facility] [place] BONE AND RADIOLOGY CARTILAGE UNSPECIFIED 7948 NONSPECIFIC 07-05-2014 [facility] [place] ABNORMAL RADIOLOGY RESULTS LIVR FUNCTION STUDY 47287 DYSFUNCTION 06-29-2014 [place] OF PHYSICIAN EUSTACHIAN PRACTICE L TUBE 38814 SUBJECTIVE 06-29-2014 [place] TINNITUS PHYSICIAN PRACTICE L 11678 SENSORINEUR 06-29-2014 [place] AL HEARING PHYSICIAN LOSS [...] PH AR MA CY #3 01 6 WA 65 08 09 12 2 00 KE [...] ve G 79 20 20 04 [place] MN 75 17 17 96 X 9 17 [...] 80 2- 1- 00 01 UC ve MN 21 20 20 03 [place] DE 61 [...] 20 5- 4- 00 01 UC ve MN 76 20 20 02 [place] N 01 [...] 80 9- 8- 00 01 UC ve MN 21 20 20 03 [place] DE 61 [...] OR 20 9- 1- 01 UC ve MN 76 20 20 02 [place] N 01 [...] 20 3- 3- 00 01 UC ve MN 76 20 20 02 [place] N 01 [...] ve G 79 20 20 97 [place] MN 75 17 17 10 X 9 96 CV 75 S -2 PH 5 AR KW MA IK CY PE N LL C, DB A CV S PH AR MA CY #3 01 6 FU 00 05 06 30 30 00 KE Ac RO 37 -2 -2 .0 00 NT ti SE 80 4- 3- 00 01 UC ve MN 21 20 20 03 [place] DE 61 [...] AR MA CY #3 01 6 MN 57 05 06 30 30 00 KE [...] AR MA CY #3 01 6 MN 57 04 05 30 30 00 KE [...] 20 3- 2- 00 00 UC ve MN 76 20 20 99 [place] N 01 [...] ve G 79 20 20 97 [place] MN 75 17 17 10 X 9 96 [...] AR MA CY #3 01 6 MN 57 03 04 30 30 00 KE [...] 20 7- 7- 00 00 UC ve MN 76 20 20 99 [place] N 01 [...] SE 44 7- 7- 26 UC ve MN 29 20 20 25 [place] DE 93 [...] 80 1- 0- 00 00 UC ve MN 20 20 20 97 [place] DE 81 [...] 00 [place] RA 30 17 17 11 MN 5 65 CV DE S PH 10 AR MA MG CY TA LL BL C, ET DB A CV S PH AR MA CY #3 01 6 MN 57 02 02 30 30 00 KE [...] 80 1- 0- 00 00 UC ve MN 20 20 20 97 [place] DE 81 17 17 66 0 62 CV 20 S PH MG AR MA TA CY BL ET LL C, DB A CV S PH AR MA CY #3 01 6 ME 68 01 02 60 30 00 KE Ac TF 38 -1 -1 .0 00 NT ti OR 20 0- 0- 00 00 UC ve MN 76 20 20 99 [place] N 01 [...] ve G 79 20 20 97 [place] MN 75 16 17 10 X 9 96 [...] Procedure DOS Code Location Performer Comment RADEX 54708 [place] ABDOMEN 1 7 MEDICAL SERV ANTEROPOS FOUNDATIO TERIOR N VIEW BLOOD 93718 [place] MATTHEW SMEAR 7 MEDICAL PERIPHERA SERV L INTERP FOUNDATIO PHYS N W/WRIT REPORT INITIAL [address] [place] [address] CLARISSA [facility] CARE/DAY PHYSICIAN CIARAALAL 70 SERVI MINUTES THERAPEUT 59104 [place] IC 7 HEALTHCAR HEALTHCAR PROPHYLAC E E TIC/DX [facility] INJECTION SUBQ/IM BLOOD 53655 [place] COUNT 7 [facility]ALTH[facility] HEALTHCAR COMPLETE E E AUTOMATED [facility] [place] [address] [place] LIPASE 7 HEALTHCAR HEALTHCAR E E [facility] COMPREHEN 83892 [place] [facility] SIVE 7 [facility] HEALTH[facility] METABOLIC E E PANEL [facility] URNLS DIP 36536 [place] 7 HEALTHCAR HEALTHCAR STICK/TAB E E LET RGNT [facility] AUTO W/O MICROSCOP Y ONDANSETR Q0162 [place] ON 1 MG 7 HEALTHCAR HEALTHCAR ORL NOT E E EXCEED 48 [facility] HR DOSE REG FOR DIAB A5513 [facility] CENTRAL ONLY MX 7 BRACE BRACE DNSITY PROSTH PROSTH INSRT INC INC CSTM MOLD CSTM EA DIAB ONLY A5500 [facility]EN[facility]AL FIT CSTM 7 [facility] PREP&SPL PROSTH PROSTH SHOE MX INC INC DNSITY INSRT OBSERVATI 30005 [facility] ON/INPATI 7 MEDICINE [facility] ENT [facility] HOSPITAL O [place] [address] [place] [address] [facility] BENSON DAY ABDOMEN & 7 RADIOLOGY III PELVIS W/O CONTRAST MATERIAL BLOOD 46711 DILEEP FALK COUNT 7 [facility] AUTOMATED COMPREHEN [address] [facility] PANEL PROTHROMB 40856 DILEEP FALK IN TIME 7 [facility] [place] [address] DILEEP FALK AMMONIA [address] [place] [address] HOSPITAL PROTHROMB 72932 DILEEP SORTOON IN TIME 7 [facility]OSPITAL GLUC BLD 65732 DILEEP SORTOON GLUC MNTR 7 [facility] CLEARED FDA SPEC HOME USE OBSERVATI 11746 [facility] ON CARE 7 MEDICINE DISCHARGE SERVICES O MANAGEMEN T GLUC BLD 93695 DILEEP SORTOON GLUC MNTR 7 [facility] CLEARED FDA SPEC HOME USE COMPREHEN 5[address]7 [address]EP REMYE [address] [place] [address] [place] [address] DILEEP FALK AMMONIA [address] [place] [address] HOSPITAL PROTHROMB 35273 DILEEP FALK IN TIME 7 [facility] HOSPITAL BLOOD 70180 DILEEP FALK COUNT [address] [place] [address] HOSPITAL AUTO&AUTO DIFRNTL WBC THROMBOPL 54707 DILEEP FALK ASTIN [address] [place] [address] PARTIAL PLASMA/WH OLE BLOOD URNLS DIP 58720 DILEEP FALK [address] [place] [address] STICK/TAB HOSPITAL HOSPITAL LET REAGENT AUTO MICROSCOP Y BLOOD 56829 DILEEP FALK COUNT [address] [place] [address] HOSPITAL AUTO&AUTO DIFRNTL WBC PROTHROMB 44594 DILEEP FALK IN TIME 7 [facility] [place] [address] DILEEP FALK LIPASE [address] [place] [address] [place] [address] DILEEP FALK AMMONIA [address] [place] [address] HOSPITAL COMPREHEN [address] HOSPITAL PANEL INITIAL 68359 [facility] OBSERVATI 7 MEDICINE ON SERVICES CARE/DAY O 70 MINUTES BLD BANK 25516 [facility] VALENZUELA PHYS SVCS 7 MEDICAL DIFFC SERV CROSS FOUNDATIO MATCH&/EV N AL REP ANES 16379 [place] UPPER GI 7 MEDICAL ENDOSCOPY SERVICES PROXIMAL TO DUODENUM ESOPHAGOG 58040 [place] SUZAN KEMPODUOD 7 MEDICAL ENOSCOPY SERV TRANSORAL FOUNDATIO N DIAGNOSTI C INITIAL 19593 [facility] 7 CLARISSA ADRIAN CARE/DAY PHYSICIAN DECALVO 70 SERVI MINUTES BLD BANK 02531 [place] NICOLAS PHYS SVCS 7 MEDICAL DIFFC SERV CROSS FOUNDATIO MATCH&/EV N AL REP BLOOD 19221 [facility] COUNT [address] [place] [address] AUTOMATED COMPREHEN 75744 [facility] SIVE [address] [place] [address] PANEL RADIOLOGI 21286 [facility] [place] OLGA C EXAM 7 RADIOLOGY CHEST 2 VIEWS FRONTAL&L ATERAL DUP-SCAN 05561 [place] ROBERTH ARTL TIMOTHY 7 MEDICAL ABDL/PEL/ SERV SCROT&/RP FOUNDATIO R ORGN N COM RADIOLOGI 44059 [place] MERHAR C EXAM 7 MEDICAL CHEST 2 SERV VIEWS FOUNDATIO FRONTAL&L N ATERAL ECG 70294 [place] NIESHA ROUTINE 7 MEDICAL ECG SERV W/LEAST FOUNDATIO 12 LDS N I&R ONLY DUP-SCAN 12460 [place] WEBBER ARTL TIMOTHY 7 MEDICAL ABDL/PEL/ SERV SCROT&/RP FOUNDATIO R ORGN N [facility] 94997 [place] AVALL[place] DISCHARGE 7 MEDICAL DAY SERV MANAGEMEN FOUNDATIO T > 30 N MIN SBSQ 16351 [place] [facility] 7 MEDICAL CARE/DAY SERV 35 FOUNDATIO MINUTES N SWALLOWIN 93621 [place] DL BYNUMCJ 7 MEDICAL W/CINERAD SERV IOGRAPY/V FOUNDATIO IDRADIOG N SBSQ 10036 [place] [address] MEDICAL CARE/DAY SERV 25 FOUNDATIO MINUTES N SBSQ 44590 [place] [address] MEDICAL CARE/DAY SERV 25 FOUNDATIO MINUTES N ECG 26197 [place] BENSON ROUTINE 7 MEDICAL ECG SERV W/LEAST FOUNDATIO 12 LDS N I&R ONLY RADIOLOGI 94639 [place] ROSMERYPAULINE C 7 MEDICAL AYA EXAMINATI SERV ON CHEST FOUNDATIO SINGLE N VIEW FRONTAL RADIOLOGI 65365 [place] ZEKE C 7 MEDICAL EXAMINATI SERV ON CHEST FOUNDATIO SINGLE N VIEW FRONTAL ECG 70020 [place] DAMIAN ROUTINE 7 MEDICAL ECG SERV W/LEAST FOUNDATIO 12 LDS N I&R ONLY RADIOLOGI 84614 [place] ALANIS C 7 MEDICAL EXAMINATI SERV ON CHEST FOUNDATIO SINGLE N VIEW FRONTAL CRITICAL 59860 [place] ALONDRA CARE 7 MEDICAL ILL/INJUR SERV ED FOUNDATIO PATIENT N INIT 30-74 MIN RADIOLOGI 70722 [place] TREVON C 7 MEDICAL EXAMINATI SERV ON CHEST FOUNDATIO SINGLE N VIEW FRONTAL CRITICAL 46731 [place] AL[facility] CARE 7 MEDICAL ILL/INJUR SERV ED FOUNDATIO PATIENT N INIT 30-74 MIN CRITICAL 83322 [place] ALONDR[facility] CARE 7 MEDICAL ILL/INJUR SERV ED FOUNDATIO PATIENT N INIT 30-74 MIN COLONOSCO 07871 [place] ANNELIESE PY FLX DX 7 MEDICAL Y W/COLLJ SERV SPEC WHEN FOUNDATIO PFRMD N RADIOLOGI 50237 [place] ONEAL C 7 MEDICAL EXAMINATI SERV ON CHEST FOUNDATIO SINGLE N VIEW FRONTAL RADEX 93452 [place] DL ABDOMEN 1 7 MEDICAL SERV ANTEROPOS FOUNDATIO TERIOR N VIEW ESOPHAGOG 66094 [place] ANNELIESE ASTRODUOD 7 MEDICAL Y ENOSCOPY SERV TRANSORAL FOUNDATIO N DIAGNOSTI C RADEX 08110 [place] DL ABDOMEN 1 7 MEDICAL SERV ANTEROPOS FOUNDATIO TERIOR N VIEW RADIOLOGI 92874 [place] TREVON C 7 MEDICAL EXAMINATI SERV ON CHEST FOUNDATIO SINGLE N VIEW FRONTAL DUP-SCAN 26741 [place] JESSICA ARTL TIMOTHY 7 MEDICAL ABDL/PEL/ SERV SCROT&/RP FOUNDATIO R ORGN N COM SBSQ 97925 [facility] 7 NURSE CARE/DAY PRACTITIO 25 NER GR MINUTES CRITICAL 13864 [place] ALONDR[facility] CARE 7 MEDICAL ILL/INJUR SERV ED FOUNDATIO PATIENT N INIT 30-74 MIN CRITICAL 50500 [place] ALONDR[facility] CARE 7 MEDICAL ILL/INJUR SERV ED FOUNDATIO PATIENT N INIT 30-74 MIN RADIOLOGI 69052 [place] INDU C 7 MEDICAL EXAMINATI SERV ON CHEST FOUNDATIO SINGLE N VIEW FRONTAL RADIOLOGI 12756 [place] ONEAL C 7 MEDICAL EXAMINATI SERV ON CHEST FOUNDATIO SINGLE N VIEW FRONTAL CRITICAL 98682 [place] ALONDRA CARE 7 MEDICAL ILL/INJUR SERV ED FOUNDATIO PATIENT N INIT 30-74 MIN SBSQ 74910 [facility] 7 NURSE CARE/DAY PRACTITIO 35 NER GR MINUTES ECG 77300 [place]EN[place] ROUTINE 7 MEDICAL ECG SERV W/LEAST FOUNDATIO 12 LDS N I&R ONLY RADIOLOGI 99492 [place] RONAN C 7 MEDICAL EXAMINATI SERV ON CHEST FOUNDATIO SINGLE N VIEW FRONTAL RADIOLOGI 60558 [place] RONAN C 7 MEDICAL EXAMINATI SERV ON CHEST FOUNDATIO SINGLE N VIEW FRONTAL RADEX 68243 [place] JESSICA ABDOMEN 1 7 MEDICAL SERV ANTEROPOS FOUNDATIO TERIOR N VIEW ECG 28305 [place] ROUTINE 7 MEDICAL ECG SERV W/LEAST FOUNDATIO 12 LDS N I&R ONLY RADIOLOGI 33653 [place] WYNNE C 7 MEDICAL MONA EXAMINATI SERV ON CHEST FOUNDATIO SINGLE N VIEW FRONTAL SERVICES 50268 [facility] PROVIDED 7 PHYSICIAN U BTW 10 S, PLLC PM&8 AM AT 24-HR FACI INITIAL 87137 [facility] 7 NURSE CONSULT PRACTITIO NEW/ESTAB NER GR PT 80 MIN AMB A0427 [facility] SERVICE 7 AMBULANCE AMBULANCE ALS SERVICE SERVICE EMERGENCY TRANSPORT LEVEL 1 BLD BANK 36198 [facility] 7 MEDICAL AUTHJ SERV DEVIJ FOUNDATIO STANDARD N REPRT GROUND A0425 [place] MILEAGE 7 AMBULANCE AMBULANCE PER SERVICE SERVICE STATUTE MILE GROUND A0425 [facility] MILEAGE 7 AMBULANCE AMBULANCE PER SERVICE SERVICE STATUTE MILE AMB A0427 [facility] SERVICE 7 AMBULANCE AMBULANCE ALS SERVICE SERVICE EMERGENCY TRANSPORT LEVEL 1 CRITICAL 49508 [facility] CARE 7 PHYSICIAN U ILL/INJUR S, PLLC ED PATIENT INIT 30-74 MIN GROUND A0425 [facility]ULANCE AMBULANCE PER SERVICE SERVICE STATUTE MILE AMBULANCE A0429 [facility] SERVICE 7 AMBULANCE AMBULANCE BLS SERVICE SERVICE EMERGENCY TRANSPORT SERVICES 34319 [facility] PROVIDED 7 PHYSICIAN U BTW 10 S, PLLC PM&8 AM AT 24-HR FACI RADIOLOGI 57475 [place] [facility] EXAM 7 MEDICAL CHEST 2 IMAGING VIEWS ASS FRONTAL&L ATERAL GROUND A0425 [facility] MILEAGE 7 [place] PER [facility] STATUTE EMS EMS MILE OBSERVATI 84818 [facility] ON CARE 7 MEDICINE A DISCHARGE SERVICES O MANAGEMEN T INITIAL 68965 [facility] OBSERVATI 7 MEDICINE A ON SERVICES CARE/DAY O 70 MINUTES RADIOLOGI 59759 [facility] [place] SCALF C EXAM 7 RADIOLOGY CHEST 2 VIEWS FRONTAL&L ATERAL RADIOLOGI 86491 [place] [facility] EXAM 7 MEDICAL CHEST 2 IMAGING VIEWS ASS FRONTAL&L ATERAL RADIOLOGI 91967 [place] C EXAM 7 MEDICAL CHEST 2 IMAGING VIEWS ASS FRONTAL&L ATERAL AMB A0427 [place] SERVICE 7 AMBULANCE AMBULANCE ALS SERVICE SERVICE EMERGENCY TRANSPORT LEVEL 1 GROUND [id number] [facility] MILEAGE 7 AMBULANCE AMBULANCE PER SERVICE SERVICE STATUTE MILE RADEX 13052 [facility] [place] SCALF MARILIN RIBS 6 RADIOLOGY UNILATERA L 2 VIEWS PROTHROMB 26328 [place] [facility] IN TIME 6 [facility] COMPREHEN 98721 [place] [facility] SIVE 6 [facility] PANEL BLOOD 72087 [place] [facility] COUNT 6 [facility] AUTOMATED COLLECTIO 41406 DILEEP SORTOON N VENOUS 6 [facility] VENIPUNCT URE RADEX 63976 [facility] [place] RIBS UNI 6 RADIOLOGY RHO W/POSTERO ANT CH MINIMUM [address] [place] [address] [facility] [place] ABDOMEN & 6 RADIOLOGY RHO PELVIS W/O CONTRAST MATERIAL RADEX 74114 [facility] RIBS 6 CL[place]SA UNILATERA EMERGENCY L 2 VIEWS PHYS RADIOLOGI 89792 [facility] C 6 CL[place] EXAMINATI EMERGENCY ON CHEST PHYS SINGLE VIEW FRONTAL ECG 77433 [facility] ARNOLD ROUTINE 6 CLARISSA LAST ECG EMERGENCY W/LEAST PHYS 12 LDS I&R ONLY RADIOLOGI 24149 [facility] [place] C 6 RADIOLOGY RHO EXAMINATI ON CHEST SINGLE VIEW FRONTAL ECG 67748 [place] DAMIAN LASHAWN ROUTINE 6 MEDICAL ECG SERV W/LEAST FOUNDATIO 12 LDS N I&R ONLY RADIOLOGI 06546 [place] BRENNAN C EXAM 6 MEDICAL MARY KATE CHEST 2 SERV VIEWS FOUNDATIO FRONTAL&L N ATERAL HEMOGLOBI 13028 KMSF JIM N 6 NURSE REGINALD GREEN PRACTITIO DANE A1C NER GR POLYSOM 90751 LINDA GALLO GALLO LINDA 6/>YRS 6 MD SLEEP 4/> CONSULTIN ADDL G SRV SYBIL ATTND MRI 45238 [place] BURGOS JENNIFER ABDOMEN 6 MEDICAL W/O & SERV W/CONTRAS FOUNDATIO T N MATERIAL POLYSOM 03355 MACARIOON [facility]OUR[facility]ON 6/>YRS 6 [facility] SLEEP 4/> HOSPITAL HOSPITAL ADDL SYBIL ATTND BLOOD 30913 [facility] COUNT 6 [facility] AUTOMATED PROTHROMB 94384 MACARIOON MACARIOON IN TIME 6 [facility] COMPREHEN 68870 DILEEP FALK SIVE 6 [facility] PANEL COLLECTIO 56869 BOFABBY SORTOON N VENOUS 6 [facility] VENIPUNCT URE ECHO 11974 LINDA GALLO GALLO LINDA TTHRC R-T 6 2D CONSULTIN W/WOM-MOD G SRV E COMPL SPEC&COLR D COMPREHEN [address] SIVE 6 GROUP [facility] PANEL COLLECTIO 39775 MANUEL GREEN JAMIE N VENOUS 6 FAMILY BLOOD PHYSICIAN VENIPUNCT S PLLC URE INITIAL 01212 [facility] DIAZ OBSERVATI 6 CLARISSA ISIDRA ON PHYSICIAN CARE/DAY SERVI 30 MINUTES RADIOLOGI 99036 [facility] [place] SHAY C 6 RADIOLOGY III MARY KATE EXAMINATI ON CHEST SINGLE VIEW FRONTAL RADIOLOGI 04662 [facility] SWINEY C 6 CLARISSA PAT EXAMINATI EMERGENCY ON CHEST PHYS SINGLE VIEW FRONTAL ECG 80493 [facility] SWINEY ROUTINE 6 CLARISSA PAT ECG EMERGENCY W/LEAST PHYS 12 LDS I&R ONLY RADIOLOGI 89477 [facility] [place] SCALF MARILIN C EXAM 6 RADIOLOGY CHEST 2 VIEWS FRONTAL&[place] [address] [facility] HAPTOGLOB 6 Y Y IN [facility] QUANTITAT NAIF LACTATE 28824 [facility] DEHYDROGE 6 Y Y NASE LDH [facility] [address] [facility] GAMMAGLOB 6 Y Y ULIN IGA [facility] IGD IGG IGM EACH BLOOD 55125 [facility] COUNT 6 Y Y RETICULOC [facility] YTES AUTO 1/> [place] [address] [facility] FERRITIN 6 Y Y [facility] IMMUNOASS 34411 [facility] AY 6 Y Y ANALYTE [facility] QUAL/[place] M[place] [address] [facility] UNIVERS FREE 6 Y Y THYROXINE [facility] CERULOPLA 40027 [facility] SMIN 6 Y [place] [facility] [place] [address] [facility] FOLIC 6 Y Y ACID RBC [facility] [place] [address] [facility] IRON [address] [facility] COLLECTIO 99530 [facility] UNIVERS N VENOUS 6 Y Y BLOOD [facility] VENIPUNCT URE COLD 78661 [facility] AGGLUTINI 6 Y Y [facility] HEPATITIS 81842 [facility] B SURF 6 [facility] HBSAB ANTINUCLE 62440 [facility] AR 6 Y Y ANTIBODIE [facility] S COLLINS HEPATITIS 26540 [facility] A 6 [facility] HAAB GENERAL 39051 [facility] 6 [place] [address] [place] SCAL[place] MARILIN ABDOMEN & 5 RADIOLOGY PELVIS W/CONTRAS T MATERIAL ESOPHAGOG 07767 DAYNA TURNER ASTRODUOD [address] [place] [address] ENOSCOPY PHYSICIAN TRANSORAL PRA DIAGNOSTI C ANES 94113 [place] [facility] UPPER GI 5 ANESTHESI ENDOSCOPY A GROUP PROXIMAL PS TO DUODENUM ONDANSETR Q0162 [facility] ON 1 MG 5 [facility] HOSPITAL EXCEED 48 HR DOSE REG IAADIADOO [address] [facility] HOSPITAL HI OSM Q9963 [facility] CONTRST [address] [place] [address] HOSPITAL [phone] MG/ML IODINE CONC ML RADEX 44023 [facility] SPINE [address] [place] [address] AL 2/3 [place] [address] [facility] AMYLASE [address] [place] [address] [place] [address] [facility] LIPASE [address] [place] [address] GLUC BLD 68812 [facility] GLUC MNTR [address] [place] [address] HOSPITAL CLEARED FDA SPEC HOME USE COMPREHEN 41452 [facility] SIVE [address] [place] [address] [facility] HOSPITAL PANEL BLOOD 06144 [facility] COUNT [address] [place] [address] HOSPITAL AUTO&[place] [address] [facility] ABDOMEN & 5 [facility] PELVIS [facility] HOSPITAL W/O CONTRAST MATERIAL URNLS DIP [address] [facility] HOSPITAL LET REAGENT AUTO MICROSCOP Y RADIOLOGI 13351 [facility] C [address] [place] [address] [facility] ON CHEST SINGLE VIEW FRONTAL COLLECTIO 83283 DILEEP FALK N VENOUS 5 [facility] HOSPITAL VENIPUNCT URE COLLECTIO 50601 [facility] FALK N VENOUS 5 [facility] HOSPITAL VENIPUNCT URE INJECTION J1885 [facility] [address] [facility] TROMETHAM INE PER 15 MG URNLS DIP [address] [place] [address] [facility] HOSPITAL LET REAGENT AUTO MICROSCOP Y BLOOD 24649 [facility] COUNT 5 [facility] H[facility]PITAL AUTO&AUTO DIFRNTL WBC COMPREHEN 17293 [facility] F[facility] SIVE [address] [place] [address] [place] [address] [facility] LIPASE [address] [place] [address] [place] [address] [facility] LIPASE 5 Y Y HOSPITAL HOSPITAL INJECTION J2405 [facility] UNIVERS 5 Y Y [facility] ON HCL PER 1 [place] [address] [facility] LACTATE 5 Y Y HOSPITAL HOSPITAL COMPREHEN 63907 [facility] 5 Y Y [facility] PANEL BLOOD 33070 [facility] UNIVERS COUNT 5 Y Y [facility] HOSPITAL AUTO&[place] [address] UN[facility] UNIVERS ABDOMINAL 5 Y Y REAL HOSPITAL HOSPITAL TIME W/IMAGE DOCUMENTA TION THER 00120 UNIVERS UNIVERS PROPH/DX 5 Y Y NJX IV HOSPITAL HOSPITAL PUSH SINGLE/1S T SBST/[place] [address] [facility] [place] ABDOMINAL 5 RADIOLOGY RHO REAL TIME W/[place] [address] [facility] ABDOMINAL [address] [facility] HOSPITAL TIME W/IMAGE DOCUMENTA TION INJECTION J[address] HYDROGOOD [facility] JEANNINE UP TO 4 MG INJECTION J2405 [address] ON HCL PER 1 MG HOSPITAL 85222 [facility] DISCHARGE 5 CLARISSA EDGAR IGN DAY PHYSICIAN MANAGEMEN SERVI T 30 MIN/< SBSQ 88546 [facility] 5 CLARISSA HUG CARE/DAY PHYSICIAN 25 SERVI MINUTES SBSQ 41726 [facility] 5 CL[place]ISSA HUG CARE/DAY PHYSICIAN 35 SERVI MINUTES INITIAL 08752 [facility] 5 CLARISSA A GOP CARE/DAY PHYSICIAN [address] [place] [address] [facility] [place] ABDOMEN & 5 RADIOLOGY RAY PELVIS W/O CONTRAST MATERIAL BLOOD [address]121 [address] COUNT 5 GROUP GROUP [facility]TE [facility] AUTO&AUTO DIFRNTL WBC CYANOCOBA 22388 [address] NAHOMI 5 GROUP GROUP VITAMIN [facility] B-12 COMPREHEN 05311 [address] SIVE 5 GROUP GROUP MET[facility]OLIC [facility] Vidable PANEL HEMOGLOBI [address] N 5 GROUP GROUP GLYCOSYLA [facility] DANE A1C COLLECTIO 46702 MANUEL GREEN JAMIE N VENOUS 5 [facility] PHYSICIAN VENIPUNCT S PLLC URE COLLECTIO 73603 DILEEP FALK N VENOUS 5 [facility] VENIPUNCT URE GLUC BLD 46635 DILEEP SORTOON GLUC MNTR [address] [place] [address] CLEARED FDA SPEC HOME USE COMPREHEN [address] [place] [address] DILEEP SORTOON LIPASE [address] [place] [address] PANEL GLUC BLD 99746 MACARIOJOCELYNN MACARIOON GLUC MNTR [address] [place] [address] CLEARED FDA SPEC HOME USE INITIAL 42544 [facility] OBSERVATI 5 CLARISSA HERNÁNDEZ IGN ON PHYSICIAN CARE/DAY SERVI 70 MINUTES BLOOD 97096 DILEEP GIPSON PET COUNT 5 [facility] AUTOMATED PRESSURIZ 36754 DILEEP FALK ED/NONPRE [address] [place] [address] HOSPITAL INHALATIO N TREATMENT NONINVASI 57861 [facility] VE [address] [place] [address] EAR[facility]PULSE HOSPITAL HOSPITAL OXIMETRY SINGLE DETER URNLS DIP [address] [facility] HOSPITAL LET REAGENT AUTO MICROSCOP Y RADIOLOGI 63070 [facility] [place] C EXAM 5 RADIOLOGY RHO CHEST 2 VIEWS FRONTAL&L ATERAL GLUC BLD 74382 [facility] GLUC MNTR 5 [facility] HOSPITAL CLEARED FDA SPEC HOME USE NATRIURET 03110 [facility] IC [address] [place] [address] [facility] [address] [facility] LIPASE [address] [place] [address] [place] [address] [facility] AMYLASE [address] [place] [address] HOSPITAL IAADIADOO [address] HOSPITAL GENERAL [address] HOSPITAL CULTURE 42105 [facility] BACTERIAL [address] [place] [address] [facility] HOSPITAL AEROBIC W/ID ISOLATES IAADIADOO [address] [facility] CC GROUP A HOSPITAL [id number] [facility] OBSERVATI [address] [place] [address] HOSPITAL HOSPITAL SERVICE PER HOUR HEMOGLOBI 43476 KMSF JOSE ANTONIO LUISA N 4 NURSE PETER VELA A1C NER GR IM ADM 12770 [facility] PR[facility] ID [facility] SUBQ/IM HLTH DEPT HLTH DEPT NJXS 1 RESHMA RESHMA VACCINE IM ADM 30810 [facility] PRQ ID 4 [facility] SUBQ/IM HLTH DEPT HLTH DEPT NJXS EA RESHMA RESHMA VACCINE HEPB 45632 [facility] VACCINE 4 [facility] ADULT 3 HLTH DEPT HLTH DEPT DOSE RESHMA RESHMA SCHEDULE FOR IM USE HEPA 22212 [facility] VACCINE 4 [facility] ADULT HLTH DEPT HLTH DEPT DOSE FOR RESHMA RESHMA INTRAMUSC ULAR USE RADEX 41843 [facility] [place] ABDOMEN 4 RADIOLOGY RHO COMPL W/DCBTS&/ [place] [address] [facility] [place] ABDOMINAL 4 RADIOLOGY RHO REAL TIME W/IMAGE DOCUMENTA TION DXA BONE 44779 [facility] [place] DENSITY 4 RADIOLOGY RHO STUDY 1/> SITES AXIAL SKEL COMPRE 89908 [place] F[facility]AN SET AUDIOMETR 4 PHYSICIAN Y PRACTICE THRESHOLD L EVAL SP RECOGNIJ TYMPANOME 93206 [place] FRE[facility]AN SET TRY 4 PHYSICIAN PRACTICE L HEPATITIS 07279 [facility] 4 Y Y ANTIBODY [facility] HBSAB HEPATITIS 21090 [facility] Y Y ANTIBODY [facility] HAAB PROTHROMB 39614 [facility] IN TIME Y Y HOSPITAL HOSPITAL Encounters Encounter Start End Date Code Location Performer Type Date EMERGENCY 81348 [facility] DEPT 7 7 [place] VISIT EMERGENCY HIGH PHYS SEVERITY& THREAT FUN EMERGENCY 14167 [facility] 7 7 CLARISSA DEPARTMEN EMERGENCY T VISIT PHYS HIGH/URGE NT SEVERITY EMERGENCY 82801 [facility] DEPT 7 7 MEDICAL VISIT SERV HIGH FOUNDATIO SEVERITY& N THREAT FUN EMERGENCY 44410 7 7 [facility] DEPARTMEN E T VISIT HOSPITALS HIGH/URGE NT SEVERITY [facility]OSPITAL - 7 7 [facility] OUTPATIEN E T HOSPITALS EMERGENCY 55087 [facility] DEPT 7 7 CLARISSA VISIT EMERGENCY HIGH PHYS SEVERITY& THREAT FUN [facility]OSP[facility] 7 7 [facility] [place] [facility] 7 7 [facility] T EMERGENCY 02546 [place] DEPT 7 7 COMMUNITY VISIT HOSPITAL HIGH SEVERITY& THREAT FUN EMERGENCY 14620 [facility] 7 7 MEDICAL VISIT SERV HIGH FOUNDATIO SEVERITY& N THREAT FUNCJ OFFICE 55283 [facility] OUTPATIEN 7 7 FAMILY T VISIT PHYSICIAN 15 S PLLC MINUTES EMERGENCY 54688 [facility] 7 7 CLARISSA DEPARTMEN EMERGENCY T VISIT PHYS HIGH/URGE NT SEVERITY HOSPITAL [facility] - 7 7 [facility] INPATIENT E HOSPITALS EMERGENCY 66574 [facility] DEPT 7 7 MEDICAL VISIT SERV HIGH FOUNDATIO SEVERITY& N THREAT FUN [facility]OS[facility] EMERGENC[facility] 90307 [facility] 7 7 CLARISSA DEPARTMEN EMERGENCY T VISIT PHYS HIGH/URGE NT SEVERITY EMERGENCY 10337 [facility] 7 CL[place] VISIT EMERGENCY HIGH PHYS SEVERITY& THREAT FUNJ EMERGENCY 55640 [facility] DEPT 7 7 PHYSICIAN U VISIT S, PLLC HIGH SEVERITY& THREAT FUNCJ OFFICE 71278 [facility] SH[facility]LOAD[facility] CONSULTAT 7 7 MEDICAL ION SERV NEW/ESTAB FOUNDATIO PATIENT N 80 MIN EMERGENCY 93035 [facility] ROSEN[facility]UM 7 7 MEDICAL DEPARTMEN SERV T VISIT FOUNDATIO MODERATE N SEVERITY EMERGENCY 64422 [facility] GEREMIAS DEPT 7 7 CL[place]IS[place] VISIT EMERGENCY HIGH PHYS SEVERITY& THREAT FUNJ EMERGENCY 97073 [facility] 6 6 CLARISSA DEPARTMEN EMERGENCY T VISIT PHYS HIGH/URGE NT SEVERITY EMERGENCY 11442 [facility] 6 6 CLARISSA PAT DEPARTMEN EMERGENCY T VISIT PHYS HIGH/URGE NT SEVERITY [facility] OFF[facility] 80204 [facility] 6 6 FAMILY T VISIT PHYSICIAN 15 S PLLC MINUTES EMERGENCY 63805 [facility] MATIAS DEPT 6 6 [place] VISIT EMERGENCY HIGH PHYS SEVERITY& THREAT FUNJ EMERGENCY 16599 [facility] DEPT 6 6 CLARISSA LAST VISIT EMERGENCY HIGH PHYS SEVERITY& THREAT FUNCJ EMERGENCY [address] 6 6 MEDICAL DEPARTMEN SERV T VISIT FOUNDATIO LOW/MODER N SEVERITY OFFICE 53407 [facility]ria [facility] 6 6 NURSE REGINALD T VISIT PRACTITIO 25 NER GR MINUTES EMERGENCY 28545 [facility] 6 6 CLARISSA PAT DEPARTMEN EMERGENCY T VISIT PHYS HIGH/URGE NT SEVERITY [facility] 6 [facility] [place] - 6 6 [facility] OFF[facility] 65179 [facility] 6 6 FOOT & T NEW 30 ANKLE CE MINUTES OFFICE 89436 MAN[facility] ARNDT JAMIE [facility] 6 6 FAMILY T VISIT PHYSICIAN 15 S PLLC MINUTES EMERGENCY 22978 [facility] DARA INA 6 6 MEDICAL DEPARTMEN SERV T VISIT FOUNDATIO MODERATE N SEVERITY EMERGENCY 29644 [facility] DEPT 6 6 CLARISSA KATHY VISIT EMERGENCY HIGH PHYS SEVERITY& THREAT FUNCJ OFFICE 12282 MANUEL GREEN JAMIE OUTPATIEN 6 6 FAMILY T VISIT PHYSICIAN 25 S PLLC MINUTES EMERGENCY 45628 [facility] DEPT 6 6 CLARISSA PAT VISIT EMERGENCY HIGH PHYS SEVERITY& THREAT FUNCJ EMERGENCY 52600 [facility] DEPT 6 6 CLARISSA KATHY VISIT EMERGENCY HIGH PHYS SEVERITY& THREAT FUNCJ OFFICE 66322 [facility] 6 6 Y OF RTHY JERRY T VISIT [place] 15 HOSPI MINUTES OFFICE 71168 MANUEL ARNDT JAMIE OUTPATIEN 6 6 FAMILY T VISIT PHYSICIAN 15 S PLLC MINUTES EMERGENCY 12429 [facility] 6 6 CLARISSA PAT DEPARTMEN EMERGENCY T VISIT PHYS HIGH/URGE NT SEVERITY HOSPITAL [facility] - 6 6 [facility] T OFFICE 26238 MANUEL AYALA OUTPATIEN 5 5 FAMILY T VISIT PHYSICIAN 15 S PLLC MINUTES OFFICE 03108 MANUEL GREEN JAMIE OUTPATIEN 5 5 FAMILY T VISIT PHYSICIAN 25 S PLLC MINUTES OFFICE 26814 MANUEL RODRIGUEZF OUTPATIEN 5 5 FAMILY T VISIT PHYSICIAN 15 S PLLC MINUTES EMERGENCY 14330 [facility] 5 5 CLARISSA COLLINS VISIT EMERGENCY HIGH PHYS SEVERITY& THREAT [facility] 57374 [facility] 5 5 [facility] T VISIT HIGH/URGE NT SEVERITY [facility] 5 [facility] T EMERGENCY 07852 [facility] 5 5 CLARISSA - YORBA DEPARTMEN EMERGENCY PAT T VISIT PHYS HIGH/URGE NT SEVERITY EMERGENCY 16783 [facility] 5 5 [facility] SERV T VISIT FOUNDATIO MODERATE N SEVERITY EMERGENCY 46912 [facility] 5 5 [facility] T VISIT HIGH/URGE NT SEVERITY HOSPITAL [facility] - 5 5 [facility] T HOSPITAL [place] - 5 5 [facility] T OFFICE 41990 MAN[facility]EL [facility] 5 5 FAMILY T VISIT PHYSICIAN 25 S PLLC MINUTES HOS[facility]ITAL [facility] 5 [facility] T EMERGENCY 05968 [facility] 5 [facility] T VISIT MODERATE SEVERITY EMERGENCY 41850 [facility] 5 5 CLARISSA DEPARTMEN EMERGENCY T VISIT PHYS HIGH/URGE NT SEVERITY OFFICE 44293 MANUEL AYALA OUTPATIEN 5 5 FAMILY T VISIT PHYSICIAN 15 S PLLC MINUTES HOSPITAL [facility] EM[facility]ENC[facility] 46539 [facility] DEPT 5 5 CLARISSA COLLINS VISIT EMERGENCY HIGH PHYS SEVERITY& THREAT FUNCJ OFFICE 00620 MANUEL AYALA OUTPATIEN 5 5 FAMILY T VISIT PHYSICIAN 15 S PLLC MINUTES EMERGENCY 76691 [facility] 5 5 CLARISSA [facility] DEPARTMEN EMERGENCY T VISIT PHYS HIGH/URGE NT SEVERITY [facility] 5 [facility] T EMERGENCY 08422 [place] 5 5 [facility] HOSPITAL T VISIT MODERATE SEVERITY OFFICE 82947 MANUEL YRIS AYALA OUTPATIEN 5 5 FAMILY T VISIT PHYSICIAN 15 S PLLC MINUTES [facility]OS[facility] T EMERGENCY 57941 [facility] II DEPT 5 5 CLARISSA THO VISIT EMERGENCY HIGH PHYS SEVERITY& THREAT FUNCJ OFFICE 91337 KMSF JOSE ANTONIO MORAN OUTPATIEN 4 4 NURSE T NEW 45 PRACTITIO MINUTES [facility] OFFICE 13161 MANUEL AYALA OUTPATIEN 4 4 FAMILY T VISIT PHYSICIAN 15 S PLLC MINUTES OFFICE 06011 MANUEL AYALA OUTPATIEN 4 4 FAMILY T VISIT PHYSICIAN 25 S PLLC MINUTES EMERGENCY 88172 [facility] MATIAS DEPT 4 4 CLARISSA MUH VISIT EMERGENCY HIGH PHYSI SEVERITY& THREAT FUN HOSPITAL [facility] OFF[facility] 22153 [facility] OUTPATIEN 4 4 PHYSICIAN LES T VISIT PRACTICE 15 L MINUTES OFFICE 26471 [facility] OUTPATIEN 4 4 MEDICAL BELLA T VISIT SERV 25 FOUNDATIO MINUTES [facility] UNIVERSIT - 4 4 [facility] OFF[facility] 81590 DILEEP [facility] CONSULTAT 4 4 PHYSICIAN LES ION PRACTICE NEW/ESTAB L PATIENT 40 MIN OFFICE 04329 MANUEL AYALA [facility] 4 4 FAMILY T VISIT PHYSICIAN 15 S PLLC MINUTES
--- OUTSIDE RECORDS SUMMARY | 2017-06-14 14:18 | External Medical Summary Rpt ---
Author Author , UNIQUE CALHOUN Address Unknown Phone [email or web address] Care Team Providers Care Accounts Payable Processor Name Role Phone SIMONE CADET, SIMONE CHICHI Unavailable Unavailable ARNOLD, ARNOLD Unavailable Unavailable ARNOLD LAST, ARNOLD Unavailable Unavailable LAST EDUARDO LES, EDUARDO Unavailable Unavailable LES LAYTON, LAYTON Unavailable Unavailable AVALLONE, AVALLONE Unavailable Unavailable BEINEKE, BEINEKE Unavailable Unavailable PULIDO, PULIDO Unavailable Unavailable [facility] Unavailable Unavailable [facility], [facility] Unavailable Unavailable PRACTICE L, [place] [facility], [facility] Unavailable Unavailable [facility] [...] Unavailable [facility] Unavailable Unavailable PHYSICIAN PRA, [facility]IC[facility], Unavailable [...] Unavailable Unavailable DAMIAN, DAMIAN Unavailable Unavailable DAMIAN LASHWAN, DAMIAN LASHAWN Unavailable Unavailable [facility] Unavailable Unavailable SERVICES O, [facility] BEET FLUMER, BEET FLUMER Unavailable Unavailable SHAY III, SHAY Unavailable Unavailable III SHAY III MARY KATE, Unavailable Unavailable SHAY III MARY KATE [facility] Unavailable [facility] PS, [facility] MATTHEW, MATTHEW Unavailable Unavailable [facility] N[facility] Unavailable Unavailable PRACTITIONER GR, [facility] NURSE PRACTITIONER GR GOOD JERRY, Unavailable Unavailable GOOD JERRY BRANDAN PET, BRANDAN PET Unavailable Unavailable BENSON, BENSON Unavailable Unavailable [facility] Un[facility], [facility], Unavailable Unavailable [facility] JESSICA, JESSICA Unavailable Unavailable [place] [...] CONSULTING SRV, LINDA GALLO MD CONSULTING SRV [facility] Unavailable Unavailable EMS, [facility] Unavailable Unavailable EMS, [facility] Unavailable Unavailable PHYSICIANS PLLC, [facility] PHYSICIANS [facility], Unavailable Unavailable PLLC, [facility], [facility], Unavailable Unavailable [...] [facility] Unavailable Unavailable PHYSICIAN SERVI, [facility] WEBBER, WEBBER Unavailable Unavailable WEBBER RAY, WEBBER Unavailable Unavailable RAY SWINEY PAT, SWINEY Unavailable Unavailable PAT FLORENCIO TER, FLORENCIO TER Unavailable Unavailable [facility] Unavailable Unavailable HOSPITALS, [facility], Unavailable Unavailable [facility] Unavailable [facility] BRENNAN MARY KATE, BRENNAN Unavailable Unavailable MARY KATE JIM REGINALD, JIM Unavailable Unavailable REGINALD ALANIS, ALANIS Unavailable Unavailable [facility] Unavailable Unavailable DEPT RESHMA, [facility] Unavailable Un[facility] NICOLAS VALENZUELA Unavailable Unavailable INDUINDU GIMENEZ Unavailable Unavailable ZAGUROVSKAYA, Unavailable Unavailable ZAGUROVSKAYA OLGA, OLGA Unavailable Unavailable Purpose Continuity of Care Document - 06-16-2014 through 2016 Problems Code Diagnosis DOS Provider Status D539 NUTRITIONAL 05-08-2017 [facility] D696 THROMBOCYTO 05-08-2017 [facility] PEN[facility] UNSPECIFIED [facility] R109 UNSPECIFIED 05-08-2017 [place] [facility]BDOM[facility] PAIN [facility] R140 ABDOMINAL 05-08-2017 [place] [facility] GASEOUS [facility] K7581 NONALCOHOLI [...] O FAILURE WITHOUT COMA R51 HEADACHE 02-14-2017 [facility] Z794 SENIOR LIVING 02-14-2017 [place] CURRENT USE [facility] Z7984 SENIOR LIVING 02-14-2017 [place] USE OF ORAL [facility] HYPOGLYCEMI C DRUGS Z9119 PATIENTS 02-14-2017 [place] NONCOMPLIAN [facility] CE W/OTH HOSPITAL MED TX & REGIMEN D649 ANEMIA 01-31-2017 [place] [facility] UNSPECIFIED SERV [facility] K922 GASTROINTES 01-30-2017 [place] [facility] TINAL [facility] HEMORRHAGE [facility] UNSPECIFIED E1165 TYPE 2 01-29-2017 [facility]ES [facility] MELLITUS PHYSICIANS WITH PLLC HYPERGLYCEM IA R36068 PAIN IN 01-29-2017 [facility] RIGHT FOOT [facility]ILY PHYSIC[facility] PLLC Y35336 PAIN IN 01-29-2017 [facility] LEFT FOOT [facility]ILY PHYSIC[facility]ANS PLLC R600 LOCALIZED 01-26-2017 [facility] EDEMA N EMERGENCY PHYS R739 HYPERGLYCEM 01-26-2017 [facility] IA N EMERGENCY UNSPECIFIED PHYS D62 ACUTE 01-15-2017 [place] [facility] POSTHEMORRH SERVICES AGIC ANEMIA K209 ESOPHAGITIS [...] AWAITING 01-12-2017 [facility] STATUS T21585 EFFUSION 12-27-2016 [facility] RIGHT ANKLE N EMERGENCY PHYS O99268 EFFUSION 12-27-2016 [facility] LEFT ANKLE N EMERGENCY PHYS N390 URINARY 12-20-2016 [facility] TRACT N EMERGENCY INFECTION PHYS SITE NOT SPECIFIED R0609 OTHER FORMS 12-20-2016 [facility] [place] OF DYSPNEA RADIOLOGY R110 NAUSEA 12-20-2016 [facility] N EMERGENCY PHYS R079 CHEST PAIN 12-16-2016 [place] [facility] U[facility]PEC[facility] R1084 GENERALIZED 12-16-2016 [place] [facility] ABDOMIN[facility] PAIN [facility] R9431 ABNORMAL 12-16-2016 [place] [facility] ELECTROCARD SERV IOGRAM [facility] I8501 ESOPHAGEAL 11-22-2016 [place] [facility] VARICES [facility] WITH [facility] BLEEDING R1310 DYSPHAGIA 11-22-2016 [place] [facility] UNSPECIFIED SERV [facility] Z0189 ENCOUNTER 11-22-2016 [place] [facility] OTHER SERV SPECIFIED [facility] SPECIAL EXAMINATION S K228 OTHER 11-21-2016 [place] [facility] SPECIFIED SERV DISEASES OF FOUNDATION ESOPHAGUS R490 DYSPHONIA 11-21-2016 [facility] M92020A OTH FORGEN 11-20-2016 [place] [facility] OBJ RESP [...] FINDING OF LUNG FIELD Z4682 ENCOUNTER 11-17-2016 [place] [facility] & SERV ADJUST [facility] NON-VASCULA [...] J9811 ATELECTASIS 11-13-2016 [facility] J2558YL OTHER 11-13-2016 [place] [facility] POSTPROCEDU SERV RAL [...] PRACTITIONE UNSPECIFIED R GR J849 INTERSTITIA 11-11-2016 [place] [facility] L PULMONARY SERV DISEASE FOUNDATION UNSPECIFIED J984 OTHER 11-11-2016 [place] [facility] DISORDERS SERV OF LUNG FOUNDATION Z452 ENCOUNTER 11-09-2016 [place] [facility] ADJUSTMENT& SERV MGMT [facility] VASCULAR ACCESS DEVICE E875 HYPERKALEMI 11-08-2016 S NURSE Javy Whitney GR I459 CONDUCTION 11-08-2016 [place] [facility] DISORDER SERV UNSPECIFIED FOUNDATION K920 HEMATEMESIS 11-08-2016 AC LOPEZ, [facility] K8020 CALCULUS GB 11-07-2016 [place] [facility] W/O SERV CHOLECYSTIT FOUND[facility] IS W/O OBSTRUCTION R188 OTHER 11-07-2016 [place] [facility] ASCITES SERV [facility] Z8719 PERSONAL 11-07-2016 [place] [facility] HISTORY SERV OTHER FOUNDATION DISEASES DIGESTIVE SYSTEM R0602 SHORTNESS 11-06-2016 [facility] ASS R531 WEAKNESS 11-06-2016 AC LOPEZ, [facility] M542 CERVICALGIA 10-21-2016 [place] [facility] M6281 MUSCLE 10-21-2016 [facility] WEAKNESS [facility] EMS R1030 LOWER 10-21-2016 [place] [facility] ABDOMINAL SERV PAIN [facility]OUND[facility] UNSPECIFIED R05 COUGH 10-09-2016 [facility] J189 PNEUMONIA 09-22-2016 [place] UNSPECIFIED MEDICAL ORGANISM IMAGING ASS Z09 ENC F/U 09-22-2016 [place] EXAM AFTR MEDICAL CMPL TX OTH IMAGING ASS THAN MALIG NEOPLSM R509 FEVER 09-19-2016 [place] UNSPECIFIED [facility] IMAGING ASS H1133 CONJUNCTIVA 07-28-2016 [facility] HEMORRHAGE PHYS BILATERAL R030 ELEVATED 07-28-2016 [facility] BLOOD-PRESS N EMERGENCY URE READING PHYS WITHOUT DX HTN R0789 OTHER CHEST 07-28-2016 [facility] N EMERG[facility]Y PHYS T709ARJ OTHER 07-28-2016 [facility] [place] SPECIFIED RADIOLOGY INJURIES THORAX INITIAL ENC H1032 UNSPECIFIED 07-24-2016 [facility] CONJUNCTIVI PHYSICIANS TIS LEFT [facility] EYE H1132 CONJUNCTIVA 07-22-2016 [facility] L N EMERGENCY HEMORRHAGE PHYS LEFT EYE O976BWV CONTUSION 07-22-2016 [facility] OF N EMERGENCY ABDOMINAL PHYS WALL INITIAL ENCOUNTER E8342 HYPOMAGNESE 07-01-2016 [facility] TONI N EMERGENCY PHYS G0430 ACUTE 07-01-2016 [facility] NECROTIZING N EMERGENCY PHYS HEMORRHAGIC ENCEPHALOPA THY UNS R1110 VOMITING 06-28-2016 [place] [facility] U[facility]PECIFIED SERV [facility] G4710 HYPERSOMNIA 06-11-2016 LINDA GALLO MD UNSPECIFIED CONSULTING SRV D490 NEOPLASM OF 06-07-2016 [place] [facility] UNS SERV BEHAVIOR FOUNDATION DIGESTIVE SYSTEM K766 PORTAL 06-07-2016 [place] [facility] HYPERTENSIO SERV N FOUNDATION R161 SPLENOMEGAL 06-07-2016 [place] [facility] Y NOT SERV ELSEWHERE [facility]OUNDATION CLASSIFIED G479 SLEEP 06-03-2016 [facility] R0683 SNORING 06-03-2016 [facility] R5383 OTHER 06-03-2016 [facility] R31884 PAIN IN 05-20-2016 [place] UNSPECIFIED FOOT & LIMB ANKLE CE R072 PRECORDIAL 05-16-2016 LINDA JOSHI MD CONSULTING SRV G4733 OBSTRUCTIVE 05-02-2016 [facility] SLEEP [facility]ILY [facility] PEDIATRIC PLL [id number] TOX EFF OTH 04-08-2016 [facility] GASES N EMERGENCY FUMES & PHYS VAPORS ACC INITIAL ENC M545 LOW BACK 03-04-2016 [facility] PAIN FAMILY PHYSICIANS PLL R112 NAUSEA WITH 03-04-2016 [facility] UNSPECIFIED R1033 PERIUMBILIC 02-28-2016 [facility] AL PAIN N EMERGENCY PHYS R5381 OTHER 01-29-2016 [facility] MALAISE N EMERGENCY PHYS R17 UNSPECIFIED 01-26-2016 [facility] H[facility]PI L0390 CELLULITIS 01-08-2016 [facility] UNSPECIFIED FAMILY PHYSICIANS PLLC M546 PAIN IN 11-10-2015 [facility] THORACIC N EMERGENCY SPINE PHYS U51936 MUSCLE 11-10-2015 [facility] SPASM OF N EMERGENCY BACK PHYS K6389 OTHER 09-05-2015 [facility] [place] SPECIFIED RADIOLOGY DISEASES OF INTESTINE B370 CANDIDAL 08-15-2015 [facility] STOMATITIS FAMILY PHYSICIANS PLL K222 ESOPHAGEAL 07-26-2015 [facility] OBSTRUCTION REGIONAL PHYSICIAN PRA K319 DISEASE OF 07-26-2015 [place] [facility] DUODENUM GROUP PS UNSPECIFIED K449 DIAPHRAGMAT 07-26-2015 [place] [facility] HERNIA ANESTHESIA W/O GROUP PS OBSTRUCTION OR GANGRENE 4660 ACUTE 06-07-2015 [facility] BRONCHITIS [facility] 60628 ABDOMINAL 06-07-2015 [facility] PAIN, FAMILY GENERALIZED PHYSICIANS PLLC 7242 LUMBAGO 06-01-2015 [facility] [place] [facility] 7862 COUGH 06-01-2015 [facility] [place] [facility] 30770 ABDOMINAL 06-01-2015 [facility] [place] PAIN RIGHT RADIOLOGY LOWER QUADRANT 75414 DIAB W/O 05-31-2015 [facility] COMP TYPE N EMERGENCY II/UNS NOT PHYS STATED UN[facility]L 4019 UNSPECIFIED 05-31-2015 [place] [facility] N 4549 ASYMPTOMATI 05-31-2015 [place] C [facility] 5715 CIRRHOSIS 05-31-2015 [facility] WITHOUT HOSPITAL MENTION OF ALCOHOL 07881 OSTEOARTHRO 05-31-2015 [place] S UNSPEC COMMUNITY WHETHER HOSPITAL GEN/LOC UNSPEC SITE 7213 LUMBOSACRAL 05-31-2015 [facility] N EMERGENCY SPONDYLOSIS PHYS WITHOUT MYELOPATHY 93227 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 [facility] 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 89466 OTHER 05-31-[address] [place] [address] [facility] V5867 LONG-TERM 05-31-2015 [place] [facility] V5869 LONG-TERM 05-31-2015 [place] (CURRENT) CRITICAL ACCESS HOSPITAL USE OF HOSPITAL OTHER MEDICATIONS 81311 NAUSEA WITH 05-26-[address] [place] [address] [facility] 09981 ABDOMINAL 05-26-2015 [facility] PA[facility] RIGHT N EMERGENCY UPPER PHYS QUADRANT 14556 ABDOMINAL 05-26-2015 [facility] PA[facility], LEFT N EMERGENCY LOWER PHYS QUADRANT 28873 ABDOMINAL 05-26-2015 [facility] PA[facility], N EMERGENCY EPIGASTRIC PHYS V145 PERSONAL 05-26-2015 [place] [facility]ISTORY OF COMMUNITY ALLERGY TO HOSPITAL NARCOTIC AGENT 33070 ABDOMINAL 05-04-2015 [facility] UNSPECIFIED SITE 5718 OTHER 04-12-2015 [place] [facility] C LIVER DISEASE 84170 UNSPEC 04-12-2015 [facility] INJURY LIVR N EMERGENCY W/O PHYS MENTION OPN WOUND IN CAV 36848 DIAB W/O 03-27-2015 [facility] MENTION FAMILY COMP TYPE PHYSICIANS II/UNS TYPE PLLC UNCNTRL 70947 DIVERTICULI 03-27-2015 [facility] TIS OF FAMILY COLON PHYSICIANS PLLC 5589 OTH&UNSPEC 03-20-2015 [facility] NONINFECTIO N PHYSICIAN US SERVI GASTROENTER ITIS&COLITI S 5723 PORTAL 03-16-2015 [facility] [place] HYPERTENSIO RADIOLOGY N 34004 ABDOMINAL 03-16-2015 [facility] PAIN, N EMERGENCY PERIUMBILIC PHYS V146 PERSONAL 03-16-2015 [place] [facility] ALLERGY TO [facility]OSPITAL ANALGESIC AGENT 5289 OTHER&UNSPE 02-14-2015 [facility] CIFIED N EMERGENCY DISEASES PHYS THE ORAL SOFT TISSUES 5290 GLOSSITIS 02-14-2015 [facility] N EMERGENCY PHYS 2382 NEOPLASM OF 01-24-2015 [facility] UNCERTAIN FAMILY BEHAVIOR OF PHYSICIANS SKIN PLLC 4871 INFLUENZA 10-31-2014 [facility] WITH OTHER N PHYSICIAN RESPIRATORY SERVI MANIFESTATI ONS 48370 FEVER 10-31-2014 [facility] UNSPECIFIED N PHYSICIAN SERVI 486 PNEUMONIA, 10-30-2014 [facility] ORGANISM N EMERGENCY UNSPECIFIED PHYS 42254 OBESITY, 08-24-2014 [facility] NURSE UNSPECIFIED PRACTITIONE R GR V069 NEED PROPH 07-28-2014 [facility] W/UNSPEC [facility] DEPT COMB RESHMA VACCINE 28316 DISORDER OF 07-05-2014 [facility] [place] BONE AND RADIOLOGY CARTILAGE UNSPECIFIED 7948 NONSPECIFIC 07-05-2014 [facility] [place] ABNORMAL RADIOLOGY RESULTS LIVR FUNCTION STUDY 22931 DYSFUNCTION 06-29-2014 [place] OF PHYSICIAN EUSTACHIAN PRACTICE L TUBE 86512 SUBJECTIVE 06-29-2014 [place] TINNITUS PHYSICIAN PRACTICE L 26368 SENSORINEUR 06-29-2014 [place] AL HEARING PHYSICIAN LOSS [...] OR 20 9- 1- 01 UC ve MT 76 20 20 [...] SE 44 7- 7- 26 UC ve MT 29 20 20 [...] Procedure DOS Code Location Performer Comment RADEX 45768 [place] ABDOMEN 1 7 MEDICAL SERV ANTEROPOS FOUNDATIO TERIOR N VIEW BLOOD 62843 [place] MATTHEW SMEAR 7 MEDICAL PERIPHERA SERV L INTERP FOUNDATIO PHYS N W/WRIT REPORT INITIAL 53095 [place] [address] [facility] CARE/DAY PHYSICIAN CIARAALAL 70 SERVI MINUTES THERAPEUT 56081 [place] [facility] IC 7 HEALTHCAR HEALTHCAR PROPHYLAC E E TIC/DX [facility] INJECTION SUBQ/IM BLOOD 39819 [facility] COUNT 7 [facility]ALTHCAR HEALTHCAR COMPLETE E E AUTOMATED [facility] [place] [address] [facility] LIPASE 7 HEALTHCAR HEALTHCAR E E [facility] COMPREHEN 18409 [facility] SIVE 7 HEALTHCAR HEALTHCAR METABOLIC E E PANEL [facility] URNLS DIP 72684 [facility] 7 HEALTHCAR HEALTHCAR STICK/TAB E E LET RGNT [facility] AUTO W/O MICROSCOP Y ONDANSETR Q0162 [facility] ON 1 MG 7 HEALTHCAR HEALTHCAR ORL NOT E E EXCEED 48 [facility] HR DOSE REG FOR DIAB A5513 [facility] ONLY MX 7 BRACE BRACE DNSITY PROSTH PROSTH INSRT INC INC CSTM MOLD CSTM EA DIAB ONLY A5500 [facility] FIT CSTM 7 BRACE BRACE PREP&SPL PROSTH PROSTH SHOE MX INC INC DNSITY INSRT OBSERVATI 31720 [facility] ON/INPATI [facility] [place] [address] [place] [address] [facility] DAY ABDOMEN & 7 RADIOLOGY III PELVIS W/O CONTRAST MATERIAL BLOOD 53672 DILEEP FALK COUNT 7 [facility] AUTOMATED COMPREHEN [address] H[facility] PANEL PROTHROMB 28215 DILEEP FALK IN TIME 7 [facility] [place] [address] DILEEP FALK AMMONIA [address] [place] [address] HOSPITAL PROTHROMB 77276 DILEEP SORTOON IN TIME 7 [facility] GLUC BLD 46777 DILEEP SORTOON GLUC MNTR 7 [facility] CLEARED FDA SPEC HOME USE OBSERVATI 81167 [facility] ON CARE 7 MEDICINE DISCHARGE SERVICES O MANAGEMEN T GLUC BLD 62672 DILEEP SORTOON GLUC MNTR 7 [facility] CLEARED FDA SPEC HOME USE COMPREHEN [address] [place] [address] [place] [address] DILEEP FALK AMMONIA [address] [place] [address] HOSPITAL PROTHROMB 12082 DILEEP FALK IN TIME 7 [facility] BLOOD 15758 DILEEP FALK COUNT [address] [place] [address] HOSPITAL AUTO&AUTO DIFRNTL WBC THROMBOPL 49571 DILEEP FALK ASTIN [address] [place] [address] PARTIAL PLASMA/WH OLE BLOOD URNLS DIP 09987 DILEEP FALK [address] [place] [address] [facility] HOSPITAL LET REAGENT AUTO MICROSCOP Y BLOOD 76652 DILEEP FALK COUNT [address] [place] [address] HOSPITAL AUTO&AUTO DIFRNTL WBC PROTHROMB 31847 DILEEP FALK IN TIME 7 [facility] [place] [address] DILEEP FALK LIPASE [address] [place] [address] [place] [address] DILEEP FALK AMMONIA [address] [place] [address] HOSPITAL COMPREHEN [address] HOSPITAL PANEL INITIAL 37897 [facility] OBSERVATI 7 MEDICINE ON SERVICES CARE/DAY O 70 MINUTES BLD BANK 59367 [facility] VALENZUELA PHYS SVCS 7 MEDICAL DIFFC SERV CROSS FOUNDATIO MATCH&/EV N AL REP ANES 21514 [place] UPPER GI 7 MEDICAL ENDOSCOPY SERVICES PROXIMAL TO DUODENUM ESOPHAGOG 79766 [place] SUZAN KEMPODUOD 7 MEDICAL ENOSCOPY SERV TRANSORAL FOUNDATIO N DIAGNOSTI C INITIAL 04826 [facility] 7 CLARISSA ADRIAN CARE/DAY PHYSICIAN DECALVO 70 SERVI MINUTES BLD BANK 61453 [place] NICOLAS PHYS SVCS 7 MEDICAL DIFFC SERV CROSS FOUNDATIO MATCH&/EV N AL REP BLOOD 68269 [facility] COUNT [address] [place] [address] AUTOMATED COMPREHEN 29278 [facility] [address] [place] [address] PANEL RADIOLOGI 69540 [facility] [place] OLGA C EXAM 7 RADIOLOGY CHEST 2 VIEWS FRONTAL&L ATERAL DUP-SCAN 04132 [place] ROBERTH ARTL TIMOTHY 7 MEDICAL ABDL/PEL/ SERV SCROT&/RP FOUNDATIO R ORGN N COM RADIOLOGI 16607 [place] MERHAR C EXAM 7 MEDICAL CHEST 2 SERV VIEWS FOUNDATIO FRONTAL&L N ATERAL ECG 94325 [place] NIESHA ROUTINE 7 MEDICAL ECG SERV W/LEAST FOUNDATIO 12 LDS N I&R ONLY DUP-SCAN 60173 [place] WEBBER ARTL TIMOTHY 7 MEDICAL ABDL/PEL/ SERV SCROT&/RP FOUNDATIO R ORGN N [facility] 77117 [place] DISCHARGE 7 MEDICAL DAY SERV MANAGEMEN FOUNDATIO T > 30 N MIN SBSQ 93899 [facility] 7 MEDICAL CARE/DAY SERV 35 FOUNDATIO MINUTES N SWALLOWIN 00199 [place] DL BYNUMCJ 7 MEDICAL W/CINERAD SERV IOGRAPY/V FOUNDATIO IDRADIOG N SBSQ 78682 [place] [address] MEDICAL CARE/DAY SERV 25 FOUNDATIO MINUTES N SBSQ 37501 [place] [address] MEDICAL CARE/DAY SERV 25 FOUNDATIO MINUTES N ECG 52038 [place] BENSON ROUTINE 7 MEDICAL ECG SERV W/LEAST FOUNDATIO 12 LDS N I&R ONLY RADIOLOGI 44750 [place] ROSMERYPAULINE C 7 MEDICAL AYA EXAMINATI SERV ON CHEST FOUNDATIO SINGLE N VIEW FRONTAL RADIOLOGI 39664 [place] ZEKE C 7 MEDICAL EXAMINATI SERV ON CHEST FOUNDATIO SINGLE N VIEW FRONTAL ECG 73936 [place] DAMIAN ROUTINE 7 MEDICAL ECG SERV W/LEAST FOUNDATIO 12 LDS N I&R ONLY RADIOLOGI 98311 [place] ALANIS C 7 MEDICAL EXAMINATI SERV ON CHEST FOUNDATIO SINGLE N VIEW FRONTAL CRITICAL 18733 [place] ALONDRA CARE 7 MEDICAL ILL/INJUR SERV ED FOUNDATIO PATIENT N INIT 30-74 MIN RADIOLOGI 60693 [place] TREVON C 7 MEDICAL EXAMINATI SERV ON CHEST FOUNDATIO SINGLE N VIEW FRONTAL CRITICAL 52038 [place] ALONDRA CARE 7 MEDICAL ILL/INJUR SERV ED FOUNDATIO PATIENT N INIT 30-74 MIN CRITICAL 42204 [place] ALONDRA CARE 7 MEDICAL ILL/INJUR SERV ED FOUNDATIO PATIENT N INIT 30-74 MIN COLONOSCO 70816 [place] ANNELIESE PY FLX DX 7 MEDICAL Y W/COLLJ SERV SPEC WHEN FOUNDATIO PFRMD N RADIOLOGI 41777 [place] ONEAL C 7 MEDICAL EXAMINATI SERV ON CHEST FOUNDATIO SINGLE N [place]IEW FRONTAL RADEX 68111 [place] DL ABDOMEN 1 7 MEDICAL SERV ANTEROPOS FOUNDATIO TERIOR N VIEW ESOPHAGOG 28001 [place] ANNELIESE ASTRODUOD 7 MEDICAL Y ENOSCOPY SERV TRANSORAL FOUNDATIO N DIAGNOSTI C RADEX 47589 [place] DL ABDOMEN 1 7 MEDICAL SERV ANTEROPOS FOUNDATIO TERIOR N VIEW RADIOLOGI 65771 [place] TREVON C 7 MEDICAL EXAMINATI SERV ON CHEST FOUNDATIO SINGLE N VIEW FRONTAL DUP-SCAN 22012 [place] JESSICA ARTL TIMOTHY 7 MEDICAL ABDL/PEL/ SERV SCROT&/RP FOUNDATIO R ORGN N COM SBSQ 74367 [facility] 7 NURSE CARE/DAY PRACTITIO 25 NER GR MINUTES CRITICAL 17824 [place] ALONDR[facility] CARE 7 MEDICAL ILL/INJUR SERV ED FOUNDATIO PATIENT N INIT 30-74 MIN CRITICAL 21286 [place] AL[facility] CARE 7 MEDICAL ILL/INJUR SERV ED FOUNDATIO PATIENT N INIT 30-74 MIN RADIOLOGI 92393 [place] INDU C 7 MEDICAL EXAMINATI SERV ON CHEST FOUNDATIO SINGLE N VIEW FRONTAL RADIOLOGI 83964 [place] ONEAL C 7 MEDICAL EXAMINATI SERV ON CHEST FOUNDATIO SINGLE N VIEW FRONTAL CRITICAL 48330 [place] ALONDRA CARE 7 MEDICAL ILL/INJUR SERV ED FOUNDATIO PATIENT N INIT 30-[address] [facility] 7 NURSE CARE/DAY PRACTITIO 35 NER GR MINUTES ECG 88629 [place] BENSON ROUTINE 7 MEDICAL ECG SERV W/LEAST FOUNDATIO 12 LDS N I&R ONLY RADIOLOGI 47280 [place] RONAN C 7 MEDICAL EXAMINATI SERV ON CHEST FOUNDATIO SINGLE N VIEW FRONTAL RADIOLOGI 70680 [place] RONAN C 7 MEDICAL EXAMINATI SERV ON CHEST FOUNDATIO SINGLE N VIEW FRONTAL RADEX 21552 [place] JESSICA ABDOMEN 1 7 MEDICAL SERV ANTEROPOS FOUNDATIO TERIOR N VIEW ECG 26414 [place] ROUTINE 7 MEDICAL ECG SERV W/LEAST FOUNDATIO 12 LDS N I&R ONLY RADIOLOGI 18227 [place] WYNNE C 7 MEDICAL MONA EXAMINATI SERV ON CHEST FOUNDATIO SINGLE N VIEW FRONTAL SERVICES 28845 [facility] 7 PHYSICIAN U BTW 10 S, PLLC PM&8 AM AT 24-HR FACI INITIAL 10043 [facility] 7 NURSE CONSULT PRACTITIO NEW/ESTAB NER GR PT 80 MIN AMB A0427 [facility] SERVICE 7 AMBULANCE AMBULANCE ALS SERVICE SERVICE EMERGENCY TRANSPORT LEVEL 1 BLD BANK 75359 [facility] 7 MEDICAL AUTHJ SERV DEVIJ FOUNDATIO STANDARD N REPRT GROUND A0425 [facility] 7 AMBULANCE AMBULANCE PER SERVICE SERVICE STATUTE MILE GROUND A0425 [facility] MILEAGE 7 AMBULANCE AMBULANCE PER SERVICE SERVICE STATUTE MILE AMB A0427 [facility] SERVICE 7 AMBULANCE AMBULANCE ALS SERVICE SERVICE EMERGENCY TRANSPORT LEVEL 1 CRITICAL 57128 [facility] CARE 7 PHYSICIAN U ILL/INJUR S, PLLC ED PATIENT INIT 30-74 MIN GROUND A0425 [facility] AM[facility]UL[facility] PER SERVICE SERVICE STATUTE MILE AMBULANCE A0429 [facility] 7 AMBULANCE AMBULANCE BLS SERVICE SERVICE EMERGENCY TRANSPORT SERVICES 07761 [facility] PROVIDED 7 PHYSICIAN U BTW 10 S, PLLC PM&8 AM AT 24-HR FACI RADIOLOGI 59750 [place] [facility] EXAM 7 MEDICAL CHEST 2 IMAGING VIEWS ASS FRONTAL&L ATERAL GROUND A0425 [facility] MILEAGE 7 [facility] STAT[facility] EMS MILE OBSERVATI 63170 [facility] MEDICINE A DISCHARGE SERVICES O MANAGEMEN T INITIAL 47750 [facility] MEDICINE A ON SERVICES CARE/DAY O 70 MINUTES RADIOLOGI 92202 [facility] [place] [facility] C EXAM 7 RADIOLOGY CHEST 2 VIEWS FRONTAL&L ATERAL RADIOLOGI 01789 [place] [facility] EXAM 7 MEDICAL CHEST 2 IMAGING VIEWS ASS FRONTAL&L ATERAL RADIOLOGI 76037 [place] C EXAM 7 MEDICAL CHEST 2 IMAGING VIEWS ASS FRONTAL&L ATERAL AMB A0427 [facility] SERVICE 7 AMBULANCE AMBULANCE ALS SERVICE SERVICE EMERGENCY TRANSPORT LEVEL 1 GROUND A0425 [facility] MILEAGE 7 AMBULANCE AMBULANCE PER SERVICE SERVICE STATUTE MILE RADEX 64809 [facility] [place] [facility] MARILIN RIBS 6 RADIOLOGY UNILATERA L 2 VIEWS PROTHROMB 19273 [facility] [facility] IN TIME 6 [facility] COMPREHEN 36498 [facility] [facility] SIVE 6 [facility] PANEL BLOOD 38730 [facility] [facility] COUNT 6 [facility] 55904 [facility] N VENOUS 6 [facility] VENIPUNCT URE RADEX 14156 [facility] [place] RIBS UNI 6 RADIOLOGY RHO W/POSTERO ANT CH MIN[place] [address] [place] [address] [facility] [place] ABDOMEN & 6 RADIOLOGY RHO PELVIS W/O CONTRAST MATERIAL RADEX 61300 [facility] RIBS 6 [place] UNILATERA EMERGENCY L 2 VIEWS PHYS RADIOLOGI 34647 [facility] C 6 [place] EXAMINATI EMERGENCY ON CHEST PHYS SINGLE VIEW FRONTAL ECG 98628 [facility] ARNOLD ROUTINE 6 CL[place] LAST ECG EMERGENCY W/LEAST PHYS 12 LDS I&R ONLY RADIOLOGI 14469 [facility] [place] C 6 RADIOLOGY RHO EXAMINATI ON CHEST SINGLE VIEW FRONTAL ECG 78015 [place] DAMIAN LASHAWN ROUTINE 6 MEDICAL ECG SERV W/LEAST FOUNDATIO 12 LDS N I&R ONLY RADIOLOGI 74532 [place] BRENNAN C EXAM 6 MEDICAL MARY KATE CHEST 2 SERV VIEWS FOUNDATIO FRONTAL&L N ATERAL HEMOGLOBI 82484 KMSF JIM N 6 NURSE REGINALD GREEN PRACTITIO DANE A1C NER GR POLYSOM 59988 LINDA GALLO GALLO LINDA 6/>YRS 6 MD SLEEP 4/> CONSULTIN ADDL G SRV SYBIL ATTND MRI 72058 [place] BURGOS JENNIFER ABDOMEN 6 MEDICAL W/O & SERV W/CONTRAS FOUNDATIO T N MATERIAL POLYSOM 25619 MACARIOON BOURBON 6/>YRS 6 [facility] SLEEP 4/> HOSPITAL HOSPITAL ADDL SYBIL ATTND BLOOD 71705 [facility] COUNT 6 [facility] AUTOMATED PROTHROMB 03405 MAC[facility]IOON MACARIOON IN TIME 6 [facility] COMPREHEN 74812 DILEEP FALK SIVE 6 [facility] PANEL COLLECTIO 16233 BOFABBY SORTOON N VENOUS 6 [facility] VENIPUNCT URE ECHO 76284 LINDA GALLO GALLO LINDA TTHRC R-T 6 2D CONSULTIN W/WOM-MOD G SRV E COMPL SPEC&COLR D COMPREHEN 33221 PATH PATH SIVE 6 GROUP [facility] PANEL COLLECTIO 43352 MANUEL GREEN JAMIE N VENOUS 6 FAMILY BLOOD PHYSICIAN VENIPUNCT S PLLC URE INITIAL 72542 [facility] OBSERVATI 6 CLARISSA ISIDRA ON PHYSICIAN CARE/DAY SERVI 30 MINUTES RADIOLOGI 78193 [facility] [place] SHAY C 6 RADIOLOGY III MARY KATE EXAMINATI ON CHEST SINGLE VIEW FRONTAL RADIOLOGI 68841 [facility] SWINEY C 6 CLARISSA PAT EXAMINATI EMERGENCY ON CHEST PHYS SINGLE VIEW FRONTAL ECG 56252 [facility] SWINEY ROUTINE 6 CLARISSA PAT ECG EMERGENCY W/LEAST PHYS 12 LDS I&R ONLY RADIOLOGI 57550 [facility] [place] SCALF MARILIN C EXAM 6 RADIOLOGY CHEST 2 VIEWS FRONTAL&[place] [address] [facility] HAPTOGLOB 6 Y Y IN [facility] QUANTITAT NAIF LACTATE 07243 [facility] DEHYDROGE 6 Y Y NASE LDH [facility] [place] [address] [facility] GAMMAGLOB 6 Y Y ULIN IGA [facility] IGD IGG IGM EACH BLOOD 14804 [facility] COUNT 6 Y Y RETICULOC [facility] YTES AUTO 1/> [place] [address] [facility] FERRITIN 6 Y Y [facility] IMMUNOASS 25108 [facility] AY 6 Y Y ANALYTE [facility] QUAL/[place] M[place] [address] [facility] UNIVERS FREE 6 Y Y THYROXINE [facility] CERULOPLA 49646 [facility] SMIN 6 Y Y [facility] [place] [address] [facility] FOLIC 6 Y Y ACID RBC [facility] [place] [address] [facility] IRON 6 Y Y HOSPITAL [facility] COLLECTIO 03505 [facility] UNIVERS N VENOUS 6 Y Y BLOOD [facility] VENIPUNCT URE COLD 70040 [facility] AGGLUTINI 6 Y Y N [facility] HEPATITIS 26045 [facility] B SUR[facility] 6 Y [facility] HBSAB ANTINUCLE 44806 [facility] AR 6 Y Y [facility] S COLLINS HEPATITIS 08229 [facility] A 6 Y [facility] HAAB GENERAL 38319 [facility] 6 [place] [address] [place] SCALF MARILIN ABDOMEN & 5 RADIOLOGY PELVIS W/CONTRAS T MATERIAL ESOPHAGOG 75452 DAYNA TURNER ASTRODUOD [address] [place] [address] ENOSCOPY PHYSICIAN TRANSORAL PRA DIAGNOSTI C ANES 59963 [place] DEPA RAY UPPER GI 5 ANESTHESI ENDOSCOPY A GROUP PROXIMAL PS TO DUODENUM ONDANSETR Q0162 [facility] ON 1 MG 5 [facility] EXCEED 48 HR DOSE REG IAADIADOO [address] INFLUENZA [facility] HI OSM Q9963 [facility] CONTRST [address] [place] [address] HOSPITAL [phone] MG/ML IODINE CONC ML RADEX 99342 [facility] SPINE [address] [place] [address] AL 2/3 [place] [address] [facility] AMYLASE [address] [place] [address] [place] [address] [facility] LIPASE [address] [place] [address] GLUC BLD 33877 [facility] GLUC MNTR [address] [place] [address] HOSPITAL CLEARED FDA SPEC HOME USE COMPREHEN 40282 [facility] SIVE [address] [place] [address] METABOLIC [facility] PANEL BLOOD 70953 [facility] COUNT [address] [place] [address] HOSPITAL AUTO&[place] [address] [facility] ABDOMEN & 5 [facility] PELVIS [facility] W/O CONTRAST MATERIAL URNLS DIP [address] STICK/TAB HOSPITAL HOSPITAL LET REAGENT AUTO MICROSCOP Y RADIOLOGI 16514 [facility] C [address] [place] [address] [facility] ON CHEST SINGLE VIEW FRONTAL COLLECTIO 52181 DILEEP FALK N VENOUS 5 [facility] VENIPUNCT URE COLLECTIO 33203 [facility] FALK N VENOUS 5 [facility] VENIPUNCT URE INJECTION J1885 [facility]NN GALO[address] [facility] [place] INE PER 15 MG URNLS DIP [address] [place] [address] [facility] HOSPITAL LET REAGENT AUTO MICROSCOP Y BLOOD 89369 [facility] F[facility] COUNT 5 [facility]PITAL AUTO&AUTO DIFRNTL WBC COMPREHEN 80999 [facility] F[facility] SIVE [address] [place] [address] [place] [address] [facility] LIPASE [address] [place] [address] [place] [address] [facility] LIPASE 5 Y Y HOSPITAL HOSPITAL INJECTION J2405 [facility] 5 Y Y [facility] ON HCL PER 1 [place] [address] [facility] LACTATE 5 Y Y HOSPITAL HOSPITAL COMPREHEN 26982 [facility] 5 Y Y [facility] PANEL BLOOD 77776 [facility] COUNT 5 Y Y [facility] AUTO&[place] [address] [facility] ABDOMINAL 5 Y Y REAL HOSPITAL HOSPITAL TIME W/IMAGE DOCUMENTA TION THER 73767 UNIVERS UNIVERS PROPH/DX 5 Y Y NJX IV HOSPITAL HOSPITAL PUSH SINGLE/1S T SBST/[place] [address] [place] [place] ABDOMINAL 5 RADIOLOGY RHO [place] TIME W/[place] [address] [facility] F[facility] ABDOMINAL 5 [facility] TIME W/IMAGE DOCUMENTA TION INJECTION J[address] [facility] JEANNINE UP TO 4 MG INJECTION J2405 [address] ON HCL PER 1 MG HOSPITAL 56449 [facility] DISCHARGE 5 CLARISSA EDGAR IGN DAY PHYSICIAN MANAGEMEN SERVI T 30 MIN/< SBSQ 75309 [facility] 5 CLARISSA HUG CARE/DAY PHYSICIAN [address] SBSQ 18682 [facility] 5 CLARISSA HUG CARE/DAY PHYSICIAN 35 SERVI MINUTES INITIAL 07880 [facility] 5 CLARISSA A GOP CARE/DAY PHYSIC[place] [address] [place] [address] [place] [place] WEBBER ABDOMEN & 5 RADIOLOGY RAY PELVIS W/O CONTRAST MATERIAL BLOOD 44589 [address] PATH COUNT 5 GROUP GROUP COMPLETE [facility] AUTO&AUTO DIFRNTL WBC CYANOCOBA 76683 [address] PATH NAHOMI 5 GROUP GROUP VITAMIN LABS [facility] B-12 COMPREHEN 07718 [address] SIVE 5 GROUP GROUP METABOLIC LABS [facility] PANEL HEMOGLOBI 30764 PATH PATH N 5 GROUP GROUP GLYCOSYLA LABS [facility] DANE A1C COLLECTIO 83910 MANUEL GREEN JAMIE N VENOUS 5 [facility] PHYSICIAN VENIPUNCT S PLLC URE COLLECTIO 23559 DILEEP FALK N VENOUS 5 [facility] VENIPUNCT URE GLUC BLD 51454 DILEEP SORTOON GLUC MNTR [address] [place] [address] CLEARED FDA SPEC HOME USE COMPREHEN [address] [place] [address] DILEEP SORTOON LIPASE [address] [place] [address] PANEL GLUC BLD 34067 MACARIOJOCELYNN MACARIOON GLUC MNTR [address] [place] [address] CLEARED FDA SPEC HOME USE INITIAL 15795 [facility] OBSERVATI 5 CLARISSA HERNÁNDEZ IGN ON PHYSICIAN CARE/DAY SERVI 70 MINUTES BLOOD 35651 DILEEP GIPSON PET COUNT 5 [facility] AUTOMATED PRESSURIZ 46755 DILEEP FALK ED/NONPRE [address] [place] [address] HOSPITAL INHALATIO N TREATMENT NONINVASI 41956 [facility] VE [address] [place] [address] EAR/PULSE HOSPITAL HOSPITAL OXIMETRY SINGLE DETER URNLS DIP [address] STICK[facility] HOSPITAL LET REAGENT AUTO MICROSCOP Y RADIOLOGI 58501 [place] [place] C EXAM 5 RADIOLOGY RHO CHEST 2 VIEWS FRONTAL&L ATERAL GLUC BLD 70676 [facility] GLUC MNTR 5 [facility] CLEARED FDA SPEC HOME USE NATRIURET 82191 [facility] IC [address] [place] [address] PEPTIDE [facility] [place] [address] [facility] LIPASE [address] [place] [address] [place] [address] [facility] AMYLASE [address] [place] [address] HOSPITAL IAADIADOO [address] HOSPITAL GENERAL [address] HOSPITAL CULTURE 17733 [facility] BACTERIAL [address] [place] [address] BLOOD [facility] AEROBIC W/ID ISOLATES IAADIADOO [address] [facility] CC GROUP A HOSPITAL [id number] [facility] OBSERVATI [address] [place] [address] HOSPITAL HOSPITAL SERVICE PER HOUR HEMOGLOBI 67697 KMSF JOSE ANTONIO LUISA N 4 NURSE PETER VELA A1C NER GR IM ADM 01384 [facility] PR[facility] ID [facility] SUBQ/IM HLTH DEPT HLTH DEPT NJXS 1 RESHMA RESHMA VACCINE IM ADM 59149 [facility] PRQ ID 4 [facility] SUBQ/IM HLTH DEPT HLTH DEPT NJXS EA RESHMA RESHMA VACCINE HEPB 32302 [facility] VACCINE 4 [facility] ADULT 3 HLTH DEPT HLTH DEPT DOSE RESHMA RESHMA SCHEDULE FOR IM USE HEPA 97253 [facility] VACCINE 4 [facility] ADULT HLTH DEPT HLTH DEPT DOSE FOR RESHMA RESHMA INTRAMUSC ULAR USE RADEX 14558 [facility] [place] ABDOMEN 4 RADIOLOGY RHO COMPL W/DCBTS&/ [place] [address] [facility] [place] ABDOMINAL 4 RADIOLOGY RHO REAL TIME W/IMAGE DOCUMENTA TION DXA BONE 18423 [facility] [place] DENSITY 4 RADIOLOGY RHO STUDY 1/> SITES AXIAL SKEL COMPRE 23943 [place] [facility] SET AUDIOMETR 4 PHYSICIAN Y PRACTICE THRESHOLD L EVAL SP RECOGNIJ TYMPANOME 86126 [place] [facility] SET TRY 4 PHYSICIAN PRACTICE L HEPATITIS 51044 [facility] 4 Y Y [facility]9819 [facility] HAAB PROTHROMB 41904 [facility] IN TIME Y Y HOSPITAL HOSPITAL Encounters Encounter Start End Date Code Location Performer Type Date EMERGENCY 71175 [facility] DEPT 7 7 CLARISSA VISIT EMERGENCY HIGH PHYS SEVERITY& THREAT FUN EMERGENCY 73180 [facility] 7 7 CLARISSA DEPARTMEN EMERGENCY T VISIT PHYS HIGH/URGE NT SEVERITY EMERGENCY 12285 [place] [facility] 7 7 MEDICAL VISIT SERV HIGH FOUNDATIO SEVERITY& N THREAT FUN EMERGENCY 63313 7 7 [facility]ALTH[facility] DEPARTMEN E T VISIT HOSPITALS HIGH/URGE NT SEVERITY HOSPITAL - 7 7 [facility] OUTPATIEN E T HOSPITALS EMERGENCY 38925 [facility] DE[facility] 7 7 CLARISSA VISIT EMERGENCY HIGH PHYS SEVERITY& THREAT FUN HOSPITAL [facility] 7 [facility] [place] [facility] 7 7 [facility] T EMERGENCY 46692 [place] DEPT 7 7 COMMUNITY VISIT HOSPITAL HIGH SEVERITY& THREAT FUN EMERGENCY 18166 [facility] 7 7 MEDICAL VISIT SERV HIGH FOUNDATIO SEVERITY& N THREAT FUNCJ OFFICE 63782 [facility] OUTPATIEN 7 7 FAMILY T VISIT PHYSICIAN 15 S PLLC MINUTES EMERGENCY 59435 [facility] 7 7 CLARISSA DEPARTMEN EMERGENCY T VISIT PHYS HIGH/URGE NT SEVERITY [facility]OSPITAL [facility] - 7 7 [facility] INPATIENT E HOSPITALS EMERGENCY 00824 [facility] DE[facility] 7 7 MEDICAL VISIT SERV HIGH FOUNDATIO SEVERITY& N THREAT FUN [facility] 7 [facility] T EMERGENCY 41710 [facility] 7 7 CLARISSA DEPARTMEN EMERGENCY T VISIT PHYS HIGH/URGE NT SEVERITY EMERGENCY 35553 [facility] 7 7 CLARISSA VISIT EMERGENCY HIGH PHYS SEVERITY& THREAT FUNJ EMERGENCY 75436 [facility] 7 7 PHYSICIAN U VISIT S, PLLC HIGH SEVERITY& THREAT FUNCJ OFFICE [address] [facility] 7 7 MEDICAL ION SERV NEW/ESTAB FOUNDATIO PATIENT N 80 MIN EMERGENCY 46678 [facility] 7 7 MEDICAL DEPARTMEN SERV T VISIT FOUNDATIO MODERATE N SEVERITY EMERGENCY 47639 [facility] GEREMIAS DEPT 7 7 CLARISSA VISIT EMERGENCY HIGH PHYS SEVERITY& THREAT FUNJ EMERGENCY 82666 [facility] 6 6 CLARISSA DEPARTMEN EMERGENCY T VISIT PHYS HIGH/URGE NT SEVERITY EMERGENCY 79534 [facility] 6 6 CLARISSA PAT DEPARTMEN EMERGENCY T VISIT PHYS HIGH/URGE NT SEVERITY [facility] T OFFICE 94055 [facility] 6 6 FAMILY T VISIT PHYSICIAN 15 S PLLC MINUTES EMERGENCY 42262 [facility] MATIAS DEPT 6 6 CLARISSA VISIT EMERGENCY HIGH PHYS SEVERITY& THREAT FUNJ EMERGENCY 93948 [facility] 6 6 CLARISSA LAST VISIT EMERGENCY HIGH PHYS SEVERITY& THREAT FUNCJ EMERGENCY [address] 6 6 MEDICAL DEPARTMEN SERV T VISIT FOUNDATIO LOW/MODER N SEVERITY OFFICE 00705 KMSAndria FERNANDEZ [facility] 6 6 NURSE REGINALD T VISIT PRACTITIO 25 NER GR MINUTES EMERGENCY 92598 [facility] 6 6 CLARISSA PAT DEPARTMEN EMERGENCY T VISIT PHYS HIGH/URGE NT SEVERITY [facility] 6 [facility] [place] 6 6 [facility] T OFFICE 64562 [facility] 6 6 FOOT & T NEW 30 ANKLE CE MINUTES OFFICE 78983 MANUEL ARNDT JAMIE [facility] 6 6 FAMILY T VISIT PHYSICIAN 15 S PLLC MINUTES EMERGENCY 93240 [facility] D[facility] INA 6 6 MEDICAL DEPARTMEN SERV T VISIT FOUNDATIO MODERATE N SEVERITY EMERGENCY 34404 [facility] DEPT 6 6 CLARISSA KATHY VISIT EMERGENCY HIGH PHYS SEVERITY& THREAT FUNCJ OFFICE 66752 MANUEL GREEN JAMIE OUTPATIEN 6 6 FAMILY T VISIT PHYSICIAN 25 S PLLC MINUTES EMERGENCY 87786 [facility] DEPT 6 6 CLARISSA PAT VISIT EMERGENCY HIGH PHYS SEVERITY& THREAT FUNCJ EMERGENCY 62255 [facility] DEPT 6 6 CLARISSA KATHY VISIT EMERGENCY HIGH PHYS SEVERITY& THREAT FUNCJ OFFICE 25036 [facility]ON[facility] 6 6 Y OF RTHY JERRY T VISIT [place] 15 HOSPI MINUTES OFFICE 68706 MANUEL ARNDT JAMIE OUTPATIEN 6 6 FAMILY T VISIT PHYSICIAN 15 S PLLC MINUTES EMERGENCY 12336 [facility] 6 6 CLARISSA PAT DEPARTMEN EMERGENCY T VISIT PHYS HIGH/URGE NT SEVERITY HOSPITAL [facility] - 6 6 [facility] T OFFICE 49656 MANUEL AYALA OUTPATIEN 5 5 FAMILY T VISIT PHYSICIAN 15 S PLLC MINUTES OFFICE 90182 MANUEL GREEN JAMIE OUTPATIEN 5 5 FAMILY T VISIT PHYSICIAN 25 S PLLC MINUTES OFFICE 79231 MANUEL RODRIGUEZF OUTPATIEN 5 5 FAMILY T VISIT PHYSICIAN 15 S PLLC MINUTES EMERGENCY 81228 [facility] 5 CLARISSA COLLINS VISIT EMERGENCY HIGH PHYS SEVERITY& THREAT [facility] 5 [facility] T EMERGENCY 68458 [facility] 5 5 [facility] T VISIT HIGH/URGE NT SEVERITY [facility] 5 5 [facility] T EMERGENCY 39109 [facility] 5 5 CLARISSA - YORBA DEPARTMEN EMERGENCY PAT T VISIT PHYS HIGH/URGE NT SEVERITY EMERGENCY 21764 [facility] 5 5 MEDICAL [facility] SERV T VISIT FOUNDATIO MODERATE N SEVERITY EMERGENCY 39310 [facility] 5 5 [facility] T VISIT HIGH/URGE NT SEVERITY HOSPITAL [facility] - 5 5 [facility] T [facility] [place] - 5 5 [facility] T OFFICE 22395 MAN[facility]EL [facility] 5 5 FAMILY T VISIT PHYSICIAN 25 S PLLC MINUTES [facility] 5 [facility] T EMERGENCY 94824 [facility] 5 5 [facility] T VISIT MODERATE SEVERITY EMERGENCY 50376 [facility] 5 5 CLARISSA DEPARTMEN EMERGENCY T VISIT PHYS HIGH/URGE NT SEVERITY OFFICE 13191 MANUEL AYALA OUTPATIEN 5 5 FAMILY T VISIT PHYSICIAN 15 S PLLC MINUTES [facility] INPATIENT HOSPITAL EMERGENCY 97641 [facility] DEPT 5 5 CLARISSA COLLINS VISIT EMERGENCY HIGH PHYS SEVERITY& THREAT FUNCJ OFFICE 30146 MANUEL AYALA OUTPATIEN 5 5 FAMILY T VISIT PHYSICIAN 15 S PLLC MINUTES EMERGENCY 68571 [facility] 5 5 CLARISSA [facility] DEPARTMEN EMERGENCY T VISIT PHYS HIGH/URGE NT SEVERITY [facility] 5 [facility] T EMERGENCY 79185 [place] 5 5 [facility] H[facility]PITAL T VISIT MODERATE SEVERITY OFFICE 43817 MANUEL YRIS AYALA OUTPATIEN 5 5 FAMILY T VISIT PHYSICIAN 15 S PLLC MINUTES [facility] 5 5 [facility] T EMERGENCY 82614 [facility] II DEPT 5 5 CLARISSA THO VISIT EMERGENCY HIGH PHYS SEVERITY& THREAT FUNCJ OFFICE 59083 [facility] JOSE ANTONIO [facility]ORAN OUTPATIEN 4 4 NURSE T NEW 45 PRACTITIO MINUTES BANNER OFFICE 33060 MANUEL AYALA OUTPATIEN 4 4 FAMILY T VISIT PHYSICIAN 15 S PLLC MINUTES OFFICE 20091 MANUEL AYALA OUTPATIEN 4 4 FAMILY T VISIT PHYSICIAN 25 S PLLC MINUTES EMERGENCY 11555 [facility] MATIAS DEPT 4 4 CLARISSA MUH VISIT EMERGENCY HIGH PHYSI SEVERITY& THREAT FUN [facility] 4 4 [facility] T OFFICE 72309 [facility] OUTPATIEN 4 4 PHYSICIAN LES T VISIT PRACTICE 15 L MINUTES OFFICE 30571 [facility] OUTPATIEN 4 4 MEDICAL BELLA T VISIT SERV 25 FOUNDATIO MINUTES [facility] - 4 [facility] 72481 DILEEP CLARK CONS[facility] 4 4 PHYSICIAN LES ION PRACTICE NEW/ESTAB L PATIENT 40 MIN OFFICE 29286 MANUEL AYALA [facility] 4 4 FAMILY T VISIT PHYSICIAN 15 S PLLC MINUTES
--- OUTSIDE RECORDS SUMMARY | 2017-06-14 14:20 | External Medical Summary Rpt ---
Author Author , UNIQUE CALHOUN Address Unknown Phone [email or web address] Immunization Name Date Rout CVX Reac Dose [...]
--- OUTSIDE RECORDS SUMMARY | 2017-06-14 14:20 | External Medical Summary Rpt ---
Author Author , UNIQUE CALHOUN Address Unknown Phone [email or web address] Immunization Name Date Rout CVX Reac Dose [...]
== END 2017-05-15 10:20 | disposition home or self-care (01) | DRG 442 ==
LOC: ER 05:49 → ICU 07:50 → ER 07:50 → ICU 12:12 → 2ND 12:12 → ICU 13:46 → 2ND 18:02
PROVIDERS: Emergency Medicine; Family Medicine
DX: K75.81 Nonalcoholic steatohepatitis (NASH) (principal); R18.8 Other ascites; K72.90 Hepatic failure, unspecified without coma; K74.60 Unspecified cirrhosis of liver; K71.10 Toxic liver disease with hepatic necrosis, without coma; D64.9 Anemia, unspecified
CPT/HCPCS: J0595

== ENCOUNTER 2017-06-28 02:11 | Emergency (ER) | payer MEDICAID ==
[~2017-06-28] VITALS: Ht 170.2 cm; Wt 110.7 kg
[~2017-06-28 02:11] MED LIST changes: +GABAPENTIN 600600 MG PO
[2017-06-28] MEDS ORDERED: NEXIUM20 MG PO (02:31)
[2017-06-28] MEDS ORDERED: VITAMIN D31000 IU PO (02:32)
--- OUTSIDE RECORDS SUMMARY | 2017-06-28 02:41 | External Medical Summary Rpt | CCD ---
Author Author JEFFY Address Unknown Phone Purpose Continuity of Care Document - 05-13-2017 through 2016
--- NOTE | 2017-06-28 02:44 | Emergency Room Report ---
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 N Clinical Suspician of Infection? N Mental Status: 1 - Regular (Normal Baseline) Sepsis Risk:Low Sepsis Risk Have you (or family members/close friends) recently traveled outside the [place]? N If Yes, where/when: Have you had exposure to infectious disease within the past month? N TB? Other? Specify: Source patient, RN notes reviewed, family, old records Exam Limitations no limitations Comment pt with known liver failure who has acute onset of rt upper abd pain rad to flank which he has had in past - no fever or rash and no vomiting - he reports compliance with his meds Cardiac Chest Pain Chest pain indicative of cardiac No Timing/Duration this evening Severity moderate ALLERGIES Coded Allergies: codeine (11/08/16) cyclobenzaprine (From FLEXERIL) (11/08/16) Home Medications Reported Medications TIZANIDINE HCL (Tizanidine Hcl 4 Mg Tablet) 2 MG PO 1900 Lactulose (Lactulose) 40 GM PO TID Furosemide (Furosemide) 20 MG PO DAILY PRN DIURETIC #30 TAB Rifaximin (Xifaxan) 550 MG PO BID Gabapentin (Gabapentin 600MG) 600 MG PO TID METFORMIN HCL (Metformin 1000MG) 1,000 MG PO BID INSULIN NPL/INSULIN LISPRO (Humalog Mix 75-25 Kwikpen) 30 UNITS SC BID #30 Carvedilol (Carvedilol 12.5MG) 12.5 MG PO BID #60 Spironolactone (Spironolactone) 50 MG PO DAILY PRN DIURETIC #30 Esomeprazole Magnesium (Nexium) 50 MG PO DAILY CHOLECALCIFEROL (VITAMIN D3) (Vitamin D) 1,000 IUNITS PO WEEKLY History Medical History General CAD? No Angina: No [place]: No Hypertension? Yes Hyperlipidemia? No CHF? No DVT? No PE? No COPD? No Asthma? No Anemia? No GERD? Yes Gastric ulcers? No GI Bleed? No Hernia? No Thyroid Problems? No Hypothyroidism? No CVA? No Seizures? No Diabetes? Yes Insulin Dependent: Yes Insulin Pump: No Home FSBS? Yes Renal Insuffiency? No End Stage Renal Disease? No UTI? No Stones? Yes BPH? Yes GB Disease: No Nephritic Syndrome? No Asplenia? No Hepatitis? No Sickle Cell Disease? No Arthritis? No Migraines? No Cataracts? No Glaucoma? No MRSA? No HIV? No TB? No Anxiety? Yes Depression? No Cancer? No More? Yes Additional hx: 1. NON ALCOHOLIC CIRRHOSIS OF LIVER 2. 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 Respiratory denies cough, denies shortness of breath, denies wheezing Cardiovascular denies chest pain, denies syncope Gastrointestinal see HPI, abdominal pain, denies constipation, denies vomiting Genitourinary denies: dysuria, frequency, hesitancy, hematuria. Musculoskeletal denies back pain, denies joint pain, denies joint swelling, denies neck pain Skin denies rash Psychiatric/Neurological denies headache Physical Exam Vital Signs Vital Signs Date Time Temp Pulse Resp B/P Pulse O2 O2 Flow FiO2 Ox Delivery Rate 06/28 0531 98.7 86 18 148/82 98 06/28 0358 85 20 123/64 97 06/28 0213 99.1 86 18 164/90 96 - WBC >12,000 or <4,000 or 10% bands? 2 or more SIRS Criteria Met? B/P:148/82 MAP:114 Creatinine >2.0? UA output<0.5ml/kg/hr for 2 hrs? Platelet count >100,000? Lactate >2.0mmol/1? INR >1.2 or PTT > than 60 sec? Evidence of Organ Dysfunction? Provider documented clinical suspician of infection? N Sepsis Criteria Count: 0 Sepsis Risk: Low Sepsis Risk General Appearance no apparent distress Eye Exam - bilateral eye PERRL, bilateral eye EOMI, bilateral eye icterus Ear, Nose, Throat normal ENT inspection Neck supple Respiratory Status No: respiratory distress. Lung Sounds bilateral: lungs clear. 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 No Results/Orders Laboratory Tests 06/28/17 0708: Ammonia 134 H 06/28/17 0315: Ammonia 235 H 06/28/17 0315: Sodium 140, Potassium 3.9, Chloride 106, Carbon Dioxide 26, BUN 17, Creatinine 1.6 H, Estimated Creat Clear 93, Estimated GFR (MDRD) 47, Glucose 252 H, Calcium 9.1, Total Bilirubin 5.2 H, AST 58 H, ALT 28, Alkaline Phosphatase 191 H, Total Protein 6.8, Albumin 2.8 L, Globulin 4.0 H, Albumin/Globulin Ratio 0.7 L, Lipase 303, WBC 4.2 L, RBC 3.07 L, Hgb 10.8 L, Hct 31.7 L, MCV 103.3 H, RDW 16.6, Plt Count 133 L, MPV 7.9, Gran % 60.1, Gran # 2.5, Lymphocytes % 24.8, Monocytes % 10.9 H, Eosinophils % 3.9, Basophils % 0.3, Lymphocytes # 1.0 , Monocytes # 0.5, Eosinophils # 0.2, Basophils # 0.0, PUBS MCHC 34.2, MCH 35.3 H 06/28/17 0255: Urine Color YELLOW, Urine Appearance CLEAR, Urine pH 6.0, Ur Specific [place] 1.015, Urine Protein NEGATIVE, Urine Ketones NEGATIVE, Urine Blood 1+ H, Urine Nitrate NEGATIVE, Urine Bilirubin NEGATIVE, Urine Urobilinogen 0.2, Ur Leukocyte Esterase NEGATIVE, Urine RBC 3-5, Urine WBC OCC, Urine Mucus TRACE, Urine Glucose 3+ H Current Medication Orders Sig/Jarett Start time Last Medication Dose Route Stop Time Status Admin Lactulose 60 GM ONCE ONE 06/28 400 DC 06/28 PO 06/28 401 0401 Lactulose 0 .STK-MED ONE 06/28 0357 DC .ROUTE Sodium Chloride 10 ML PRN PRN 06/28 230 AC IV 06/29 223 Orders Procedure Date/time Status DIET-NOTHING BY MOUTH 06/28 B Active AMMONIA 06/[address] ABD & PELVIS W/O CONTRAST 06/[address] SCAN REQ 06/28 223 Active CHEST-AP VIEW ONLY 06/28 223 Active IV SALINE LOCK 06/28 223 Active URINALYSIS/COMPLETE 06/28 223 Complete LIPASE 06/28 223 Complete COMPLETE METABOLIC PANEL 06/28 223 Complete CBC WITH AUTO DIFF 06/28 223 Complete AMMONIA 06/28 223 Complete XRAY/CT/US XRAY/CT/US 1 CT abdomen, pelvis CT interpretation by discussed w/radiologist Time results known: 0320 CT Results abnormal (gallstones) XRAY/CT/US 2 XRAY chest XR interpretation by reviewed by me Xray Results normal/NAD Departure Departure Time of Disposition 728 Disposition DC Home or Self Care(routine) Clinical Impression Primary Impression: Cholelithiasis Qualifiers: Cholelithiasis location: gallbladder Cholecystitis presence: without cholecystitis Biliary obstruction: without biliary obstruction Qualified Code: K80.20 - Calculus of gallbladder without cholecystitis without obstruction Secondary Impressions: Hepatic encephalopathy Liver failure Qualifiers: Liver failure chronicity: chronic Hepatic coma status: without hepatic coma Qualified Code: K72.10 - Chronic hepatic failure without coma Condition STABLE Referrals JOEY ARNDT (Family) Patient Instructions DI for Cirrhosis Additional Instructions call pcp and your liver dr for follow up Discharge Counseling Counseled pt/family regarding diagnosis, test results, medications/RX, follow up needs ED Critical Care Critical Care No at 0733
--- OUTSIDE RECORDS SUMMARY | 2017-06-28 02:50 | External Medical Summary Rpt | CCD ---
Author Author , UNIQUE Organization UNIQUE Address Unknown Phone Care Team Providers Care Holistic Pulser Name Role Phone SIMONE CHICHI, SIMONE CHICHI Unavailable Unavailable ARNOLD, ARNOLD Unavailable Unavailable ARNOLD LAST, ARNOLD Unavailable Unavailable LAST EDUARDO LES, EDUARDO Unavailable Unavailable LES LAYTON, LAYTON Unavailable Unavailable AVALLONE, AVALLONE Unavailable Unavailable BEINEKE, BEINEKE Unavailable Unavailable PULIDO, PULIDO Unavailable Unavailable [facility] Unavailable Unavailable [facility], [facility] Unavailable Unavailable PRACTICE L, [facility], [facility] Unavailable Unavailable [facility] Unavailable Unavailable SERVICE, [facility] MICHAEL EDGAR, MICHAEL Unavailable Unavailable [...] Unavailable [facility] Unavailable Unavailable PHYSICIAN PRA, [facility] [place] [facility], [...] GUNDUMALLA GUNDUMALLA GOP, Unavailable Unavailable [facility] MABRY, MABRY Unavailable Unavailable DIAZ ISIDRA, DIAZ Unavailable Unavailable ISIDRA ONEAL, ONEAL Unavailable Unavailable DAMIAN, DAMIAN Unavailable Unavailable DAMIAN LASHAWN, DAMIAN LASHAWN Un[facility] Un[facility] Un[facility] SERVICES O, [facility] CENTRAL OFFICE FRAME WIRER, CENTRAL OFFICE FRAME WIRER Unavailable Unavailable SHAY III, SHAY Unavailable Unavailable III SHAY III MARY KATE, Unavailable Unavailable SHAY III MARY KATE [facility] Un[facility] Unavailable GROUP PS, [facility] Un[facility] Unavailable [facility], [facility] MATTHEW, MATTHEW Unavailable Unavailable [facility] NURSE Unavailable Unavailable PRACTITIONER GR, [facility] NURSE PRACTITIONER GR GOOD JERRY, Unavailable Unavailable GOOD JERRY BRANDAN PET, BRANDAN PET Unavailable Unavailable BENSON, BENSON Unavailable Unavailable [facility], Unavailable [facility]available [facility] JESSICA, JESSICA Unavailable Unavailable [place] [...] CONSULTING SRV, LINDA GALLO MD CONSULTING SRV [facility] Unavailable Unavailable EMS, [facility] Unavailable Unavailable EMS, [facility] Unavailable [facility]available [facility], [facility], Unavailable Unavailable PLLC, [facility], Unavailable Unavailable [facility], Unavailable Unavailable [facility] RICCI DUNN, Unavailable Unavailable [...] [facility] Unavailable Unavailable [facility]IAN SERV[facility], [facility] WEBBER, WEBBER Unavailable Unavailable WEBBER RAY, WEBBER Unavailable Unavailable RAY SWINEY PAT, SWINEY Unavailable Unavailable PAT FLORENCIO TER, FLORENCIO TER Unavailable [facility]available [facility] Unavailable Unavailable HOSPITALS, [facility], Unavailable Unavailable [facility] Unavailable [facility] BRENNAN MARY KATE, BRENNAN Unavailable Unavailable MARY KATE JIM REGINALD, JIM Unavailable Unavailable REGINALD ALANIS, ALANIS Unavailable Unavailable [facility] Unavailable Unavailable DEPT RESHMA, [facility] Unavailable Unavailable DEPT RESHMA, [facility] NICLOAS VALENZUELA Unavailable Unavailable INDUBIPIN GIMENEZKLER Unavailable Unavailable ZAGUROVSKAYA, Unavailable Unavailable ZAGUROVSKAYA OLGA, OLGA Unavailable Unavailable Purpose Continuity of Care Document - 06-16-2014 through 2016 Problems Code Diagnosis DOS Provider Status I517 CARDIOMEGAL 05-13-2017 [facility] R0602 SHORTNESS 05-13-2017 [facility] R410 DISORIENTAT 05-13-2017 [facility] ION [facility] UNSPECIFIED IMAGING ASS R413 OTHER 05-13-2017 [facility] R4182 ALTERED 05-13-2017 [facility]US [facility] UNSPECIFIED D539 NUTRITIONAL 05-08-2017 [facility] D696 THROMBOCYTO 05-08-2017 [facility]EN[facility] UNSPECIFIED [facility] R109 UNSPECIFIED 05-08-2017 [facility]BDOM[facility] PAIN [facility] R140 ABDOMINAL 05-08-2017 [facility] DIST[facility]ION [facility] GASEOUS [facility] R079 CHEST PAIN 05-07-2017 [facility]PEC[facility]IED RADIOLOGY K7581 NONALCOHOLI 05-06-2017 [facility] C N [facility]ERGENCY [...] O FAILURE WITHOUT COMA R51 HEADACHE 02-14-2017 [facility] 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 [facility] 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 [facility] INSULIN [facility] Z7984 DETENTION 02-14-2017 [facility] USE OF ORAL [facility] HYPOGLYCEMI C DRUGS Z9119 PATIENTS 02-14-2017 [facility] NONCOMPLIAN [facility] CE W/OTH HOSPITAL MED TX & REGIMEN D649 ANEMIA 01-31-2017 [facility]NSPECIFIED SERV [facility] K922 GASTROINTES 01-30-2017 [facility] TINAL [facility] HEMORRHAGE [facility] UNSPECIFIED E1165 TYPE 2 01-29-2017 [facility]ANS WITH PLL[place] HY[place]YCEM [place] C10025 PAIN IN 01-29-2017 [facility] RIGHT FOOT [facility] K12625 PAIN IN 01-29-2017 [facility] LEFT [facility]OT [facility] R600 LOCALIZED 01-26-2017 [facility] EDEMA N EMERGENCY PHYS R739 HYPERGLYCEM 01-26-2017 [facility] IA N EMERGENCY UNSPECIFIED PHYS D62 ACUTE 01-15-2017 [facility] POSTHEMORRH SERVICES AGIC ANEMIA K209 ESOPHAGITIS [...] AWAITING 01-12-2017 [facility] STATUS U25840 EFFUSION 12-27-2016 [facility] RIGHT ANKLE N EMERGENCY PHYS M35253 EFFUSION 12-27-2016 [facility] LEFT ANKLE N EMERGENCY PHYS N390 URINARY 12-20-2016 [facility] TRACT N EMERGENCY INFECTION PHYS SITE NOT SPECIFIED R0609 OTHER FORMS 12-20-2016 [facility] [place] OF DYSPNEA RADIOLOGY R110 NAUSEA 12-20-2016 [facility] N EMERGENCY PHYS R1084 GENERALIZED 12-16-2016 [facility]OM[facility] [...] R490 DYSPHONIA 11-21-2016 [facility] [id number] OTH FORGEN 11-20-2016 [facility] OBJ RESP [...] I2119 ST 11-16-2016 [facility] E[facility] OH INVOLV [facility] OTH CORONARY ART INF WALL [...] J9811 ATELECTASIS 11-13-2016 [facility] U5727VF OTHER 11-13-2016 [facility] POSTPROCEDU SERV RAL SHOCK [facility] SUBSEQUENT ENCOUNTER R0989 OTH SPEC SX 11-12-2016 [facility] & SIGNS SERV INVLV THE [facility] CIRC & RESP SYS E806 OTHER 11-11-2016 [facility] DISORDERS SERV OF [facility] BILIRUBIN METABOLISM E872 ACIDOSIS 11-11-2016 [facility] E876 HYPOKALEMIA 11-11-2016 [facility] I4891 UNSPECIFIED 11-11-2016 [facility] ATRIAL [facility] FIBRILLATIO FOUNDATION N I959 HYPOTENSION 11-11-2016 S NURSE BREANNA UNSPECIFIED R GR J849 INTERSTITIA 11-11-2016 [facility] L PULMONARY SERV DISEASE [facility] UNSPECIFIED J984 OTHER 11-11-2016 [facility] OF LUNG [facility] Z452 ENCOUNTER 11-09-2016 [facility] ADJUSTMENT& SERV MGMT [facility] VASCULAR ACCESS DEVICE E875 HYPERKALEMI 11-08-2016 S NURSE Javy CARLOS R GR I459 CONDUCTION 11-08-2016 [facility] DISORDER [facility] UNSPECIFIED [facility] K920 HEMATEMESIS 11-08-2016 [place] LOPEZ, [facility] K8020 CALCULUS GB 11-07-2016 [facility] W/O SERV CHOLECYSTIT [facility] IS W/O OBSTRUCTION R188 OTHER 11-07-2016 [facility] ASCITES [facility] Z8719 PERSONAL 11-07-2016 [facility] HISTORY [facility] OTHER [facility] DISEASES DIGESTIVE SYSTEM R531 WEAKNESS 11-06-2016 AC LOPE[facility], [facility] M542 CERVICALGIA 10-21-2016 [facility] M6281 MUSCLE 10-21-2016 [facility] WEAKNESS [facility] R1030 LOWER 10-21-2016 [facility] ABDOMINAL SERV PAIN [facility] UNSPECIFIED R05 COUGH 10-09-2016 [facility] J189 PNEUMONIA 09-22-2016 [facility] UNSPECIFIED MEDICAL ORGANISM IMAGING ASS Z09 ENC F/U 09-22-2016 [facility] EXAM AFTR MEDICAL CMPL TX OTH IMAGING ASS THAN MALIG NEOPLSM R509 FEVER 09-19-2016 [facility] UNSPEC[facility] MEDICAL IMAGING ASS H1133 CONJUNCTIVA 07-28-2016 [facility] L N EMERGENCY HEMORRHAGE PHYS BILATERAL R030 ELEVATED 07-28-2016 [facility] BLOOD-PRESS N EMERGENCY URE READING PHYS WITHOUT DX HTN R0789 OTHER CHEST 07-28-2016 [facility] PAIN N EMERGENCY PHYS W671QXE OTHER 07-28-2016 [facility] SPECIFIED RADIOLOGY INJURIES THORAX INITIAL ENC H1032 UNSPECIFIED 07-24-2016 [facility] ACUTE FAMILY CONJUNCTIVI PHYSICIANS TIS LEFT [facility] EYE H1132 CONJUNCTIVA 07-22-2016 [facility] L N EMERGENCY HEMORRHAGE PHYS LEFT EYE Q747NPX CONTUSION 07-22-2016 [facility] OF N EMERGENCY ABDOMINAL PHYS WALL INITIAL ENCOUNTER E8342 HYPOMAGNESE 07-01-2016 [facility] TONI N EMERGENCY PHYS G0430 ACUTE 07-01-2016 [facility] NECROTIZING N EMERGENCY PHYS HEMORRHAGIC ENCEPHALOPA THY UNS R1110 VOMITING 06-28-2016 [facility] SERV [facility] G4710 HYPERSOMNIA 06-11-2016 LINDA GALLO MD UNSPECIFIED CONSULTING SRV D490 NEOPLASM OF 06-07-2016 [facility] UNS [facility] BEHAVIOR [facility] DIGESTIVE SYSTEM K766 PORTAL 06-07-2016 [facility] HYPERTENSIO SERV N [facility]OUNDATION R161 SPLENOMEGAL 06-07-2016 [facility] NOT SERV ELSEWHERE [facility]OUNDATION CLASSIFIED G479 SLEEP 06-03-2016 [facility] DISORDER [facility] R0683 SNORING 06-03-2016 [facility] R5383 OTHER 06-03-2016 [facility] N86435 PAIN IN 05-20-2016 [place] UNSPECIFIED FOOT & LIMB ANKLE CE R072 PRECORDIAL 05-16-2016 LINDA JOSHI MD CONSULTING SRV G4733 OBSTRUCTIVE 05-02-2016 [facility] SLEEP [facility]ILY [facility] [id number] TOX EFF OTH 04-08-2016 [facility] GASES N EMERGENCY FUMES & PHYS VAPORS ACC INITIAL ENC M545 LOW BACK 03-04-2016 [facility] PAIN [facility] R112 NAUSEA WITH 03-04-2016 [facility] UNSPECIFIED R1033 PERIUMBILIC 02-28-2016 [facility] AL PAIN N EMERGENCY PHYS R5381 OTHER 01-29-2016 [facility] MALAISE N EMERGENCY PHYS R17 UNSPECIFIED 01-26-2016 [facility] L0390 CELLULITIS 01-08-2016 [facility] UNSPECIFIED [facility]YSIC[facility]ANS PLL[facility] M546 PAIN IN 11-10-2015 [facility] THORACIC N EMERGENCY SPINE PHYS Q52599 MUSCLE 11-10-2015 [facility] SPASM OF N EMERGENCY BACK PHYS K6389 OTHER 09-05-2015 [facility] [place] SPECIFIED RADIOLOGY DISEASES OF INTESTINE B370 CANDIDAL 08-15-2015 [facility] STOMATITIS [facility] K222 ESOPHAGEAL 07-26-2015 [facility] OBSTRUCTION REGIONAL PHYSICIAN PRA K319 DISEASE OF 07-26-2015 [place] [facility] PS UNSPECIFIED K449 DIAPHRAGMAT 07-26-2015 [place] [facility] ANESTHESIA W/O GROUP PS OBSTRUCTION OR GANGRENE 4660 ACUTE 06-07-2015 [facility] BRONCHITIS [facility] 84168 ABDOMINAL 06-07-2015 [facility] PAIN, FAMILY GENERALIZED PHYSICIANS PLLC 7242 LUMBAGO 06-01-2015 [facility] 7862 COUGH 06-01-2015 [facility] 61948 ABDOMINAL 06-01-2015 [facility] [place] PAIN RIGHT RADIOLOGY LOWER QUADRANT 29362 DIAB W/O 05-31-2015 [facility] COMP TYPE N EMERGENCY II/UNS NOT PHYS STATED UNCNTRL 4019 UNSPECIFIED 05-31-2015 [facility] ESSENTIAL [facility] HYPERTENSIO HOSPITAL N 4549 ASYMPTOMATI 05-31-2015 [facility] C VARICOSE [facility] VEINS [facility] 5715 CIRRHOSIS 05-31-2015 [facility] OF LIVER [facility] WITHOUT HOSPITAL MENTION OF ALCOHOL 97645 OSTEOARTHRO 05-31-2015 [facility] S UNSPEC [facility] WHETHER HOSPITAL GEN/LOC UNSPEC SITE 7213 LUMBOSACRAL 05-31-2015 [facility] N EMERGENCY SPONDYLOSIS PHYS WITHOUT MYELOPATHY 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 [facility] 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 86098 OTHER 05-31-2015 [facility] ASCITES [facility] HOSPITAL V5867 LONG-TERM 05-31-2015 [facility] USE OF [facility] INSULIN HOSPITAL V5869 LONG-TERM 05-31-2015 [facility] (CURRENT) [facility] USE OF HOSPITAL OTHER MEDICATIONS 03066 NAUSEA WITH 05-26-2015 [facility] VOMITING [facility] 70493 ABDOMINAL 05-26-2015 [facility] PAIN RIGHT N EMERGENCY UPPER PHYS QUADRANT 81943 ABDOMINAL 05-26-2015 [facility] PAIN, LEFT N EMERGENCY LOWER PHYS QUADRANT 58218 ABDOMINAL 05-26-2015 [facility] PAIN, N EMERGENCY EPIGASTRIC PHYS V145 PERSONAL 05-26-2015 [facility] HISTORY OF COMMUNITY ALLERGY TO HOSPITAL NARCOTIC AGENT 34499 ABDOMINAL 05-04-2015 [facility] UNSPECIFIED SITE 5718 OTHER 04-12-2015 [facility] CHRONIC [facility] NON[facility]I HOSPITAL C LIVER DISEASE 36450 UNSPEC 04-12-2015 [facility] INJURY LIVR N EMERGENCY W/O PHYS MENTION OPN WOUND IN CAV 40385 DIAB W/O 03-27-2015 [facility] MENTION FAMILY COMP TYPE PHYSICIANS II/UNS TYPE PLLC UNCNTRL 21934 DIVERTICULI 03-27-2015 [facility] TIS OF FAMILY COLON PHYSICIANS PLLC 5589 OTH&UNSPEC 03-20-2015 [facility] NONINFECTIO N PHYSICIAN US SERVI GASTROENTER ITIS&COLITI S 5723 PORTAL 03-16-2015 [facility] [place] HYPERTENSIO RADIOLOGY N 71954 ABDOMINAL 03-16-2015 [facility] PAIN, N EMERGENCY PERIUMBILIC [...] OTHER N PHYSICIAN RESPIRATORY SERVI MANIFESTATI ONS 21105 FEVER 10-31-2014 [facility] UNSPECIFIED N PHYSICIAN SERVI 486 PNEUMONIA, 10-30-2014 [facility] ORGANISM N EMERGENCY UNSPECIFIED PHYS 25890 OBESITY, 08-24-2014 [facility] NURSE UNSPECIFIED PRACTITIONE R GR V069 NEED PROPH 07-28-2014 [facility] W/UNSPEC [facility] DEPT COMB RESHMA VACCINE 27239 DISORDER OF 07-05-2014 [facility] [place] BONE AND RADIOLOGY CARTILAGE UNSPECIFIED 7948 NONSPECIFIC 07-05-2014 [facility] [place] ABNORMAL RADIOLOGY RESULTS LIVR FUNCTION STUDY 75316 DYSFUNCTION 06-29-2014 [place] OF PHYSICIAN EUSTACHIAN PRACTICE L TUBE 79530 SUBJECTIVE 06-29-2014 [place] TINNITUS PHYSICIAN PRACTICE L 64815 SENSORINEUR 06-29-2014 [place] AL HEARING PHYSICIAN LOSS [...] ia de te s n re d FU 00 10 10 30 30 00 KE Ac RO 37 -0 -2 .0 00 NT ti SE 80 1- 0- 00 01 UC ve [place] 21 20 20 03 [place] DE 61 17 17 15 0 39 CV 40 S PH MG AR MA TA CY BL ET LL C, DB A CV S PH AR MA CY #3 01 6 HU 00 10 10 15 30 00 KE Ac MA 00 -0 -2 .0 00 NT ti LO 28 1- 0- 00 01 UC ve G 79 20 20 04 [place] OH 75 17 17 96 X 9 17 CV 75 S -2 PH 5 AR KW MA IK CY PE N LL C, DB A CV S PH AR MA CY #3 01 6 AP 00 10 10 15 30 00 KE Ac ID 08 -0 -2 .0 00 NT ti RA 82 1- 0- 00 01 UC ve 50 20 20 05 [place] SO 20 17 17 11 [address] S AR PH AR 10 MA 0 CY UN IT LL S/ C, ML DB A CV S PH AR MA CY #3 01 6 CA 76 09 10 60 30 00 KE Ac RV 38 -2 -2 .0 00 NT ti ED 50 8- 0- 00 01 UC ve IL 11 20 20 02 [place] OL 35 17 17 79 0 50 CV 25 S PH MG AR MA TA CY BL ET LL C, DB A CV S PH AR MA CY #3 01 6 BU 00 09 10 2. 30 00 KE Ac TO 37 -2 -2 50 00 NT ti RP 89 7- 0- 0 01 UC ve THOMPSON 63 20 20 06 [place] NO 94 17 17 29 L 3 84 CV 10 S PH MG AR /M MA L CY SP RA LL Y C, DB A CV S PH AR MA CY #3 01 6 ES 00 09 10 30 30 00 KE Ac OM 37 -2 -2 .0 00 NT ti EP 82 8- 0- 00 00 UC ve RA 35 20 20 98 [place] ZO 19 17 17 98 LE 3 26 CV S MA PH G AR DR MA CY 40 LL MG C, CA DB P A CV S PH AR MA CY #3 01 6 TI 00 09 10 20 7 00 KE Ac ZA 37 -1 -1 .0 00 NT ti NI 80 6- 3- 00 01 UC ve DI 72 20 20 05 [place] NE 41 17 17 10 9 53 CV HC S L PH 4 AR MG MA CY TA BL LL ET C, DB A CV S PH AR MA CY #3 01 6 GA 65 09 10 90 30 00 KE Ac BA 86 -1 -1 .0 00 NT ti PE 20 3- 3- 00 01 UC ve NT 52 20 20 05 [place] IN 30 17 17 11 5 09 CV 60 S 0 PH MG AR MA TA CY BL ET LL C, DB A CV S PH AR MA CY #3 01 6 BD 08 09 10 10 20 00 KE Ac 29 -1 -1 0. 00 NT ti UL 03 6- 3- 00 01 UC ve TR 20 20 20 0 04 [place] A- 10 17 17 14 FI 9 25 CV NE S PH PE AR N MA ND CY L 8M LL MX C, 31 G DB A CV S PH AR MA CY #3 01 6 ME 68 09 10 60 30 00 KE Ac TF 38 -1 -0 .0 00 NT ti OR 20 0- 6- 00 01 UC ve OH 76 20 20 05 [place] N 01 17 17 06 HC 0 10 CV L S 1, PH 00 AR 0 MA MG CY TA LL BL C, ET DB A CV S PH AR MA CY #3 01 6 HU 00 09 10 15 30 00 KE Ac MA 00 -0 -0 .0 00 NT ti LO 28 4- 6- 00 01 UC ve G 79 20 20 04 [place] OH 75 17 17 96 X 9 17 CV 75 S -2 PH 5 AR KW MA IK CY PE N LL C, DB A CV S PH AR MA CY #3 01 6 XI 65 09 10 60 30 00 KE Ac FA 64 -1 -0 .0 00 NT ti XA 90 0- 6- 00 01 UC ve N 30 20 20 05 [place] 55 30 17 17 09 0 2 21 CV MG S PH TA AR BL MA ET CY LL C, DB A CV S PH AR MA CY #3 01 6 69 09 10 4. 28 00 KE Ac T 45 -0 -0 00 00 NT ti D2 20 8- 6- 0 01 UC ve 15 20 20 05 [place] 1. 12 17 17 00 25 0 82 CV S MG PH AR (5 MA 0, CY 00 0 LL UN C, IT ) DB A CV S PH AR MA CY #3 01 6 RI 65 08 09 12 2 00 KE [...] MG AR MA TA CY BL ET CA 00 09 09 60 30 00 KE Ac RV 37 -0 -2 .0 00 NT ti ED 83 1- 9- 00 01 UC ve IL 63 20 20 02 [place] OL 40 17 17 79 5 50 CV 25 S PH MG AR MA TA CY BL ET LL C, DB A CV S PH AR MA CY #3 01 6 AM 68 09 09 30 30 00 KE Ac LO 18 -0 -2 .0 05 NT ti DI 00 1- 9- 00 26 UC ve PI 75 20 20 29 [place] NE 20 17 17 69 3 86 CL BE IN SY IC LA TE PH AR 10 MA CY MG TA B ES 00 09 09 30 30 00 [...] 80 2- 1- 00 01 UC ve OH 21 20 20 03 [place] DE 61 [...] JUANY CY #3 01 6 HU 00 08 09 15 30 00 KE Leroy HARRINGTON 00 -0 -0 .0 00 NT ti LO 28 9- 1- 00 01 UC ve G 79 20 20 04 [place] OH 75 17 17 96 X 9 17 CV 75 S -2 PH 5 AR KW MA IK CY PE N LL C, DB A CV S PH AR JUANY CY #3 01 6 LA 00 07 [...] MG 33 7 CA PS UL E AP 00 07 08 15 30 00 [...] 20 5- 4- 00 01 UC ve OH 76 20 20 02 [place] N 01 [...] 80 9- 8- 00 01 UC ve [place] 21 20 20 03 [place] DE 61 [...] 20 9- 1- 00 01 UC ve OH 76 20 20 02 [place] N 01 [...] ve G 79 20 20 97 [place] OH 75 17 17 10 X 9 96 CV 75 S -2 PH 5 AR KW MA IK CY PE N LL C, DB A CV S PH AR MA CY #3 01 6 FU 00 05 06 30 30 00 KE Ac RO 37 -2 -2 .0 00 NT ti SE 80 4- 3- 00 01 UC ve OH 21 20 20 03 [place] DE 61 [...] 20 3- 3- 00 01 UC ve OH 76 20 20 02 [place] N 01 17 17 43 HC 0 90 CV L S 1, PH 00 AR 0 MA MG CY TA LL BL C, ET DB A CV S PH AR MA CY #3 01 6 OH 57 05 06 30 30 00 KE [...] PH AR MA CY #3 01 6 OH 57 04 05 30 30 00 KE [...] 20 3- 2- 00 00 UC ve OH 76 20 20 99 [place] N 01 [...] ve G 79 20 20 97 [place] OH 75 17 17 10 X 9 96 [...] PH AR MA CY #3 01 6 OH 57 03 04 30 30 00 KE [...] AR 40 MA CY MG CA P ME 68 03 04 60 30 00 KE Ac TF 38 -1 -0 .0 00 NT ti OR 20 7- 7- 00 00 UC ve OH 76 20 20 99 [place] N 01 17 17 49 HC 0 47 CV L S 1, PH 00 AR 0 MA MG CY TA LL BL C, ET DB A CV S PH AR MA CY #3 01 6 FU 00 03 04 30 30 00 KE Ac RO 05 -1 -0 .0 05 NT ti SE 44 7- 7- 00 26 UC ve OH 29 20 20 25 [place] DE 93 [...] 80 1- 0- 00 00 UC ve OH 20 20 20 97 [place] DE 81 [...] 00 [place] RA 30 17 17 11 OH 5 65 CV DE S PH 10 AR MA MG CY TA LL BL C, ET DB A CV S PH AR MA CY #3 01 6 OH 57 02 02 30 30 00 KE [...] JUANY CY #3 01 6 FU 00 01 02 30 30 00 KE Ac RO 37 -1 -1 .0 00 NT ti SE 80 1- 0- 00 00 UC ve OH 20 20 20 97 [place] DE 81 17 17 66 0 62 CV 20 S PH MG AR MA TA CY BL ET LL C, DB A CV S PH AR MA CY #3 01 6 ME 68 01 02 60 30 00 KE Ac TF 38 -1 -1 .0 00 NT ti OR 20 0- 0- 00 00 UC ve OH 76 20 20 99 [place] N 01 [...] ve G 79 20 20 97 [place] OH 75 16 17 10 X 9 96 [...] Procedures Procedure DOS Code Location Performer Comment AMB A0427 [facility] SERVICE 7 AMBULANCE AMBULANCE ALS SERVICE SERVICE [place]SP[place] [address] ASHWINZach ASHOK HEAD/BRAI 7 MEDICAL N W/O IMAGING CONTRAST ASS MATERIAL RADIOLOGI 24062 [facility]UNIOR PULIDO C 7 MEDICAL EXAMINATI IMAGING ON CHEST ASS SINGLE VIEW FRONTAL ALS A0398 [facility] 7 AMBULANCE AMBULANCE DISPOSABL SERVICE SERVICE E SUPPLIES GROUND A0425 [facility] MILEAGE 7 AMBULANCE AMBULANCE PER SERVICE SERVICE STATUTE MILE RADEX 19025 [place] BURGOS ABDOMEN 1 7 MEDICAL SERV ANTEROPOS FOUNDATIO TERIOR N VIEW BLOOD 87655 [place] MATTHEW SMEAR 7 MEDICAL PERIPHERA SERV L INTERP FOUNDATIO PHYS N W/WRIT REPORT RADIOLOGI 87046 [facility] [place] MABRY C EXAM 7 RADIOLOGY CHEST 2 VIEWS FRONTAL&L ATERAL INITIAL 13188 [facility] 7 CLARISSA ADRIAN CARE/DAY PHYSICIAN DECALVO 70 SERVI MINUTES URNLS DIP 90821 [facility] 7 HEALTHCAR HEALTHCAR STICK/TAB E E LET RGNT [facility]ALS AUTO W/O MICROSCOP Y COMPREHEN 76653 [facility] SIVE 7 HEALTHCAR HEALTHCAR METABOLIC E E PANEL [facility] [place] [address] [facility] LIPASE 7 HEALTHCAR HEALTHCAR E E HOSPITALS HOSPITALS THERAPEUT 75980 [facility] IC 7 HEALTHCAR HEALTHCAR PROPHYLAC E E TIC/DX [facility] INJECTION SUBQ/IM ONDANSETR Q0162 [facility] ON 1 MG 7 HEALTHCAR HEALTHCAR ORL NOT E E EXCEED 48 HOSPITALS HOSPITALS HR DOSE REG BLOOD 47503 [facility] COUNT 7 HEALTHCAR HEALTHCAR COMPLETE E E AUTOMATED HOSPITALS HOSPITALS DIAB ONLY A5500 [facility] FIT CSTM 7 BRACE BRACE PREP&SPL PROSTH PROSTH SHOE MX INC INC DNSITY INSRT FOR DIAB A5513 [facility] ONLY MX 7 BRACE BRACE DNSITY PROSTH PROSTH INSRT INC INC CSTM MOLD CSTM EA OBSERVATI 89797 [facility] ON/INPATI 7 MEDICINE [facility] O [place] [address] [place] [address] [facility] A[facility] & 7 RADIOLOGY III PELVIS W/O CONTRAST MATERIAL BLOOD 43389 DILEEP S[facility]TO[facility] COUNT [address] [place] [address] HOSPITAL AUTOMATED COMPREHEN [address] HOSPITAL PANEL PROTHROMB 31600 DILEEP [facility]TO[facility] IN TIME 7 [facility] PROTHROMB 41890 DILEEP SORTO[facility] IN TIME 7 [facility] OBSERVATI 14450 [facility]ARE 7 MEDICINE [place]CHAR[place] [address] DILEEP SORTOON AMMONIA [address] [place] [address] GLUC BLD 51111 DILEEP GALOURBON GLUC MNTR [address] [place] [address] HOSPITAL CLEARED FDA SPEC HOME USE GLUC BLD 30753 IRAJURBON IRAJURBON GLUC MNTR [address] [place] [address] HOSPITAL CLEARED FDA SPEC HOME USE BLOOD 02816 MACARIOON MACARIOON COUNT [address] [place] [address] HOSPITAL AUTO&[place] [address] MAC[facility]IOON MACARIOON AMMONIA [address] [place] [address] COMPREHEN 29563 DI[address]EP [address] HOSPITAL PANEL PROTHROMB 17206 DILEEP SORTOON IN TIME 7 [facility] THROMBOPL 36651 DILEEP GALOANTWANON ASTIN [address] [place] [address] HOSPITAL PARTIAL PLASMA/[place] [address] DILEEP FALK LIPASE 7 [facility] PROTHROMB 90962 DILEEP FALK IN TIME 7 [facility] COMPREHEN 73553 DILEEP FALK SIVE [address] [place] [address] [place] [address] DILEEP FALK AMMONIA 7 [facility] INITIAL 25355 [facility] 7 MEDICINE ON SERVICES CARE/DAY O 70 MINUTES BLOOD 33739 DILEEP FALK COUNT [address] [place] [address] AUTO&AUTO DIFRNTL WBC URNLS DIP [address] DI[address]EP [address]ALK [address] [place] [address]/[facility] HOSPITAL LET REAGENT AUTO MICROSCOP Y BLD BANK 91960 [place] [facility] 7 MEDICAL DIFFC SERV CROSS FOUNDATIO MATCH&/EV N AL REP ESOPHAGOG 38003 [place] [facility] GRAY[facility] 7 MEDICAL ENOSCOPY SERV TRANSORAL FOUNDATIO N DIAGNOSTI C ANES 37023 [facility] 7 MEDICAL ENDOSCOPY SERVICES PROXIMAL TO DUODENUM BLD BANK 30718 [place] [facility] 7 MEDICAL DIFFC SERV CROSS FOUNDATIO MATCH&/EV N AL REP INITIAL 94348 [facility] 7 CLARISSA ADRIAN CARE/DAY PHYSICIAN ELADIO 70 SERVI MINUTES COMPREHEN 22135 DILEEP REMYE [address] [place] [address] HOSPITAL PANEL BLOOD 82871 DILEEP MARTEL [address] [place] [address] HOSPITAL AUTOMATED RADIOLOGI 73319 CN[place] OLGA C EXAM 7 RADIOLOGY CHEST 2 VIEWS FRONTAL&L ATERAL DUP-SCAN 58177 [place] ROBERTH ARTL TIMOTHY 7 MEDICAL ABDL/PEL/ SERV SCROT&/RP FOUNDATIO R ORGN N COM RADIOLOGI 99145 [place] ANNA C EXAM 7 MEDICAL CHEST 2 SERV VIEWS FOUNDATIO FRONTAL&L N ATERAL ECG 59646 [place] NIESHA ROUTINE 7 MEDICAL ECG SERV W/LEAST FOUNDATIO 12 LDS N I&R ONLY DUP-SCAN 60759 [place] LAWANDA ARTL TIMOTHY 7 MEDICAL ABDL/PEL/ SERV SCROT&/RP FOUNDATIO R ORGN N [facility] 89646 [place] [facility] DISCHARGE 7 MEDICAL DAY SERV MANAGEMEN FOUNDATIO T > 30 N MIN SBSQ 05215 [place] [facility] 7 MEDICAL CARE/DAY SERV 35 FOUNDATIO MINUTES N SWALLOWIN 87390 [place] DL G FUNCJ 7 MEDICAL W/CINERAD SERV IOGRAPY/V FOUNDATIO IDRADIOG N SBSQ 75227 [place] [facility] 7 MEDICAL CARE/DAY SERV 25 FOUNDATIO MINUTES N SBSQ 40239 [place] [address] MEDICAL CARE/DAY SERV 25 FOUNDATIO MINUTES N RADIOLOGI 64564 [place] LAYLA C 7 MEDICAL AYA EXAMINATI SERV ON CHEST FOUNDATIO SINGLE N VIEW FRONTAL ECG 38083 [place] BEN[place] ROUTINE 7 MEDICAL ECG SERV W/LEAST FOUNDATIO 12 LDS N I&R ONLY RADIOLOGI 48601 [place] ALANIS C 7 MEDICAL EXAMINATI SERV ON CHEST FOUNDATIO SINGLE N VIEW FRONTAL RADIOLOGI 64936 [place] ALANIS C 7 MEDICAL EXAMINATI SERV ON CHEST FOUNDATIO SINGLE N VIEW FRONTAL CRITICAL 49265 [place] ALONDRA CARE 7 MEDICAL ILL/INJUR SERV ED FOUNDATIO PATIENT N INIT 30-74 MIN ECG 05471 [place] DAMIAN ROUTINE 7 MEDICAL ECG SERV W/LEAST FOUNDATIO 12 LDS N I&R ONLY CRITICAL 51768 [place] ALONDRA CARE 7 MEDICAL ILL/INJUR SERV ED FOUNDATIO PATIENT N INIT 30-74 MIN RADIOLOGI 44946 [place] TREVON C 7 MEDICAL EXAMINATI SERV ON CHEST FOUNDATIO SINGLE N VIEW FRONTAL RADIOLOGI 62068 [place] ONEAL C 7 MEDICAL EXAMINATI SERV ON CHEST FOUNDATIO SINGLE N VIEW FRONTAL CRITICAL 08950 [place] AL[place] CARE 7 MEDICAL ILL/INJUR SERV ED FOUNDATIO PATIENT N INIT 30-74 MIN COLONOSCO 33925 [place] SHEDLOFSK PY FLX DX 7 MEDICAL Y W/COLLJ SERV SPEC WHEN FOUNDATIO PFRMD N ESOPHAGOG 03-09-201 39953 [place] ANNELIESE ASTRODUOD 7 MEDICAL Y ENOSCOPY SERV TRANSORAL FOUNDATIO N DIAGNOSTI C RADEX 35600 [place] DL ABDOMEN 1 7 MEDICAL SERV ANTEROPOS FOUNDATIO TERIOR N VIEW RADEX 95248 [place] DL ABDOMEN 1 7 MEDICAL SERV ANTEROPOS FOUNDATIO TERIOR N VIEW DUP-SCAN 51288 [place] JESSICA ARTL TIMOTHY 7 MEDICAL ABDL/PEL/ SERV SCROT&/RP FOUNDATIO R ORGN N COM SBSQ 74545 [facility] 7 NURSE CARE/DAY PRACTITIO 25 NER GR MINUTES CRITICAL 05708 [place] ALONDRA CARE 7 MEDICAL ILL/INJUR SERV ED FOUNDATIO PATIENT N INIT 30-74 MIN RADIOLOGI 51671 [place] TREVON C 7 MEDICAL EXAMINATI SERV ON CHEST FOUNDATIO SINGLE N VIEW FRONTAL RADIOLOGI 46764 [place] IDNU C 7 MEDICAL EXAMINATI SERV ON CHEST FOUNDATIO SINGLE N VIEW FRONTAL CRITICAL 22170 [place] AL[place]DR[place] CARE 7 MEDICAL ILL/INJUR SERV ED FOUNDATIO PATIENT N INIT 30-74 MIN CRITICAL 06219 [place] AL[place]DR[place] CARE 7 MEDICAL ILL/INJUR SERV ED FOUNDATIO PATIENT N INIT 30-[address] [facility] 7 NURSE CARE/DAY PRACTITIO 35 NER GR MINUTES RADIOLOGI 94086 [place] ONEAL C 7 MEDICAL EXAMINATI SERV ON CHEST FOUNDATIO SINGLE N VIEW FRONTAL ECG 34694 [place] BENSON ROUTINE 7 MEDICAL ECG SERV W/LEAST FOUNDATIO 12 LDS N I&R ONLY RADIOLOGI 40541 [place] RONAN C 7 MEDICAL EXAMINATI SERV ON CHEST FOUNDATIO SINGLE N VIEW FRONTAL RADIOLOGI 25639 [place] RONAN C 7 MEDICAL EXAMINATI SERV ON CHEST FOUNDATIO SINGLE N VIEW FRONTAL RADEX 08118 [place] JESSICA ABDOMEN 1 7 MEDICAL SERV ANTEROPOS FOUNDATIO TERIOR N VIEW GROUND A0425 [facility] 7 AMBULANCE AMBULANCE PER SERVICE SERVICE STATUTE MILE ECG 34519 [place] BENSON ROUTINE 7 MEDICAL ECG SERV W/LEAST FOUNDATIO 12 LDS N I&R ONLY RADIOLOGI 25091 BEN[facility] WYNNE C 7 MEDICAL MONA EXAMINATI SERV ON CHEST FOUNDATIO SINGLE N VIEW FRONTAL AMB A0427 [facility] SERVICE 7 AMBULANCE AMBULANCE ALS SERVICE SERVICE EMERGENCY TRANSPORT LEVEL 1 [facility] 68590 B[facility] NICOLAS PHYS [facility] 7 MEDICAL AUTHJ SERV DEVIJ FOUNDATIO STANDARD N REPRT INITIAL 02290 [facility] INPATIENT 7 NURSE CONSULT PRACTITBRIELLE ARROYO/MATTIE VALDOVINOS GR PT 80 MIN SERVICES 85656 [facility] PROVIDED 7 PHYSICIAN U BTW 10 S, PLLC PM&8 AM AT 24-HR FACI AMB A0427 [facility] SERVICE 7 AMBULANCE AMBULANCE ALS SERVICE SERVICE EMERGENCY TRANSPORT LEVEL 1 GROUND A0425 [facility] MILEAGE 7 AMBULANCE AMBULANCE PER SERVICE SERVICE STATUTE MILE GROUND A0425 [facility] MILEAGE 7 AMBULANCE AMBULANCE PER SERVICE SERVICE STATUTE MILE AMBULANCE A0429 [facility] SERVICE 7 AMBULANCE AMBULANCE S SERVICE SERVICE EMERGENCY TRANSPORT RADIOLOGI 20574 [place] EXAM 7 MEDICAL CHEST 2 IMAGING VIEWS ASS FRONTAL&L ATERAL SERVICES 44402 [facility] PROVIDED 7 PHYSICIAN U BTW 10 S, PLLC PM&8 AM AT 24-HR FACI CRITICAL 30664 [facility] 7 PHYSICIAN U ILL/INJUR S, PLLC ED PATIENT INIT 30-74 MIN GROUND A0425 [facility] MILEAGE 7 [facility] PER [facility] STATUTE EMS EMS MILE OBSERVATI 45621 [facility] ON CARE 7 MEDICINE A DISCHARGE SERVICES O MANAGEMEN T INITIAL 74565 [facility] OBSERVATI 7 MEDICINE A ON SERVICES CARE/DAY O 70 MINUTES RADIOLOGI 09849 [facility] [place] SCALF C EXAM 7 RADIOLOGY CHEST 2 VIEWS FRONTAL&L ATERAL RADIOLOGI 77597 [facility] FIGUEROA C EXAM 7 MEDICAL CHEST 2 IMAGING VIEWS ASS FRONTAL&L ATERAL RADIOLOGI 35588 [place] C EXAM 7 MEDICAL CHEST 2 IMAGING VIEWS ASS FRONTAL&L ATERAL GROUND A0425 [facility] AMBULANCE PER SERVICE SERVICE STATUTE [facility] A0427 [facility] SERVICE 7 AMBULANCE AMBULANCE ALS SERVICE SERVICE EMERGENCY TRANSPORT LEVEL 1 RADEX 22249 [facility] [place] SCALF MARILIN RIBS 6 RADIOLOGY UNILATERA L 2 VIEWS PROTHROMB 97493 ESTANCIA DILEEP IN TIME 6 [facility] COLLECTIO 39646 [facility] N VENOUS 6 [facility] VENIPUNCT URE COMPREHEN 22133 [facility] SIVE 6 [facility] PANEL BLOOD 22288 [facility] COUNT 6 [facility] [place] [address] [facility] [place] ABDOMEN & 6 RADIOLOGY RHO PELVIS W/O CONTRAST MATERIAL RADEX 44999 [facility] [place] RIBS UNI 6 RADIOLOGY RHO W/POSTERO ANT CH MINIMUM 3 VIEWS RADIOLOGI 62881 [facility] MATIAS C 6 CLARISSA EXAMINATI EMERGENCY ON CHEST PHYS SINGLE VIEW FRONTAL RADEX 12513 [facility] RIBS 6 CL[place]ISSA UNILATERA EMERGENCY L 2 VIEWS PHYS RADIOLOGI 32488 [facility] [place] LAYNE C 6 RADIOLOGY RHO EXAMINATI ON CHEST SINGLE VIEW FRONTAL ECG 82027 [facility] ARNOLD ROUTINE 6 CLARISSA LAST ECG EMERGENCY W/LEAST PHYS 12 LDS I&R ONLY ECG 30644 [place] DAMIAN LASHAWN ROUTINE 6 MEDICAL ECG SERV W/LEAST FOUNDATIO 12 LDS N I&R ONLY RADIOLOGI 27590 LA DAGO HOGAN C EXAM 6 MEDICAL MARY KATE CHEST 2 SERV VIEWS FOUNDATIO FRONTAL&L N ATERAL HEMOGLOBI 73069 S JIM N 6 NURSE REGINALD GLYCOSYLA PRACTITIO DANE A1C NER GR POLYSOM 69880 LINDA GALLO GALLO LINDA 6/>YRS 6 MD SLEEP 4/> CONSULTIN ADDL G SRV SYBIL ATTND MRI 80345 [place] BURG[place] JENNIFER ABDOMEN 6 MEDICAL W/O & SERV W/CONTRAS FOUNDATIO T N MATERIAL POLYSOM 62103 DILEEP FALK 6/>YRS 6 [facility] SLEEP 4/> HOSPITAL HOSPITAL ADDL SYBIL ATTND BLOOD 18277 DILEEP FALK COUNT 6 [facility] AUTOMATED PROTHROMB 08523 DILEEP FALK IN TIME 6 [facility] COMPREHEN 09419 DILEEP FALK SIVE 6 [facility] PANEL COLLECTIO 97366 DILEEP FALK N VENOUS 6 [facility] VENIPUNCT URE ECHO 15369 LINDA GALLO GALLO LINDA TTHRC R-T 6 2D CONSULTIN W/WOM-MOD G SRV E COMPL SPEC&COLR D COLLECTIO 71662 MANUEL ARNDT JAMIE N VENOUS 6 FAMILY BLOOD PHYSICIAN VENIPUNCT S PLLC URE COMPREHEN 04535 [address] SIVE 6 GROUP [facility] PANEL INITIAL 99957 [facility] DIAZ OBSERVATI 6 CLARISSA ISIDRA ON PHYSICIAN CARE/DAY SERVI 30 MINUTES RADIOLOGI 97721 [facility] [place] SHAY C 6 RADIOLOGY III MARY KATE EXAMINATI ON CHEST SINGLE VIEW FRONTAL RADIOLOGI 49267 [facility] SWINEY C 6 CLARISSA PAT EXAMINATI EMERGENCY ON CHEST PHYS SINGLE VIEW FRONTAL RADIOLOGI 02135 [facility] [place] SCALF MRAILIN C EXAM 6 RADIOLOGY CHEST 2 VIEWS FRONTAL&L ATERAL ECG 82179 [facility] SWINEY ROUTINE 6 CLARISSA PAT ECG EMERGENCY W/LEAST PHYS 12 LDS I&R ONLY LACTATE 03923 [facility] DEHYDROGE 6 Y Y NASE [facility] [place] [address] [facility] GAMMAGLOB 6 Y Y [facility] [address] [facility] HAPTOGLOB 6 Y Y IN [facility] QUANTITAT NAIF ANTINUCLE 06102 [facility] 6 Y Y ANTIBODIE [facility] S COLLINS BLOOD 46234 [facility] COUNT 6 Y Y RETICULOC [facility] YTES AUTO 1/> [place] [address] [facility] FREE 6 Y Y TH[facility]ROXINE [facility] CERULOPLA 42104 [facility] SMIN 6 [place] [address] [facility] FOLIC 6 Y Y ACID RBC [facility] [place] [address] [facility] IRON 6 Y Y HOSPITAL HOSPITAL HEPATITIS 87519 [facility] B SURF 6 Y Y ANTIBODY [facility] [place] [address] [facility] FERRITIN 6 Y Y HOSPITAL [facility] IMMUNOASS 77405 [facility] AY 6 Y Y ANALYTE [facility] QUAL/SEMI QUAL MULTIPLE STEP GENERAL 27525 [facility] HEALTH 6 Y Y PANEL [facility] COLD 72096 [facility] AGGLUTINI 6 Y Y N TITER [facility] COLLECTIO 84205 [facility] N VENOUS 6 Y Y BLOOD [facility] VENIPUNCT URE HEPATITIS 37800 [facility] A 6 Y Y ANTIBODY [facility] [address] [facility] [place] SCAL[place] MARILIN ABDOMEN & 5 RADIOLOGY PELVIS W/CONTRAS T MATERIAL ESOPHAGOG 58807 DAYNA TURNER ASTRODUOD [address] [place] [address] ENOSCOPY PHYSICIAN TRANSORAL PRA DIAGNOSTI C ANES 36574 [place] UPPER GI 5 ANESTHESI ENDOSCOPY A GROUP PROXIMAL PS TO DUODENUM RADIOLOGI 60781 [facility] C [address] [place] [address] ON CHEST SINGLE VIEW FRONTAL RADEX 36714 [facility] SPINE [address] [place] [address] AL 2/3 [place] [address] [facility] LIPASE [address] [place] [address] [place] [address] [facility] AMYLASE [address] [place] [address] COMPREHEN 15321 [facility] SIVE [address] [place] [address] HOSPITAL PANEL IAADIADOO [address] INFLUENZA [facility] HI OSM Q9963 DILEEP FALK CONTRST 5 [facility] 350-399 MG/ML IODINE CONC ML URNLS DIP 91317 [facility] DILEEP [address] [place] [address] [facility] HOSPITAL LET REAGENT AUTO MICROSCOP Y GLUC BLD 91187 DILEEP FALK GLUC MNTR 5 [facility] CLEARED FDA SPEC HOME USE BLOOD 80872 DILEEP FALK COUNT 5 [facility]&[place] [address] [facility]ITAL[facility] FALK ABDOMEN & 5 [facility] PELVIS [facility] W/O CONTRAST MATERIAL ONDANSETR Q0162 DILEEP FALK ON 1 MG 5 [facility] EXCEED 48 HR DOSE REG COLLECTIO 64715 DILEEP FALK N VENOUS 5 [facility] VENIPUNCT URE COLLECTIO 45718 [facility]ITAL[facility] N [facility]ENOUS 5 [facility] VENIPUNCT URE COMPREHEN 38252 DILEEP FALK SIVE [address] [place] [address] [place] [address] IRAJW[facility]ITALJOCELYNN FALK LIPASE [address] [place] [address] KETOROLAC [facility] TROMETHAM INE PER 15 MG URNLS DIP 77972 [facility]ITAL[facility]OCELYNN FALK [address] [place] [address] [facility] HOSPITAL LET REAGENT AUTO MICROSCOP Y BLOOD 87955 DILEEP FALK COUNT 5 [facility] AUTO&AUTO DIFRNTL WBC BLOOD 94968 [facility] COUNT 5 Y Y [facility] HOSPITAL AUTO&[place] [address] [facility] ABDOMINAL 5 Y Y REAL HOS[facility]ITAL HOSPITAL TIME W/[place] [address] [facility] LIPASE 5 [place] [address] [facility] LACTATE 5 Y Y HOSPITAL HOSPITAL COMPREHEN 32015 [facility] SIVE 5 [facility] PANEL INJECTION J2405 [facility] 5 [facility] ON HCL PER 1 MG THER 62158 [facility]DX 5 Y Y NJX [facility] HOSPITAL PUSH SINGLE/1S T SBST/[place] [address] [facility] [place] ABDOMINAL 5 RADIOLOGY RHO REAL TIME W/[place] [address] [facility] ABDOMINAL 5 [facility] HOSPITAL TIME W/IMAGE DOCUMENTA TION INJECTION J24[address] ON HCL PER 1 MG INJECTION J11[address] JEANNINE UP TO [address] [facility] 5 CLARISSA EDGAR IGN DAY PHYSICIAN MANAGEMEN SERVI T 30 MIN/< SBSQ 78492 [place] [address] CL[place] HUG CARE/DAY PHYSICIAN 25 SERVI MINUTES SBSQ 58035 [place] [address] CL[place] HUG CARE/DAY PHYSICIAN 35 SERVI MINUTES INITIAL 84242 [facility] 5 CLARISSA A GOP CARE/DAY PHYSIC[place] [address] [place] [address] [facility] [place] WEBBER ABDOMEN & 5 RADIOLOGY RAY PELVIS W/O CONTRAST MATERIAL HEMOGLOBI [address]13 [address] N 5 GROUP GROUP GLYCOSYLA [facility] DANE A1C BLOOD 73216 [address] PATH COUNT 5 GROUP GROUP COMPLETE [facility] AUTO&AUTO DIFRNTL WBC COLLECTIO 12039 MANUEL GREEN JAMIE N VENOUS 5 FAMILY BLOOD PHYSICIAN VENIPUNCT S PLLC URE COMPREHEN 04705 [address] SIVE 5 GROUP GROUP [facility] PANEL CYANOCOBA 90519 [address] NAHOMI 5 GROUP GROUP VITAMIN [facility] [employer] B-12 [place] [address] [facility] LIPASE [address] [place] [address] COMPREHEN 08577 [facility] SIVE [address] [place] [address] PANEL COLLECTIO 78542 ESTANCIA MACARIOJOCELYNN N VENOUS [address] [place] [address] VENIPUNCT URE GLUC BLD 66522 [facility] GLUC MNTR 5 [facility] CLEARED FDA SPEC HOME USE GLUC BLD 33892 [facility] GLUC MNTR 5 [facility] CLEARED FDA SPEC HOME USE BLOOD 49842 ESTANCIA BRANDAN PET COUNT 5 [facility] AUTOMATED PRESSURIZ 16784 [facility] ED/NONPRE [address] [place] [address] [facility] INHALATIO N TREATMENT COMPREHEN 05811 [facility] SIVE [address] [place] [address] HOSPITAL PANEL INITIAL [address] IGN ON PHYSICIAN CARE/DAY SERVI 70 MINUTES GENERAL [address] HOSPITAL IAADIADOO [address] [facility] HOSPITAL [id number] [place] [address] [facility] AMYLASE [address] [place] [address] [place] [address] [facility] LIPASE [address] [place] [address] HOSPITAL NONINVASI 96419 [facility] VE [address] [place] [address] [facility] OXIMETRY SINGLE DETER RADIOLOGI 50426 [facility] [place] C EXAM 5 RADIOLOGY RHO CHEST 2 VIEWS FRONTAL&L ATERAL GLUC BLD 69193 [facility] GLUC MNTR 5 [facility] CLEARED FDA SPEC HOME USE NATRIURET 74863 [facility] IC [address] [place] [address] PEPTIDE [facility] URNLS DIP [address] [facility] HOSPITAL LET REAGENT AUTO MICROSCOP Y CULTURE 55273 [facility] BACTERIAL [address] [place] [address] HOSPITAL AEROBIC W/ID ISOLATES IAADIADOO [address] [facility] CCUS GROUP A HEMOGLOBI 48029 [facility] JOSE ANTONIO LUISA N 4 NURSE PETER PRACTITBRIELLE DANE A1C NER GR IM ADM 1120-201 85238 [facility] PR[facility] ID 4 [facility] SUBQ/IM HLTH DEPT HLTH DEPT NJXS EA RESHMA RESHMA VACCINE HEPA 40855 [facility] ADULT HLTH DEPT HLTH DEPT DOSE FOR RESHMA RESHMA INTRAMUSC ULAR USE HEPB 14420 [facility] ADULT 3 HLTH DEPT HLTH DEPT DOSE RESHMA RESHMA SCHEDULE FOR IM USE IM ADM 60074 [facility] PRQ ID [facility] SUBQ/IM HLTH DEPT HLTH DEPT NJXS 1 RESHMA RESHMA VACCINE RADEX 79099 [facility] [place] ABDOMEN 4 RADIOLOGY RHO COMPL W/DCBTS&/ [place] [address] [facility] [place] ABDOMINAL 4 RADIOLOGY RHO REAL TIME W/IMAGE DOCUMENTA TION DXA BONE 11756 [facility] [place] DENSITY 4 RADIOLOGY RHO STUDY 1/> SITES AXIAL SKEL COMPRE 85970 [facility] AUDIOMETR 4 PHYSICIAN Y PRACTICE THRESHOLD L EVAL SP RECOGNIJ TYMPANOME 02998 [place] [facility] SET TRY 4 PHYSICIAN PRACTICE L PROTHROMB 80182 [facility] IN TIME 4 Y Y HOSPITAL [facility] HEPATITIS 92354 [facility] Y Y ANTIBODY [facility] HBSAB HEPATITIS 57757 [facility] 4 Y Y [facility]AA[facility] Encounters Encounter Start End Date Code Location Performer Type Date EMERGENCY 28661 [facility] DEPT 7 7 CLARISSA VISIT EMERGENCY HIGH PHYS SEVERITY& THREAT FUNCJ EMERGENCY 93666 [facility] 7 7 CLARISSA DEPARTMEN EMERGENCY T VISIT PHYS HIGH/URGE NT SEVERITY EMERGENCY 97440 [facility] 7 7 MEDICAL VISIT SERV HIGH FOUNDATIO SEVERITY& N THREAT FUNCJ EMERGENCY 77425 7 7 [facility]ALTH[facility] DEPARTMEN E T VISIT HOSPITALS HIGH/URGE NT SEVERITY [facility] 7 7 [facility]ALS EMERGENCY 81220 [facility] DEPT 7 7 CLARIS[place] VISIT EMERGENCY HIGH PHYS SEVERITY& THREAT [facility] ESTANCIA - 7 7 [facility] 7 7 [facility] 8[facility]25 [facility] VISIT HOSPITAL HIGH SEVERITY& THREAT FUNJ EMERGENCY 21266 [facility] 7 7 MEDICAL VISIT SERV HIGH FOUNDATIO SEVERITY& N THREAT FUNJ OFFICE 74703 [facility] 7 7 FAMILY T VISIT PHYSICIAN 15 S PLLC MINUTES EMERGENCY 16811 [facility] 7 7 CLARISSA DEPARTMEN EMERGENCY T VISIT PHYS HIGH/URGE NT SEVERITY [facility]OSPITAL - 7 7 [facility] INPATIENT E HOSPITALS EMERGENCY 38086 [facility] 7 7 MEDICAL VISIT SERV HIGH FOUNDATIO SEVERITY& N THREAT [facility] ESTANCIA - 7 7 [facility] T EMERGENCY 54231 [facility] 7 7 CLARISSA DEPARTMEN EMERGENCY T VISIT PHYS HIGH/URGE NT SEVERITY EMERGENCY 74648 [facility] DEPT 7 7 CL[place]IS[place] VISIT EMERGENCY HIGH PHYS SEVERITY& THREAT FUNJ EMERGENCY 71152 [facility] 7 7 PHYSICIAN U VISIT S, PLLC HIGH SEVERITY& THREAT FUNCJ OFFICE 39334 [facility] OFF[facility] FRAME WIRER CONSULTAT 7 7 MEDICAL ION SERV NEW/ESTAB FOUNDATIO PATIENT N 80 MIN EMERGENCY 21552 [facility] 7 7 MEDICAL DEPARTMEN SERV T VISIT FOUNDATIO MODERATE N SEVERITY EMERGENCY 65752 [facility] GEREMIAS DEPT 7 7 CL[place] VISIT EMERGENCY HIGH PHYS SEVERITY& THREAT FUNJ EMERGENCY 71707 [facility] CHESTNUT 6 6 CLARISSA DEPARTMEN EMERGENCY T VISIT PHYS HIGH/URGE NT SEVERITY EMERGENCY 94658 [facility] SWINEY 6 6 CLARISSA PAT DEPARTMEN EMERGENCY T VISIT PHYS HIGH/URGE NT SEVERITY [facility] [place] - 6 6 [facility] T OFFICE 31934 MANUEL AYALA OUTPATIEN 6 6 FAMILY T VISIT PHYSICIAN 15 S PLLC MINUTES EMERGENCY 76117 [facility] MATIAS DEPT 6 6 CL[place] VISIT EMERGENCY HIGH PHYS SEVERITY& THREAT FUNCJ EMERGENCY 46419 [facility] ARNOLD DEPT 6 6 CLARISSA LAST VISIT EMERGENCY HIGH PHYS SEVERITY& THREAT FUNCJ EMERGENCY [address] 6 6 MEDICAL DEPARTMEN SERV T VISIT FOUNDATIO LOW/MODER N SEVERITY OFFICE 48373 [facility] 6 6 NURSE REGINALD T VISIT PRACTITIO 25 NER GR MINUTES EMERGENCY 84815 [facility] SW[facility] 6 6 CLARISSA PAT DEPARTMEN EMERGENCY T VISIT PHYS HIGH/URGE NT SEVERITY [facility] [place] - 6 6 [facility] T OFFICE 12403 [facility] 6 6 FOOT & T NEW 30 ANKLE CE MINUTES OFFICE 46779 MANUEL AYALA OUTPATIEN 6 6 FAMILY T VISIT PHYSICIAN 15 S PLLC MINUTES EMERGENCY 70262 [facility] MERCADOID [facility]NA 6 6 MEDICAL DEPARTMEN SERV T VISIT FOUNDATIO MODERATE N SEVERITY EMERGENCY 59420 [facility] DEPT 6 6 CLARISSA KATHY VISIT EMERGENCY HIGH PHYS SEVERITY& THREAT FUNCJ OFFICE 35316 MANUEL YRIS AYALA OUTPATIEN 6 6 FAMILY T VISIT PHYSICIAN 25 S PLLC MINUTES EMERGENCY 45499 [facility] DEPT 6 6 CLARISSA PAT VISIT EMERGENCY HIGH PHYS SEVERITY& THREAT FUNCJ EMERGENCY 90931 [facility] DEPT 6 6 [place] KATHY VISIT EMERGENCY HIGH PHYS SEVERITY& THREAT FUNCJ OFFICE 69901 [facility] 6 6 Y OF RTHY JERRY T VISIT [place] 15 HOSPI MINUTES OFFICE 45030 MANUEL GREEN JAMIE OUTPATIEN 6 6 FAMILY T VISIT PHYSICIAN 15 S PLLC MINUTES EMERGENCY 05576 [facility] 6 6 CL[place]IS[place] PAT DEPARTMEN EMERGENCY T VISIT PHYS HIGH/URGE NT SEVERITY [facility] 72515 MANUEL GREEN JAMIE OUTPATIEN 5 5 FAMILY T VISIT PHYSICIAN 15 S PLLC MINUTES OFFICE 99856 MANUEL GREEN JAMIE OUTPATIEN 5 5 FAMILY T VISIT PHYSICIAN 25 S PLLC MINUTES OFFICE 78035 MANUEL GREEN JAMIE OUTPATIEN 5 5 FAMILY T VISIT PHYSICIAN 15 S PLLC MINUTES EMERGENCY 30024 [facility] DEPT 5 5 CL[place]IS[place] COLLINS VISIT EMERGENCY HIGH PHYS SEVERITY& THREAT FUNCJ EMERGENCY 27572 [facility] 5 5 [facility] T VISIT HIGH/URGE NT SEVERITY [facility] T EMERGENCY 58809 [facility] 5 5 CL[place]IS[place] - YORBA DEPARTMEN EMERGENCY PAT T VISIT PHYS HIGH/URGE NT SEVERITY EMERGENCY 26470 [facility] 5 5 [facility] DEPARTMEN SERV T VISIT FOUNDATIO MODERATE N SEVERITY EMERGENCY 23720 [facility] 5 5 Y [facility] T VISIT [facility]IGH/URGE NT SEVERITY [facility]OSPITAL [facility] - 5 5 [facility] 5 [facility] OFF[facility] 30735 [facility] FAMILY T VISIT PHYSICIAN 25 S PLLC MINUTES [facility]OSPITAL [place] - 5 5 [facility] T EMERGENCY 41917 [place] 5 5 [facility] T VISIT MODERATE SEVERITY EMERGENCY 53852 [facility] SON BAB 5 5 [place] DEPARTMEN EMERGENCY T VISIT PHYS HIGH/URGE NT SEVERITY OFFICE 70489 MANUEL AYALA [facility] [place] 5 5 FAMILY T VISIT PHYSICIAN 15 S PLLC MINUTES EMERGENCY 16261 [facility] CHANDEL DEPT 5 5 [place] COLL[facility] VISIT EMERGENCY HIGH PHYS SEVERITY& THREAT [facility] [place] - [address] [facility] OFFICE 50706 MANUEL AYALA [facility] [place] 5 5 FAMILY T VISIT PHYSICIAN 15 S PLLC MINUTES EMERGENCY 61802 [facility] [place] [facility] EMERGENC[facility] T VISIT PHYS HIGH/URGE NT SEVERITY EMERGENCY 87493 [place] 5 5 [facility] T VISIT MODERATE SEVERITY [facility] [place] - 5 5 [facility] OFF[facility] 03164 MANUEL AYALA OUTPATIEN 5 5 FAMILY T VISIT PHYSICIAN 15 S PLLC MINUTES EMERGENCY 14619 [facility] II DEPT 5 5 [place] THO VISIT EMERGENCY HIGH PHYS SEVERITY& THREAT [facility] OFFICE 19424 [facility] 4 4 NURSE T NEW 45 PRACTITIO MINUTES NER GR OFFICE 67360 MANUEL AYALA OUTPATIEN 4 4 FAMILY T VISIT PHYSICIAN 15 S PLLC MINUTES OFFICE 20882 MANUEL AYALA OUTPATIEN 4 4 FAMILY T VISIT PHYSICIAN 25 S PLLC MINUTES EMERGENCY 73901 [facility] DEPT 4 4 [place] [facility] VISIT EMERGENCY HIGH PHYSI SEVERITY& THREAT [facility] DILEEP - 4 4 [facility] OFFICE 44249 DILEEP CLARK OUTPATIEN 4 4 PHYSICIAN LES T VISIT PRACTICE 15 L MINUTES OFFICE 48009 [facility]IFF[facility] OUTPATIEN 4 4 MEDICAL [facility]LL[facility] T VISIT SERV 25 FOUNDATIO MINUTES [facility] [facility] [id number] DILEEP [facility] CONSULTAT 4 4 PHYSICIAN LES ION PRACTICE NEW/ESTAB L PATIENT 40 MIN OFFICE [id number] MANUEL AYALA OUTPATIEN 4 4 FAMILY T VISIT PHYSICIAN 15 S PLLC MINUTES
--- OUTSIDE RECORDS SUMMARY | 2017-06-28 02:50 | External Medical Summary Rpt | CCD ---
Author Author , UNIQUE Organization UNIQUE Address Unknown Phone Care Team Providers Care Clinic Supervisor Name Role Phone SIMONE CHICHI, SIMONE CHICHI Unavailable Unavailable ARNOLD, ARNOLD Unavailable Unavailable ARNOLD LAST, ARNOLD Unavailable Unavailable LAST EDUARDO LES, EDUARDO Unavailable Unavailable LES LAYTON, LAYTON Unavailable Unavailable AVALLONE, AVALLONE Unavailable Unavailable BEINEKE, BEINEKE Unavailable Unavailable PULIDO, PULIDO Unavailable Unavailable [facility] Unavailable Unavailable [facility], [facility] PHYSICIAN Unavailable Unavailable PRACTICE L, [facility], [facility] Unavailable Unavailable [facility] Unavailable Unavailable SERVICE, [facility] MICHAEL EDGAR, MICHAEL Unavailable [...] Unavailable [facility] Unavailable Unavailable PHYSICIAN PRA, [facility] PHYSICIAN PRA [facility] [place] [facility], [...] Unavailable SERVICES O, [facility] O 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, 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 Unavailable Unavailable SHAY III, SHAY Unavailable Unavailable [...] [facility], Unavailable [facility]available [facility] JESSICA, JESSICA Unavailable Unavailable [place] [...] LINDA GALLO MD CONSULTING SRV [facility] Unavailable Unavailable EMS, [facility] Unavailable Unavailable EMS, [facility] Unavailable Unavailable [facility], Unavailable Unavailable PLLC, [facility], [facility], Unavailable Unavailable [facility] [employer], Unavailable Unavailable [facility] RICCI DUNN, Unavailable Unavailable [...] Unavailable Unavailable [facility] Unavailable Unavailable HOSPITALS, [facility], Unavailable Unavailable [facility] Unavailable [facility] BRENNAN MARY KATE, BRENNAN Unavailable Unavailable MARY KATE JIM REGINALD, JIM Unavailable Unavailable REGINALD ALANIS, ALANIS Unavailable Unavailable [facility] Unavailable Unavailable DEPT RES[facility], [facility] Unavailable Unavailable DEPT RESHMA, [facility] DEPT RES[facility]MA NICOLAS VALENZUELA Unavailable Unavailable [facility] GIMENEZKLER Unavailable Unavailable [...] STATUS IMAGING ASS UNSPECIFIED D539 NUTRITIONAL 05-08-2017 [facility] UNSPECIFIED [facility]ATION D696 THROMBOCYTO 05-08-2017 [facility] PENIA [facility] UNSPECIFIED FOUNDATION R109 UNSPECIFIED 05-08-2017 [facility] ABDOMINAL SERV PAIN [facility]OUND[facility] R140 ABDOMINAL 05-08-2017 [facility] DISTENSION SERV GASEOUS FOUNDATION R079 CHEST PAIN 05-07-2017 [facility] UNSPECIFIED RADIOLOGY K7581 NONALCOHOLI 05-06-2017 [facility] C [...] O FAILURE WITHOUT COMA R51 HEADACHE 02-14-2017 [facility] 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 [facility] CURRENT USE [facility] INSULIN [facility] Z7984 SHELTER 02-14-2017 [facility] USE OF ORAL [facility] HYPOGLYCEMI C DRUGS Z9119 PATIENTS 02-14-2017 [facility] NONCOMPLIAN [facility] CE W/OTH [facility]OSP[facility] MED TX & REGIMEN D649 ANEMIA 01-31-2017 [facility] UNSPECIFIED SERV [facility]OUNDATION K922 GASTROINTES 01-30-2017 [facility] TINAL SERV HEMORRHAGE [facility]OUNDATION UNSPECIFIED E1165 TYPE 2 01-29-2017 [facility]IANS WITH PLLC HYPERGLYCEM IA T11577 PAIN IN 01-29-2017 [facility] RIGHT FOOT [facility] U38405 PAIN IN 01-29-2017 [facility] LEFT FOOT [facility] R600 LOCALIZED [...] AWAITING 01-12-2017 [facility] STATUS E65122 EFFUSION 12-27-2016 [facility] RIGHT ANKLE N EMERGENCY PHYS T17413 EFFUSION 12-27-2016 [facility] LEFT ANKLE N EMERGENCY [...] R490 DYSPHONIA 11-21-2016 [facility] [id number] OTH FORGEN 11-20-2016 [place] [facility] OBJ RESP [...] I2119 ST 11-16-2016 [place] [facility] DC INVOLV [facility] OTH CORONARY ART INF WALL [...] J9811 ATELECTASIS 11-13-2016 [facility] U3243HT OTHER 11-13-2016 [place] [facility] POSTPROCEDU SERV RAL [place] SUBSEQUENT ENCOUNTER R0989 OTH SPEC SX 11-12-2016 [place] [facility] & SIGNS SERV INVLV THE [facility]ATION CIRC & RESP SYS E806 OTHER 11-11-2016 [facility] DISORDERS SERV OF [facility]OUNDATION BILIRUBIN METABOLISM E872 ACIDOSIS 11-11-2016 [facility] E876 HYPOKALEMIA 11-11-2016 [facility] I4891 UNSPECIFIED 11-11-2016 [place] [facility] ATRIAL [facility] FIBRILLATIO FOUNDATION N I959 HYPOTENSION 11-11-2016 S NURSE BREANNA UNSPECIFIED R GR J849 INTERSTITIA 11-11-2016 [facility] L PULMONARY SERV DISEASE FOUNDATION UNSPECIFIED J984 OTHER 11-11-2016 [place] [facility] DISORDERS SERV OF LUNG FOUNDATION Z452 ENCOUNTER 11-09-2016 [facility] ADJUSTMENT& SERV MGMT FOUNDATION VASCULAR ACCESS DEVICE E875 HYPERKALEMI 11-08-2016 S NURSE Javy CARLOS R GR I459 CONDUCTION 11-08-2016 [facility] DISORDER SERV UNSPECIFIED FOUNDATION K920 HEMATEMESIS 11-08-2016 AC LOPEZ, [facility] K8020 CALCULUS GB 11-07-2016 [facility] W/O SERV CHOLECYSTIT FOUNDATION IS W/O OBSTRUCTION R188 OTHER 11-07-2016 [place] [facility] ASCITES SERV [facility] Z8719 PERSONAL 11-07-2016 [place] [facility] HISTORY SERV OTHER FOUNDATION DISEASES DIGESTIVE SYSTEM R531 WEAKNESS 11-06-2016 AC LOPEZ, [facility] M542 CERVICALGIA 10-21-2016 [facility] M6281 MUSCLE 10-21-[address] [facility] R1030 LOWER 10-21-2016 [facility] ABDOMINAL SERV PAIN FOUNDATION UNSPECIFIED R05 COUGH 10-09-2016 [facility] J189 PNEUMONIA 09-22-2016 [place] UNSPECIFIED MEDICAL ORGANISM IMAGING ASS Z09 ENC F/U 09-22-2016 [place] EXAM AFTR MEDICAL CMPL TX OTH IMAGING ASS THAN MALIG NEOPLSM R509 FEVER 09-19-2016 [facility] UNSPECIFIED MEDICAL IMAGING ASS H1133 CONJUNCTIVA 07-28-2016 [facility] L N EMERGENCY HEMORRHAGE PHYS BILATERAL R030 ELEVATED 07-28-2016 [facility] BLOOD-PRESS N EMERGENCY URE READING PHYS WITHOUT DX HTN R0789 OTHER CHEST 07-28-2016 [facility] PAIN N EMERGENCY PHYS F438LTP OTHER 07-28-2016 [facility] SPECIFIED RADIOLOGY INJURIES THORAX INITIAL ENC H1032 UNSPECIFIED 07-24-2016 [facility] ACUTE FAMILY CONJUNCTIVI PHYSICIANS TIS LEFT [facility] EYE H1132 CONJUNCTIVA 07-22-2016 [facility] L N EMERGENCY HEMORRHAGE PHYS LEFT EYE S161GXT CONTUSION 07-22-2016 [facility] OF N EMERGENCY ABDOMINAL PHYS WALL INITIAL ENCOUNTER E8342 HYPOMAGNESE 07-01-2016 [facility] TONI N EMERGENCY PHYS G0430 ACUTE 07-01-2016 [facility] NECROTIZING N EMERGENCY PHYS HEMORRHAGIC ENCEPHALOPA THY UNS R1110 VOMITING 06-28-2016 [facility] UNSPECIFIED SERV FOUNDATION G4710 HYPERSOMNIA 06-11-2016 LINDA GALLO MD UNSPECIFIED CONSULTING SRV D490 NEOPLASM OF 06-07-2016 [facility] UNS SERV BEHAVIOR FOUNDATION DIGESTIVE SYSTEM K766 PORTAL 06-07-2016 [facility] HYPERTENSIO SERV N FOUNDATION R161 SPLENOMEGAL 06-07-2016 [facility] Y NOT SERV ELSEWHERE FOUNDATION CLASSIFIED G479 SLEEP 06-03-2016 [facility]ORDER [facility] R0683 SNORING 06-03-2016 [facility] R5383 OTHER 06-03-2016 [facility] A58591 PAIN IN 05-20-2016 [place] UNSPECIFIED FOOT & LIMB ANKLE CE R072 PRECORDIAL 05-16-2016 LINDA JOSHI MD CONSULTING SRV G4733 OBSTRUCTIVE 05-02-2016 [facility] SLEEP [facility] [id number] TOX EFF OTH 04-08-2016 [facility] GASES N EMERGENCY FUMES & PHYS VAPORS ACC INITIAL ENC M545 LOW BACK 03-04-2016 [facility] PAIN [facility] R112 NAUSEA WITH 03-04-2016 [facility] UNSPECIFIED R1033 PERIUMBILIC 02-28-2016 [facility] AL PAIN N EMERGENCY PHYS R5381 OTHER 01-29-2016 [facility] MALAISE N EMERGENCY PHYS R17 UNSPECIFIED 01-26-2016 [facility] HOSPI L0390 CELLULITIS 01-08-2016 [facility] UNSPECIFIED [facility] PLL[facility] M546 PAIN IN 11-10-2015 [facility] THORACIC N EMERGENCY SPINE PHYS C05268 MUSCLE 11-10-2015 [facility] SPASM OF N EMERGENCY [...] ACUTE 06-07-2015 [facility] BRONCHITIS [facility] 14381 ABDOMINAL 06-07-2015 [facility] PAIN, FAMILY GENERALIZED [facility]YS[facility] 7242 LUMBAGO 06-01-2015 [facility] 7862 COUGH 06-01-2015 [facility] 19349 ABDOMINAL 06-01-2015 [facility] [place] PAIN RIGHT RADIOLOGY LOWER QUADRANT 92294 DIAB W/O 05-31-2015 [facility] COMP TYPE N EMERGENCY II/UNS NOT PHYS STATED UNCNTRL 4019 UNSPECIFIED 05-31-2015 [facility]SSENTIAL [facility] N 4549 ASYMPTOMATI 05-31-2015 [facility] C VARICOSE [facility] VEINS [facility] 5715 CIRRHOSIS 05-31-2015 [facility] OF LIVER [facility] WITHOUT HOSPITAL MENTION OF ALCOHOL 05284 OSTEOARTHRO 05-31-2015 [facility] S UNSPEC [facility] WHETHER [facility]OSP[facility] GEN/LOC UNSPEC SITE 7213 LUMBOSACRAL 05-31-2015 [facility] N EMERGENCY SPONDYLOSIS PHYS WITHOUT MYELOPATHY 47845 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 [facility] 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 30496 OTHER 05-31-2015 [facility] ASCITES [facility] V5867 LONG-TERM 05-31-2015 [facility] USE OF [facility] V5869 LONG-TERM 05-31-2015 [facility] (CURRENT) [facility] USE OF HOSPITAL OTHER MEDICATIONS 42583 NAUSEA WITH 05-26-2015 [facility] VOMITING [facility] 35409 ABDOMINAL 05-26-2015 [facility] PAIN RIGHT N EMERGENCY UPPER PHYS QUADRANT 39023 ABDOMINAL 05-26-2015 [facility] PAIN, LEFT N EMERGENCY LOWER PHYS QUADRANT 09949 ABDOMINAL 05-26-2015 [facility] PAIN, N EMERGENCY EPIGASTRIC PHYS V145 PERSONAL 05-26-2015 [facility] HISTORY OF COMMUNITY ALLERGY TO HOSPITAL NARCOTIC AGENT 42779 ABDOMINAL 05-04-2015 [facility] UNSPECIFIED SITE 5718 OTHER 04-12-2015 [facility] CHRONIC [facility] C LIVER DISEASE 42230 UNSPEC 04-12-2015 [facility] INJURY LIVR N EMERGENCY W/O PHYS MENTION OPN WOUND IN CAV 58606 DIAB W/O 03-27-2015 [facility] MENTION FAMILY COMP TYPE PHYSICIANS II/UNS TYPE PLLC UNCNTRL 97042 DIVERTICULI 03-27-2015 [facility] TIS OF FAMILY COLON PHYSICIANS PLLC 5589 OTH&UNSPEC 03-20-2015 [facility] NONINFECTIO N PHYSICIAN US SERVI GASTROENTER ITIS&COLITI S 5723 PORTAL 03-16-2015 [facility] [place] HYPERTENSIO RADIOLOGY N 65992 ABDOMINAL 03-16-2015 [facility] PAIN, N EMERGENCY PERIUMBILIC [...] OTHER N PHYSICIAN RESPIRATORY SERVI MANIFESTATI ONS 47010 FEVER 10-31-2014 [facility] UNSPECIFIED N PHYSICIAN SERVI 486 PNEUMONIA, 10-30-2014 [facility] ORGANISM N EMERGENCY UNSPECIFIED PHYS 70547 OBESITY, 08-24-2014 [facility] NURSE UNSPECIFIED PRACTITIONE R GR V069 NEED PROPH 07-28-2014 [facility] W/UNSPEC [facility] DEPT COMB RESHMA VACCINE 76834 DISORDER OF 07-05-2014 [facility] [place] BONE AND RADIOLOGY CARTILAGE UNSPECIFIED 7948 NONSPECIFIC 07-05-2014 [facility] [place] ABNORMAL RADIOLOGY RESULTS LIVR FUNCTION STUDY 61652 DYSFUNCTION 06-29-2014 [place] OF PHYSICIAN EUSTACHIAN PRACTICE L TUBE 12803 SUBJECTIVE 06-29-2014 [place] TINNITUS PHYSICIAN PRACTICE L 46273 SENSORINEUR 06-29-2014 [place] AL HEARING PHYSICIAN LOSS [...] 80 1- 0- 00 01 UC ve DC 21 20 20 03 [place] DE 61 [...] ve G 79 20 20 04 [place] DC 75 17 17 96 X 9 17 [...] 20 0- 6- 00 01 UC ve DC 76 20 20 05 [place] N 01 [...] ve G 79 20 20 04 [place] DC 75 17 17 96 X 9 17 [...] PH AR MA CY #3 01 6 SD 65 08 09 12 2 00 KE [...] 80 2- 1- 00 01 UC ve DC 21 20 20 03 [place] DE 61 [...] ve G 79 20 20 04 [place] DC 75 17 17 96 X 9 17 [...] 20 5- 4- 00 01 UC ve DC 76 20 20 02 [place] N 01 [...] 80 9- 8- 00 01 UC ve DC 21 20 20 03 [place] DE 61 [...] 20 9- 1- 00 01 UC ve DC 76 20 20 02 [place] N 01 [...] ve G 79 20 20 97 [place] DC 75 17 17 10 X 9 96 CV 75 S -2 PH 5 AR KW MA IK CY PE N LL C, DB A CV S PH AR MA CY #3 01 6 FU 00 05 06 30 30 00 KE Ac RO 37 -2 -2 .0 00 NT ti SE 80 4- 3- 00 01 UC ve DC 21 20 20 03 [place] DE 61 [...] 20 3- 3- 00 01 UC ve DC 76 20 20 02 [place] N 01 17 17 43 HC 0 90 CV L S 1, PH 00 AR 0 MA MG CY TA LL BL C, ET DB A CV S PH AR MA CY #3 01 6 DC 57 05 06 30 30 00 KE [...] PH AR MA CY #3 01 6 DC 57 04 05 30 30 00 KE [...] 20 3- 2- 00 00 UC ve DC 76 20 20 99 [place] N 01 [...] ve G 79 20 20 97 [place] DC 75 17 17 10 X 9 96 [...] PH AR MA CY #3 01 6 DC 57 03 04 30 30 00 KE [...] 20 7- 7- 00 00 UC ve DC 76 20 20 99 [place] N 01 [...] 44 7- 7- 00 26 UC ve DC 29 20 20 25 [place] DE 93 [...] 80 1- 0- 00 00 UC ve DC 20 20 20 97 [place] DE 81 [...] 00 [place] RA 30 17 17 11 DC 5 65 CV DE S PH 10 AR MA MG CY TA LL BL C, ET DB A CV S PH AR MA CY #3 01 6 DC 57 02 02 30 30 00 KE [...] 80 1- 0- 00 00 UC ve DC 20 20 20 97 [place] DE 81 17 17 66 0 62 CV 20 S PH MG AR MA TA CY BL ET LL C, DB A CV S PH AR MA CY #3 01 6 ME 68 01 02 60 30 00 KE Ac TF 38 -1 -1 .0 00 NT ti OR 20 0- 0- 00 00 UC ve DC 76 20 20 99 [place] N 01 [...] ve G 79 20 20 97 [place] DC 75 16 17 10 X 9 96 [...] DOS Code Location Performer Comment AMB A0427 [facility] SERVICE 7 AMBULANCE AMBULANCE ALS SERVICE SERVICE [place]SP[place] [address] ASHWINZach ASHOK HEAD/BRAI 7 MEDICAL N W/O IMAGING CONTRAST ASS MATERIAL RADIOLOGI 32759 YUINOR PULIDO C 7 MEDICAL EXAMINATI IMAGING ON CHEST ASS SINGLE VIEW FRONTAL ALS A0398 [facility] ROUTINE 7 AMBULANCE AMBULANCE DISPOSABL SERVICE SERVICE E SUPPLIES GROUND A0425 [facility] MILEAGE 7 AMBULANCE AMBULANCE PER SERVICE SERVICE STATUTE MILE RADEX 70198 [place] BURGOS ABDOMEN 1 7 MEDICAL SERV ANTEROPOS FOUNDATIO TERIOR N VIEW BLOOD 22998 [place] MATTHEW SMEAR 7 MEDICAL PERIPHERA SERV L INTERP FOUNDATIO PHYS N W/WRIT REPORT RADIOLOGI 04498 [facility] [place] MABRY C EXAM 7 RADIOLOGY CHEST 2 VIEWS FRONTAL&L ATERAL INITIAL 15745 [facility] 7 CLARISSA ADRIAN CARE/DAY PHYSICIAN DECALVO 70 SERVI MINUTES URNLS DIP 00138 [facility] 7 HEALTHCAR HEALTHCAR STICK/TAB E E LET RGNT LDS HOSPITAL HOSPITALS AUTO W/O MICROSCOP Y COMPREHEN 16784 [facility] SIVE 7 [facility]ALTHCAR HEALTHCAR METABOLIC E E PANEL [facility] [place] [address] [facility] LIPASE 7 HEALTHCAR HEALTHCAR E E HOSPITALS HOSPITALS THERAPEUT 45347 [facility] IC 7 HEALTHCAR HEALTHCAR PROPHYLAC E E TIC/DX [facility] INJECTION SUBQ/IM ONDANSETR Q0162 [facility] ON 1 MG 7 HEALTHCAR HEALTHCAR ORL NOT E E EXCEED 48 HOSPITALS HOSPITALS HR DOSE REG BLOOD 87775 [facility] COUNT 7 HEALTHCAR HEALTHCAR COMPLETE E E AUTOMATED HOSPITALS HOSPITALS DIAB ONLY A5500 [facility] FIT CSTM 7 BRACE BRACE PREP&SPL PROSTH PROSTH SHOE MX INC INC DNSITY INSRT FOR DIAB A5513 [facility] ONLY MX 7 BRACE BRACE DNSITY PROSTH PROSTH INSRT INC INC CSTM MOLD CSTM EA OBSERVATI [address] [facility] ON/INPATI 7 MEDICINE [facility] O [place] [address] [place] [address] [facility] ABDOMEN & 7 RADIOLOGY III PELVIS W/O CONTRAST MATERIAL BLOOD 65731 [facility] COUNT [address] [place] [address] HOSPITAL AUTOMATED COMPREHEN 319[address] [facility] [address]ALK [address] HOSPITAL PANEL PROTHROMB 49547 DILEEP S[facility] IN TIME 7 [facility] HOSPITAL PROTHROMB 72801 DILEEP [facility] IN TIME 7 [facility] OBSERVATI 75839 [facility] ON CARE 7 MEDICINE [place]CHAR[place] [address] DILEEP SORTOON AMMONIA [address] [place] [address] GLUC BLD 17676 DILEEP GALOURBON GLUC MNTR [address] [place] [address] HOSPITAL CLEARED FDA SPEC HOME USE GLUC BLD 71001 IRAJURBON IRAJURBON GLUC MNTR [address] [place] [address] HOSPITAL CLEARED FDA SPEC HOME USE BLOOD 70315 MACARIOON MACARIOON COUNT [address] [place] [address] HOSPITAL AUTO&[place] [address] MACARIOON MACARIOON AMMONIA [address] [place] [address] COMPREHEN 59555 [address] HOSPITAL PANEL PROTHROMB 62387 DILEEP SORTOON IN TIME 7 [facility] THROMBOPL 07036 DILEEP GALOANTWANON ASTIN [address] [place] [address] HOSPITAL PARTIAL PLASMA/[place] [address] DILEEP FALK LIPASE 7 [facility] PROTHROMB 86895 DILEEP FALK IN TIME 7 [facility] COMPREHEN 57347 DILEEP FALK SIVE [address] [place] [address] [place] [address] DILEEP FALK AMMONIA 7 [facility] INITIAL 73410 [facility] 7 MEDICINE ON SERVICES CARE/DAY O 70 MINUTES BLOOD 23741 DILEEP FALK COUNT [address] [place] [address] AUTO&AUTO DIFRNTL WBC URNLS DIP [address]ALK [address] [place] [address]/TAB HOSPITAL HOSPITAL LET REAGENT AUTO MICROSCOP Y BLD BANK 82866 [place] [facility] PHYS SVCS 7 MEDICAL DIFFC SERV CROSS FOUNDATIO MATCH&/EV N AL REP ESOPHAGOG 30653 [place] SUZAN GRAYD 7 MEDICAL ENOSCOPY SERV TRANSORAL FOUNDATIO N DIAGNOSTI C ANES 90359 [facility] [place] UPPER GI 7 MEDICAL ENDOSCOPY SERVICES PROXIMAL TO DUODENUM BLD BANK 59456 [place] [facility] PHYS SVCS 7 MEDICAL DIFFC SERV CROSS FOUNDATIO MATCH&/EV N AL REP INITIAL 37383 [facility] 7 CLARISSA ADRIAN CARE/DAY PHYSICIAN ELADIO 70 SERVI MINUTES COMPREHEN 09844 DILEEP REMYE [address] [place] [address] HOSPITAL PANEL BLOOD 72910 DILEEP MARTEL [address] [place] [address] HOSPITAL AUTOMATED RADIOLOGI 21062 [facility] [place] OLGA C EXAM 7 RADIOLOGY CHEST 2 VIEWS FRONTAL&L ATERAL DUP-SCAN 00036 [place] ROBERTH ARTL TIMOTHY 7 MEDICAL ABDL/PEL/ SERV SCROT&/RP FOUNDATIO R ORGN N COM RADIOLOGI 52580 [place] ANNA C EXAM 7 MEDICAL CHEST 2 SERV VIEWS FOUNDATIO FRONTAL&L N ATERAL ECG 53048 [place] NIESHA ROUTINE 7 MEDICAL ECG SERV W/LEAST FOUNDATIO 12 LDS N I&R ONLY DUP-SCAN 21714 [place] LAWANDA ARTL TIMOTHY 7 MEDICAL ABDL/PEL/ SERV SCROT&/RP FOUNDATIO R ORGN N [facility]OSPITAL [address] [place] AVALLONE DISCHARGE 7 MEDICAL DAY SERV MANAGEMEN FOUNDATIO T > 30 N MIN SBSQ 73068 [facility] 7 MEDICAL CARE/DAY SERV 35 FOUNDATIO MINUTES N SWALLOWIN 65947 [place] DL G FUNCJ 7 MEDICAL W/CINERAD SERV IOGRAPY/V FOUNDATIO IDRADIOG N SBSQ 61016 [facility] 7 MEDICAL CARE/DAY SERV 25 FOUNDATIO MINUTES N SBSQ 05343 [place] [address] MEDICAL CARE/DAY SERV 25 FOUNDATIO MINUTES N RADIOLOGI 73020 [place] LAYLA C 7 MEDICAL AYA EXAMINATI SERV ON CHEST FOUNDATIO SINGLE N VIEW FRONTAL ECG 76937 [place] BENSON ROUTINE 7 MEDICAL ECG SERV W/LEAST FOUNDATIO 12 LDS N I&R ONLY RADIOLOGI 39758 [place] ALANIS C 7 MEDICAL EXAMINATI SERV ON CHEST FOUNDATIO SINGLE N VIEW FRONTAL RADIOLOGI 17649 [place] ALANIS C 7 MEDICAL EXAMINATI SERV ON CHEST FOUNDATIO SINGLE N VIEW FRONTAL CRITICAL 43330 [place] ALONDRA CARE 7 MEDICAL ILL/INJUR SERV ED FOUNDATIO PATIENT N INIT 30-74 MIN ECG 57096 [place] DAMIAN ROUTINE 7 MEDICAL ECG SERV W/LEAST FOUNDATIO 12 LDS N I&R ONLY CRITICAL 83626 [place] ALONDRA CARE 7 MEDICAL ILL/INJUR SERV ED FOUNDATIO PATIENT N INIT 30-74 MIN RADIOLOGI 85674 [place] TREVON C 7 MEDICAL EXAMINATI SERV ON CHEST FOUNDATIO SINGLE N VIEW FRONTAL RADIOLOGI 12776 [place] ONEAL C 7 MEDICAL EXAMINATI SERV ON CHEST FOUNDATIO SINGLE N VIEW FRONTAL CRITICAL 13820 [place] AL[facility] CARE 7 MEDICAL ILL/INJUR SERV ED FOUNDATIO PATIENT N INIT 30-74 MIN COLONOSCO 99394 [place] SHEDLOFSK PY FLX DX 7 MEDICAL Y W/COLLJ SERV SPEC WHEN FOUNDATIO PFRMD N ESOPHAGOG 03-09-201 63414 [place] ANNELIESE ASTRODUOD 7 MEDICAL Y ENOSCOPY SERV TRANSORAL FOUNDATIO N DIAGNOSTI C RADEX 36423 [place] DL ABDOMEN 1 7 MEDICAL SERV ANTEROPOS FOUNDATIO TERIOR N VIEW RADEX 73263 [place] DL ABDOMEN 1 7 MEDICAL SERV ANTEROPOS FOUNDATIO TERIOR N VIEW DUP-SCAN 45041 [place] JESSICA ARTL TIMOTHY 7 MEDICAL ABDL/PEL/ SERV SCROT&/RP FOUNDATIO R ORGN N COM SBSQ 27910 [facility] 7 NURSE CARE/DAY PRACTITIO 25 NER GR MINUTES CRITICAL 10255 [place] AL[facility]DR[facility] CARE 7 MEDICAL ILL/INJUR SERV ED FOUNDATIO PATIENT N INIT 30-74 MIN RADIOLOGI 64028 [place] TREVON C 7 MEDICAL EXAMINATI SERV ON CHEST FOUNDATIO SINGLE N VIEW FRONTAL RADIOLOGI 30524 [place] INDU C 7 MEDICAL EXAMINATI SERV ON CHEST FOUNDATIO SINGLE N VIEW FRONTAL CRITICAL 12287 [place] [facility] CARE 7 MEDICAL ILL/INJUR SERV ED FOUNDATIO PATIENT N INIT 30-74 MIN CRITICAL 80784 [place] AL[facility] CARE 7 MEDICAL ILL/INJUR SERV ED FOUNDATIO PATIENT N INIT 30-74 MIN SBSQ 34517 [facility] 7 NURSE CARE/DAY PRACTITIO 35 NER GR MINUTES RADIOLOGI 86169 [place] ONEAL C 7 MEDICAL EXAMINATI SERV ON CHEST FOUNDATIO SINGLE N VIEW FRONTAL ECG 96237 [place] BENSON ROUTINE 7 MEDICAL ECG SERV W/LEAST FOUNDATIO 12 LDS N I&R ONLY RADIOLOGI 48361 [place] RONAN C 7 MEDICAL EXAMINATI SERV ON CHEST FOUNDATIO SINGLE N VIEW FRONTAL RADIOLOGI 90796 [place] RONAN C 7 MEDICAL EXAMINATI SERV ON CHEST FOUNDATIO SINGLE N VIEW FRONTAL RADEX 32629 [place] JESSICA ABDOMEN 1 7 MEDICAL SERV ANTEROPOS FOUNDATIO TERIOR N VIEW GROUND A0425 [facility] MILEAGE 7 AMBULANCE AMBULANCE PER SERVICE SERVICE STATUTE MILE ECG 79116 [place] B[facility] ROUTINE 7 MEDICAL ECG SERV W/LEAST FOUNDATIO 12 LDS N I&R ONLY RADIOLOGI 79349 [facility] WYNNE C 7 MEDICAL MONA EXAMINATI SERV ON CHEST FOUNDATIO SINGLE N VIEW FRONTAL AMB A0427 [facility] SERVICE 7 AMBULANCE AMBULANCE ALS SERVICE SERVICE EMERGENCY TRANSPORT LEVEL 1 [facility] 16893 [facility] N[facility]OL[facility] PHYS SVCS 7 MEDICAL AUTHJ SERV DEVIJ FOUNDATIO STANDARD N REPRT INITIAL 77139 [facility] INPATIENT 7 NURSE CONSULT PRACTITBRIELLE ARROYO/MATTIE VALDOVINOS GR PT 80 MIN SERVICES 66837 [facility] PROVIDED 7 PHYSICIAN U BTW 10 S, PLLC PM&8 AM AT 24-HR FACI AMB A0427 [facility] SERVICE 7 AMBULANCE AMBULANCE ALS SERVICE SERVICE EMERGENCY TRANSPORT LEVEL 1 GROUND A0425 [facility] MILEAGE 7 AMBULANCE AMBULANCE PER SERVICE SERVICE STATUTE MILE GROUND A0425 [facility] MILEAGE 7 AMBULANCE AMBULANCE PER SERVICE SERVICE STATUTE MILE AMBULANCE A0429 [facility] SERVICE 7 AMBULANCE AMBULANCE S SERVICE SERVICE EMERGENCY TRANSPORT RADIOLOGI 51854 [place] [facility] EXAM 7 MEDICAL CHEST 2 IMAGING VIEWS ASS FRONTAL&L ATERAL SERVICES 61129 [facility] PROVIDED 7 PHYSICIAN U BTW 10 S, PLLC PM&8 AM AT 24-HR FACI CRITICAL 30833 [facility] PHYSICIAN U ILL/INJUR S, PLLC ED PATIENT INIT 30-74 MIN GROUND A0425 [facility] MILEAGE 7 [facility] PER [facility] STATUTE EMS EMS MILE OBSERVATI 59257 [facility] ON CARE 7 MEDICINE A DISCHARGE SERVICES O MANAGEMEN T INITIAL 44574 [facility] OBSERVATI 7 MEDICINE A ON SERVICES CARE/DAY O 70 MINUTES RADIOLOGI 01075 [facility] [place] [facility] C EXAM 7 RADIOLOGY CHEST 2 VIEWS FRONTAL&L ATERAL RADIOLOGI 40056 [facility] EXAM 7 MEDICAL CHEST 2 IMAGING VIEWS ASS FRONTAL&L ATERAL RADIOLOGI 74902 [place] [facility] C EXAM 7 MEDICAL CHEST 2 IMAGING VIEWS ASS FRONTAL&L ATERAL GROUND A0425 [facility]ANCE AM[facility]ULANCE PER SERVICE SERVICE STATUTE MILE [facility] A0427 [facility] SERVICE 7 AMBULANCE AMBULANCE ALS SERVICE SERVICE EMERGENCY TRANSPORT LEVEL 1 RADEX 37116 [facility] [place] RIBS 6 RADIOLOGY UNILATERA L 2 VIEWS PROTHROMB 17594 [facility] DILEEP IN TIME 6 [facility] COLLECTIO 83743 [facility] N VENOUS 6 [facility] VENIPUNCT URE COMPREHEN 38935 [facility] SIVE 6 [facility] PANEL BLOOD 19022 [facility] COUNT 6 [facility] [place] [address] [facility] [place] ABDOMEN & 6 RADIOLOGY RHO PELVIS W/O CONTRAST MATERIAL RADEX 26185 [facility] [place] RIBS UNI 6 RADIOLOGY RHO W/POSTERO ANT CH MINIMUM 3 VIEWS RADIOLOGI 37826 [facility] MATIAS C 6 [place] EXAMINATI EMERGENCY ON CHEST PHYS SINGLE VIEW FRONTAL RADEX 24587 [facility] 6 [place] UNILATERA EMERGENCY L 2 VIEWS PHYS RADIOLOGI 79503 [facility] [place] C 6 RADIOLOGY RHO EXAMINATI ON CHEST SINGLE VIEW FRONTAL ECG 75799 [facility] ARNOLD ROUTINE 6 CLARISSA LAST ECG EMERGENCY W/LEAST PHYS 12 LDS I&R ONLY ECG 49437 ND DAMIAN LASHAWN ROUTINE 6 MEDICAL ECG SERV W/LEAST FOUNDATIO 12 LDS N I&R ONLY RADIOLOGI 58996 ND DAGO HOGAN C EXAM 6 MEDICAL MARY KATE CHEST 2 SERV VIEWS FOUNDATIO FRONTAL&L N ATERAL HEMOGLOBI 27837 S JIM N 6 NURSE REGINALD GLYCOSYLA PRACTITIO DANE A1C NER GR POLYSOM 96525 LINDA GALLO GALLO LINDA 6/>YRS 6 MD SLEEP 4/> CONSULTIN ADDL G SRV SYBIL ATTND MRI 52633 [place] [facility] JENNIFER ABDOMEN 6 MEDICAL W/O & SERV W/CONTRAS FOUNDATIO T N MATERIAL POLYSOM 26018 DILEEP FALK 6/>YRS 6 [facility] SLEEP 4/> [facility]PITAL [facility]PITAL ADDL SYBIL ATTND BLOOD 09202 DILEEP FALK COUNT 6 [facility] AUTOMATED PROTHROMB 52884 DILEEP FALK IN TIME 6 [facility] COMPREHEN 95533 DILEEP FALK SIVE 6 [facility] PANEL COLLECTIO 85930 DILEEP FALK N VENOUS 6 [facility] VENIPUNCT URE ECHO 02922 LINDA GALLO GALLO LINDA TTHRC R-T 6 2D CONSULTIN W/WOM-MOD G SRV E COMPL SPEC&COLR D COLLECTIO 29815 MANUEL ARNDT JAMIE N VENOUS 6 FAMILY BLOOD PHYSICIAN VENIPUNCT S PLLC URE COMPREHEN [address]13 [address] SIVE 6 GROUP [facility] PANEL INITIAL 18177 [facility] OBSERVATI 6 CLARISSA ISIDRA ON PHYSICIAN CARE/DAY SERVI 30 MINUTES RADIOLOGI 81196 [facility] [place] SHAY C 6 RADIOLOGY III MARY KATE EXAMINATI ON CHEST SINGLE VIEW FRONTAL RADIOLOGI 92885 [facility] SWINEY C 6 CLARISSA PAT EXAMINATI EMERGENCY ON CHEST PHYS SINGLE VIEW FRONTAL RADIOLOGI 00140 [facility] [place] SCALF MARILIN C EXAM 6 RADIOLOGY CHEST 2 VIEWS FRONTAL&L ATERAL ECG 65952 [facility] ROUTINE 6 CLARISSA PAT ECG EMERGENCY W/LEAST PHYS 12 LDS I&R ONLY LACTATE 41303 [facility] DEHYDROGE 6 Y Y NASE [facility] [place] [address] [facility] GAMMAGLOB 6 Y Y [facility] [place] [address] [facility] HAPTOGLOB 6 Y Y IN [facility] QUANTITAT NAIF ANTINUCLE 70883 [facility] FLOWER MOUND 6 Y Y [facility] S COLLINS BLOOD 35782 [facility] COUNT 6 Y Y [facility] YTES AUTO 1/> [place] [address] [facility] FREE 6 Y Y [facility] CERULOPLA 94958 [facility] SMIN 6 [place] [address] [facility] FOLIC 6 Y Y ACID RBC [facility] [place] [address] [facility] IRON 6 Y Y HOSPITAL HOSPITAL HEPATITIS 37913 [facility] B SURF 6 Y [facility] [place] [address] [facility] FERRITIN 6 Y Y HOSPITAL [facility] IMMUNOASS 83756 [facility] AY 6 Y Y [facility] QUAL/SEMI QUAL MULTIPLE STEP GENERAL 85086 [facility] HEALTH 6 Y Y PANEL [facility] COLD 81747 [facility] AGGLUTINI 6 Y Y N [facility]ITER [facility] COLLECTIO 47406 [facility] N VENOUS 6 Y Y BLOOD [facility] VENIPUNCT URE HEPATITIS 00488 [facility] A 6 Y Y [facility] [place] [address] [place] [place] SCALF MARILIN ABDOMEN & 5 RADIOLOGY PELVIS W/CONTRAS T MATERIAL ESOPHAGOG 32441 DAYNA TURNER ASTRODUOD [address] [place] [address] ENOSCOPY PHYSICIAN TRANSORAL PRA DIAGNOSTI C ANES 07044 [place] UPPER GI 5 ANESTHESI ENDOSCOPY A GROUP PROXIMAL PS TO DUODENUM RADIOLOGI 25342 [facility] C [address] [place] [address] ON CHEST SINGLE VIEW FRONTAL RADEX 78855 [facility] SPINE [address] [place] [address] AL 2/3 [place] [address] [facility] LIPASE [address] [place] [address] [place] [address] [facility] AMYLASE [address] [place] [address] COMPREHEN 66418 [facility] SIVE [address] [place] [address] HOSPITAL PANEL IAADIADOO [address] INFLUENZA [facility] HI OSM Q9963 DILEEP FALK CONTRST 5 [facility] [phone] MG/ML IODINE CONC ML URNLS DIP 75048 [facility] DILEEP [address] [place] [address] [facility]PITAL LET REAGENT AUTO MICROSCOP Y GLUC BLD 88448 DILEEP FALK GLUC MNTR 5 [facility] CLEARED FDA SPEC HOME USE BLOOD 62548 DILEEP FALK COUNT 5 [facility] AUTO&[place] [address] [facility]TH[facility] FALK ABDOMEN & 5 [facility] PELVIS [facility] W/O CONTRAST MATERIAL ONDANSETR Q0162 DILEEP FALK ON 1 MG 5 [facility] EXCEED 48 HR DOSE REG COLLECTIO 08410 DILEEP FALK N VENOUS 5 [facility] VENIPUNCT URE COLLECTIO 13250 [facility]NN [facility] N VENOUS 5 [facility] VENIPUNCT URE COMPREHEN 01993 DILEEP FALK SIVE [address] [place] [address] [place] [address] IRAJHAWTHORN [facility] HOSPITALJOCELYNN FALK LIPASE [address] [place] [id number] KETOROLAC [facility] TROMETHAM INE PER 15 MG URNLS DIP 58246 [facility]WTH[facility]ITALJOCELYNN FALK [address] [place] [address] [facility] HOSPITAL LET REAGENT AUTO MICROSCOP Y BLOOD 62757 DILEEP FALK COUNT 5 [facility] AUTO&AUTO DIFRNTL WBC BLOOD 81075 [facility] UNIVERSIT COUNT 5 Y Y [facility] HOSPITAL AUTO&[place] [address] [facility] ABDOMINAL 5 Y Y [facility] HOSPITAL TIME W/[place] [address] UN[facility] LIPASE 5 [place] [address] [facility] LACTATE 5 Y Y [facility]OSPITAL HOSPITAL COMPREHEN 98212 [facility] SIVE 5 [facility] PANEL INJECTION J2405 [facility] UN[facility]IT 5 [facility] ON HCL PER 1 MG THER 85311 [facility] 5 Y Y NJX [facility]OSP[facility] PUSH SINGLE/1S [place] SBST/[place] [address] [place] [place] ABDOMINAL 5 RADIOLOGY RHO REAL TIME W/[place] [address] [facility] ABDOMINAL 5 [facility] TIME W/IMAGE DOCUMENTA TION INJECTION [id number] ON HCL PER 1 MG INJECTION J1170 [address] JEANNINE UP TO 4 MG HOSPITAL [address]00 [facility] 5 CLARISSA EDGAR IGN DAY PHYSICIAN MANAGEMEN SERVI T 30 MIN/< SBSQ 01215 [place] [address] CL[place]IS[place] HUG CARE/DAY PHYSICIAN 25 SERVI MINUTES SBSQ 23710 [place] [address] CL[place] HUG CARE/DAY PHYSICIAN 35 SERVI MINUTES INITIAL 29531 [facility] 5 CLARISSA A GOP CARE/DAY PHYSIC[place] [address] [place] [address] [facility] [place] WE[place] ABDOMEN & 5 RADIOLOGY RAY PELVIS W/O CONTRAST MATERIAL HEMOGLOBI [address] N 5 GROUP GROUP GLYCOSYLA LABS Oyster LABS Oyster DANE A1C BLOOD 30675 [address] PATH COUNT 5 GROUP GROUP COMPLETE [facility] AUTO&AUTO DIFRNTL WBC COLLECTIO 87096 MANUEL GREEN JAMIE N VENOUS 5 FAMILY BLOOD PHYSICIAN VENIPUNCT S PLLC URE COMPREHEN [address]37 [address] SIVE 5 [facility] PANEL CYANOCOBA [address] NAHOMI 5 GROUP GROUP VITAMIN LABS [facility] LABS Oyster B-12 [place] [address] [facility] LIPASE [address] [place] [address] COMPREHEN 75808 [facility] SIVE [address] [place] [address] PANEL COLLECTIO 15425 [facility] N VENOUS [address] [place] [address] VENIPUNCT URE GLUC BLD 32825 [facility] GLUC MNTR 5 [facility] CLEARED FDA SPEC HOME USE GLUC BLD 26476 [facility] GLUC MNTR 5 [facility] CLEARED FDA SPEC HOME USE BLOOD 87759 [facility] PET COUNT 5 [facility] AUTOMATED PRESSURIZ 44804 [facility] ED/NONPRE [address] [place] [address] SSLONG [facility] INHALATIO N TREATMENT COMPREHEN 22057 [facility] SIVE [address] [place] [address] HOSPITAL PANEL INITIAL [address] ON PHYSICIAN CARE/DAY SERVI 70 MINUTES GENERAL [address]OSPITAL IAADIADOO [address] [facility] [id number] [place] [address] [facility] AMYLASE [address] [place] [address] [place] [address] [facility] LIPASE [address] [place] [address] HOSPITAL NONINVASI 59541 [facility] VE [address] [place] [address] [facility] OXIMETRY SINGLE DETER RADIOLOGI 13077 [facility] [place] C EXAM 5 RADIOLOGY RHO CHEST 2 VIEWS FRONTAL&L ATERAL GLUC BLD 65081 [facility] GLUC MNTR 5 [facility] CLEARED FDA SPEC HOME USE NATRIURET 92986 [facility] IC [address] [place] [address] PEPTIDE [facility] URNLS DIP [address] [facility] HOSPITAL LET REAGENT AUTO MICROSCOP Y CULTURE 30134 [facility] BACTERIAL [address] [place] [address] HOSPITAL AEROBIC W/ID ISOLATES IAADIADOO [address] [facility] CCUS GROUP A HEMOGLOBI 61046 [facility] JOSE ANTONIO LUISA N 4 NURSE PETER PRACTITBRIELLE DANE A1C NER GR IM ADM [id number] 96162 [facility] PRQ ID 4 [facility] DISTRICT SUBQ/IM HLTH DEPT HLTH DEPT NJXS EA RESHMA RESHMA VACCINE HEPA 68907 [facility] VACCINE 4 [facility] ADULT HLTH DEPT HLTH DEPT DOSE FOR RESHMA RESHMA INTRAMUSC ULAR USE HEPB 57332 [facility] VACCINE 4 [facility] ADULT 3 HLTH DEPT HLTH DEPT DOSE RESHMA RESHMA SCHEDULE FOR IM USE IM ADM 56321 [facility] PRQ ID 4 [facility] SUBQ/IM HLTH DEPT HLTH DEPT NJXS 1 RESHMA RESHMA VACCINE RADEX 71734 [facility] [place] ABDOMEN 4 RADIOLOGY RHO COMPL W/DCBTS&/ [place] [address] [facility] [place] ABDOMINAL 4 RADIOLOGY RHO REAL TIME W/IMAGE DOCUMENTA TION DXA BONE 88946 [facility] [place] DENSITY 4 RADIOLOGY RHO STUDY 1/> SITES AXIAL SKEL COMPRE 25394 [place] [facility] SET AUDIOMETR 4 PHYSICIAN Y PRACTICE THRESHOLD L EVAL SP RECOGNIJ TYMPANOME 87749 [place] [facility] SET TRY 4 PHYSICIAN PRACTICE L PROTHROMB 29880 [facility] IN TIME 4 Y Y HOSPITAL [facility] HEPATITIS 10530 [facility] HBSAB HEPATITIS 37129 [facility] 4 Y Y [facility] Encounters Encounter Start End Date Code Location Performer Type Date EMERGENCY [facility] DE[facility] 7 7 CL[place] VISIT EMERGENCY HIGH PHYS SEVERITY& THREAT FUNCJ EMERGENCY 23184 [facility] 7 7 CLARISSA DEPARTMEN EMERGENCY T VISIT PHYS HIGH/URGE NT SEVERITY EMERGENCY 36713 ND DARA DEPT 7 7 MEDICAL VISIT SERV HIGH FOUNDATIO SEVERITY& N THREAT FUNCJ EMERGENCY 58502 7 7 HEALTHCAR DEPARTMEN E T VISIT HOSPITALS HIGH/URGE NT SEVERITY [facility] EMERGENCY 36943 [facility] DE[facility] 7 7 CLARISSA VISIT EMERGENCY HIGH PHYS SEVERITY& THREAT [facility] 7 7 [facility] 51030 [facility] HIGH SEVERITY& THREAT FUNJ EMERGENCY 45901 [facility] DE[facility] 7 7 MEDICAL VISIT SERV HIGH FOUNDATIO SEVERITY& N THREAT FUNJ OFFICE 14017 [facility] 7 7 FAMILY T VISIT PHYSICIAN 15 S PLLC MINUTES EMERGENCY 34600 [facility] 7 7 CLARISSA DEPARTMEN EMERGENCY T VISIT PHYS HIGH/URGE NT SEVERITY [facility]OSP[facility] - 7 [facility]ALS EMERGENCY 38770 [facility] DIAMOND DEPT 7 7 MEDICAL VISIT SERV HIGH FOUNDATIO SEVERITY& N THREAT [facility] [place] [place] - 7 7 [facility] T EMERGENCY 82541 [facility] 7 7 CLARISSA DEPARTMEN EMERGENCY T VISIT PHYS HIGH/URGE NT SEVERITY EMERGENCY 27797 [facility] DEPT 7 7 CL[place]ISSA VISIT EMERGENCY HIGH PHYS SEVERITY& THREAT FUNJ EMERGENCY 36960 [facility] DEPT 7 7 PHYSICIAN U VISIT S, PLLC HIGH SEVERITY& THREAT FUNCJ OFFICE 87733 [facility] 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 CONSULTAT 7 7 MEDICAL ION SERV NEW/ESTAB FOUNDATIO PATIENT N 80 MIN EMERGENCY 51753 [facility] ROSENBAUM 7 7 MEDICAL DEPARTMEN SERV T VISIT FOUNDATIO MODERATE N SEVERITY EMERGENCY 13663 [facility] GEREMIAS DEPT 7 7 CLARISSA VISIT EMERGENCY HIGH PHYS SEVERITY& THREAT FUNJ EMERGENCY 74800 [facility] CHESTNUT 6 6 CLARISSA DEPARTMEN EMERGENCY T VISIT PHYS HIGH/URGE NT SEVERITY EMERGENCY 09426 [facility] SWINEY 6 6 CLARISSA PAT DEPARTMEN EMERGENCY T VISIT PHYS HIGH/URGE NT SEVERITY [facility] [place] - 6 6 [facility] T OFFICE 03000 MANUEL AYALA OUTPATIEN 6 6 FAMILY T VISIT PHYSICIAN 15 S PLLC MINUTES EMERGENCY 79707 [facility] MATIAS DEPT 6 6 [place] VISIT EMERGENCY HIGH PHYS SEVERITY& THREAT FUNCJ EMERGENCY 20184 [facility] ARNOLD DEPT 6 6 CLARISSA LAST VISIT EMERGENCY HIGH PHYS SEVERITY& THREAT FUNCJ EMERGENCY [address] 6 6 MEDICAL DEPARTMEN SERV T VISIT FOUNDATIO LOW/MODER N SEVERITY OFFICE 62798 [facility] 6 6 NURSE REGINALD T VISIT PRACTITIO 25 NER GR MINUTES EMERGENCY 13080 [facility] SWINEY 6 6 CLARISSA PAT DEPARTMEN EMERGENCY T VISIT PHYS HIGH/URGE NT SEVERITY [facility] 6 [facility] T [facility]OSP[facility] [place] - 6 6 [facility] T OFFICE 25879 [facility] 6 6 FOOT & T NEW 30 ANKLE CE MINUTES OFFICE 76340 MANUEL AYALA OUTPATIEN 6 6 FAMILY T VISIT PHYSICIAN 15 S PLLC MINUTES EMERGENCY 15071 [facility] MERCADOID INA 6 6 MEDICAL DEPARTMEN SERV T VISIT FOUNDATIO MODERATE N SEVERITY EMERGENCY 62358 [facility] DEPT 6 6 CLARISSA KATHY VISIT EMERGENCY HIGH PHYS SEVERITY& THREAT FUNCJ OFFICE 76438 MANUEL YRIS AYALA OUTPATIEN 6 6 FAMILY T VISIT PHYSICIAN 25 S PLLC MINUTES EMERGENCY 45048 [facility] DEPT 6 6 CLARISSA PAT VISIT EMERGENCY HIGH PHYS SEVERITY& THREAT FUNCJ EMERGENCY 29959 [facility] DEPT 6 6 CLARISSA KATHY VISIT EMERGENCY HIGH PHYS SEVERITY& THREAT FUNCJ OFFICE 74121 [facility] 6 6 Y OF RTHY JERRY T VISIT [place] 15 HOSPI MINUTES OFFICE 60476 MANUEL GREEN JAMIE OUTPATIEN 6 6 FAMILY T VISIT PHYSICIAN 15 S PLLC MINUTES EMERGENCY 90505 [facility] 6 6 CLARISSA PAT DEPARTMEN EMERGENCY T VISIT PHYS HIGH/URGE NT SEVERITY [facility]OSPITAL [facility] - 6 6 [facility] 82644 MANUEL GREEN JAMIE OUTPATIEN 5 5 FAMILY T VISIT PHYSICIAN 15 S PLLC MINUTES OFFICE 61564 MANUEL GREEN JAMIE OUTPATIEN 5 5 FAMILY T VISIT PHYSICIAN 25 S PLLC MINUTES OFFICE 03963 MANUEL GREEN JAMIE OUTPATIEN 5 5 FAMILY T VISIT PHYSICIAN 15 S PLLC MINUTES EMERGENCY 46516 [facility] DEPT 5 5 CLARISSA COLLINS VISIT EMERGENCY HIGH PHYS SEVERITY& THREAT FUNCJ EMERGENCY 92353 [facility] 5 5 [facility] T VISIT HIGH/URGE NT SEVERITY [facility] 5 5 [facility] T [facility] - 5 5 [facility] T EMERGENCY 30953 [facility] CELLARO 5 5 CLARISSA - YORBA DEPARTMEN EMERGENCY PAT T VISIT PHYS HIGH/URGE NT SEVERITY EMERGENCY 40037 [facility] 5 5 [facility]ICAL [facility] DEPARTMEN SERV T VISIT FOUNDATIO MODERATE N SEVERITY EMERGENCY 96407 [facility] 5 5 Y [facility] T VISIT HIGH/URGE NT SEVERITY HOSPITAL [facility] - 5 5 [facility] 5 5 [facility] T OFFICE 65593 MANUEL [facility] 5 5 FAMILY T VISIT PHYSICIAN 25 S PLLC MINUTES [facility]OSP[facility] [place] - 5 5 [facility] T EMERGENCY 24112 [place] 5 5 [facility] T VISIT MODERATE SEVERITY EMERGENCY 66012 [facility] SON BAB 5 5 CLARISSA DEPARTMEN EMERGENCY T VISIT PHYS HIGH/URGE NT SEVERITY OFFICE 51555 [facility]EL [facility] 5 FAMILY T VISIT PHYSICIAN 15 S PLLC MINUTES EMERGENCY 99400 [facility] CHANDEL DEPT 5 5 CLARISSA COLLINS VISIT EMERGENCY HIGH PHYS SEVERITY& THREAT [facility] [place] - 5 5 [facility] OFFICE 06581 MANUEL AYALA [facility] 5 5 FAMILY T VISIT PHYSICIAN 15 S PLLC MINUTES EMERGENCY 18293 [facility] 5 [facility] EMERGENCY T VISIT PHYS HIGH/URGE NT SEVERITY EMERGENCY 94874 [place] 5 5 [facility] T VISIT MODERATE SEVERITY [facility] [place] - 5 5 [facility] T OFFICE 26459 MANUEL AYALA OUTPATIEN 5 5 FAMILY T VISIT PHYSICIAN 15 S PLLC MINUTES EMERGENCY 87307 [facility] DAXA II DEPT 5 5 CLARISSA THO VISIT EMERGENCY HIGH PHYS SEVERITY& THREAT [facility] 5 5 [facility] T OFFICE 11744 [facility] JOSE ANTONIO [facility] 4 4 NURSE T NEW 45 PRACTITIO MINUTES NER GR OFFICE 88103 MANUEL AYALA OUTPATIEN 4 4 FAMILY T VISIT PHYSICIAN 15 S PLLC MINUTES OFFICE 21432 MANUEL AYALA OUTPATIEN 4 4 FAMILY T VISIT PHYSICIAN 25 S PLLC MINUTES EMERGENCY 23643 [facility] 4 4 [place] [facility] VISIT EMERGENCY HIGH PHYSI SEVERITY& THREAT [facility] DILEEP - 4 4 [facility] T OFFICE 45616 DILEEP [facility] OUTPATIEN 4 4 PHYSICIAN LES T VISIT PRACTICE 15 L MINUTES OFFICE 53321 [facility] OUTPATIEN 4 4 MEDICAL BELLA T VISIT SERV 25 FOUNDATIO MINUTES [facility] UNIVERSIT - 4 4 [facility] T OFFICE 24431 DILEEP [facility] 4 4 PHYSICIAN LES ION PRACTICE NEW/ESTAB L PATIENT 40 MIN OFFICE 90160 MANUEL AYALA OUTPATIEN 4 4 FAMILY T VISIT PHYSICIAN 15 S PLLC MINUTES
--- OUTSIDE RECORDS SUMMARY | 2017-06-28 02:53 | External Medical Summary Rpt | CCD ---
Author Author , UNIQUE CALHOUN Address Unknown Phone [email or web address] Immunization Name Date Rout CVX Reac Dose [...]
--- OUTSIDE RECORDS SUMMARY | 2017-06-28 02:53 | External Medical Summary Rpt | CCD ---
Author Author , UNIQUE CALHOUN Address Unknown Phone [email or web address] Immunization Name Date Rout CVX Reac Dose [...]
[2017-06-28 03:05] LABS: URINE BILIRUBIN - DIPSTICK NEGATIVE (NEG); URINE BLOOD 1+ (NEG)
[2017-06-28 03:22] LABS: HEMOGLOBIN 10.8 g/dL (14.1-18.0); LYMPH % 24.8 % (10-50)
[2017-06-28 07:33] VITALS: BP 163/86
--- NOTE | 2017-06-28 09:44 | RADIOLOGY REPORT PS360 ---
CHEST-AP VIEW ONLY HISTORY: flank painleft flank and left chest pain Patient Age: 42 years: Male Ordering Physician: Jamila Monreal MD TECHNIQUE: AP chest COMPARISON :05/13/2017 and November 2016 FINDINGS Lungs well expanded and clear 3. Heart scar and mediastinal structures unremarkable . Normal pulmonary vascularity. Chest wall unremarkable. Side-port Small calcified granulomata left upper lobe is similar to previous study IMPRESSION: Stable chest. No active disease
--- NOTE | 2017-06-28 12:48 | RADIOLOGY REPORT PS360 ---
CT ABD PELVIS W/O CONTRAST HISTORY: ABD PAINgeneralized abdominal pain and vomiting blood patient on transplant list for liver Patient Age: 42 years: Male Ordering Physician: Jamila Monreal MD TECHNIQUE: Helical CT scanning through abdomen and pelvis with no oral nor IV contrast. Sagittal and coronal reconstruction CT workstation COMPARISON :November 2016 CT abdomen with contrast. Also September 2016 CT abdomen pelvis without contrast. FINDINGS Lung bases. Nothing definitely acute. Again note generous wall thickness distal esophagus towards again noted., Likely in part reflect associated, & adjacent varices. If anything this feature is slightly less pronounced today than previous studies Abdomen/pelvis. Lack of IV contrast decreases sensitivity Liver is cirrhotic.. Note Nodular margin with slightly decreased volume right lobe compared to left. Stable small hepatic cystsat left lobe.. A TIPS stent is now in place/ portal venous shunt.-This is new since previous November exam. 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 These were best appreciated on the previous postcontrast study from November. However they persist on but it favoring may be slightly less pronounced. It spleen is enlarged but not as prominent as previous study. Previously measuring up to 17 mm length and today at 13.5 mm length comparable measurement points... Spleen previously 17.5 cm AP dimension; and today decreased to 15.5 cm AP dimension Gallbladder. Contracted with Numerous calcified gallstones again seen in diffuse hyperdense bile or sludge filling the gallbladder.. No ascites is evident today. Has Resolved since November. No bowel dilatation or obstruction. Moderate stool throughout the colon. Normal terminal ileum. Appendix normal. Degenerative disc changes L5/S1 with bilateral pars defects again noted. Mild grade 1 listhesis L5 on S1 Pelvis. Urinary bladder unremarkable with upper normal wall thickness posteriorly. Modest appearing prostate with minimal central calcification. But no pelvic mass or adenopathy. No free fluid. Upper normal wall thickness at the verge.. IMPRESSION:. 1. No acute findings abdomen or pelvis. 2. Prominent Cirrhosis liver with interval TIPS stent placement since November. . Splenomegaly has decreased slightly since November 2016. Ascites has fully resolved since November. ... Prominent large varices again noted most pronounced towards left abdomen. However these if anything appears slightly less distended than on November & September 2016 CT studies. 3..Cholelithiasis again noted now with diffuse slight hyperdense sludge/material gallbladder more evident.
== END 2017-06-28 07:38 | disposition home or self-care (01) ==
LOC: ER 02:11
PROVIDERS: Emergency Medicine
DX: K80.80 Other cholelithiasis without obstruction (principal); K75.81 Nonalcoholic steatohepatitis (NASH); K72.10 Chronic hepatic failure without coma; I10 Essential (primary) hypertension; E11.9 Type 2 diabetes mellitus without complications; E80.4 Gilbert syndrome; Z79.899 Other long term (current) drug therapy; Z79.4 Long term (current) use of insulin; K21.9 Gastro-esophageal reflux disease without esophagitis